=== PATIENT | male | born 1935 | race Hispanic/Latino ===

== ENCOUNTER 2016-11-09 11:21 | Inpatient (IN) | payer MEDICARE, OTHER ==
--- NOTE | 2016-11-09 11:51 | ED PDOC ---
Lower Extremity Pain/Injury Chief Complaint (Provider): right leg open wound History Per: Patient, Family (son ) Additional Complaint(s): 81-year-old male presents to ER for evaluation of open wound to right ankle region. Patient has chronic wound to right ankle region for several years but over the past week he has noticed drainage and erythema to affected area. He denies trauma or injury. He denies any fever or chills. Patient has noted increased pain especially when walking over the past few days. He presents today further evaluation with his son at bedside. PMD: Dr. Dueñas Depalletizer Operator: Dr. Vergara <Angelique Contreras - Last Filed: 11/09/16 19:53> <Angelique Ramey - Last Filed: 11/09/16 23:45> Time Seen by Provider: 11/09/16 11:43 Chief Complaint (Nursing): Lower Extremity Problem/Injury Supervising Attending Note - Supervising Attending Note The Documented history was done by the: Physician Fish Tender The documented physical exam was done by the: Physician Fish Tender, Attending Physician - Attestation: I have personally seen and examined this patient.: Yes I have fully participated in the care of the patient.: Yes I have reviewed all pertinent clinical information, including history, physical exam and plan: Yes <Angelique Ramey - Last Filed: 11/09/16 23:45> Past Medical History Reviewed: Historical Data, Nursing Documentation, Vital Signs Vital Signs: Last Vital Signs Temp 98.2 F 11/09/16 11:27 Pulse 50 L 11/09/16 11:27 Resp 16 11/09/16 11:27 BP 124/68 11/09/16 11:27 Pulse Ox 97 11/09/16 11:27 - Medical History PMH: Atrial Fibrillation, CAD, HTN - Surgical History Surgical History: Pacemaker, Tonsillectomy - Family History Family History: States: No Known Family Hx - Living Arrangements Living Arrangements: Alone - Social History Current smoker - smoking cessation education provided: No Ex-Smoker (has not smoked in the last 12 months): Yes (quit 20 years ago) Alcohol: None Drugs: Denies <Angelique Contreras - Last Filed: 11/09/16 19:53> Vital Signs: Last Vital Signs Temp 98.2 F 11/09/16 11:27 Pulse 35 L 11/09/16 18:50 Resp 19 11/09/16 18:50 BP 159/79 H 11/09/16 18:50 Pulse Ox 97 11/09/16 20:00 <Angelique Ramey - Last Filed: 11/09/16 23:45> - Home Medications Home Medications: Ambulatory Orders Medication Instructions Recorded Calcium Carbonate/Vitamin D3 1 tab DAILY 11/09/16 [Calcium 600-Vit D3 800 Caplet] Cyanocobalamin [Vitamin B12 100 100 mcg PO DAILY 11/09/16 mcg Tab] Digoxin [Lanoxin] 125 mcg PO DAILY 11/09/16 Levothyroxine [Synthroid] 175 mcg PO DAILY 11/09/16 Warfarin Sodium [Jantoven] 2 mg PO QOTHERDAY 11/09/16 Warfarin Sodium [Jantoven] 5 mg PO QOTHERDAY 11/09/16 - Allergies Allergies/Adverse Reactions: Allergies Allergy/AdvReac Type Severity Reaction Status Date / Time No Known Allergies Allergy RASH Verified 11/09/16 11:44 Wells Criteria for PE - Wells Criteria for Pulmonary Embolism Clinical Signs and Symptoms of DVT: No P.E is #1 Diagnosis, or Equally Likely: No Heart Rate >100: No Immobilization at least 3 days;Surgery previous 4 weeks: No Previous, objectively diagnosed PE or DVT: No Hemoptysis: No Malignancy w/treatment within 6 months, or palliative: No Total Score: 0 <Angelique Contreras - Last Filed: 11/09/16 19:53> Review of Systems ROS Statement: Except As Marked, All Systems Reviewed And Found Negative Constitutional: Negative for: Fever, Chills, Weakness Cardiovascular: Negative for: Chest Pain Gastrointestinal: Negative for: Nausea, Vomiting Skin: Positive for: Other (open wound to right leg) Neurological: Negative for: Weakness, Confusion, Headache, Dizziness <Angelique Contreras - Last Filed: 11/09/16 19:53> Physical Exam - Reviewed Nursing Documentation Reviewed: Yes Vital Signs Reviewed: Yes - Physical Exam Appears: Positive for: Well, Non-toxic, No Acute Distress Skin: Negative for: Rash Eye Exam: Positive for: Normal appearance Cardiovascular/Chest: Positive for: Regular Rate, Rhythm Respiratory: Positive for: Normal Breath Sounds Extremity: Positive for: Other (3 cm by 4 cm venous ulcer noted to right lateral ankle, dried purulent discharge noted with no active drainage or bleeding, slight surrounding erythema with no warmth and minimal tenderness to palpation, there is chronic venous stasis dermatitis noted to bilateral lower extremities with no acute cellulitis, no calf tenderness bilaterally, negative Homans sign bilaterally) Neurologic/Psych: Positive for: Alert, Oriented <Angelique Contreras - Last Filed: 11/09/16 19:53> - Laboratory Results Result Diagrams: 11/09/16 13:00 11/09/16 12:20 - ECG Interpretation Of ECG: Junctional bradycardia 36 bpm, reviewed by PA and ED attending. O2 Sat by Pulse Oximetry: 97 Pulse Ox Interpretation: Normal - Other Rad Right ankle and tib/fib x-rays X-Ray: Interpreted by Me, Viewed By Me X-Ray Interpretation: no fx, no dis CXR X-Ray: Read By Radiologist X-Ray Interpretation: see below - Critical Care Total Time (In Min): 30 Comments: Profound bradycardia <Angelique Contreras - Last Filed: 11/09/16 19:53> - Laboratory Results Result Diagrams: 11/09/16 13:00 11/09/16 12:20 <RameyAngelique cárdenas J - Last Filed: 11/09/16 23:45> Medical Decision Making Medical Decision Makin81 year old with open wound to right leg Plan: Blood culture Wound culture CBC CMP X-ray right ankle and tib/fib region Podiatry consult Podiatry resident at bedside applied dressing to open wound. Patient is stable for discharge as per resident with prescription for bactrim DS and follow-up with Dr. Vergara and wound clinic. CXR: LUNGS: Moderate pulmonary vascular congestion. PLEURA: Right pleural effusion. CARDIOVASCULAR: Large cardiac silhouette. Single lead left-sided pacemaker is again seen in place OSSEOUS STRUCTURES: No significant abnormalities. VISUALIZED UPPER ABDOMEN: Normal. OTHER FINDINGS: None. IMPRESSION: Pulmonary vascular congestion pleural effusion and cardiomegaly suggestive of worsening CHF. INR is elevated at 5.1, case was d/w PMD Dr. Dueñas who states to tell patient to hold coumadin for the next 2 days and come to office for repeat INR on Thursday. 4:10 pm: I informed patient and his son at bedside of discharge plan and patient states, "well what about my chest pain and my shortness of breath?" Patient states he has been having intermittent chest pain, shortness of breath and dyspnea on exertion for the past 2 weeks. He neglected to mention this to triage nurse, bedside nurse or feature writer upon arrival to the emergency department. EKG, CXR, Troponin, BNP and d-dimer ordered. Additional call placed to Dr. Dueñas who states to admit patient and order echo for AM. Order placed by feature writer. Patient is aware of and agrees with admission. I discussed case again with podiatry resident who states to start patient on augmentin while admitted and Dr. Vergara will see patient in AM while admitted. As per Dr. Dueñas, Dr. Rob consulted for cardiology. I spoke directly with Dr. Rob who reviewed EKG and states to admit patient to ICU. <Angelique Contreras - Last Filed: 11/09/16 19:53> Disposition - Patient ED Disposition Is Patient to be Admitted: Yes - Disposition Disposition Time: 19:57 - POA Present On Arrival: None <Angelique Contreras - Last Filed: 11/09/16 19:53> <Angelique Ramey J - Last Filed: 11/09/16 23:45> - Clinical Impression Clinical Impression: Ulcer of ankle, Chest pain, Shortness of breath - Disposition Condition: CRITICAL Results - Lab Results Lab Results: 11/09/16 11/09/16 11/09/16 13:40 13:00 12:20 WBC 8.2 RBC 3.71 L Hgb 12.1 Hct 37.9 MCV 102.1 H MCH 32.6 H MCHC 31.9 L RDW 15.9 H Plt Count 149 MPV 8.4 Neut % (Auto) 69.4 Lymph % (Auto) 20.0 [place] % (Auto) 9.6 Eos % (Auto) 0.4 Baso % (Auto) 0.6 Neut # 5.7 Lymph # 1.6 [place] # 0.8 Eos # 0.0 Baso # 0.0 PT 54.3 H* INR 5.1 H APTT 71.9 H Sodium 138 Potassium 4.6 Chloride 105 Carbon Dioxide 22 Anion Gap 16 BUN 27 H Creatinine 1.5 Est GFR ( Amer) 54 Est GFR (Non-Af Amer) 45 Random Glucose 97 Calcium 8.9 Total Bilirubin 0.8 AST 28 ALT 26 Alkaline Phosphatase 82 Total Protein 7.2 Albumin 3.6 Globulin 3.6 Albumin/Globulin Ratio 1.0 <Angelique Contreras - Last Filed: 11/09/16 19:53> - Lab Results Lab Results: 11/09/16 11/09/16 11/09/16 13:40 13:00 12:20 WBC 8.2 RBC 3.71 L Hgb 12.1 Hct 37.9 MCV 102.1 H MCH 32.6 H MCHC 31.9 L RDW 15.9 H Plt Count 149 MPV 8.4 Neut % (Auto) 69.4 Lymph % (Auto) 20.0 [place] % (Auto) 9.6 Eos % (Auto) 0.4 Baso % (Auto) 0.6 Neut # 5.7 Lymph # 1.6 [place] # 0.8 Eos # 0.0 Baso # 0.0 PT 54.3 H* INR 5.1 H APTT 71.9 H Sodium 138 Potassium 4.6 Chloride 105 Carbon Dioxide 22 Anion Gap 16 BUN 27 H Creatinine 1.5 Est GFR ( Amer) 54 Est GFR (Non-Af Amer) 45 Random Glucose 97 Calcium 8.9 Total Bilirubin 0.8 AST 28 ALT 26 Alkaline Phosphatase 82 Total Protein 7.2 Albumin 3.6 Globulin 3.6 Albumin/Globulin Ratio 1.0 <Angelique Ramey J - Last Filed: 11/09/16 23:45>
[2016-11-09 13:52] LABS: BASO % 0.6 % (0.0-2.0); EOS % 0.4 % (0.0-4.0); HEMATOCRIT 37.9 % (35.0-51.0); LYMPH # 1.6 K/uL (1.0-4.3); MEAN CELL VOLUME 102.1 fl (80.0-94.0); MEAN CORPUSCULAR HEMOGLOBIN 32.6 pg (27.0-31.0); MEAN CORPUSCULAR HGB CONC 31.9 g/dL (33.0-37.0); MEAN PLATELET VOLUME 8.4 fl (7.2-11.7); MONO # 0.8 K/uL (0.0-0.8); MONO % 9.6 % (0.0-10.0); NEUT # 5.7 K/uL (1.8-7.0); NEUT % 69.4 % (50.0-75.0); NRBC % 0.1 % (0.0-0.0); RED CELL DISTRIBUTION WIDTH 15.9 % (11.5-14.5); WHITE BLOOD COUNT 8.2 K/uL (4.8-10.8)
[2016-11-09 14:11] LABS: BILIRUBIN,TOTAL 0.8 mg/dl (0.2-1.3); CALCIUM 8.9 mg/dL (8.4-10.2); POTASSIUM 4.6 MMOL/L (3.6-5.0); TOTAL PROTEIN 7.2 G/DL (6.3-8.2)
[2016-11-09 14:19] LABS: PARTIAL THROMBOPLASTIN TIME 71.9 Seconds (25.6-37.1)
[2016-11-09] MEDS ORDERED: Amoxicillin-Clav 875-125 mg Tab PO STA (16:17)
[2016-11-09] MEDS ORDERED: Amoxicillin-Clav 875-125 mg Tab PO ONE (17:13)
[2016-11-09 17:14] LABS: TROPONIN I 0.035 ng/mL (0.00-0.120)
--- NOTE | 2016-11-09 17:48 | RAD ---
PROCEDURE: Radiographs of the right tibia and fibula. HISTORY: wound to lateral ankle COMPARISON: None available. TECHNIQUE: Frontal and lateral views obtained. FINDINGS: BONES: No fracture or destructive lesion. JOINT SPACES: Severe degenerative changes seen at the knee and ankle joints OTHER FINDINGS: Diffuse vascular calcification. IMPRESSION: No radiographic evidence of osteomyelitis or acute pathology.
--- NOTE | 2016-11-09 17:51 | RAD ---
PROCEDURE: Right Ankle Radiographs. HISTORY: wound to lateral ankle COMPARISON: None FINDINGS: BONES: No evidence of acute fracture or dislocation. JOINTS: [id number] osteoarthritis. SOFT TISSUES: Soft tissue defect seen at the distal lateral right leg. OTHER FINDINGS: None. IMPRESSION: No evidence of osteomyelitis. Soft tissue swelling and osteoarthritic changes.
--- NOTE | 2016-11-09 17:56 | RAD ---
HISTORY: SOB COMPARISON: Comparison is made to 12/27/2012 FINDINGS: LUNGS: Moderate pulmonary vascular congestion. PLEURA: Right pleural effusion. CARDIOVASCULAR: Large cardiac silhouette. Single lead left-sided pacemaker is again seen in place OSSEOUS STRUCTURES: No significant abnormalities. VISUALIZED UPPER ABDOMEN: Normal. OTHER FINDINGS: None. IMPRESSION: Pulmonary vascular congestion pleural effusion and cardiomegaly suggestive of worsening CHF.
--- NOTE | 2016-11-09 18:21 | CT ---
PROCEDURE: CT Chest without contrast HISTORY: chest pain, SOB, ? consolidation RML COMPARISON: None. TECHNIQUE: Contiguous axial images were obtained through the chest without intravenous contrast enhancement. Sagittal and coronal reconstructions were performed. Radiation dose (DLP): 718.51 mGy-cm. This CT exam was performed using one or more of the following dose reduction techniques: Automated exposure control, adjustment of the mA and/or kV according to patient size, and/or use of iterative reconstruction technique. FINDINGS: LUNGS: Mild pulmonary vascular congestion there is noted. Bibasilar small atelectasis seen. MEDIASTINUM: Mild aneurysmal changes of the ascending thoracic aorta is noted. The thoracic aorta is otherwise ectatic and tortuous. The heart is moderately enlarged. Single lead is seen extending to the right ventricle. Main pulmonary artery is mildly to moderately enlarged. No lymphadenopathy. PLEURA: There is a small right pleural effusion extending to the right fissure. There is a trace left pleural effusion. BONES: No fracture. No destructive lesion. UPPER ABDOMEN: No evidence of acute pathology in the upper abdomen. OTHER FINDINGS: None. IMPRESSION: Cardiomegaly mild pulmonary vascular congestion and small to moderate size right pleural effusion. The density seen in the chest x-ray at the mid right lung is corresponding to pleural effusion at the right minor fissure. No evidence of pneumonia or suspicious mass in the lungs. Mild bibasilar atelectasis due to pleural effusions. Mild aneurysmal changes of the ascending thoracic aorta.
--- NOTE | 2016-11-09 19:04 | CP.PCM.CON ---
History of Present Illness - History of Present Illness History of Present Illness: 81 year old male with PMH of heart disease and past right lower leg ulceration present to the ED for new right lower leg ulceration. Patient states that he noticed the ulceration for the first time when he was in the shower about 11 days ago. He peeled the skin back and saw the ulceration. He states the ulceration is getting bigger. Reports tenderness to the site. States he had a similar ulceration to the right ankle 3 years ago and was closed by Dr. Davenport through continuos wound care treatments. He reports having compression stockings but do not wear them as much. He denies n/v/sob/cp/chills or f PMH: heard disease, history of ulceration PSH:pacemaker placement 10 years ago MEDS: see meds list ALL: none FH: noncontributory Past Patient History - Past Social History Alcohol: None Drugs: Denies - CARDIAC Hx Atrial Fibrillation: Yes Hx Hypertension: Yes Hx Pacemaker: Yes - ENDOCRINE/METABOLIC Hx Hypothyroidism: Yes - MUSCULOSKELETAL/RHEUMATOLOGICAL Other/Comment: Right leg ulcer - PSYCHIATRIC Hx Substance Use: No - SURGICAL HISTORY Hx Tonsillectomy: Yes - ANESTHESIA Hx Anesthesia: Yes Hx Anesthesia Reactions: No Meds Allergies/Adverse Reactions: Allergies Allergy/AdvReac Type Severity Reaction Status Date / Time No Known Allergies Allergy RASH Verified 11/09/16 11:44 - Medications Medications: Current Medications Amoxicillin/Clavulanate Potassium (Augmentin 875 Mg-125 Mg Tab) 1 tab PO Q12 BRIAN Physical Exam - Constitutional Appears: Well, Toxic, No Acute Distress - Extremities Exam Additional comments: Vasc: DP and PT unpalpable, temperature cool to cool, CFT <4 seconds to the digits, edema noted to the LE bilaterally Ortho: MM is 5/5 in all four compartments, tenderness noted to palpation surrounding ulceration site Neuro: sensation slightly diminished Derm: ulceration on the lateral aspect of lower 1/3 of the right leg measuring approximately 2.5 x 2.5 x .2. Wound base is 70% fibrotic and 30% granular. Mild yellow serous drainage noted, no odor, no purulence noted, erythematous extending to the anterior lateral leg. No probe to bone, no undermining, no tunneling noted. - Neurological Exam Neurological exam: Alert, Oriented x3 - Psychiatric Exam Psychiatric exam: Normal Affect, Normal Mood Results - Vital Signs Recent Vital Signs: Last Vital Signs Temp 98.2 F 11/09/16 11:27 Pulse 35 L 11/09/16 18:50 Resp 19 11/09/16 18:50 BP 159/79 H 11/09/16 18:50 Pulse Ox 99 11/09/16 18:50 - Labs Result Diagrams: 11/09/16 13:00 11/09/16 12:20 Labs: Laboratory Results - last 24 hr 11/09/16 11/09/16 11/09/16 12:20 13:00 13:40 WBC 8.2 RBC 3.71 L Hgb 12.1 Hct 37.9 MCV 102.1 H MCH 32.6 H MCHC 31.9 L RDW 15.9 H Plt Count 149 MPV 8.4 Neut % (Auto) 69.4 Lymph % (Auto) 20.0 [place] % (Auto) 9.6 Eos % (Auto) 0.4 Baso % (Auto) 0.6 Neut # 5.7 Lymph # 1.6 [place] # 0.8 Eos # 0.0 Baso # 0.0 PT 54.3 H* INR 5.1 H APTT 71.9 H D-Dimer, Quantitative Sodium 138 Potassium 4.6 Chloride 105 Carbon Dioxide 22 Anion Gap 16 BUN 27 H Creatinine 1.5 Est GFR ( Amer) 54 Est GFR (Non-Af Amer) 45 Random Glucose 97 Calcium 8.9 Total Bilirubin 0.8 AST 28 ALT 26 Alkaline Phosphatase 82 Troponin I NT-Pro-B Natriuret Pep Total Protein 7.2 Albumin 3.6 Globulin 3.6 Albumin/Globulin Ratio 1.0 TSH 3rd Generation Digoxin 11/09/16 11/09/16 11/09/16 16:46 16:46 17:24 WBC RBC Hgb Hct MCV MCH MCHC RDW Plt Count MPV Neut % (Auto) Lymph % (Auto) [place] % (Auto) Eos % (Auto) Baso % (Auto) Neut # Lymph # [place] # Eos # Baso # PT INR APTT D-Dimer, Quantitative 122 Sodium Potassium Chloride Carbon Dioxide Anion Gap BUN Creatinine Est GFR ( Amer) Est GFR (Non-Af Amer) Random Glucose Calcium Total Bilirubin AST ALT Alkaline Phosphatase Troponin I 0.0350 NT-Pro-B Natriuret Pep 6740 H Total Protein Albumin Globulin Albumin/Globulin Ratio TSH 3rd Generation Digoxin 1.4 11/09/16 17:24 WBC RBC Hgb Hct MCV MCH MCHC RDW Plt Count MPV Neut % (Auto) Lymph % (Auto) [place] % (Auto) Eos % (Auto) Baso % (Auto) Neut # Lymph # [place] # Eos # Baso # PT INR APTT D-Dimer, Quantitative Sodium Potassium Chloride Carbon Dioxide Anion Gap BUN Creatinine Est GFR ( Amer) Est GFR (Non-Af Amer) Random Glucose Calcium Total Bilirubin AST ALT Alkaline Phosphatase Troponin I NT-Pro-B Natriuret Pep Total Protein Albumin Globulin Albumin/Globulin Ratio TSH 3rd Generation 2.94 Digoxin Assessment & Plan - Assessment and Plan (Free Text) Assessment: 81 year old male with PMH of heart disease and history of right lower leg ulceration present to the ED for right lower leg ulceration most likely 2/2 venous stasis Plan: Patient was examined and evaluated in the ED Charts, labs, vitals reviewed (afebrile, WBC=8.2) X-ray reviewed- no fracture or destructive lesion noted; no OM or acute patholog Ulceration cleansed, dressed with betadine W2D, 4x4, kerlix, and light MAHI Wound culture pending results Pt will be started on broad spectrum antibiotics Patient will follow up with Dr. Davenport in wound care upon discharge within a week Per ED pt will be admitted for SOB and chest pain Will follow once on floors Thank you for the consult
--- NOTE | 2016-11-09 20:29 | CP.PCM.CON ---
History of Present Illness - History of Present Illness History of Present Illness: PCP: Nabor Sanchez MD Network Operations Project Manager: Dr Vergara Reason for Consult: Critical care Management Chief Complaint: SOB/ Chest Pain/right leg ulceration The patient was seen and examined in the ED HPI: 81 years old male with hx of Hypothyroidism, has a Pacemaker inserted 10 years ago and is on Coumadin and Digoxin, Presumably for A Fib. He comes with 2 weeks of worsening SOB on minimal exertion, after walking 5-10 feet he has to stop to catch his breath. He refers intermittent chest pains chest pain to the ED staff but told me that he did not suffer chest pains. No palpitation nausea, vomits nor coughing. He has chronic wound to the right ankle region for several years and over the past week has noted drainage and erythema to the affected area. no trauma, fever nor chills. the pain increases with walking and if the area is traumatized. In the ED the patient was noted to have a Heart Rate of 30s with normal blood pressured PMH: A Fib; Hypothyroidism; CAD PSH: Pacemaker insertion; Tonsillectomy SH: Former Smoker; occasional alcohol; Live with Son; No illegal drug use FH: States: No Known Family Hx Allergies: NKDA Review of Systems - Constitutional Constitutional: absent: Anorexia, Chills, Fever, Headache, Weakness - EENT Eyes: Requires Corrective Lenses. absent: Diplopia, Floaters, Sees Flashes Ears: Decreased Hearing. absent: Tinnitus Nose/Mouth/Throat: absent: Epistaxis, Nasal Congestion, Nasal Discharge, Sinus Pain, Sinus Pressure - Cardiovascular Cardiovascular: Chest Pain, Dyspnea, Leg Edema, Leg Ulcers - Respiratory Respiratory: Dyspnea. absent: Cough, Wheezing - Gastrointestinal Gastrointestinal: absent: Constipation, Diarrhea - Genitourinary Genitourinary: absent: Dysuria, Flank Pain, Hematuria - Musculoskeletal Musculoskeletal: Arthralgias Additional comments: Uses cane and walker to ambulate - Integumentary Integumentary: Skin Ulcer, Swelling. absent: Pruritus, Rash Additional comments: Ulceration at distal half of right leg - Neurological Neurological: absent: Confusion, Dizziness, Headaches, Tremor, Weakness - Psychiatric Psychiatric: absent: Anxiety, Confusion, Depression, Panic Attacks - Endocrine Endocrine: absent: Palpitations, Polydipsia, Polyphagia, Polyuria - Hematologic/Lymphatic Hematologic: absent: Easy Bleeding, Easy Bruising Past Patient History - Past Social History Smoking Status: Former Smoker Chewing Tobacco Use: No Cigar Use: No Alcohol: Occasional Drugs: Denies Home Situation {Lives}: With Family - CARDIAC Hx Atrial Fibrillation: Yes Hx Hypertension: Yes Hx Pacemaker: Yes - PULMONARY Hx Respiratory Disorders: No - NEUROLOGICAL Hx Neurological Disorder: No - HEENT Hx HEENT Problems: No - RENAL Hx Chronic Kidney Disease: No - ENDOCRINE/METABOLIC Hx Hypothyroidism: Yes - HEMATOLOGICAL/ONCOLOGICAL Hx Blood Disorders: No - INTEGUMENTARY Hx Dermatological Problems: No - MUSCULOSKELETAL/RHEUMATOLOGICAL Hx Musculoskeletal Disorders: Yes Other/Comment: Right leg ulcer - GASTROINTESTINAL Hx Gastrointestinal Disorders: No - GENITOURINARY/GYNECOLOGICAL Hx Genitourinary Disorders: No - PSYCHIATRIC Hx Psychophysiologic Disorder: No Hx Substance Use: No - SURGICAL HISTORY Hx Tonsillectomy: Yes Other/Comment: Paccemaker insertion - ANESTHESIA Hx Anesthesia: Yes Hx Anesthesia Reactions: No Meds Allergies/Adverse Reactions: Allergies Allergy/AdvReac Type Severity Reaction Status Date / Time No Known Allergies Allergy RASH Verified 11/09/16 11:44 - Medications Medications: Current Medications Amoxicillin/Clavulanate Potassium (Augmentin 875 Mg-125 Mg Tab) 1 tab PO Q12 [facility] Physical Exam - Head Exam Head Exam: ATRAUMATIC, NORMOCEPHALIC - Eye Exam Eye Exam: EOMI, PERRL Pupil Exam: NORMAL ACCOMODATION, PERRL - ENT Exam ENT Exam: Mucous Membranes Moist, Normal Exam, Normal External Ear Exam Additional comments: Poor dentition - Neck Exam Neck exam: Positive for: Full Rom, Normal Inspection. Negative for: Lymphadenopathy, Tenderness - Respiratory Exam Respiratory Exam: Clear to Auscultation Bilateral. absent: Rales, Rhonchi, Wheezes - Cardiovascular Exam Cardiovascular Exam: Bradycardia, RRR, +S1, +S2 - GI/Abdominal Exam GI & Abdominal Exam: Normal Bowel Sounds, Soft Additional comments: Obese, Soft, nontender, +ve bowel sounds. - Rectal Exam Rectal Exam: Deferred - Extremities Exam Extremities exam: Negative for: joint swelling Additional comments: Trace edema at both lower estremity - Back Exam Back exam: NORMAL INSPECTION. absent: CVA tenderness (L), CVA tenderness (R) - Neurological Exam Neurological exam: Alert, CN II-XII Intact, Oriented x3, Reflexes Normal - Psychiatric Exam Psychiatric exam: Normal Affect, Normal Mood - Skin Skin Exam: Dry, Normal Color, Warm Additional comments: Ulceration at the right leg dressed by Podiatry. Bronz coloration at both ankles Results - Vital Signs Recent Vital Signs: Last Vital Signs Temp 98.2 F 11/09/16 11:27 Pulse 35 L 11/09/16 18:50 Resp 19 11/09/16 18:50 BP 159/79 H 11/09/16 18:50 Pulse Ox 97 11/09/16 20:00 - Labs Result Diagrams: 11/09/16 13:00 11/09/16 12:20 Labs: Laboratory Results - last 24 hr 11/09/16 11/09/16 11/09/16 12:20 13:00 13:40 WBC 8.2 RBC 3.71 L Hgb 12.1 Hct 37.9 MCV 102.1 H MCH 32.6 H MCHC 31.9 L RDW 15.9 H Plt Count 149 MPV 8.4 Neut % (Auto) 69.4 Lymph % (Auto) 20.0 Clark % (Auto) 9.6 Eos % (Auto) 0.4 Baso % (Auto) 0.6 Neut # 5.7 Lymph # 1.6 Clark # 0.8 Eos # 0.0 Baso # 0.0 PT 54.3 H* INR 5.1 H APTT 71.9 H D-Dimer, Quantitative Sodium 138 Potassium 4.6 Chloride 105 Carbon Dioxide 22 Anion Gap 16 BUN 27 H Creatinine 1.5 Est GFR ( Amer) 54 Est GFR (Non-Af Amer) 45 Random Glucose 97 Calcium 8.9 Total Bilirubin 0.8 AST 28 ALT 26 Alkaline Phosphatase 82 Troponin I NT-Pro-B Natriuret Pep Total Protein 7.2 Albumin 3.6 Globulin 3.6 Albumin/Globulin Ratio 1.0 TSH 3rd Generation Digoxin 11/09/16 11/09/16 11/09/16 16:46 16:46 17:24 WBC RBC Hgb Hct MCV MCH MCHC RDW Plt Count MPV Neut % (Auto) Lymph % (Auto) Clark % (Auto) Eos % (Auto) Baso % (Auto) Neut # Lymph # Clark # Eos # Baso # PT INR APTT D-Dimer, Quantitative 122 Sodium Potassium Chloride Carbon Dioxide Anion Gap BUN Creatinine Est GFR ( Amer) Est GFR (Non-Af Amer) Random Glucose Calcium Total Bilirubin AST ALT Alkaline Phosphatase Troponin I 0.0350 NT-Pro-B Natriuret Pep 6740 H Total Protein Albumin Globulin Albumin/Globulin Ratio TSH 3rd Generation Digoxin 1.4 11/09/16 17:24 WBC RBC Hgb Hct MCV MCH MCHC RDW Plt Count MPV Neut % (Auto) Lymph % (Auto) Clark % (Auto) Eos % (Auto) Baso % (Auto) Neut # Lymph # Clark # Eos # Baso # PT INR APTT D-Dimer, Quantitative Sodium Potassium Chloride Carbon Dioxide Anion Gap BUN Creatinine Est GFR ( Amer) Est GFR (Non-Af Amer) Random Glucose Calcium Total Bilirubin AST ALT Alkaline Phosphatase Troponin I NT-Pro-B Natriuret Pep Total Protein Albumin Globulin Albumin/Globulin Ratio TSH 3rd Generation 2.94 Digoxin - EKG Data EKG comments: Junctional Bradycardia 32/min - Imaging and Cardiology Chest x-ray Status: Image reviewed by me, Report reviewed by me Additional comment: Pacemaker at left chest wall with lead ending at the right ventricle Left lower lung opacity with atelectasis at the right mif lung CT scan - chest Status: Image reviewed by me, Report reviewed by me Additional comment: Bilateral small Atelectasis Mild Pulmonary vascular congestion Right pleural effusion Cardiomegaly X Ray Right Ankle Status: Image reviewed by me, Report reviewed by me Additional comment: No evidence of Osteomyelitis Soft tissue swelling + osteoarthritic changes Right Tib-Fibula X Ray Status: Image reviewed by me, Report reviewed by me Additional comment: No Osteomyelitis or acute pathology Assessment & Plan - Assessment and Plan (Free Text) Assessment: #. Symptomatic Bradycardia #. Chronic CHF #. AtrialFibrillation #. Coagulopathy #. Macrocytic Anemia #. Dehydration #. Hypothyroidism #. Plan: 81 years old male with hx of Hypothyroidism, has a Pacemaker inserted 10 years ago and is on Coumadin and Digoxin, Presumably for A Fib. He comes with 2 weeks of worsening SOB on minimal exertion, after walking 5-10, intermittent chest pains chest pain. He has chronic wound to the right ankle region for several years and over the past week has noted drainage and erythema to the affected area. In the ED the patient was noted to have a Heart Rate of 30s. #. Symptomatic Bradycardia could be of Sick Sinus Syndrome but being junctional rhythm and with the EKG configuration, Consider Digoxin toxication - Consult Dr Rob Cardiology - Admit to ICU with External Pacemaker attached and Atropin in the Unit - Close observation for sighs of Decompensation - ECHO - Troponin #. Chronic CHF - ECHO - No lasix at present because Patient is Stable in bed and is dehydrated at present - No Beta Alpa; - Francisco Inhibitor could be used for Blood pressure control #. Atrial Fibrillation by hx - Hold Digoxin and Coumadin -Cardiac Monitoring #. Coagulopathy - Small dose of Vitamin K given 5mg - FFP one unit to reduce INR for possible Surgery to replace Pacemaker -follow INR #. Nonfunctioning Pacemaker Probably battery is - Pacemaker interrogation #. Macrocytic Anemia - Continue Vitamin B12 -follow Hb #. Hypothyroidism - TSH 2.94 - Synthroid #. DVT prophylaxis: Patients INR is already elevated from Coumadin #. Code Status: Full - Date & Time Date: 11/09/16 Time: 20:29
[2016-11-10] MEDS ORDERED: Amoxicillin-Clav 875-125 mg Tab PO ONE (04:09)
[2016-11-10] MEDS: Amoxicillin-Clav 875-125 mg Tab PO SCH ×3 (04:09→21:25)
[2016-11-10 05:57] LABS: PARTIAL THROMBOPLASTIN TIME 45.8 Seconds (25.6-37.1)
[2016-11-10 06:02] LABS: CALCIUM 9.2 mg/dL (8.4-10.2); MAGNESIUM 1.7 MG/DL (1.6-2.3); PHOSPHOROUS 2.8 mg/dl (2.5-4.5)
[2016-11-10 07:34] LABS: HEMATOCRIT 36.2 % (35.0-51.0); MEAN CELL VOLUME 101.1 fl (80.0-94.0); MEAN CORPUSCULAR HEMOGLOBIN 32.9 pg (27.0-31.0); MEAN CORPUSCULAR HGB CONC 32.6 g/dL (33.0-37.0); RED CELL DISTRIBUTION WIDTH 15.7 % (11.5-14.5); WHITE BLOOD COUNT 8.1 K/uL (4.8-10.8)
--- NOTE | 2016-11-10 08:01 | CP.PCM.CON ---
History of Present Illness - History of Present Illness History of Present Illness: I was asked to see patient by Dr. Dueñas. Patient is a 81 year old male with PMH HTN, afib, PPM (10 yrs ago) who presents with dyspnea. He states symptoms began about one week ago and now cannot walk more than 10 feet before becoming dyspneic. EKG revealed afib with escape rate of 30. Patient was admitted to ICU for further evaluation. Vit K and FFP were given for elevated INR. Review of Systems - Constitutional Constitutional: Weakness - EENT Eyes: absent: As Per HPI, Blind Spots, Blurred Vision, Change in Vision, Decreased Night Vision, Diplopia, Discharge, Dry Eye, Exophthalmos, Floaters, Irritation, Itchy Eyes, Loss of Peripheral Vision, Pain, Photophobia, Requires Corrective Lenses, Sees Flashes, Spots in Vision, Tunnel Vision, Other Visual Disturbances, Loss of Vision, Other Ears: absent: As Per HPI, Decreased Hearing, Ear Discharge, Ear Pain, Tinnitus, Abnormal Hearing, Disequilibrium, Dizziness, Other Nose/Mouth/Throat: absent: As Per HPI, Epistaxis, Nasal Congestion, Nasal Discharge, Nasal Obstruction, Nasal Trauma, Nose Pain, Post Nasal Drip, Sinus Pain, Sinus Pressure, Bleeding Gums, Change in Voice, Dental Pain, Dry Mouth, Dysphagia, Halitosis, Hoarsness, Lip Swelling, Mouth Lesions, Mouth Pain, Odynophagia, Sore Throat, Throat Swelling, Tongue Swelling, Facial Pain, Neck Pain, Neck Mass, Other - Cardiovascular Cardiovascular: Dyspnea on Exertion, Leg Ulcers, Pedal Edema - Respiratory Respiratory: Dyspnea - Gastrointestinal Gastrointestinal: absent: As Per HPI, Abdominal Pain, Belching, Bloating, Change in Bowel Habits, Change in Stool Character, Coffee Ground Emesis, Constipation, Cramping, Diarrhea, Dyspepsia, Dysphagia, Early Satiety, Excessive Flatus, Fecal Incontinence, Heartburn, Hematemesis, Hematochezia, Loose Stools, Melena, Nausea, Odynophagia, Temesmus, Vomiting, Other - Genitourinary Genitourinary: absent: As Per HPI, Change in Urinary Stream, Difficulty Urinating, Dysuria, Flank Pain, Hematuria, Pyuria, Nocturia, Urinary Incontinence, Urinary Frequency, Urinary Hesitance, Urinary Urgency, Voiding Freq/Small Amts, Freq UTI, Hx Renal/Bladder Calculi, Hx /Renal Surgery, Bladder Distension, Other - Musculoskeletal Musculoskeletal: absent: As Per HPI, Abnormal Gait, Arthralgias, Atrophy, Back Pain, Deformity, Joint Swelling, Limited Range of Motion, Loss of Height, Muscle Cramps, Muscle Weakness, Myalgias, Neck Pain, Numbness, Radiating Pain into Limb, Stiffness, Tingling, Other - Integumentary Integumentary: absent: As Per HPI, Acne, Alopecia, Bleeding Lesions, Change in Hair, Change in Nails, Change in Pigmentation, Changing Lesions, Dry Skin, Erythema, Furuncle, Hirsutism, Lesions, New Lesions, Non-Healing Lesions, Photosensitivity, Pruritus, Rash, Skin Pain, Skin Ulcer, Sores, Striae, Swelling , Unusual Bruising, Wounds, Jaundice, Other - Neurological Neurological: absent: As Per HPI, Abnormal Gait, Abnormal Hearing, Abnormal Movements, Abnormal Speech, Behavioral Changes, Burning Sensations, Confusion, Convulsions, Disequilibrium, Dizziness, Numbness, Focal Weakness, Frequent Falls , Headaches, Lack of Coordination, Loss of Vision, Memory Loss, Paresthesias, Radicular Pain, Restless Legs, Sensory Deficit, Syncope, Tingling, Tremor, Vertigo, Weakness, Other Visual Disturbances, Other - Psychiatric Psychiatric: absent: As Per HPI, Abnormal Sleep Pattern, Anhedonia, Anxiety, Auditory Hallucinations, Behavioral Changes, Change in Appetite, Change in Libido, Confusion, Depression, Difficulty Concentrating, Hallucinations, Homicidal Ideation, Hopelessness, Irritability, Memory Loss, Mood Swings, Panic Attacks, Paranoia, Suicidal Ideation, Visual Hallucinations, Tactile Hallucinations, Other - Endocrine Endocrine: absent: As Per HPI, Change in Body Appearance, Change in Libido, Cold Intolorance, Deepening of Voice, Excessive Sweating, Fatigue, Flushing, Heat Intolorance, Increase in Ring/Shoe/Hat Size, Palpitations, Polydipsia, Polyphagia, Polyuria, Other - Hematologic/Lymphatic Hematologic: absent: As Per HPI, Easy Bleeding, Easy Bruising, Lymphadenopathy, Other Past Patient History - Past Social History Smoking Status: Former Smoker Chewing Tobacco Use: No Cigar Use: No Alcohol: Occasional Drugs: Denies Home Situation {Lives}: With Family - CARDIAC Hx Atrial Fibrillation: Yes Hx Hypertension: Yes Hx Pacemaker: Yes - PULMONARY Hx Respiratory Disorders: No - NEUROLOGICAL Hx Neurological Disorder: No - HEENT Hx HEENT Problems: No - RENAL Hx Chronic Kidney Disease: No - ENDOCRINE/METABOLIC Hx Hypothyroidism: Yes - HEMATOLOGICAL/ONCOLOGICAL Hx Blood Disorders: No - INTEGUMENTARY Hx Dermatological Problems: No - MUSCULOSKELETAL/RHEUMATOLOGICAL Hx Musculoskeletal Disorders: Yes Other/Comment: Right leg ulcer - GASTROINTESTINAL Hx Gastrointestinal Disorders: No - GENITOURINARY/GYNECOLOGICAL Hx Genitourinary Disorders: No - PSYCHIATRIC Hx Psychophysiologic Disorder: No Hx Substance Use: No - SURGICAL HISTORY Hx Tonsillectomy: Yes Other/Comment: Paccemaker insertion - ANESTHESIA Hx Anesthesia: Yes Hx Anesthesia Reactions: No Meds Allergies/Adverse Reactions: Allergies Allergy/AdvReac Type Severity Reaction Status Date / Time No Known Allergies Allergy RASH Verified 11/09/16 11:44 - Medications Medications: Current Medications Amoxicillin/Clavulanate Potassium (Augmentin 875 Mg-125 Mg Tab) 1 tab PO Q12 [facility] Last Admin: 11/10/16 04:09 Dose: 1 tab Cyanocobalamin (Vitamin B12 1000 Mcg Tab) 1,000 mcg PO DAILY [facility] Levothyroxine Sodium (Synthroid) 175 mcg PO DAILY@0630 [facility] Physical Exam - Constitutional Appears: Non-toxic - Head Exam Head Exam: NORMAL INSPECTION - Eye Exam Eye Exam: Normal appearance - ENT Exam ENT Exam: Mucous Membranes Moist - Neck Exam Neck exam: Positive for: Full Rom - Respiratory Exam Respiratory Exam: Decreased Breath Sounds - Cardiovascular Exam Cardiovascular Exam: Bradycardia, Irregular Rhythm, Systolic Murmur - GI/Abdominal Exam GI & Abdominal Exam: Normal Bowel Sounds - Rectal Exam Rectal Exam: Deferred - Extremities Exam Extremities exam: Positive for: pedal edema - Back Exam Back exam: NORMAL INSPECTION - Neurological Exam Neurological exam: Alert, Oriented x3 - Psychiatric Exam Psychiatric exam: Normal Affect - Skin Skin Exam: Normal Color Results - Vital Signs Recent Vital Signs: Last Vital Signs Temp 98 F 11/10/16 06:50 Pulse 35 L 11/10/16 06:50 Resp 15 11/10/16 06:50 BP 144/65 11/10/16 06:50 Pulse Ox 99 11/10/16 06:50 - Labs Result Diagrams: 11/09/16 13:00 11/10/16 04:00 Labs: Laboratory Results - last 24 hr 11/09/16 11/09/16 11/09/16 12:20 13:00 13:40 WBC 8.2 RBC 3.71 L Hgb 12.1 Hct 37.9 MCV 102.1 H MCH 32.6 H MCHC 31.9 L RDW 15.9 H Plt Count 149 MPV 8.4 Neut % (Auto) 69.4 Lymph % (Auto) 20.0 Terry % (Auto) 9.6 Eos % (Auto) 0.4 Baso % (Auto) 0.6 Neut # 5.7 Lymph # 1.6 Terry # 0.8 Eos # 0.0 Baso # 0.0 PT 54.3 H* INR 5.1 H APTT 71.9 H D-Dimer, Quantitative Sodium 138 Potassium 4.6 Chloride 105 Carbon Dioxide 22 Anion Gap 16 BUN 27 H Creatinine 1.5 Est GFR ( Amer) 54 Est GFR (Non-Af Amer) 45 Random Glucose 97 Calcium 8.9 Phosphorus Magnesium Total Bilirubin 0.8 AST 28 ALT 26 Alkaline Phosphatase 82 Troponin I NT-Pro-B Natriuret Pep Total Protein 7.2 Albumin 3.6 Globulin 3.6 Albumin/Globulin Ratio 1.0 Triglycerides Cholesterol LDL Cholesterol Direct HDL Cholesterol TSH 3rd Generation Digoxin Blood Type Antibody Screen BBK History Checked 11/09/16 11/09/16 11/09/16 16:46 16:46 17:24 WBC RBC Hgb Hct MCV MCH MCHC RDW Plt Count MPV Neut % (Auto) Lymph % (Auto) Terry % (Auto) Eos % (Auto) Baso % (Auto) Neut # Lymph # Terry # Eos # Baso # PT INR APTT D-Dimer, Quantitative 122 Sodium Potassium Chloride Carbon Dioxide Anion Gap BUN Creatinine Est GFR ( Amer) Est GFR (Non-Af Amer) Random Glucose Calcium Phosphorus Magnesium Total Bilirubin AST ALT Alkaline Phosphatase Troponin I 0.0350 NT-Pro-B Natriuret Pep 6740 H Total Protein Albumin Globulin Albumin/Globulin Ratio Triglycerides Cholesterol LDL Cholesterol Direct HDL Cholesterol TSH 3rd Generation Digoxin 1.4 Blood Type Antibody Screen BBK History Checked 11/09/16 11/10/16 11/10/16 17:24 00:32 04:00 WBC RBC Hgb Hct MCV MCH MCHC RDW Plt Count MPV Neut % (Auto) Lymph % (Auto) Terry % (Auto) Eos % (Auto) Baso % (Auto) Neut # Lymph # Terry # Eos # Baso # PT 28.5 H D INR 2.7 H D APTT 45.8 H D D-Dimer, Quantitative Sodium Potassium Chloride Carbon Dioxide Anion Gap BUN Creatinine Est GFR ( Amer) Est GFR (Non-Af Amer) Random Glucose Calcium Phosphorus Magnesium Total Bilirubin AST ALT Alkaline Phosphatase Troponin I NT-Pro-B Natriuret Pep Total Protein Albumin Globulin Albumin/Globulin Ratio Triglycerides Cholesterol LDL Cholesterol Direct HDL Cholesterol TSH 3rd Generation 2.94 Digoxin Blood Type B POSITIVE Antibody Screen Negative BBK History Checked Patient has bt 11/10/16 04:00 WBC RBC Hgb Hct MCV MCH MCHC RDW Plt Count MPV Neut % (Auto) Lymph % (Auto) Terry % (Auto) Eos % (Auto) Baso % (Auto) Neut # Lymph # Terry # Eos # Baso # PT INR APTT D-Dimer, Quantitative Sodium 140 Potassium 5.0 Chloride 104 Carbon Dioxide 26 Anion Gap 15 BUN 24 H Creatinine 1.5 Est GFR ( Amer) 54 Est GFR (Non-Af Amer) 45 Random Glucose 86 Calcium 9.2 Phosphorus 2.8 Magnesium 1.7 Total Bilirubin AST ALT Alkaline Phosphatase Troponin I NT-Pro-B Natriuret Pep Total Protein Albumin Globulin Albumin/Globulin Ratio Triglycerides 46 Cholesterol 79 LDL Cholesterol Direct 37 HDL Cholesterol 25 L TSH 3rd Generation Digoxin Blood Type Antibody Screen BBK History Checked - EKG Data EKG Interpreted by: Myself Rate: Bradycardia - EKG Data EKG Specific Queries Rhythm: Atrial Fib Assessment & Plan (1) Chronic a-fib Assessment and Plan: slow ventricular response. recommend holding coumadin Status: Acute (2) Junctional escape rhythm Status: Acute - Assessment and Plan (Free Text) Assessment: likely end of life on PPM. Hemodynamically stable. I recommend EP eval for PPM. I will give Vit K for coagulaopathy.
--- NOTE | 2016-11-10 08:15 | CP.PCM.PN ---
Subjective - Date & Time of Evaluation Date of Evaluation: 11/10/16 Time of Evaluation: 08:13 - Subjective Subjective: 81 y/o male seen at bedside in ICU for right lower leg ulceration. Patient appears in NAD and is AAOx3. Patient states that he stayed in the ED overnight and got transferred to ICU this morning. Patient denies of any overnight events. Patient denies of any pain today. Patient denies of any F/N/V/C/SOB today. Denies of any other pedal complains. Objective - Vital Signs/Intake and Output Vital Signs (last 24 hours): Temp Pulse Resp BP Pulse Ox 98 F 35 L 15 144/65 99 11/10/16 06:50 11/10/16 06:50 11/10/16 06:50 11/10/16 06:50 11/10/16 06:50 Intake and Output: 11/10/16 11/10/16 06:59 18:59 Intake Total 0 Output Total 200 Balance -200 - Medications Medications: Current Medications Amoxicillin/Clavulanate Potassium (Augmentin 875 Mg-125 Mg Tab) 1 tab PO Q12 [facility] Last Admin: 11/10/16 04:09 Dose: 1 tab Cyanocobalamin (Vitamin B12 1000 Mcg Tab) 1,000 mcg PO DAILY [facility] Levothyroxine Sodium (Synthroid) 175 mcg PO DAILY@0630 [facility] Phytonadione (Vitamin K Inj) 10 mg SC ONCE ONE Stop: 11/10/16 08:03 - Labs Labs: 11/10/16 05:30 11/10/16 04:00 PT 28.5 Seconds (9.8-13.1) H D 11/10/16 04:00 INR 2.7 (0.9-1.2) H D 11/10/16 04:00 APTT 45.8 Seconds (25.6-37.1) H D 11/10/16 04:00 - Constitutional Appears: Well, Non-toxic, No Acute Distress - Extremities Exam Additional comments: Vasc: DP and PT non-palpable, CFT <4 seconds to the digits, temperature gradient cool to cool from proximal to distal, edema noted to the LE bilaterally Derm: ulceration on the lateral aspect of lower 1/3 of the right leg measuring 3.0 x 2.5 x .2. Wound base is 70% fibrotic and 30% granular. minimal serous drainage noted, no malodor, no purulence noted, erythema extending to the anterior lateral leg. No probe to bone, no undermining, no tunneling noted, no suspicion of active infection Neuro: protective sensation slightly diminished Ortho: MM is 5/5 in all four compartments, tenderness noted to palpation surrounding ulceration site - Neurological Exam Neurological Exam: Alert, Awake, Oriented x3 - Psychiatric Exam Psychiatric exam: Normal Affect, Normal Mood Assessment and Plan - Assessment and Plan (Free Text) Assessment: 81 year old male with right lower leg ulceration likely due to 2/2 venous stasis Plan: Patient seen and evaluated bedside Patient discussed in details with attending Dr. Davenport Charts, labs, vitals reviewed (afebrile, WBC @ 8.1) X-ray reviewed- no fracture or destructive lesion noted; no OM or acute pathology Ulceration cleansed, dressed with silvasorb, DSD and MAHI Wound culture pending results Patient is currently on PO Augmentin Patient is stable from podiatry standpoint Podiatry to follow patient while in-house Patient will follow up with Dr. Davenport in wound care on weekly basis upon discharge
[2016-11-10] MEDS ORDERED: Phytonadione 10 mg/ml Inj (Adult) SC ONE (08:30)
[2016-11-10] MEDS: Levothyroxine 175 MCG TAB PO SCH (08:52)
[2016-11-10] MEDS ORDERED: Influenza Vaccine 18yr & older 0.5 ML/45 MCG SYR IM ONE (10:14)
--- NOTE | 2016-11-10 10:56 | CP.PCM.HP ---
History of Present Illness - History of Present Illness History of Present Illness: This is an 81 y/o male with hx of atrial fibrillation on pacemaker, hypothyroidism and HTN on maintenance meds was admitted bradycardia and CHF, He has been compliant with meds and claims that for the past 2 weeks he has not been feeling well. He has recurrence of wound on the right leg for which he follows up with Dr [facility]. Past Patient History - Past Medical History & Family History Past Medical History?: Yes - Past Social History Smoking Status: Former Smoker Chewing Tobacco Use: No Cigar Use: No Alcohol: Occasional Drugs: Denies Home Situation {Lives}: With Family - CARDIAC Hx Atrial Fibrillation: Yes Hx Hypertension: Yes Hx Pacemaker: Yes - PULMONARY Hx Respiratory Disorders: No - NEUROLOGICAL Hx Neurological Disorder: No - HEENT Hx HEENT Problems: No - RENAL Hx Chronic Kidney Disease: No - ENDOCRINE/METABOLIC Hx Hypothyroidism: Yes - HEMATOLOGICAL/ONCOLOGICAL Hx Blood Disorders: No - INTEGUMENTARY Hx Dermatological Problems: No - MUSCULOSKELETAL/RHEUMATOLOGICAL Hx Musculoskeletal Disorders: Yes Other/Comment: Right leg ulcer - GASTROINTESTINAL Hx Gastrointestinal Disorders: No - GENITOURINARY/GYNECOLOGICAL Hx Genitourinary Disorders: No - PSYCHIATRIC Hx Psychophysiologic Disorder: No Hx Substance Use: No - SURGICAL HISTORY Hx Tonsillectomy: Yes Other/Comment: Paccemaker insertion - ANESTHESIA Hx Anesthesia: Yes Hx Anesthesia Reactions: No Meds Allergies/Adverse Reactions: Allergies Allergy/AdvReac Type Severity Reaction Status Date / Time No Known Allergies Allergy RASH Verified 11/09/16 11:44 Results - Vital Signs Recent Vital Signs: Last Vital Signs Temp 97.0 F L 11/10/16 08:00 Pulse 31 L 11/10/16 10:00 Resp 18 11/10/16 10:00 BP 138/71 11/10/16 10:00 Pulse Ox 100 11/10/16 10:00 - Labs Result Diagrams: 11/10/16 05:30 11/10/16 04:00 Labs: Laboratory Results - last 24 hr 11/09/16 11/09/16 11/09/16 12:20 13:00 13:40 WBC 8.2 RBC 3.71 L Hgb 12.1 Hct 37.9 MCV 102.1 H MCH 32.6 H MCHC 31.9 L RDW 15.9 H Plt Count 149 MPV 8.4 Neut % (Auto) 69.4 Lymph % (Auto) 20.0 [place] % (Auto) 9.6 Eos % (Auto) 0.4 Baso % (Auto) 0.6 Neut # 5.7 Lymph # 1.6 [place]lette # 0.8 Eos # 0.0 Baso # 0.0 PT 54.3 H* INR 5.1 H APTT 71.9 H D-Dimer, Quantitative Sodium 138 Potassium 4.6 Chloride 105 Carbon Dioxide 22 Anion Gap 16 BUN 27 H Creatinine 1.5 Est GFR ( Amer) 54 Est GFR (Non-Af Amer) 45 Random Glucose 97 Calcium 8.9 Phosphorus Magnesium Total Bilirubin 0.8 AST 28 ALT 26 Alkaline Phosphatase 82 Troponin I NT-Pro-B Natriuret Pep Total Protein 7.2 Albumin 3.6 Globulin 3.6 Albumin/Globulin Ratio 1.0 Triglycerides Cholesterol LDL Cholesterol Direct HDL Cholesterol TSH 3rd Generation Digoxin Blood Type Antibody Screen BBK History Checked 11/09/16 11/09/16 11/09/16 16:46 16:46 17:24 WBC RBC Hgb Hct MCV MCH MCHC RDW Plt Count MPV Neut % (Auto) Lymph % (Auto) [place] % (Auto) Eos % (Auto) Baso % (Auto) Neut # Lymph # [place] # Eos # Baso # PT INR APTT D-Dimer, Quantitative 122 Sodium Potassium Chloride Carbon Dioxide Anion Gap BUN Creatinine Est GFR ( Amer) Est GFR (Non-Af Amer) Random Glucose Calcium Phosphorus Magnesium Total Bilirubin AST ALT Alkaline Phosphatase Troponin I 0.0350 NT-Pro-B Natriuret Pep 6740 H Total Protein Albumin Globulin Albumin/Globulin Ratio Triglycerides Cholesterol LDL Cholesterol Direct HDL Cholesterol TSH 3rd Generation Digoxin 1.4 Blood Type Antibody Screen BBK History Checked 11/09/16 11/10/16 11/10/16 17:24 00:32 04:00 WBC RBC Hgb Hct MCV MCH MCHC RDW Plt Count MPV Neut % (Auto) Lymph % (Auto) [place] % (Auto) Eos % (Auto) Baso % (Auto) Neut # Lymph # [place] # Eos # Baso # PT 28.5 H D INR 2.7 H D APTT 45.8 H D D-Dimer, Quantitative Sodium Potassium Chloride Carbon Dioxide Anion Gap BUN Creatinine Est GFR ( Amer) Est GFR (Non-Af Amer) Random Glucose Calcium Phosphorus Magnesium Total Bilirubin AST ALT Alkaline Phosphatase Troponin I NT-Pro-B Natriuret Pep Total Protein Albumin Globulin Albumin/Globulin Ratio Triglycerides Cholesterol LDL Cholesterol Direct HDL Cholesterol TSH 3rd Generation 2.94 Digoxin Blood Type B POSITIVE Antibody Screen Negative BBK History Checked Patient has bt 11/10/16 11/10/16 04:00 05:30 WBC 8.1 RBC 3.59 L Hgb 11.8 L Hct 36.2 MCV 101.1 H MCH 32.9 H MCHC 32.6 L RDW 15.7 H Plt Count 148 MPV Neut % (Auto) Lymph % (Auto) [place] % (Auto) Eos % (Auto) Baso % (Auto) Neut # Lymph # [place] # Eos # Baso # PT INR APTT D-Dimer, Quantitative Sodium 140 Potassium 5.0 Chloride 104 Carbon Dioxide 26 Anion Gap 15 BUN 24 H Creatinine 1.5 Est GFR ( Amer) 54 Est GFR (Non-Af Amer) 45 Random Glucose 86 Calcium 9.2 Phosphorus 2.8 Magnesium 1.7 Total Bilirubin AST ALT Alkaline Phosphatase Troponin I NT-Pro-B Natriuret Pep Total Protein Albumin Globulin Albumin/Globulin Ratio Triglycerides 46 Cholesterol 79 LDL Cholesterol Direct 37 HDL Cholesterol 25 L TSH 3rd Generation Digoxin Blood Type Antibody Screen BBK History Checked
[2016-11-10] MEDS ORDERED: Lidocaine 1% Inj (20ml) ONE ×2 (16:10→17:27)
[2016-11-10] MEDS ORDERED: Liquid Adhesive TOP ONE (16:10)
[2016-11-10] MEDS ORDERED: Vancomycin 1 g Inj ONE (16:10)
[2016-11-10] MEDS ORDERED: Midazolam 2 MG/2 ML VIAL ONE (16:35)
[2016-11-10] MEDS ORDERED: Sodium Chloride 0.9% 500 ML IV ONE (17:08)
[2016-11-10] MEDS ORDERED: Lidocaine 1% Inj (20ml) IJ ONE ×2 (17:34)
--- NOTE | 2016-11-10 17:37 | CARD ---
APPROVED REPORT EKG Measurement Heart [id number] <Conclusion> Junctional bradycardia Nonspecific ST and T wave abnormality Abnormal ECG
[2016-11-10] MEDS ORDERED: Benzoin Compund Tincture 30 ML TP ONE ×2 (18:02→18:04)
--- NOTE | 2016-11-10 18:47 | CARD ---
APPROVED REPORT EXAM: Two-dimensional and M-mode echocardiogram with Doppler and color Doppler. Other Information Quality : GoodRhythm : NSR INDICATION Dyspnea Chest Pain 2D DIMENSIONS IVSd0.98 (0.7-1.1cm)LVDd5.45 (3.9-5.9cm) LVOT Diameter2.21 (1.8-2.4cm)PWd1.24 (0.7-1.1cm) IVSs1.43 (0.8-1.2cm)LVDs3.88 (2.5-4.0cm) FS (%) 28.8 %PWs1.11 (0.8-1.2cm) M-Mode DIMENSIONS Left Atrium (MM)4.67 (2.5-4.0cm)IVSd1.59 (0.7-1.1cm) Aortic Root3.60 (2.2-3.7cm)LVDd5.46 (4.0-5.6cm) Aortic Cusp Exc.1.56 (1.5-2.0cm)PWd1.03 (0.7-1.1cm) IVSs2.05 cmFS (%) 30 % LVDs3.84 (2.0-3.8cm)PWs1.62 cm Aortic Valve AoV Peak Fnvjcndw893.7cm/sAoV VTI57.2cmAO Peak GR.24mmHg LVOT Peak Mwqluouc565.7cm/sLVOT VTI23.01cmAO Mean GR.12mmHg TAMMY (VMAX)0.19wh5QNZ (VTI)0.75cm2 Mitral Valve E/A ratio0.0 TDI E/Lateral E'0.0E/Medial E'0.0 Pulmonary Valve PV Peak Ijjlpuwi972.9cm/s Tricuspid Valve TR Peak Vievbxpo927as/sRAP YRELISZC40xtKuVU Peak Gr.33mmHg [id number] LEFT VENTRICLE The left ventricle is normal in size. There is normal left ventricular wall thickness. The left ventricular function is normal. The left ventricular ejection fraction is - 55%. There is normal LV segmental wall motion. The patient is in atrial fibrillation. No left ventricle thrombus noted on this study. There is no ventricular septal defect visualized. There is no left ventricular aneurysm. There is no mass noted in the left ventricle. RIGHT VENTRICLE The right ventricle is normal size. There is normal right ventricular wall thickness. The right ventricular systolic function is normal. A pacemaker lead was seen in the RV and RA. ATRIA The left atrium is mildly dilated. There is no thrombus suspected in the left atrium. The right atrium is moderately dilated. The interatrial septum is intact with no evidence for an atrial septal defect. AORTIC VALVE The aortic valve is - moderately calcified. There is trace aortic regurgitation. There is moderate valvular aortic stenosis. Calculated aortic valve area is 1.92 cm2 with maximum pressure gradient of 23 mmHg and mean pressure gradient of 12 mmHg. MITRAL VALVE The mitral valve leaflets are mildly thickened. There is no evidence of mitral valve prolapse. There is no mitral valve stenosis. Mitral regurgitation is mild. TRICUSPID VALVE The tricuspid valve is normal in structure and function. There is moderate to severe tricuspid regurgitation. Right ventricular systolic pressure is estimated at 43 mmHg. There is no tricuspid valve prolapse or vegetation. There is no tricuspid valve stenosis. PULMONIC VALVE The pulmonic valve is not well visualized. There is trace pulmonic valvular regurgitation. GREAT VESSELS The aortic root is normal in size. The IVC was not well visualized. PERICARDIAL EFFUSION The pericardium appears normal. There is no pleural effusion. <Conclusion> The study is only of fair quality. The left ventricle is normal in size and wall thickness. The left ventricular function is normal. The left ventricular ejection fraction is - 55%. The left atrium is mildly dilated and right atrium is moderately dilated. There is moderate aortic stenosis and trace aortic regurgitation.. There is mild mitral regurgitation and moderate to severe tricuspid regurgitation.
[2016-11-10] MEDS: SILVASORB ANTIMICROBIAL WOUND GEL TP SCH (18:58)
[2016-11-10 21:20] VITALS: BMI 33.4
--- NOTE | 2016-11-11 00:27 | PN ---
LOCATION: The patient in ICU, bed #433. TIME SPENT: 35 minutes. SUBJECTIVE: The patient is seen and evaluated at the bedside. Past medical, surgical, and social history are noted. Case discussed with overnight hospitalist and also in ICU rounds. 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 No abdominal pain. The patient was noted to be in junctional escape rhythm, seen by cardiology consult, recommended to replace permanent pacemaker. PHYSICAL EXAMINATION: GENERAL: Currently alert and awake, follows commands appropriate. No discharge noted. VITAL SIGNS: Temperature 97.7, heart rate 31, blood pressure 158/55, mean arterial pressure 87, respiratory rate 18, and saturating 100%, oxygen 2 L nasal cannula. Intake 800 mL and output not documented. Weight 200 pounds. HEAD, EYES, EARS, NOSE, AND THROAT: Pupils are reactive. Conjunctivae are pink. Sclerae white. NECK: Supple. CHEST: Bilateral breath sounds. Clear to auscultation. HEART: Rhythm regular. S1 and S2 normal in intensity. No S3, S4 or gallop. No audible murmur. ABDOMEN: Bowel sounds present, soft. Liver and spleen not palpable. Bladder not distended. EXTREMITIES: Ulceration at the right leg. Dressing intact. Brown coloration at both ankles. LABORATORY DATA: WBC 8.1, hemoglobin 11.8, hematocrit 36.2, platelet count 148. PT 26.1. INR 2.5. SMA-7: Sodium 140, potassium 5, chloride 104, CO2 of 26, blood urea nitrogen 24, creatinine 1.5, random glucose 86, calcium 9.2, phosphorous 2.8, magnesium 1.7. Triglycerides 46, cholesterol 79, LDL 37, HDL 25. TSH 2.94. Digoxin 1.4. CURRENT MEDICATIONS: Augmentin 875 mg one tablet q. 12, B12 of 1000 mcg daily, Synthroid 175 mcg daily. Microbiology: Wound culture report is pending. Blood culture, no growth. Chest CT: Mild pulmonary vascular congestion, bibasilar small atelectasis. Intensity seen in the chest x-ray at the right mid lung corresponding to pleural effusion at the right minor fissure. Echocardiogram report is pending. Chest x-ray: Pulmonary vascular congestion with pleural effusion, cardiomegaly. X-ray of tibia and fibula: No evidence of osteomyelitis. X-ray ankle: No evidence of osteomyelitis. IMPRESSION: Admitted with shortness of breath, bradycardia, status post permanent pacemaker for sick sinus syndrome, malfunctioning pacemaker, seen by cardiology to replace permanent pacemaker. Hold digoxin. Coagulopathy secondary to Coumadin, correct coagulopathy in preparation for permanent pacemaker insertion. Ulceration of the right foot on Augmentin, follow by podiatry consult. Neuro, stable. Pulmonary, mild vascular congestion secondary to chronic heart failure. Congestive heart failure, stable. Continue deep venous thrombosis prophylaxis, anticoagulation on hold secondary to coagulopathy. Henrry Baires MD
[2016-11-11] MEDS: Levothyroxine 175 MCG TAB PO SCH (05:43)
--- NOTE | 2016-11-11 06:43 | CP.PCM.PN ---
Subjective - Date & Time of Evaluation Date of Evaluation: 11/11/16 Time of Evaluation: 06:41 - Subjective Subjective: 81 y/o male seen at bedside in ICU for right lower leg ulceration. Patient appears in NAD and is AAOx3. Patient states that he went for a battery change procedure for his pacemaker yesterday. Patient states that he is feeling a lot better today and is breathing a lot better than yesterday. Patient denies of any acute overnight events. Patient denies of any pain on his right leg today. Patient denies of any F/N/V/C/SOB/CP today. Denies of any other pedal complains. Objective - Vital Signs/Intake and Output Vital Signs (last 24 hours): Temp Pulse Resp BP Pulse Ox 98.7 F 60 21 135/63 100 11/11/16 04:00 11/11/16 06:00 11/11/16 06:00 11/11/16 06:00 11/11/16 06:00 Intake and Output: 11/10/16 11/11/16 18:59 06:59 Intake Total 500 Output Total 1100 Balance -600 - Medications Medications: Current Medications Amoxicillin/Clavulanate Potassium (Augmentin 875 Mg-125 Mg Tab) 1 tab PO Q12 [facility] Last Admin: 11/10/16 21:25 Dose: 1 tab Cyanocobalamin (Vitamin B12 1000 Mcg Tab) 1,000 mcg PO DAILY [facility] Last Admin: 11/10/16 10:15 Dose: Not Given Levothyroxine Sodium (Synthroid) 175 mcg PO DAILY@0630 [facility] Last Admin: 11/11/16 05:43 Dose: 175 mcg - Labs Labs: 11/10/16 05:30 11/10/16 04:00 PT 26.1 Seconds (9.8-13.1) H 11/10/16 12:00 INR 2.5 (0.9-1.2) H 11/10/16 12:00 APTT 45.8 Seconds (25.6-37.1) H D 11/10/16 04:00 - Constitutional Appears: Well, Non-toxic, No Acute Distress - Extremities Exam Additional comments: Vasc: DP and PT non-palpable, CFT <4 seconds to the digits, temperature gradient cool to cool from proximal to distal, edema noted to the LE bilaterally Derm: ulceration on the lateral aspect of lower 1/3 of the right leg measuring 3.0 x 2.5 x .2. Wound base is 70% fibrotic and 30% granular. minimal serous drainage noted, no malodor, no purulence noted, erythema extending to the anterior lateral leg. No probe to bone, no undermining, no tunneling noted, no suspicion of active infection Neuro: protective sensation slightly diminished Ortho: MM is 5/5 in all four compartments, tenderness noted to palpation surrounding ulceration site - Neurological Exam Neurological Exam: Alert, Awake, Oriented x3 - Psychiatric Exam Psychiatric exam: Normal Affect, Normal Mood Assessment and Plan - Assessment and Plan (Free Text) Assessment: 81 year old male with right lower leg ulceration likely due to 2/2 venous stasis Plan: Patient seen and evaluated bedside Patient discussed in details with attending Dr. Davenport Charts, labs, vitals reviewed (afebrile, WBC @ 8.1 (11/10)) X-ray reviewed- no fracture or destructive lesion noted; no OM or acute pathology Ulceration cleansed, dressed with silvasorb, DSD and MAHI Santyl ordered Wound culture pending results Patient is currently on PO Augmentin Patient is stable from podiatry standpoint Podiatry to follow patient while in-house Patient will follow up with Dr. Davenport in wound care on weekly basis upon discharge
--- NOTE | 2016-11-11 08:42 | OP ---
INPATIENT OPERATIVE REPORT PROCEDURE DATE: PROCEDURE: Single-chamber permanent pacemaker generator change. SECONDARY PROCEDURE: Capsulectomy. PRE-PROCEDURE DIAGNOSES: Sick sinus syndrome, atrial fibrillation, and profound bradycardia. BRIEF HISTORY: Mr. Nabeel Moody is an 81-year-old male with past medical history significant for atrial fibrillation status post single lead Medtronic permanent pacemaker in 2006, hypothyroidism, hypertension who was admitted with dizziness, weakness, shortness of breath, intermittent chest pain, found to have severe bradycardia. The patient has not had his device checked in over 10 years. On interrogation of his device here, device could not be interrogated secondary to no battery life. After discussing the case with the patient's grad daughter and the patient's managing top hat body maker Dr. Galdino Rob was felt the patient would benefit from a permanent pacemaker generator change. Of note, the patient's INR had been 5.1 and he received vitamin K as well as FFP. The patient received additional FFP after a reading today of 2.5. It was felt that the patient should undergo permanent pacemaker generator change with a profound low heart rate of 33 beats per minute. Informed consent was received for the procedure from the patient himself. Grand daughter is at the bedside. The patient was also underwent anesthesia by the staff anesthesiologist. The left area was prepped and draped in the sterile fashion. A 2% lidocaine solution was injected on top of the existing device, the entire system was interrogated under fluoroscopy, there was normal positioned right ventricular lead. Using a 12-blade, a 3.5 cm incision was then made without difficulty. The existing device was exteriorized. This is the Medtronic Adapta, serial #[id number]. The lead and device system were then taken out of the pocket, the lead was then removed from the device and was interrogated using the program system analyzer. The right ventricular lead is a serial #[id number] lead had normal function with threshold through the program system analyzer as well as through the device at 1.3 volts per 0.5 milliseconds impedance on this lead was 511, always measured 13.5. The lead was then connected to the new pulse generator, which is a Medtronic Sensia serial #[id number]. The lead system and device were then coiled and placed in the pocket, a retention suture was then applied, additional cauterization needed to be done at the skin and fascia layers, 2 layers of 2-0 Vicryl brought the superficial fashion and skin layers together, Mastisol and Steri-Strips were then applied without difficulty. A pressure dressing was then applied. The patient remained hemodynamically stable throughout the procedure was taken out of the room again in stable condition. PLAN: The patient should be monitored in terms of bleeding, anticoagulation can be formally reinitiated in a period of 24 hours. The patient should follow up with Dr. Galdino Rob for the totality of his cardiac care. Final programming device is set VVIR . Jamie Werner MD
[2016-11-11] MEDS: Santyl Collagenase OINTMENT TOP SCH (08:46)
[2016-11-11] MEDS: Amoxicillin-Clav 875-125 mg Tab PO SCH ×2 (08:46→21:00)
[2016-11-11 10:11] LABS: MEAN CORPUSCULAR HEMOGLOBIN 33.6 pg (27.0-31.0); MEAN CORPUSCULAR HGB CONC 33.6 g/dL (33.0-37.0); RED CELL DISTRIBUTION WIDTH 15.2 % (11.5-14.5); WHITE BLOOD COUNT 8.8 K/uL (4.8-10.8)
[2016-11-11 10:22] LABS: BLOOD UREA NITROGEN 22 mg/dl (9-20); CALCIUM 9.2 mg/dL (8.4-10.2); CARBON DIOXIDE 28 mmol/L (22-30); CHLORIDE 102 mmol/L (98-107); GFR AFRICAN-AMERICAN > 60; GLUCOSE,RANDOM 105 mg/dL (75-110); POTASSIUM 4.8 MMOL/L (3.6-5.0); SODIUM 142 mmol/l (132-148)
--- NOTE | 2016-11-11 10:34 | PQF GENQUE ---
Dr. Dueñas, Please specify the type of heart failure in your progress notes:if in agreement with the diagnosis and if known TYPE: Combined systolic and diastolic Diastolic Systolic Other (please specify) OR: Disagree OR:Clinically unable to determine OR: Unknown H and P: This is an 81 y/o male with hx of atrial fibrillation on pacemaker, hypothyroidism and HTN on maintenance meds was admitted bradycardia and CHF, He has been compliant with meds and claims that for the past 2 weeks he has not been feeling well. 11/09: Face Painter: Chronic CHF - ECHO - No lasix at present because Patient is Stable in bed and is dehydrated at present Pro BNP: 6740 CXR report: : vascular congestion pleural effusion and cardiomegaly suggestive of worsening CHF. -11/10 Echo report; The study is only of fair quality. The left ventricle is normal in size and wall thickness. The left ventricular function is normal. The left ventricular ejection fraction is - 55%. left atrium is mildly dilated and right atrium is moderately dilated. There is moderate aortic stenosis and trace aortic regurgitation.. There is mild mitral regurgitation and moderate to severe tricuspid regurgitation. This form is a permanent part of the medical record Clarification of your documentation is requested to better reflect the severity of illness and intensity of treatment of your patient. Indicators present [] Specify: [] [] Specify: [] [] Specify: [] [] Specify: [] Location in the medical record that reflects the above clinical findings: [] Treatment Provided: [] PHYSICIAN'S RESPONSE Based on your medical judgment of the clinical indicators outlined above please clarify the following: [] Practitioner response [] If unable to determine, please check the box, sign and date. Present On Admission (POA) Indicator: [] Present at the time of admission [] Not present at the time of admission [] Clinically Undetermined In responding to this query, please exercise your independent professional judgment. The fact that a question is asked does not imply that any particular answer is desired or expected. Thank you for your clarification on this documentation. If you have any questions please call. * Thank you, Jolene Mei RN ext.[phone]:Estephanie BARBA
--- NOTE | 2016-11-11 11:37 | RAD ---
PROCEDURE: INTRAOPERATIVE FLUOROSCOPY 11/10/2016 HISTORY: PACEMAKER COMPARISON: CHEST RADIOGRAPH 11/09/2016. TECHNIQUE: Intra under fluoroscopy was provided to the referring physician to assist in cardiac pacemaker placement. FINDINGS: An apparent unipolar permanent cardiac pacemaker is been deployed with the generator the left pectoralis region and solitary lead entering via the left subclavian region terminating in the region of the heart. Please see op report further detail. IMPRESSION: Please see operative report for further detail. 16.0 seconds percent was utilized.
--- NOTE | 2016-11-11 14:07 | CP.PCM.PCO ---
Assessment & Plan - Assessment and Plan (Free Text) Assessment: pt. s/p PPM Generator change by , POD #1 Doing well, denies sob, cp, dizziness, palpitations L PPM site dressing changed Steri strips clean, dry , intact, no evidence of bleeding, redness or swelling noted pt. may resume coumadin Above discussed with
--- NOTE | 2016-11-11 17:03 | PN ---
DATE: 11/11/2016 LOCATION: The patient in ICU bed 433. TIME SPENT: 35 minutes. SUBJECTIVE: The patient is seen and examined at the bedside. Past medical, surgical, and social history noted. Case discussed in a.m. ICU rounds. Overnight, seen by Electrophysiology consult, Dr. Jamie Werner. The patient underwent pacemaker interrogation, noted to have failed pacemaker generator. This was replaced under local anesthesia with a VVIR. The patient's procedure was uneventful. Findings during the procedure are noted, status post pacemaker insertion, heart rate increased, remained in the 69-111, blood pressure 100-135/54-63, respiratory rate 20. Telemetry sinus rhythm. PHYSICAL EXAMINATION HEAD, EYES, EARS, NOSE AND THROAT: Pupils are reactive. Conjunctivae are pink. Sclerae white. NECK: Supple. Trachea is central. Site of permanent pacemaker insertion without soaking. CHEST: Bilateral breath sounds. Clear to auscultation. HEART: Rhythm regular. S1 and S2 normal. ABDOMEN: Bowel sounds present, soft. EXTREMITIES: Unremarkable. NEUROLOGIC EXAMINATION: Nonfocal. CURRENT MEDICATIONS: Levothyroxine 175 mcg daily, vitamin B12 1000 mcg daily, Santyl 1 application topical daily, amoxicillin clavulanate 875 mg q.12 hours. LABORATORY DATA: WBC 8.8, hemoglobin 12.4, hematocrit 37, platelet count of 164. PT 17.7, INR 1.7. SMA 7: Sodium 142, potassium 4.8, chloride 102, CO2 of 28, blood urea nitrogen 22, creatinine 1.3, random glucose 105, calcium 9.2, cholesterol 79, LDL 37, HDL 25, TSH 2.94, digoxin level 1.4. MICROBIOLOGY: Wound culture, no growth. Blood culture, no growth. IMPRESSION: 1. Admitted with shortness of breath, most on exertion, and generalized weakness. Failed pacemaker generator, replaced under local anesthesia, currently on VVIR pacing and capturing well. Remains hemodynamically stable. 2. Hypothyroidism, on levothyroxine supplement. 3. History of sick sinus syndrome. Used to be on Coumadin. Can initiate from a.m. tomorrow. Currently, INR is 1.7. The patient may be transferred to telemetry floor. Start Coumadin in the morning. Monitor for bradycardia and hypertension. Henrry Baires MD [facility] # [id number]
--- NOTE | 2016-11-11 19:56 | CP.PCM.PN ---
Subjective - Date & Time of Evaluation Date of Evaluation: 11/11/16 Time of Evaluation: 19:45 - Subjective Subjective: patient has no current chest pain. s/p PPM Objective - Vital Signs/Intake and Output Vital Signs (last 24 hours): Temp Pulse Resp BP Pulse Ox 97.7 F 60 20 148/78 98 11/11/16 16:36 11/11/16 16:36 11/11/16 16:36 11/11/16 16:36 11/11/16 16:36 - Medications Medications: Current Medications Amoxicillin/Clavulanate Potassium (Augmentin 875 Mg-125 Mg Tab) 1 tab PO Q12 [facility] Last Admin: 11/11/16 08:46 Dose: 1 tab Collagenase (Santyl) 1 applic TOP DAILY [facility] Last Admin: 11/11/16 08:46 Dose: 1 applic Cyanocobalamin (Vitamin B12 1000 Mcg Tab) 1,000 mcg PO DAILY [facility] Last Admin: 11/11/16 08:47 Dose: 1,000 mcg Levothyroxine Sodium (Synthroid) 175 mcg PO DAILY@0630 [facility] Last Admin: 11/11/16 05:43 Dose: 175 mcg Warfarin Sodium (Coumadin) 2 mg PO QOTHERDAY [facility] PRN Reason: Protocol - Labs Labs: 11/11/16 09:45 11/11/16 09:45 PT 17.7 Seconds (9.8-13.1) H D 11/11/16 09:45 INR 1.7 (0.9-1.2) H D 11/11/16 09:45 APTT 45.8 Seconds (25.6-37.1) H D 11/10/16 04:00 - Constitutional Appears: Non-toxic - Head Exam Head Exam: NORMAL INSPECTION - Eye Exam Eye Exam: Normal appearance - ENT Exam ENT Exam: Mucous Membranes Moist - Neck Exam Neck Exam: Full ROM - Respiratory Exam Respiratory Exam: Decreased Breath Sounds, NORMAL BREATHING PATTERN - Cardiovascular Exam Cardiovascular Exam: REGULAR RHYTHM - GI/Abdominal Exam GI & Abdominal Exam: Normal Bowel Sounds - Rectal Exam Rectal Exam: Deferred - Extremities Exam Extremities Exam: absent: Pedal Edema - Back Exam Back Exam: NORMAL INSPECTION - Neurological Exam Neurological Exam: Alert - Psychiatric Exam Psychiatric exam: Normal Affect - Skin Skin Exam: Normal Color Assessment and Plan (1) Chronic a-fib Assessment & Plan: restart counmadin Status: Acute (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
[2016-11-12 00:36] LABS: RBC URINE 402 /hpf (0-3); URINE BACTERIA RARE (<OCC); URINE BILIRUBIN NEGATIVE (NEGATIVE); URINE BLOOD LARGE (NEGATIVE); URINE COLOR YELLOW (YELLOW); URINE GLUCOSE (UA) NEG (Normal); URINE KETONE NEGATIVE (NEGATIVE); URINE LEUKOCYTE ESTERASE TRACE Leu/uL (Negative); URINE PROTEIN NEGATIVE (NEGATIVE); WBC URINE 14 /hpf (0-5)
[2016-11-12] MEDS: Levothyroxine 175 MCG TAB PO SCH (06:37)
--- NOTE | 2016-11-12 08:19 | CP.PCM.PN ---
Subjective - Date & Time of Evaluation Date of Evaluation: 11/12/16 Time of Evaluation: 08:16 - Subjective Subjective: Podiatry progress note for Dr. Davenport 81 y/o male seen at bedside for right lower leg ulceration. Patient appears in NAD and is AAOx3. Patient states that he is feeling a lot better today and is breathing a lot better than when he came in through ED. Patient denies of any acute overnight events. Patient denies of any pain on his right leg today. Patient denies of any F/N/V/C/SOB/CP today. Denies of any other pedal complains. Objective - Vital Signs/Intake and Output Vital Signs (last 24 hours): Temp Pulse Resp BP Pulse Ox 98 F 60 19 152/85 H 96 11/12/16 00:45 11/12/16 00:45 11/12/16 00:45 11/12/16 00:45 11/12/16 00:45 - Medications Medications: Current Medications Amoxicillin/Clavulanate Potassium (Augmentin 875 Mg-125 Mg Tab) 1 tab PO Q12 [facility] Last Admin: 11/11/16 21:00 Dose: 1 tab Collagenase (Santyl) 1 applic TOP DAILY [facility] Last Admin: 11/11/16 08:46 Dose: 1 applic Cyanocobalamin (Vitamin B12 1000 Mcg Tab) 1,000 mcg PO DAILY [facility] Last Admin: 11/11/16 08:47 Dose: 1,000 mcg Levothyroxine Sodium (Synthroid) 175 mcg PO DAILY@0630 [facility] Last Admin: 11/12/16 06:37 Dose: 175 mcg Warfarin Sodium (Coumadin) 2 mg PO QOTHERDAY [facility] PRN Reason: Protocol - Labs Labs: 11/11/16 09:45 11/11/16 09:45 PT 15.8 Seconds (9.8-13.1) H 11/12/16 07:15 INR 1.5 (0.9-1.2) H 11/12/16 07:15 APTT 45.8 Seconds (25.6-37.1) H D 11/10/16 04:00 - Constitutional Appears: Well, Non-toxic, No Acute Distress - Extremities Exam Additional comments: Vasc: DP and PT non-palpable, CFT <4 seconds to the digits, temperature gradient cool to cool from proximal to distal, edema noted to the LE bilaterally Derm: ulceration on the lateral aspect of lower 1/3 of the right leg measuring 3.0 x 2.5 x .2. Wound base is 70% fibrotic and 30% granular. minimal serous drainage noted, no malodor, no purulence noted, erythema extending to the anterior lateral leg. No probe to bone, no undermining, no tunneling noted, no suspicion of active infection Neuro: protective sensation slightly diminished Ortho: MM is 5/5 in all four compartments, tenderness noted to palpation surrounding ulceration site - Neurological Exam Neurological Exam: Alert, Awake, Oriented x3 - Psychiatric Exam Psychiatric exam: Normal Affect, Normal Mood Assessment and Plan - Assessment and Plan (Free Text) Assessment: 81 year old male with right lower leg ulceration likely due to 2/2 venous stasis Plan: Patient seen and evaluated bedside Patient discussed in details with attending Dr. Davenport Charts, labs, vitals reviewed (afebrile, WBC @ 8.8 (11/11)) X-ray reviewed- no fracture or destructive lesion noted; no OM or acute pathology Ulceration cleansed, dressed with Santyl, DSD and MAHI Wound culture (Prelim): Gram negative rods, Gram positive cocci Patient is currently on PO Augmentin Patient is stable from podiatry standpoint Podiatry to follow patient while in-house Patient will follow up with Dr. Davenport in wound care on weekly basis upon discharge
[2016-11-12] MEDS: Amoxicillin-Clav 875-125 mg Tab PO SCH (09:32)
[2016-11-12] MEDS: SILVASORB ANTIMICROBIAL WOUND GEL TP SCH (09:35)
[2016-11-12] MEDS: Santyl Collagenase OINTMENT TOP SCH (09:35)
--- NOTE | 2016-11-12 11:12 | CARD ---
APPROVED REPORT EKG Measurement Heart [id number] <Conclusion> Ventricular-paced rhythm Abnormal ECG
--- NOTE | 2016-11-12 11:33 | CP.PCM.PN ---
Subjective - Date & Time of Evaluation Date of Evaluation: 11/12/16 Time of Evaluation: 11:30 - Subjective Subjective: pt seen and evaluated with attending this morning. No acute events overnight. Afebrile. Stable WBC. Pt reports feeling well overall. No new complaints. Denies CP/SOB/Palpiations, N/V/D/C. Objective - Vital Signs/Intake and Output Vital Signs (last 24 hours): Temp Pulse Resp BP Pulse Ox 97.9 F 65 20 133/85 96 11/12/16 08:40 11/12/16 08:40 11/12/16 08:40 11/12/16 08:40 11/12/16 08:40 - Medications Medications: Current Medications Amoxicillin/Clavulanate Potassium (Augmentin 875 Mg-125 Mg Tab) 1 tab PO Q12 [facility] Last Admin: 11/12/16 09:32 Dose: 1 tab Collagenase (Santyl) 1 applic TOP DAILY [facility] Last Admin: 11/12/16 09:35 Dose: Not Given Cyanocobalamin (Vitamin B12 1000 Mcg Tab) 1,000 mcg PO DAILY [facility] Last Admin: 11/12/16 09:36 Dose: 1,000 mcg Levothyroxine Sodium (Synthroid) 175 mcg PO DAILY@0630 [facility] Last Admin: 11/12/16 06:37 Dose: 175 mcg Warfarin Sodium (Coumadin) 2 mg PO DAILY@1700 [facility] PRN Reason: Protocol Warfarin Sodium (Coumadin) 5 mg PO QOTHERDAY [facility] PRN Reason: Protocol - Labs Labs: 11/11/16 09:45 11/11/16 09:45 PT 15.8 Seconds (9.8-13.1) H 11/12/16 07:15 INR 1.5 (0.9-1.2) H 11/12/16 07:15 APTT 45.8 Seconds (25.6-37.1) H D 11/10/16 04:00 - Constitutional Appears: Non-toxic, No Acute Distress - Head Exam Head Exam: ATRAUMATIC - Eye Exam Eye Exam: EOMI Pupil Exam: PERRL - ENT Exam ENT Exam: Mucous Membranes Moist - Neck Exam Neck Exam: Full ROM - Respiratory Exam Respiratory Exam: Clear to Ausculation Bilateral, NORMAL BREATHING PATTERN. absent: Rales, Rhonchi, Wheezes - Cardiovascular Exam Cardiovascular Exam: REGULAR RHYTHM, RRR, +S1, +S2. absent: Tachycardia, JVD, Rubs - GI/Abdominal Exam GI & Abdominal Exam: Soft, Normal Bowel Sounds. absent: Tenderness - Extremities Exam Extremities Exam: absent: Calf Tenderness - Neurological Exam Neurological Exam: Alert, Awake, CN II-XII Intact, Oriented x3 - Psychiatric Exam Psychiatric exam: Normal Affect, Normal Mood Assessment and Plan (1) Chronic a-fib Assessment & Plan: s/p PPM revision, sinus, as per cardiolgy, safe to resume coumadin will start at 2mg today, INR today 1.5, 5mg tomorrow as per pts usual regime f/u INR tomorrow Status: Acute (2) Shortness of breath Status: Resolved (3) Ulcer of ankle Assessment & Plan: seen by podiatry, wound cleaned wound cx positive for klebsiella and MRSA ID Consult appreciated Status: Acute
[2016-11-12 13:12] LABS: BLOOD UREA NITROGEN 20 mg/dl (9-20); CALCIUM 9.3 mg/dL (8.4-10.2); CARBON DIOXIDE 26 mmol/L (22-30); CHLORIDE 101 mmol/L (98-107); GFR AFRICAN-AMERICAN > 60; GLUCOSE,RANDOM 96 mg/dL (75-110); POTASSIUM 4.7 MMOL/L (3.6-5.0); SODIUM 141 mmol/l (132-148)
[2016-11-12 13:24] LABS: HEMATOCRIT 37.4 % (35.0-51.0); MEAN CORPUSCULAR HEMOGLOBIN 33.6 pg (27.0-31.0); MEAN CORPUSCULAR HGB CONC 33.6 g/dL (33.0-37.0); RED CELL DISTRIBUTION WIDTH 14.9 % (11.5-14.5); WHITE BLOOD COUNT 8.4 K/uL (4.8-10.8)
[2016-11-12] MEDS: Piperacillin/Tazobact 3.375 GM in Sodium Chloride 0.9% 100 ML IVPB SCH ×2 (14:47→17:13)
--- NOTE | 2016-11-12 17:00 | CP.PCM.PN ---
Subjective - Date & Time of Evaluation Date of Evaluation: 11/12/16 Time of Evaluation: 16:57 - Subjective Subjective: I D NOTE Patient examined, chart reviewed. Culture reviewed, have added Maxipeme to treatment. Will likely DC Zosyn tomorrow. Vancomycin trough ordered for tomorrow. BMP also ordered for tomorrow. Formal consult dictated. Objective - Vital Signs/Intake and Output Vital Signs (last 24 hours): Temp Pulse Resp BP Pulse Ox 97.9 F 65 20 133/85 96 11/12/16 08:40 11/12/16 08:40 11/12/16 08:40 11/12/16 08:40 11/12/16 08:40 - Medications Medications: Current Medications Collagenase (Santyl) 1 applic TOP DAILY [facility] Last Admin: 11/12/16 09:35 Dose: Not Given Cyanocobalamin (Vitamin B12 1000 Mcg Tab) 1,000 mcg PO DAILY [facility] Last Admin: 11/12/16 09:36 Dose: 1,000 mcg Vancomycin HCl 1 gm/ Sodium (Chloride) 250 mls @ 166.667 mls/hr IVPB Q12 [facility] Last Admin: 11/12/16 14:48 Dose: 166.667 mls/hr Piperacillin Sod/Tazobactam (Sod 3.375 gm/ Sodium Chloride) 100 mls @ 100 mls/ hr IVPB Q8 [facility] Last Admin: 11/12/16 14:47 Dose: 100 mls/hr Cefepime HCl 1 gm/ Sodium (Chloride) 100 mls @ 100 mls/hr IVPB Q12 [facility] Levothyroxine Sodium (Synthroid) 175 mcg PO DAILY@0630 [facility] Last Admin: 11/12/16 06:37 Dose: 175 mcg Warfarin Sodium (Coumadin) 2 mg PO DAILY@1700 [facility] PRN Reason: Protocol Warfarin Sodium (Coumadin) 5 mg PO QOTHERDAY [facility] PRN Reason: Protocol - Labs Labs: 11/12/16 12:59 11/12/16 12:59 PT 15.8 Seconds (9.8-13.1) H 11/12/16 07:15 INR 1.5 (0.9-1.2) H 11/12/16 07:15 APTT 45.8 Seconds (25.6-37.1) H D 11/10/16 04:00
--- NOTE | 2016-11-12 18:44 | CP.PCM.PN ---
Subjective - Date & Time of Evaluation Date of Evaluation: 11/12/16 Time of Evaluation: 18:35 - Subjective Subjective: patient feels well. He denies dyspnea. Objective - Vital Signs/Intake and Output Vital Signs (last 24 hours): Temp Pulse Resp BP Pulse Ox 98.4 F 58 L 20 145/91 H 96 11/12/16 17:01 11/12/16 17:01 11/12/16 17:01 11/12/16 17:01 11/12/16 17:01 - Medications Medications: Current Medications Collagenase (Santyl) 1 applic TOP DAILY [facility] Last Admin: 11/12/16 09:35 Dose: Not Given Cyanocobalamin (Vitamin B12 1000 Mcg Tab) 1,000 mcg PO DAILY [facility] Last Admin: 11/12/16 09:36 Dose: 1,000 mcg Vancomycin HCl 1 gm/ Sodium (Chloride) 250 mls @ 166.667 mls/hr IVPB Q12 [facility] Last Admin: 11/12/16 14:48 Dose: 166.667 mls/hr Piperacillin Sod/Tazobactam (Sod 3.375 gm/ Sodium Chloride) 100 mls @ 100 mls/ hr IVPB Q8 [facility] Last Admin: 11/12/16 17:13 Dose: Not Given Cefepime HCl 1 gm/ Sodium (Chloride) 100 mls @ 100 mls/hr IVPB Q12 [facility] Levothyroxine Sodium (Synthroid) 175 mcg PO DAILY@0630 [facility] Last Admin: 11/12/16 06:37 Dose: 175 mcg Warfarin Sodium (Coumadin) 2 mg PO DAILY@1700 [facility] PRN Reason: Protocol Last Admin: 11/12/16 17:12 Dose: 2 mg Warfarin Sodium (Coumadin) 5 mg PO QOTHERDAY [facility] PRN Reason: Protocol - Labs Labs: 11/12/16 12:59 11/12/16 12:59 PT 15.8 Seconds (9.8-13.1) H 11/12/16 07:15 INR 1.5 (0.9-1.2) H 11/12/16 07:15 APTT 45.8 Seconds (25.6-37.1) H D 11/10/16 04:00 - Constitutional Appears: Non-toxic - Head Exam Head Exam: NORMAL INSPECTION - Eye Exam Eye Exam: Normal appearance - ENT Exam ENT Exam: Mucous Membranes Moist - Neck Exam Neck Exam: Full ROM - Respiratory Exam Respiratory Exam: NORMAL BREATHING PATTERN - Cardiovascular Exam Cardiovascular Exam: REGULAR RHYTHM - GI/Abdominal Exam GI & Abdominal Exam: Normal Bowel Sounds - Rectal Exam Rectal Exam: Deferred - Extremities Exam Extremities Exam: Pedal Edema - Back Exam Back Exam: NORMAL INSPECTION - Neurological Exam Neurological Exam: Alert - Psychiatric Exam Psychiatric exam: Normal Affect - Skin Skin Exam: Normal Color Assessment and Plan (1) Chronic a-fib Assessment & Plan: maintain current management. goal INR 2 to 3. Status: Acute (2) Junctional escape rhythm Assessment & Plan: s/p PPM. continue current management. Status: Acute
[2016-11-12] MEDS: Cefepime 1 GM in Sodium Chloride 0.9% 100 ML IVPB SCH (20:45)
[2016-11-13] MEDS: Piperacillin/Tazobact 3.375 GM in Sodium Chloride 0.9% 100 ML IVPB SCH ×2 (00:23→08:43)
[2016-11-13] MEDS: Levothyroxine 175 MCG TAB PO SCH (05:54)
[2016-11-13 07:47] LABS: BLOOD UREA NITROGEN 18 mg/dl (9-20); CALCIUM 8.8 mg/dL (8.4-10.2); CARBON DIOXIDE 26 mmol/L (22-30); CHLORIDE 103 mmol/L (98-107); GFR AFRICAN-AMERICAN > 60; GLUCOSE,RANDOM 87 mg/dL (75-110); POTASSIUM 4.2 MMOL/L (3.6-5.0); SODIUM 141 mmol/l (132-148)
--- NOTE | 2016-11-13 07:49 | CP.PCM.PN ---
Subjective - Date & Time of Evaluation Date of Evaluation: 11/13/16 Time of Evaluation: 07:48 - Subjective Subjective: Podiatry progress note for Dr. Davenport 81 y/o male seen at bedside for right lower leg ulceration. Patient appears in NAD and is AAOx3. Patient denies of any acute overnight events. Patient denies of any pain on his right leg today. Patient states that he was seen by ID doctor yesterday. Patient denies of any F/N/V/C/SOB/CP today. Patient states that he has a callus on the bottom of his foot which seems to be hurting him. Patient denies of any other pedal complains at this time. Objective - Vital Signs/Intake and Output Vital Signs (last 24 hours): Temp Pulse Resp BP Pulse Ox 98.6 F 61 19 146/82 95 11/13/16 00:27 11/13/16 00:27 11/13/16 00:27 11/13/16 00:27 11/13/16 00:27 - Medications Medications: Current Medications Collagenase (Santyl) 1 applic TOP DAILY [facility] Last Admin: 11/12/16 09:35 Dose: Not Given Cyanocobalamin (Vitamin B12 1000 Mcg Tab) 1,000 mcg PO DAILY [facility] Last Admin: 11/12/16 09:36 Dose: 1,000 mcg Vancomycin HCl 1 gm/ Sodium (Chloride) 250 mls @ 166.667 mls/hr IVPB Q12 [facility] Last Admin: 11/12/16 21:54 Dose: 166.667 mls/hr Piperacillin Sod/Tazobactam (Sod 3.375 gm/ Sodium Chloride) 100 mls @ 100 mls/ hr IVPB Q8 [facility] Last Admin: 11/13/16 00:23 Dose: 100 mls/hr Cefepime HCl 1 gm/ Sodium (Chloride) 100 mls @ 100 mls/hr IVPB Q12 [facility] Last Admin: 11/12/16 20:45 Dose: 100 mls/hr Levothyroxine Sodium (Synthroid) 175 mcg PO DAILY@0630 [facility] Last Admin: 11/13/16 05:54 Dose: 175 mcg Warfarin Sodium (Coumadin) 2 mg PO DAILY@1700 [facility] PRN Reason: Protocol Last Admin: 11/12/16 17:12 Dose: 2 mg Warfarin Sodium (Coumadin) 5 mg PO QOTHERDAY [facility] PRN Reason: Protocol - Labs Labs: 11/12/16 12:59 11/12/16 12:59 PT 15.8 Seconds (9.8-13.1) H 11/12/16 07:15 INR 1.5 (0.9-1.2) H 11/12/16 07:15 APTT 45.8 Seconds (25.6-37.1) H D 11/10/16 04:00 - Constitutional Appears: Well, Non-toxic, No Acute Distress - Extremities Exam Additional comments: Vasc: DP and PT non-palpable, CFT <4 seconds to the digits, temperature gradient cool to cool from proximal to distal, edema noted to the LE bilaterally Derm: ulceration on the lateral aspect of lower 1/3 of the right leg measuring 3.0 x 2.5 x .2. Wound base is 70% granular and 30% fibrotic. minimal serous drainage noted, no malodor, no purulence noted, erythema extending to the anterior lateral leg. No probe to bone, no undermining, no tunneling noted Neuro: protective sensation slightly diminished Ortho: MM is 5/5 in all four compartments, tenderness noted to palpation surrounding ulceration site - Neurological Exam Neurological Exam: Alert, Awake, Oriented x3 - Psychiatric Exam Psychiatric exam: Normal Affect, Normal Mood Assessment and Plan - Assessment and Plan (Free Text) Assessment: 81 year old male with right lower leg ulceration likely due to 2/2 venous stasis Plan: Patient seen and evaluated bedside Patient discussed in details with attending Dr. Davenport Charts, labs, vitals reviewed (afebrile, WBC @ 8.4 (11/12)) X-ray reviewed- no fracture or destructive lesion noted; no OM or acute pathology Ulceration cleansed, dressed with Santyl, DSD and MAHI Wound culture (Final): Klebsiella oxytoca, Pseudomonas Stutzeri, MRSA Patient to receive IV abx as per ID - Cefepime, zosyn, vancomycin Patient is stable from podiatry standpoint Podiatry to follow patient while in-house Patient will follow up with Dr. Davenport in wound care on weekly basis upon discharge
[2016-11-13] MEDS: Cefepime 1 GM in Sodium Chloride 0.9% 100 ML IVPB SCH ×2 (08:37→20:18)
[2016-11-13] MEDS: Santyl Collagenase OINTMENT TOP SCH (08:38)
[2016-11-13] MEDS: SILVASORB ANTIMICROBIAL WOUND GEL TP SCH (08:38)
[2016-11-13] MEDS: Digoxin 125 mcg (0.125 mg) Tab PO SCH (16:12)
[2016-11-14] MEDS: Levothyroxine 175 MCG TAB PO SCH (05:57)
--- NOTE | 2016-11-14 06:19 | CP.PCM.PN ---
Subjective - Date & Time of Evaluation Date of Evaluation: 11/14/16 Time of Evaluation: 06:20 - Subjective Subjective: Podiatry progress note for Dr. Davenport 81 y/o male seen at bedside for right lower leg ulceration. Patient appears in NAD and is AAOx3. Patient denies of any acute overnight events. Patient denies of any pain on his right leg today. Patient denies of any F/N/V/C/SOB/CP today. Patient denies of any other pedal complains at this time. Objective - Vital Signs/Intake and Output Vital Signs (last 24 hours): Temp Pulse Resp BP Pulse Ox 97.6 F 61 19 146/80 96 11/14/16 00:00 11/14/16 00:00 11/14/16 00:00 11/14/16 00:00 11/14/16 00:00 - Medications Medications: Current Medications Collagenase (Santyl) 1 applic TOP DAILY [facility] Last Admin: 11/13/16 08:38 Dose: Not Given Cyanocobalamin (Vitamin B12 1000 Mcg Tab) 1,000 mcg PO DAILY [facility] Last Admin: 11/13/16 08:39 Dose: 1,000 mcg Digoxin (Lanoxin) 0.125 mg PO DAILY [facility] Last Admin: 11/13/16 16:12 Dose: 0.125 mg Vancomycin HCl 1 gm/ Sodium (Chloride) 250 mls @ 166.667 mls/hr IVPB Q12 [facility] Last Admin: 11/13/16 21:20 Dose: 166.667 mls/hr Cefepime HCl 1 gm/ Sodium (Chloride) 100 mls @ 100 mls/hr IVPB Q12 [facility] Last Admin: 11/13/16 20:18 Dose: 100 mls/hr Levothyroxine Sodium (Synthroid) 175 mcg PO DAILY@0630 [facility] Last Admin: 11/14/16 05:57 Dose: 175 mcg - Labs Labs: 11/12/16 12:59 11/13/16 06:40 PT 14.7 Seconds (9.8-13.1) H 11/13/16 06:40 INR 1.4 (0.9-1.2) H 11/13/16 06:40 APTT 45.8 Seconds (25.6-37.1) H D 11/10/16 04:00 - Constitutional Appears: Well, Non-toxic, No Acute Distress - Extremities Exam Additional comments: Vasc: DP and PT non-palpable, CFT <4 seconds to the digits, temperature gradient cool to cool from proximal to distal, edema noted to the LE bilaterally Derm: ulceration on the lateral aspect of lower 1/3 of the right leg measuring 3.0 x 2.5 x .2. Wound base is 85% granular and 15% fibrotic. minimal serous drainage noted, no malodor, no purulence noted, erythema extending to the anterior lateral leg. No probe to bone, no undermining, no tunneling noted Neuro: protective sensation slightly diminished Ortho: MM is 5/5 in all four compartments, tenderness noted to palpation surrounding ulceration site - Neurological Exam Neurological Exam: Alert, Awake, Oriented x3 - Psychiatric Exam Psychiatric exam: Normal Affect, Normal Mood Assessment and Plan - Assessment and Plan (Free Text) Assessment: 81 year old male with right lower leg ulceration likely due to 2/2 venous stasis Plan: Patient seen and evaluated bedside Patient discussed in details with attending Dr. Davenport Charts, labs, vitals reviewed (afebrile, WBC @ 8.4 (11/12)) X-ray reviewed- no fracture or destructive lesion noted; no OM or acute pathology Ulceration cleansed, dressed with Santyl, DSD and MAHI Wound culture (Final): Klebsiella oxytoca, Pseudomonas Stutzeri, MRSA Patient to receive IV abx as per ID - Cefepime, vancomycin Patient is stable from podiatry standpoint Podiatry to follow patient while in-house Patient will follow up with Dr. Davenport in wound care on weekly basis upon discharge
[2016-11-14 08:20] VITALS: BP 132/81; PULSE 66; RESP 20; TEMP 97.7; O2SAT 95
[2016-11-14] MEDS: Cefepime 1 GM in Sodium Chloride 0.9% 100 ML IVPB SCH (09:08)
[2016-11-14] MEDS: Digoxin 125 mcg (0.125 mg) Tab PO SCH (09:08)
[2016-11-14 09:09] VITALS: PULSE 66
[2016-11-14] MEDS: Santyl Collagenase OINTMENT TOP SCH (09:09)
[2016-11-14] MEDS: SILVASORB ANTIMICROBIAL WOUND GEL TP SCH (09:12)
[2016-11-14 10:40] LABS: HEMATOCRIT 38.5 % (35.0-51.0); MEAN CORPUSCULAR HEMOGLOBIN 32.9 pg (27.0-31.0); MEAN CORPUSCULAR HGB CONC 32.6 g/dL (33.0-37.0); RED CELL DISTRIBUTION WIDTH 15.1 % (11.5-14.5); WHITE BLOOD COUNT 8.5 K/uL (4.8-10.8)
--- NOTE | 2016-11-14 10:43 | PQF GENQUE ---
Dr. Dueñas, Is there an associated diagnosis to go along with the following chart documentation 11/10: RN: Pressure Ulcer Assessment; Posterior Sacrum MASD: Intact skin with non-blanchable redness 11/10 Backend Developer physician order: Wound RN: Reason for exam: sacrum fissula between buttocks 11/10 Wound RN:Skin integrity ofsacrum and heels intact OR: Disagree OR: Unable to determine This form is a permanent part of the medical record Clarification of your documentation is requested to better reflect the severity of illness and intensity of treatment of your patient. Indicators present [] Specify: [] [] Specify: [] [] Specify: [] [] Specify: [] Location in the medical record that reflects the above clinical findings: [] Treatment Provided: [] PHYSICIAN'S RESPONSE Based on your medical judgment of the clinical indicators outlined above please clarify the following: [] Practitioner response [] If unable to determine, please check the box, sign and date. Present On Admission (POA) Indicator: [] Present at the time of admission [] Not present at the time of admission [] Clinically Undetermined In responding to this query, please exercise your independent professional judgment. The fact that a question is asked does not imply that any particular answer is desired or expected. Thank you for your clarification on this documentation. If you have any questions please call. * Thank you, Jolene Mei RN ext. #[phone]: Estephanie BARBA
[2016-11-14 10:51] LABS: ALKALINE PHOSPHATASE 80 U/L (38-126); ALT/SGPT 26 U/L (21-72); AST/SGOT 28 U/L (17-59); BILIRUBIN,TOTAL 1.1 mg/dl (0.2-1.3); BLOOD UREA NITROGEN 20 mg/dl (9-20); CALCIUM 9.4 mg/dL (8.4-10.2); CARBON DIOXIDE 29 mmol/L (22-30); CHLORIDE 100 mmol/L (98-107); GFR AFRICAN-AMERICAN > 60; GLUCOSE,RANDOM 127 mg/dL (75-110); POTASSIUM 4.5 MMOL/L (3.6-5.0); SODIUM 142 mmol/l (132-148); TOTAL PROTEIN 7.6 G/DL (6.3-8.2)
--- NOTE | 2016-11-14 13:08 | CP.PCM.PN ---
Subjective - Date & Time of Evaluation Date of Evaluation: 11/14/16 Time of Evaluation: 13:06 - Subjective Subjective: pt seen and examined at bedside with attending. No acute events overnight. afebrile. Reports feeling better. No new complaints. Denies fever/chills, CP/SOB /palpitations. numbness/weakness. Objective - Vital Signs/Intake and Output Vital Signs (last 24 hours): Temp Pulse Resp BP Pulse Ox 97.7 F 66 20 132/81 95 11/14/16 08:19 11/14/16 08:19 11/14/16 08:19 11/14/16 08:19 11/14/16 08:19 - Medications Medications: Current Medications Collagenase (Santyl) 1 applic TOP DAILY [facility] Last Admin: 11/14/16 09:09 Dose: Not Given Cyanocobalamin (Vitamin B12 1000 Mcg Tab) 1,000 mcg PO DAILY [facility] Last Admin: 11/14/16 09:08 Dose: 1,000 mcg Digoxin (Lanoxin) 0.125 mg PO DAILY [facility] Last Admin: 11/14/16 09:08 Dose: 0.125 mg Vancomycin HCl 1 gm/ Sodium (Chloride) 250 mls @ 166.667 mls/hr IVPB Q12 [facility] Last Admin: 11/14/16 09:09 Dose: 166.667 mls/hr Cefepime HCl 1 gm/ Sodium (Chloride) 100 mls @ 100 mls/hr IVPB Q12 [facility] Last Admin: 11/14/16 09:08 Dose: 100 mls/hr Levothyroxine Sodium (Synthroid) 175 mcg PO DAILY@0630 [facility] Last Admin: 11/14/16 05:57 Dose: 175 mcg Warfarin Sodium (Coumadin) 5 mg PO QD5 [facility] PRN Reason: Protocol Stop: 11/14/16 13:01 - Labs Labs: 11/14/16 10:15 11/14/16 10:15 PT 15.3 Seconds (9.8-13.1) H 11/14/16 10:15 INR 1.5 (0.9-1.2) H 11/14/16 10:15 APTT 45.8 Seconds (25.6-37.1) H D 11/10/16 04:00 - Constitutional Appears: Non-toxic, No Acute Distress - Respiratory Exam Respiratory Exam: Clear to Ausculation Bilateral, NORMAL BREATHING PATTERN. absent: Rales, Rhonchi, Wheezes - Cardiovascular Exam Cardiovascular Exam: RRR, +S1, +S2. absent: Gallop, Murmur - GI/Abdominal Exam GI & Abdominal Exam: Soft, Normal Bowel Sounds. absent: Tenderness - Extremities Exam Extremities Exam: absent: Normal Inspection Additional comments: non healing ulcer, currently covered in dressing. C/D/I. - Neurological Exam Neurological Exam: Alert, Awake, CN II-XII Intact, Oriented x3 Assessment and Plan (1) Chronic a-fib Assessment & Plan: INR subtherapeutic, Coumadin 5mg today, f/u INR tomorrow s/p PPM Status: Acute (2) Shortness of breath Status: Resolved (3) Ulcer of ankle Assessment & Plan: currently being followed by podiatry ID consult IV ABx for coverage of MRSA, Klebsiella, and Pseudomonas Status: Acute
== END 2016-11-14 16:30 | DRG 258 ==
LOC: H.ER 11:21 → H.ERHOLD 16:08 → OBSVTOIN 16:08 → H.ICU/CCU 11-10 06:01 → H.MEDSURG1 11-11 15:14
PROVIDERS: ADMIT Family Medicine; ATTEND Family Medicine
PROC: 0JH604Z Insertion of Pacemaker, Single Chamber into Chest Subcutaneous Tissue and Fascia, Open Approach (ICD-10-PCS; 2016-11-10)
PROC: 0JPT0PZ Removal of Cardiac Rhythm Related Device from Trunk Subcutaneous Tissue and Fascia, Open Approach (ICD-10-PCS; 2016-11-10)
PROC: 30233K1 Transfusion of Nonautologous Frozen Plasma into Peripheral Vein, Percutaneous Approach (ICD-10-PCS; 2016-11-10)
PROC: 3E0234Z Introduction of Serum, Toxoid and Vaccine into Muscle, Percutaneous Approach (ICD-10-PCS; principal; 2016-11-10 16:30)
DX: I49.5 Sick sinus syndrome (principal); I50.23 Acute on chronic systolic (congestive) heart failure; L97.319 Non-pressure chronic ulcer of right ankle with unspecified severity; E86.0 Dehydration; B96.1 Klebsiella pneumoniae [K. pneumoniae] as the cause of diseases classified elsewhere; I48.2 Chronic atrial fibrillation; D53.9 Nutritional anemia, unspecified; R00.1 Bradycardia, unspecified; E03.9 Hypothyroidism, unspecified; I49.2 Junctional premature depolarization; I25.10 Atherosclerotic heart disease of native coronary artery without angina pectoris; I11.0 Hypertensive heart disease with heart failure; I87.8 Other specified disorders of veins; B95.62 Methicillin resistant Staphylococcus aureus infection as the cause of diseases classified elsewhere; Z23 Encounter for immunization; Z79.01 Long term (current) use of anticoagulants; Z95.0 Presence of cardiac pacemaker; Z87.891 Personal history of nicotine dependence; T45.515A Adverse effect of anticoagulants, initial encounter; R79.1 Abnormal coagulation profile; L84 Corns and callosities

== ENCOUNTER 2016-11-13 13:08 | Inpatient (IN) | payer OTHER ==
[2016-11-14 16:55] VITALS: BMI 31.7
[2016-11-14] MEDS ORDERED: Patient's Own Med (Vancomycin 1 Gm [Vancomycin 1gm In Normal Saline Addvantage] 1 GM) IVPB SCH (21:00)
[2016-11-14] MEDS: Cefepime 1 GM in Sodium Chloride 0.9% 100 ML IVPB SCH (21:29)
[2016-11-15] MEDS: Levothyroxine 175 MCG TAB PO SCH (06:15)
[2016-11-15] MEDS: Cefepime 1 GM in Sodium Chloride 0.9% 100 ML IVPB SCH ×2 (08:16→20:22)
[2016-11-15] MEDS: Digoxin 125 mcg (0.125 mg) Tab PO SCH (08:16)
[2016-11-15] MEDS ORDERED: CYANOCOBALAMIN 100 MCG PO SCH (09:00)
[2016-11-15] MEDS: Santyl Collagenase OINTMENT TOP SCH (09:00)
--- NOTE | 2016-11-15 10:35 | CP.PCM.CON ---
History of Present Illness - History of Present Illness History of Present Illness: I was asked to evalaute patient seen on the rehab floor. Patient is a 81 year old male with PMH HTN, hypercholesterolemia, afib who is s/ p PPM. The patient is admitted to rehab for further management. He denies chest pain or dyspnea. Review of Systems - Constitutional Constitutional: absent: As Per HPI, Anorexia, Chills, Daytime Sleepiness, Excessive Sweating, Fatigue, Fever, Frequent Falls, Headache, Increased Appetite , Lethargy, Malaise, Night Sweats, Snoring, Sleep Apnea, Weight Gain, Weight Loss, Weakness, Other - EENT Eyes: absent: As Per HPI, Blind Spots, Blurred Vision, Change in Vision, Decreased Night Vision, Diplopia, Discharge, Dry Eye, Exophthalmos, Floaters, Irritation, Itchy Eyes, Loss of Peripheral Vision, Pain, Photophobia, Requires Corrective Lenses, Sees Flashes, Spots in Vision, Tunnel Vision, Other Visual Disturbances, Loss of Vision, Other Ears: absent: As Per HPI, Decreased Hearing, Ear Discharge, Ear Pain, Tinnitus, Abnormal Hearing, Disequilibrium, Dizziness, Other Nose/Mouth/Throat: absent: As Per HPI, Epistaxis, Nasal Congestion, Nasal Discharge, Nasal Obstruction, Nasal Trauma, Nose Pain, Post Nasal Drip, Sinus Pain, Sinus Pressure, Bleeding Gums, Change in Voice, Dental Pain, Dry Mouth, Dysphagia, Halitosis, Hoarsness, Lip Swelling, Mouth Lesions, Mouth Pain, Odynophagia, Sore Throat, Throat Swelling, Tongue Swelling, Facial Pain, Neck Pain, Neck Mass, Other - Cardiovascular Cardiovascular: absent: As Per HPI, Acrocyanosis, Chest Pain, Chest Pain at Rest , Chest Pain with Activity, Claudication, Diaphoresis, Dyspnea, Dyspnea on Exertion, Edema, Irregular Heart Rhythm, Pain Radiating to Arm/Neck/Jaw, Leg Edema, Leg Ulcers, Lightheadedness, Orthopnea, Palpitations, Paroxysmal Nocturnal Dyspnea, Pedal Edema, Radiating Pain, Rapid Heart Rate, Slow Heart Rate, Syncope, Other - Respiratory Respiratory: absent: As Per HPI, Cough, Dyspnea, Hemoptysis, Dyspnea on Exertion , Wheezing, Snoring, Stridor, Pain on Inspiration, Chest Congestion, Excessive Mucous Production, Change in Mucous Color, Pain with Coughing, Other - Gastrointestinal Gastrointestinal: absent: As Per HPI, Abdominal Pain, Belching, Bloating, Change in Bowel Habits, Change in Stool Character, Coffee Ground Emesis, Constipation, Cramping, Diarrhea, Dyspepsia, Dysphagia, Early Satiety, Excessive Flatus, Fecal Incontinence, Heartburn, Hematemesis, Hematochezia, Loose Stools, Melena, Nausea, Odynophagia, Temesmus, Vomiting, Other - Genitourinary Genitourinary: absent: As Per HPI, Change in Urinary Stream, Difficulty Urinating, Dysuria, Flank Pain, Hematuria, Pyuria, Nocturia, Urinary Incontinence, Urinary Frequency, Urinary Hesitance, Urinary Urgency, Voiding Freq/Small Amts, Freq UTI, Hx Renal/Bladder Calculi, Hx /Renal Surgery, Bladder Distension, Other - Musculoskeletal Musculoskeletal: absent: As Per HPI, Abnormal Gait, Arthralgias, Atrophy, Back Pain, Deformity, Joint Swelling, Limited Range of Motion, Loss of Height, Muscle Cramps, Muscle Weakness, Myalgias, Neck Pain, Numbness, Radiating Pain into Limb, Stiffness, Tingling, Other - Integumentary Integumentary: absent: As Per HPI, Acne, Alopecia, Bleeding Lesions, Change in Hair, Change in Nails, Change in Pigmentation, Changing Lesions, Dry Skin, Erythema, Furuncle, Hirsutism, Lesions, New Lesions, Non-Healing Lesions, Photosensitivity, Pruritus, Rash, Skin Pain, Skin Ulcer, Sores, Striae, Swelling , Unusual Bruising, Wounds, Jaundice, Other - Neurological Neurological: absent: As Per HPI, Abnormal Gait, Abnormal Hearing, Abnormal Movements, Abnormal Speech, Behavioral Changes, Burning Sensations, Confusion, Convulsions, Disequilibrium, Dizziness, Numbness, Focal Weakness, Frequent Falls , Headaches, Lack of Coordination, Loss of Vision, Memory Loss, Paresthesias, Radicular Pain, Restless Legs, Sensory Deficit, Syncope, Tingling, Tremor, Vertigo, Weakness, Other Visual Disturbances, Other - Psychiatric Psychiatric: absent: As Per HPI, Abnormal Sleep Pattern, Anhedonia, Anxiety, Auditory Hallucinations, Behavioral Changes, Change in Appetite, Change in Libido, Confusion, Depression, Difficulty Concentrating, Hallucinations, Homicidal Ideation, Hopelessness, Irritability, Memory Loss, Mood Swings, Panic Attacks, Paranoia, Suicidal Ideation, Visual Hallucinations, Tactile Hallucinations, Other - Endocrine Endocrine: absent: As Per HPI, Change in Body Appearance, Change in Libido, Cold Intolorance, Deepening of Voice, Excessive Sweating, Fatigue, Flushing, Heat Intolorance, Increase in Ring/Shoe/Hat Size, Palpitations, Polydipsia, Polyphagia, Polyuria, Other Past Patient History - Past Medical History & Family History Past Medical History?: Yes - Past Social History Smoking Status: Former Smoker - CARDIAC Hx Cardiac Disorders: Yes Hx Cardia Arrhythmia: Yes (bradycardia) Hx Congestive Heart Failure: Yes Hx Hypertension: Yes - PULMONARY Hx Respiratory Disorders: No - NEUROLOGICAL Hx Neurological Disorder: No - HEENT Hx HEENT Problems: No - RENAL Hx Chronic Kidney Disease: No - ENDOCRINE/METABOLIC Hx Hypothyroidism: Yes - HEMATOLOGICAL/ONCOLOGICAL Hx Blood Disorders: No Hx AIDS: No Hx Human Immunodeficiency Virus (HIV): No - INTEGUMENTARY Hx Dermatological Problems: No - MUSCULOSKELETAL/RHEUMATOLOGICAL Hx Falls: No - GASTROINTESTINAL Hx Gastrointestinal Disorders: No - GENITOURINARY/GYNECOLOGICAL Hx Genitourinary Disorders: No - PSYCHIATRIC Hx Substance Use: No - SURGICAL HISTORY Hx Tonsillectomy: Yes Other/Comment: Paccemaker insertion - ANESTHESIA Hx Anesthesia: Yes Hx Anesthesia Reactions: No Meds Allergies/Adverse Reactions: Allergies Allergy/AdvReac Type Severity Reaction Status Date / Time No Known Allergies Allergy RASH Verified 11/14/16 16:55 - Medications Medications: Current Medications Collagenase (Santyl) 1 applic TOP DAILY [facility] Cyanocobalamin (Vitamin B12 1000 Mcg Tab) 1,000 mcg PO DAILY [facility] Last Admin: 11/15/16 08:16 Dose: 1,000 mcg Digoxin (Lanoxin) 0.125 mg PO DAILY [facility] Last Admin: 11/15/16 08:16 Dose: 0.125 mg Cefepime HCl 1 gm/ Sodium (Chloride) 100 mls @ 100 mls/hr IVPB Q12 [facility] Last Admin: 11/15/16 08:16 Dose: 100 mls/hr Vancomycin HCl 1 gm/ Sodium (Chloride) 250 mls @ 166.667 mls/hr IVPB Q12 [facility] Last Admin: 11/15/16 10:00 Dose: 166.667 mls/hr Levothyroxine Sodium (Synthroid) 175 mcg PO DAILY@0630 [facility] Last Admin: 11/15/16 06:15 Dose: 175 mcg Warfarin Sodium (Coumadin) 5 mg PO QOTHERDAY [facility] PRN Reason: Protocol Physical Exam - Constitutional Appears: Non-toxic - Head Exam Head Exam: NORMAL INSPECTION - Eye Exam Eye Exam: Normal appearance - ENT Exam ENT Exam: Mucous Membranes Moist - Neck Exam Neck exam: Positive for: Full Rom - Respiratory Exam Respiratory Exam: NORMAL BREATHING PATTERN - Cardiovascular Exam Cardiovascular Exam: Irregular Rhythm - GI/Abdominal Exam GI & Abdominal Exam: Normal Bowel Sounds - Rectal Exam Rectal Exam: Deferred - Extremities Exam Extremities exam: Positive for: pedal pulses present - Back Exam Back exam: NORMAL INSPECTION - Neurological Exam Neurological exam: Alert - Psychiatric Exam Psychiatric exam: Normal Affect - Skin Skin Exam: Normal Color Results - Vital Signs Recent Vital Signs: Last Vital Signs Temp 97.3 F L 11/15/16 08:27 Pulse 60 11/15/16 08:27 Resp 20 11/15/16 08:27 BP 140/86 11/15/16 08:27 Pulse Ox 99 11/15/16 08:27 - Labs Labs: Laboratory Results - last 24 hr 11/15/16 07:30 PT 16.0 H INR 1.5 H - EKG Data EKG Interpreted by: Myself Assessment & Plan (1) Atrial fibrillation Assessment and Plan: patient is s/p PPM. recommend continued medical tehrapy. dose coumadin. goal INR 2 to 3. Status: Acute
[2016-11-15] MEDS: SILVASORB ANTIMICROBIAL WOUND GEL TP SCH (16:58)
--- NOTE | 2016-11-15 17:01 | CP.PCM.PN ---
Subjective - Date & Time of Evaluation Date of Evaluation: 11/15/16 Time of Evaluation: 14:00 - Subjective Subjective: Podiatry progress note for Dr. Davenport 81 y/o male seen at bedside for right lower leg ulceration. Patient appears in NAD and is AAOx3. Patient denies any acute overnight events. Patient denies any pain on his right leg today. Patient denies any F/N/V/C/SOB/CP today. Patient denies of any other pedal complains at this time. Objective - Vital Signs/Intake and Output Vital Signs (last 24 hours): Temp Pulse Resp BP Pulse Ox 97 F L 64 20 148/74 98 11/15/16 16:21 11/15/16 16:21 11/15/16 16:21 11/15/16 16:21 11/15/16 16:21 - Medications Medications: Current Medications Collagenase (Santyl) 1 applic TOP DAILY [facility] Last Admin: 11/15/16 09:00 Dose: 1 applic Cyanocobalamin (Vitamin B12 1000 Mcg Tab) 1,000 mcg PO DAILY [facility] Last Admin: 11/15/16 08:16 Dose: 1,000 mcg Digoxin (Lanoxin) 0.125 mg PO DAILY [facility] Last Admin: 11/15/16 08:16 Dose: 0.125 mg Cefepime HCl 1 gm/ Sodium (Chloride) 100 mls @ 100 mls/hr IVPB Q12 [facility] Last Admin: 11/15/16 08:16 Dose: 100 mls/hr Vancomycin HCl 1 gm/ Sodium (Chloride) 250 mls @ 166.667 mls/hr IVPB Q12 [facility] Last Admin: 11/15/16 10:00 Dose: 166.667 mls/hr Levothyroxine Sodium (Synthroid) 175 mcg PO DAILY@0630 [facility] Last Admin: 11/15/16 06:15 Dose: 175 mcg Warfarin Sodium (Coumadin) 5 mg PO QOTHERDAY [facility] PRN Reason: Protocol - Labs Labs: PT 16.0 Seconds (9.8-13.1) H 11/15/16 07:30 INR 1.5 (0.9-1.2) H 11/15/16 07:30 - Constitutional Appears: Well, Non-toxic, No Acute Distress - Extremities Exam Additional comments: Vasc: DP and PT non-palpable, CFT <4 seconds to the digits, temperature gradient cool to cool from proximal to distal, edema noted to the LE bilaterally Derm: ulceration on the lateral aspect of lower 1/3 of the right leg measuring 3.0 x 2.5 x .2. Wound base is 85% granular and 15% fibrotic. minimal serous drainage noted, no malodor, no purulence noted, erythema extending to the anterior lateral leg. No probe to bone, no undermining, no tunneling noted Neuro: protective sensation slightly diminished Ortho: MM is 5/5 in all four compartments, tenderness noted to palpation surrounding ulceration site - Neurological Exam Neurological Exam: Alert, Awake, Oriented x3 - Psychiatric Exam Psychiatric exam: Normal Affect, Normal Mood Assessment and Plan - Assessment and Plan (Free Text) Assessment: 81 year old male with right lower leg ulceration likely due to 2/2 venous stasis Plan: Patient seen and evaluated bedside Patient discussed in details with attending Dr. Davenport Charts, labs, vitals reviewed (afebrile, WBC @ 8.4 (11/12)) X-ray reviewed- no fracture or destructive lesion noted; no OM or acute pathology Ulceration cleansed, dressed with Santyl, DSD and MAHI Wound culture (Final): Klebsiella oxytoca, Pseudomonas Stutzeri, MRSA Patient to receive IV abx as per ID - Cefepime, vancomycin Patient is stable from podiatry standpoint Podiatry to follow patient while in-house Patient will follow up with Dr. Davenport in wound care on weekly basis upon discharge
--- NOTE | 2016-11-15 17:02 | CP.PCM.PN ---
Subjective - Date & Time of Evaluation Date of Evaluation: 11/15/16 Time of Evaluation: 17:00 - Subjective Subjective: ID NOTE PATIENT ON TCU VANCOMYCIN TROUGH FROM 11/13/16 NOTED REPEAT TROUGH FOR TOMORROW Objective - Vital Signs/Intake and Output Vital Signs (last 24 hours): Temp Pulse Resp BP Pulse Ox 97 F L 64 20 148/74 98 11/15/16 16:21 11/15/16 16:21 11/15/16 16:21 11/15/16 16:21 11/15/16 16:21 - Medications Medications: Current Medications Collagenase (Santyl) 1 applic TOP DAILY [facility] Last Admin: 11/15/16 09:00 Dose: 1 applic Cyanocobalamin (Vitamin B12 1000 Mcg Tab) 1,000 mcg PO DAILY [facility] Last Admin: 11/15/16 08:16 Dose: 1,000 mcg Digoxin (Lanoxin) 0.125 mg PO DAILY [facility] Last Admin: 11/15/16 08:16 Dose: 0.125 mg Cefepime HCl 1 gm/ Sodium (Chloride) 100 mls @ 100 mls/hr IVPB Q12 [facility] Last Admin: 11/15/16 08:16 Dose: 100 mls/hr Vancomycin HCl 1 gm/ Sodium (Chloride) 250 mls @ 166.667 mls/hr IVPB Q12 [facility] Last Admin: 11/15/16 10:00 Dose: 166.667 mls/hr Levothyroxine Sodium (Synthroid) 175 mcg PO DAILY@0630 [facility] Last Admin: 11/15/16 06:15 Dose: 175 mcg Warfarin Sodium (Coumadin) 5 mg PO QOTHERDAY [facility] PRN Reason: Protocol - Labs Labs: PT 16.0 Seconds (9.8-13.1) H 11/15/16 07:30 INR 1.5 (0.9-1.2) H 11/15/16 07:30
--- NOTE | 2016-11-15 20:04 | CP.PCM.HP ---
History of Present Illness - History of Present Illness History of Present Illness: This is an 81 y/o male admitted for further Phys therapy and Iv antibiotics. he was discharged form the medical floor for infected ulcer of the leg and mild CHF. he was also noted to have bradycardia and noted non working pacemaker. pacemaker was replaced and was started on Iv antibiotics. He has a positive wound C and S with Klebsiella and MRSA. and Pseudomonas Past Patient History - Past Medical History & Family History Past Medical History?: Yes - Past Social History Smoking Status: Former Smoker - CARDIAC Hx Cardiac Disorders: Yes Hx Congestive Heart Failure: Yes Hx Hypertension: Yes - PULMONARY Hx Respiratory Disorders: No - NEUROLOGICAL Hx Neurological Disorder: No - HEENT Hx HEENT Problems: No - RENAL Hx Chronic Kidney Disease: No - ENDOCRINE/METABOLIC Hx Hypothyroidism: Yes - HEMATOLOGICAL/ONCOLOGICAL Hx Blood Disorders: No Hx AIDS: No Hx Human Immunodeficiency Virus (HIV): No - INTEGUMENTARY Hx Dermatological Problems: No - MUSCULOSKELETAL/RHEUMATOLOGICAL Hx Falls: No - GASTROINTESTINAL Hx Gastrointestinal Disorders: No - GENITOURINARY/GYNECOLOGICAL Hx Genitourinary Disorders: No - PSYCHIATRIC Hx Substance Use: No - SURGICAL HISTORY Hx Tonsillectomy: Yes Other/Comment: Paccemaker insertion - ANESTHESIA Hx Anesthesia: Yes Hx Anesthesia Reactions: No Meds Allergies/Adverse Reactions: Allergies Allergy/AdvReac Type Severity Reaction Status Date / Time No Known Allergies Allergy RASH Verified 11/14/16 16:55 Results - Vital Signs Recent Vital Signs: Last Vital Signs Temp 97 F L 11/15/16 16:21 Pulse 64 11/15/16 16:21 Resp 20 11/15/16 16:21 BP 148/74 11/15/16 16:21 Pulse Ox 98 11/15/16 16:21 - Labs Labs: Laboratory Results - last 24 hr 11/15/16 11/15/16 07:30 19:00 PT 16.0 H INR 1.5 H Vancomycin Trough 19.3 H
[2016-11-16] MEDS: Levothyroxine 175 MCG TAB PO SCH (06:21)
[2016-11-16] MEDS: Digoxin 125 mcg (0.125 mg) Tab PO SCH (09:16)
[2016-11-16] MEDS: Santyl Collagenase OINTMENT TOP SCH (10:17)
[2016-11-16] MEDS: SILVASORB ANTIMICROBIAL WOUND GEL TP SCH (10:17)
[2016-11-16] MEDS: Cefepime 1 GM in Sodium Chloride 0.9% 100 ML IVPB SCH ×2 (10:18→16:28)
--- NOTE | 2016-11-16 15:14 | CP.PCM.PN ---
Subjective - Date & Time of Evaluation Date of Evaluation: 11/16/16 Time of Evaluation: 15:12 - Subjective Subjective: Podiatry progress note for Dr. Davenport 81 y/o male seen at bedside for right lower leg ulceration. Patient appears in NAD and is AAOx3. Patient denies any acute overnight events. Patient denies any pain on his right leg today. States that leg swelling is decreased from yesterday. Patient denies any F/N/V/C/SOB/CP today. Patient denies of any other pedal complains at this time. Objective - Vital Signs/Intake and Output Vital Signs (last 24 hours): Temp Pulse Resp BP Pulse Ox 97.3 F L 62 20 142/79 99 11/16/16 08:14 11/16/16 08:14 11/16/16 08:14 11/16/16 08:14 11/16/16 08:14 - Medications Medications: Current Medications Collagenase (Santyl) 1 applic TOP DAILY [facility] Last Admin: 11/16/16 10:17 Dose: Not Given Cyanocobalamin (Vitamin B12 1000 Mcg Tab) 1,000 mcg PO DAILY [facility] Last Admin: 11/16/16 09:16 Dose: 1,000 mcg Digoxin (Lanoxin) 0.125 mg PO DAILY [facility] Last Admin: 11/16/16 09:16 Dose: 0.125 mg Docusate Sodium (Colace) 100 mg PO BID [facility] Last Admin: 11/16/16 09:16 Dose: 100 mg Cefepime HCl 1 gm/ Sodium (Chloride) 100 mls @ 100 mls/hr IVPB Q12@0500,1700 [facility] Vancomycin HCl 500 mg/ Sodium (Chloride) 100 mls @ 100 mls/hr IVPB Q12@0500, 1700 [facility] Lactulose (Enulose) 20 gm PO ONCE ONE Stop: 11/16/16 17:01 Levothyroxine Sodium (Synthroid) 175 mcg PO DAILY@0630 [facility] Last Admin: 11/16/16 06:21 Dose: 175 mcg Sennosides (Senokot Tab) 17.2 mg PO HS [facility] Last Admin: 11/15/16 21:42 Dose: Not Given Warfarin Sodium (Coumadin) 5 mg PO QOTHERDAY [facility] PRN Reason: Protocol - Labs Labs: PT 17.2 Seconds (9.8-13.1) H 11/16/16 10:30 INR 1.7 (0.9-1.2) H 11/16/16 10:30 - Constitutional Appears: Well, Non-toxic, No Acute Distress - Extremities Exam Additional comments: Vasc: DP and PT non-palpable, CFT <4 seconds to the digits, temperature gradient cool to cool from proximal to distal, edema noted to the LE bilaterally Derm: ulceration on the lateral aspect of lower 1/3 of the right leg measuring 3.0 x 2.5 x .2. Wound base is 85% granular and 15% fibrotic. minimal serous drainage noted, no malodor, no purulence noted, erythema extending to the anterior lateral leg. No probe to bone, no undermining, no tunneling noted Neuro: protective sensation slightly diminished Ortho: MM is 5/5 in all four compartments, tenderness noted to palpation surrounding ulceration site - Neurological Exam Neurological Exam: Alert, Awake, Oriented x3 - Psychiatric Exam Psychiatric exam: Normal Affect, Normal Mood Assessment and Plan - Assessment and Plan (Free Text) Assessment: 81 year old male with right lower leg ulceration likely due to 2/2 venous stasis Plan: Patient seen and evaluated bedside Patient discussed in details with attending Dr. Davenport Charts, labs, vitals reviewed (afebrile, WBC @ 8.4 (11/12)) X-ray reviewed- no fracture or destructive lesion noted; no OM or acute pathology Ulceration cleansed, dressed with Santyl, DSD and MAHI Wound culture (Final): Klebsiella oxytoca, Pseudomonas Stutzeri, MRSA Patient to receive IV abx as per ID - Cefepime, vancomycin Patient is stable from podiatry standpoint Podiatry to follow patient while in-house Patient will follow up with Dr. Davneport in wound care on weekly basis upon discharge
--- NOTE | 2016-11-16 23:32 | CP.PCM.PN ---
Subjective - Date & Time of Evaluation Date of Evaluation: 11/16/16 Time of Evaluation: 10:00 - Subjective Subjective: Patient is doing well Has sosme constipation Has no fever INR elevated. Objective - Vital Signs/Intake and Output Vital Signs (last 24 hours): Temp Pulse Resp BP Pulse Ox 97.3 F L 63 20 104/68 99 11/16/16 20:53 11/16/16 20:53 11/16/16 20:53 11/16/16 20:53 11/16/16 20:53 - Medications Medications: Current Medications Collagenase (Santyl) 1 applic TOP DAILY [facility] Last Admin: 11/16/16 10:17 Dose: Not Given Cyanocobalamin (Vitamin B12 1000 Mcg Tab) 1,000 mcg PO DAILY [facility] Last Admin: 11/16/16 09:16 Dose: 1,000 mcg Digoxin (Lanoxin) 0.125 mg PO DAILY [facility] Last Admin: 11/16/16 09:16 Dose: 0.125 mg Docusate Sodium (Colace) 100 mg PO BID [facility] Last Admin: 11/16/16 16:29 Dose: 100 mg Cefepime HCl 1 gm/ Sodium (Chloride) 100 mls @ 100 mls/hr IVPB Q12@0500,1700 [facility] Last Admin: 11/16/16 16:28 Dose: 100 mls/hr Vancomycin HCl 500 mg/ Sodium (Chloride) 100 mls @ 100 mls/hr IVPB Q12@0500, 1700 [facility] Levothyroxine Sodium (Synthroid) 175 mcg PO DAILY@0630 [facility] Last Admin: 11/16/16 06:21 Dose: 175 mcg Sennosides (Senokot Tab) 17.2 mg PO HS [facility] Last Admin: 11/16/16 21:13 Dose: Not Given Warfarin Sodium (Coumadin) 5 mg PO QOTHERDAY [facility] PRN Reason: Protocol Last Admin: 11/16/16 19:28 Dose: 5 mg - Labs Labs: PT 17.2 Seconds (9.8-13.1) H 11/16/16 10:30 INR 1.7 (0.9-1.2) H 11/16/16 10:30
[2016-11-17] MEDS: Levothyroxine 175 MCG TAB PO SCH (05:29)
[2016-11-17] MEDS: Cefepime 1 GM in Sodium Chloride 0.9% 100 ML IVPB SCH ×2 (05:29→17:05)
--- NOTE | 2016-11-17 05:42 | CP.PCM.PN ---
Subjective - Date & Time of Evaluation Date of Evaluation: 11/17/16 Time of Evaluation: 05:40 - Subjective Subjective: Podiatry Progress Note - Dr. Martinez 81 year old male patient seen at bedside for right lateral leg ulceration. Patient seen resting comfortably, AAOx3 and NAD. Patient denies any acute events overnight. Patient states he no longer has swelling to his legs. Patient denies any pain to his ulceration site. Patient denies N/V/F/D/C/SOB/calf pain. Offers no other pedal complaints at this time. Objective - Vital Signs/Intake and Output Vital Signs (last 24 hours): Temp Pulse Resp BP Pulse Ox 97.3 F L 63 20 104/68 99 11/16/16 20:53 11/16/16 20:53 11/16/16 20:53 11/16/16 20:53 11/16/16 20:53 - Medications Medications: Current Medications Collagenase (Santyl) 1 applic TOP DAILY [facility] Last Admin: 11/16/16 10:17 Dose: Not Given Cyanocobalamin (Vitamin B12 1000 Mcg Tab) 1,000 mcg PO DAILY [facility] Last Admin: 11/16/16 09:16 Dose: 1,000 mcg Digoxin (Lanoxin) 0.125 mg PO DAILY [facility] Last Admin: 11/16/16 09:16 Dose: 0.125 mg Docusate Sodium (Colace) 100 mg PO BID [facility] Last Admin: 11/16/16 16:29 Dose: 100 mg Cefepime HCl 1 gm/ Sodium (Chloride) 100 mls @ 100 mls/hr IVPB Q12@0500,1700 [facility] Last Admin: 11/17/16 05:29 Dose: 100 mls/hr Vancomycin HCl 500 mg/ Sodium (Chloride) 100 mls @ 100 mls/hr IVPB Q12@0500, 1700 [facility] Levothyroxine Sodium (Synthroid) 175 mcg PO DAILY@0630 [facility] Last Admin: 11/17/16 05:29 Dose: 175 mcg Sennosides (Senokot Tab) 17.2 mg PO HS [facility] Last Admin: 11/16/16 21:13 Dose: Not Given Warfarin Sodium (Coumadin) 5 mg PO QOTHERDAY [facility] PRN Reason: Protocol Last Admin: 11/16/16 19:28 Dose: 5 mg - Labs Labs: PT 17.2 Seconds (9.8-13.1) H 11/16/16 10:30 INR 1.7 (0.9-1.2) H 11/16/16 10:30 - Constitutional Appears: Well, Non-toxic, No Acute Distress - Extremities Exam Additional comments: VASC: DP and PT pulses non-palpable b/l. CFT <4 seconds to all digits. TG warm to cool b/l. No edema noted to bilateral LE. NEURO: Gross sensation diminished bilaterally. DERM: Ulceration noted to the lateral aspect of lower 1/3 of the right leg measuring 3.0 x 2.5 x 0.2 cm - ulceration is noted to have 85% granular and 15% fibrotic base. Minimal serosanguinous dranage at this visit; no malodor, no purulence, no probe to bone, no undermining, no tunneling, no ascending cellulitis. Venous stasis dermatitis noted b/l. ORTHO: Mild tenderness to palpation RLE ulceration. Muscle strength 5/5 for all muscle groups b/l. - Neurological Exam Neurological Exam: Alert, Awake, Oriented x3 - Psychiatric Exam Psychiatric exam: Normal Affect, Normal Mood Assessment and Plan - Assessment and Plan (Free Text) Assessment: 81 year old male with right lower leg ulceration likely 2/2 venous stasis Plan: Patient seen and evaluated bedside Patient discussed in details with attending Dr. Vergara Charts, labs, vitals reviewed = afebrile Ulceration cleansed with sterile saline, dressed with Santyl, DSD and MAHI Wound culture (Final): Klebsiella oxytoca, Pseudomonas Stutzeri, MRSA Continue abx per ID - Cefepime, Vancomycin Patient is stable from podiatry standpoint Podiatry will continue to follow patient while in house Patient will follow up with Dr. Vergara in wound care on weekly basis upon discharge
[2016-11-17] MEDS: Santyl Collagenase OINTMENT TOP SCH (09:18)
[2016-11-17] MEDS: SILVASORB ANTIMICROBIAL WOUND GEL TP SCH (09:19)
[2016-11-17] MEDS: Digoxin 125 mcg (0.125 mg) Tab PO SCH (09:23)
[2016-11-18] MEDS: Cefepime 1 GM in Sodium Chloride 0.9% 100 ML IVPB SCH ×2 (04:29→17:05)
--- NOTE | 2016-11-18 06:07 | CP.PCM.PN ---
Subjective - Date & Time of Evaluation Date of Evaluation: 11/18/16 Time of Evaluation: 06:04 - Subjective Subjective: Podiatry Progress Note - Dr. Martinez 81 year old male patient seen at bedside for right lateral leg ulceration. Patient seen resting comfortably, AAOx3 and NAD. Patient denies any acute events overnight. Patient denies any pain to his ulceration site, however experiences slight tenderness when the area around his wound is touched. Patient denies N/V/F/D/C/SOB/calf pain. Offers no other pedal complaints at this time. Objective - Vital Signs/Intake and Output Vital Signs (last 24 hours): Temp Pulse Resp BP Pulse Ox 97.4 F L 60 20 131/79 97 11/17/16 20:51 11/17/16 20:51 11/17/16 20:51 11/17/16 20:51 11/17/16 20:51 - Medications Medications: Current Medications Collagenase (Santyl) 1 applic TOP DAILY [facility] Last Admin: 11/17/16 09:18 Dose: 1 applic Cyanocobalamin (Vitamin B12 1000 Mcg Tab) 1,000 mcg PO DAILY [facility] Last Admin: 11/17/16 09:17 Dose: 1,000 mcg Digoxin (Lanoxin) 0.125 mg PO DAILY [facility] Last Admin: 11/17/16 09:23 Dose: 0.125 mg Docusate Sodium (Colace) 100 mg PO BID [facility] Last Admin: 11/17/16 18:55 Dose: 100 mg Cefepime HCl 1 gm/ Sodium (Chloride) 100 mls @ 100 mls/hr IVPB Q12@0500,1700 [facility] Last Admin: 11/18/16 04:29 Dose: 100 mls/hr Vancomycin HCl 500 mg/ Sodium (Chloride) 100 mls @ 100 mls/hr IVPB Q12@0500, 1700 [facility] Last Admin: 11/18/16 05:28 Dose: 100 mls/hr Levothyroxine Sodium (Synthroid) 175 mcg PO DAILY@0630 [facility] Last Admin: 11/17/16 05:29 Dose: 175 mcg Sennosides (Senokot Tab) 17.2 mg PO HS [facility] Last Admin: 11/17/16 21:11 Dose: 17.2 mg - Labs Labs: PT 17.2 Seconds (9.8-13.1) H 11/16/16 10:30 INR 1.7 (0.9-1.2) H 11/16/16 10:30 - Constitutional Appears: Well, Non-toxic, No Acute Distress - Extremities Exam Additional comments: VASC: DP and PT pulses non-palpable b/l. CFT <4 seconds to all digits. TG warm to cool b/l. No edema noted to bilateral LE. NEURO: Gross sensation diminished bilaterally. DERM: Ulceration noted to the lateral aspect of lower 1/3 of the right leg measuring 3.0 x 2.5 x 0.2 cm - ulceration is noted to have 85% granular and 15% fibrotic base and mildly macerated periwound. Minimal serosanguinous dranage at this visit; no malodor, no purulence, no probe to bone, no undermining, no tunneling, no ascending cellulitis. Venous stasis dermatitis noted b/l. ORTHO: Mild tenderness to palpation RLE ulceration. Muscle strength 5/5 for all muscle groups b/l. - Neurological Exam Neurological Exam: Alert, Awake, Oriented x3 - Psychiatric Exam Psychiatric exam: Normal Affect, Normal Mood Assessment and Plan - Assessment and Plan (Free Text) Assessment: 81 year old male with right lower leg ulceration likely 2/2 venous stasis Plan: Patient seen and evaluated bedside Patient discussed in details with attending Dr. Vergara Charts, labs, vitals reviewed = afebrile Ulceration cleansed with sterile saline, periwound painted with betadine, dressed with Santyl, DSD and MAHI Wound culture (Final): Klebsiella oxytoca, Pseudomonas Stutzeri, MRSA Continue abx - Cefepime, Vancomycin Patient is stable from podiatry standpoint Podiatry will continue to follow patient while in house Patient will follow up with Dr. Vergara in wound care on weekly basis upon discharge
[2016-11-18] MEDS: Levothyroxine 175 MCG TAB PO SCH (06:35)
[2016-11-18] MEDS: Santyl Collagenase OINTMENT TOP SCH (08:35)
[2016-11-18] MEDS: Digoxin 125 mcg (0.125 mg) Tab PO SCH (08:36)
[2016-11-18] MEDS: SILVASORB ANTIMICROBIAL WOUND GEL TP SCH (08:38)
--- NOTE | 2016-11-18 11:02 | CP.PCM.PN ---
Subjective - Date & Time of Evaluation Date of Evaluation: 11/17/16 Time of Evaluation: 10:00 - Subjective Subjective: Patient continues t do well Wound has improved Has no chest pain or SOB Objective - Vital Signs/Intake and Output Vital Signs (last 24 hours): Temp Pulse Resp BP Pulse Ox 97.9 F 64 20 136/78 97 11/18/16 08:41 11/18/16 08:41 11/18/16 08:41 11/18/16 08:41 11/18/16 08:41 - Medications Medications: Current Medications Collagenase (Santyl) 1 applic TOP DAILY [facility] Last Admin: 11/18/16 08:35 Dose: 1 applic Cyanocobalamin (Vitamin B12 1000 Mcg Tab) 1,000 mcg PO DAILY [facility] Last Admin: 11/18/16 08:35 Dose: 1,000 mcg Digoxin (Lanoxin) 0.125 mg PO DAILY [facility] Last Admin: 11/18/16 08:36 Dose: 0.125 mg Docusate Sodium (Colace) 100 mg PO BID [facility] Last Admin: 11/18/16 08:35 Dose: 100 mg Cefepime HCl 1 gm/ Sodium (Chloride) 100 mls @ 100 mls/hr IVPB Q12@0500,1700 [facility] Last Admin: 11/18/16 04:29 Dose: 100 mls/hr Vancomycin HCl 500 mg/ Sodium (Chloride) 100 mls @ 100 mls/hr IVPB Q12@0500, 1700 [facility] Last Admin: 11/18/16 05:28 Dose: 100 mls/hr Levothyroxine Sodium (Synthroid) 175 mcg PO DAILY@0630 [facility] Last Admin: 11/18/16 06:35 Dose: 175 mcg Sennosides (Senokot Tab) 17.2 mg PO HS [facility] Last Admin: 11/17/16 21:11 Dose: 17.2 mg - Labs Labs: PT 18.0 Seconds (9.8-13.1) H 11/18/16 09:27 INR 1.7 (0.9-1.2) H 11/18/16 09:27 - Head Exam Head Exam: NORMAL INSPECTION - Eye Exam Eye Exam: Normal appearance - ENT Exam ENT Exam: Mucous Membranes Moist - Respiratory Exam Respiratory Exam: Clear to Ausculation Bilateral - Cardiovascular Exam Cardiovascular Exam: REGULAR RHYTHM - GI/Abdominal Exam GI & Abdominal Exam: Normal Bowel Sounds Assessment and Plan (1) Infected wound Status: Acute (2) Atrial fibrillation Status: Acute (3) Hypothyroidism Status: Acute (4) Abnormal gait Status: Acute - Assessment and Plan (Free Text) Plan: Ciont meds Cont tx Cont Txpain meds. follow up with ID.
--- NOTE | 2016-11-18 11:04 | CP.PCM.PN ---
Subjective - Date & Time of Evaluation Date of Evaluation: 11/18/16 Time of Evaluation: 11:02 - Subjective Subjective: Patient has no chest pain or SOB Doing well with PT ON IV antibiotics INR 1.7 Has no fever. Objective - Vital Signs/Intake and Output Vital Signs (last 24 hours): Temp Pulse Resp BP Pulse Ox 97.9 F 64 20 136/78 97 11/18/16 08:41 11/18/16 08:41 11/18/16 08:41 11/18/16 08:41 11/18/16 08:41 - Medications Medications: Current Medications Collagenase (Santyl) 1 applic TOP DAILY [facility] Last Admin: 11/18/16 08:35 Dose: 1 applic Cyanocobalamin (Vitamin B12 1000 Mcg Tab) 1,000 mcg PO DAILY [facility] Last Admin: 11/18/16 08:35 Dose: 1,000 mcg Digoxin (Lanoxin) 0.125 mg PO DAILY [facility] Last Admin: 11/18/16 08:36 Dose: 0.125 mg Docusate Sodium (Colace) 100 mg PO BID [facility] Last Admin: 11/18/16 08:35 Dose: 100 mg Cefepime HCl 1 gm/ Sodium (Chloride) 100 mls @ 100 mls/hr IVPB Q12@0500,1700 [facility] Last Admin: 11/18/16 04:29 Dose: 100 mls/hr Vancomycin HCl 500 mg/ Sodium (Chloride) 100 mls @ 100 mls/hr IVPB Q12@0500, 1700 [facility] Last Admin: 11/18/16 05:28 Dose: 100 mls/hr Levothyroxine Sodium (Synthroid) 175 mcg PO DAILY@0630 [facility] Last Admin: 11/18/16 06:35 Dose: 175 mcg Sennosides (Senokot Tab) 17.2 mg PO HS [facility] Last Admin: 11/17/16 21:11 Dose: 17.2 mg - Labs Labs: PT 18.0 Seconds (9.8-13.1) H 11/18/16 09:27 INR 1.7 (0.9-1.2) H 11/18/16 09:27 - Head Exam Head Exam: NORMAL INSPECTION - Eye Exam Eye Exam: Normal appearance - ENT Exam ENT Exam: Mucous Membranes Moist - Cardiovascular Exam Cardiovascular Exam: REGULAR RHYTHM - GI/Abdominal Exam GI & Abdominal Exam: Normal Bowel Sounds - Neurological Exam Neurological Exam: Awake, Oriented x3 - Psychiatric Exam Psychiatric exam: Normal Mood Assessment and Plan (1) Infected wound Status: Acute (2) Atrial fibrillation Status: Acute (3) Hypothyroidism Status: Acute (4) Abnormal gait Status: Acute - Assessment and Plan (Free Text) Plan: Cont meds Cont tx Cont PT Cont PT.
[2016-11-19] MEDS: Cefepime 1 GM in Sodium Chloride 0.9% 100 ML IVPB SCH ×2 (04:33→16:06)
[2016-11-19] MEDS: Levothyroxine 175 MCG TAB PO SCH (06:03)
--- NOTE | 2016-11-19 08:37 | CP.PCM.PN ---
Subjective - Date & Time of Evaluation Date of Evaluation: 11/19/16 Time of Evaluation: 08:35 - Subjective Subjective: Podiatry Progress Note - Dr. Martinez 81 year old male patient seen at bedside for right lateral leg ulceration. Patient seen out of bed and in chair, AAOx3 and NAD. Patient denies any acute events overnight. Patient states he no longer feels tenderness whenever there is pressure on his wound. Patient denies N/V/F/D/C/SOB/calf pain. Offers no other pedal complaints at this time. Objective - Vital Signs/Intake and Output Vital Signs (last 24 hours): Temp Pulse Resp BP Pulse Ox 98.4 F 66 20 151/93 H 96 11/19/16 08:32 11/19/16 08:32 11/19/16 08:32 11/19/16 08:32 11/19/16 08:32 - Medications Medications: Current Medications Collagenase (Santyl) 1 applic TOP DAILY [facility] Last Admin: 11/18/16 08:35 Dose: 1 applic Cyanocobalamin (Vitamin B12 1000 Mcg Tab) 1,000 mcg PO DAILY [facility] Last Admin: 11/18/16 08:35 Dose: 1,000 mcg Digoxin (Lanoxin) 0.125 mg PO DAILY [facility] Last Admin: 11/18/16 08:36 Dose: 0.125 mg Docusate Sodium (Colace) 100 mg PO BID [facility] Last Admin: 11/18/16 17:06 Dose: 100 mg Cefepime HCl 1 gm/ Sodium (Chloride) 100 mls @ 100 mls/hr IVPB Q12@0500,1700 [facility] Last Admin: 11/19/16 04:33 Dose: 100 mls/hr Vancomycin HCl 500 mg/ Sodium (Chloride) 100 mls @ 100 mls/hr IVPB Q12@0500, 1700 [facility] Last Admin: 11/19/16 04:43 Dose: 100 mls/hr Levothyroxine Sodium (Synthroid) 175 mcg PO DAILY@0630 [facility] Last Admin: 11/19/16 06:03 Dose: 175 mcg Sennosides (Senokot Tab) 17.2 mg PO HS [facility] Last Admin: 11/18/16 21:06 Dose: Not Given - Labs Labs: PT 18.8 Seconds (9.8-13.1) H 11/19/16 06:00 INR 1.8 (0.9-1.2) H 11/19/16 06:00 - Constitutional Appears: Well, Non-toxic, No Acute Distress - Extremities Exam Additional comments: VASC: DP and PT pulses non-palpable b/l. CFT <4 seconds to all digits. TG warm to cool b/l. No edema noted to bilateral LE. NEURO: Gross sensation diminished bilaterally. DERM: Ulceration noted to the lateral aspect of lower 1/3 of the right leg measuring 3.0 x 2.5 x 0.2 cm - ulceration is noted to have 85% granular and 15% fibrotic base and mildly macerated periwound. Minimal serosanguinous dranage at this visit; no malodor, no purulence, no probe to bone, no undermining, no tunneling, no ascending cellulitis. Venous stasis dermatitis noted b/l. ORTHO: No tenderness to palpation RLE ulceration. Muscle strength 5/5 for all muscle groups b/l. - Neurological Exam Neurological Exam: Alert, Awake, Oriented x3 - Psychiatric Exam Psychiatric exam: Normal Affect, Normal Mood Assessment and Plan - Assessment and Plan (Free Text) Assessment: 81 year old male with right lower leg ulceration likely 2/2 venous stasis Plan: Patient seen and evaluated bedside Patient discussed in details with attending Dr. Vergara Charts, labs, vitals reviewed = afebrile Ulceration cleansed with sterile saline, Silvasorb applied, R leg dressed with DSD and MAHI D/C Santyl Wound culture (Final): Klebsiella oxytoca, Pseudomonas Stutzeri, MRSA Continue abx - Cefepime, Vancomycin Patient is stable from podiatry standpoint F/U discharge recs Podiatry will continue to follow patient while in house Patient will follow up with Dr. Vergara in wound care 1 week s/p discharge for outpatient care
[2016-11-19] MEDS: Digoxin 125 mcg (0.125 mg) Tab PO SCH (08:52)
[2016-11-19] MEDS: Santyl Collagenase OINTMENT TOP SCH (08:52)
[2016-11-19] MEDS: SILVASORB ANTIMICROBIAL WOUND GEL TP SCH (08:53)
[2016-11-20] MEDS: Cefepime 1 GM in Sodium Chloride 0.9% 100 ML IVPB SCH ×2 (04:11→16:43)
[2016-11-20] MEDS: Levothyroxine 175 MCG TAB PO SCH (05:29)
--- NOTE | 2016-11-20 07:28 | CP.PCM.PN ---
Subjective - Date & Time of Evaluation Date of Evaluation: 11/20/16 Time of Evaluation: 07:27 - Subjective Subjective: Podiatry Progress Note - Dr. Martinez 81 year old male patient seen at bedside for right lateral leg ulceration. Patient seen resting in bed comfortably, AAOx3 and NAD. Patient denies any acute events overnight. Patient denies any pain to his right leg today. Patient aware he is to follow up with Dr. Martinez in wound care clinic in once discharged. Patient denies N/V/F/D/C/SOB/calf pain. Offers no other pedal complaints at this time. Objective - Vital Signs/Intake and Output Vital Signs (last 24 hours): Temp Pulse Resp BP Pulse Ox 97.9 F 62 20 145/80 97 11/19/16 19:41 11/19/16 19:41 11/19/16 19:41 11/19/16 19:41 11/19/16 19:41 - Medications Medications: Current Medications Collagenase (Santyl) 1 applic TOP DAILY [facility] Last Admin: 11/19/16 08:52 Dose: 1 applic Cyanocobalamin (Vitamin B12 1000 Mcg Tab) 1,000 mcg PO DAILY [facility] Last Admin: 11/19/16 08:53 Dose: 1,000 mcg Digoxin (Lanoxin) 0.125 mg PO DAILY [facility] Last Admin: 11/19/16 08:52 Dose: 0.125 mg Docusate Sodium (Colace) 100 mg PO BID [facility] Last Admin: 11/19/16 16:06 Dose: 100 mg Cefepime HCl 1 gm/ Sodium (Chloride) 100 mls @ 100 mls/hr IVPB Q12@0500,1700 [facility] Last Admin: 11/20/16 04:11 Dose: 100 mls/hr Vancomycin HCl 500 mg/ Sodium (Chloride) 100 mls @ 100 mls/hr IVPB Q12@0500, 1700 [facility] Last Admin: 11/20/16 04:11 Dose: 100 mls/hr Levothyroxine Sodium (Synthroid) 175 mcg PO DAILY@0630 [facility] Last Admin: 11/20/16 05:29 Dose: 175 mcg Sennosides (Senokot Tab) 17.2 mg PO HS [facility] Last Admin: 11/19/16 21:13 Dose: Not Given - Labs Labs: PT 17.9 Seconds (9.8-13.1) H 11/20/16 06:40 INR 1.7 (0.9-1.2) H 11/20/16 06:40 - Constitutional Appears: Well, Non-toxic, No Acute Distress - Extremities Exam Additional comments: VASC: DP and PT pulses non-palpable b/l. CFT <4 seconds to all digits. TG warm to cool b/l. No edema noted to bilateral LE. NEURO: Gross sensation diminished bilaterally. DERM: Ulceration noted to the lateral aspect of lower 1/3 of the right leg measuring 3.0 x 2.5 x 0.2 cm - ulceration is noted to have 85% granular and 15% fibrotic base. No maceration noted periwound at this visit. Minimal serosanguinous dranage at this visit; no malodor, no purulence, no probe to bone , no undermining, no tunneling, no ascending cellulitis. Venous stasis dermatitis noted b/l. ORTHO: No tenderness to palpation RLE ulceration. Muscle strength 5/5 for all muscle groups b/l. - Neurological Exam Neurological Exam: Alert, Awake, Oriented x3 - Psychiatric Exam Psychiatric exam: Normal Affect, Normal Mood Assessment and Plan - Assessment and Plan (Free Text) Assessment: 81 year old male with right lower leg ulceration likely 2/2 venous stasis Plan: Patient seen and evaluated bedside Discussed with attending, Dr. Martinez Charts, labs, vitals reviewed = afebrile Ulceration cleansed with sterile saline, Silvasorb applied, R leg dressed with DSD and MAHI Wound culture (Final): Klebsiella oxytoca, Pseudomonas Stutzeri, MRSA Continue abx - Cefepime, Vancomycin Patient is stable from podiatry standpoint F/U discharge recs Podiatry will continue to follow patient while in house Patient will follow up with Dr. Vergara in wound care 1 week s/p discharge for outpatient care
[2016-11-20] MEDS: Digoxin 125 mcg (0.125 mg) Tab PO SCH (08:38)
[2016-11-20 16:03] LABS: RBC URINE 4 /hpf (0-3); URINE BACTERIA RARE (<OCC); URINE BILIRUBIN NEGATIVE (NEGATIVE); URINE BLOOD SMALL (NEGATIVE); URINE COLOR YELLOW (YELLOW); URINE GLUCOSE (UA) NEG (Normal); URINE KETONE NEGATIVE (NEGATIVE); URINE LEUKOCYTE ESTERASE NEG Leu/uL (Negative); URINE PROTEIN NEGATIVE (NEGATIVE); URINE UROBILINOGEN 0.2-1.0 mg/dL (0.2-1.0); WBC URINE 1 /hpf (0-5)
[2016-11-20] MEDS: SILVASORB ANTIMICROBIAL WOUND GEL TP SCH (16:48)
[2016-11-20] MEDS: Santyl Collagenase OINTMENT TOP SCH (18:04)
[2016-11-21] MEDS: Cefepime 1 GM in Sodium Chloride 0.9% 100 ML IVPB SCH ×2 (04:20→16:34)
--- NOTE | 2016-11-21 05:50 | CP.PCM.PN ---
Subjective - Date & Time of Evaluation Date of Evaluation: 11/21/16 Time of Evaluation: 05:49 - Subjective Subjective: Podiatry Progress Note - Dr. Martinez 81 year old male patient seen at bedside for right lateral leg ulceration. Patient seen resting in bed comfortably, AAOx3 and NAD. Patient denies any acute events overnight. Patient denies any pain to his right leg today. Patient states he is working with physical therapy and is ambulating without any issues. Patient denies N/V/F/D/C/SOB/calf pain. Offers no other pedal complaints at this time. Objective - Vital Signs/Intake and Output Vital Signs (last 24 hours): Temp Pulse Resp BP Pulse Ox 97 F L 63 20 139/83 98 11/20/16 22:00 11/20/16 19:42 11/20/16 19:42 11/20/16 19:42 11/20/16 19:42 - Medications Medications: Current Medications Cyanocobalamin (Vitamin B12 1000 Mcg Tab) 1,000 mcg PO DAILY [facility] Last Admin: 11/20/16 08:38 Dose: 1,000 mcg Digoxin (Lanoxin) 0.125 mg PO DAILY [facility] Last Admin: 11/20/16 08:38 Dose: 0.125 mg Docusate Sodium (Colace) 100 mg PO BID [facility] Last Admin: 11/20/16 16:42 Dose: 100 mg Cefepime HCl 1 gm/ Sodium (Chloride) 100 mls @ 100 mls/hr IVPB Q12@0500,1700 [facility] Last Admin: 11/21/16 04:20 Dose: 100 mls/hr Vancomycin HCl 500 mg/ Sodium (Chloride) 100 mls @ 100 mls/hr IVPB Q12@0500, 1700 [facility] Last Admin: 11/21/16 04:23 Dose: 100 mls/hr Levothyroxine Sodium (Synthroid) 175 mcg PO DAILY@0630 [facility] Last Admin: 11/20/16 05:29 Dose: 175 mcg Sennosides (Senokot Tab) 17.2 mg PO HS [facility] Last Admin: 11/20/16 21:02 Dose: Not Given - Labs Labs: PT 17.6 Seconds (9.8-13.1) H 11/21/16 04:50 INR 1.7 (0.9-1.2) H 11/21/16 04:50 - Constitutional Appears: Well, Non-toxic, No Acute Distress - Extremities Exam Additional comments: VASC: DP and PT pulses non-palpable b/l. CFT <4 seconds to all digits. TG warm to cool b/l. No edema noted to bilateral LE. NEURO: Gross sensation diminished bilaterally. DERM: Ulceration noted to the lateral aspect of lower 1/3 of the right leg measuring 3.0 x 2.5 x 0.2 cm - ulceration is noted to have 85% granular and 15% fibrotic base. No maceration noted periwound at this visit. Minimal serosanguinous dranage at this visit; no malodor, no purulence, no probe to bone , no undermining, no tunneling, no ascending cellulitis. Venous stasis dermatitis noted b/l. ORTHO: No tenderness to palpation RLE ulceration. Muscle strength 5/5 for all muscle groups b/l. - Neurological Exam Neurological Exam: Alert, Awake, Oriented x3 - Psychiatric Exam Psychiatric exam: Normal Affect, Normal Mood Assessment and Plan - Assessment and Plan (Free Text) Assessment: 81 year old male with right lower leg ulceration likely 2/2 venous stasis Plan: Patient seen and evaluated bedside Discussed with attending, Dr. Martinez Charts, labs, vitals reviewed = afebrile Ulceration cleansed with sterile saline, Silvasorb applied, R leg dressed with DSD and MAHI Wound culture (Final): Klebsiella oxytoca, Pseudomonas Stutzeri, MRSA Continue abx - Cefepime, Vancomycin Patient is stable from podiatry standpoint Podiatry will continue to follow patient while in house Patient will follow up with Dr. Vergara in wound care 1 week s/p discharge for outpatient care
[2016-11-21] MEDS: Levothyroxine 175 MCG TAB PO SCH (06:17)
[2016-11-21] MEDS: SILVASORB ANTIMICROBIAL WOUND GEL TP SCH (08:56)
[2016-11-21] MEDS: Digoxin 125 mcg (0.125 mg) Tab PO SCH (08:57)
[2016-11-22] MEDS: Cefepime 1 GM in Sodium Chloride 0.9% 100 ML IVPB SCH ×2 (05:32→16:36)
[2016-11-22] MEDS: Levothyroxine 175 MCG TAB PO SCH (06:36)
[2016-11-22] MEDS: Digoxin 125 mcg (0.125 mg) Tab PO SCH (08:32)
--- NOTE | 2016-11-22 15:10 | CP.PCM.PN ---
Subjective - Date & Time of Evaluation Date of Evaluation: 11/22/16 Time of Evaluation: 15:08 - Subjective Subjective: Podiatry Progress Note - Dr. Martinez 81 year old male patient seen at bedside for right lateral leg ulceration. Patient is AAOx3 and in NAD. Patient denies any acute overnight events. Patient denies any pain to his right leg today. Patient states he is working with physical therapy and is ambulating without any issues. Patient denies of any recent F/N/V/C/SOB/CP/calf pain today. Patient denies of any pedal complaints at this time. Objective - Vital Signs/Intake and Output Vital Signs (last 24 hours): Temp Pulse Resp BP Pulse Ox 97 F L 61 20 109/66 96 11/22/16 08:49 11/22/16 08:49 11/22/16 08:49 11/22/16 08:49 11/22/16 08:49 - Medications Medications: Current Medications Cyanocobalamin (Vitamin B12 1000 Mcg Tab) 1,000 mcg PO DAILY [facility] Last Admin: 11/22/16 08:32 Dose: 1,000 mcg Digoxin (Lanoxin) 0.125 mg PO DAILY [facility] Last Admin: 11/22/16 08:32 Dose: 0.125 mg Docusate Sodium (Colace) 100 mg PO BID [facility] Last Admin: 11/22/16 08:32 Dose: Not Given Cefepime HCl 1 gm/ Sodium (Chloride) 100 mls @ 100 mls/hr IVPB Q12@0500,1700 [facility] Last Admin: 11/22/16 05:32 Dose: 100 mls/hr Vancomycin HCl 500 mg/ Sodium (Chloride) 100 mls @ 100 mls/hr IVPB Q12@0500, 1700 [facility] Last Admin: 11/22/16 06:00 Dose: 100 mls/hr Levothyroxine Sodium (Synthroid) 175 mcg PO DAILY@0630 [facility] Last Admin: 11/22/16 06:36 Dose: 175 mcg Sennosides (Senokot Tab) 17.2 mg PO HS [facility] Last Admin: 11/21/16 21:08 Dose: 17.2 mg - Labs Labs: PT 20.3 Seconds (9.8-13.1) H 11/22/16 06:00 INR 1.8 (0.9-1.2) H 11/22/16 06:00 - Constitutional Appears: Well, Non-toxic, No Acute Distress - Extremities Exam Additional comments: VASC: DP and PT pulses non-palpable b/l. CFT <4 seconds to all digits. TG warm to cool from proximal to distal b/l. No edema noted to bilateral LE. DERM: Ulceration noted to the lateral aspect of lower 1/3 of the right leg measuring 3.0 x 2.5 x 0.2 cm - ulceration is noted to have 85% granular and 15% fibrotic base. No maceration noted periwound at this visit. Minimal serosanguinous dranage at this visit; no malodor, no purulence, no probe to bone , no undermining, no tunneling, no ascending cellulitis. Venous stasis dermatitis noted b/l. NEURO: Gross sensation diminished bilaterally. ORTHO: No tenderness to palpation RLE ulceration. Muscle strength 5/5 for all muscle groups b/l. - Neurological Exam Neurological Exam: Alert, Awake, Oriented x3 - Psychiatric Exam Psychiatric exam: Normal Affect, Normal Mood Assessment and Plan - Assessment and Plan (Free Text) Assessment: 81 year old male with right lower leg ulceration likely 2/2 venous stasis Plan: Patient seen and evaluated bedside Discussed with attending, Dr. Martinez Charts, labs, vitals reviewed = afebrile Ulceration cleansed with sterile saline, Silvasorb applied, R leg dressed with DSD and MAHI Wound culture (Final): Klebsiella oxytoca, Pseudomonas Stutzeri, MRSA Continue abx - Cefepime, Vancomycin Patient is stable from podiatry standpoint Podiatry will continue to follow patient while in house Patient will follow up with Dr. Vergara in wound care 1 week s/p discharge for outpatient care
[2016-11-22] MEDS: SILVASORB ANTIMICROBIAL WOUND GEL TP SCH (16:37)
--- NOTE | 2016-11-22 17:14 | PN ---
DATE: 11/22/2016 SUBJECTIVE: The patient is seen and examined. The patient is seen for Dr. Dueñas while he is away. The patient remains in Transitional Care Unit. The patient feels okay. Denies any chest pain or shortness of breath. The patient was able to ambulate a lot yesterday. PHYSICAL EXAMINATION: GENERAL: The patient is in no acute distress. VITAL SIGNS: Stable. HEART: S1 and S2, normal and regular. LUNGS: Good bilateral air exchange. ABDOMEN: Soft, nontender. EXTREMITIES: No edema. No calf swelling. No tenderness. No acute ischemia. CENTRAL NERVOUS SYSTEM: Essentially unchanged. DIAGNOSTIC DATA: Available diagnostic data reviewed. INR is 1.8. IMPRESSION: Overall, the patient's general medical condition is stable. PLAN: As ordered. Joel Redmond MD
[2016-11-23] MEDS: Cefepime 1 GM in Sodium Chloride 0.9% 100 ML IVPB SCH ×2 (04:55→16:26)
[2016-11-23] MEDS: Levothyroxine 175 MCG TAB PO SCH (05:58)
[2016-11-23 08:10] LABS: HEMATOCRIT 36.4 % (35.0-51.0); MEAN CELL VOLUME 99.8 fl (80.0-94.0); MEAN CORPUSCULAR HEMOGLOBIN 33.1 pg (27.0-31.0); MEAN CORPUSCULAR HGB CONC 33.2 g/dL (33.0-37.0); RED CELL DISTRIBUTION WIDTH 14.8 % (11.5-14.5)
[2016-11-23 08:22] LABS: ALB/GLOB RATIO 0.9 (1.0-2.1); ALKALINE PHOSPHATASE 78 U/L (38-126); ALT/SGPT 36 U/L (21-72); AST/SGOT 43 U/L (17-59); BILIRUBIN,TOTAL 0.7 mg/dl (0.2-1.3); BLOOD UREA NITROGEN 22 mg/dl (9-20); CALCIUM 9.3 mg/dL (8.4-10.2); CARBON DIOXIDE 28 mmol/L (22-30); CHLORIDE 103 mmol/L (98-107); GFR AFRICAN-AMERICAN > 60; GLUCOSE,RANDOM 88 mg/dL (75-110); POTASSIUM 4.2 MMOL/L (3.6-5.0); SODIUM 142 mmol/l (132-148)
[2016-11-23] MEDS: Digoxin 125 mcg (0.125 mg) Tab PO SCH (08:55)
[2016-11-23] MEDS: SILVASORB ANTIMICROBIAL WOUND GEL TP SCH (11:56)
--- NOTE | 2016-11-23 12:59 | CP.PCM.PN ---
Subjective - Date & Time of Evaluation Date of Evaluation: 11/23/16 Time of Evaluation: 12:57 - Subjective Subjective: Podiatry Progress Note - Dr. Martinez 81 year old male patient seen at bedside for right lateral leg ulceration. Patient appears to be resting comfortably in his bed. Patient is AAOx3 and in NAD. Patient denies any acute overnight events. Patient denies any pain to his right leg today. Patient states he is working with physical therapy and is ambulating without any issues. Patient denies of any recent F/N/V/C/SOB/CP/calf pain today. Patient denies of any pedal complaints at this time. Objective - Vital Signs/Intake and Output Vital Signs (last 24 hours): Temp Pulse Resp BP Pulse Ox 97.5 F L 72 18 131/74 96 11/23/16 08:00 11/23/16 08:00 11/23/16 08:00 11/23/16 08:00 11/23/16 08:00 - Medications Medications: Current Medications Cyanocobalamin (Vitamin B12 1000 Mcg Tab) 1,000 mcg PO DAILY [facility] Last Admin: 11/23/16 08:53 Dose: 1,000 mcg Digoxin (Lanoxin) 0.125 mg PO DAILY [facility] Last Admin: 11/23/16 08:55 Dose: 0.125 mg Docusate Sodium (Colace) 100 mg PO BID [facility] Last Admin: 11/23/16 08:52 Dose: 100 mg Cefepime HCl 1 gm/ Sodium (Chloride) 100 mls @ 100 mls/hr IVPB Q12@0500,1700 [facility] Last Admin: 11/23/16 04:55 Dose: 100 mls/hr Vancomycin HCl 500 mg/ Sodium (Chloride) 100 mls @ 100 mls/hr IVPB Q12@0500, 1700 [facility] Last Admin: 11/23/16 05:16 Dose: 100 mls/hr Levothyroxine Sodium (Synthroid) 175 mcg PO DAILY@0630 [facility] Last Admin: 11/23/16 05:58 Dose: 175 mcg Sennosides (Senokot Tab) 17.2 mg PO HS [facility] Last Admin: 11/22/16 21:38 Dose: 17.2 mg Warfarin Sodium (Coumadin) 5 mg PO ONCE ONE PRN Reason: Protocol Stop: 11/23/16 17:01 Warfarin Sodium (Coumadin) 2 mg PO 1700 ONE Stop: 11/23/16 17:01 - Labs Labs: 11/23/16 07:15 11/23/16 07:15 PT 15.9 Seconds (9.8-13.1) H 11/23/16 07:15 INR 1.4 (0.9-1.2) H 11/23/16 07:15 - Constitutional Appears: Well, Non-toxic, No Acute Distress - Extremities Exam Additional comments: VASC: DP and PT pulses non-palpable b/l. CFT <4 seconds to all digits. TG warm to cool from proximal to distal b/l. No edema noted to bilateral LE. DERM: Ulceration noted to the lateral aspect of lower 1/3 of the right leg measuring 3.0 x 2.5 x 0.2 cm - ulceration is noted to have 85% granular and 15% fibrotic base. No maceration noted periwound at this visit. Minimal serosanguinous drainage at this visit; no malodor, no purulence, no probe to bone, no undermining, no tunneling, no ascending cellulitis. Venous stasis dermatitis noted b/l. NEURO: Gross sensation diminished bilaterally. ORTHO: No tenderness to palpation RLE ulceration. Muscle strength 5/5 for all muscle groups b/l. - Neurological Exam Neurological Exam: Alert, Awake, Oriented x3 - Psychiatric Exam Psychiatric exam: Normal Affect, Normal Mood Assessment and Plan - Assessment and Plan (Free Text) Assessment: 1 year old male with right lower leg ulceration likely 2/2 venous stasis Plan: Patient seen and evaluated bedside Discussed with attending, Dr. Martinez Charts, labs, vitals reviewed = afebrile, WBC @ 8.0 Ulceration cleansed with sterile saline, Silvasorb applied, R leg dressed with DSD and MAHI Wound culture (Final): Klebsiella oxytoca, Pseudomonas Stutzeri, MRSA Continue abx - Cefepime, Vancomycin Patient is stable from podiatry standpoint Podiatry will continue to follow patient while in house Patient will follow up with Dr. Vergara in wound care 1 week s/p discharge for outpatient care
[2016-11-23 15:59] VITALS: RESP 20
[2016-11-24] MEDS: Cefepime 1 GM in Sodium Chloride 0.9% 100 ML IVPB SCH (04:18)
[2016-11-24] MEDS: Levothyroxine 175 MCG TAB PO SCH (06:06)
[2016-11-24] MEDS: SILVASORB ANTIMICROBIAL WOUND GEL TP SCH (08:25)
--- NOTE | 2016-11-24 08:26 | CP.PCM.PN ---
Subjective - Date & Time of Evaluation Date of Evaluation: 11/24/16 Time of Evaluation: 08:26 - Subjective Subjective: Podiatry Progress Note - Dr. Martinez 81 year old male patient seen at bedside for right lateral leg ulceration. Patient seen out of bed and in chair, AAOx3 and NAD. Patient denies any acute events overnight. Patient denies any pain to his right leg. Patient continues to work with physical therapy without any issues. Patient aware he is to follow up with Dr. Martinez in the wound care clinic next week. Patient denies N/V/F/D /C/SOB/calf pain. Offers no other pedal complaints at this time. Objective - Vital Signs/Intake and Output Vital Signs (last 24 hours): Temp Pulse Resp BP Pulse Ox 97.9 F 61 20 111/65 99 11/23/16 20:26 11/23/16 20:26 11/23/16 20:26 11/23/16 20:26 11/23/16 20:26 - Medications Medications: Current Medications Cyanocobalamin (Vitamin B12 1000 Mcg Tab) 1,000 mcg PO DAILY [facility] Last Admin: 11/23/16 08:53 Dose: 1,000 mcg Digoxin (Lanoxin) 0.125 mg PO DAILY [facility] Last Admin: 11/23/16 08:55 Dose: 0.125 mg Docusate Sodium (Colace) 100 mg PO BID [facility] Last Admin: 11/23/16 16:06 Dose: Not Given Cefepime HCl 1 gm/ Sodium (Chloride) 100 mls @ 100 mls/hr IVPB Q12@0500,1700 [facility] Last Admin: 11/24/16 04:18 Dose: 100 mls/hr Vancomycin HCl 500 mg/ Sodium (Chloride) 100 mls @ 100 mls/hr IVPB Q12@0500, 1700 [facility] Last Admin: 11/24/16 06:07 Dose: 100 mls/hr Levothyroxine Sodium (Synthroid) 175 mcg PO DAILY@0630 [facility] Last Admin: 11/24/16 06:06 Dose: 175 mcg Sennosides (Senokot Tab) 17.2 mg PO HS [facility] Last Admin: 11/23/16 22:56 Dose: 17.2 mg - Labs Labs: 11/23/16 07:15 11/23/16 07:15 PT 17.7 Seconds (9.8-13.1) H 11/24/16 05:47 INR 1.6 (0.9-1.2) H 11/24/16 05:47 - Constitutional Appears: Well, Non-toxic, No Acute Distress - Extremities Exam Additional comments: VASC: DP and PT pulses non-palpable b/l. CFT <3 seconds to all digits. TG wnl b/ l. No edema noted to bilateral LE. DERM: Ulceration noted to the lateral aspect of lower 1/3 of the right leg measuring 3.0 x 2.5 x 0.2 cm - ulceration is noted to have 85% granular and 15% fibrotic base. No maceration noted periwound at this visit. No drainage at this visit; no malodor, no purulence, no probe to bone, no undermining, no tunneling , no ascending cellulitis. Venous stasis dermatitis noted b/l. NEURO: Gross sensation diminished bilaterally. ORTHO: No tenderness to palpation RLE ulceration. Muscle strength 5/5 for all muscle groups b/l. - Neurological Exam Neurological Exam: Alert, Awake, Oriented x3 - Psychiatric Exam Psychiatric exam: Normal Affect, Normal Mood Assessment and Plan - Assessment and Plan (Free Text) Assessment: 81 year old male with right lower leg ulceration likely 2/2 venous stasis Plan: Patient seen and evaluated bedside Discussed with attending, Dr. Martinez Charts, labs, vitals reviewed = afebrile, WBC wnl @ 8.0 on 11/23 Ulceration cleansed with sterile saline, Silvasorb applied, R leg dressed with DSD and MAHI Wound culture (Final): Klebsiella oxytoca, Pseudomonas Stutzeri, MRSA Continue abx per ID - discontinued IV abx Vancomycin & Cefepime, start Bactrim PO BID Patient is stable from podiatry standpoint Podiatry will continue to follow patient while in house Patient to follow up with Dr. Vergara in wound care 1 week s/p discharge for outpatient care
[2016-11-24] MEDS: Digoxin 125 mcg (0.125 mg) Tab PO SCH (08:27)
--- NOTE | 2016-11-24 14:42 | CP.PCM.PN ---
Subjective - Date & Time of Evaluation Date of Evaluation: 11/24/16 Time of Evaluation: 14:40 - Subjective Subjective: I D NOTE HAVE DISCONTINUED IV ANTIBIOTICS(VANCOMYCIN and MAXIPEMNE) REVIEWED CULTURES ONCE AGAIN and HAVE STARTED ORAL BACTRIM DS BID RENAL FUNCTION IS WNL ON 11/23/16 Objective - Vital Signs/Intake and Output Vital Signs (last 24 hours): Temp Pulse Resp BP Pulse Ox 97.9 F 61 20 111/65 99 11/23/16 20:26 11/23/16 20:26 11/23/16 20:26 11/23/16 20:26 11/23/16 20:26 - Medications Medications: Current Medications Cyanocobalamin (Vitamin B12 1000 Mcg Tab) 1,000 mcg PO DAILY [facility] Last Admin: 11/24/16 08:26 Dose: 1,000 mcg Digoxin (Lanoxin) 0.125 mg PO DAILY [facility] Last Admin: 11/24/16 08:27 Dose: 0.125 mg Docusate Sodium (Colace) 100 mg PO BID [facility] Last Admin: 11/24/16 08:26 Dose: 100 mg Levothyroxine Sodium (Synthroid) 175 mcg PO DAILY@0630 [facility] Last Admin: 11/24/16 06:06 Dose: 175 mcg Sennosides (Senokot Tab) 17.2 mg PO HS [facility] Last Admin: 11/23/16 22:56 Dose: 17.2 mg Trimethoprim/Sulfamethoxazole (Bactrim Ds Tab) 1 tab PO Q12 [facility] - Labs Labs: 11/23/16 07:15 11/23/16 07:15 PT 17.7 Seconds (9.8-13.1) H 11/24/16 05:47 INR 1.6 (0.9-1.2) H 11/24/16 05:47
[2016-11-24] MEDS: Tmp-Smz 800 mg-160 mg DS Tab PO SCH (20:08)
[2016-11-25] MEDS: Levothyroxine 175 MCG TAB PO SCH (06:42)
--- NOTE | 2016-11-25 08:05 | CP.PCM.PN ---
Subjective - Date & Time of Evaluation Date of Evaluation: 11/25/16 Time of Evaluation: 08:03 - Subjective Subjective: Podiatry Progress Note - Dr. Martinez 81 year old male patient seen at bedside for right lateral leg ulceration. Patient seen out of bed and in chair, AAOx3 and NAD. Patient denies any acute events overnight. Patient denies any pain or swelling to right leg. Patient plans to follow up with Dr. Martinez in wound care clinic either this Thursday or next week Tuesday 12/05. Patient denies N/V/F/D/C/SOB/calf pain. Offers no other pedal complaints at this time. Objective - Vital Signs/Intake and Output Vital Signs (last 24 hours): Temp Pulse Resp BP Pulse Ox 97.5 F L 64 20 149/80 98 11/24/16 20:03 11/24/16 20:03 11/24/16 20:03 11/24/16 20:03 11/24/16 20:03 - Medications Medications: Current Medications Cyanocobalamin (Vitamin B12 1000 Mcg Tab) 1,000 mcg PO DAILY [facility] Last Admin: 11/24/16 08:26 Dose: 1,000 mcg Digoxin (Lanoxin) 0.125 mg PO DAILY [facility] Last Admin: 11/24/16 08:27 Dose: 0.125 mg Docusate Sodium (Colace) 100 mg PO BID [facility] Last Admin: 11/24/16 16:51 Dose: Not Given Levothyroxine Sodium (Synthroid) 175 mcg PO DAILY@0630 [facility] Last Admin: 11/25/16 06:42 Dose: 175 mcg Sennosides (Senokot Tab) 17.2 mg PO HS [facility] Last Admin: 11/24/16 21:02 Dose: Not Given Trimethoprim/Sulfamethoxazole (Bactrim Ds Tab) 1 tab PO Q12 [facility] Last Admin: 11/24/16 20:08 Dose: 1 tab - Labs Labs: 11/23/16 07:15 11/23/16 07:15 PT 19.5 Seconds (9.8-13.1) H 11/25/16 05:30 INR 1.7 (0.9-1.2) H 11/25/16 05:30 - Constitutional Appears: Well, Non-toxic, No Acute Distress - Extremities Exam Additional comments: VASC: DP and PT pulses non-palpable b/l. CFT <3 seconds to all digits. TG wnl b/ l. No edema noted to bilateral LE. DERM: Ulceration noted to the lateral aspect of lower 1/3 of the right leg measuring 3.0 x 2.5 x 0.2 cm - ulceration is noted to have 85% granular and 15% fibrotic base. No maceration noted periwound at this visit. No drainage at this visit; no malodor, no purulence, no probe to bone, no undermining, no tunneling , no ascending cellulitis. Venous stasis dermatitis noted b/l. NEURO: Gross sensation diminished bilaterally. ORTHO: No tenderness to palpation RLE ulceration. Muscle strength 5/5 for all muscle groups b/l. - Neurological Exam Neurological Exam: Alert, Awake, Oriented x3 - Psychiatric Exam Psychiatric exam: Normal Affect, Normal Mood Assessment and Plan - Assessment and Plan (Free Text) Assessment: 81 year old male with right lower leg ulceration likely 2/2 venous stasis Plan: Patient seen and evaluated bedside Discussed with attending, Dr. Martinez Charts, labs, vitals reviewed = afebrile Ulceration cleansed with sterile saline, Silvasorb applied, R leg dressed with DSD and MAHI Wound culture (Final): Klebsiella oxytoca, Pseudomonas Stutzeri, MRSA Continue abx per ID - discontinued IV abx Vancomycin & Cefepime, start Bactrim PO BID Patient is stable from podiatry standpoint Podiatry will continue to follow patient while in house Patient to follow up with Dr. Vergara in wound care within 1 week s/p discharge for outpatient care
[2016-11-25] MEDS: Tmp-Smz 800 mg-160 mg DS Tab PO SCH ×2 (08:35→20:33)
[2016-11-25] MEDS: Digoxin 125 mcg (0.125 mg) Tab PO SCH (08:36)
[2016-11-25] MEDS: SILVASORB ANTIMICROBIAL WOUND GEL TP SCH (09:03)
[2016-11-26] MEDS: Levothyroxine 175 MCG TAB PO SCH (05:30)
--- NOTE | 2016-11-26 08:13 | CP.PCM.PN ---
Subjective - Date & Time of Evaluation Date of Evaluation: 11/26/16 Time of Evaluation: 08:11 - Subjective Subjective: Podiatry Progress Note - Dr. Martinez 81 year old male patient seen at bedside for right lateral leg ulceration. Patient seen resting comfortably in bed, NAD. Patient denies any acute events overnight. Patient denies any pain or swelling to right leg. Patient states he will be discharged today, and is aware he is to follow up with Dr. Martinez in the wound care clinic on an outpatient basis. Patient denies N/V/F/D/C/SOB/calf pain. Offers no other pedal complaints at this time. Objective - Vital Signs/Intake and Output Vital Signs (last 24 hours): Temp Pulse Resp BP Pulse Ox 97.7 F 60 20 113/58 L 98 11/25/16 20:05 11/25/16 20:05 11/25/16 20:05 11/25/16 20:05 11/25/16 20:05 - Medications Medications: Current Medications Cyanocobalamin (Vitamin B12 1000 Mcg Tab) 1,000 mcg PO DAILY [facility] Last Admin: 11/25/16 08:36 Dose: 1,000 mcg Digoxin (Lanoxin) 0.125 mg PO DAILY [facility] Last Admin: 11/25/16 08:36 Dose: 0.125 mg Docusate Sodium (Colace) 100 mg PO BID [facility] Last Admin: 11/25/16 16:04 Dose: Not Given Levothyroxine Sodium (Synthroid) 175 mcg PO DAILY@0630 [facility] Last Admin: 11/26/16 05:30 Dose: 175 mcg Sennosides (Senokot Tab) 17.2 mg PO HS [facility] Last Admin: 11/25/16 21:18 Dose: Not Given Trimethoprim/Sulfamethoxazole (Bactrim Ds Tab) 1 tab PO Q12 [facility] Last Admin: 11/25/16 20:33 Dose: 1 tab - Labs Labs: 11/23/16 07:15 11/23/16 07:15 PT 19.5 Seconds (9.8-13.1) H 11/26/16 04:00 INR 1.7 (0.9-1.2) H 11/26/16 04:00 - Constitutional Appears: Well, Non-toxic, No Acute Distress - Extremities Exam Additional comments: VASC: DP and PT pulses non-palpable b/l. CFT <3 seconds to all digits. TG wnl b/ l. No edema noted to bilateral LE. DERM: Ulceration noted to the lateral aspect of lower 1/3 of the right leg measuring 3.0 x 2.5 x 0.2 cm - ulceration is noted to have 85% granular and 15% fibrotic base. No maceration noted periwound at this visit. No drainage at this visit; no malodor, no purulence, no probe to bone, no undermining, no tunneling , no ascending cellulitis. Venous stasis dermatitis noted b/l. NEURO: Gross sensation diminished bilaterally. ORTHO: No tenderness to palpation RLE ulceration. Muscle strength 5/5 for all muscle groups b/l. - Neurological Exam Neurological Exam: Alert, Awake, Oriented x3 - Psychiatric Exam Psychiatric exam: Normal Affect, Normal Mood Assessment and Plan - Assessment and Plan (Free Text) Assessment: 81 year old male with right lower leg ulceration likely 2/2 venous stasis Plan: Patient seen and evaluated bedside Discussed with attending, Dr. Martinez Charts, labs, vitals reviewed = afebrile Ulceration cleansed with sterile saline, Silvasorb applied, R leg dressed with DSD Wound culture (Final): Klebsiella oxytoca, Pseudomonas Stutzeri, MRSA Continue abx per ID - Bactrim PO BID Patient is stable from podiatry standpoint Podiatry will continue to follow patient while in house Patient to follow up with Dr. Vergara in wound care within 1 week s/p discharge for outpatient care
[2016-11-26 08:32] VITALS: BP 114/67; PULSE 66; TEMP 98.1; O2SAT 95
[2016-11-26] MEDS: Digoxin 125 mcg (0.125 mg) Tab PO SCH (08:45)
[2016-11-26] MEDS: Tmp-Smz 800 mg-160 mg DS Tab PO SCH (08:45)
[2016-11-26 08:46] VITALS: PULSE 66
[2016-11-26] MEDS: SILVASORB ANTIMICROBIAL WOUND GEL TP SCH (08:46)
== END 2016-11-26 12:45 | disposition home or self-care (01) | DRG 949 ==
LOC: H.TCU 11-14 16:55
PROVIDERS: ADMIT Family Medicine; ATTEND Family Medicine
PROC: F07Z9FZ Gait Training/Functional Ambulation Treatment using Assistive, Adaptive, Supportive or Protective Equipment (ICD-10-PCS; principal; 2016-11-14)
PROC: F07Z8FZ Transfer Training Treatment using Assistive, Adaptive, Supportive or Protective Equipment (ICD-10-PCS; 2016-11-14)
PROC: F07L6FZ Therapeutic Exercise Treatment of Musculoskeletal System - Lower Back / Lower Extremity using Assistive, Adaptive, Supportive or Protective Equipment (ICD-10-PCS; 2016-11-14)
PROC: F08Z1FZ Dressing Techniques Treatment using Assistive, Adaptive, Supportive or Protective Equipment (ICD-10-PCS; 2016-11-14)
PROC: F08Z0FZ Bathing/Showering Techniques Treatment using Assistive, Adaptive, Supportive or Protective Equipment (ICD-10-PCS; 2016-11-14)
PROC: F07K6FZ Therapeutic Exercise Treatment of Musculoskeletal System - Upper Back / Upper Extremity using Assistive, Adaptive, Supportive or Protective Equipment (ICD-10-PCS; 2016-11-14)
DX: Z48.812 Encounter for surgical aftercare following surgery on the circulatory system (principal); L97.919 Non-pressure chronic ulcer of unspecified part of right lower leg with unspecified severity; I11.0 Hypertensive heart disease with heart failure; I50.9 Heart failure, unspecified; Z87.891 Personal history of nicotine dependence; E03.9 Hypothyroidism, unspecified; E78.00 Pure hypercholesterolemia, unspecified; I87.8 Other specified disorders of veins; K59.00 Constipation, unspecified; R26.9 Unspecified abnormalities of gait and mobility; I48.91 Unspecified atrial fibrillation; B96.1 Klebsiella pneumoniae [K. pneumoniae] as the cause of diseases classified elsewhere; B95.62 Methicillin resistant Staphylococcus aureus infection as the cause of diseases classified elsewhere

== ENCOUNTER 2016-11-17 14:56 | Day surgery (SDC) | payer MEDICARE ==
[2016-11-17 09:23] VITALS: PULSE 61
[2016-11-17 15:14] VITALS: BMI 31.3
[2016-11-17] MEDS ORDERED: Lidocaine 1% Inj (20ml) ONE (15:28)
--- NOTE | 2016-11-17 15:42 | CP.SDSHP ---
Same Day Surgery H & P - History Proposed Procedure: PICC Placement Pre-Op Diagnosis: Infection requiring IV abx - Allergies Allergies: Allergies No Known Allergies Allergy (Verified 11/14/16 16:55) RASH - Physical Exam Vital Signs: Vital Signs 11/17/16 15:22 Temperature 97.3 F L Pulse Rate 73 Respiratory 20 Rate Blood Pressure 155/81 H O2 Sat by Pulse 95 Oximetry Mental Status: Alert & Oriented x3 - Impression Impression: Pt requiring terminal clerk IV abx. Plan PICC placement for antibiotics. Pt. Evaluated Today:Candidate for Anesthesia & Procedure: No Short Stay Discharge - Short Stay Discharge Admitting Diagnosis/Reason for Visit: IV ABT Disposition: REHAB FACILITY/REHAB UNIT Referrals: Nabor Dueñas MD [Primary Care Provider] -
--- NOTE | 2016-11-17 15:45 | PCM.SURG1 ---
Surgeon's Initial Post Op Note - Surgeon's Notes Surgeon: Melchor Cruz MD Furnace Installer: NONE Type of Anesthesia: Local Pre-Operative Diagnosis: Infection requiring IV abx Operative Findings: Patent right basilic vein. Post-Operative Diagnosis: Infection requiring IV abx Operation Performed: Single lumen picc placement right basilic vein, 37 cm. Tip is in the SVC. Specimen/Specimens Removed: None Estimated Blood Loss: EBL {In ML}: 2 Blood Products Given: N/A Drains Used: No Drains Post-Op Condition: Fair Date of Surgery/Procedure: 11/17/16 Time of Surgery/Procedure: 15:45
[2016-11-17 16:39] VITALS: BP 166/89; PULSE 61; RESP 20; TEMP 97.5; O2SAT 97
--- NOTE | 2016-11-19 15:21 | VASCULAR ---
PROCEDURE: Date of procedure: 11/17/2016 Procedure: 1. Placement of a right arm PICC with ultrasound and fluoroscopic guidance, CPT 71654 2. PICC tip confirmation with spot radiograph and is in the superior vena cava Medications: 3cc 1 percent lidocaine Total Fluoro time: 3.6 seconds Radiation: 0.52 MGy EBL: 2 cc HISTORY: Infection requiring long-term IV antibiotics TECHNIQUE: Following informed consent and procedure time-out, the patient was placed supine on the interventional table and the right arm prepped and draped in the usual sterile fashion. Ultrasound showed a patent and compressible right basilic vein. After the skin was anesthetized with lidocaine, the basilic vein was accessed with micro micropuncture technique using ultrasound guidance. A guidewire was then advanced under fluoroscopic guidance into the superior vena cava. An image documenting ultrasound guidance for vascular access was permanently saved. The length of the single-lumen 4 Khmer PICC was trimmed to 39 centimeters and advanced through a peel-away sheath. The PICC was position with tip of PICC confirm a spot radiograph the superior vena cava. The PICC was secured to the patient's skin. The PICC was flushed. A biopatch and sterile dressing was applied. IMPRESSION: Placement of a single-lumen 4 Khmer PICC trimmed to 39 centimeters via right basilic vein. The tip of the PICC is confirmed with spot radiograph and is in the superior vena cava.
--- NOTE | 2016-11-26 15:36 | CP.PCM.DIS ---
Provider - Provider Attending physician: Nabor Dueñas MD Primary care physician: Nabor Dueñas MD Time Spent in preparation of Discharge (in minutes): 30 Diagnosis - Discharge Diagnosis (1) Leg ulcer Status: Acute Hospital Course - Hospital Course Hospital Course: 81 YO M w/ multiple medical conditions was most recently in TCU recieving IV antibiotics for a wound on his right lower leg which showed positive cultures for Klebsiella, Psuedomonas, MRSA. ID was consulted patient received Vancomycin and Cefepime. He is being discharged on Bactrim PO BID x 10 days. Follow up with Dr. Davenport at 1 pm and Follow up with Dr. Dueñas on Thursday at 1 pm Discharge Exam - Head Exam Head Exam: NORMAL INSPECTION - Eye Exam Eye Exam: Normal appearance - Respiratory Exam Respiratory Exam: Clear to PA & Lateral, NORMAL BREATHING PATTERN - Cardiovascular Exam Cardiovascular Exam: REGULAR RHYTHM, +S1, +S2 - GI/Abdominal Exam GI & Abdominal Exam: Normal Bowel Sounds, Unremarkable - Neurological Exam Neurological exam: Alert, CN II-XII Intact, Oriented x3 - Skin Skin Exam: Normal Color, Warm Discharge Plan - Follow Up Plan Condition: GOOD Disposition: REHAB FACILITY/REHAB UNIT Referrals: Nabor Dueñas MD [Primary Care Provider] -
== END 2016-11-17 18:00 ==
LOC: H.OPSURG 14:56
PROVIDERS: ATTEND Family Medicine
DX: L97.919 Non-pressure chronic ulcer of unspecified part of right lower leg with unspecified severity (principal); I10 Essential (primary) hypertension; Z88.0 Allergy status to penicillin; Z22.322 Carrier or suspected carrier of Methicillin resistant Staphylococcus aureus; B96.1 Klebsiella pneumoniae [K. pneumoniae] as the cause of diseases classified elsewhere; B96.5 Pseudomonas (aeruginosa) (mallei) (pseudomallei) as the cause of diseases classified elsewhere
CPT/HCPCS: 36569; 76937; 77001; A4310; C1751

== ENCOUNTER 2017-08-03 20:32 | Inpatient (IN) | payer MEDICARE ==
[2017-08-03 20:33] VITALS: BMI 31.3
--- NOTE | 2017-08-03 22:39 | ED PDOC ---
HPI: SOB/CHF/COPD Time Seen by Provider: 08/03/17 21:00 Chief Complaint (Nursing): Shortness Of Breath Chief Complaint (Provider): diarrhea and SOB History Per: Patient, Family (2 granddaughters) History/Exam Limitations: no limitations Onset/Duration Of Symptoms: Days (x1 week) Current Symptoms Are (Timing): Still Present Associated Symptoms: Other (diarrhea) Additional Complaint(s): Nabeel Moody is an 82 year old male, with a past medical history of hypertension, CAD, CHF and A-fib (on coumadin), who presents to the emergency department with her x2 granddaughters complaining of diarrhea and intermittent shortness of breath onset for x1 week. Patient reports perfused diarrhea to the point of just liquid. No recent use of antibiotics. She reports intermittent shortness of breath but denies any abdominal pain or vomiting. 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 Patient has a pacemaker in place. No further medical complaints. PMD: Nabor Dueñas Past Medical History Reviewed: Historical Data, Nursing Documentation, Vital Signs Vital Signs: Last Vital Signs Temp 97.5 F L 08/05/17 08:17 Pulse 60 08/05/17 08:17 Resp 20 08/05/17 08:17 BP 109/75 08/05/17 08:17 Pulse Ox 97 08/05/17 08:17 - Medical History PMH: Atrial Fibrillation, CAD, Cardia Arrhythmia (bradycardia), CHF, HTN, Hypothyroidism Denies: HIV, Chronic Kidney Disease - Surgical History Surgical History: Pacemaker, Tonsillectomy - Family History Family History: States: No Known Family Hx - Social History Ex-Smoker (has not smoked in the last 12 months): Yes Alcohol: None - Home Medications Home Medications: Ambulatory Orders Medication Instructions Recorded Calcium Carbonate/Vitamin D3 1 each PO BID 08/04/17 [Caltrate 600 + D Soft Chew Tab] Cyanocobalamin [Vitamin B12 100 250 mcg PO DAILY 08/04/17 mcg Tab] Digoxin [Digitek] 125 mcg PO DAILY 08/04/17 Digoxin [Digitek] 125 mcg PO DAILY 08/04/17 Levothyroxine [Synthroid] 175 mcg PO DAILY 08/04/17 Warfarin [Coumadin] 2.5 mg PO DAILY 08/04/17 Warfarin [Coumadin] 5 mg PO DAILY 08/04/17 - Allergies Allergies/Adverse Reactions: Allergies Allergy/AdvReac Type Severity Reaction Status Date / Time No Known Allergies Allergy RASH Verified 08/03/17 20:46 Review of Systems ROS Statement: Except As Marked, All Systems Reviewed And Found Negative Respiratory: Positive for: Shortness of Breath (intermittent) Gastrointestinal: Positive for: Diarrhea. Negative for: Vomiting, Abdominal Pain Physical Exam - Reviewed Nursing Documentation Reviewed: Yes - Physical Exam Appears: Positive for: Well, Non-toxic, No Acute Distress Head Exam: Positive for: ATRAUMATIC, NORMAL INSPECTION Skin: Positive for: Normal Color, Warm, Dry Neck: Positive for: Normal Cardiovascular/Chest: Positive for: Regular Rate, Rhythm Respiratory: Positive for: Normal Breath Sounds Gastrointestinal/Abdominal: Positive for: Normal Exam Extremity: Positive for: Normal ROM Neurologic/Psych: Positive for: Alert, Oriented - Laboratory Results Result Diagrams: 08/03/17 22:31 08/03/17 22:31 - ECG Rate: 70 (Paced) O2 Sat by Pulse Oximetry: 95 (RA) Pulse Ox Interpretation: Normal - Radiology X-Ray: Interpreted by Me, Viewed By Me X-Ray Interpretation: Other (Unchanged from previous) Medical Decision Making Medical Decision Making: Time: 21:22 Initial Impression: diarrhea Initial Plan: --CMP --CBC w/ differential --Chest portable [RAD] --Blood culture --Ova and Parasite --Stool culture --Urine culture --C Diff Toxin A B --Urinalysis --Reevaluation 0026 * [facility] stool 0102 Labs reviewed: indicative of worsening renal function in comparison to labs drawn in 2017. * CT A/P 0130 CXR: unchanged from previous 0306 CT A/P FINDINGS: Lung bases: There is bibasilar atelectasis. Heart: Cardiomegaly. Mediastinum: Small hiatal hernia. ABDOMEN: Liver: Unremarkable. Gallbladder and bile ducts: Unremarkable. No ductal dilation. Pancreas: Unremarkable. No ductal dilation. Spleen: Deformed spleen. Correlation with patient's clinical history is recommended. Adrenals: Unremarkable. No mass. Kidneys and ureters: Bilateral extrarenal pelvis with physiologic distention of the ureters or upper left more than right. There is left UVJ bladder stone versus calcified sludge. No hydronephrosis. Stomach and bowel: There is 25 cm gastric distention without duodenal distention likely due to recent ingestion versus delayed emptying. Correlation with clinical data is recommended if gastroparesis versus gastric outlet obstruction is clinically suspected. There are nonspecific fluid filled small bowel loops and right colon. These findings can represent ileus versus enterocolitis versus slow transit versus peristalsis. PELVIS: Appendix: Normal appendix. Bladder: Left bladder stone versus calcified sludge seen on image 128 series 3. Partially distended bladder with bladder wall thickening. Correlation with urinalysis is recommended only if clinical cystitis is suspected. Reproductive: Enlarged prostate gland. ABDOMEN and PELVIS: Intraperitoneal space: Unremarkable. No free air. No significant fluid collection. Bones/joints: No acute fracture. No dislocation. Soft tissues: Bilateral inguinal herniation of fat. Vasculature: Infrarenal IVC filter. The aorta demonstrates calcified plaque and is mildly ectatic but normal in caliber. No abdominal aortic aneurysm. Lymph nodes: Unremarkable. No enlarged lymph nodes. Tubes, lines and devices: There are cardiac leads from a cardiac rhythm maintenance device. IMPRESSION: 1. There is 25 cm gastric distention without duodenal distention likely due to recent ingestion versus delayed emptying. Correlation with clinical data is recommended if gastroparesis versus gastric outlet obstruction is clinically suspected. 2. There are nonspecific fluid filled small bowel loops and right colon. These findings can represent ileus versus enterocolitis versus slow transit versus peristalsis. Correlation with internal medicine evaluation and further workup or followup as recommended by patient's clinical data. * BNP [address] Dueñas in the morning for admission for worsening renal insufficiency r/o C DIFF. Patient is resting comfortably in room. Vitals stable. [address] Dueñas, who accepts patient under his care (INPATIENT MED/SURG) for diarrhea r/o C DIFF and worsening renal insufficiency. Pending Trop and BNP and pt/ptt. * PT/INR 0515 Lab reviewed: BNP is elevated. 0547 INR pending * UA ----- Scribe Attestation: Documented by Jay Warren and Sophie Rodriguez, acting as a scribe for Mi Gomez MD. Provider Scribe Attestation: All medical record entries made by the Scribe were at my direction and personally dictated by me. I have reviewed the chart and agree that the record accurately reflects my personal performance of the history, physical exam, medical decision making, and the department course for this patient. I have also personally directed, reviewed, and agree with the discharge instructions and disposition. Disposition - Clinical Impression Clinical Impression: Coagulopathy, Chronic a-fib, Diarrhea - Patient ED Disposition Is Patient to be Admitted: Yes - Disposition Disposition Time: 05:00 Condition: STABLE - Pt Status Changed To: Hospital Disposition Of: Inpatient (INPATIENT MED/SURG) - Admit Certification Admit to Inpatient:: After my assessment, the patient will require hospitalization for at least two midnights. This is because of the severity of symptoms shown, intensity of services needed, and/or the medical risk in this patient being treated as an outpatient.
[2017-08-03 22:55] LABS: BASO % 0.2 % (0.0-2.0); HEMOGLOBIN 15.7 g/dL (12.0-18.0); LYMPH # 1.2 K/uL (1.0-4.3); LYMPH % 12.6 % (20.0-40.0); MEAN CELL VOLUME 97.4 fl (80.0-94.0); MEAN CORPUSCULAR HEMOGLOBIN 32.1 pg (27.0-31.0); MEAN CORPUSCULAR HGB CONC 32.9 g/dL (33.0-37.0); MEAN PLATELET VOLUME 8.7 fl (7.2-11.7); MONO # 0.8 K/uL (0.0-0.8); MONO % 8.8 % (0.0-10.0); NEUT # 7.2 K/uL (1.8-7.0); NEUT % 78.4 % (50.0-75.0); RBC 4.88 Mil/uL (4.40-5.90); RED CELL DISTRIBUTION WIDTH 15.4 % (11.5-14.5); WHITE BLOOD COUNT 9.2 K/uL (4.8-10.8)
[2017-08-03 23:05] LABS: CALCIUM 8.1 mg/dL (8.4-10.2)
[2017-08-03 23:06] LABS: ALB/GLOB RATIO 0.9 (1.0-2.1); ALBUMIN 3.9 g/dL (3.5-5.0)
[2017-08-04 05:08] LABS: TROPONIN I 0.043 ng/mL (0.00-0.120)
[2017-08-04 06:12] LABS: SQUAMOUS EPITHIAL 4 /hpf (0-5); URINE BACTERIA RARE (<OCC); URINE BILIRUBIN NEGATIVE (NEGATIVE); URINE BLOOD MODERATE (NEGATIVE); URINE CLARITY CLOUDY (Clear); URINE COLOR AMBER (YELLOW); URINE GLUCOSE (UA) NEG (Normal); URINE LEUKOCYTE ESTERASE NEG Leu/uL (Negative); URINE PROTEIN 30 mg/dL (NEGATIVE); URINE UROBILINOGEN 0.2-1.0 mg/dL (0.2-1.0)
[2017-08-04 06:33] LABS: INR 7.5 (0.9-1.2); PROTHROMBIN TIME 86.8 Seconds (9.8-13.1)
--- NOTE | 2017-08-04 09:05 | RAD ---
HISTORY: Shortness of breath COMPARISON: 11/09/2016 FINDINGS: LUNGS: No active pulmonary disease. PLEURA: No significant pleural effusion identified, no pneumothorax apparent. CARDIOVASCULAR: Cardiomegaly. No evidence of acute, significant cardiovascular disease. Position/ configuration of pacemaker Satisfactory. OSSEOUS STRUCTURES: No significant abnormalities. VISUALIZED UPPER ABDOMEN: Normal. OTHER FINDINGS: None. IMPRESSION: No active disease. No significant interval change compared to the prior examination(s).
[2017-08-04] MEDS ORDERED: Phytonadione 10 mg/ml Inj (Adult) IV ONE (10:53)
[2017-08-04] MEDS ORDERED: Phytonadione 10 mg/ml Inj (Adult) ONE (10:59)
[2017-08-04] MEDS ORDERED: Phytonadione 10 MG in Sodium Chloride 0.9% 50 ML IV ONE (11:15)
[2017-08-04] MEDS: Dextrose 5%/0.45% NS 1,000 ML IV SCH (12:09)
--- NOTE | 2017-08-04 13:18 | CT ---
PROCEDURE: CT Abdomen and Pelvis without intravenous contrast HISTORY: abd pain COMPARISON: None. TECHNIQUE: Without contrast.. Contrast dose: 0 Radiation dose: Total exam DLP = 613.73 mGy-cm. This CT exam was performed using one or more of the following dose reduction techniques: Automated exposure control, adjustment of the mA and/or kV according to patient size, and/or use of iterative reconstruction technique. FINDINGS: LOWER THORAX: 12 mm nodular pleural-based thickening at posterior left lung base with adjacent linear scar. Most likely postinflammatory. Nevertheless, follow-up advised with noncontrast chest CT in 3-6 months. Cardiomegaly. Permanent pacemaker. LIVER: Unremarkable. No gross lesion or ductal dilatation. GALLBLADDER AND BILE DUCTS: Gallbladder not visualized. Possible prior cholecystectomy. PANCREAS: Unremarkable. No gross lesion or ductal dilatation. SPLEEN: Normal size. Lobulated contour likely reflects developmental variant. No mass. ADRENALS: Unremarkable. No mass. KIDNEYS AND URETERS: Unremarkable kidneys. Mild left hydroureter. Calculus at left ureterovesical junction, 11 mm in greatest dimension, measured off coronal imaging. VASCULATURE: No evidence of abdominal aortic aneurysm. Inferior vena caval filter noted. BOWEL: Mild gastric distention with food content. Rule out gastroparesis or gastric outlet obstruction. No bowel obstruction elsewhere. No abnormal bowel loops. Fluid content of large portion of the colon incidentally noted. APPENDIX: Unremarkable. Normal appendix. PERITONEUM: Unremarkable. No free fluid. No free air. LYMPH NODES: Unremarkable. No enlarged lymph nodes. BLADDER: Unremarkable. REPRODUCTIVE: Unremarkable prostate BONES: No acute fracture. OTHER FINDINGS: None. IMPRESSION: 11 mm calculus at left ureterovesical junction with mild hydroureter but no hydronephrosis. Incidental 12 mm nodular pleural-based thickening at posterior left lung base for which followup noncontrast chest CT is advised in 3-6 months. Mild gastric distention. Rule out gastroparesis or gastric outlet obstruction. Preliminary interpretation of this examination was reported by [employer] at 3:05 a.m. on 08/04/2017. There is concurrence of this report with the preliminary interpretation.
[2017-08-04] MEDS: Calcium-Vit D 500 mg-200 Units Tab UD PO SCH (16:58)
--- NOTE | 2017-08-04 18:51 | CP.PCM.HP ---
History of Present Illness - History of Present Illness History of Present Illness: 82 yr old M presented to ED with complaint of diarrhea and SOB x 1 week. Denies nausea, vomiting, abdominal pain, weakness or dizziness. PMHx includes Atrial fibrillation, CAD, Bradycardia, CHF, Hypothyroidism. PMD: Dr. Dueñas PMHx: Atrial fibrillation s/p pacemaker, CAD, Bradycardia, CHF with preserved EF , Hypothyroidism SurgHx: pacemaker FMHx: noncontributory SocHx: denies tobacco, Etoh or drugs Medications: Warfarin 5 mg PO every other day, Vit B12, Digoxing 125 mcg PO QD, Levothyroxine 175mcg PO QD, Calcium carbonate/Vit D3, Colace , Sennosides Allergies: NKDA ED course: BP 107/63 mmHg, HR 70, Resp 16, O2 sat 95% on room air, Temp 98.1 F, -EKG: ventricular paced at 70 bpm -CXR: no active disease -CBC: WBC 9.2, H/H 15.7/47.6, plts 184 -CMP: Na 135, K+ 4.2, Cl 105, HCO3 12, Anion gap 22, BUN 54/ Cr 2.8, eGFR 22, AST 51, ALT 27 -PT 86.8, INR 7.5 -Digoxin 0.6 -pro-BNP 3960 -troponin 0.0430 -Urinalysis: moderate blood, hyaline casts 6-10 -Blood culture, urine culture, C. Diff toxin A B, Stool culture, Ova and parasite -Abd/Pelvis CT: mild gastric distention with food content, r/o gastroparesis or gastric outlet obstruction, 11mm calculus at left ureterovesical junction with mild hydroureter but no nephrosis Present on Admission - Present on Admission Any Indicators Present on Admission: No History of DVT/PE: No History of Uncontrolled Diabetes: No Urinary Catheter: No Decubitus Ulcer Present: No History Surgical Site Infection Following: None Review of Systems - Constitutional Constitutional: absent: Chills, Headache - EENT Ears: absent: Ear Discharge, Dizziness Nose/Mouth/Throat: absent: Sore Throat - Cardiovascular Cardiovascular: Dyspnea. absent: Chest Pain - Respiratory Respiratory: Dyspnea. absent: Hemoptysis - Gastrointestinal Gastrointestinal: Diarrhea. absent: Nausea, Vomiting - Genitourinary Genitourinary: absent: Difficulty Urinating, Dysuria - Musculoskeletal Musculoskeletal: absent: Arthralgias - Integumentary Integumentary: absent: Rash, Wounds - Neurological Neurological: absent: Confusion, Dizziness - Psychiatric Psychiatric: absent: Confusion, Suicidal Ideation - Endocrine Endocrine: absent: Polydipsia, Polyphagia, Polyuria - Hematologic/Lymphatic Hematologic: absent: Easy Bleeding, Easy Bruising Past Patient History - Past Medical History & Family History Past Medical History?: Yes - Past Social History Smoking Status: Never Smoked Alcohol: None Drugs: Denies - CARDIAC Hx Cardiac Disorders: Yes Hx Atrial Fibrillation: Yes Hx Cardia Arrhythmia: Yes (bradycardia) Hx Congestive Heart Failure: Yes Hx Hypertension: Yes Hx Pacemaker: Yes - PULMONARY Hx Respiratory Disorders: No - NEUROLOGICAL Hx Neurological Disorder: No - HEENT Hx HEENT Problems: No - RENAL Hx Chronic Kidney Disease: No - ENDOCRINE/METABOLIC Hx Endocrine Disorders: Yes Hx Hypothyroidism: Yes - HEMATOLOGICAL/ONCOLOGICAL Hx Blood Disorders: No Hx AIDS: No Hx Human Immunodeficiency Virus (HIV): No - INTEGUMENTARY Hx Dermatological Problems: No - MUSCULOSKELETAL/RHEUMATOLOGICAL Hx Musculoskeletal Disorders: Yes Hx Falls: Yes - GASTROINTESTINAL Hx Gastrointestinal Disorders: No - GENITOURINARY/GYNECOLOGICAL Hx Genitourinary Disorders: No - PSYCHIATRIC Hx Psychophysiologic Disorder: No Hx Emotional Abuse: No Hx Physical Abuse: No Hx Substance Use: No - SURGICAL HISTORY Hx Surgeries: Yes Hx Tonsillectomy: Yes - ANESTHESIA Hx Anesthesia: Yes Hx Anesthesia Reactions: No Hx Malignant Hyperthermia: No Has any member of the family had a problem w/ anesthesia?: No Meds Allergies/Adverse Reactions: Allergies Allergy/AdvReac Type Severity Reaction Status Date / Time No Known Allergies Allergy RASH Verified 08/03/17 20:46 Physical Exam - Constitutional Appears: Chronically Ill - Head Exam Head Exam: ATRAUMATIC, NORMOCEPHALIC - Eye Exam Eye Exam: EOMI, PERRL - ENT Exam ENT Exam: Mucous Membranes Moist - Neck Exam Neck exam: Positive for: Full Rom. Negative for: Lymphadenopathy - Respiratory Exam Respiratory Exam: Rales, Rhonchi (bilateral lower lobes), NORMAL BREATHING PATTERN - Cardiovascular Exam Cardiovascular Exam: REGULAR RHYTHM, +S1, +S2 - GI/Abdominal Exam GI & Abdominal Exam: Normal Bowel Sounds, Soft (obese). absent: Tenderness - Extremities Exam Extremities exam: Positive for: full ROM, pedal pulses present. Negative for: normal inspection (chronic venous stasis changes) - Back Exam Back exam: absent: CVA tenderness (L), CVA tenderness (R) - Neurological Exam Neurological exam: Alert, Oriented x3 - Psychiatric Exam Psychiatric exam: Normal Affect, Normal Mood - Skin Skin Exam: Dry, Warm Results - Vital Signs Recent Vital Signs: Last Vital Signs Temp 98.1 F 08/04/17 16:15 Pulse 60 08/04/17 17:25 Resp 16 08/04/17 17:25 BP 119/76 08/04/17 16:15 Pulse Ox 98 08/04/17 17:25 - Labs Result Diagrams: 08/03/17 22:31 08/03/17 22:31 Labs: Laboratory Results - last 24 hr 08/03/17 08/03/17 08/04/17 22:31 22:31 05:51 WBC 9.2 RBC 4.88 Hgb 15.7 D Hct 47.6 MCV 97.4 H D MCH 32.1 H MCHC 32.9 L RDW 15.4 H Plt Count 184 MPV 8.7 Neut % (Auto) 78.4 H Lymph % (Auto) 12.6 L Cuming % (Auto) 8.8 Eos % (Auto) 0.0 Baso % (Auto) 0.2 Neut # (Auto) 7.2 H Lymph # (Auto) 1.2 Cuming # (Auto) 0.8 Eos # (Auto) 0.0 Baso # (Auto) 0.0 PT INR Sodium 135 Potassium 4.2 Chloride 105 Carbon Dioxide 12 L Anion Gap 22 H BUN 54 H Creatinine 2.8 H Est GFR ( Amer) 26 Est GFR (Non-Af Amer) 22 Random Glucose 82 Calcium 8.1 L Total Bilirubin 1.0 AST 51 ALT 27 Alkaline Phosphatase 62 Troponin I 0.0430 NT-Pro-B Natriuret Pep 3960 H Total Protein 8.3 H Albumin 3.9 Globulin 4.4 H Albumin/Globulin Ratio 0.9 L Urine Color Kandice Urine Clarity Cloudy Urine pH 5.0 Ur Specific Bono 1.020 Urine Protein 30 Urine Glucose (UA) Neg Urine Ketones Negative Urine Blood Moderate Urine Nitrate Negative Urine Bilirubin Negative Urine Urobilinogen 0.2-1.0 Ur Leukocyte Esterase Neg Urine RBC (Auto) 21 H Urine Microscopic WBC 4 Ur Squamous Epith Cells 4 Urine Bacteria Rare Hyaline Casts 6-10 H 08/04/17 05:57 WBC RBC Hgb Hct MCV MCH MCHC RDW Plt Count MPV Neut % (Auto) Lymph % (Auto) Cuming % (Auto) Eos % (Auto) Baso % (Auto) Neut # (Auto) Lymph # (Auto) Cuming # (Auto) Eos # (Auto) Baso # (Auto) PT 86.8 H* INR 7.5 H Sodium Potassium Chloride Carbon Dioxide Anion Gap BUN Creatinine Est GFR ( Amer) Est GFR (Non-Af Amer) Random Glucose Calcium Total Bilirubin AST ALT Alkaline Phosphatase Troponin I NT-Pro-B Natriuret Pep Total Protein Albumin Globulin Albumin/Globulin Ratio Urine Color Urine Clarity Urine pH Ur Specific Bono Urine Protein Urine Glucose (UA) Urine Ketones Urine Blood Urine Nitrate Urine Bilirubin Urine Urobilinogen Ur Leukocyte Esterase Urine RBC (Auto) Urine Microscopic WBC Ur Squamous Epith Cells Urine Bacteria Hyaline Casts Assessment & Plan - Assessment and Plan (Free Text) Assessment: 82 yr old M admitted for coumadin toxicity, diarrhea and CHF exacerbation with PMHx including Atrial fibrillation s/p pacemaker, CAD, Bradycardia, CHF with preserved EF, Hypothyroidism. 1. Coumadin toxicity -acute, INR 7.5 -hold Coumadin -administered Vitamin K 10mg IVP -Admit to telemetry, cardiac monitoring, fall precautions -f/u repeat INR 2. Diarrhea -acute, persistent -f/u C-diff, sent -contact isolation -afebrile, no leukocytosis -mild gastric distention with food content, r/o gastroparesis or gastric outlet obstruction: seen on Abd/Pelvis CT -monitor I & O -f/u Blood culture, urine culture, C. Diff toxin A B, Stool culture, Ova and parasite 3. Acute Kidney Injury -acute, BUN 54/ Cr 2.8 -Abd/Pelvis CT:11mm calculus at left urterovesical junction with mild hydroureter but no nephrosis -IV fluids at 75mls/hr 4. CHF with preserved EF -acute on chronic -SOB, pro-BNP 3960, rales/crackles on lung exam -echo 11/10/16: Normal LV size and function with EF of 55%, moderate to severe tricuspid regurgitation, bi-atrial enlargement - 5. Left lung nodule -incidental, 12mm -seen on Abd/Pelvis CT -f/u CT Chest recommended in 3-6 months (10/2017-01/2018) 6. Hypothyroidism -chronic, controlled -TSH 2.12 -continue home medication 7. DVT prophylaxis -SCD's for now, patient with supratherapeutic INR - Date & Time Date: 08/04/17 Time: 10:05
[2017-08-05] MEDS: Dextrose 5%/0.45% NS 1,000 ML IV SCH (04:52)
[2017-08-05 05:37] LABS: INR 1.5 (0.9-1.2); PROTHROMBIN TIME 17.1 Seconds (9.8-13.1)
[2017-08-05] MEDS: Levothyroxine 175 MCG TAB PO SCH (05:55)
[2017-08-05] MEDS: Digoxin 125 mcg (0.125 mg) Tab PO SCH (08:33)
[2017-08-05] MEDS: Calcium-Vit D 500 mg-200 Units Tab UD PO SCH ×2 (08:33→16:37)
[2017-08-05] MEDS: CYANOCOBALAMIN (VITAMIN B-12) 250 MCG TABLET PO SCH (08:33)
--- NOTE | 2017-08-05 11:35 | CP.PCM.CON ---
History of Present Illness - History of Present Illness History of Present Illness: This patient however is 82 years of age male I was called to see him for abnormal kidney function. Patient was admitted the that he's been having diarrhea for couple of days before he came however diarrhea appears to be stopped in the last 24 hours or so. No nausea no chest pain no vomiting . PMHx: Atrial fibrillation s/p pacemaker, CAD, Bradycardia, CHF with preserved EF , Hypothyroidism SurgHx: pacemaker FMHx: noncontributory SocHx: denies tobacco, Etoh or drugs Medications: Warfarin 5 mg PO every other day, Vit B12, Digoxing 125 mcg PO QD, Levothyroxine 175mcg PO QD, Calcium carbonate/Vit D3, Colace , Sennosides Review of Systems - Constitutional Constitutional: absent: Anorexia, Chills - Cardiovascular Cardiovascular: absent: Acrocyanosis, Chest Pain, Dyspnea, Leg Edema, Leg Ulcers - Respiratory Respiratory: absent: Cough, Dyspnea, Hemoptysis - Gastrointestinal Gastrointestinal: absent: Nausea - Genitourinary Genitourinary: Nocturia - Reproductive: Male Reproductive:Male: As Per HPI - Musculoskeletal Musculoskeletal: absent: Abnormal Gait, Atrophy, Back Pain, Numbness - Neurological Neurological: absent: Confusion, Numbness, Focal Weakness, Paresthesias - Endocrine Endocrine: As Per HPI - Hematologic/Lymphatic Hematologic: absent: Easy Bleeding Past Patient History - Past Medical History & Family History Past Medical History?: Yes - Past Social History Alcohol: None - CARDIAC Hx Atrial Fibrillation: Yes Hx Cardia Arrhythmia: Yes (bradycardia) Hx Congestive Heart Failure: Yes Hx Hypertension: Yes Hx Pacemaker: Yes - PULMONARY Hx Respiratory Disorders: No - NEUROLOGICAL Hx Neurological Disorder: No - HEENT Hx HEENT Problems: No - RENAL Hx Chronic Kidney Disease: No - ENDOCRINE/METABOLIC Hx Hypothyroidism: Yes - HEMATOLOGICAL/ONCOLOGICAL Hx Human Immunodeficiency Virus (HIV): No - INTEGUMENTARY Hx Dermatological Problems: No - MUSCULOSKELETAL/RHEUMATOLOGICAL Hx Musculoskeletal Disorders: Yes Hx Falls: Yes - GASTROINTESTINAL Hx Gastrointestinal Disorders: No - GENITOURINARY/GYNECOLOGICAL Hx Genitourinary Disorders: No - PSYCHIATRIC Hx Psychophysiologic Disorder: No Hx Emotional Abuse: No Hx Physical Abuse: No Hx Substance Use: No - SURGICAL HISTORY Hx Tonsillectomy: Yes - ANESTHESIA Hx Anesthesia: Yes Hx Anesthesia Reactions: No Hx Malignant Hyperthermia: No Has any member of the family had a problem w/ anesthesia?: No Meds Allergies/Adverse Reactions: Allergies Allergy/AdvReac Type Severity Reaction Status Date / Time No Known Allergies Allergy RASH Verified 08/03/17 20:46 - Medications Medications: Current Medications Calcium/Vitamin D (Oyster Shell Calcium/Vitamin D 500 Mg-200 Iu) 1 tab PO BID [facility] Last Admin: 08/05/17 08:33 Dose: 1 tab Cyanocobalamin (Vitamin B-12) 250 mcg PO DAILY [facility] Last Admin: 08/05/17 08:33 Dose: 250 mcg Digoxin (Digoxin) 0.125 mg PO DAILY [facility] Last Admin: 08/05/17 08:33 Dose: 0.125 mg Dextrose/Sodium Chloride (Dextrose 5%/0.45% Ns 1000 Ml) 1,000 mls @ 70 mls/hr IV .[id number] [facility] Stop: 08/05/17 11:47 Last Admin: 08/05/17 04:52 Dose: 70 mls/hr Levothyroxine Sodium (Synthroid) 175 mcg PO DAILY@0630 [facility] Last Admin: 08/05/17 05:55 Dose: 175 mcg Warfarin Sodium (Coumadin) 2.5 mg PO QD5 [facility] PRN Reason: Protocol Physical Exam - Constitutional Appears: No Acute Distress - ENT Exam ENT Exam: Mucous Membranes Dry - Neck Exam Neck exam: Negative for: Lymphadenopathy - Respiratory Exam Respiratory Exam: NORMAL BREATHING PATTERN. absent: Chest Wall Tenderness, Rhonchi, Wheezes - Cardiovascular Exam Cardiovascular Exam: Irregular Rhythm. absent: Gallop, JVD, Rubs - GI/Abdominal Exam GI & Abdominal Exam: absent: Guarding, Normal Bowel Sounds - Extremities Exam Extremities exam: Negative for: calf tenderness, pedal edema - Back Exam Back exam: absent: CVA tenderness (L), CVA tenderness (R) - Neurological Exam Neurological exam: Alert - Psychiatric Exam Psychiatric exam: Normal Affect Results - Vital Signs Recent Vital Signs: Last Vital Signs Temp 97.5 F L 08/05/17 08:17 Pulse 70 08/05/17 11:21 Resp 20 08/05/17 08:17 BP 109/75 08/05/17 08:17 Pulse Ox 95 08/05/17 11:21 - Labs Result Diagrams: 08/03/17 22:31 08/03/17 22:31 Labs: Laboratory Results - last 24 hr 08/04/17 08/04/1718 19:00 19:00 05:00 PT 17.1 H D INR 1.5 H D TSH 3rd Generation 2.12 Digoxin 0.6 L Assessment & Plan (1) NICOLLE (acute kidney injury) Assessment and Plan: Patient appears to have acute kidney injury. Most likely related to dehydration patient presented with diarrhea and probably volume depletion. Recommendation Intravenous hydration D5 half-normal saline. Spot urine for sodium osmolality and creatinine Follow-up BMP tomorrow Other diagnosis and medical ratio Status post pacemaker with a history of hypertension Status: Acute
[2017-08-05 12:17] LABS: ALB/GLOB RATIO 0.8 (1.0-2.1); ALBUMIN 3.7 g/dL (3.5-5.0); ALT/SGPT 25 U/L (21-72); AST/SGOT 49 U/L (17-59); BLOOD UREA NITROGEN 33 mg/dl (9-20); GFR AFRICAN-AMERICAN > 60; GFR NON-AFRICAN AMERICAN > 60
[2017-08-05 12:24] LABS: HEMOGLOBIN 16.3 g/dL (12.0-18.0); MEAN CORPUSCULAR HEMOGLOBIN 32.3 pg (27.0-31.0); MEAN CORPUSCULAR HGB CONC 33.7 g/dL (33.0-37.0); RBC 5.05 Mil/uL (4.40-5.90); WHITE BLOOD COUNT 10.1 K/uL (4.8-10.8)
--- NOTE | 2017-08-05 13:04 | PQF ---
CDI RESPONSE TEXT: Chronic a fib CDI QUERY TEXT: Atrial Fibrillation Type Query created by: Estephanie Singh on 08/05/2017 7:37 AM Electronically signed by: Nabor Dueñas MD 08/05/2017 1:01 PM
--- NOTE | 2017-08-05 13:04 | PQF ---
CDI RESPONSE TEXT: Coumadin toxicity prob from dehydration Patient was very compliant with meds. CDI QUERY TEXT: Clarification of Clinical Diagnostic Findings Query created by: Estephanie Singh on 08/05/2017 7:42 AM Electronically signed by: Nabor Dueñas MD 08/05/2017 1:01 PM
--- NOTE | 2017-08-05 13:29 | CP.PCM.PN ---
Subjective - Date & Time of Evaluation Date of Evaluation: 08/05/17 Time of Evaluation: 10:30 - Subjective Subjective: Patient seen and examined at bedside with Dr. Dueñas. Patient reports his diarrhea has resolved, he has not had a bowel movement today. Reports normal urine output, is tolerating PO diet. SOB is improving. Objective - Vital Signs/Intake and Output Vital Signs (last 24 hours): Temp Pulse Resp BP Pulse Ox 97.4 F L 60 18 108/70 97 08/05/17 13:04 08/05/17 13:04 08/05/17 13:04 08/05/17 13:04 08/05/17 13:04 Intake and Output: 08/05/17 08/05/17 06:59 18:59 Intake Total 840 Balance 840 - Medications Medications: Current Medications Calcium/Vitamin D (Oyster Shell Calcium/Vitamin D 500 Mg-200 Iu) 1 tab PO BID [facility] Last Admin: 08/05/17 08:33 Dose: 1 tab Cyanocobalamin (Vitamin B-12) 250 mcg PO DAILY [facility] Last Admin: 08/05/17 08:33 Dose: 250 mcg Digoxin (Digoxin) 0.125 mg PO DAILY [facility] Last Admin: 08/05/17 08:33 Dose: 0.125 mg Levothyroxine Sodium (Synthroid) 175 mcg PO DAILY@0630 [facility] Last Admin: 08/05/17 05:55 Dose: 175 mcg Warfarin Sodium (Coumadin) 2.5 mg PO QD5 [facility] PRN Reason: Protocol - Labs Labs: 08/05/17 11:57 08/05/17 11:57 PT 17.1 Seconds (9.8-13.1) H D 08/05/17 05:00 INR 1.5 (0.9-1.2) H D 08/05/17 05:00 - Constitutional Appears: No Acute Distress - ENT Exam ENT Exam: Mucous Membranes Moist - Neck Exam Neck Exam: Full ROM. absent: Lymphadenopathy - Respiratory Exam Respiratory Exam: NORMAL BREATHING PATTERN - Cardiovascular Exam Cardiovascular Exam: REGULAR RHYTHM - GI/Abdominal Exam GI & Abdominal Exam: Normal Bowel Sounds - Extremities Exam Extremities Exam: Full ROM - Neurological Exam Neurological Exam: Alert, Awake, Oriented x3 - Psychiatric Exam Psychiatric exam: Normal Affect, Normal Mood - Skin Skin Exam: Dry, Warm Assessment and Plan - Assessment and Plan (Free Text) Assessment: 82 yr old M admitted for coumadin toxicity, diarrhea and CHF exacerbation with PMHx including Atrial fibrillation s/p pacemaker, CAD, Bradycardia, CHF with preserved EF, Hypothyroidism. Plan: -hold Coumadin -cardiac monitoring, fall precautions -f/u repeat INR -f/u C-diff, sent -contact isolation -afebrile, no leukocytosis -monitor I & O -f/u Blood culture, urine culture, C. Diff toxin A B, Stool culture, Ova and parasite -Nephrology consult appreciated: IV fluids, f/u BMP -continue home medications -SCD's for now, patient with supratherapeutic INR
[2017-08-06] MEDS: Levothyroxine 175 MCG TAB PO SCH (05:40)
[2017-08-06] MEDS: Digoxin 125 mcg (0.125 mg) Tab PO SCH (09:16)
[2017-08-06] MEDS: Calcium-Vit D 500 mg-200 Units Tab UD PO SCH (09:16)
[2017-08-06] MEDS: CYANOCOBALAMIN (VITAMIN B-12) 250 MCG TABLET PO SCH (09:16)
[2017-08-06 09:17] LABS: INR 1.3 (0.9-1.2); PROTHROMBIN TIME 14.5 Seconds (9.8-13.1)
--- NOTE | 2017-08-06 10:52 | CP.PCM.PN ---
Subjective - Date & Time of Evaluation Date of Evaluation: 08/06/17 Time of Evaluation: 10:51 - Subjective Subjective: Patient feeling much better. Diarrhea appears to be resolving. No nausea or vomiting. Objective - Vital Signs/Intake and Output Vital Signs (last 24 hours): Temp Pulse Resp BP Pulse Ox 97.6 F 56 L 18 111/68 97 08/06/17 08:02 08/06/17 08:02 08/06/17 08:02 08/06/17 08:02 08/06/17 08:02 - Medications Medications: Current Medications Calcium/Vitamin D (Oyster Shell Calcium/Vitamin D 500 Mg-200 Iu) 1 tab PO BID [facility] Last Admin: 08/06/17 09:16 Dose: 1 tab Cyanocobalamin (Vitamin B-12) 250 mcg PO DAILY [facility] Last Admin: 08/06/17 09:16 Dose: 250 mcg Digoxin (Digoxin) 0.125 mg PO DAILY [facility] Last Admin: 08/06/17 09:16 Dose: 0.125 mg Levothyroxine Sodium (Synthroid) 175 mcg PO DAILY@0630 [facility] Last Admin: 08/06/17 05:40 Dose: 175 mcg Warfarin Sodium (Coumadin) 2.5 mg PO QD5 [facility] PRN Reason: Protocol Last Admin: 08/05/17 16:38 Dose: 2.5 mg Warfarin Sodium (Coumadin) 2.5 mg PO QD5 [facility] PRN Reason: Protocol Stop: 08/06/17 17:01 - Labs Labs: 08/05/17 11:57 08/05/17 11:57 PT 14.5 Seconds (9.8-13.1) H 08/06/17 08:30 INR 1.3 (0.9-1.2) H 08/06/17 08:30 - ENT Exam ENT Exam: Mucous Membranes Moist - Neck Exam Neck Exam: absent: Lymphadenopathy - Respiratory Exam Respiratory Exam: NORMAL BREATHING PATTERN. absent: Chest Wall Tenderness - Cardiovascular Exam Cardiovascular Exam: absent: Gallop, JVD, Rubs - GI/Abdominal Exam GI & Abdominal Exam: Soft, Normal Bowel Sounds - Extremities Exam Extremities Exam: absent: Calf Tenderness - Back Exam Back Exam: absent: CVA tenderness (L), CVA tenderness (R) - Neurological Exam Neurological Exam: Alert - Psychiatric Exam Psychiatric exam: Normal Affect - Skin Skin Exam: absent: Cyanosis Assessment and Plan (1) NICOLLE (acute kidney injury) Assessment & Plan: Acute kidney injury appeared to be recovering. Diarrhea appeared to be resolving. Follow-up as needed thank you Status: Acute
--- NOTE | 2017-08-06 11:51 | CP.PCM.PN ---
Subjective - Date & Time of Evaluation Date of Evaluation: 08/06/17 Time of Evaluation: 11:49 - Subjective Subjective: patient feels better Noted improvement of creatinine Had another episode of diarrhea last night Has no bm Objective - Vital Signs/Intake and Output Vital Signs (last 24 hours): Temp Pulse Resp BP Pulse Ox 97.6 F 56 L 18 111/68 97 08/06/17 08:02 08/06/17 08:02 08/06/17 08:02 08/06/17 08:02 08/06/17 08:02 - Medications Medications: Current Medications Calcium/Vitamin D (Oyster Shell Calcium/Vitamin D 500 Mg-200 Iu) 1 tab PO BID [facility] Last Admin: 08/06/17 09:16 Dose: 1 tab Cyanocobalamin (Vitamin B-12) 250 mcg PO DAILY [facility] Last Admin: 08/06/17 09:16 Dose: 250 mcg Digoxin (Digoxin) 0.125 mg PO DAILY [facility] Last Admin: 08/06/17 09:16 Dose: 0.125 mg Levothyroxine Sodium (Synthroid) 175 mcg PO DAILY@0630 [facility] Last Admin: 08/06/17 05:40 Dose: 175 mcg Warfarin Sodium (Coumadin) 2.5 mg PO QD5 [facility] PRN Reason: Protocol Last Admin: 08/05/17 16:38 Dose: 2.5 mg Warfarin Sodium (Coumadin) 2.5 mg PO QD5 [facility] PRN Reason: Protocol Stop: 08/06/17 17:01 - Labs Labs: 08/05/17 11:57 08/05/17 11:57 PT 14.5 Seconds (9.8-13.1) H 08/06/17 08:30 INR 1.3 (0.9-1.2) H 08/06/17 08:30 - Head Exam Head Exam: NORMAL INSPECTION - Eye Exam Eye Exam: Normal appearance - ENT Exam ENT Exam: Mucous Membranes Moist - Respiratory Exam Respiratory Exam: Decreased Breath Sounds, Rhonchi - Cardiovascular Exam Cardiovascular Exam: REGULAR RHYTHM - GI/Abdominal Exam GI & Abdominal Exam: Soft, Normal Bowel Sounds - Neurological Exam Neurological Exam: Awake - Psychiatric Exam Psychiatric exam: Normal Mood Assessment and Plan (1) CKD (chronic kidney disease) stage 2, GFR 60-89 ml/min Status: Acute (2) Chronic a-fib Status: Acute (3) Diarrhea Status: Acute (4) Hypothyroidism Status: Acute - Assessment and Plan (Free Text) Plan: Cont meds cont tx folow up stool exam Noted stool negative and negative guiac.
[2017-08-06] MEDS ORDERED: Atropine-Diphenoxylate 0.025-2.5 mg Tab PO ONE (11:58)
--- NOTE | 2017-08-06 12:55 | RAD ---
HISTORY: pulm congestion COMPARISON: Portable chest 08/03/2017. FINDINGS: LUNGS: Permanent pacemaker reiterated. No interval acute infiltrate bilaterally. PLEURA: No significant pleural effusion identified, no pneumothorax apparent. CARDIOVASCULAR: Stable cardiomegaly. No pulmonary vascular congestion. OSSEOUS STRUCTURES: No significant abnormalities. VISUALIZED UPPER ABDOMEN: Normal. OTHER FINDINGS: None. IMPRESSION: Stable cardiomegaly. No interval acute cardiopulmonary disease appreciable.
[2017-08-06 20:03] VITALS: RESP 18
[2017-08-07] MEDS: Levothyroxine 175 MCG TAB PO SCH (06:00)
[2017-08-07 06:35] LABS: INR 1.4 (0.9-1.2); PROTHROMBIN TIME 15.9 Seconds (9.8-13.1)
[2017-08-07] MEDS: CYANOCOBALAMIN (VITAMIN B-12) 250 MCG TABLET PO SCH (08:42)
[2017-08-07] MEDS: Digoxin 125 mcg (0.125 mg) Tab PO SCH (08:43)
[2017-08-07] MEDS: Calcium-Vit D 500 mg-200 Units Tab UD PO SCH (08:43)
[2017-08-07 08:44] VITALS: PULSE 63
[2017-08-07 12:16] VITALS: BP 114/77; PULSE 74; TEMP 97.9; O2SAT 97
[2017-08-08 21:36] LABS: CREATININE, RANDOM URINE 89.7 mg/dL
== END 2017-08-07 13:48 | DRG 682 ==
LOC: H.ER 20:32 → H.ERHOLD 08-04 05:08 → H.TEL 08-04 13:14
PROVIDERS: ADMIT Family Medicine; ATTEND Family Medicine
DX: N17.9 Acute kidney failure, unspecified (principal); I50.33 Acute on chronic diastolic (congestive) heart failure; I13.0 Hypertensive heart and chronic kidney disease with heart failure and stage 1 through stage 4 chronic kidney disease, or unspecified chronic kidney disease; T45.515A Adverse effect of anticoagulants, initial encounter; R19.7 Diarrhea, unspecified; Y92.9 Unspecified place or not applicable; E03.9 Hypothyroidism, unspecified; E86.0 Dehydration; I25.10 Atherosclerotic heart disease of native coronary artery without angina pectoris; I48.2 Chronic atrial fibrillation; I87.8 Other specified disorders of veins; J44.9 Chronic obstructive pulmonary disease, unspecified; N18.2 Chronic kidney disease, stage 2 (mild); Z78.9 Other specified health status; Z79.01 Long term (current) use of anticoagulants; Z87.891 Personal history of nicotine dependence; Z95.0 Presence of cardiac pacemaker; R00.1 Bradycardia, unspecified; R91.1 Solitary pulmonary nodule

== ENCOUNTER 2017-12-29 11:22 | Inpatient (IN) | payer MEDICARE ==
[2017-12-29 11:22] VITALS: PULSE 69; BMI 31.3
[2017-12-29 13:38] LABS: BASO # 0.2 K/uL (0.0-0.2); BASO % 0.8 % (0.0-2.0); HEMOGLOBIN 14.1 g/dL (12.0-18.0); LYMPH # 0.7 K/uL (1.0-4.3); LYMPH % 2.9 % (20.0-40.0); MEAN CELL VOLUME 98.8 fl (80.0-94.0); MEAN CORPUSCULAR HEMOGLOBIN 32.3 pg (27.0-31.0); MEAN CORPUSCULAR HGB CONC 32.7 g/dL (33.0-37.0); MEAN PLATELET VOLUME 8.6 fl (7.2-11.7); MONO # 1.2 K/uL (0.0-0.8); MONO % 5.2 % (0.0-10.0); NEUT # 20.9 K/uL (1.8-7.0); NEUT % 91.1 % (50.0-75.0); NRBC % 0.1 % (0.0-0.0); PLATELET COUNT 190 K/uL (130-400); RBC 4.37 Mil/uL (4.40-5.90); RED CELL DISTRIBUTION WIDTH 14.1 % (11.5-14.5)
--- NOTE | 2017-12-29 13:40 | RAD ---
Date of service: 12/29/2017 PROCEDURE: Radiographs of the Left Shoulder HISTORY: Posttraumatic left shoulder pain. COMPARISON: No prior. FINDINGS: BONES: Normal. No fracture. JOINTS: Normal. Glenohumeral and acromioclavicular joints preserved. No osteoarthritis. SOFT TISSUES: Normal. OTHER FINDINGS: None. IMPRESSION: No acute findings related to/accounting for the clinical presentation.
[2017-12-29 13:45] LABS: WHITE BLOOD COUNT 22.9 K/uL (4.8-10.8)
--- NOTE | 2017-12-29 14:03 | ED PDOC ---
Lower Extremity Pain/Injury Time Seen by Provider: 12/29/17 11:51 Chief Complaint (Nursing): Lower Extremity Problem/Injury Chief Complaint (Provider): Lower Extremity Problem/Injury History Per: Patient History/Exam Limitations: no limitations Onset/Duration Of Symptoms: Other (s/p a mechanical fall) Additional Complaint(s): 82 years old male with history of hypertension, arterial fibrillation and CAD presents to ER status post a mechanical fall causing mild pain to left shoulder. Patient is also requesting workup for a chronic ulcer on right ankle that appears to be worsening. He states he used to come to wound clinic at this hospital but it has been closed and he hasn't had evaluation of ulcer since August. Patient is compliant on medication and lives alone. He denies fever, drainage form leg or other injuries. PMD: Nabor Dueñas Past Medical History Reviewed: Historical Data, Nursing Documentation, Vital Signs Vital Signs: Last Vital Signs Temp 98.3 F 12/29/17 11:26 Pulse 78 12/29/17 11:26 Resp 20 12/29/17 11:26 BP 147/85 12/29/17 11:26 Pulse Ox 98 12/29/17 11:26 - Medical History PMH: Atrial Fibrillation, CAD, Cardia Arrhythmia (bradycardia), CHF, HTN, Hypothyroidism Denies: HIV, Chronic Kidney Disease - Surgical History Surgical History: Pacemaker, Tonsillectomy - Family History Family History: States: Unknown Family Hx - Social History Current smoker - smoking cessation education provided: No Alcohol: None Drugs: Denies - Home Medications Home Medications: Ambulatory Orders Medication Instructions Recorded Ca/D3/Mag#11/Zinc/Arts Education Teacher/Todd/Bor 1 tab PO BID 12/29/17 [Caltrate 600+D Plus Tablet] Ergocalciferol (Vitamin D2) 50,000 unit PO MO 12/29/17 [Vitamin D2] Levothyroxine [Synthroid] 175 mcg PO DAILY 12/29/17 RX: Cyanocobalamin (Vitamin B-12) 250 mcg PO DAILY 12/29/17 [Vitamin B-12] RX: Digoxin [Digitek] 125 mcg PO SUMOTUTHFR 12/29/17 RX: Digoxin [Digitek] 250 mcg PO WESA 12/29/17 RX: Warfarin [Coumadin] 4 mg PO QPM 12/29/17 - Allergies Allergies/Adverse Reactions: Allergies Allergy/AdvReac Type Severity Reaction Status Date / Time No Known Allergies Allergy RASH Verified 08/07/17 13:54 Review of Systems ROS Statement: Except As Marked, All Systems Reviewed And Found Negative Constitutional: Negative for: Fever Musculoskeletal: Positive for: Shoulder Pain (Left), Foot Pain (worsening ulcer to right ankle). Negative for: Other (drainage from leg) Physical Exam - Reviewed Nursing Documentation Reviewed: Yes Vital Signs Reviewed: Yes - Physical Exam Appears: Positive for: Non-toxic (Disheveled and smells of urine), No Acute Distress Head Exam: Positive for: ATRAUMATIC, NORMOCEPHALIC Skin: Positive for: Normal Color, Warm, Dry Eye Exam: Positive for: Normal appearance, EOMI, PERRL Cardiovascular/Chest: Positive for: Regular Rate, Rhythm. Negative for: Murmur Respiratory: Positive for: Normal Breath Sounds. Negative for: Wheezing Pulses-Dorsalis Pedis (L): 2+ Pulses-Dorsalis Pedis (R): 2+ Gastrointestinal/Abdominal: Positive for: Normal Exam, Soft. Negative for: Tenderness Back: Positive for: Normal Inspection. Negative for: L CVA Tenderness, R CVA Tenderness Extremity: Positive for: Normal ROM (of arm), Tenderness (to palpation over the left lateral shoulder), Other (ulcer to right lateral distal lower leg. +Ex udates with granulation tissue in the center. chronic woody edema to both legs.). Negative for: Swelling (visible) Neurologic/Psych: Positive for: Alert, Oriented (x3) - Laboratory Results Result Diagrams: 01/01/18 04:12 01/01/18 04:12 - ECG O2 Sat by Pulse Oximetry: 98 (RA) Pulse Ox Interpretation: Normal Medical Decision Making Medical Decision Making: Time: 1212 Initial plan: --Workup for bony injury of left shoulder following a mechanical fall --No indication of CT scan --Workup for worsening ulcer to right extremity --Ordered podiatry consultation --Labs to rule out inflammation --Reassess patient 1336 Shoulder x-ray FINDINGS: BONES: Normal. No fracture. JOINTS: Normal. Glenohumeral and acromioclavicular joints preserved. No osteoarthritis. SOFT TISSUES: Normal. OTHER FINDINGS: None. IMPRESSION: No acute findings related to/accounting for the clinical presentation. 1557 Tibia/Fibula FINDINGS: BONES: No fracture or destructive lesion. JOINT SPACES: Unremarkable. OTHER FINDINGS: Calf edema is present. IMPRESSION: Soft tissue swelling without acute articular or osseous abnormality. Scribe Attestation: Documented by Nneka Warner, acting as a scribe for Joi Davis MD. Provider Scribe Attestation: All medical record entries made by the Scribe were at my direction and personally dictated by me. I have reviewed the chart and agree that the record accurately reflects my personal performance of the history, physical exam, medical decision making, and the department course for this patient. I have also personally directed, reviewed, and agree with the discharge instructions and disposition. Pt seen and evaluated by podiatry. Pt to be admitted for IV antibiotics and wound care. Disposition - Clinical Impression Clinical Impression: Leg ulcer - Disposition Disposition Time: 15:30 Condition: STABLE
[2017-12-29 14:23] LABS: BLOOD UREA NITROGEN 24 mg/dl (9-20); CALCIUM 9.4 mg/dL (8.4-10.2); GFR NON-AFRICAN AMERICAN 58
[2017-12-29 15:01] LABS: LYMPHOCYTE 3 % (20-50); MONOCYTE 4 % (0-10); NEUTROPHIL 93 % (42-75); TOTAL CELLS COUNTED 100
[2017-12-29 15:02] LABS: PLATELET ESTIMATE NORMAL (NORMAL); TOXIC GRANULATION PRESENT
--- NOTE | 2017-12-29 16:01 | RAD ---
Date of service: 12/29/2017 PROCEDURE: Radiographs of the right tibia and fibula. HISTORY: chronic right ulcer. R/O osteo COMPARISON: None available TECHNIQUE: Frontal and lateral views obtained. FINDINGS: BONES: No fracture or destructive lesion. JOINT SPACES: Unremarkable. OTHER FINDINGS: Calf edema is present. IMPRESSION: Soft tissue swelling without acute articular or osseous abnormality.
[2017-12-29] MEDS ORDERED: ceFAZolin 1 GM in Sodium Chloride 0.9% 100 ML IVPB STA (16:35)
--- NOTE | 2017-12-29 16:55 | RAD ---
Date of service: 12/29/2017 HISTORY: possible admission COMPARISON: 08/06/2017 FINDINGS: LUNGS: No active pulmonary disease. PLEURA: No significant pleural effusion identified, no pneumothorax apparent. CARDIOVASCULAR: No atherosclerotic calcification present Cardiomegaly. No evidence of acute, significant cardiovascular disease. Position/ configuration of pacemaker Satisfactory. OSSEOUS STRUCTURES: No significant abnormalities. VISUALIZED UPPER ABDOMEN: Normal. OTHER FINDINGS: None. IMPRESSION: No active disease. No significant interval change compared to the prior examination(s).
[2017-12-29 16:57] LABS: VENOUS BLOOD GAS BASE EXCESS 3.8 mmol/L (0.0-2.0); VENOUS BLOOD GAS PCO2 58 mmHg (40-60); VENOUS BLOOD GAS PO2 17 mm/Hg (30-55); VENOUS BLOOD PH 7.34 (7.32-7.43)
--- NOTE | 2017-12-29 17:38 | CP.PCM.CON ---
History of Present Illness - History of Present Illness History of Present Illness: Podiatry consult note for Dr. Vergara, 82 year old male with PMH of heart disease and past right lower leg ulceration present to the ED for chronic right lower leg ulceration and s/p fall. States the ulcer has been present for a long time, and used to see Dr. Vergara regularly for treatment. However, since the wound care center has closed he has not been able to see a doctor. Dneies seeing any drainage from it. States he washed it and dressed the ulcer on his own daily. Denies seeing any purulent drainage from the ulcer. Denies any other pedal complains. He denies n/v/sob/cp/chills or f PMH: heard disease, history of ulceration PSH:pacemaker placement 10 years ago MEDS: see meds list ALL: none FH: noncontributory Past Patient History - Past Medical History & Family History Past Medical History?: Yes - Past Social History Alcohol: None Drugs: Denies - CARDIAC Hx Atrial Fibrillation: Yes Hx Cardia Arrhythmia: Yes (bradycardia) Hx Congestive Heart Failure: Yes Hx Hypertension: Yes Hx Pacemaker: Yes - PULMONARY Hx Respiratory Disorders: No - NEUROLOGICAL Hx Neurological Disorder: No - HEENT Hx HEENT Problems: No - RENAL Hx Chronic Kidney Disease: No - ENDOCRINE/METABOLIC Hx Hypothyroidism: Yes - HEMATOLOGICAL/ONCOLOGICAL Hx Human Immunodeficiency Virus (HIV): No - INTEGUMENTARY Hx Dermatological Problems: No - MUSCULOSKELETAL/RHEUMATOLOGICAL Hx Musculoskeletal Disorders: Yes Hx Falls: Yes - GASTROINTESTINAL Hx Gastrointestinal Disorders: No - GENITOURINARY/GYNECOLOGICAL Hx Genitourinary Disorders: No - PSYCHIATRIC Hx Psychophysiologic Disorder: No Hx Emotional Abuse: No Hx Physical Abuse: No Hx Substance Use: No - SURGICAL HISTORY Hx Tonsillectomy: Yes - ANESTHESIA Hx Anesthesia: Yes Hx Anesthesia Reactions: No Hx Malignant Hyperthermia: No Meds Allergies/Adverse Reactions: Allergies Allergy/AdvReac Type Severity Reaction Status Date / Time No Known Allergies Allergy RASH Verified 08/07/17 13:54 Physical Exam - Constitutional Appears: Well, Non-toxic - Head Exam Head Exam: ATRAUMATIC - Extremities Exam Additional comments: Vasc: DP and PT nonpalpable, temperature gradient cool to cool, CFT <4 seconds to the digits, edema noted to the LE bilaterally Ortho: MM is 5/5 in all four compartments, tenderness noted to palpation surrounding ulceration site Neuro: sensation slightly diminished Derm: ulceration on the lateral aspect of lower 1/3 of the right leg measuring approximately 3.5 x 3.0 x .2. Wound base is 100% granular. Mild yellow serous drainage noted, no odor, no purulence noted, erythema extending to the anterior lateral leg. No probe to bone, no undermining, no tunneling noted. - Neurological Exam Neurological exam: Alert, Oriented x3 - Psychiatric Exam Psychiatric exam: Normal Affect Results - Vital Signs Recent Vital Signs: Last Vital Signs Temp 98.3 F 12/29/17 11:26 Pulse 78 12/29/17 11:26 Resp 20 12/29/17 11:26 BP 147/85 12/29/17 11:26 Pulse Ox 98 12/29/17 16:40 - Labs Result Diagrams: 12/30/17 04:25 12/30/17 04:25 Labs: Laboratory Results - last 24 hr 12/29/17 12/29/17 12/29/17 13:14 14:10 16:22 WBC 22.9 H D RBC 4.37 L Hgb 14.1 D Hct 43.1 MCV 98.8 H D MCH 32.3 H MCHC 32.7 L RDW 14.1 Plt Count 190 MPV 8.6 Neut % (Auto) 91.1 H Lymph % (Auto) 2.9 L Rains % (Auto) 5.2 Eos % (Auto) 0.0 Baso % (Auto) 0.8 Neut # (Auto) 20.9 H Lymph # (Auto) 0.7 L Rains # (Auto) 1.2 H Eos # (Auto) 0.0 Baso # (Auto) 0.2 Neutrophils % (Manual) 93 H Lymphocytes % (Manual) 3 L Monocytes % (Manual) 4 Toxic Granulation Present Platelet Estimate Normal RBC Morphology Normal pO2 17 L VBG pH 7.34 VBG pCO2 58 VBG HCO3 25.7 VBG Total CO2 33.1 H VBG O2 Sat (Calc) 23.3 L VBG Base Excess 3.8 H VBG Potassium 4.7 Glucose 133 H Lactate 3.1 H FiO2 21.0 Sodium 137 134.0 Potassium 4.2 Chloride 102 101.0 Carbon Dioxide 29 Anion Gap 10 BUN 24 H Creatinine 1.2 Est GFR ( Amer) > 60 Est GFR (Non-Af Amer) 58 Random Glucose 144 H Calcium 9.4 Venous Blood Potassium 4.7 Assessment & Plan - Assessment and Plan (Free Text) Assessment: 82 year old male with PMH of heart disease and history of right lower leg u lceration present to the ED for right lower leg ulceration and cellulitis Plan: Patient was examined and evaluated in the ED Charts, labs, vitals reviewed (afebrile, WBC=22.9) X-ray reviewed- no fracture or destructive lesion noted; no OM or acute pathology Ulceration cleansed, dressed with betadine, 4x4, kerlix Wound culture pending results start broad spectrum IV antibiotics Patient will be admitted due to high WBC count and cellulitis of the right leg. will continue to follow on the floors. Thank you for the consult
[2017-12-29 19:33] LABS: SQUAMOUS EPITHIAL 4 /hpf (0-5); URINE BACTERIA MANY (<OCC); URINE BILIRUBIN NEGATIVE (NEGATIVE); URINE BLOOD LARGE (NEGATIVE); URINE CLARITY CLOUDY (Clear); URINE COLOR YELLOW (YELLOW); URINE GLUCOSE (UA) NEG (Normal); URINE HYALINE CAST 0-2 /hpf (0-2); URINE LEUKOCYTE ESTERASE MOD Leu/uL (Negative); URINE PROTEIN 30 mg/dL (NEGATIVE); URINE UROBILINOGEN 0.2-1.0 mg/dL (0.2-1.0)
[2017-12-29] MEDS ORDERED: Potassium Chl 20 mEq in D5-NS 1,000 ML IV SCH (22:00)
[2017-12-29] MEDS ORDERED: Sodium Chloride 0.9% 500 ML IV ONE (23:52)
--- NOTE | 2017-12-29 23:54 | PCM.RRT ---
<Charmaine Munguia - Last Filed: 12/30/17 00:46> - Head Head Exam: ATRAUMATIC - Respiratory Exam Respiratory Exam: Clear to Ausculation Bilateral - Cardiovascular Exam Cardiovascular Exam: RRR - GI/Abdominal Exam GI & Abdominal Exam: Soft, Normal Bowel Sounds. absent: Tenderness Additional comments: no bruising of the flanks - Neurological Exam Neurological Exam: Alert, Awake - Extremities Exam Additional comments: right lower leg ulcer with b/l hyperpigmentation of lower legs Plan - Assessment of Findings&Treatment Plan PHOTOGRAPHY MANAGER called by RN PHOTOGRAPHY MANAGER start time: 1150pm Response time: 2 minutes PHOTOGRAPHY MANAGER end time: 12:18am Dr. Ko present PHOTOGRAPHY MANAGER was called on 82 y/o M w/hx of CHF, HTN, CKD, A. fib with pacemaker because of hypotension. Patient was admitted s/p fall & rt lower leg ulcer. Initial vitals: BP: 55/35 Temp: 98.6F RR: 18 spo2-96% Interventions: 500ml NS bolus x 2 EKG: showed pacing 3L of oxygen via NC Post vitals: BP: 87/49, Temp: 98.6F RR:16 spo2-99% A/P: 2 y/o M w/hx of CHF, HTN, CKD, A. fib with pacemaker because of hypotension . -Transfer to ICU for further monitoring. <Ad Ko - Last Filed: 12/30/17 04:30> PHOTOGRAPHY MANAGER Nurse Assessment - Vital Signs Vital Signs: Rapid Response Vital Sign Blood Pressure 71/39 Pulse Rate 63 Respiratory Rate 21 Temperature 98 F Oxygen Saturation 96 - Vital Signs at end of PHOTOGRAPHY MANAGER Vital Signs at end of PHOTOGRAPHY MANAGER: Rapid Response End Vital Sign Blood Pressure 86/42 Pulse Rate 62 Respiratory Rate 19 Temperature 98.6 F Attending/Attestation - Attestation I have personally seen and examined this patient.: Yes I have fully participated in the care of the patient.: Yes I have reviewed all pertinent clinical information, including history, physical exam and plan: Yes Notes (Text): 12/30/17 04:25 I saw and examined this patient with Dr Munguia. The PHOTOGRAPHY MANAGER was called because the patient had a Blood Pressure of 55/49. I&P #. Sepsis with Hypotension - IV Fluids with 1 liter bolus of Normal saline. The SBP increased to the 80s and the patient was transferred to ICU for continuous blood pressure monitoring and resuscitation. Ad Ko MD
[2017-12-30] MEDS ORDERED: Sodium Chloride 0.9% 500 ML IV ONE (00:02)
[2017-12-30] MEDS ORDERED: Sodium Chloride 0.9% 1,000 ML IV SCH ×2 (00:45→06:30)
[2017-12-30] MEDS ORDERED: Ergocalciferol 50,000 Intl Units Cap PO SCH (01:30)
--- NOTE | 2017-12-30 01:39 | CP.PCM.CON ---
History of Present Illness - History of Present Illness History of Present Illness: Attending: Dr Dueñas Reason for Consult: critical care management Chief Complaint: Hypotension The patient was seen and examined in the Medical Surgical Unit. HPI: The hx was obtained from the medical records as the patients speech is somewhat dysarthric. This is an 82 years old male with hx of CHF, Hypothyroidism and Atrial Fibrillation, chronic right leg ulcer which is getting worse. He fell at his home after his legs felt weak, causing trauma and pain to the left shoulder, and the right leg. He stated that he did not hit his head and no LOC. No drainage from the leg ulcer. Temperature was 99.9F in ED and 102.9 on arriving at the Medical floor. The patient was given Tylenol.The patient was found to be hypotensive. Rapid response Team was called because of Blood Pressure of 55/49/mmHg increasing to SBP of 80s after 2 liters of Normal saline. The patient was transferred to the ICU for continuous Blood pressure monitoring and to add Vasopressors if needed. PMH:: Atrial Fibrillation with bradycardia, with PPM, CAD, CHF with preserved EF. Hypothyroidism; Chronic right leg ulcer, HTN PSH: Tonsilectomy; PPM insertion SH: Former Smoker; No illegal drug use; No Alcohol; Live Alone FH: States: NO known family hx Allergies: NKDA Medication: Reviewed Review of Systems - Review of Systems Review of Systems: Review of systems limited because of patient's Dysarthria - Constitutional Constitutional: Fever. absent: Chills, Headache - Cardiovascular Cardiovascular: Leg Ulcers - Respiratory Respiratory: absent: Cough, Wheezing - Gastrointestinal Gastrointestinal: absent: Constipation, Diarrhea, Nausea, Vomiting - Psychiatric Psychiatric: absent: Anxiety, Depression, Panic Attacks - Hematologic/Lymphatic Hematologic: absent: Easy Bleeding, Easy Bruising Past Patient History - Past Medical History & Family History Past Medical History?: Yes - Past Social History Smoking Status: Former Smoker Chewing Tobacco Use: No Cigar Use: No Alcohol: None Drugs: Denies Home Situation {Lives}: Alone - CARDIAC Hx Cardiac Disorders: Yes Hx Atrial Fibrillation: Yes Hx Hypercholesterolemia: Yes Hx Hypertension: Yes Other/Comment: CAD - PULMONARY Hx Respiratory Disorders: No - NEUROLOGICAL Hx Neurological Disorder: No - HEENT Hx HEENT Problems: No - RENAL Hx Chronic Kidney Disease: No - ENDOCRINE/METABOLIC Hx Endocrine Disorders: Yes Hx Hypothyroidism: Yes - HEMATOLOGICAL/ONCOLOGICAL Hx Blood Disorders: No - INTEGUMENTARY Hx Dermatological Problems: No - MUSCULOSKELETAL/RHEUMATOLOGICAL Hx Musculoskeletal Disorders: Yes - GASTROINTESTINAL Hx Gastrointestinal Disorders: No - GENITOURINARY/GYNECOLOGICAL Hx Genitourinary Disorders: No - PSYCHIATRIC Hx Psychophysiologic Disorder: No - SURGICAL HISTORY Hx Cataract Extraction: Yes Hx Tonsillectomy: Yes Other/Comment: Permanent pacemaker - ANESTHESIA Hx Anesthesia: Yes Hx Anesthesia Reactions: No Hx Malignant Hyperthermia: No Meds Allergies/Adverse Reactions: Allergies Allergy/AdvReac Type Severity Reaction Status Date / Time No Known Allergies Allergy RASH Verified 08/07/17 13:54 - Medications Medications: Current Medications Acetaminophen (Tylenol 325mg Tab) 650 mg PO Q4 PRN PRN Reason: Fever >100.4 F Last Admin: 12/29/17 21:07 Dose: 650 mg Cyanocobalamin (Vitamin B-12) 250 mcg PO DAILY [facility] Ergocalciferol (Drisdol 50,000 Intl Units Cap) 1 cap PO Q7D [facility] Sodium Chloride (Sodium Chloride 0.9%) 1,000 mls @ 1,000 mls/hr IV .Q1H [facility] Stop: 12/31/17 00:43 Last Admin: 12/30/17 00:53 Dose: 1,000 mls/hr Ketorolac Tromethamine (Toradol) 10 mg PO Q6 PRN PRN Reason: Pain, moderate (4-7) Levothyroxine Sodium (Synthroid) 175 mcg PO DAILY@0630 [facility] Warfarin Sodium (Coumadin) 4 mg PO QPM [facility]; Protocol Stop: 12/30/17 18:01 Physical Exam - Constitutional Appears: No Acute Distress - Head Exam Head Exam: ATRAUMATIC, NORMAL INSPECTION, NORMOCEPHALIC - Eye Exam Eye Exam: EOMI Pupil Exam: PERRL - ENT Exam ENT Exam: Mucous Membranes Dry, Normal Exam, Normal External Ear Exam - Neck Exam Neck exam: Positive for: Full Rom, Normal Inspection. Negative for: Lymphadenopathy, Tenderness - Respiratory Exam Respiratory Exam: Clear to Auscultation Bilateral. absent: Rales, Rhonchi, Wheezes - Cardiovascular Exam Cardiovascular Exam: REGULAR RHYTHM, RRR, +S1, +S2 - GI/Abdominal Exam Additional comments: Obese,soft, nontender, no guarding, +ve bowel sounds, no viceromegaleas - Rectal Exam Rectal Exam: Deferred - Extremities Exam Additional comments: Ulcer to distal half of right leg. - Back Exam Back exam: NORMAL INSPECTION. absent: CVA tenderness (L), CVA tenderness (R) - Neurological Exam Neurological exam: Alert, CN II-XII Intact, Oriented x3, Reflexes Normal - Psychiatric Exam Psychiatric exam: Normal Affect, Normal Mood - Skin Skin Exam: Dry, Warm Results - Vital Signs Recent Vital Signs: Last Vital Signs Temp 98.6 F 12/29/17 23:58 Pulse 84 12/29/17 23:58 Resp 20 12/29/17 23:58 BP 123/68 12/29/17 20:07 Pulse Ox 96 12/29/17 23:58 - Labs Result Diagrams: 12/29/17 13:14 12/30/17 04:25 Labs: Laboratory Results - last 24 hr 12/29/17 12/29/17 12/29/17 13:14 14:10 16:22 WBC 22.9 H D RBC 4.37 L Hgb 14.1 D Hct 43.1 MCV 98.8 H D MCH 32.3 H MCHC 32.7 L RDW 14.1 Plt Count 190 MPV 8.6 Neut % (Auto) 91.1 H Lymph % (Auto) 2.9 L Macon % (Auto) 5.2 Eos % (Auto) 0.0 Baso % (Auto) 0.8 Neut # (Auto) 20.9 H Lymph # (Auto) 0.7 L [place]on # (Auto) 1.2 H Eos # (Auto) 0.0 Baso # (Auto) 0.2 Neutrophils % (Manual) 93 H Lymphocytes % (Manual) 3 L Monocytes % (Manual) 4 Toxic Granulation Present Platelet Estimate Normal RBC Morphology Normal pO2 17 L VBG pH 7.34 VBG pCO2 58 VBG HCO3 25.7 VBG Total CO2 33.1 H VBG O2 Sat (Calc) 23.3 L VBG Base Excess 3.8 H VBG Potassium 4.7 Glucose 133 H Lactate 3.1 H FiO2 21.0 Sodium 137 134.0 Potassium 4.2 Chloride 102 101.0 Carbon Dioxide 29 Anion Gap 10 BUN 24 H Creatinine 1.2 Est GFR ( Amer) > 60 Est GFR (Non-Af Amer) 58 POC Glucose (mg/dL) Random Glucose 144 H Calcium 9.4 Venous Blood Potassium 4.7 Urine Color Urine Clarity Urine pH Ur Specific Jackson Urine Protein Urine Glucose (UA) Urine Ketones Urine Blood Urine Nitrate Urine Bilirubin Urine Urobilinogen Ur Leukocyte Esterase Urine RBC (Auto) Urine Microscopic WBC Ur Squamous Epith Cells Urine Bacteria Hyaline Casts 12/29/17 12/29/17 18:45 23:48 WBC RBC Hgb Hct MCV MCH MCHC RDW Plt Count MPV Neut % (Auto) Lymph % (Auto) Macon % (Auto) Eos % (Auto) Baso % (Auto) Neut # (Auto) Lymph # (Auto) Macon # (Auto) Eos # (Auto) Baso # (Auto) Neutrophils % (Manual) Lymphocytes % (Manual) Monocytes % (Manual) Toxic Granulation Platelet Estimate RBC Morphology pO2 VBG pH VBG pCO2 VBG HCO3 VBG Total CO2 VBG O2 Sat (Calc) VBG Base Excess VBG Potassium Glucose Lactate FiO2 Sodium Potassium Chloride Carbon Dioxide Anion Gap BUN Creatinine Est GFR ( Amer) Est GFR (Non-Af Amer) POC Glucose (mg/dL) 126 H Random Glucose Calcium Venous Blood Potassium Urine Color Yellow Urine Clarity Cloudy Urine pH 5.0 Ur Specific Jackson 1.019 Urine Protein 30 Urine Glucose (UA) Neg Urine Ketones Negative Urine Blood Large Urine Nitrate Negative Urine Bilirubin Negative Urine Urobilinogen 0.2-1.0 Ur Leukocyte Esterase Mod Urine RBC (Auto) 71 H Urine Microscopic WBC 367 H Ur Squamous Epith Cells 4 Urine Bacteria Many H Hyaline Casts 0-2 - Impressions Impression: Regular Paced and captured beats 60/min - Imaging and Cardiology Chest x-ray Status: Image reviewed by me, Report reviewed by me Additional comment: Left lung base with opacity on AP film. No change in appearance from CXR of 08/03 Right Tib/Fib X Ray Status: Image reviewed by me Additional comment: No fracture soft tissue swelling at the distal half X Ray Shoulder Status: Image reviewed by me Additional comment: No fracture nor acute finding Assessment & Plan - Assessment and Plan (Free Text) Assessment: #. Leg ulcer eith Cellulitis #. Sepsis with Hypotension #. Hypothyroisism #. Dehydration #. A Fib with PPM #. Leukocytosis Plan: 82 years old male with hx of CHF, Hypothyroidism and Atrial Fibrillation, chronic right leg ulcer which is getting worse. He fell at his home after his legs felt weak, causing trauma and pain to the left shoulder, and the right leg. He stated that he did not hit his head and no LOC. No fever nor.drainage from the leg ulcer. #. Leg ulcer with Cellulitis - Consult Podiatry - Vancomycin #. Sepsis with Hypotension. Fever, elevated Lactic Acid, Leukocytosis and Hypotenson. This could be caused by The Cellulitis and a UTI -IV fluids. @ liters given on the floors.continue with 200mls/hr - Consult ID Dr Vazquez - Follow blood and urine cultures - Cefepime and Vancomycin #. Hypothyroidism - Levothyroxin - Follow TSH #. Dehydration - IV Fluids - Follow renal labs #. A Fib with PPM - Continue Digoxin - Coumadin as anticoagulant #. Leukocytosis secondary to sepsis #. DVT Prophylaxis - Continue Coumadin according to INR. Administer Lovenox if INR is subtherapeutis Ad Ko MD - Date & Time Date: 12/30/17 Time: 01:39
[2017-12-30] MEDS: Sodium Chloride 0.9% 1,000 ML IV SCH ×3 (02:00→13:08)
--- NOTE | 2017-12-30 04:21 | CP.PCM.PCO ---
Physician Communication Note - Physician Communication Note Physician Communication Note: Attempt at left Femoral vein TLC unsuccessful
[2017-12-30 05:46] LABS: BASO % 0.2 % (0.0-2.0); HEMOGLOBIN 10.1 g/dL (12.0-18.0); LYMPH # 1.7 K/uL (1.0-4.3); LYMPH % 7.1 % (20.0-40.0); MEAN CELL VOLUME 98.5 fl (80.0-94.0); MEAN CORPUSCULAR HEMOGLOBIN 32.1 pg (27.0-31.0); MEAN CORPUSCULAR HGB CONC 32.6 g/dL (33.0-37.0); MEAN PLATELET VOLUME 8.5 fl (7.2-11.7); MONO # 1.7 K/uL (0.0-0.8); NEUT # 20.5 K/uL (1.8-7.0); NEUT % 85.7 % (50.0-75.0); RBC 3.15 Mil/uL (4.40-5.90); WHITE BLOOD COUNT 23.9 K/uL (4.8-10.8)
[2017-12-30 05:57] LABS: ALB/GLOB RATIO 0.8 (1.0-2.1); ALBUMIN 2.6 g/dL (3.5-5.0); CALCIUM 8.1 mg/dL (8.4-10.2); INR 2.3; PROTHROMBIN TIME 26.7 Seconds (9.8-13.1)
[2017-12-30] MEDS: Cefepime 1 GM in Sodium Chloride 0.9% 100 ML IVPB SCH ×3 (06:11→21:02)
[2017-12-30] MEDS: Levothyroxine 175 MCG TAB PO SCH (06:52)
--- NOTE | 2017-12-30 09:08 | CT ---
Date of service: 12/30/2017 PROCEDURE: CT HEAD WITHOUT CONTRAST. HISTORY: s/p fall COMPARISON: None available. TECHNIQUE: Axial computed tomography images were obtained through the head/brain without intravenous contrast. Radiation dose: Total exam DLP = 1343.25 mGy-cm. This CT exam was performed using one or more of the following dose reduction techniques: Automated exposure control, adjustment of the mA and/or kV according to patient size, and/or use of iterative reconstruction technique. FINDINGS: HEMORRHAGE: No intracranial hemorrhage. BRAIN: No mass effect or edema. There is generalized atrophy or chronic appearing microvascular ischemic changes. Most pronounced in the periventricular locations VENTRICLES: Unremarkable. No hydrocephalus. CALVARIUM: Unremarkable. PARANASAL SINUSES: Unremarkable as visualized. No significant inflammatory changes. MASTOID AIR CELLS: Unremarkable as visualized. No inflammatory changes. OTHER FINDINGS: Extensive atherosclerotic vertebrobasilar and supraclinoid internal carotid artery calcifications are present. 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 Additional lytic lesions of the maxilla from a different concomitant etiology is not excluded. Consultation with a dentist/oral surgeon is advised. IMPRESSION: No intracranial hemorrhage or mass effect. Extensive cerebral atrophy and chronic appearing microvascular ischemic changes. Extensive atherosclerotic vascular disease. 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 Additional lytic lesions of the right maxilla from a different concomitant etiology is not excluded. Consultation with a dentist/oral surgeon is advised. Comments: Study marked for PA review .
[2017-12-30] MEDS: CYANOCOBALAMIN (VITAMIN B-12) 250 MCG TABLET PO SCH (09:17)
--- NOTE | 2017-12-30 11:14 | PCM.PROC ---
<Toni Watson - Last Filed: 12/30/17 11:12> Procedures Attestation:: I certify that I have explained the specified Operation(s) or Procedure(s), risks, benefits and reasonable alternatives to the Patient and/or other person responsible. The opportunity was given to ask questions and all questions answered - Central Line Placement Right Femoral Triple Lumen Catheter Aseptic technique was employed throughout the procedure: Hand Hygiene done prior to procedure, Full sterile barriers (mask, hair cover, sterile gown, sterile gloves), Chloraprep Antiseptic: 2 minute prep for Femoral CVP Time Out Performed: Yes Pt. Placed on Pulse Ox Monitor: Yes (99% on NC) Central Line Prep: Povidone-Iodine 1% Local Anesthesia Used: Lidocaine 1% Amount of Anesthesia Used (mls): 4 Ultrasound Used for Placement: No Central Line Lumen Inserted: triple Central Line Length: 20 cm Post Procedure: Sutured in Place, Good Blood Return, All Ports Aspirated, Flushed, Capped, Sterile Dressing Applied Secured by: Suture Post procedure dressing: Clear vapor permeable, Chlorhexidine disc (Biopatch) Post Procedure X-Ray: No Patient Tolerated Procedure: Well, No Complications Immediate Complications: None Additional Comments: central line inserted for hypotension and pt needing pressor therapy. Pt suleman erated well, denied any pain. No complications. <Philippe Scanlon - Last Filed: 12/30/17 12:01> Procedures Attestation:: I certify that I have explained the specified Operation(s) or Procedure(s), risks, benefits and reasonable alternatives to the Patient and/or other person responsible. The opportunity was given to ask questions and all questions answered - Central Line Placement Right Femoral Triple Lumen Catheter Additional Comments: Procedure supervised at the bedside, no complications, performed under emergent conditions in ICU due to hypotension / shock state, and need for vasopressor support.
--- NOTE | 2017-12-30 12:41 | CARD ---
APPROVED REPORT Date of service: 12/30/2017 EKG Measurement Heart [id number] <Conclusion> Ventricular-paced rhythm Abnormal ECG
[2017-12-30 14:51] LABS: SQUAMOUS EPITHIAL 2 /hpf (0-5); URINE BACTERIA MANY (<OCC); URINE BILIRUBIN NEGATIVE (NEGATIVE); URINE BLOOD LARGE (NEGATIVE); URINE CLARITY TURBID (Clear); URINE COLOR AMBER (YELLOW); URINE GLUCOSE (UA) NEG (Normal); URINE LEUKOCYTE ESTERASE MOD Leu/uL (Negative); URINE PROTEIN 100 mg/dL (NEGATIVE); URINE UROBILINOGEN 0.2-1.0 mg/dL (0.2-1.0)
--- NOTE | 2017-12-30 15:04 | CP.CCUPN ---
CCU Subjective - Physician Review Subjective (Free Text): Addendum to original Critical Care consultation done by Dr. Timothy Ko today: Events since admission reviewed; awake and alert but disoriented to place and time, no obvious distress, repeat serial Lactate has normalized; BP remains low despite 3 liters fluid challenge, TLC placed emergently in ICU for hypotension / shock and vasopressor support. Levophed started. ECHO ordered for LX FX assessment, and IVC compressibility. He denies any SOB at bed rest and oxygen requirements have not increased. Most likely source of fevers may be due more to infected tract than R leg ulcer. Discussed with ID, will preliminarily keep patient on Cefepime / Vanco for now. Will continue Warfarin, and THRT, assess free T4 level. TSH is normal. Will stop IVFs infusing at 200ml / hr and give fluid challenges prn if further fluids are needed. CT Head findings r eviewed. Further w/u can be done as an outpatient. Do not feel jaw lesions are a primary source of patients sepsis / fevers.
--- NOTE | 2017-12-30 16:28 | CP.PCM.PN ---
Subjective - Date & Time of Evaluation Date of Evaluation: 12/30/17 Time of Evaluation: 16:25 - Subjective Subjective: I D NOTE PATIENT EXAMINED ,EMR REVIEWED CONSULT DICTATED FOR PRESENT RX c CLINDAMYCIN/MAXIPEME HOLD VANCOMYCIN Objective - Vital Signs/Intake and Output Vital Signs (last 24 hours): Temp Pulse Resp BP Pulse Ox 98.5 F 60 11 L 103/55 L 100 12/30/17 08:00 12/30/17 11:00 12/30/17 11:00 12/30/17 11:00 12/30/17 11:00 Intake and Output: 12/30/17 12/30/17 06:59 18:59 Intake Total 3210 0 Output Total 800 75 Balance 2410 -75 - Medications Medications: Current Medications Acetaminophen (Tylenol 325mg Tab) 650 mg PO Q4 PRN PRN Reason: Fever >100.4 F Last Admin: 12/29/17 21:07 Dose: 650 mg Cyanocobalamin (Vitamin B-12) 250 mcg PO DAILY [facility] Last Admin: 12/30/17 09:17 Dose: 250 mcg Ergocalciferol (Drisdol 50,000 Intl Units Cap) 1 cap PO Q7D [facility] Last Admin: 12/30/17 01:52 Dose: Not Given Sodium Chloride (Sodium Chloride 0.9%) 1,000 mls @ 1,000 mls/hr IV .Q1H [facility] Stop: 12/31/17 00:43 Last Admin: 12/30/17 00:53 Dose: 1,000 mls/hr Cefepime HCl 1 gm/ Sodium (Chloride) 100 mls @ 100 mls/hr IVPB Q8H [facility]; Protocol Last Admin: 12/30/17 14:42 Dose: 100 mls/hr Sodium Chloride (Sodium Chloride 0.9%) 1,000 mls @ 1,000 mls/hr IV .Q1H [facility] Stop: 12/31/17 06:20 Last Admin: 12/30/17 06:25 Dose: 1,000 mls/hr Norepinephrine Bitartrate 4 mg (/ Dextrose) 254 mls @ 9.53 mls/hr IV .Q24H [facility]; Protocol Last Titration: 12/30/17 14:40 Dose: 2.5 mcg/min, 9.53 mls/hr Clindamycin Phosphate (Cleocin) 600 mg in 50 mls @ 50 mls/hr IVPB Q12 [facility]; Protocol Ketorolac Tromethamine (Toradol) 10 mg PO Q6 PRN PRN Reason: Pain, moderate (4-7) Levothyroxine Sodium (Synthroid) 175 mcg PO DAILY@0630 [facility] Last Admin: 12/30/17 06:52 Dose: 175 mcg Warfarin Sodium (Coumadin) 4 mg PO QPM [facility]; Protocol Stop: 12/30/17 18:01 - Labs Labs: 12/30/17 04:25 12/30/17 04:25 PT 26.7 Seconds (9.8-13.1) H 12/30/17 04:25 INR 2.3 12/30/17 04:25 APTT 40.0 Seconds (25.6-37.1) H 12/30/17 04:25
--- NOTE | 2017-12-30 17:56 | CP.PCM.HP ---
History of Present Illness - History of Present Illness History of Present Illness: 82 y/o M with a extensive PMHx was admitted for evaluation and management of sepsis due to R ankle cellulitis. Pt came to ED after he fell at his home because his legs felt weak. Pt c/o pain to the left shoulder, and the right leg after fall. Also, pt reported having a chronic ulcer on right ankle that is worsening despite several months of visits to wound clinic. Pt denied fever, chills, LOC, chest pain, SOB, nausea, vomiting, drainage form leg or other injuries. At ED, pt had fever, his WBC was elevated, lactate levels were inc reased and became hypotensive. [employer]TER[employer] was called last night due to persistent hypotension. --Today, pt was seen and examined by bedside with Dr Carrillo. Pt reports feeling OK, denied chest pain, SOB, nausea, leg pain or paresthesias. Pt with fever overnight, tolerating PO. PMHx: Atrial fibrillation s/p pacemaker, CAD, Bradycardia, CHF with preserved EF, Hypothyroidism SurgHx: pacemaker FMHx: noncontributory SocHx: denies tobacco, Etoh or drugs Medications: Warfarin 5 mg PO every other day, Vit B12, Digoxing 125 mcg PO QD, Levothyroxine 175mcg PO QD, Calcium carbonate/Vit D3, Colace , Sennosides Allergies: NKDA Present on Admission - Present on Admission Any Indicators Present on Admission: No Review of Systems - Constitutional Constitutional: Fever. absent: Chills - EENT Nose/Mouth/Throat: absent: Sore Throat, Tongue Swelling, Facial Pain, Neck Pain, Neck Mass - Cardiovascular Cardiovascular: absent: Chest Pain, Claudication - Respiratory Respiratory: absent: Cough, Dyspnea, Hemoptysis - Gastrointestinal Gastrointestinal: absent: Abdominal Pain, Bloating, Diarrhea, Nausea, Vomiting - Genitourinary Genitourinary: absent: Dysuria, Hematuria - Integumentary Integumentary: Skin Ulcer (R lower leg) Past Patient History - Past Medical History & Family History Past Medical History?: Yes - Past Social History Alcohol: None Drugs: Denies - CARDIAC Hx Atrial Fibrillation: Yes Hx Cardia Arrhythmia: Yes (bradycardia) Hx Congestive Heart Failure: Yes Hx Hypertension: Yes Hx Pacemaker: Yes - PULMONARY Hx Respiratory Disorders: No - NEUROLOGICAL Hx Neurological Disorder: No - HEENT Hx HEENT Problems: No - RENAL Hx Chronic Kidney Disease: No - ENDOCRINE/METABOLIC Hx Hypothyroidism: Yes - HEMATOLOGICAL/ONCOLOGICAL Hx Human Immunodeficiency Virus (HIV): No - INTEGUMENTARY Hx Dermatological Problems: No - MUSCULOSKELETAL/RHEUMATOLOGICAL Hx Musculoskeletal Disorders: Yes Hx Falls: Yes - GASTROINTESTINAL Hx Gastrointestinal Disorders: No - GENITOURINARY/GYNECOLOGICAL Hx Genitourinary Disorders: No - PSYCHIATRIC Hx Psychophysiologic Disorder: No Hx Emotional Abuse: No Hx Physical Abuse: No Hx Substance Use: No - SURGICAL HISTORY Hx Tonsillectomy: Yes - ANESTHESIA Hx Anesthesia: Yes Hx Anesthesia Reactions: No Hx Malignant Hyperthermia: No Meds Allergies/Adverse Reactions: Allergies Allergy/AdvReac Type Severity Reaction Status Date / Time No Known Allergies Allergy RASH Verified 08/07/17 13:54 Physical Exam - Constitutional Appears: No Acute Distress - Head Exam Head Exam: ATRAUMATIC, NORMAL INSPECTION - Eye Exam Eye Exam: EOMI, Normal appearance - ENT Exam ENT Exam: Mucous Membranes Dry - Neck Exam Neck exam: Positive for: Full Rom. Negative for: Lymphadenopathy, Meningismus - Respiratory Exam Respiratory Exam: NORMAL BREATHING PATTERN. absent: Rhonchi, Wheezes, Respiratory Distress - Cardiovascular Exam Cardiovascular Exam: REGULAR RHYTHM, +S1, +S2 - GI/Abdominal Exam GI & Abdominal Exam: Normal Bowel Sounds, Soft. absent: Distended, Guarding, Hernia, Tenderness - Neurological Exam Neurological exam: Alert - Skin Additional comments: Ulcer covered by clean and intact dressing of R lower leg, non-tender proximally to dressing. Results - Vital Signs Recent Vital Signs: Last Vital Signs Temp 97.6 F 12/30/17 16:00 Pulse 67 12/30/17 16:00 Resp 13 12/30/17 16:00 BP 105/57 L 12/30/17 16:00 Pulse Ox 95 12/30/17 16:00 - Labs Result Diagrams: 12/30/17 04:25 12/30/17 04:25 Labs: Laboratory Results - last 24 hr 12/29/17 12/29/17 12/30/17 18:45 23:48 04:25 WBC 23.9 H RBC 3.15 L Hgb 10.1 L D Hct 31.0 L MCV 98.5 H MCH 32.1 H MCHC 32.6 L RDW 14.0 Plt Count 160 MPV 8.5 Neut % (Auto) 85.7 H Lymph % (Auto) 7.1 L Antelope % (Auto) 7.0 Eos % (Auto) 0.0 Baso % (Auto) 0.2 Neut # (Auto) 20.5 H Lymph # (Auto) 1.7 Antelope # (Auto) 1.7 H Eos # (Auto) 0.0 Baso # (Auto) 0.0 PT INR APTT Sodium Potassium Chloride Carbon Dioxide Anion Gap BUN Creatinine Est GFR ( Amer) Est GFR (Non-Af Amer) POC Glucose (mg/dL) 126 H Random Glucose Lactic Acid Calcium Phosphorus Magnesium Total Bilirubin AST ALT Alkaline Phosphatase Total Creatine Kinase Total Protein Albumin Globulin Albumin/Globulin Ratio TSH 3rd Generation Urine Color Yellow Urine Clarity Cloudy Urine pH 5.0 Ur Specific [place] 1.019 Urine Protein 30 Urine Glucose (UA) Neg Urine Ketones Negative Urine Blood Large Urine Nitrate Negative Urine Bilirubin Negative Urine Urobilinogen 0.2-1.0 Ur Leukocyte Esterase Mod Urine RBC (Auto) 71 H Urine Microscopic WBC 367 H Ur Squamous Epith Cells 4 Urine Bacteria Many H Hyaline Casts 0-2 Digoxin 12/30/17 12/30/17 12/30/17 04:25 04:25 04:25 WBC RBC Hgb Hct MCV MCH MCHC RDW Plt Count MPV Neut % (Auto) Lymph % (Auto) Antelope % (Auto) Eos % (Auto) Baso % (Auto) Neut # (Auto) Lymph # (Auto) Antelope # (Auto) Eos # (Auto) Baso # (Auto) PT 26.7 H INR 2.3 APTT 40.0 H Sodium 136 Potassium 4.3 Chloride 108 H Carbon Dioxide 23 Anion Gap 9 L BUN 31 H Creatinine 2.0 H Est GFR ( Amer) 39 Est GFR (Non-Af Amer) 32 POC Glucose (mg/dL) Random Glucose 107 Lactic Acid 1.4 Calcium 8.1 L Phosphorus 2.8 Magnesium 1.2 L Total Bilirubin 1.4 H AST 67 H D ALT 28 Alkaline Phosphatase 43 Total Creatine Kinase 1401 H Total Protein 5.7 L Albumin 2.6 L D Globulin 3.1 Albumin/Globulin Ratio 0.8 L TSH 3rd Generation 2.77 Urine Color Urine Clarity Urine pH Ur Specific [place] Urine Protein Urine Glucose (UA) Urine Ketones Urine Blood Urine Nitrate Urine Bilirubin Urine Urobilinogen Ur Leukocyte Esterase Urine RBC (Auto) Urine Microscopic WBC Ur Squamous Epith Cells Urine Bacteria Hyaline Casts Digoxin 12/30/17 12/30/17 14:12 14:12 WBC RBC Hgb Hct MCV MCH MCHC RDW Plt Count MPV Neut % (Auto) Lymph % (Auto) Antelope % (Auto) Eos % (Auto) Baso % (Auto) Neut # (Auto) Lymph # (Auto) [place]elope # (Auto) Eos # (Auto) Baso # (Auto) PT INR APTT Sodium Potassium Chloride Carbon Dioxide Anion Gap BUN Creatinine Est GFR ( Amer) Est GFR (Non-Af Amer) POC Glucose (mg/dL) Random Glucose Lactic Acid Calcium Phosphorus Magnesium Total Bilirubin AST ALT Alkaline Phosphatase Total Creatine Kinase Total Protein Albumin Globulin Albumin/Globulin Ratio TSH 3rd Generation Urine Color [place] Urine Clarity Turbid Urine pH 5.0 Ur Specific [place] 1.024 Urine Protein 100 Urine Glucose (UA) Neg Urine Ketones Negative Urine Blood Large Urine Nitrate Negative Urine Bilirubin Negative Urine Urobilinogen 0.2-1.0 Ur Leukocyte Esterase Mod Urine RBC (Auto) 985 H Urine Microscopic WBC 1809 H Ur Squamous Epith Cells 2 Urine Bacteria Many H Hyaline Casts Digoxin < 0.4 L Assessment & Plan - Assessment and Plan (Free Text) Assessment: 82 y/o M with a extensive PMHx was admitted for evaluation and management of sepsis due to R ankle cellulitis. -Fever, his WBC was elevated, lactate levels were increased and became hypotensive. Criteria for sepsis is met PLAN: --Admit to ICU --Levophed initiated. --R femoral tripple lumen catheter placement. --Podiatry consult. --ID consult, Dr Vazquez. --on IV Cefepime and Vancomycin --Home meds resumed --Continue management as ordered. Case discussed with Dr Gerardo Escobar PGY-2 - Date & Time Date: 12/30/17 Time: 10:00
--- NOTE | 2017-12-30 19:10 | CARD ---
APPROVED REPORT Date of service: 12/30/2017 EXAM: Two-dimensional and M-mode echocardiogram with Doppler and color Doppler. Other Information Quality : GoodRhythm : Pacemaker INDICATION LV Function:SystolicDiastolic Surgery/Intervention Pacemaker: 2D DIMENSIONS IVSd1.42 (0.7-1.1cm)LVDd5.06 (3.9-5.9cm) LVOT Diameter2.68 (1.8-2.4cm)PWd1.25 (0.7-1.1cm) IVSs1.72 (0.8-1.2cm)LVDs3.68 (2.5-4.0cm) FS (%) 27.3 %PWs1.64 (0.8-1.2cm) M-Mode DIMENSIONS Left Atrium (MM)5.63 (2.5-4.0cm)IVSd1.13 (0.7-1.1cm) Aortic Root3.18 (2.2-3.7cm)LVDd6.35 (4.0-5.6cm) Aortic Cusp Exc.1.29 (1.5-2.0cm)PWd1.19 (0.7-1.1cm) IVSs1.32 cmFS (%) 41 % LVDs3.74 (2.0-3.8cm)PWs1.69 cm Aortic Valve AoV Peak Nmbypnqw001.3cm/sAoV VTI39.7cmAO Peak GR.24mmHg LVOT Peak Synbbiyt527.9cm/sLVOT VTI17.90cmAO Mean GR.14mmHg TAMMY (VMAX)1.50zk0UCO (VTI)1.21cm2 Mitral Valve E/A ratio0.0 TDI E/Lateral E'0.0E/Medial E'0.0 Tricuspid Valve TR Peak Lokyraav280xm/sRAP [id number] Peak Gr.26mmHg [id number] LEFT VENTRICLE The left ventricle is normal size. There is borderline to mild concentric left ventricular hypertrophy. The left ventricular systolic function is normal. The estimated ejection fraction is 55-60% No regional wall motion abnormalities noted.. The left ventricular diastolic function is inconclusive due to paced rhythm No left ventricle thrombus noted on this study. There is no ventricular septal defect visualized. There is no left ventricular aneurysm. There is no mass noted in the left ventricle. RIGHT VENTRICLE The right ventricle is normal size. There is normal right ventricular wall thickness. The right ventricular systolic function is normal. Pacemaker lead in seen in RV. ATRIA The left atrium is moderately dilated. The right atrium size is normal. The interatrial septum is intact with no evidence for an atrial septal defect. AORTIC VALVE The aortic valve is normal in structure. Mild aortic regurgitation is present. There is aortic valvular sclerosis. There is no aortic valvular vegetation. MITRAL VALVE The mitral valve is normal in structure. There is no evidence of mitral valve prolapse. There is no mitral valve stenosis. There is trace mitral valve regurgitation noted. TRICUSPID VALVE The tricuspid valve is normal in structure. There is mild tricuspid valve regurgitation noted. RVSP is calculated at 36 mm Hg. There is no tricuspid valve prolapse or vegetation. There is no tricuspid valve stenosis. PULMONIC VALVE The pulmonary valve is normal in structure. There is no pulmonic valvular regurgitation. There is no pulmonic valvular stenosis. GREAT VESSELS The aortic root is normal in size. The ascending aorta is normal in size. The pulmonary artery is normal. The IVC is dilated. PERICARDIAL EFFUSION There is no pericardial effusion. There is no pleural effusion. <Conclusion> There is borderline to mild concentric left ventricular hypertrophy. The estimated ejection fraction is 55-60% The left ventricular diastolic function is inconclusive due to paced rhythm Pacemaker lead in seen in RV. The left atrium is moderately dilated. Mild aortic regurgitation is present. There is mild tricuspid valve regurgitation noted. RVSP is calculated at 36 mm Hg. The IVC is dilated.
[2017-12-30] MEDS: Clindamycin 600mg/50ml D5W 600 MG/50 ML VIAL IVPB SCH (21:01)
--- NOTE | 2017-12-31 02:45 | CON ---
DATE: 12/30/2017 HISTORY OF PRESENT ILLNESS: The patient is an 82-year-old man who has had multiple admissions to the hospital and the patient came to the emergency room with past history of chronic leg ulcer which is getting worse. The patient apparently fell at home, causing trauma and pain on the left shoulder and the right leg. He stated he did not hit his head and there was no loss of consciousness. There is no drainage from the leg ulcer for which I think I am being consulted. PAST MEDICAL HISTORY: Includes CHF, hypothyroidism, atrial fibrillation, and chronic leg ulcer. PHYSICAL EXAMINATION: GENERAL: The patient is alert, but mildly confused. VITAL SIGNS: His temperature in the emergency room on admission was 102.9. At present, he is afebrile. HEENT: Within normal limits. NECK: Supple. LUNGS: Have decreased breath sounds bilaterally. HEART: Atrial fibrillation. ABDOMEN: Soft. Positive bowel sounds. EXTREMITIES: Show a nonhealing ulcer with cellulitis. Podiatry is being consulted on this case also. LABORATORY DATA: Creatinine on admission in the emergency room was 1.2, and his GFR is 58. Today, his creatinine is 2 and a GFR is 32. He also has a total creatinine kinase of 1401. AST is 67, and his total bilirubin is 1.4. White count is 23.9 today, which has increased from 22.9 from yesterday. Platelet count is 160,000. He has a left shift. Microbiology: The cultures are presently pending, but he has got past cultures from the leg of Klebsiella oxytoca, Pseudomonas stutzeri, and MRSA. The patient is also being checked for UTI. PLAN: At present time, I discontinued the vancomycin after noting the decrease in renal function in the past 24 hours and put him on clindamycin. We will continue Maxipime. The plan is to review tomorrow and decide whether to continue to hold vancomycin. I have also ordered random vancomycin level. Brandon Vazquez MD
[2017-12-31 06:06] LABS: BASO # 0.1 K/uL (0.0-0.2); BASO % 0.4 % (0.0-2.0); EOS # 0.2 K/uL (0.0-0.7); EOS % 0.9 % (0.0-4.0); LYMPH # 1.2 K/uL (1.0-4.3); LYMPH % 7.1 % (20.0-40.0); MEAN CELL VOLUME 98.3 fl (80.0-94.0); MEAN CORPUSCULAR HEMOGLOBIN 32.5 pg (27.0-31.0); MEAN CORPUSCULAR HGB CONC 33.1 g/dL (33.0-37.0); MEAN PLATELET VOLUME 8.6 fl (7.2-11.7); MONO # 1.2 K/uL (0.0-0.8); MONO % 6.6 % (0.0-10.0); NEUT # 14.8 K/uL (1.8-7.0); RBC 3.08 Mil/uL (4.40-5.90); RED CELL DISTRIBUTION WIDTH 13.9 % (11.5-14.5); WHITE BLOOD COUNT 17.4 K/uL (4.8-10.8)
[2017-12-31] MEDS: Cefepime 1 GM in Sodium Chloride 0.9% 100 ML IVPB SCH ×3 (06:10→21:17)
[2017-12-31 06:38] LABS: ALB/GLOB RATIO 0.8 (1.0-2.1); ALBUMIN 2.7 g/dL (3.5-5.0); CALCIUM 8.1 mg/dL (8.4-10.2)
[2017-12-31] MEDS: Levothyroxine 175 MCG TAB PO SCH (07:11)
[2017-12-31] MEDS: Clindamycin 600mg/50ml D5W 600 MG/50 ML VIAL IVPB SCH ×2 (09:32→20:32)
[2017-12-31] MEDS: CYANOCOBALAMIN (VITAMIN B-12) 250 MCG TABLET PO SCH (09:33)
--- NOTE | 2017-12-31 13:21 | CP.PCM.PN ---
Subjective - Date & Time of Evaluation Date of Evaluation: 12/31/17 Time of Evaluation: 13:19 - Subjective Subjective: Podiatry progress note for Dr. Vergara, 82 year old male with PMH of heart disease and past right lower leg ulceration present to the ED for chronic right lower leg ulceration and s/p fall. States he was trasnferred to the ICU after his blood pressure had dropped. Feels better now. denies f/n/v/sob. AAox3 and in NAD. Objective - Vital Signs/Intake and Output Vital Signs (last 24 hours): Temp Pulse Resp BP Pulse Ox 98.4 F 76 24 114/78 100 12/31/17 12:00 12/31/17 12:00 12/31/17 12:00 12/31/17 12:00 12/31/17 12:00 Intake and Output: 12/31/17 12/31/17 06:59 18:59 Intake Total 320 254 Output Total 1650 Balance -1330 254 - Medications Medications: Current Medications Acetaminophen (Tylenol 325mg Tab) 650 mg PO Q4 PRN PRN Reason: Fever >100.4 F Last Admin: 12/29/17 21:07 Dose: 650 mg Cyanocobalamin (Vitamin B-12) 250 mcg PO DAILY BRIAN Last Admin: 12/31/17 09:33 Dose: 250 mcg Ergocalciferol (Drisdol 50,000 Intl Units Cap) 1 cap PO MON BRIAN Cefepime HCl 1 gm/ Sodium (Chloride) 100 mls @ 100 mls/hr IVPB Q8H BRIAN; Protocol Last Admin: 12/31/17 06:10 Dose: 100 mls/hr Clindamycin Phosphate (Cleocin) 600 mg in 50 mls @ 50 mls/hr IVPB Q12 BRIAN; Protocol Last Admin: 12/31/17 09:32 Dose: 50 mls/hr Ketorolac Tromethamine (Toradol) 10 mg PO Q6 PRN PRN Reason: Pain, moderate (4-7) Levothyroxine Sodium (Synthroid) 175 mcg PO DAILY@0630 BRIAN Last Admin: 12/31/17 07:11 Dose: 175 mcg - Labs Labs: 12/31/17 04:50 12/31/17 04:50 PT 26.7 Seconds (9.8-13.1) H 12/30/17 04:25 INR 2.3 12/30/17 04:25 APTT 40.0 Seconds (25.6-37.1) H 12/30/17 04:25 - Constitutional Appears: Well, Non-toxic - Head Exam Head Exam: ATRAUMATIC - Extremities Exam Additional comments: Vasc: DP and PT 1/4, temperature gradient cool to cool, CFT <4 seconds to the digits, edema noted to the LE bilaterally Ortho: MM is 5/5 in all four compartments, tenderness noted to palpation surrounding ulceration site Neuro: sensation slightly diminished Derm: ulceration on the lateral aspect of lower 1/3 of the right leg measuring approximately 3.5 x 3.0 x .2. Wound base is fibro/granular. Mild yellow serous drainage noted, no odor, no purulence noted, hyperpigmentation of the skin noted extending to the anterior lateral leg. No probe to bone, no undermining, no tunneling noted - Neurological Exam Neurological Exam: Alert, Awake Assessment and Plan - Assessment and Plan (Free Text) Assessment: 82 year old male with PMH of heart disease and history of right lower leg ulceration present to the ED for right lower leg ulceration and cellulitis Plan: Patient was examined and evaluated Charts, labs, vitals reviewed (afebrile, WBC=17.4) X-ray reviewed- no fracture or destructive lesion noted; no OM or acute pathology Ulceration cleansed, dressed with betadine, 4x4, kerlix Wound culture: klebsiella sp start broad spectrum IV antibiotics Leg dressed with xeroform, DSD Podiatry will continue to follow the patient
--- NOTE | 2017-12-31 14:11 | CP.CCUPN ---
CCU Subjective - Physician Review Subjective (Free Text): Awake, alert and pleasant, no distress, finally weaned off Levophed , time spent on vasopressors was less than 24H, denies any dizziness, SOB, chest discomfort, chills, nor any abdominal complaints. Afebrile, no fever spikes last 24H, BP 128/70, HR 66 in A Fib. ROS: All pertinent Nursing notes reviewed, 10system review shows no pertinent negs or positives. PMSFH: All other Nursing and physician documentation reviewed to date; no new pertinent info noted relevant to current medical problems. No other distress noted: EXAM- HEENT: no icterus, pupils equal and reactive NECK: no visible JVD, supple, carotids equal upstroke bilat/no bruits, CHEST: decreased BS bases, no wheezes audible. HEART: irregular, distant, S1S2, no murmur audible, no rubs. ABD: soft, no increased distention, no focal tenderness, no HSM. BS hypoactive EXT: bilat edema, no peripheral/ digital cyanosis, no calf tenderness or palpable cords, distal pulses intact and symmetrical, distal RLE ulcer with persistent serous drainage NEURO: no gross focal motor deficits SKIN: no rashes LABS: WBC= 17.4 HGB= 10.0 PLTs = 164K Na= 139 K= 3.9 CL = 111 HCO3= 24 BUN/Cr= 29/1.4 BS= 91 IMPRESSIONS / MAJOR PROBLEMS NOW: 1. Septic Shock, r/o Bacteremia; etiology tract ( purulent, cloudy urine) 2. Azotemia / Dehydration / possible ATN- resolving 3. Chronic A Fib with controlled VR, on AC 4. Chronic RLE Ulcer PLAN: 1. Empiric Cefepime / Clindamycin. No urine cx results noted. Skin / Wound Cx from RLE ulcer showing Kleb. pneumoniae, sens to current abx coverage. 2. IVF hydration. 3. ECHO shows good LVEF. 4. Could remove Dong. 5. Continue warfarin AC.
--- NOTE | 2017-12-31 16:05 | CP.PCM.PN ---
Subjective - Date & Time of Evaluation Date of Evaluation: 12/31/17 Time of Evaluation: 10:40 - Subjective Subjective: 82 y/o M was rodger and examined by bedside with Dr Carrillo. Pt reports feeling well, awake and alert. Pt complains of R lower leg pain upon palpation. Pt afebrile, tolerating PO qirh No acute events overnight. Objective - Vital Signs/Intake and Output Vital Signs (last 24 hours): Temp Pulse Resp BP Pulse Ox 98.4 F 76 24 114/78 100 12/31/17 12:00 12/31/17 12:00 12/31/17 12:00 12/31/17 12:00 12/31/17 12:00 Intake and Output: 12/31/17 12/31/17 06:59 18:59 Intake Total 320 254 Output Total 1650 Balance -1330 254 - Medications Medications: Current Medications Acetaminophen (Tylenol 325mg Tab) 650 mg PO Q4 PRN PRN Reason: Fever >100.4 F Last Admin: 12/29/17 21:07 Dose: 650 mg Cyanocobalamin (Vitamin B-12) 250 mcg PO DAILY BRIAN Last Admin: 12/31/17 09:33 Dose: 250 mcg Ergocalciferol (Drisdol 50,000 Intl Units Cap) 1 cap PO MON BRIAN Cefepime HCl 1 gm/ Sodium (Chloride) 100 mls @ 100 mls/hr IVPB Q8H BRIAN; Protocol Last Admin: 12/31/17 06:10 Dose: 100 mls/hr Clindamycin Phosphate (Cleocin) 600 mg in 50 mls @ 50 mls/hr IVPB Q12 BRIAN; Protocol Last Admin: 12/31/17 09:32 Dose: 50 mls/hr Ketorolac Tromethamine (Toradol) 10 mg PO Q6 PRN PRN Reason: Pain, moderate (4-7) Levothyroxine Sodium (Synthroid) 175 mcg PO DAILY@0630 BRIAN Last Admin: 12/31/17 07:11 Dose: 175 mcg - Labs Labs: 12/31/17 04:50 12/31/17 04:50 PT 26.7 Seconds (9.8-13.1) H 12/30/17 04:25 INR 2.3 12/30/17 04:25 APTT 40.0 Seconds (25.6-37.1) H 12/30/17 04:25 - Additional Findings Additional findings: - Constitutional Appears: No Acute Distress - Head Exam Head Exam: ATRAUMATIC, NORMAL INSPECTION - Eye Exam Eye Exam: EOMI, Normal appearance - ENT Exam ENT Exam: Mucous Membranes Dry - Neck Exam Neck exam: Positive for: Full Rom. Negative for: Lymphadenopathy, Meningismus - Respiratory Exam Respiratory Exam: NORMAL BREATHING PATTERN. absent: Rhonchi, Wheezes, Respiratory Distress - Cardiovascular Exam Cardiovascular Exam: REGULAR RHYTHM, +S1, +S2 - GI/Abdominal Exam GI & Abdominal Exam: Normal Bowel Sounds, Soft. absent: Distended, Guarding, Hernia, Tenderness - Neurological Exam Neurological exam: Alert - Skin Additional comments: Ulcer covered by clean and intact dressing of R lower leg, mild tenderness proximally to dressing on pre-tibial area and posterior lower leg areas. Sensation is diminished on R foot. SILT on L foot and lower leg. Assessment and Plan - Assessment and Plan (Free Text) Assessment: 82 y/o M with a extensive PMHx was admitted for evaluation and management of sepsis due to R ankle cellulitis. -Fever, his WBC was elevated, lactate levels were increased and became hypotensive. Criteria for sepsis is met PLAN: --Afebrile, tolerating PO --Levophed was discontinued yesterday. --X-ray of LLE: no fracture or destructive lesion, no OM or acute pathology --Podiatry on board: dressing was changed after proper wound care. --Wound Cx growing Klebsiella Pneumo --ID consult, Dr Vazquez. --Echocardiogram: LVEF 55-60% which is normal. No vegetations. --Continue cardiac monitoring. --on IV Cefepime and Clindamycin --Continue management as ordered. Case discussed with Dr Gerardo Escobar PGY-2
[2017-12-31] MEDS ORDERED: Bisacodyl 5mg EC Tab PO PRN (17:12)
[2017-12-31 18:01] LABS: INR 2.2; PROTHROMBIN TIME 25.4 Seconds (9.8-13.1)
[2018-01-01 04:35] LABS: HEMOGLOBIN 9.2 g/dL (12.0-18.0); MEAN CELL VOLUME 98.3 fl (80.0-94.0); MEAN CORPUSCULAR HEMOGLOBIN 32.5 pg (27.0-31.0); MEAN CORPUSCULAR HGB CONC 33.1 g/dL (33.0-37.0); RBC 2.82 Mil/uL (4.40-5.90); RED CELL DISTRIBUTION WIDTH 13.8 % (11.5-14.5); WHITE BLOOD COUNT 11.4 K/uL (4.8-10.8)
[2018-01-01 04:53] LABS: INR 2.5
[2018-01-01 05:09] LABS: ALB/GLOB RATIO 0.8 (1.0-2.1); ALBUMIN 2.5 g/dL (3.5-5.0); ALT/SGPT 31 U/L (21-72); AST/SGOT 39 U/L (17-59); BLOOD UREA NITROGEN 22 mg/dl (9-20); CALCIUM 8.1 mg/dL (8.4-10.2); GFR NON-AFRICAN AMERICAN > 60
[2018-01-01] MEDS: Cefepime 1 GM in Sodium Chloride 0.9% 100 ML IVPB SCH ×3 (05:55→22:23)
[2018-01-01] MEDS: Levothyroxine 175 MCG TAB PO SCH (05:56)
--- NOTE | 2018-01-01 10:09 | PQF ---
PROVIDER RESPONSE TEXT: Jolene, I wrote this in my note as Septic Shock already. REVIEWER QUERY TEXT: Shock Type Shock is documented in the Medical Record. Please specify the type Such as: -- Cardiogenic -- Septic -- Hypovolemic -- Circulatory -- Hemorrhagic -- Traumatic -- Anaphylactic -- Other, please specify 12/30 Critical Care note includes: Events since admission reviewed; awake and alert but disoriented t o place and time, no obvious distress, repeat serial Lactate has normalized; BP remains low despite 3 liters fluid challenge, TLC placed emergently in ICU for hypotension / shock and vasopressor support . --Most likely source of fevers may be due more to infected tract than R leg ulcer;preliminarily ke ep patient on Cefepime / Vanco for now; continue Warfarin, and THRT, assess free T4 level. TSH is nor mal. Will stop IVFs infusing at 200ml / hr and give fluid challenges prn if further fluids are needed . Do not feel jaw lesions are a primary source of patient?s sepsis / fevers. The patient's Clinical Indicators include: - Query created by: Jolene Mei on 12/31/2017 2:10 PM Electronically signed by: Philippe Scanlon DO 01/01/2018 10:06 AM
[2018-01-01] MEDS: Clindamycin 600mg/50ml D5W 600 MG/50 ML VIAL IVPB SCH ×2 (10:10→20:51)
[2018-01-01] MEDS: CYANOCOBALAMIN (VITAMIN B-12) 250 MCG TABLET PO SCH (10:12)
--- NOTE | 2018-01-01 10:32 | CP.CCUPN ---
CCU Subjective - Physician Review Subjective (Free Text): Awake, alert and remains off Levophed this AM, but required resumption of vasopressor support overnight. Afebrile, no fever spikes last 24H, BP 108/70, HR 60 paced ryhtym. Fluid balance neg 2 L over last 24H. ROS: All pertinent Nursing notes reviewed, 10system review shows no pertinent negs or positives. PMSFH: All other Nursing and physician documentation reviewed to date; no new pertinent info noted relevant to current medical problems. No other distress noted: EXAM- HEENT: no icterus, pupils equal and reactive NECK: no visible JVD, supple, carotids equal upstroke bilat/no bruits, CHEST: decreased BS bases, no wheezes audible. HEART: irregular, distant, S1S2, no murmur audible, no rubs. ABD: soft, no increased distention, no focal tenderness, no HSM. BS hypoactive EXT: bilat edema, no peripheral/ digital cyanosis, no calf tenderness or pal pable cords, distal pulses intact and symmetrical, distal RLE ulcer with persistent serous drainage NEURO: no gross focal motor deficits SKIN: no rashes LABS: WBC= 11.4 HGB= 9.2 PLTs = 170K Na= 138 K= 4.0 CL = 110 HCO3= 24 BUN/Cr= 22/1.0 BS= 92 IMPRESSIONS / MAJOR PROBLEMS NOW: 1. Septic Shock, r/o Bacteremia; etiology tract ( purulent, cloudy urine) 2. Azotemia / Dehydration / possible ATN- resolving 3. Chronic A Fib with controlled VR, on AC 4. Chronic RLE Ulcer PLAN: 1. Empiric Cefepime / Clindamycin. Uine cx results noted + GNR, too. Skin / Wound Cx from RLE ulcer showing Kleb. pneumoniae, sens to current abx coverage. 2. IVF hydration. 3. ECHO shows good LVEF. 4. Continue warfarin AC. 5. Stable for transfer to [address] [place] [address].
[2018-01-02] MEDS: Cefepime 1 GM in Sodium Chloride 0.9% 100 ML IVPB SCH ×3 (05:06→21:04)
[2018-01-02] MEDS: Levothyroxine 175 MCG TAB PO SCH (06:08)
[2018-01-02 06:12] LABS: HEMOGLOBIN 9.7 g/dL (12.0-18.0); MEAN CELL VOLUME 97.7 fl (80.0-94.0); MEAN CORPUSCULAR HEMOGLOBIN 32.8 pg (27.0-31.0); MEAN CORPUSCULAR HGB CONC 33.6 g/dL (33.0-37.0); RBC 2.95 Mil/uL (4.40-5.90); RED CELL DISTRIBUTION WIDTH 13.8 % (11.5-14.5); WHITE BLOOD COUNT 10.5 K/uL (4.8-10.8)
[2018-01-02 06:21] LABS: BLOOD UREA NITROGEN 22 mg/dl (9-20); CALCIUM 8.5 mg/dL (8.4-10.2); GFR NON-AFRICAN AMERICAN > 60
[2018-01-02] MEDS: Clindamycin 600mg/50ml D5W 600 MG/50 ML VIAL IVPB SCH ×2 (08:58→21:05)
[2018-01-02] MEDS: CYANOCOBALAMIN (VITAMIN B-12) 250 MCG TABLET PO SCH (08:59)
--- NOTE | 2018-01-02 12:48 | CP.PCM.PN ---
Subjective - Date & Time of Evaluation Date of Evaluation: 01/02/18 Time of Evaluation: 12:46 - Subjective Subjective: Podiatry progress note for Dr. Davenport 82 year old male seen and evaluated at bedside. Seen resting comfortably and notes improved health. States he was trasnferred to the ICU after his blood pressure had dropped. Denies f/n/v/sob. AAox3 and in NAD. Objective - Vital Signs/Intake and Output Vital Signs (last 24 hours): Temp Pulse Resp BP Pulse Ox 97.5 F L 60 15 107/66 100 01/02/18 12:00 01/02/18 12:00 01/02/18 12:00 01/02/18 12:00 01/02/18 12:00 Intake and Output: 01/02/18 01/02/18 06:59 18:59 Intake Total 400 530 Output Total 1200 Balance -800 530 - Medications Medications: Current Medications Acetaminophen (Tylenol 325mg Tab) 650 mg PO Q4 PRN PRN Reason: Fever >100.4 F Last Admin: 12/29/17 21:07 Dose: 650 mg Bisacodyl (Dulcolax) 10 mg PO DAILY PRN PRN Reason: Constipation Last Admin: 01/02/18 09:00 Dose: 10 mg Cyanocobalamin (Vitamin B-12) 250 mcg PO DAILY [facility] Last Admin: 01/02/18 08:59 Dose: 250 mcg Ergocalciferol (Drisdol 50,000 Intl Units Cap) 1 cap PO MON BRIAN Cefepime HCl 1 gm/ Sodium (Chloride) 100 mls @ 100 mls/hr IVPB Q8H [facility]; Protocol Last Admin: 01/02/18 05:06 Dose: 100 mls/hr Clindamycin Phosphate (Cleocin) 600 mg in 50 mls @ 50 mls/hr IVPB Q12 [facility]; Protocol Last Admin: 01/02/18 08:58 Dose: 50 mls/hr Ketorolac Tromethamine (Toradol) 10 mg PO Q6 PRN PRN Reason: Pain, moderate (4-7) Levothyroxine Sodium (Synthroid) 175 mcg PO DAILY@0630 [facility] Last Admin: 01/02/18 06:08 Dose: 175 mcg - Labs Labs: 01/02/18 05:20 01/02/18 05:20 PT 28.0 Seconds (9.8-13.1) H 01/01/18 04:12 INR 2.5 01/01/18 04:12 APTT 40.0 Seconds (25.6-37.1) H 12/30/17 04:25 - Constitutional Appears: Well, Non-toxic, No Acute Distress - Head Exam Head Exam: ATRAUMATIC, NORMOCEPHALIC - Extremities Exam Additional comments: Vasc: DP and PT 1/4, temperature gradient cool to cool, CFT <4 seconds to the digits, edema noted to the LE bilaterally Ortho: MM is 5/5 in all four compartments, tenderness noted to palpation surrounding ulceration site Neuro: sensation slightly diminished Derm: ulceration on the lateral aspect of lower 1/3 of the right leg measuring approximately 3.5 x 3.0 x .2. Wound base is fibro/granular. Mild yellow serous drainage noted, no odor, no purulence noted, hyperpigmentation of the skin noted extending to the anterior lateral leg. No probe to bone, no undermining, no tunneling noted - Neurological Exam Neurological Exam: Alert, Awake, Oriented x3 - Psychiatric Exam Psychiatric exam: Normal Affect, Normal Mood Assessment and Plan - Assessment and Plan (Free Text) Assessment: 82 year old male with right lower leg ulceration and cellulitis Plan: Patient was examined and evaluated Discussed in detail with Dr. Davenport Afebrile, absent leukocytosis X-ray reviewed- no fracture or destructive lesion noted; no OM or acute pathology Ulceration cleansed, dressed with betadine, 4x4, kerlix Wound culture: klebsiella sp ID consult, recs appreciated Continue broad spectrum IV antibiotics Leg dressed with xeroform, DSD Podiatry will continue to follow the patient
--- NOTE | 2018-01-02 15:52 | CP.PCM.PN ---
Subjective - Date & Time of Evaluation Date of Evaluation: 01/02/18 Time of Evaluation: 15:50 - Subjective Subjective: I D NOTE URINE CULTURE SHOWS KLEBSIELLA OXYTOCA SENSITIVE TO MAXIPEME CONTINUE ALONG C CLINDAMYCIN ALERT Objective - Vital Signs/Intake and Output Vital Signs (last 24 hours): Temp Pulse Resp BP Pulse Ox 97.5 F L 60 19 102/63 100 01/02/18 12:00 01/02/18 15:00 01/02/18 15:00 01/02/18 15:00 01/02/18 14:00 Intake and Output: 01/02/18 01/02/18 06:59 18:59 Intake Total 400 770 Output Total 1200 Balance -800 770 - Medications Medications: Current Medications Acetaminophen (Tylenol 325mg Tab) 650 mg PO Q4 PRN PRN Reason: Fever >100.4 F Last Admin: 12/29/17 21:07 Dose: 650 mg Bisacodyl (Dulcolax) 10 mg PO DAILY PRN PRN Reason: Constipation Last Admin: 01/02/18 09:00 Dose: 10 mg Cyanocobalamin (Vitamin B-12) 250 mcg PO DAILY BRIAN Last Admin: 01/02/18 08:59 Dose: 250 mcg Ergocalciferol (Drisdol 50,000 Intl Units Cap) 1 cap PO MON BRIAN Cefepime HCl 1 gm/ Sodium (Chloride) 100 mls @ 100 mls/hr IVPB Q8H [facility] [place]; Protocol Last Admin: 01/02/18 13:40 Dose: 100 mls/hr Clindamycin Phosphate (Cleocin) 600 mg in 50 mls @ 50 mls/hr IVPB Q12 [facility]; Protocol Last Admin: 01/02/18 08:58 Dose: 50 mls/hr Ketorolac Tromethamine (Toradol) 10 mg PO Q6 PRN PRN Reason: Pain, moderate (4-7) Levothyroxine Sodium (Synthroid) 175 mcg PO DAILY@0630 [facility] Last Admin: 01/02/18 06:08 Dose: 175 mcg - Labs Labs: 01/02/18 05:20 01/02/18 05:20 PT 28.0 Seconds (9.8-13.1) H 01/01/18 04:12 INR 2.5 01/01/18 04:12 APTT 40.0 Seconds (25.6-37.1) H 12/30/17 04:25
--- NOTE | 2018-01-02 17:20 | CP.CCUPN ---
CCU Subjective - Physician Review Events Since Last Encounter (Free Text): 01/02/18 17:13 alert and awake, off pressors, CCU Objective - Vital Signs / Intake & Output Vital Signs (Last 4 hours): Vital Signs Temp Pulse Resp BP Pulse Ox 01/02/18 17:00 60 21 109/66 98 01/02/18 16:00 98.2 F 60 22 111/73 98 01/02/18 15:00 60 19 102/63 01/02/18 14:00 60 17 98/64 L 100 Intake and Output (Last 8hrs): Intake & Output 01/02/18 01/02/18 01/02/18 06:59 14:59 22:59 Intake Total 250 770 Output Total 1200 Balance -950 770 Weight 229 lb Intake: Intake, Piggyback 100 50 Oral 100 720 Tube Feeding 50 Output: Urine 1200 Urethral (Dong) 1200 Other: # Bowel Movements 0 - Physical Exam Narrative Physical Exam (Free Text): 01/02/18 17:13 P/E neck: No JVD Lungs: no ronchi crackles Abdomen: soft, no tenderness Ext: No edema Heart: No gallop - Medications Active Medications: Active Medications Generic Name Dose Route Start Last Admin Trade Name Freq PRN Reason Stop Dose Admin Acetaminophen 650 mg 12/29/17 20:57 12/29/17 21:07 Tylenol 325mg Tab PO 650 mg Q4 PRN Administration Fever >100.4 F Bisacodyl 10 mg 12/31/17 17:12 01/02/18 09:00 Dulcolax PO 10 mg DAILY PRN Administration Constipation Cyanocobalamin 250 mcg 12/30/17 09:00 01/02/18 08:59 Vitamin B-12 PO 250 mcg DAILY BRIAN Administration Ergocalciferol 1 cap 01/04/18 09:00 Drisdol 50,000 Intl Units Cap PO MON BRIAN Cefepime HCl 1 gm/ Sodium 100 mls @ 100 mls/hr 12/30/17 06:00 01/02/18 13:40 Chloride IVPB 100 mls/hr Q8H BRIAN Administration Protocol Clindamycin Phosphate 600 mg in 50 mls @ 50 mls/hr 12/30/17 21:00 01/02/18 08:58 Cleocin IVPB 50 mls/hr Q12 BRIAN Administration Protocol Ketorolac Tromethamine 10 mg 12/30/17 01:22 Toradol PO Q6 PRN Pain, moderate (4-7) Levothyroxine Sodium 175 mcg 12/30/17 06:30 01/02/18 06:08 Synthroid PO 175 mcg DAILY@0630 [facility] Administration - Patient Studies Lab Studies: Microbiology Studies 12/29/17 16:40 Blood Culture - Preliminary Blood-Venous NO GROWTH AFTER 4 DAYS 12/31/17 14:14 Blood Culture - Preliminary Blood-Venous NO GROWTH AFTER 48 HOURS 12/29/17 18:45 Urine Culture - Final Urine,Random Klebsiella Oxytoca 12/30/17 14:12 Urine Culture - Final Urine,Dong Klebsiella Oxytoca 12/29/17 18:45 Blood Culture - Preliminary Blood-Venous NO GROWTH AFTER 3 DAYS 12/29/17 17:00 Gram Stain - Final Leg - Right Wound Culture - Final Klebsiella Pneumoniae Ssp Pneu Serratia Marcescens Streptococcus Species Lab Studies 01/02/18 01/02/18 Range/Units 05:20 05:20 WBC 10.5 (4.8-10.8) K/uL RBC 2.95 L (4.40-5.90) Mil/uL Hgb 9.7 L (12.0-18.0) g/dL Hct 28.8 L (35.0-51.0) % MCV 97.7 H (80.0-94.0) fl MCH 32.8 H (27.0-31.0) pg MCHC 33.6 (33.0-37.0) g/dL RDW 13.8 (11.5-14.5) % Plt Count 188 (130-400) K/uL Sodium 138 (132-148) mmol/l Potassium 4.1 (3.6-5.0) MMOL/L Chloride 106 (98-107) mmol/L Carbon Dioxide 26 (22-30) mmol/L Anion Gap 10 (10-20) BUN 22 H (9-20) mg/dl Creatinine 1.0 (0.8-1.5) mg/dl Est GFR ( Amer) > 60 Est GFR (Non-Af Amer) > 60 Random Glucose 89 (75-110) mg/dL Calcium 8.5 (8.4-10.2) mg/dL Laboratory Results - last 24 hr 01/02/18 01/02/18 05:20 05:20 WBC 10.5 RBC 2.95 L Hgb 9.7 L Hct 28.8 L MCV 97.7 H MCH 32.8 H MCHC 33.6 RDW 13.8 Plt Count 188 Sodium 138 Potassium 4.1 Chloride 106 Carbon Dioxide 26 Anion Gap 10 BUN 22 H Creatinine 1.0 Est GFR ( Amer) > 60 Est GFR (Non-Af Amer) > 60 Random Glucose 89 Calcium 8.5 Critical Care Progress Note - Nutrition Nutrition: Nutrition Category Date Time Status Heart Healthy Diet [DIET] Diets 12/30/17 Breakfast Active Assessment/Plan - Assessment and Plan (Free Text) Assessment: IMPRESSIONS / MAJOR PROBLEMS NOW: 1. Septic Shock, r/o Bacteremia; etiology tract ( purulent, cloudy urine), clinically improving , off pressors, renal function improved. 2. NICOLLE: Azotemia / Dehydration / possible ATN- Improving 3. Chronic A Fib with controlled VR, on AC 4. Chronic RLE Ulcer PLAN: 1. Continue Cefepime / Clindamycin. Uine cx results noted + GNR, too. Skin / Wound Cx from RLE ulcer showing Kleb. pneumoniae, sens to current abx coverage. 2. IVF hydration. 3. ECHO shows good LVEF. 4. Continue warfarin AC. 5. Stable for transfer to [address] [place] [address].
[2018-01-02 20:42] LABS: PROTHROMBIN TIME 34.1 Seconds (9.8-13.1)
[2018-01-03 05:28] LABS: INR 2.8; PROTHROMBIN TIME 31.9 Seconds (9.8-13.1)
[2018-01-03 05:30] LABS: HEMOGLOBIN 9.8 g/dL (12.0-18.0); MEAN CELL VOLUME 98.5 fl (80.0-94.0); MEAN CORPUSCULAR HEMOGLOBIN 32.5 pg (27.0-31.0); RED CELL DISTRIBUTION WIDTH 13.8 % (11.5-14.5); WHITE BLOOD COUNT 11.3 K/uL (4.8-10.8)
[2018-01-03 05:38] LABS: ALB/GLOB RATIO 0.8 (1.0-2.1); ALBUMIN 2.7 g/dL (3.5-5.0); ALT/SGPT 22 U/L (21-72); AST/SGOT 30 U/L (17-59); BLOOD UREA NITROGEN 21 mg/dl (9-20); CALCIUM 8.6 mg/dL (8.4-10.2); GFR NON-AFRICAN AMERICAN > 60
[2018-01-03] MEDS: Cefepime 1 GM in Sodium Chloride 0.9% 100 ML IVPB SCH ×3 (05:39→20:58)
[2018-01-03] MEDS: Levothyroxine 175 MCG TAB PO SCH (06:22)
[2018-01-03] MEDS: CYANOCOBALAMIN (VITAMIN B-12) 250 MCG TABLET PO SCH (08:28)
[2018-01-03] MEDS: Clindamycin 600mg/50ml D5W 600 MG/50 ML VIAL IVPB SCH ×2 (08:28→20:58)
[2018-01-04] MEDS ORDERED: Albuterol 0.083% Inhal Sol (2.5 mg/3 mL) UD INH STA (04:55)
[2018-01-04 05:30] LABS: HEMOGLOBIN 9.9 g/dL (12.0-18.0); MEAN CELL VOLUME 98.4 fl (80.0-94.0); MEAN CORPUSCULAR HEMOGLOBIN 32.7 pg (27.0-31.0); MEAN CORPUSCULAR HGB CONC 33.2 g/dL (33.0-37.0); RBC 3.02 Mil/uL (4.40-5.90); RED CELL DISTRIBUTION WIDTH 13.9 % (11.5-14.5); WHITE BLOOD COUNT 11.3 K/uL (4.8-10.8)
[2018-01-04 05:50] LABS: ALB/GLOB RATIO 0.8 (1.0-2.1); ALBUMIN 2.9 g/dL (3.5-5.0); ALT/SGPT 27 U/L (21-72); AST/SGOT 31 U/L (17-59); BLOOD UREA NITROGEN 21 mg/dl (9-20); CALCIUM 8.8 mg/dL (8.4-10.2); GFR NON-AFRICAN AMERICAN > 60
[2018-01-04 05:52] LABS: INR 2.1; PROTHROMBIN TIME 23.7 Seconds (9.8-13.1)
[2018-01-04] MEDS: Cefepime 1 GM in Sodium Chloride 0.9% 100 ML IVPB SCH ×2 (06:05→17:18)
[2018-01-04] MEDS: Levothyroxine 175 MCG TAB PO SCH (06:06)
--- NOTE | 2018-01-04 07:58 | RAD ---
Date of service: 01/04/2018 HISTORY: Wheezing, SOB COMPARISON: Portable chest 12/29/2017. 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 Reiteration is seen the left base. No definitive infiltrate now identified or other airspace disease. PLEURA: No significant pleural effusion identified, no pneumothorax apparent. CARDIOVASCULAR: Calcific atherosclerotic changes are seen related to the thoracic aorta. Stable prominent appearing cardiac silhouette. No pulmonary vascular congestion. OSSEOUS STRUCTURES: No significant abnormalities. VISUALIZED UPPER ABDOMEN: Normal. OTHER FINDINGS: None. IMPRESSION: No definite interval acute cardiopulmonary disease. Pacemaker reiterated.
--- NOTE | 2018-01-04 08:38 | CP.PCM.PN ---
Subjective - Date & Time of Evaluation Date of Evaluation: 01/04/18 Time of Evaluation: 08:38 - Subjective Subjective: Podiatry progress note for Dr. Davenport 82 year old male seen and evaluated at bedside. Seen resting comfortably and notes improved health. States he was trasnferred to the ICU after his blood pressure had dropped. Denies f/n/v/sob. AAox3 and in NAD. Objective - Vital Signs/Intake and Output Vital Signs (last 24 hours): Temp Pulse Resp BP Pulse Ox 98.1 F 60 12 117/72 100 01/04/18 08:00 01/04/18 08:00 01/04/18 08:00 01/04/18 08:00 01/04/18 08:00 Intake and Output: 01/04/18 01/04/18 06:59 18:59 Intake Total 466 Output Total 1600 Balance -1134 - Medications Medications: Current Medications Acetaminophen (Tylenol 325mg Tab) 650 mg PO Q4 PRN PRN Reason: Fever >100.4 F Last Admin: 12/29/17 21:07 Dose: 650 mg Bisacodyl (Dulcolax) 10 mg PO DAILY PRN PRN Reason: Constipation Last Admin: 01/02/18 09:00 Dose: 10 mg Cyanocobalamin (Vitamin B-12) 250 mcg PO DAILY [facility] Last Admin: 01/03/18 08:28 Dose: 250 mcg Ergocalciferol (Drisdol 50,000 Intl Units Cap) 1 cap PO MON BRIAN Clindamycin Phosphate (Cleocin) 600 mg in 50 mls @ 50 mls/hr IVPB Q12 [facility]; Protocol Last Admin: 01/03/18 20:58 Dose: 50 mls/hr Levothyroxine Sodium (Synthroid) 175 mcg PO DAILY@0630 [facility] Last Admin: 01/04/18 06:06 Dose: 175 mcg - Labs Labs: 01/04/18 04:30 01/04/18 04:30 PT 23.7 Seconds (9.8-13.1) H D 01/04/18 04:30 INR 2.1 01/04/18 04:30 APTT 40.0 Seconds (25.6-37.1) H 12/30/17 04:25 - Constitutional Appears: Well, Non-toxic, No Acute Distress - Head Exam Head Exam: ATRAUMATIC, NORMOCEPHALIC - Extremities Exam Additional comments: Vasc: DP and PT 1/4, temperature gradient cool to cool, CFT <4 seconds to the digits, edema noted to the LE bilaterally Ortho: MM is 5/5 in all four compartments, tenderness noted to palpation surrounding ulceration site Neuro: sensation slightly diminished Derm: ulceration on the lateral aspect of lower 1/3 of the right leg measuring approximately 3.5 x 3.0 x .2. Wound base is fibro/granular. Mild yellow serous drainage noted, no odor, no purulence noted, hyperpigmentation of the skin noted extending to the anterior lateral leg. No probe to bone, no undermining, no tunneling noted - Neurological Exam Neurological Exam: Alert, Awake, Oriented x3 - Psychiatric Exam Psychiatric exam: Normal Affect, Normal Mood Assessment and Plan - Assessment and Plan (Free Text) Assessment: 82 year old male with right lower leg ulceration and cellulitis Plan: Patient was examined and evaluated Discussed in detail with Dr. Davenport Afebrile, absent leukocytosis X-ray reviewed- no fracture or destructive lesion noted; no OM or acute pathology Ulceration cleansed, dressed with betadine, 4x4, kerlix Wound culture: klebsiella sp ID consult, recs appreciated, continue meds per ID Podiatry will continue to follow the patient
[2018-01-04] MEDS ORDERED: Ergocalciferol 50,000 Intl Units Cap PO SCH (09:00)
[2018-01-04] MEDS: Clindamycin 600mg/50ml D5W 600 MG/50 ML VIAL IVPB SCH ×2 (10:16→20:30)
[2018-01-04] MEDS: CYANOCOBALAMIN (VITAMIN B-12) 250 MCG TABLET PO SCH (10:17)
--- NOTE | 2018-01-04 13:58 | RAD ---
Date of service: 01/04/2018 HISTORY: PICC line placement COMPARISON: January 04, 2018 05:01. FINDINGS: LUNGS: No active pulmonary disease. PLEURA: No significant pleural effusion identified, no pneumothorax apparent. CARDIOVASCULAR: Cardiomegaly. No evidence of acute, significant cardiovascular disease. Position/ configuration of pacemaker Atherosclerotic calcifications identified primarily aortic arch. OSSEOUS STRUCTURES: No significant abnormalities. VISUALIZED UPPER ABDOMEN: Normal. OTHER FINDINGS: The tip of the PICC line is below the cavoatrial junction. This appears at the level of the diaphragm. The finding is marked on the study for review. IMPRESSION: Status post PICC line insertion via right upper extremity approach. The tip is at the level of the diaphragm. No pneumothorax.
[2018-01-05] MEDS: Cefepime 1 GM in Sodium Chloride 0.9% 100 ML IVPB SCH ×3 (01:52→16:22)
[2018-01-05 06:22] LABS: INR 1.5; PROTHROMBIN TIME 17.6 Seconds (9.8-13.1)
[2018-01-05] MEDS: Levothyroxine 175 MCG TAB PO SCH (06:41)
[2018-01-05 07:53] VITALS: RESP 20
[2018-01-05] MEDS: Clindamycin 600mg/50ml D5W 600 MG/50 ML VIAL IVPB SCH (08:35)
[2018-01-05] MEDS: CYANOCOBALAMIN (VITAMIN B-12) 250 MCG TABLET PO SCH (08:36)
--- NOTE | 2018-01-05 10:04 | RAD ---
Date of service: 01/04/2018 HISTORY: PICC placement COMPARISON: 01/04/2018 at 12:46 p.m. FINDINGS: LUNGS: No active pulmonary disease. PLEURA: No significant pleural effusion identified, no pneumothorax apparent. CARDIOVASCULAR: No aortic atherosclerotic calcification present. Normal cardiac size. No congestive change. Permanent pacemaker noted. Right PICC catheter unchanged. OSSEOUS STRUCTURES: No significant abnormalities. VISUALIZED UPPER ABDOMEN: Normal. OTHER FINDINGS: None. IMPRESSION: No acute infiltrate. No interval change.
--- NOTE | 2018-01-05 13:12 | CP.PCM.DIS ---
<Swapnil Ghotra - Last Filed: 01/05/18 16:10> Provider - Provider Date of Admission: 12/29/17 16:07 Attending physician: Kirill Carrillo MD Time Spent in preparation of Discharge (in minutes): 37 Diagnosis - Discharge Diagnosis (1) Ulcer of ankle Status: Acute (2) Infected wound Status: Acute (3) CKD (chronic kidney disease) stage 2, GFR 60-89 ml/min Status: Acute Hospital Course - Lab Results Lab Results: Micro Results 12/31/17 14:14 Blood-Venous Blood Culture - Preliminary NO GROWTH AFTER 4 DAYS 12/29/17 18:45 Blood-Venous Blood Culture - Final NO GROWTH AFTER 5 DAYS 12/29/17 18:45 Blood-Venous Gram Stain - Final TEST NOT PERFORMED 12/29/17 16:40 Blood-Venous Blood Culture - Final NO GROWTH AFTER 5 DAYS 12/29/17 16:40 Blood-Venous Gram Stain - Final TEST NOT PERFORMED 12/29/17 18:45 Urine,Random Urine Culture - Final Klebsiella Oxytoca 12/30/17 14:12 Urine,Dong Urine Culture - Final Klebsiella Oxytoca 12/29/17 17:00 Leg - Right Gram Stain - Final 12/29/17 17:00 Leg - Right Wound Culture - Final Klebsiella Pneumoniae Ssp Pneu Serratia Marcescens Streptococcus Species 12/30/17 14:12 Nose MRSA Culture (Admit) - Final MRSA NOT DETECTED Most Recent Lab Values WBC 11.3 K/uL (4.8-10.8) H 01/04/18 04:30 RBC 3.02 Mil/uL (4.40-5.90) L 01/04/18 04:30 Hgb 9.9 g/dL (12.0-18.0) L 01/04/18 04:30 Hct 29.7 % (35.0-51.0) L 01/04/18 04:30 MCV 98.4 fl (80.0-94.0) H 01/04/18 04:30 MCH 32.7 pg (27.0-31.0) H 01/04/18 04:30 MCHC 33.2 g/dL (33.0-37.0) 01/04/18 04:30 RDW 13.9 % (11.5-14.5) 01/04/18 04:30 Plt Count 231 K/uL (130-400) 01/04/18 04:30 MPV 8.6 fl (7.2-11.7) 12/31/17 04:50 Neut % (Auto) 85.0 % (50.0-75.0) H 12/31/17 04:50 Lymph % (Auto) 7.1 % (20.0-40.0) L 12/31/17 04:50 [place] % (Auto) 6.6 % (0.0-10.0) 12/31/17 04:50 Eos % (Auto) 0.9 % (0.0-4.0) 12/31/17 04:50 Baso % (Auto) 0.4 % (0.0-2.0) 12/31/17 04:50 Neut # (Auto) 14.8 K/uL (1.8-7.0) H 12/31/17 04:50 Lymph # (Auto) 1.2 K/uL (1.0-4.3) 12/31/17 04:50 [place] # (Auto) 1.2 K/uL (0.0-0.8) H 12/31/17 04:50 Eos # (Auto) 0.2 K/uL (0.0-0.7) 12/31/17 04:50 Baso # (Auto) 0.1 K/uL (0.0-0.2) 12/31/17 04:50 Neutrophils % (Manual) 93 % (42-75) H 12/29/17 13:14 Lymphocytes % (Manual) 3 % (20-50) L 12/29/17 13:14 Monocytes % (Manual) 4 % (0-10) 12/29/17 13:14 Toxic Granulation Present 12/29/17 13:14 Platelet Estimate Normal (NORMAL) 12/29/17 13:14 RBC Morphology Normal (NORMAL) 12/29/17 13:14 PT 17.6 Seconds (9.8-13.1) H D 01/05/18 06:00 INR 1.5 01/05/18 06:00 APTT 40.0 Seconds (25.6-37.1) H 12/30/17 04:25 pO2 17 mm/Hg (30-55) L 12/29/17 16:22 VBG pH 7.34 (7.32-7.43) 12/29/17 16:22 VBG pCO2 58 mmHg (40-60) 12/29/17 16:22 VBG HCO3 25.7 mmol/L 12/29/17 16:22 VBG Total CO2 33.1 mmol/L (22-28) H 12/29/17 16:22 VBG O2 Sat (Calc) 23.3 % (40-65) L 12/29/17 16:22 VBG Base Excess 3.8 mmol/L (0.0-2.0) H 12/29/17 16:22 VBG Potassium 4.7 mmol/L (3.6-5.2) 12/29/17 16:22 Sodium 134.0 mmol/L (132-148) 12/29/17 16:22 Chloride 101.0 mmol/L (98-107) 12/29/17 16:22 Glucose 133 mg/dL (75-110) H 12/29/17 16:22 Lactate 3.1 mmol/L (0.7-2.1) H 12/29/17 16:22 FiO2 21.0 % 12/29/17 16:22 Sodium 137 mmol/l (132-148) 01/04/18 04:30 Potassium 4.7 MMOL/L (3.6-5.0) 01/04/18 04:30 Chloride 102 mmol/L (98-107) 01/04/18 04:30 Carbon Dioxide 27 mmol/L (22-30) 01/04/18 04:30 Anion Gap 13 (10-20) 01/04/18 04:30 BUN 21 mg/dl (9-20) H 01/04/18 04:30 Creatinine 0.9 mg/dl (0.8-1.5) 01/04/18 04:30 Est GFR ( Amer) > 60 01/04/18 04:30 Est GFR (Non-Af Amer) > 60 01/04/18 04:30 POC Glucose (mg/dL) 126 mg/dL (65-110) H 12/29/17 23:48 Random Glucose 82 mg/dL (75-110) 01/04/18 04:30 Lactic Acid 1.0 MMOL/L (0.7-2.1) 01/01/18 04:12 Calcium 8.8 mg/dL (8.4-10.2) 01/04/18 04:30 Phosphorus 2.8 mg/dl (2.5-4.5) 12/30/17 04:25 Magnesium 1.2 MG/DL (1.6-2.3) L 12/30/17 04:25 Total Bilirubin 1.1 mg/dl (0.2-1.3) 01/04/18 04:30 AST 31 U/L (17-59) 01/04/18 04:30 ALT 27 U/L (21-72) 01/04/18 04:30 Alkaline Phosphatase 82 U/L (38-126) 01/04/18 04:30 Total Creatine Kinase 1401 U/L (55-170) H 12/30/17 04:25 Total Protein 6.4 G/DL (6.3-8.2) 01/04/18 04:30 Albumin 2.9 g/dL (3.5-5.0) L 01/04/18 04:30 Globulin 3.4 gm/dL (2.2-3.9) 01/04/18 04:30 Albumin/Globulin Ratio 0.8 (1.0-2.1) L 01/04/18 04:30 TSH 3rd Generation 2.77 mIU/ML (0.46-4.68) 12/30/17 04:25 Venous Blood Potassium 4.7 mmol/L (3.6-5.2) 12/29/17 16:22 Urine Color Ak[place] (YELLOW) 12/30/17 14:12 Urine Clarity Turbid (Clear) 12/30/17 14:12 Urine pH 5.0 (5.0-8.0) 12/30/17 14:12 Ur Specific [place] 1.024 (1.003-1.030) 12/30/17 14:12 Urine Protein 100 mg/dL (NEGATIVE) 12/30/17 14:12 Urine Glucose (UA) Neg mg/dL (Normal) 12/30/17 14:12 Urine Ketones Negative mg/dL (NEGATIVE) 12/30/17 14:12 Urine Blood Large (NEGATIVE) 12/30/17 14:12 Urine Nitrate Negative (NEGATIVE) 12/30/17 14:12 Urine Bilirubin Negative (NEGATIVE) 12/30/17 14:12 Urine Urobilinogen 0.2-1.0 mg/dL (0.2-1.0) 12/30/17 14:12 Ur Leukocyte Esterase Mod Michael/uL (Negative) 12/30/17 14:12 Urine RBC (Auto) 985 /hpf (0-3) H 12/30/17 14:12 Urine Microscopic WBC 1809 /hpf (0-5) H 12/30/17 14:12 Ur Squamous Epith Cells 2 /hpf (0-5) 12/30/17 14:12 Urine Bacteria Many (<OCC) H 12/30/17 14:12 Hyaline Casts 0-2 /hpf (0-2) 12/29/17 18:45 Random Vancomycin 8.5 ug/mL 12/30/17 17:43 Digoxin < 0.4 ng/mL (0.8-2.0) L 12/30/17 14:12 - Hospital Course Hospital Course: 82 y/o M with a extensive PMHx was admitted for evaluation and management of sepsis due to R ankle cellulitis. At ED, pt had fever, his WBC was elevated, lactate levels were increased and became hypotensive. Patient was transferred to ICU for close monitoring. ID and podiatry followed the patient during admission. Patient condition improved and was transferred to med/surg. Urine culture positive for Klebsiella oxytoca. Patient on IV abx to complete 7-10 days. Patient discharged to TCU to complete rehab. Discharge Exam - Head Exam Head Exam: NORMAL INSPECTION - Respiratory Exam Respiratory Exam: Clear to PA & Lateral, NORMAL BREATHING PATTERN - Cardiovascular Exam Cardiovascular Exam: REGULAR RHYTHM, +S1, +S2 - GI/Abdominal Exam GI & Abdominal Exam: Normal Bowel Sounds, Soft. absent: Distended, Tenderness - Extremities Exam Additional comments: L lower leg dressing noted clean and dry. edema improving. - Neurological Exam Neurological exam: Alert, Oriented x3 Discharge Plan - Follow Up Plan Condition: STABLE Disposition: TRANSF TO SNF Instructions: Cellulitis and Erysipelas (Skin Infections), Cellulitis (Skin Infection), Adult (DC) Additional Instructions: Follow up with primary MD within a week I was with Dr Ghotra during evaluation and discussed discharge plans. michael Dueñas M.D. <Michael Dueñas - Last Filed: 01/11/18 01:48> Provider - Provider Date of Admission: 12/29/17 16:07 Attending physician: Kirill Carrillo MD Hospital Course - Lab Results Lab Results: Micro Results 01/05/18 07:00 Naris MRSA Culture (Admit) - Final MRSA NOT DETECTED 12/31/17 14:14 Blood-Venous Blood Culture - Final NO GROWTH AFTER 5 DAYS 12/31/17 14:14 Blood-Venous Gram Stain - Final TEST NOT PERFORMED 12/29/17 18:45 Blood-Venous Blood Culture - Final NO GROWTH AFTER 5 DAYS 12/29/17 18:45 Blood-Venous Gram Stain - Final TEST NOT PERFORMED 12/29/17 16:40 Blood-Venous Blood Culture - Final NO GROWTH AFTER 5 DAYS 12/29/17 16:40 Blood-Venous Gram Stain - Final TEST NOT PERFORMED 12/29/17 18:45 Urine,Random Urine Culture - Final Klebsiella Oxytoca 12/30/17 14:12 Urine,Dong Urine Culture - Final Klebsiella Oxytoca 12/29/17 17:00 Leg - Right Gram Stain - Final 12/29/17 17:00 Leg - Right Wound Culture - Final Klebsiella Pneumoniae Ssp Pneu Serratia Marcescens Streptococcus Species 12/30/17 14:12 Nose MRSA Culture (Admit) - Final MRSA NOT DETECTED Most Recent Lab Values WBC 11.3 K/uL (4.8-10.8) H 01/04/18 04:30 RBC 3.02 Mil/uL (4.40-5.90) L 01/04/18 04:30 Hgb 9.9 g/dL (12.0-18.0) L 01/04/18 04:30 Hct 29.7 % (35.0-51.0) L 01/04/18 04:30 MCV 98.4 fl (80.0-94.0) H 01/04/18 04:30 MCH 32.7 pg (27.0-31.0) H 01/04/18 04:30 MCHC 33.2 g/dL (33.0-37.0) 01/04/18 04:30 RDW 13.9 % (11.5-14.5) 01/04/18 04:30 Plt Count 231 K/uL (130-400) 01/04/18 04:30 MPV 8.6 fl (7.2-11.7) 12/31/17 04:50 Neut % (Auto) 85.0 % (50.0-75.0) H 12/31/17 04:50 Lymph % (Auto) 7.1 % (20.0-40.0) L 12/31/17 04:50 [place] % (Auto) 6.6 % (0.0-10.0) 12/31/17 04:50 Eos % (Auto) 0.9 % (0.0-4.0) 12/31/17 04:50 Baso % (Auto) 0.4 % (0.0-2.0) 12/31/17 04:50 Neut # (Auto) 14.8 K/uL (1.8-7.0) H 12/31/17 04:50 Lymph # (Auto) 1.2 K/uL (1.0-4.3) 12/31/17 04:50 [place] # (Auto) 1.2 K/uL (0.0-0.8) H 12/31/17 04:50 Eos # (Auto) 0.2 K/uL (0.0-0.7) 12/31/17 04:50 Baso # (Auto) 0.1 K/uL (0.0-0.2) 12/31/17 04:50 Neutrophils % (Manual) 93 % (42-75) H 12/29/17 13:14 Lymphocytes % (Manual) 3 % (20-50) L 12/29/17 13:14 Monocytes % (Manual) 4 % (0-10) 12/29/17 13:14 Toxic Granulation Present 12/29/17 13:14 Platelet Estimate Normal (NORMAL) 12/29/17 13:14 RBC Morphology Normal (NORMAL) 12/29/17 13:14 PT 17.6 Seconds (9.8-13.1) H D 01/05/18 06:00 INR 1.5 01/05/18 06:00 APTT 40.0 Seconds (25.6-37.1) H 12/30/17 04:25 pO2 17 mm/Hg (30-55) L 12/29/17 16:22 VBG pH 7.34 (7.32-7.43) 12/29/17 16:22 VBG pCO2 58 mmHg (40-60) 12/29/17 16:22 VBG HCO3 25.7 mmol/L 12/29/17 16:22 VBG Total CO2 33.1 mmol/L (22-28) H 12/29/17 16:22 VBG O2 Sat (Calc) 23.3 % (40-65) L 12/29/17 16:22 VBG Base Excess 3.8 mmol/L (0.0-2.0) H 12/29/17 16:22 VBG Potassium 4.7 mmol/L (3.6-5.2) 12/29/17 16:22 Sodium 134.0 mmol/L (132-148) 12/29/17 16:22 Chloride 101.0 mmol/L (98-107) 12/29/17 16:22 Glucose 133 mg/dL (75-110) H 12/29/17 16:22 Lactate 3.1 mmol/L (0.7-2.1) H 12/29/17 16:22 FiO2 21.0 % 12/29/17 16:22 Sodium 137 mmol/l (132-148) 01/04/18 04:30 Potassium 4.7 MMOL/L (3.6-5.0) 01/04/18 04:30 Chloride 102 mmol/L (98-107) 01/04/18 04:30 Carbon Dioxide 27 mmol/L (22-30) 01/04/18 04:30 Anion Gap 13 (10-20) 01/04/18 04:30 BUN 21 mg/dl (9-20) H 01/04/18 04:30 Creatinine 0.9 mg/dl (0.8-1.5) 01/04/18 04:30 Est GFR ( Amer) > 60 01/04/18 04:30 Est GFR (Non-Af Amer) > 60 01/04/18 04:30 POC Glucose (mg/dL) 126 mg/dL (65-110) H 12/29/17 23:48 Random Glucose 82 mg/dL (75-110) 01/04/18 04:30 Lactic Acid 1.0 MMOL/L (0.7-2.1) 01/01/18 04:12 Calcium 8.8 mg/dL (8.4-10.2) 01/04/18 04:30 Phosphorus 2.8 mg/dl (2.5-4.5) 12/30/17 04:25 Magnesium 1.2 MG/DL (1.6-2.3) L 12/30/17 04:25 Total Bilirubin 1.1 mg/dl (0.2-1.3) 01/04/18 04:30 AST 31 U/L (17-59) 01/04/18 04:30 ALT 27 U/L (21-72) 01/04/18 04:30 Alkaline Phosphatase 82 U/L (38-126) 01/04/18 04:30 Total Creatine Kinase 1401 U/L (55-170) H 12/30/17 04:25 Total Protein 6.4 G/DL (6.3-8.2) 01/04/18 04:30 Albumin 2.9 g/dL (3.5-5.0) L 01/04/18 04:30 Globulin 3.4 gm/dL (2.2-3.9) 01/04/18 04:30 Albumin/Globulin Ratio 0.8 (1.0-2.1) L 01/04/18 04:30 TSH 3rd Generation 2.77 mIU/ML (0.46-4.68) 12/30/17 04:25 Venous Blood Potassium 4.7 mmol/L (3.6-5.2) 12/29/17 16:22 Urine Color [place] (YELLOW) 12/30/17 14:12 Urine Clarity Turbid (Clear) 12/30/17 14:12 Urine pH 5.0 (5.0-8.0) 12/30/17 14:12 Ur Specific [place] 1.024 (1.003-1.030) 12/30/17 14:12 Urine Protein 100 mg/dL (NEGATIVE) 12/30/17 14:12 Urine Glucose (UA) Neg mg/dL (Normal) 12/30/17 14:12 Urine Ketones Negative mg/dL (NEGATIVE) 12/30/17 14:12 Urine Blood Large (NEGATIVE) 12/30/17 14:12 Urine Nitrate Negative (NEGATIVE) 12/30/17 14:12 Urine Bilirubin Negative (NEGATIVE) 12/30/17 14:12 Urine Urobilinogen 0.2-1.0 mg/dL (0.2-1.0) 12/30/17 14:12 Ur Leukocyte Esterase Mod Michael/uL (Negative) 12/30/17 14:12 Urine RBC (Auto) 985 /hpf (0-3) H 12/30/17 14:12 Urine Microscopic WBC 1809 /hpf (0-5) H 12/30/17 14:12 Ur Squamous Epith Cells 2 /hpf (0-5) 12/30/17 14:12 Urine Bacteria Many (<OCC) H 12/30/17 14:12 Hyaline Casts 0-2 /hpf (0-2) 12/29/17 18:45 Random Vancomycin 8.5 ug/mL 12/30/17 17:43 Digoxin < 0.4 ng/mL (0.8-2.0) L 12/30/17 14:12
[2018-01-05 16:23] VITALS: BP 104/63; PULSE 59; TEMP 98.1; O2SAT 94
--- NOTE | 2018-01-11 21:54 | PQF ---
PROVIDER RESPONSE TEXT: Provider was unable to determine a response for this query. REVIEWER QUERY TEXT: Heart Failure Acuity and Type Congestive Heart Failure is documented in the Medical Record. Please document the type and acuity (in cludes probable or suspected) versus no CHF: history only and not a chronic condition Such as: Type: -- Combined systolic and diastolic (heart failure with reduced ejection fraction and diastolic) dysfu nction -- Diastolic (HFpEF) -- Systolic (HFrEF) -- Left heart failure -- Right heart failure -- Right heart failure due to left heart failure -- High output failure -- End stage heart failure -- Other, please specify Acuity: -- Acute -- Chronic -- Acute on chronic -- Other, please specify CXR: Impression : No active disease. No significant interval change compared to the prior examination(s). H and P includes: PMHx: CHF with preserved EF The patient's Clinical Indicators include: - Query created by: Jolene Mei on 12/31/2017 2:27 PM Electronically signed by: Kirill Carrillo 01/11/2018 9:52 PM
== END 2018-01-05 18:30 | DRG 871 ==
LOC: H.ER 11:22 → H.ERHOLD 16:07 → H.MEDSURG1 20:24 → H.ICU/CCU 12-30 00:33 → H.MEDSURG1 01-05 01:02
PROVIDERS: ADMIT Family Medicine; ATTEND Family Medicine
PROC: 06HM33Z Insertion of Infusion Device into Right Femoral Vein, Percutaneous Approach (ICD-10-PCS; principal; 2017-12-30)
PROC: 3E033XZ Introduction of Vasopressor into Peripheral Vein, Percutaneous Approach (ICD-10-PCS; 2018-01-01)
PROC: 02HV33Z Insertion of Infusion Device into Superior Vena Cava, Percutaneous Approach (ICD-10-PCS; 2018-01-04)
DX: A41.9 Sepsis, unspecified organism (principal); R65.21 Severe sepsis with septic shock; L03.115 Cellulitis of right lower limb; L97.319 Non-pressure chronic ulcer of right ankle with unspecified severity; N17.9 Acute kidney failure, unspecified; I13.0 Hypertensive heart and chronic kidney disease with heart failure and stage 1 through stage 4 chronic kidney disease, or unspecified chronic kidney disease; N39.0 Urinary tract infection, site not specified; I50.32 Chronic diastolic (congestive) heart failure; I48.2 Chronic atrial fibrillation; Z95.0 Presence of cardiac pacemaker; Z79.01 Long term (current) use of anticoagulants; E03.9 Hypothyroidism, unspecified; Z87.891 Personal history of nicotine dependence; R47.1 Dysarthria and anarthria; I25.10 Atherosclerotic heart disease of native coronary artery without angina pectoris; E86.0 Dehydration; B96.1 Klebsiella pneumoniae [K. pneumoniae] as the cause of diseases classified elsewhere; N18.2 Chronic kidney disease, stage 2 (mild); B96.89 Other specified bacterial agents as the cause of diseases classified elsewhere; E78.00 Pure hypercholesterolemia, unspecified

== ENCOUNTER 2018-01-05 14:51 | Inpatient (IN) | payer OTHER ==
[2018-01-05 18:47] VITALS: BMI 32.4
[2018-01-05] MEDS ORDERED: Bisacodyl 5mg EC Tab PO PRN (19:10)
[2018-01-05] MEDS ORDERED: NS 600 MG IVPB SCH (21:00)
[2018-01-05] MEDS ORDERED: CLINDAMYCIN 600 MG/50 ML IVPB SCH (21:00)
[2018-01-05] MEDS ORDERED: Clindamycin 600 MG in Sodium Chloride 0.9% 100 ML IVPB SCH (21:00)
[2018-01-05] MEDS: Digoxin 125 mcg (0.125 mg) Tab PO SCH (21:29)
[2018-01-05] MEDS ORDERED: Clindamycin 600mg/50ml D5W 600 MG/50 ML VIAL IVPB SCH (22:00)
[2018-01-05] MEDS ORDERED: methylPREDNISolone 40 MG in Sodium Chloride 0.9% 50 ML IV SCH (22:30)
[2018-01-05] MEDS: Albuterol-Ipratrop 3 mg / 0.5 (3 ml) UD INH PRN (22:41)
[2018-01-06] MEDS: MethylPREDNISolone 40 mg Vial IVP SCH ×3 (00:25→22:00)
[2018-01-06] MEDS ORDERED: Patient's Own Med (Cefepime 1gm In Ns 100ml [Maxipime 1gm] 1 GM) IVPB SCH (01:00)
[2018-01-06] MEDS ORDERED: Cefepime 1 GM in Sodium Chloride 0.9% 100 ML IVPB SCH (01:00)
[2018-01-06] MEDS ORDERED: Clindamycin 600mg/50ml D5W 600 MG/50 ML VIAL IVPB SCH (05:15)
[2018-01-06] MEDS: Clindamycin 600mg/50ml NS 600 MG/50 ML BAG IVPB SCH ×2 (05:37→17:07)
[2018-01-06] MEDS: Levothyroxine 175 MCG TAB PO SCH (05:37)
[2018-01-06] MEDS: Cefepime 1 GM in Sodium Chloride 0.9% 100 ML IVPB SCH ×3 (06:28→21:59)
[2018-01-06 06:39] LABS: INR 1.4; PROTHROMBIN TIME 16.1 Seconds (9.8-13.1)
[2018-01-06] MEDS: CYANOCOBALAMIN (VITAMIN B-12) 250 MCG TABLET PO SCH (08:14)
--- NOTE | 2018-01-06 08:48 | CP.PCM.HP ---
<Swapnil Ghotra - Last Filed: 01/06/18 09:07> History of Present Illness - History of Present Illness History of Present Illness: 82 yr old M with PMHx including Atrial fibrillation s/p pacemaker, CAD, Bradycardia, CHF with preserved EF, Hypothyroidism now with R ankle cellulitis and sepsis is admitted to TCU to complete IV abx for 7-10 days as per ID. Patient was recently discharged from Med/surg. Patient is stable for further treatment in TCU. PMHx: Atrial fibrillation s/p pacemaker, CAD, Bradycardia, CHF with preserved EF, Hypothyroidism SurgHx: pacemaker FMHx: noncontributory SocHx: denies tobacco, Etoh or drugs Medications: Warfarin 5 mg PO every other day, Vit B12, Digoxing 125 mcg PO QD, Levothyroxine 175mcg PO QD, Calcium carbonate/Vit D3, Colace , Sennosides Allergies: NKDA Present on Admission - Present on Admission Any Indicators Present on Admission: No Past Patient History - Past Medical History & Family History Past Medical History?: Yes - Past Social History Smoking Status: Former Smoker - CARDIAC Hx Atrial Fibrillation: Yes Hx Cardia Arrhythmia: Yes (bradycardia) Hx Congestive Heart Failure: Yes Hx Hypertension: Yes Hx Pacemaker: Yes - PULMONARY Hx Respiratory Disorders: No - NEUROLOGICAL Hx Neurological Disorder: No - HEENT Hx HEENT Problems: No - RENAL Hx Chronic Kidney Disease: No - ENDOCRINE/METABOLIC Hx Hypothyroidism: Yes - HEMATOLOGICAL/ONCOLOGICAL Hx Human Immunodeficiency Virus (HIV): No - INTEGUMENTARY Hx Dermatological Problems: No Hx Cellulitis: Yes - MUSCULOSKELETAL/RHEUMATOLOGICAL Hx Musculoskeletal Disorders: Yes Hx Falls: Yes - GASTROINTESTINAL Hx Gastrointestinal Disorders: No - GENITOURINARY/GYNECOLOGICAL Hx Genitourinary Disorders: No - PSYCHIATRIC Hx Psychophysiologic Disorder: No Hx Emotional Abuse: No Hx Physical Abuse: No Hx Substance Use: No - SURGICAL HISTORY Hx Tonsillectomy: Yes - ANESTHESIA Hx Anesthesia: Yes Hx Anesthesia Reactions: No Hx Malignant Hyperthermia: No Meds Allergies/Adverse Reactions: Allergies Allergy/AdvReac Type Severity Reaction Status Date / Time No Known Allergies Allergy Unknown RASH Verified 01/05/18 16:45 Physical Exam - Constitutional Appears: No Acute Distress - Head Exam Head Exam: NORMAL INSPECTION - Respiratory Exam Respiratory Exam: Clear to Auscultation Bilateral, NORMAL BREATHING PATTERN - Cardiovascular Exam Cardiovascular Exam: REGULAR RHYTHM, +S1, +S2 - GI/Abdominal Exam GI & Abdominal Exam: Normal Bowel Sounds, Soft. absent: Distended, Tenderness - Extremities Exam Extremities exam: Negative for: calf tenderness, pedal edema Additional comments: R lower leg dressing clean, dry and in place. - Neurological Exam Neurological exam: Alert, CN II-XII Intact, Oriented x3 Results - Vital Signs Recent Vital Signs: Last Vital Signs Temp 97.0 F L 01/05/18 21:36 Pulse 62 01/05/18 22:41 Resp 20 01/05/18 21:36 BP 126/66 01/05/18 22:31 Pulse Ox 100 01/05/18 21:36 - Labs Labs: Laboratory Results - last 24 hr 01/06/18 06:04 PT 16.1 H INR 1.4 Assessment & Plan - Assessment and Plan (Free Text) Assessment: 82 yr old M with extensive PMHx admitted to TCU with R leg cellulitis to complete IV abx treatment. Plan: - afebrile - resume home medications - PT/OT - continue cefepine and clinda IV q 12 - rest of plan as ordered Case seen and examined with Dr Dueñas <Nabor Dueñas - Last Filed: 01/11/18 01:49> Results - Vital Signs Recent Vital Signs: Last Vital Signs Temp 97.9 F 01/10/18 20:42 Pulse 61 01/10/18 20:42 Resp 20 01/10/18 20:42 BP 115/64 01/10/18 20:42 Pulse Ox 97 01/10/18 20:42 Assessment & Plan - Assessment and Plan (Free Text) Plan: I was present during evaluation and discussed plans of care and mgt. Nabor Dueñas M.D.
--- NOTE | 2018-01-06 13:48 | CP.PCM.PN ---
Subjective - Date & Time of Evaluation Date of Evaluation: 01/06/18 Time of Evaluation: 13:45 - Subjective Subjective: Podiatry progress note for Dr. Davenport 82 year old male seen and evaluated at bedside. Seen resting comfortably. Dressing clean and dry. Denies pain today, denies N/V/F/C/SOB/CP. Has no acute pedal complaints today. Objective - Vital Signs/Intake and Output Vital Signs (last 24 hours): Temp Pulse Resp BP Pulse Ox 97.2 F L 64 20 116/73 95 01/06/18 08:53 01/06/18 11:20 01/06/18 08:53 01/06/18 08:53 01/06/18 11:20 - Medications Medications: Current Medications Acetaminophen (Tylenol 325mg Tab) 325 mg PO Q4 PRN PRN Reason: Fever >100.4 F Albuterol/Ipratropium (Duoneb 3 Mg/0.5 Mg (3 Ml) Ud) 3 ml INH RQ6 PRN PRN Reason: Shortness of Breath Last Admin: 01/05/18 22:41 Dose: 3 ml Bisacodyl (Dulcolax) 10 mg PO DAILY PRN PRN Reason: Constipation Cyanocobalamin (Vitamin B-12) 250 mcg PO DAILY [facility] Last Admin: 01/06/18 08:14 Dose: 250 mcg Digoxin (Digoxin) 0.125 mg PO [facility] Last Admin: 01/05/18 21:29 Dose: 0.125 mg Digoxin (Digoxin) 0.25 mg PO [facility] Ergocalciferol (Drisdol 50,000 Intl Units Cap) 1 cap PO MO [facility] Cefepime HCl 1 gm/ Sodium (Chloride) 100 mls @ 100 mls/hr IVPB Q8@0600,1400,2200 [facility] Last Admin: 01/06/18 06:28 Dose: 100 mls/hr Clindamycin Phosphate (Cleocin 600mg/50ml Ns) 600 mg in 50 mls @ 50 mls/hr IVPB Q12@0500,1700 [facility] Last Admin: 01/06/18 05:37 Dose: 50 mls/hr Levothyroxine Sodium (Synthroid) 175 mcg PO DAILY@0630 [facility] Last Admin: 01/06/18 05:37 Dose: 175 mcg Methylprednisolone (Solu-Medrol) 40 mg IVP Q12 [facility] Last Admin: 01/06/18 08:13 Dose: 40 mg Warfarin Sodium (Coumadin) 4 mg PO ONCE ONE; Protocol Stop: 01/06/18 17:01 - Labs Labs: PT 16.1 Seconds (9.8-13.1) H 01/06/18 06:04 INR 1.4 01/06/18 06:04 - Constitutional Appears: Well, Non-toxic, No Acute Distress - Head Exam Head Exam: ATRAUMATIC, NORMOCEPHALIC - Extremities Exam Additional comments: Vasc: DP and PT 1/4, temperature gradient cool to cool, CFT <4 seconds to the digits, edema noted to the LE bilaterally Ortho: MM is 5/5 in all four compartments, tenderness noted to palpation surrounding ulceration site Neuro: sensation slightly diminished Derm: ulceration on the lateral aspect of lower 1/3 of the right leg measuring approximately 3.0 x 2.7 x 0.1. Wound base is 90% granular, 10% fibrous. Mild sanguinous drainage noted, no odor, no purulence noted, hyperpigmentation of the skin noted extending to the anterior lateral leg. No probe to bone, no undermining, no tunneling noted - Neurological Exam Neurological Exam: Alert, Awake, Oriented x3 - Psychiatric Exam Psychiatric exam: Normal Affect, Normal Mood Assessment and Plan - Assessment and Plan (Free Text) Assessment: 82 year old male with right lower leg ulceration and cellulitis Plan: Patient was examined and evaluated Discussed in detail with Dr. Davenport Afebrile, absent leukocytosis X-ray reviewed- no fracture or destructive lesion noted; no OM or acute pathology Ulceration cleansed, dressed with betadine, 4x4, kerlix Wound culture: klebsiella sp ID consult, recs appreciated, continue meds per ID Podiatry will continue to follow the patient
--- NOTE | 2018-01-06 15:12 | CP.PCM.CON ---
History of Present Illness - History of Present Illness History of Present Illness: I was asked to evaluate patient by Dr Dueñas Patient seen 01/06/18 1400 Patient is a 82 year old male with HTN, afib, PPM who presents for abx management for cellulitis. The patient is maintained on coumadin for afib but it has been difficult monitor. Patient denies chest pain or dyspnea. Review of Systems - Constitutional Constitutional: absent: As Per HPI, Anorexia, Chills, Daytime Sleepiness, Excessive Sweating, Fatigue, Fever, Frequent Falls, Headache, Increased Appetite, Lethargy, Malaise, Night Sweats, Snoring, Sleep Apnea, Weight Gain, Weight Loss, Weakness, Other - EENT Eyes: absent: As Per HPI, Blind Spots, Blurred Vision, Change in Vision, Decreased Night Vision, Diplopia, Discharge, Dry Eye, Exophthalmos, Floaters, Irritation, Itchy Eyes, Loss of Peripheral Vision, Pain, Photophobia, Requires Corrective Lenses, Sees Flashes, Spots in Vision, Tunnel Vision, Other Visual Disturbances, Loss of Vision, Other Ears: absent: As Per HPI, Decreased Hearing, Ear Discharge, Ear Pain, Tinnitus, Abnormal Hearing, Disequilibrium, Dizziness, Other Nose/Mouth/Throat: absent: As Per HPI, Epistaxis, Nasal Congestion, Nasal Discharge, Nasal Obstruction, Nasal Trauma, Nose Pain, Post Nasal Drip, Sinus Pain, Sinus Pressure, Bleeding Gums, Change in Voice, Dental Pain, Dry Mouth, Dysphagia, Halitosis, Hoarsness, Lip Swelling, Mouth Lesions, Mouth Pain, Odynophagia, Sore Throat, Throat Swelling, Tongue Swelling, Facial Pain, Neck Pain, Neck Mass, Other - Cardiovascular Cardiovascular: absent: As Per HPI, Acrocyanosis, Chest Pain, Chest Pain at Rest, Chest Pain with Activity, Claudication, Diaphoresis, Dyspnea, Dyspnea on Exertion, Edema, Irregular Heart Rhythm, Pain Radiating to Arm/Neck/Jaw, Leg Edema, Leg Ulcers, Lightheadedness, Orthopnea, Palpitations, Paroxysmal Nocturnal Dyspnea, Pedal Edema, Radiating Pain, Rapid Heart Rate, Slow Heart Rate, Syncope, Other - Respiratory Respiratory: absent: As Per HPI, Cough, Dyspnea, Hemoptysis, Dyspnea on Exertion, Wheezing, Snoring, Stridor, Pain on Inspiration, Chest Congestion, Excessive Mucous Production, Change in Mucous Color, Pain with Coughing, Other - Gastrointestinal Gastrointestinal: absent: As Per HPI, Abdominal Pain, Belching, Bloating, Change in Bowel Habits, Change in Stool Character, Coffee Ground Emesis, Constipation, Cramping, Diarrhea, Dyspepsia, Dysphagia, Early Satiety, Excessive Flatus, Fecal Incontinence, Heartburn, Hematemesis, Hematochezia, Loose Stools, Melena, Nausea, Odynophagia, Temesmus, Vomiting, Other - Genitourinary Genitourinary: absent: As Per HPI, Change in Urinary Stream, Difficulty Urinating, Dysuria, Flank Pain, Hematuria, Pyuria, Nocturia, Urinary Incontinence, Urinary Frequency, Urinary Hesitance, Urinary Urgency, Voiding Freq/Small Amts, Freq UTI, Hx Renal/Bladder Calculi, Hx /Renal Surgery, Bladder Distension, Other - Musculoskeletal Musculoskeletal: absent: As Per HPI, Abnormal Gait, Arthralgias, Atrophy, Back Pain, Deformity, Joint Swelling, Limited Range of Motion, Loss of Height, Muscle Cramps, Muscle Weakness, Myalgias, Neck Pain, Numbness, Radiating Pain into Limb, Stiffness, Tingling, Other - Integumentary Integumentary: absent: As Per HPI, Acne, Alopecia, Bleeding Lesions, Change in Hair, Change in Nails, Change in Pigmentation, Changing Lesions, Dry Skin, Erythema, Furuncle, Hirsutism, Lesions, New Lesions, Non-Healing Lesions, Photosensitivity, Pruritus, Rash, Skin Pain, Skin Ulcer, Sores, Striae, Swelling, Unusual Bruising, Wounds, Jaundice, Other - Neurological Neurological: absent: As Per HPI, Abnormal Gait, Abnormal Hearing, Abnormal Movements, Abnormal Speech, Behavioral Changes, Burning Sensations, Confusion, Convulsions, Disequilibrium, Dizziness, Numbness, Focal Weakness, Frequent Falls, Headaches, Lack of Coordination, Loss of Vision, Memory Loss, Paresthesias, Radicular Pain, Restless Legs, Sensory Deficit, Syncope, Tingling, Tremor, Vertigo, Weakness, Other Visual Disturbances, Other - Psychiatric Psychiatric: absent: As Per HPI, Abnormal Sleep Pattern, Anhedonia, Anxiety, Auditory Hallucinations, Behavioral Changes, Change in Appetite, Change in Libido, Confusion, Depression, Difficulty Concentrating, Hallucinations, Homicidal Ideation, Hopelessness, Irritability, Memory Loss, Mood Swings, Panic Attacks, Paranoia, Suicidal Ideation, Visual Hallucinations, Tactile Hallucinations, Other - Endocrine Endocrine: absent: As Per HPI, Change in Body Appearance, Change in Libido, Cold Intolorance, Deepening of Voice, Excessive Sweating, Fatigue, Flushing, Heat Intolorance, Increase in Ring/Shoe/Hat Size, Palpitations, Polydipsia, Polyphagia, Polyuria, Other - Hematologic/Lymphatic Hematologic: absent: As Per HPI, Easy Bleeding, Easy Bruising, Lymphadenopathy, Other Past Patient History - Past Medical History & Family History Past Medical History?: Yes - Past Social History Smoking Status: Former Smoker - CARDIAC Hx Atrial Fibrillation: Yes Hx Cardia Arrhythmia: Yes (bradycardia) Hx Congestive Heart Failure: Yes Hx Hypertension: Yes Hx Pacemaker: Yes - PULMONARY Hx Respiratory Disorders: No - NEUROLOGICAL Hx Neurological Disorder: No - HEENT Hx HEENT Problems: No - RENAL Hx Chronic Kidney Disease: No - ENDOCRINE/METABOLIC Hx Hypothyroidism: Yes - HEMATOLOGICAL/ONCOLOGICAL Hx Human Immunodeficiency Virus (HIV): No - INTEGUMENTARY Hx Dermatological Problems: No Hx Cellulitis: Yes - MUSCULOSKELETAL/RHEUMATOLOGICAL Hx Musculoskeletal Disorders: Yes Hx Falls: Yes - GASTROINTESTINAL Hx Gastrointestinal Disorders: No - GENITOURINARY/GYNECOLOGICAL Hx Genitourinary Disorders: No - PSYCHIATRIC Hx Psychophysiologic Disorder: No Hx Emotional Abuse: No Hx Physical Abuse: No Hx Substance Use: No - SURGICAL HISTORY Hx Tonsillectomy: Yes - ANESTHESIA Hx Anesthesia: Yes Hx Anesthesia Reactions: No Hx Malignant Hyperthermia: No Meds Allergies/Adverse Reactions: Allergies Allergy/AdvReac Type Severity Reaction Status Date / Time No Known Allergies Allergy Unknown RASH Verified 01/05/18 16:45 - Medications Medications: Current Medications Acetaminophen (Tylenol 325mg Tab) 325 mg PO Q4 PRN PRN Reason: Fever >100.4 F Albuterol/Ipratropium (Duoneb 3 Mg/0.5 Mg (3 Ml) Ud) 3 ml INH RQ6 PRN PRN Reason: Shortness of Breath Last Admin: 01/05/18 22:41 Dose: 3 ml Bisacodyl (Dulcolax) 10 mg PO DAILY PRN PRN Reason: Constipation Cyanocobalamin (Vitamin B-12) 250 mcg PO DAILY COUNTS [facility]CLUDE 234 BEDS AT THE [facility] Last Admin: 01/06/18 08:14 Dose: 250 mcg Digoxin (Digoxin) 0.125 mg PO SUMOTUTHFR COUNTS INCLUDE 234 BEDS AT THE [facility] Last Admin: 01/05/18 21:29 Dose: 0.125 mg Digoxin (Digoxin) 0.25 mg PO WESA COUNTS INCLUDE 234 BEDS AT THE [facility] Ergocalciferol (Drisdol 50,000 Intl Units Cap) 1 cap PO MO COUNTS INCLUDE 234 BEDS AT THE [facility] Cefepime HCl 1 gm/ Sodium (Chloride) 100 mls @ 100 mls/hr IVPB Q8@060 0,1400,2200 COUNTS INCLUDE 234 BEDS AT THE [facility] Last Admin: 01/06/18 14:24 Dose: 100 mls/hr Clindamycin Phosphate (Cleocin 600mg/50ml Ns) 600 mg in 50 mls @ 50 mls/hr IVPB Q12@0500,1700 COUNTS INCLUDE 234 BEDS AT THE [facility] Last Admin: 01/06/18 05:37 Dose: 50 mls/hr Levothyroxine Sodium (Synthroid) 175 mcg PO DAILY@0630 COUNTS INCLUDE 234 BEDS AT THE [facility] Last Admin: 01/06/18 05:37 Dose: 175 mcg Methylprednisolone (Solu-Medrol) 40 mg IVP Q12 COUNTS INCLUDE 234 BEDS AT THE [facility] Last Admin: 01/06/18 08:13 Dose: 40 mg Rivaroxaban (Xarelto) 15 mg PO QD5 COUNTS INCLUDE 234 BEDS AT THE [facility]; Protocol Warfarin Sodium (Coumadin) 4 mg PO ONCE ONE; Protocol Stop: 01/06/18 17:01 Physical Exam - Constitutional Appears: Non-toxic - Head Exam Head Exam: NORMAL INSPECTION - Eye Exam Eye Exam: Normal appearance - ENT Exam ENT Exam: Mucous Membranes Moist - Neck Exam Neck exam: Positive for: Full Rom - Respiratory Exam Respiratory Exam: NORMAL BREATHING PATTERN - GI/Abdominal Exam GI & Abdominal Exam: Normal Bowel Sounds - Rectal Exam Rectal Exam: Deferred - Extremities Exam Extremities exam: Positive for: pedal edema - Back Exam Back exam: NORMAL INSPECTION - Neurological Exam Neurological exam: Alert, Oriented x3 - Psychiatric Exam Psychiatric exam: Normal Affect - Skin Additional comments: cellulitis Results - Vital Signs Recent Vital Signs: Last Vital Signs Temp 97.2 F L 01/06/18 08:53 Pulse 64 01/06/18 11:20 Resp 20 01/06/18 08:53 BP 116/73 01/06/18 08:53 Pulse Ox 95 01/06/18 11:20 - Labs Labs: Laboratory Results - last 24 hr 01/06/18 06:04 PT 16.1 H INR 1.4 Assessment & Plan (1) Chronic a-fib Assessment and Plan: the importance of anticaougaltion has been discussed. The patient cannot be reliably monitored on coumadin. Recommend change to Xarelto. Status: Acute (2) HTN (hypertension) Assessment and Plan: blood pressure control Status: Acute
[2018-01-06] MEDS ORDERED: Digoxin 125 mcg (0.125 mg) Tab PO SCH (18:57)
[2018-01-07] MEDS: Clindamycin 600mg/50ml D5W 600 MG/50 ML VIAL IVPB SCH ×2 (05:01→16:17)
[2018-01-07] MEDS: Cefepime 1 GM in Sodium Chloride 0.9% 100 ML IVPB SCH ×3 (06:04→21:55)
[2018-01-07] MEDS: Levothyroxine 175 MCG TAB PO SCH (06:04)
[2018-01-07 07:07] LABS: PROTHROMBIN TIME 22.7 Seconds (9.8-13.1)
[2018-01-07] MEDS: CYANOCOBALAMIN (VITAMIN B-12) 250 MCG TABLET PO SCH (08:22)
[2018-01-07] MEDS: MethylPREDNISolone 40 mg Vial IVP SCH ×2 (08:22→20:15)
[2018-01-07] MEDS: Digoxin 125 mcg (0.125 mg) Tab PO SCH (20:15)
[2018-01-08] MEDS: Clindamycin 600mg/50ml D5W 600 MG/50 ML VIAL IVPB SCH ×2 (04:36→16:57)
[2018-01-08] MEDS: Cefepime 1 GM in Sodium Chloride 0.9% 100 ML IVPB SCH ×3 (05:54→22:25)
[2018-01-08] MEDS: Levothyroxine 175 MCG TAB PO SCH (07:43)
[2018-01-08] MEDS: CYANOCOBALAMIN (VITAMIN B-12) 250 MCG TABLET PO SCH (08:10)
[2018-01-08] MEDS: MethylPREDNISolone 40 mg Vial IVP SCH ×2 (08:10→22:25)
[2018-01-08] MEDS: Digoxin 125 mcg (0.125 mg) Tab PO SCH (22:20)
[2018-01-09] MEDS: Levothyroxine 175 MCG TAB PO SCH (05:50)
[2018-01-09] MEDS: Clindamycin 600mg/50ml D5W 600 MG/50 ML VIAL IVPB SCH ×2 (05:50→16:41)
[2018-01-09] MEDS: Cefepime 1 GM in Sodium Chloride 0.9% 100 ML IVPB SCH ×3 (07:06→21:13)
[2018-01-09] MEDS: MethylPREDNISolone 40 mg Vial IVP SCH ×2 (09:49→21:49)
[2018-01-09] MEDS: X PO SCH (09:50)
[2018-01-09] MEDS: CYANOCOBALAMIN (VITAMIN B-12) 250 MCG TABLET PO SCH (09:51)
--- NOTE | 2018-01-09 20:29 | CP.PCM.PN ---
Subjective - Date & Time of Evaluation Date of Evaluation: 01/09/18 Time of Evaluation: 20:26 - Subjective Subjective: Podiatry progress note for Dr. Davenport 82 year old male seen and evaluated at bedside. Seen resting comfortably. Dressing clean and dry. Denies pain today, denies N/V/F/C/SOB/CP. Has no acute pedal complaints today Objective - Vital Signs/Intake and Output Vital Signs (last 24 hours): Temp Pulse Resp BP Pulse Ox 97.5 F L 63 20 124/72 99 01/09/18 16:31 01/09/18 16:31 01/09/18 16:31 01/09/18 16:31 01/09/18 16:31 - Medications Medications: Current Medications Acetaminophen (Tylenol 325mg Tab) 325 mg PO Q4 PRN PRN Reason: Fever >100.4 F Albuterol/Ipratropium (Duoneb 3 Mg/0.5 Mg (3 Ml) Ud) 3 ml INH RQ6 PRN PRN Reason: Shortness of Breath Last Admin: 01/05/18 22:41 Dose: 3 ml Bisacodyl (Dulcolax) 10 mg PO DAILY PRN PRN Reason: Constipation Cyanocobalamin (Vitamin B-12) 250 mcg PO DAILY [facility] Last Admin: 01/09/18 09:51 Dose: 250 mcg Digoxin (Digoxin) 0.125 mg PO SUMOTUTHFR [facility] Last Admin: 01/08/18 22:20 Dose: 0.125 mg Digoxin (Lanoxin) 0.25 mg PO WESA [facility] Last Admin: 01/09/18 09:50 Dose: 0.25 mg Ergocalciferol (Drisdol 50,000 Intl Units Cap) 1 cap PO MO [facility] Cefepime HCl 1 gm/ Sodium (Chloride) 100 mls @ 100 mls/hr IVPB Q8@0600,1400,2200 [facility] Last Admin: 01/09/18 15:43 Dose: 100 mls/hr Clindamycin Phosphate (Cleocin) 600 mg in 50 mls @ 50 mls/hr IVPB Q12@0500,1700 [facility] Last Admin: 01/09/18 16:41 Dose: 50 mls/hr Levothyroxine Sodium (Synthroid) 175 mcg PO DAILY@0630 [facility] Last Admin: 01/09/18 05:50 Dose: 175 mcg Methylprednisolone (Solu-Medrol) 40 mg IVP Q12 [facility] Last Admin: 01/09/18 09:49 Dose: 40 mg Rivaroxaban (Xarelto) 15 mg PO QD5 [facility]; Protocol Last Admin: 01/09/18 16:41 Dose: 15 mg - Labs Labs: PT 22.7 Seconds (9.8-13.1) H D 01/07/18 06:00 INR 2.0 01/07/18 06:00 - Constitutional Appears: Well, Non-toxic - Extremities Exam Additional comments: Vasc: DP and PT 1/4, temperature gradient cool to cool, CFT <4 seconds to the digits, edema noted to the LE bilaterally Ortho: MM is 5/5 in all four compartments, tenderness noted to palpation surrounding ulceration site Neuro: sensation slightly diminished Derm: ulceration on the lateral aspect of lower 1/3 of the right leg measuring approximately 3.0 x 2.7 x 0.1. Wound base is 90% granular, 10% fibrous. Mild sanguinous drainage noted, no odor, no purulence noted, hyperpigmentation of the skin noted extending to the anterior lateral leg. No probe to bone, no undermining, no tunneling noted - Neurological Exam Neurological Exam: Alert, Awake, Oriented x3 - Psychiatric Exam Psychiatric exam: Normal Affect Assessment and Plan - Assessment and Plan (Free Text) Assessment: 82 year old male with right lower leg ulceration Plan: Patient was examined and evaluated Discussed in detail with Dr. Davenport Afebrile, absent leukocytosis X-ray reviewed- no fracture or destructive lesion noted; no OM or acute pathology Ulceration cleansed, dressed with betadine, 4x4, kerlix Wound culture: klebsiella sp ID consult, recs appreciated, continue meds per ID Podiatry will continue to follow the patient
[2018-01-10] MEDS: Levothyroxine 175 MCG TAB PO SCH (06:01)
[2018-01-10] MEDS: Clindamycin 600mg/50ml D5W 600 MG/50 ML VIAL IVPB SCH ×2 (06:04→17:01)
[2018-01-10] MEDS: Cefepime 1 GM in Sodium Chloride 0.9% 100 ML IVPB SCH ×3 (06:05→21:00)
[2018-01-10] MEDS: CYANOCOBALAMIN (VITAMIN B-12) 250 MCG TABLET PO SCH (08:17)
[2018-01-10] MEDS: MethylPREDNISolone 40 mg Vial IVP SCH ×2 (08:17→20:58)
[2018-01-10] MEDS: Digoxin 125 mcg (0.125 mg) Tab PO SCH (19:46)
--- NOTE | 2018-01-11 01:52 | CP.PCM.PN ---
Subjective - Date & Time of Evaluation Date of Evaluation: 01/07/18 Time of Evaluation: 13:00 - Subjective Subjective: Patient is feeling better Has some cough and wheezing and responded well to treatment Has no fever, Noted improvement of leg cellulitis. Objective - Vital Signs/Intake and Output Vital Signs (last 24 hours): Temp Pulse Resp BP Pulse Ox 97.9 F 61 20 115/64 97 01/10/18 20:42 01/10/18 20:42 01/10/18 20:42 01/10/18 20:42 01/10/18 20:42 - Medications Medications: Current Medications Acetaminophen (Tylenol 325mg Tab) 325 mg PO Q4 PRN PRN Reason: Fever >100.4 F Albuterol/Ipratropium (Duoneb 3 Mg/0.5 Mg (3 Ml) Ud) 3 ml INH RQ6 PRN PRN Reason: Shortness of Breath Last Admin: 01/05/18 22:41 Dose: 3 ml Bisacodyl (Dulcolax) 10 mg PO DAILY PRN PRN Reason: Constipation Cyanocobalamin (Vitamin B-12) 250 mcg PO DAILY [facility] Last Admin: 01/10/18 08:17 Dose: 250 mcg Digoxin (Digoxin) 0.125 mg PO SUMOTUTHFR [facility] Last Admin: 01/10/18 19:46 Dose: 0.125 mg Digoxin (Lanoxin) 0.25 mg PO WESA [facility] Last Admin: 01/09/18 09:50 Dose: 0.25 mg Ergocalciferol (Drisdol 50,000 Intl Units Cap) 1 cap PO MO [facility] Cefepime HCl 1 gm/ Sodium (Chloride) 100 mls @ 100 mls/hr IVPB Q8@0600,1400,2200 [facility] Last Admin: 01/10/18 21:00 Dose: 100 mls/hr Clindamycin Phosphate (Cleocin) 600 mg in 50 mls @ 50 mls/hr IVPB Q12@0500,1700 [facility] Last Admin: 01/10/18 17:01 Dose: 50 mls/hr Levothyroxine Sodium (Synthroid) 175 mcg PO DAILY@0630 [facility] Last Admin: 01/10/18 06:01 Dose: 175 mcg Methylprednisolone (Solu-Medrol) 40 mg IVP Q12 [facility] Last Admin: 01/10/18 20:58 Dose: 40 mg Rivaroxaban (Xarelto) 15 mg PO QD5 [facility]; Protocol Last Admin: 01/10/18 17:01 Dose: 15 mg - Labs Labs: PT 22.7 Seconds (9.8-13.1) H D 01/07/18 06:00 INR 2.0 01/07/18 06:00 - Head Exam Head Exam: NORMAL INSPECTION - Eye Exam Eye Exam: Normal appearance - Respiratory Exam Respiratory Exam: NORMAL BREATHING PATTERN - Cardiovascular Exam Cardiovascular Exam: REGULAR RHYTHM - GI/Abdominal Exam GI & Abdominal Exam: Normal Bowel Sounds - Neurological Exam Neurological Exam: Awake - Psychiatric Exam Psychiatric exam: Normal Mood Assessment and Plan (1) HTN (hypertension) Status: Acute (2) NICOLLE (acute kidney injury) Status: Acute (3) CKD (chronic kidney disease) stage 2, GFR 60-89 ml/min Status: Acute (4) Dehydration Status: Acute (5) Hypothyroidism Status: Acute (6) Infected wound Status: Acute (7) Ulcer of ankle Status: Acute - Assessment and Plan (Free Text) Plan: Cont wound care Cont med Cont ambulation Phys therapy
--- NOTE | 2018-01-11 01:54 | CP.PCM.PN ---
Subjective - Date & Time of Evaluation Date of Evaluation: 01/08/18 Time of Evaluation: 15:00 - Subjective Subjective: patient remains stable Has no chest pain or SOB Has fewer cough and SOB Doing well with treatment Objective - Vital Signs/Intake and Output Vital Signs (last 24 hours): Temp Pulse Resp BP Pulse Ox 97.9 F 61 20 115/64 97 01/10/18 20:42 01/10/18 20:42 01/10/18 20:42 01/10/18 20:42 01/10/18 20:42 - Medications Medications: Current Medications Acetaminophen (Tylenol 325mg Tab) 325 mg PO Q4 PRN PRN Reason: Fever >100.4 F Albuterol/Ipratropium (Duoneb 3 Mg/0.5 Mg (3 Ml) Ud) 3 ml INH RQ6 PRN PRN Reason: Shortness of Breath Last Admin: 01/05/18 22:41 Dose: 3 ml Bisacodyl (Dulcolax) 10 mg PO DAILY PRN PRN Reason: Constipation Cyanocobalamin (Vitamin B-12) 250 mcg PO DAILY [facility] Last Admin: 01/10/18 08:17 Dose: 250 mcg Digoxin (Digoxin) 0.125 mg PO SUMOTUTHFR [facility] Last Admin: 01/10/18 19:46 Dose: 0.125 mg Digoxin (Lanoxin) 0.25 mg PO WESA [facility] Last Admin: 01/09/18 09:50 Dose: 0.25 mg Ergocalciferol (Drisdol 50,000 Intl Units Cap) 1 cap PO MO [facility] Cefepime HCl 1 gm/ Sodium (Chloride) 100 mls @ 100 mls/hr IVPB Q8@0600,1400,2200 [facility] Last Admin: 01/10/18 21:00 Dose: 100 mls/hr Clindamycin Phosphate (Cleocin) 600 mg in 50 mls @ 50 mls/hr IVPB Q12@0500,1700 [facility] Last Admin: 01/10/18 17:01 Dose: 50 mls/hr Levothyroxine Sodium (Synthroid) 175 mcg PO DAILY@0630 [facility] Last Admin: 01/10/18 06:01 Dose: 175 mcg Methylprednisolone (Solu-Medrol) 40 mg IVP Q12 [facility] Last Admin: 01/10/18 20:58 Dose: 40 mg Rivaroxaban (Xarelto) 15 mg PO QD5 [facility]; Protocol Last Admin: 01/10/18 17:01 Dose: 15 mg - Labs Labs: PT 22.7 Seconds (9.8-13.1) H D 01/07/18 06:00 INR 2.0 01/07/18 06:00 - Head Exam Head Exam: NORMAL INSPECTION - ENT Exam ENT Exam: Mucous Membranes Moist - Respiratory Exam Respiratory Exam: NORMAL BREATHING PATTERN - GI/Abdominal Exam GI & Abdominal Exam: Hyperactive Bowel Sounds, Normal Bowel Sounds - Neurological Exam Neurological Exam: Awake Assessment and Plan (1) HTN (hypertension) Status: Acute (2) NICOLLE (acute kidney injury) Status: Acute (3) CKD (chronic kidney disease) stage 2, GFR 60-89 ml/min Status: Acute (4) Dehydration Status: Acute (5) Hypothyroidism Status: Acute (6) Infected wound Status: Acute (7) Ulcer of ankle Status: Acute - Assessment and Plan (Free Text) Plan: Cont meds Cont wound care follow up with Rn Float
--- NOTE | 2018-01-11 01:56 | CP.PCM.PN ---
Subjective - Date & Time of Evaluation Date of Evaluation: 01/09/18 Time of Evaluation: 17:00 - Subjective Subjective: patient remains stable Has no SOB Has no chest pain Noted resolution of wheezing and cough. Objective - Vital Signs/Intake and Output Vital Signs (last 24 hours): Temp Pulse Resp BP Pulse Ox 97.9 F 61 20 115/64 97 01/10/18 20:42 01/10/18 20:42 01/10/18 20:42 01/10/18 20:42 01/10/18 20:42 - Medications Medications: Current Medications Acetaminophen (Tylenol 325mg Tab) 325 mg PO Q4 PRN PRN Reason: Fever >100.4 F Albuterol/Ipratropium (Duoneb 3 Mg/0.5 Mg (3 Ml) Ud) 3 ml INH RQ6 PRN PRN Reason: Shortness of Breath Last Admin: 01/05/18 22:41 Dose: 3 ml Bisacodyl (Dulcolax) 10 mg PO DAILY PRN PRN Reason: Constipation Cyanocobalamin (Vitamin B-12) 250 mcg PO DAILY [facility] Last Admin: 01/10/18 08:17 Dose: 250 mcg Digoxin (Digoxin) 0.125 mg PO SUMOTUTHFR [facility] Last Admin: 01/10/18 19:46 Dose: 0.125 mg Digoxin (Lanoxin) 0.25 mg PO WESA [facility] Last Admin: 01/09/18 09:50 Dose: 0.25 mg Ergocalciferol (Drisdol 50,000 Intl Units Cap) 1 cap PO MO [facility] Cefepime HCl 1 gm/ Sodium (Chloride) 100 mls @ 100 mls/hr IVPB Q8@0600,1400,2200 [facility] Last Admin: 01/10/18 21:00 Dose: 100 mls/hr Clindamycin Phosphate (Cleocin) 600 mg in 50 mls @ 50 mls/hr IVPB Q12@0500,1700 [facility] Last Admin: 01/10/18 17:01 Dose: 50 mls/hr Levothyroxine Sodium (Synthroid) 175 mcg PO DAILY@0630 [facility] Last Admin: 01/10/18 06:01 Dose: 175 mcg Methylprednisolone (Solu-Medrol) 40 mg IVP Q12 [facility] Last Admin: 01/10/18 20:58 Dose: 40 mg Rivaroxaban (Xarelto) 15 mg PO QD5 [facility]; Protocol Last Admin: 01/10/18 17:01 Dose: 15 mg - Labs Labs: PT 22.7 Seconds (9.8-13.1) H D 01/07/18 06:00 INR 2.0 01/07/18 06:00 - Head Exam Head Exam: NORMAL INSPECTION - Eye Exam Eye Exam: Normal appearance - Respiratory Exam Respiratory Exam: NORMAL BREATHING PATTERN - Cardiovascular Exam Cardiovascular Exam: REGULAR RHYTHM - GI/Abdominal Exam GI & Abdominal Exam: Normal Bowel Sounds Assessment and Plan (1) HTN (hypertension) Status: Acute (2) NICOLLE (acute kidney injury) Status: Acute (3) CKD (chronic kidney disease) stage 2, GFR 60-89 ml/min Status: Acute (4) Dehydration Status: Acute (5) Hypothyroidism Status: Acute (6) Infected wound Status: Acute (7) Ulcer of ankle Status: Acute - Assessment and Plan (Free Text) Plan: Cont meds Cont txz Cont PT cont meds.
--- NOTE | 2018-01-11 01:59 | CP.PCM.PN ---
Subjective - Date & Time of Evaluation Date of Evaluation: 01/10/18 Time of Evaluation: 15:00 - Subjective Subjective: patient remains stable Has no chest pain or SOB Objective - Vital Signs/Intake and Output Vital Signs (last 24 hours): Temp Pulse Resp BP Pulse Ox 97.9 F 61 20 115/64 97 01/10/18 20:42 01/10/18 20:42 01/10/18 20:42 01/10/18 20:42 01/10/18 20:42 - Medications Medications: Current Medications Acetaminophen (Tylenol 325mg Tab) 325 mg PO Q4 PRN PRN Reason: Fever >100.4 F Albuterol/Ipratropium (Duoneb 3 Mg/0.5 Mg (3 Ml) Ud) 3 ml INH RQ6 PRN PRN Reason: Shortness of Breath Last Admin: 01/05/18 22:41 Dose: 3 ml Bisacodyl (Dulcolax) 10 mg PO DAILY PRN PRN Reason: Constipation Cyanocobalamin (Vitamin B-12) 250 mcg PO DAILY [facility] Last Admin: 01/10/18 08:17 Dose: 250 mcg Digoxin (Digoxin) 0.125 mg PO SUMOTUTHFR [facility] Last Admin: 01/10/18 19:46 Dose: 0.125 mg Digoxin (Lanoxin) 0.25 mg PO WESA [facility] Last Admin: 01/09/18 09:50 Dose: 0.25 mg Ergocalciferol (Drisdol 50,000 Intl Units Cap) 1 cap PO MO [facility] Cefepime HCl 1 gm/ Sodium (Chloride) 100 mls @ 100 mls/hr IVPB Q8@0600,1400,2200 [facility] Last Admin: 01/10/18 21:00 Dose: 100 mls/hr Clindamycin Phosphate (Cleocin) 600 mg in 50 mls @ 50 mls/hr IVPB Q12@0500,1700 [facility] Last Admin: 01/10/18 17:01 Dose: 50 mls/hr Levothyroxine Sodium (Synthroid) 175 mcg PO DAILY@0630 [facility] Last Admin: 01/10/18 06:01 Dose: 175 mcg Methylprednisolone (Solu-Medrol) 40 mg IVP Q12 [facility] Last Admin: 01/10/18 20:58 Dose: 40 mg Rivaroxaban (Xarelto) 15 mg PO QD5 [facility]; Protocol Last Admin: 01/10/18 17:01 Dose: 15 mg - Labs Labs: PT 22.7 Seconds (9.8-13.1) H D 01/07/18 06:00 INR 2.0 01/07/18 06:00 - Constitutional Appears: No Acute Distress, Younger Than Stated Age - Respiratory Exam Respiratory Exam: Clear to Ausculation Bilateral, NORMAL BREATHING PATTERN - Cardiovascular Exam Cardiovascular Exam: REGULAR RHYTHM Assessment and Plan (1) HTN (hypertension) Status: Acute (2) NICOLLE (acute kidney injury) Status: Acute (3) CKD (chronic kidney disease) stage 2, GFR 60-89 ml/min Status: Acute (4) Dehydration Status: Acute (5) Hypothyroidism Status: Acute (6) Infected wound Status: Acute (7) Ulcer of ankle Status: Acute - Assessment and Plan (Free Text) Plan: Cont meds Cont tx Phys therapy
[2018-01-11] MEDS: Cefepime 1 GM in Sodium Chloride 0.9% 100 ML IVPB SCH (05:53)
[2018-01-11] MEDS: Levothyroxine 175 MCG TAB PO SCH (05:53)
[2018-01-11] MEDS: Clindamycin 600mg/50ml D5W 600 MG/50 ML VIAL IVPB SCH ×2 (05:56→16:25)
[2018-01-11] MEDS: MethylPREDNISolone 40 mg Vial IVP SCH ×2 (08:19→21:01)
[2018-01-11] MEDS: CYANOCOBALAMIN (VITAMIN B-12) 250 MCG TABLET PO SCH (08:19)
--- NOTE | 2018-01-11 18:32 | CP.PCM.PN ---
Subjective - Date & Time of Evaluation Date of Evaluation: 01/11/18 Time of Evaluation: 16:00 - Subjective Subjective: patient is doing a lot better Has no chest pain or SOb afebrile Objective - Vital Signs/Intake and Output Vital Signs (last 24 hours): Temp Pulse Resp BP Pulse Ox 97.5 F L 60 20 109/65 100 01/11/18 15:54 01/11/18 15:54 01/11/18 15:54 01/11/18 15:54 01/11/18 15:54 - Medications Medications: Current Medications Acetaminophen (Tylenol 325mg Tab) 325 mg PO Q4 PRN PRN Reason: Fever >100.4 F Albuterol/Ipratropium (Duoneb 3 Mg/0.5 Mg (3 Ml) Ud) 3 ml INH RQ6 PRN PRN Reason: Shortness of Breath Last Admin: 01/05/18 22:41 Dose: 3 ml Bisacodyl (Dulcolax) 10 mg PO DAILY PRN PRN Reason: Constipation Cyanocobalamin (Vitamin B-12) 250 mcg PO DAILY [facility] Last Admin: 01/11/18 08:19 Dose: 250 mcg Digoxin (Digoxin) 0.125 mg PO [facility] Last Admin: 01/10/18 19:46 Dose: 0.125 mg Digoxin (Lanoxin) 0.25 mg PO [facility] Last Admin: 01/09/18 09:50 Dose: 0.25 mg Ergocalciferol (Drisdol 50,000 Intl Units Cap) 1 cap PO MO [facility] Clindamycin Phosphate (Cleocin) 600 mg in 50 mls @ 50 mls/hr IVPB Q12@0500,1700 [facility] Last Admin: 01/11/18 16:25 Dose: 50 mls/hr Levothyroxine Sodium (Synthroid) 175 mcg PO DAILY@0630 [facility] Last Admin: 01/11/18 05:53 Dose: 175 mcg Methylprednisolone (Solu-Medrol) 40 mg IVP Q12 [facility] Last Admin: 01/11/18 08:19 Dose: 40 mg Rivaroxaban (Xarelto) 15 mg PO QD5 [facility]; Protocol Last Admin: 01/11/18 16:24 Dose: 15 mg - Labs Labs: PT 22.7 Seconds (9.8-13.1) H D 01/07/18 06:00 INR 2.0 01/07/18 06:00 - Head Exam Head Exam: NORMAL INSPECTION - Eye Exam Eye Exam: Normal appearance - ENT Exam ENT Exam: Mucous Membranes Moist - Respiratory Exam Respiratory Exam: Clear to Ausculation Bilateral - Cardiovascular Exam Cardiovascular Exam: Irregular Rhythm - GI/Abdominal Exam GI & Abdominal Exam: Soft - Neurological Exam Neurological Exam: Awake, Oriented x3 Assessment and Plan (1) HTN (hypertension) Status: Acute (2) NICOLLE (acute kidney injury) Status: Acute (3) CKD (chronic kidney disease) stage 2, GFR 60-89 ml/min Status: Acute (4) Dehydration Status: Acute (5) Hypothyroidism Status: Acute (6) Infected wound Status: Acute (7) Ulcer of ankle Status: Acute - Assessment and Plan (Free Text) Plan: Con tmeds Con ttx Cont PT discharge plans with Dr Rob.
[2018-01-11] MEDS: Digoxin 125 mcg (0.125 mg) Tab PO SCH (18:39)
[2018-01-11] MEDS: Ergocalciferol 50,000 Intl Units Cap PO SCH (18:40)
[2018-01-12] MEDS: Levothyroxine 175 MCG TAB PO SCH (05:31)
[2018-01-12] MEDS: Clindamycin 600mg/50ml D5W 600 MG/50 ML VIAL IVPB SCH ×2 (05:31→17:05)
[2018-01-12] MEDS: CYANOCOBALAMIN (VITAMIN B-12) 250 MCG TABLET PO SCH (08:24)
[2018-01-12] MEDS: MethylPREDNISolone 40 mg Vial IVP SCH (08:24)
[2018-01-12] MEDS: Cefepime 1 GM in Sodium Chloride 0.9% 100 ML IVPB SCH ×2 (13:10→20:37)
--- NOTE | 2018-01-12 17:09 | CP.PCM.PN ---
Subjective - Date & Time of Evaluation Date of Evaluation: 01/12/18 Time of Evaluation: 17:07 - Subjective Subjective: I D NOTE CONTINUE SAME IV ANTIBIOTICS FOR CHRONIC STASIS ULCERS(CLINAMYCIN/CEFEPIME Objective - Vital Signs/Intake and Output Vital Signs (last 24 hours): Temp Pulse Resp BP Pulse Ox 96.8 F L 79 20 123/80 96 01/12/18 16:22 01/12/18 16:22 01/12/18 16:22 01/12/18 16:22 01/12/18 16:22 - Medications Medications: Current Medications Acetaminophen (Tylenol 325mg Tab) 325 mg PO Q4 PRN PRN Reason: Fever >100.4 F Albuterol/Ipratropium (Duoneb 3 Mg/0.5 Mg (3 Ml) Ud) 3 ml INH RQ6 PRN PRN Reason: Shortness of Breath Last Admin: 01/05/18 22:41 Dose: 3 ml Bisacodyl (Dulcolax) 10 mg PO DAILY PRN PRN Reason: Constipation Cyanocobalamin (Vitamin B-12) 250 mcg PO DAILY [facility] Last Admin: 01/12/18 08:24 Dose: 250 mcg Digoxin (Digoxin) 0.125 mg PO SUMOTUTHFR [facility] Last Admin: 01/11/18 18:39 Dose: 0.125 mg Digoxin (Lanoxin) 0.25 mg PO [facility] Last Admin: 01/09/18 09:50 Dose: 0.25 mg Ergocalciferol (Drisdol 50,000 Intl Units Cap) 1 cap PO MO [facility] Last Admin: 01/11/18 18:40 Dose: 1 cap Clindamycin Phosphate (Cleocin) 600 mg in 50 mls @ 50 mls/hr IVPB Q12@0500,1700 [facility]; Protocol Cefepime HCl 1 gm/ Sodium (Chloride) 100 mls @ 100 mls/hr IVPB Q8@0500,1300,2100 [facility]; Protocol Last Admin: 01/12/18 13:10 Dose: 100 mls/hr Levothyroxine Sodium (Synthroid) 175 mcg PO DAILY@0630 [facility] Last Admin: 01/12/18 05:31 Dose: 175 mcg Prednisone (Prednisone Tab) 40 mg PO Q24H [facility] Stop: 01/13/18 11:31 Last Admin: 01/12/18 13:10 Dose: 40 mg Prednisone (Prednisone Tab) 30 mg PO Q24H [facility] Stop: 01/15/18 11:28 Prednisone (Prednisone Tab) 20 mg PO Q24H [facility] Stop: 01/17/18 11:28 Prednisone (Prednisone Tab) 10 mg PO Q24H [facility] Stop: 01/19/18 11:28 Rivaroxaban (Xarelto) 15 mg PO QD5 [facility]; Protocol Last Admin: 01/11/18 16:24 Dose: 15 mg - Labs Labs: PT 22.7 Seconds (9.8-13.1) H D 01/07/18 06:00 INR 2.0 01/07/18 06:00
[2018-01-12] MEDS: Digoxin 125 mcg (0.125 mg) Tab PO SCH (18:26)
--- NOTE | 2018-01-12 19:08 | CP.PCM.PN ---
Subjective - Date & Time of Evaluation Date of Evaluation: 01/12/18 Time of Evaluation: 11:00 - Subjective Subjective: patient seen and examined at bedside. no acute events overnight. states he feels better. denies cp/sob. Objective - Vital Signs/Intake and Output Vital Signs (last 24 hours): Temp Pulse Resp BP Pulse Ox 96.8 F L 79 20 123/80 96 01/12/18 16:22 01/12/18 16:22 01/12/18 16:22 01/12/18 16:22 01/12/18 16:22 - Medications Medications: Current Medications Acetaminophen (Tylenol 325mg Tab) 325 mg PO Q4 PRN PRN Reason: Fever >100.4 F Albuterol/Ipratropium (Duoneb 3 Mg/0.5 Mg (3 Ml) Ud) 3 ml INH RQ6 PRN PRN Reason: Shortness of Breath Last Admin: 01/05/18 22:41 Dose: 3 ml Bisacodyl (Dulcolax) 10 mg PO DAILY PRN PRN Reason: Constipation Cyanocobalamin (Vitamin B-12) 250 mcg PO DAILY [facility] Last Admin: 01/12/18 08:24 Dose: 250 mcg Digoxin (Digoxin) 0.125 mg PO SUMOTUTHFR [facility] Last Admin: 01/12/18 18:26 Dose: 0.125 mg Digoxin (Lanoxin) 0.25 mg PO [facility] Last Admin: 01/09/18 09:50 Dose: 0.25 mg Ergocalciferol (Drisdol 50,000 Intl Units Cap) 1 cap PO MO [facility] Last Admin: 01/11/18 18:40 Dose: 1 cap Clindamycin Phosphate (Cleocin) 600 mg in 50 mls @ 50 mls/hr IVPB Q12@0500,1700 [facility]; Protocol Last Admin: 01/12/18 17:05 Dose: 50 mls/hr Cefepime HCl 1 gm/ Sodium (Chloride) 100 mls @ 100 mls/hr IVPB Q8@0500,1300,2100 [facility]; Protocol Last Admin: 01/12/18 13:10 Dose: 100 mls/hr Levothyroxine Sodium (Synthroid) 175 mcg PO DAILY@0630 [facility] Last Admin: 01/12/18 05:31 Dose: 175 mcg Prednisone (Prednisone Tab) 40 mg PO Q24H [facility] Stop: 01/13/18 11:31 Last Admin: 01/12/18 13:10 Dose: 40 mg Prednisone (Prednisone Tab) 30 mg PO Q24H [facility] Stop: 01/15/18 11:28 Prednisone (Prednisone Tab) 20 mg PO Q24H [facility] Stop: 01/17/18 11:28 Prednisone (Prednisone Tab) 10 mg PO Q24H [facility] Stop: 01/19/18 11:28 Rivaroxaban (Xarelto) 15 mg PO QD5 [facility]; Protocol Last Admin: 01/12/18 17:05 Dose: 15 mg - Labs Labs: PT 22.7 Seconds (9.8-13.1) H D 01/07/18 06:00 INR 2.0 01/07/18 06:00 - Additional Findings Additional findings: - Head Exam Head Exam: NORMAL INSPECTION - Eye Exam Eye Exam: Normal appearance - Respiratory Exam Respiratory Exam: Clear to Ausculation Bilateral - Cardiovascular Exam Cardiovascular Exam: Irregular Rhythm - GI/Abdominal Exam GI & Abdominal Exam: Soft - Neurological Exam Neurological Exam: Awake, Oriented x3 Assessment and Plan - Assessment and Plan (Free Text) Assessment: Cont meds Cont tx Cont PT appreciate recommendations by cardiology/ID
[2018-01-13] MEDS: Cefepime 1 GM in Sodium Chloride 0.9% 100 ML IVPB SCH ×3 (04:26→21:30)
[2018-01-13] MEDS: Clindamycin 600mg/50ml D5W 600 MG/50 ML VIAL IVPB SCH ×2 (05:41→16:59)
[2018-01-13] MEDS: Levothyroxine 175 MCG TAB PO SCH (05:44)
[2018-01-13] MEDS: X PO SCH (09:11)
[2018-01-13] MEDS: CYANOCOBALAMIN (VITAMIN B-12) 250 MCG TABLET PO SCH (09:11)
--- NOTE | 2018-01-13 09:36 | CP.PCM.PN ---
Subjective - Date & Time of Evaluation Date of Evaluation: 01/13/18 Time of Evaluation: 09:33 - Subjective Subjective: Podiatry progress note for Dr. Davenport 82M seen and evaluated at bedside. Resting comfortably. Denies any acute events overnight. States he is feeling much better since admission. Denies N/V/F/C/SOB/CP and has no other pedal complaints. Objective - Vital Signs/Intake and Output Vital Signs (last 24 hours): Temp Pulse Resp BP Pulse Ox 96.8 F L 60 20 113/73 98 01/13/18 08:37 01/13/18 08:37 01/13/18 08:37 01/13/18 08:37 01/13/18 08:37 - Medications Medications: Current Medications Acetaminophen (Tylenol 325mg Tab) 325 mg PO Q4 PRN PRN Reason: Fever >100.4 F Albuterol/Ipratropium (Duoneb 3 Mg/0.5 Mg (3 Ml) Ud) 3 ml INH RQ6 PRN PRN Reason: Shortness of Breath Last Admin: 01/05/18 22:41 Dose: 3 ml Bisacodyl (Dulcolax) 10 mg PO DAILY PRN PRN Reason: Constipation Cyanocobalamin (Vitamin B-12) 250 mcg PO DAILY [facility] Last Admin: 01/13/18 09:11 Dose: 250 mcg Digoxin (Digoxin) 0.125 mg PO SUMOTUTHFR [facility] Last Admin: 01/12/18 18:26 Dose: 0.125 mg Digoxin (Lanoxin) 0.25 mg PO [facility] Last Admin: 01/13/18 09:11 Dose: 0.25 mg Ergocalciferol (Drisdol 50,000 Intl Units Cap) 1 cap PO MO [facility] Last Admin: 01/11/18 18:40 Dose: 1 cap Clindamycin Phosphate (Cleocin) 600 mg in 50 mls @ 50 mls/hr IVPB Q12@0500,1700 [facility]; Protocol Last Admin: 01/13/18 05:41 Dose: 50 mls/hr Cefepime HCl 1 gm/ Sodium (Chloride) 100 mls @ 100 mls/hr IVPB Q8@0500,1300,2100 [facility]; Protocol Last Admin: 01/13/18 04:26 Dose: 100 mls/hr Levothyroxine Sodium (Synthroid) 175 mcg PO DAILY@0630 [facility] Last Admin: 01/13/18 05:44 Dose: 175 mcg Prednisone (Prednisone Tab) 40 mg PO Q24H [facility] Stop: 01/13/18 11:31 Last Admin: 01/12/18 13:10 Dose: 40 mg Prednisone (Prednisone Tab) 30 mg PO Q24H [facility] Stop: 01/15/18 11:28 Prednisone (Prednisone Tab) 20 mg PO Q24H [facility] Stop: 01/17/18 11:28 Prednisone (Prednisone Tab) 10 mg PO Q24H [facility] Stop: 01/19/18 11:28 Rivaroxaban (Xarelto) 15 mg PO QD5 [facility]; Protocol Last Admin: 01/12/18 17:05 Dose: 15 mg - Labs Labs: PT 22.7 Seconds (9.8-13.1) H D 01/07/18 06:00 INR 2.0 01/07/18 06:00 - Constitutional Appears: Well, Non-toxic, No Acute Distress - Head Exam Head Exam: ATRAUMATIC, NORMOCEPHALIC - Extremities Exam Additional comments: Vasc: DP and PT 1/4, temperature gradient cool to cool, CFT <4 seconds to the digits, edema noted to the LE bilaterally - improved Ortho: MM is 5/5 in all four compartments, tenderness noted to palpation surrounding ulceration site Neuro: sensation slightly diminished Derm: ulceration on the lateral aspect of lower 1/3 of the right leg measuring approximately 2.9 x 2.3. Wound base is 100% granular. No drainage noted, no odor, no purulence noted, hyperpigmentation of the skin noted extending to the anterior lateral leg. No probe to bone, no undermining, no tunneling noted - Neurological Exam Neurological Exam: Alert, Awake, Oriented x3 - Psychiatric Exam Psychiatric exam: Normal Affect, Normal Mood Assessment and Plan - Assessment and Plan (Free Text) Assessment: 82M with right lower leg venous stasis ulceration and cellulitis Plan: Patient was examined and evaluated Discussed in detail with Dr. Davenport Afebrile, absent leukocytosis X-ray reviewed- no fracture or destructive lesion noted; no OM or acute pathology Ulceration cleansed with sterile saline, dressed with xeroform, DSD Wound culture: klebsiella sp ID consult, recs appreciated, continue meds per ID Podiatry will continue to follow the patient
[2018-01-14] MEDS: Cefepime 1 GM in Sodium Chloride 0.9% 100 ML IVPB SCH ×3 (04:13→21:52)
[2018-01-14] MEDS: Clindamycin 600mg/50ml D5W 600 MG/50 ML VIAL IVPB SCH ×2 (04:16→16:26)
[2018-01-14] MEDS: Levothyroxine 175 MCG TAB PO SCH (06:25)
[2018-01-14] MEDS: CYANOCOBALAMIN (VITAMIN B-12) 250 MCG TABLET PO SCH (08:26)
[2018-01-14] MEDS: Digoxin 125 mcg (0.125 mg) Tab PO SCH (18:15)
[2018-01-15] MEDS: Cefepime 1 GM in Sodium Chloride 0.9% 100 ML IVPB SCH ×3 (04:40→21:29)
[2018-01-15] MEDS: Clindamycin 600mg/50ml D5W 600 MG/50 ML VIAL IVPB SCH ×2 (05:50→17:08)
[2018-01-15] MEDS: Levothyroxine 175 MCG TAB PO SCH (05:51)
[2018-01-15] MEDS: CYANOCOBALAMIN (VITAMIN B-12) 250 MCG TABLET PO SCH (08:08)
--- NOTE | 2018-01-15 08:32 | CP.PCM.PN ---
Subjective - Date & Time of Evaluation Date of Evaluation: 01/15/18 Time of Evaluation: 08:30 - Subjective Subjective: Podiatry progress note for Dr. Davenport 82M seen at bedside in TCU. Resting comfortably with no pedal complaints. Denies acute events overnight. Denies N/V/F/C/SOB/CP. Has no other pedal complaints today. Objective - Vital Signs/Intake and Output Vital Signs (last 24 hours): Temp Pulse Resp BP Pulse Ox 98.2 F 60 20 127/76 98 01/14/18 20:29 01/14/18 20:29 01/14/18 20:29 01/14/18 20:29 01/14/18 20:29 - Medications Medications: Current Medications Acetaminophen (Tylenol 325mg Tab) 325 mg PO Q4 PRN PRN Reason: Fever >100.4 F Albuterol/Ipratropium (Duoneb 3 Mg/0.5 Mg (3 Ml) Ud) 3 ml INH RQ6 PRN PRN Reason: Shortness of Breath Last Admin: 01/05/18 22:41 Dose: 3 ml Bisacodyl (Dulcolax) 10 mg PO DAILY PRN PRN Reason: Constipation Cyanocobalamin (Vitamin B-12) 250 mcg PO DAILY [facility] Last Admin: 01/15/18 08:08 Dose: 250 mcg Digoxin (Digoxin) 0.125 mg PO [facility]FR [facility] Last Admin: 01/14/18 18:15 Dose: 0.125 mg Digoxin (Lanoxin) 0.25 mg PO [facility] Last Admin: 01/13/18 09:11 Dose: 0.25 mg Ergocalciferol (Drisdol 50,000 Intl Units Cap) 1 cap PO MO [facility] Last Admin: 01/11/18 18:40 Dose: 1 cap Clindamycin Phosphate (Cleocin) 600 mg in 50 mls @ 50 mls/hr IVPB Q12@0500,1700 [facility]; Protocol Last Admin: 01/15/18 05:50 Dose: 50 mls/hr Cefepime HCl 1 gm/ Sodium (Chloride) 100 mls @ 100 mls/hr IVPB Q8@0500,1300,2100 [facility]; Protocol Last Admin: 01/15/18 04:40 Dose: 100 mls/hr Levothyroxine Sodium (Synthroid) 175 mcg PO DAILY@0630 [facility] Last Admin: 01/15/18 05:51 Dose: 175 mcg Prednisone (Prednisone Tab) 30 mg PO Q24H [facility] Stop: 01/15/18 11:28 Last Admin: 01/14/18 11:56 Dose: 30 mg Prednisone (Prednisone Tab) 20 mg PO Q24H [facility] Stop: 01/17/18 11:28 Prednisone (Prednisone Tab) 10 mg PO Q24H [facility] Stop: 01/19/18 11:28 Rivaroxaban (Xarelto) 15 mg PO QD5 [facility]; Protocol Last Admin: 01/14/18 18:15 Dose: 15 mg - Labs Labs: PT 22.7 Seconds (9.8-13.1) H D 01/07/18 06:00 INR 2.0 01/07/18 06:00 - Constitutional Appears: Well, Non-toxic, No Acute Distress - Head Exam Head Exam: ATRAUMATIC, NORMOCEPHALIC - Extremities Exam Additional comments: Vasc: DP and PT 1/4, temperature gradient cool to cool, CFT <4 seconds to the digits, edema noted to the LE bilaterally - improved Ortho: MM is 5/5 in all four compartments, tenderness noted to palpation surrounding ulceration site Neuro: sensation slightly diminished Derm: ulceration on the lateral aspect of lower 1/3 of the right leg measuring approximately 2.9 x 2.3. Wound base is 100% granular. No drainage noted, no odor, no purulence noted, hyperpigmentation of the skin noted extending to the anterior lateral leg. No probe to bone, no undermining, no tunneling noted - Neurological Exam Neurological Exam: Alert, Awake, Oriented x3 - Psychiatric Exam Psychiatric exam: Normal Affect, Normal Mood Assessment and Plan - Assessment and Plan (Free Text) Assessment: 82M with right lower leg venous stasis ulceration and cellulitis Plan: Patient was examined and evaluated Discussed in detail with Dr. Davenport Afebrile, absent leukocytosis X-ray reviewed- no fracture or destructive lesion noted; no OM or acute pathology Ulceration cleansed with sterile saline, dressed with xeroform, DSD Wound culture: klebsiella sp ID consult, recs appreciated, continue meds per ID Podiatry will continue to follow the patient
[2018-01-15] MEDS: Digoxin 125 mcg (0.125 mg) Tab PO SCH (21:29)
[2018-01-16] MEDS: Clindamycin 600mg/50ml D5W 600 MG/50 ML VIAL IVPB SCH ×2 (04:58→17:02)
[2018-01-16] MEDS: Cefepime 1 GM in Sodium Chloride 0.9% 100 ML IVPB SCH ×3 (04:58→21:07)
[2018-01-16] MEDS: Levothyroxine 175 MCG TAB PO SCH (06:27)
[2018-01-16] MEDS: CYANOCOBALAMIN (VITAMIN B-12) 250 MCG TABLET PO SCH (09:28)
[2018-01-16] MEDS: X PO SCH (09:28)
[2018-01-17] MEDS: Clindamycin 600mg/50ml D5W 600 MG/50 ML VIAL IVPB SCH ×2 (04:59→16:51)
[2018-01-17] MEDS: Cefepime 1 GM in Sodium Chloride 0.9% 100 ML IVPB SCH ×3 (04:59→21:02)
[2018-01-17] MEDS: Levothyroxine 175 MCG TAB PO SCH (05:45)
[2018-01-17] MEDS: CYANOCOBALAMIN (VITAMIN B-12) 250 MCG TABLET PO SCH (08:11)
[2018-01-17] MEDS: Digoxin 125 mcg (0.125 mg) Tab PO SCH (18:05)
[2018-01-17] MEDS: Albuterol-Ipratrop 3 mg / 0.5 (3 ml) UD INH PRN (20:45)
[2018-01-18] MEDS: Cefepime 1 GM in Sodium Chloride 0.9% 100 ML IVPB SCH ×2 (04:54→12:50)
[2018-01-18] MEDS: Clindamycin 600mg/50ml D5W 600 MG/50 ML VIAL IVPB SCH ×2 (04:55→18:17)
[2018-01-18] MEDS: Levothyroxine 175 MCG TAB PO SCH (06:31)
[2018-01-18] MEDS: CYANOCOBALAMIN (VITAMIN B-12) 250 MCG TABLET PO SCH (08:33)
[2018-01-18 13:36] LABS: BASO % 0.1 % (0.0-2.0); EOS # 0.1 K/uL (0.0-0.7); LYMPH % 13.6 % (20.0-40.0); MEAN CELL VOLUME 100.2 fl (80.0-94.0); MEAN PLATELET VOLUME 8.5 fl (7.2-11.7); MONO # 1.2 K/uL (0.0-0.8); MONO % 8.1 % (0.0-10.0); NEUT # 11.1 K/uL (1.8-7.0); NEUT % 77.2 % (50.0-75.0); RBC 3.64 Mil/uL (4.40-5.90); RED CELL DISTRIBUTION WIDTH 15.8 % (11.5-14.5); WHITE BLOOD COUNT 14.4 K/uL (4.8-10.8)
[2018-01-18 13:47] LABS: ALB/GLOB RATIO 0.9 (1.0-2.1); ALT/SGPT 38 U/L (21-72); AST/SGOT 23 U/L (17-59); BLOOD UREA NITROGEN 38 mg/dl (9-20); CALCIUM 9.1 mg/dL (8.4-10.2); GFR NON-AFRICAN AMERICAN > 60
[2018-01-18 14:47] LABS: SQUAMOUS EPITHIAL < 1 /hpf (0-5); URINE BACTERIA RARE (<OCC); URINE BILIRUBIN NEGATIVE (NEGATIVE); URINE BLOOD MODERATE (NEGATIVE); URINE CLARITY CLEAR (Clear); URINE COLOR YELLOW (YELLOW); URINE GLUCOSE (UA) NEG (Normal); URINE LEUKOCYTE ESTERASE NEG Leu/uL (Negative); URINE PROTEIN NEGATIVE (NEGATIVE); URINE UROBILINOGEN 0.2-1.0 mg/dL (0.2-1.0)
[2018-01-18 14:51] LABS: URINE HYALINE CAST 0-1 /hpf (0-2)
--- NOTE | 2018-01-18 15:22 | CP.PCM.PN ---
Subjective - Date & Time of Evaluation Date of Evaluation: 01/18/18 Time of Evaluation: 15:21 - Subjective Subjective: Podiatry progress note for Dr. Davenport 82M seen at bedside in TCU. Resting comfortably with no pedal complaints. Denies acute events overnight. Denies N/V/F/C/SOB/CP. Has no other pedal complaints today. Objective - Vital Signs/Intake and Output Vital Signs (last 24 hours): Temp Pulse Resp BP Pulse Ox 97.4 F L 64 18 123/80 100 01/18/18 10:00 01/18/18 10:00 01/18/18 10:00 01/18/18 10:00 01/18/18 10:00 - Medications Medications: Current Medications Acetaminophen (Tylenol 325mg Tab) 325 mg PO Q4 PRN PRN Reason: Fever >100.4 F Albuterol/Ipratropium (Duoneb 3 Mg/0.5 Mg (3 Ml) Ud) 3 ml INH RQ6 PRN PRN Reason: Shortness of Breath Last Admin: 01/17/18 20:45 Dose: 3 ml Bisacodyl (Dulcolax) 10 mg PO DAILY PRN PRN Reason: Constipation Last Admin: 01/18/18 11:42 Dose: 10 mg Cyanocobalamin (Vitamin B-12) 250 mcg PO DAILY [facility] Last Admin: 01/18/18 08:33 Dose: 250 mcg Digoxin (Digoxin) 0.125 mg PO SUMOTUTHFR [facility] Last Admin: 01/17/18 18:05 Dose: 0.125 mg Digoxin (Lanoxin) 0.25 mg PO WESA [facility] Last Admin: 01/16/18 09:28 Dose: 0.25 mg Ergocalciferol (Drisdol 50,000 Intl Units Cap) 1 cap PO MO [facility] Last Admin: 01/11/18 18:40 Dose: 1 cap Clindamycin Phosphate (Cleocin) 600 mg in 50 mls @ 50 mls/hr IVPB Q12@0500,1700 [facility]; Protocol Last Admin: 01/18/18 04:55 Dose: 50 mls/hr Cefepime HCl 1 gm/ Sodium (Chloride) 100 mls @ 100 mls/hr IVPB Q8@0500,1300,2100 [facility]; Protocol Last Admin: 12/03/18 12:50 Dose: 100 mls/hr Levothyroxine Sodium (Synthroid) 175 mcg PO DAILY@0630 [facility] Last Admin: 01/18/18 06:31 Dose: 175 mcg Prednisone (Prednisone Tab) 10 mg PO Q24H [facility] Stop: 01/19/18 11:28 Last Admin: 01/18/18 11:44 Dose: 10 mg Rivaroxaban (Xarelto) 15 mg PO QD5 [facility]; Protocol Last Admin: 01/17/18 16:52 Dose: 15 mg Zolpidem Tartrate (Ambien) 5 mg PO HS PRN PRN Reason: Insomnia - Labs Labs: 01/18/18 13:02 01/18/18 13:02 PT 22.7 Seconds (9.8-13.1) H D 01/07/18 06:00 INR 2.0 01/07/18 06:00 - Constitutional Appears: Well, Non-toxic, No Acute Distress - Head Exam Head Exam: ATRAUMATIC, NORMOCEPHALIC - Extremities Exam Additional comments: Dressing clean/dry intact - Neurological Exam Neurological Exam: Alert, Awake, Oriented x3 - Psychiatric Exam Psychiatric exam: Normal Affect, Normal Mood Assessment and Plan - Assessment and Plan (Free Text) Assessment: 82M with right lower leg venous stasis ulceration and cellulitis Plan: Patient was examined and evaluated Discussed in detail with Dr. Davenport Afebrile, absent leukocytosis X-ray reviewed- no fracture or destructive lesion noted; no OM or acute pathology Dressing C/D/I Wound culture: klebsiella sp ID consult, recs appreciated, continue meds per ID Podiatry will continue to follow the patient
[2018-01-18] MEDS: Sodium Chloride 0.9% 1,000 ML IV SCH (18:17)
[2018-01-18] MEDS: Ergocalciferol 50,000 Intl Units Cap PO SCH (20:31)
[2018-01-18] MEDS: Meropenem 500 MG in Sodium Chloride 0.9% 100 ML IVPB SCH (20:31)
[2018-01-18] MEDS: Digoxin 125 mcg (0.125 mg) Tab PO SCH (20:32)
[2018-01-19] MEDS: Clindamycin 600mg/50ml D5W 600 MG/50 ML VIAL IVPB SCH ×2 (04:31→16:18)
[2018-01-19] MEDS: Levothyroxine 200 MCG TAB PO SCH (05:46)
[2018-01-19] MEDS: Sodium Chloride 0.9% 1,000 ML IV SCH (05:47)
[2018-01-19] MEDS: Meropenem 500 MG in Sodium Chloride 0.9% 100 ML IVPB SCH ×2 (08:11→20:53)
[2018-01-19] MEDS: CYANOCOBALAMIN (VITAMIN B-12) 250 MCG TABLET PO SCH (08:12)
--- NOTE | 2018-01-19 11:00 | CP.PCM.PN ---
Subjective - Date & Time of Evaluation Date of Evaluation: 01/19/18 Time of Evaluation: 10:58 - Subjective Subjective: Podiatry progress note for Dr. Davenport 82M seen at bedside in TCU. Resting comfortably with no pedal complaints. Denies acute events overnight. Denies N/V/F/C/SOB/CP. Has no other pedal complaints today. Objective - Vital Signs/Intake and Output Vital Signs (last 24 hours): Temp Pulse Resp BP Pulse Ox 98.2 F 63 18 143/87 99 01/19/18 08:17 01/19/18 08:17 01/19/18 08:17 01/19/18 08:17 01/19/18 08:17 - Medications Medications: Current Medications Acetaminophen (Tylenol 325mg Tab) 325 mg PO Q4 PRN PRN Reason: Fever >100.4 F Albuterol/Ipratropium (Duoneb 3 Mg/0.5 Mg (3 Ml) Ud) 3 ml INH RQ6 PRN PRN Reason: Shortness of Breath Last Admin: 01/17/18 20:45 Dose: 3 ml Bisacodyl (Dulcolax) 10 mg PO DAILY PRN PRN Reason: Constipation Last Admin: 01/18/18 11:42 Dose: 10 mg Cyanocobalamin (Vitamin B-12) 250 mcg PO DAILY [facility] Last Admin: 01/19/18 08:12 Dose: 250 mcg Digoxin (Digoxin) 0.125 mg PO SUMOTUTHFR [facility] Last Admin: 01/18/18 20:32 Dose: 0.125 mg Digoxin (Lanoxin) 0.25 mg PO WESA [facility] Last Admin: 01/16/18 09:28 Dose: 0.25 mg Ergocalciferol (Drisdol 50,000 Intl Units Cap) 1 cap PO MO [facility] Last Admin: 01/18/18 20:31 Dose: 1 cap Clindamycin Phosphate (Cleocin) 600 mg in 50 mls @ 50 mls/hr IVPB Q12@0500,1700 [facility]; Protocol Last Admin: 01/19/18 04:31 Dose: 50 mls/hr Sodium Chloride (Sodium Chloride 0.9%) 1,000 mls @ 80 mls/hr IV .[id number] [facility] Stop: 01/19/18 16:13 Last Admin: 01/19/18 05:47 Dose: 80 mls/hr Meropenem 500 mg/ Sodium (Chloride) 100 mls @ 100 mls/hr IVPB Q12 [facility]; Protocol Last Admin: 01/19/18 08:11 Dose: 100 mls/hr Levothyroxine Sodium (Synthroid) 200 mcg PO DAILY@0630 [facility] Last Admin: 01/19/18 05:46 Dose: 200 mcg Prednisone (Prednisone Tab) 10 mg PO Q24H [facility] Stop: 01/19/18 11:28 Last Admin: 01/18/18 11:44 Dose: 10 mg Rivaroxaban (Xarelto) 15 mg PO QD5 [facility]; Protocol Last Admin: 01/18/18 18:18 Dose: 15 mg Zolpidem Tartrate (Ambien) 5 mg PO HS PRN PRN Reason: Insomnia - Labs Labs: 01/18/18 13:02 01/18/18 13:02 PT 22.7 Seconds (9.8-13.1) H D 01/07/18 06:00 INR 2.0 01/07/18 06:00 - Constitutional Appears: Well, Non-toxic, No Acute Distress - Head Exam Head Exam: ATRAUMATIC, NORMOCEPHALIC - Extremities Exam Additional comments: Vasc: DP and PT 1/4, temperature gradient cool to cool, CFT <4 seconds to the digits, edema noted to the LE bilaterally Ortho: MM is 5/5 in all four compartments, tenderness noted to palpation surrounding ulceration site Neuro: sensation slightly diminished Derm: ulceration on the lateral aspect of lower 1/3 of the right leg measuring approximately 3.0 x 2.7 x 0.1. Wound base is 100% granular. no sanguinous drainage noted, no odor, no purulence noted, hyperpigmentation of the skin noted extending to the anterior lateral leg. No probe to bone, no undermining, no tunneling noted - Neurological Exam Neurological Exam: Alert, Awake, Oriented x3 - Psychiatric Exam Psychiatric exam: Normal Affect, Normal Mood Assessment and Plan - Assessment and Plan (Free Text) Assessment: 82 year old male with right lower leg ulceration Plan: Patient was examined and evaluated Discussed in detail with Dr. Davenport Afebrile, absent leukocytosis X-ray reviewed- no fracture or destructive lesion noted; no OM or acute pathology Ulceration cleansed, dressed with betadine, 4x4, kerlix Wound culture: klebsiella sp ID consult, recs appreciated, continue meds per ID Podiatry will continue to follow the patient
[2018-01-19 11:21] LABS: HEMOGLOBIN 12.2 g/dL (12.0-18.0); MEAN CELL VOLUME 102.8 fl (80.0-94.0); MEAN CORPUSCULAR HEMOGLOBIN 33.3 pg (27.0-31.0); MEAN CORPUSCULAR HGB CONC 32.3 g/dL (33.0-37.0); RBC 3.67 Mil/uL (4.40-5.90); WHITE BLOOD COUNT 13.5 K/uL (4.8-10.8)
[2018-01-19] MEDS ORDERED: Influenza Vaccine (5 YR UP)/PF 60 MCG/0.5 ML SYR IM ONE (15:02)
[2018-01-19] MEDS: Digoxin 125 mcg (0.125 mg) Tab PO SCH (18:24)
[2018-01-20] MEDS: Clindamycin 600mg/50ml D5W 600 MG/50 ML VIAL IVPB SCH ×2 (04:33→16:35)
[2018-01-20] MEDS: Levothyroxine 200 MCG TAB PO SCH (05:53)
[2018-01-20 06:17] LABS: HEMOGLOBIN 11.6 g/dL (12.0-18.0); MEAN CELL VOLUME 100.4 fl (80.0-94.0); MEAN CORPUSCULAR HEMOGLOBIN 32.9 pg (27.0-31.0); MEAN CORPUSCULAR HGB CONC 32.8 g/dL (33.0-37.0); RBC 3.53 Mil/uL (4.40-5.90); RED CELL DISTRIBUTION WIDTH 16.1 % (11.5-14.5)
[2018-01-20 06:31] LABS: BLOOD UREA NITROGEN 33 mg/dl (9-20); CALCIUM 8.9 mg/dL (8.4-10.2); GFR NON-AFRICAN AMERICAN > 60
[2018-01-20] MEDS: Meropenem 500 MG in Sodium Chloride 0.9% 100 ML IVPB SCH ×2 (08:04→21:07)
[2018-01-20] MEDS: Albuterol-Ipratrop 3 mg / 0.5 (3 ml) UD INH PRN (08:13)
[2018-01-20] MEDS: X PO SCH (09:32)
[2018-01-20] MEDS: CYANOCOBALAMIN (VITAMIN B-12) 250 MCG TABLET PO SCH (12:27)
[2018-01-21] MEDS: Levothyroxine 125 MCG TAB PO SCH (06:00)
[2018-01-21] MEDS: Clindamycin 600mg/50ml D5W 600 MG/50 ML VIAL IVPB SCH ×2 (06:06→16:53)
[2018-01-21] MEDS: Meropenem 500 MG in Sodium Chloride 0.9% 100 ML IVPB SCH ×2 (10:19→21:23)
[2018-01-21] MEDS: CYANOCOBALAMIN (VITAMIN B-12) 250 MCG TABLET PO SCH (10:19)
--- NOTE | 2018-01-21 11:11 | CP.PCM.PN ---
Subjective - Date & Time of Evaluation Date of Evaluation: 01/13/18 Time of Evaluation: 11:00 - Subjective Subjective: patient seen and examined at bedside. no acute events overnight. states he feels better. denies cp/sob. Objective - Vital Signs/Intake and Output Vital Signs (last 24 hours): Temp Pulse Resp BP Pulse Ox 97.6 F 62 18 119/77 98 01/21/18 08:42 01/21/18 08:42 01/21/18 08:42 01/21/18 08:42 01/21/18 08:42 - Medications Medications: Current Medications Acetaminophen (Tylenol 325mg Tab) 325 mg PO Q4 PRN PRN Reason: Fever >100.4 F Albuterol/Ipratropium (Duoneb 3 Mg/0.5 Mg (3 Ml) Ud) 3 ml INH RQ6 PRN PRN Reason: Shortness of Breath Last Admin: 01/20/18 08:13 Dose: 3 ml Bisacodyl (Dulcolax) 10 mg PO DAILY PRN PRN Reason: Constipation Last Admin: 01/18/18 11:42 Dose: 10 mg Cyanocobalamin (Vitamin B-12) 250 mcg PO DAILY [facility] Last Admin: 01/21/18 10:19 Dose: 250 mcg Digoxin (Digoxin) 0.125 mg PO SUMOTUTHFR [facility] Last Admin: 01/19/18 18:24 Dose: 0.125 mg Digoxin (Lanoxin) 0.25 mg PO WESA [facility] Last Admin: 01/20/18 09:32 Dose: 0.25 mg Ergocalciferol (Drisdol 50,000 Intl Units Cap) 1 cap PO MO [facility] Last Admin: 01/18/18 20:31 Dose: 1 cap Clindamycin Phosphate (Cleocin) 600 mg in 50 mls @ 50 mls/hr IVPB Q12@0500,1700 [facility]; Protocol Last Admin: 01/21/18 06:06 Dose: 50 mls/hr Meropenem 500 mg/ Sodium (Chloride) 100 mls @ 100 mls/hr IVPB Q12 [facility]; Protocol Last Admin: 01/21/18 10:19 Dose: 100 mls/hr Levothyroxine Sodium (Synthroid) 250 mcg PO DAILY@0630 [facility] Last Admin: 01/21/18 06:00 Dose: 250 mcg Rivaroxaban (Xarelto) 15 mg PO QD5 [facility]; Protocol Last Admin: 01/20/18 16:36 Dose: 15 mg Zolpidem Tartrate (Ambien) 5 mg PO HS PRN PRN Reason: Insomnia - Labs Labs: 01/20/18 05:30 01/20/18 05:30 PT 22.7 Seconds (9.8-13.1) H D 01/07/18 06:00 INR 2.0 01/07/18 06:00 - Additional Findings Additional findings: - Head Exam Head Exam: NORMAL INSPECTION - Eye Exam Eye Exam: Normal appearance - Respiratory Exam Respiratory Exam: Clear to Ausculation Bilateral - Cardiovascular Exam Cardiovascular Exam: Irregular Rhythm - GI/Abdominal Exam GI & Abdominal Exam: Soft - Neurological Exam Neurological Exam: Awake, Oriented x3 Assessment and Plan - Assessment and Plan (Free Text) Assessment: Cont meds Cont tx Cont PT appreciate recommendations by cardiology/ID
--- NOTE | 2018-01-21 11:13 | CP.PCM.PN ---
Subjective - Date & Time of Evaluation Date of Evaluation: 01/14/18 Time of Evaluation: 11:00 - Subjective Subjective: patient seen and examined at bedside. no acute events overnight. states he feels better. denies cp/sob. Objective - Vital Signs/Intake and Output Vital Signs (last 24 hours): Temp Pulse Resp BP Pulse Ox 97.6 F 62 18 119/77 98 01/21/18 08:42 01/21/18 08:42 01/21/18 08:42 01/21/18 08:42 01/21/18 08:42 - Medications Medications: Current Medications Acetaminophen (Tylenol 325mg Tab) 325 mg PO Q4 PRN PRN Reason: Fever >100.4 F Albuterol/Ipratropium (Duoneb 3 Mg/0.5 Mg (3 Ml) Ud) 3 ml INH RQ6 PRN PRN Reason: Shortness of Breath Last Admin: 01/20/18 08:13 Dose: 3 ml Bisacodyl (Dulcolax) 10 mg PO DAILY PRN PRN Reason: Constipation Last Admin: 01/18/18 11:42 Dose: 10 mg Cyanocobalamin (Vitamin B-12) 250 mcg PO DAILY [facility] Last Admin: 01/21/18 10:19 Dose: 250 mcg Digoxin (Digoxin) 0.125 mg PO SUMOTUTHFR [facility] Last Admin: 01/19/18 18:24 Dose: 0.125 mg Digoxin (Lanoxin) 0.25 mg PO WESA [facility] Last Admin: 01/20/18 09:32 Dose: 0.25 mg Ergocalciferol (Drisdol 50,000 Intl Units Cap) 1 cap PO MO [facility] Last Admin: 01/18/18 20:31 Dose: 1 cap Clindamycin Phosphate (Cleocin) 600 mg in 50 mls @ 50 mls/hr IVPB Q12@0500,1700 [facility]; Protocol Last Admin: 01/21/18 06:06 Dose: 50 mls/hr Meropenem 500 mg/ Sodium (Chloride) 100 mls @ 100 mls/hr IVPB Q12 [facility]; Protocol Last Admin: 01/21/18 10:19 Dose: 100 mls/hr Levothyroxine Sodium (Synthroid) 250 mcg PO DAILY@0630 [facility] Last Admin: 01/21/18 06:00 Dose: 250 mcg Rivaroxaban (Xarelto) 15 mg PO QD5 [facility]; Protocol Last Admin: 01/20/18 16:36 Dose: 15 mg Zolpidem Tartrate (Ambien) 5 mg PO HS PRN PRN Reason: Insomnia - Labs Labs: 01/20/18 05:30 01/20/18 05:30 PT 22.7 Seconds (9.8-13.1) H D 01/07/18 06:00 INR 2.0 01/07/18 06:00 - Additional Findings Additional findings: - Head Exam Head Exam: NORMAL INSPECTION - Eye Exam Eye Exam: Normal appearance - Respiratory Exam Respiratory Exam: Clear to Ausculation Bilateral - Cardiovascular Exam Cardiovascular Exam: Irregular Rhythm - GI/Abdominal Exam GI & Abdominal Exam: Soft - Neurological Exam Neurological Exam: Awake, Oriented x3 Assessment and Plan - Assessment and Plan (Free Text) Assessment: Cont meds Cont tx Cont PT appreciate recommendations by podiatry/ID
--- NOTE | 2018-01-21 11:14 | CP.PCM.PN ---
Subjective - Date & Time of Evaluation Date of Evaluation: 01/15/18 Time of Evaluation: 11:00 - Subjective Subjective: patient seen and examined at bedside. no acute events overnight. states he feels better. denies cp/sob. Objective - Vital Signs/Intake and Output Vital Signs (last 24 hours): Temp Pulse Resp BP Pulse Ox 97.6 F 62 18 119/77 98 01/21/18 08:42 01/21/18 08:42 01/21/18 08:42 01/21/18 08:42 01/21/18 08:42 - Medications Medications: Current Medications Acetaminophen (Tylenol 325mg Tab) 325 mg PO Q4 PRN PRN Reason: Fever >100.4 F Albuterol/Ipratropium (Duoneb 3 Mg/0.5 Mg (3 Ml) Ud) 3 ml INH RQ6 PRN PRN Reason: Shortness of Breath Last Admin: 01/20/18 08:13 Dose: 3 ml Bisacodyl (Dulcolax) 10 mg PO DAILY PRN PRN Reason: Constipation Last Admin: 01/18/18 11:42 Dose: 10 mg Cyanocobalamin (Vitamin B-12) 250 mcg PO DAILY [facility] Last Admin: 01/21/18 10:19 Dose: 250 mcg Digoxin (Digoxin) 0.125 mg PO SUMOTUTHFR [facility] Last Admin: 01/19/18 18:24 Dose: 0.125 mg Digoxin (Lanoxin) 0.25 mg PO WESA [facility] Last Admin: 01/20/18 09:32 Dose: 0.25 mg Ergocalciferol (Drisdol 50,000 Intl Units Cap) 1 cap PO MO [facility] Last Admin: 01/18/18 20:31 Dose: 1 cap Clindamycin Phosphate (Cleocin) 600 mg in 50 mls @ 50 mls/hr IVPB Q12@0500,1700 [facility]; Protocol Last Admin: 01/21/18 06:06 Dose: 50 mls/hr Meropenem 500 mg/ Sodium (Chloride) 100 mls @ 100 mls/hr IVPB Q12 [facility]; Protocol Last Admin: 01/21/18 10:19 Dose: 100 mls/hr Levothyroxine Sodium (Synthroid) 250 mcg PO DAILY@0630 [facility] Last Admin: 01/21/18 06:00 Dose: 250 mcg Rivaroxaban (Xarelto) 15 mg PO QD5 [facility]; Protocol Last Admin: 01/20/18 16:36 Dose: 15 mg Zolpidem Tartrate (Ambien) 5 mg PO HS PRN PRN Reason: Insomnia - Labs Labs: 01/20/18 05:30 01/20/18 05:30 PT 22.7 Seconds (9.8-13.1) H D 01/07/18 06:00 INR 2.0 01/07/18 06:00 - Additional Findings Additional findings: - Head Exam Head Exam: NORMAL INSPECTION - Eye Exam Eye Exam: Normal appearance - Respiratory Exam Respiratory Exam: Clear to Ausculation Bilateral - Cardiovascular Exam Cardiovascular Exam: Irregular Rhythm - GI/Abdominal Exam GI & Abdominal Exam: Soft - Neurological Exam Neurological Exam: Awake, Oriented x3 Assessment and Plan - Assessment and Plan (Free Text) Assessment: Cont meds Cont tx Cont PT appreciate recommendations by podiatry/ID
--- NOTE | 2018-01-21 11:14 | CP.PCM.PN ---
Subjective - Date & Time of Evaluation Date of Evaluation: 01/16/18 Time of Evaluation: 11:00 - Subjective Subjective: patient seen and examined at bedside. no acute events overnight. states he feels better. denies cp/sob. Objective - Vital Signs/Intake and Output Vital Signs (last 24 hours): Temp Pulse Resp BP Pulse Ox 97.6 F 62 18 119/77 98 01/21/18 08:42 01/21/18 08:42 01/21/18 08:42 01/21/18 08:42 01/21/18 08:42 - Medications Medications: Current Medications Acetaminophen (Tylenol 325mg Tab) 325 mg PO Q4 PRN PRN Reason: Fever >100.4 F Albuterol/Ipratropium (Duoneb 3 Mg/0.5 Mg (3 Ml) Ud) 3 ml INH RQ6 PRN PRN Reason: Shortness of Breath Last Admin: 01/20/18 08:13 Dose: 3 ml Bisacodyl (Dulcolax) 10 mg PO DAILY PRN PRN Reason: Constipation Last Admin: 01/18/18 11:42 Dose: 10 mg Cyanocobalamin (Vitamin B-12) 250 mcg PO DAILY [facility] Last Admin: 01/21/18 10:19 Dose: 250 mcg Digoxin (Digoxin) 0.125 mg PO SUMOTUTHFR [facility] Last Admin: 01/19/18 18:24 Dose: 0.125 mg Digoxin (Lanoxin) 0.25 mg PO WESA [facility] Last Admin: 01/20/18 09:32 Dose: 0.25 mg Ergocalciferol (Drisdol 50,000 Intl Units Cap) 1 cap PO MO [facility] Last Admin: 01/18/18 20:31 Dose: 1 cap Clindamycin Phosphate (Cleocin) 600 mg in 50 mls @ 50 mls/hr IVPB Q12@0500,1700 [facility]; Protocol Last Admin: 01/21/18 06:06 Dose: 50 mls/hr Meropenem 500 mg/ Sodium (Chloride) 100 mls @ 100 mls/hr IVPB Q12 [facility]; Protocol Last Admin: 01/21/18 10:19 Dose: 100 mls/hr Levothyroxine Sodium (Synthroid) 250 mcg PO DAILY@0630 [facility] Last Admin: 01/21/18 06:00 Dose: 250 mcg Rivaroxaban (Xarelto) 15 mg PO QD5 [facility]; Protocol Last Admin: 01/20/18 16:36 Dose: 15 mg Zolpidem Tartrate (Ambien) 5 mg PO HS PRN PRN Reason: Insomnia - Labs Labs: 01/20/18 05:30 01/20/18 05:30 PT 22.7 Seconds (9.8-13.1) H D 01/07/18 06:00 INR 2.0 01/07/18 06:00 - Additional Findings Additional findings: - Head Exam Head Exam: NORMAL INSPECTION - Eye Exam Eye Exam: Normal appearance - Respiratory Exam Respiratory Exam: Clear to Ausculation Bilateral - Cardiovascular Exam Cardiovascular Exam: Irregular Rhythm - GI/Abdominal Exam GI & Abdominal Exam: Soft - Neurological Exam Neurological Exam: Awake, Oriented x3 Assessment and Plan - Assessment and Plan (Free Text) Assessment: Cont meds Cont tx Cont PT appreciate recommendations by podiatry/ID
--- NOTE | 2018-01-21 11:16 | CP.PCM.PN ---
Subjective - Date & Time of Evaluation Date of Evaluation: 01/17/18 Time of Evaluation: 11:00 - Subjective Subjective: patient seen and examined at bedside. no acute events overnight. states he feels generally weak today. denies cp/sob. Objective - Vital Signs/Intake and Output Vital Signs (last 24 hours): Temp Pulse Resp BP Pulse Ox 97.6 F 62 18 119/77 98 01/21/18 08:42 01/21/18 08:42 01/21/18 08:42 01/21/18 08:42 01/21/18 08:42 - Medications Medications: Current Medications Acetaminophen (Tylenol 325mg Tab) 325 mg PO Q4 PRN PRN Reason: Fever >100.4 F Albuterol/Ipratropium (Duoneb 3 Mg/0.5 Mg (3 Ml) Ud) 3 ml INH RQ6 PRN PRN Reason: Shortness of Breath Last Admin: 01/20/18 08:13 Dose: 3 ml Bisacodyl (Dulcolax) 10 mg PO DAILY PRN PRN Reason: Constipation Last Admin: 01/18/18 11:42 Dose: 10 mg Cyanocobalamin (Vitamin B-12) 250 mcg PO DAILY [facility] Last Admin: 01/21/18 10:19 Dose: 250 mcg Digoxin (Digoxin) 0.125 mg PO SUMOTUTHFR [facility] Last Admin: 01/19/18 18:24 Dose: 0.125 mg Digoxin (Lanoxin) 0.25 mg PO WESA [facility] Last Admin: 01/20/18 09:32 Dose: 0.25 mg Ergocalciferol (Drisdol 50,000 Intl Units Cap) 1 cap PO MO [facility] Last Admin: 01/18/18 20:31 Dose: 1 cap Clindamycin Phosphate (Cleocin) 600 mg in 50 mls @ 50 mls/hr IVPB Q12@0500,1700 [facility]; Protocol Last Admin: 01/21/18 06:06 Dose: 50 mls/hr Meropenem 500 mg/ Sodium (Chloride) 100 mls @ 100 mls/hr IVPB Q12 [facility]; Protocol Last Admin: 01/21/18 10:19 Dose: 100 mls/hr Levothyroxine Sodium (Synthroid) 250 mcg PO DAILY@0630 [facility] Last Admin: 01/21/18 06:00 Dose: 250 mcg Rivaroxaban (Xarelto) 15 mg PO QD5 [facility]; Protocol Last Admin: 01/20/18 16:36 Dose: 15 mg Zolpidem Tartrate (Ambien) 5 mg PO HS PRN PRN Reason: Insomnia - Labs Labs: 01/20/18 05:30 01/20/18 05:30 PT 22.7 Seconds (9.8-13.1) H D 01/07/18 06:00 INR 2.0 01/07/18 06:00 - Constitutional Appears: Non-toxic, No Acute Distress - Head Exam Head Exam: NORMAL INSPECTION - Eye Exam Eye Exam: Normal appearance - Respiratory Exam Respiratory Exam: NORMAL BREATHING PATTERN - Cardiovascular Exam Cardiovascular Exam: +S1, +S2 - GI/Abdominal Exam GI & Abdominal Exam: Soft - Neurological Exam Neurological Exam: Alert, Awake, Oriented x3 - Psychiatric Exam Psychiatric exam: Normal Affect, Normal Mood - Skin Skin Exam: Normal Color, Warm Assessment and Plan - Assessment and Plan (Free Text) Assessment: Cont meds Cont tx Cont PT obtain labs monitor vitals appreciate recommendations by podiatry/ID
--- NOTE | 2018-01-21 11:17 | CP.PCM.PN ---
Subjective - Date & Time of Evaluation Date of Evaluation: 01/18/18 Time of Evaluation: 11:00 - Subjective Subjective: patient seen and examined at bedside. no acute events overnight. states he continues to feel generally weak today. denies cp/sob. Objective - Vital Signs/Intake and Output Vital Signs (last 24 hours): Temp Pulse Resp BP Pulse Ox 97.6 F 62 18 119/77 98 01/21/18 08:42 01/21/18 08:42 01/21/18 08:42 01/21/18 08:42 01/21/18 08:42 - Medications Medications: Current Medications Acetaminophen (Tylenol 325mg Tab) 325 mg PO Q4 PRN PRN Reason: Fever >100.4 F Albuterol/Ipratropium (Duoneb 3 Mg/0.5 Mg (3 Ml) Ud) 3 ml INH RQ6 PRN PRN Reason: Shortness of Breath Last Admin: 01/20/18 08:13 Dose: 3 ml Bisacodyl (Dulcolax) 10 mg PO DAILY PRN PRN Reason: Constipation Last Admin: 01/18/18 11:42 Dose: 10 mg Cyanocobalamin (Vitamin B-12) 250 mcg PO DAILY [facility] Last Admin: 01/21/18 10:19 Dose: 250 mcg Digoxin (Digoxin) 0.125 mg PO SUMOTUTHFR [facility] Last Admin: 01/19/18 18:24 Dose: 0.125 mg Digoxin (Lanoxin) 0.25 mg PO WESA [facility] Last Admin: 01/20/18 09:32 Dose: 0.25 mg Ergocalciferol (Drisdol 50,000 Intl Units Cap) 1 cap PO MO [facility] Last Admin: 01/18/18 20:31 Dose: 1 cap Clindamycin Phosphate (Cleocin) 600 mg in 50 mls @ 50 mls/hr IVPB Q12@0500,1700 [facility]; Protocol Last Admin: 01/21/18 06:06 Dose: 50 mls/hr Meropenem 500 mg/ Sodium (Chloride) 100 mls @ 100 mls/hr IVPB Q12 [facility]; Protocol Last Admin: 01/21/18 10:19 Dose: 100 mls/hr Levothyroxine Sodium (Synthroid) 250 mcg PO DAILY@0630 [facility] Last Admin: 01/21/18 06:00 Dose: 250 mcg Rivaroxaban (Xarelto) 15 mg PO QD5 [facility]; Protocol Last Admin: 01/20/18 16:36 Dose: 15 mg Zolpidem Tartrate (Ambien) 5 mg PO HS PRN PRN Reason: Insomnia - Labs Labs: 01/20/18 05:30 01/20/18 05:30 PT 22.7 Seconds (9.8-13.1) H D 01/07/18 06:00 INR 2.0 01/07/18 06:00 - Additional Findings Additional findings: - Constitutional Appears: Non-toxic, No Acute Distress - Head Exam Head Exam: NORMAL INSPECTION - Eye Exam Eye Exam: Normal appearance - Respiratory Exam Respiratory Exam: NORMAL BREATHING PATTERN - Cardiovascular Exam Cardiovascular Exam: +S1, +S2 - GI/Abdominal Exam GI & Abdominal Exam: Soft - Neurological Exam Neurological Exam: Alert, Awake, Oriented x3 - Psychiatric Exam Psychiatric exam: Normal Affect, Normal Mood - Skin Skin Exam: Normal Color, Warm Assessment and Plan - Assessment and Plan (Free Text) Assessment: Cont meds Cont tx Cont PT TSH elevated, increase levothyroxine appreciate recommendations by podiatry/ID
--- NOTE | 2018-01-21 11:19 | CP.PCM.PN ---
Subjective - Date & Time of Evaluation Date of Evaluation: 01/19/18 Time of Evaluation: 11:00 - Subjective Subjective: patient seen and examined at bedside. no acute events overnight. mild improvement in fatigue/weakness. denies cp/sob. Objective - Vital Signs/Intake and Output Vital Signs (last 24 hours): Temp Pulse Resp BP Pulse Ox 97.6 F 62 18 119/77 98 01/21/18 08:42 01/21/18 08:42 01/21/18 08:42 01/21/18 08:42 01/21/18 08:42 - Medications Medications: Current Medications Acetaminophen (Tylenol 325mg Tab) 325 mg PO Q4 PRN PRN Reason: Fever >100.4 F Albuterol/Ipratropium (Duoneb 3 Mg/0.5 Mg (3 Ml) Ud) 3 ml INH RQ6 PRN PRN Reason: Shortness of Breath Last Admin: 01/20/18 08:13 Dose: 3 ml Bisacodyl (Dulcolax) 10 mg PO DAILY PRN PRN Reason: Constipation Last Admin: 01/18/18 11:42 Dose: 10 mg Cyanocobalamin (Vitamin B-12) 250 mcg PO DAILY [facility] Last Admin: 01/21/18 10:19 Dose: 250 mcg Digoxin (Digoxin) 0.125 mg PO SUMOTUTHFR [facility] Last Admin: 01/19/18 18:24 Dose: 0.125 mg Digoxin (Lanoxin) 0.25 mg PO WESA [facility] Last Admin: 01/20/18 09:32 Dose: 0.25 mg Ergocalciferol (Drisdol 50,000 Intl Units Cap) 1 cap PO MO [facility] Last Admin: 01/18/18 20:31 Dose: 1 cap Clindamycin Phosphate (Cleocin) 600 mg in 50 mls @ 50 mls/hr IVPB Q12@0500,1700 [facility]; Protocol Last Admin: 01/21/18 06:06 Dose: 50 mls/hr Meropenem 500 mg/ Sodium (Chloride) 100 mls @ 100 mls/hr IVPB Q12 [facility]; Protocol Last Admin: 01/21/18 10:19 Dose: 100 mls/hr Levothyroxine Sodium (Synthroid) 250 mcg PO DAILY@0630 [facility] Last Admin: 01/21/18 06:00 Dose: 250 mcg Rivaroxaban (Xarelto) 15 mg PO QD5 [facility]; Protocol Last Admin: 01/20/18 16:36 Dose: 15 mg Zolpidem Tartrate (Ambien) 5 mg PO HS PRN PRN Reason: Insomnia - Labs Labs: 01/20/18 05:30 01/20/18 05:30 PT 22.7 Seconds (9.8-13.1) H D 01/07/18 06:00 INR 2.0 01/07/18 06:00 - Additional Findings Additional findings: - Constitutional Appears: Non-toxic, No Acute Distress - Head Exam Head Exam: NORMAL INSPECTION - Eye Exam Eye Exam: Normal appearance - Respiratory Exam Respiratory Exam: NORMAL BREATHING PATTERN - Cardiovascular Exam Cardiovascular Exam: +S1, +S2 - GI/Abdominal Exam GI & Abdominal Exam: Soft - Neurological Exam Neurological Exam: Alert, Awake, Oriented x3 - Psychiatric Exam Psychiatric exam: Normal Affect, Normal Mood - Skin Skin Exam: Normal Color, Warm Assessment and Plan - Assessment and Plan (Free Text) Assessment: Cont meds Cont tx Cont PT TSH elevated, increased levothyroxine, monitor symptoms appreciate recommendations by podiatry/ID
--- NOTE | 2018-01-21 11:20 | CP.PCM.PN ---
Subjective - Date & Time of Evaluation Date of Evaluation: 01/20/18 Time of Evaluation: 11:00 - Subjective Subjective: patient seen and examined at bedside. no acute events overnight. improvement in fatigue/weakness. denies cp/sob. Objective - Vital Signs/Intake and Output Vital Signs (last 24 hours): Temp Pulse Resp BP Pulse Ox 97.6 F 62 18 119/77 98 01/21/18 08:42 01/21/18 08:42 01/21/18 08:42 01/21/18 08:42 01/21/18 08:42 - Medications Medications: Current Medications Acetaminophen (Tylenol 325mg Tab) 325 mg PO Q4 PRN PRN Reason: Fever >100.4 F Albuterol/Ipratropium (Duoneb 3 Mg/0.5 Mg (3 Ml) Ud) 3 ml INH RQ6 PRN PRN Reason: Shortness of Breath Last Admin: 01/20/18 08:13 Dose: 3 ml Bisacodyl (Dulcolax) 10 mg PO DAILY PRN PRN Reason: Constipation Last Admin: 01/18/18 11:42 Dose: 10 mg Cyanocobalamin (Vitamin B-12) 250 mcg PO DAILY [facility] Last Admin: 01/21/18 10:19 Dose: 250 mcg Digoxin (Digoxin) 0.125 mg PO SUMOTUTHFR [facility] Last Admin: 01/19/18 18:24 Dose: 0.125 mg Digoxin (Lanoxin) 0.25 mg PO WESA [facility] Last Admin: 01/20/18 09:32 Dose: 0.25 mg Ergocalciferol (Drisdol 50,000 Intl Units Cap) 1 cap PO MO [facility] Last Admin: 01/18/18 20:31 Dose: 1 cap Clindamycin Phosphate (Cleocin) 600 mg in 50 mls @ 50 mls/hr IVPB Q12@0500,1700 [facility]; Protocol Last Admin: 01/21/18 06:06 Dose: 50 mls/hr Meropenem 500 mg/ Sodium (Chloride) 100 mls @ 100 mls/hr IVPB Q12 [facility]; Protocol Last Admin: 01/21/18 10:19 Dose: 100 mls/hr Levothyroxine Sodium (Synthroid) 250 mcg PO DAILY@0630 [facility] Last Admin: 01/21/18 06:00 Dose: 250 mcg Rivaroxaban (Xarelto) 15 mg PO QD5 [facility]; Protocol Last Admin: 01/20/18 16:36 Dose: 15 mg Zolpidem Tartrate (Ambien) 5 mg PO HS PRN PRN Reason: Insomnia - Labs Labs: 01/20/18 05:30 01/20/18 05:30 PT 22.7 Seconds (9.8-13.1) H D 01/07/18 06:00 INR 2.0 01/07/18 06:00 - Additional Findings Additional findings: - Constitutional Appears: Non-toxic, No Acute Distress - Head Exam Head Exam: NORMAL INSPECTION - Eye Exam Eye Exam: Normal appearance - Respiratory Exam Respiratory Exam: NORMAL BREATHING PATTERN - Cardiovascular Exam Cardiovascular Exam: +S1, +S2 - GI/Abdominal Exam GI & Abdominal Exam: Soft - Neurological Exam Neurological Exam: Alert, Awake, Oriented x3 - Psychiatric Exam Psychiatric exam: Normal Affect, Normal Mood - Skin Skin Exam: Normal Color, Warm Assessment and Plan - Assessment and Plan (Free Text) Assessment: Cont meds Cont tx Cont PT improved with increased levothyroxine appreciate recommendations by podiatry/ID
--- NOTE | 2018-01-21 11:21 | CP.PCM.PN ---
Subjective - Date & Time of Evaluation Date of Evaluation: 01/21/18 Time of Evaluation: 11:00 - Subjective Subjective: patient seen and examined at bedside. no acute events overnight. improvement in fatigue/weakness. Doing well with PT. denies cp/sob. Objective - Vital Signs/Intake and Output Vital Signs (last 24 hours): Temp Pulse Resp BP Pulse Ox 97.6 F 62 18 119/77 98 01/21/18 08:42 01/21/18 08:42 01/21/18 08:42 01/21/18 08:42 01/21/18 08:42 - Medications Medications: Current Medications Acetaminophen (Tylenol 325mg Tab) 325 mg PO Q4 PRN PRN Reason: Fever >100.4 F Albuterol/Ipratropium (Duoneb 3 Mg/0.5 Mg (3 Ml) Ud) 3 ml INH RQ6 PRN PRN Reason: Shortness of Breath Last Admin: 01/20/18 08:13 Dose: 3 ml Bisacodyl (Dulcolax) 10 mg PO DAILY PRN PRN Reason: Constipation Last Admin: 01/18/18 11:42 Dose: 10 mg Cyanocobalamin (Vitamin B-12) 250 mcg PO DAILY [facility] Last Admin: 01/21/18 10:19 Dose: 250 mcg Digoxin (Digoxin) 0.125 mg PO [facility]OTUTHFR [facility] Last Admin: 01/19/18 18:24 Dose: 0.125 mg Digoxin (Lanoxin) 0.25 mg PO WESA [facility] Last Admin: 01/20/18 09:32 Dose: 0.25 mg Ergocalciferol (Drisdol 50,000 Intl Units Cap) 1 cap PO MO [facility] Last Admin: 01/18/18 20:31 Dose: 1 cap Clindamycin Phosphate (Cleocin) 600 mg in 50 mls @ 50 mls/hr IVPB Q12@0500,1700 [facility]; Protocol Last Admin: 01/21/18 06:06 Dose: 50 mls/hr Meropenem 500 mg/ Sodium (Chloride) 100 mls @ 100 mls/hr IVPB Q12 [facility]; Protocol Last Admin: 01/21/18 10:19 Dose: 100 mls/hr Levothyroxine Sodium (Synthroid) 250 mcg PO DAILY@0630 [facility] Last Admin: 01/21/18 06:00 Dose: 250 mcg Rivaroxaban (Xarelto) 15 mg PO QD5 [facility]; Protocol Last Admin: 01/20/18 16:36 Dose: 15 mg Zolpidem Tartrate (Ambien) 5 mg PO HS PRN PRN Reason: Insomnia - Labs Labs: 01/20/18 05:30 01/20/18 05:30 PT 22.7 Seconds (9.8-13.1) H D 01/07/18 06:00 INR 2.0 01/07/18 06:00 - Additional Findings Additional findings: - Constitutional Appears: Non-toxic, No Acute Distress - Head Exam Head Exam: NORMAL INSPECTION - Eye Exam Eye Exam: Normal appearance - Respiratory Exam Respiratory Exam: NORMAL BREATHING PATTERN - Cardiovascular Exam Cardiovascular Exam: +S1, +S2 - GI/Abdominal Exam GI & Abdominal Exam: Soft - Neurological Exam Neurological Exam: Alert, Awake, Oriented x3 - Psychiatric Exam Psychiatric exam: Normal Affect, Normal Mood - Skin Skin Exam: Normal Color, Warm Assessment and Plan - Assessment and Plan (Free Text) Assessment: Cont meds Cont tx Cont PT improved with increased levothyroxine though TSH more elevated, will increase levothyroxine appreciate recommendations by podiatry/ID
[2018-01-21 11:46] LABS: SQUAMOUS EPITHIAL < 1 /hpf (0-5); URINE AMORPHOUS SEDIMENT RARE /ul (<OCC); URINE BILIRUBIN NEGATIVE (NEGATIVE); URINE BLOOD LARGE (NEGATIVE); URINE CLARITY CLEAR (Clear); URINE COLOR YELLOW (YELLOW); URINE GLUCOSE (UA) NEG (NEGATIVE); URINE LEUKOCYTE ESTERASE NEG Leu/uL (Negative); URINE PROTEIN NEGATIVE (NEGATIVE); URINE UROBILINOGEN 0.2-1.0 mg/dL (0.2-1.0)
--- NOTE | 2018-01-21 11:49 | CP.PCM.PN ---
Subjective - Date & Time of Evaluation Date of Evaluation: 01/21/18 Time of Evaluation: 11:47 - Subjective Subjective: Podiatry progress note for Dr. Davenport 82M seen at bedside in TCU. Resting comfortably with no pedal complaints. Denies acute events overnight. Denies N/V/F/C/SOB/CP. Has no other pedal complaints today. Objective - Vital Signs/Intake and Output Vital Signs (last 24 hours): Temp Pulse Resp BP Pulse Ox 97.6 F 62 18 119/77 98 01/21/18 08:42 01/21/18 08:42 01/21/18 08:42 01/21/18 08:42 01/21/18 08:42 - Medications Medications: Current Medications Acetaminophen (Tylenol 325mg Tab) 325 mg PO Q4 PRN PRN Reason: Fever >100.4 F Albuterol/Ipratropium (Duoneb 3 Mg/0.5 Mg (3 Ml) Ud) 3 ml INH RQ6 PRN PRN Reason: Shortness of Breath Last Admin: 01/20/18 08:13 Dose: 3 ml Bisacodyl (Dulcolax) 10 mg PO DAILY PRN PRN Reason: Constipation Last Admin: 01/18/18 11:42 Dose: 10 mg Cyanocobalamin (Vitamin B-12) 250 mcg PO DAILY [facility] Last Admin: 01/21/18 10:19 Dose: 250 mcg Digoxin (Digoxin) 0.125 mg PO SUMOTUTHFR [facility] Last Admin: 01/19/18 18:24 Dose: 0.125 mg Digoxin (Lanoxin) 0.25 mg PO WESA [facility] Last Admin: 01/20/18 09:32 Dose: 0.25 mg Ergocalciferol (Drisdol 50,000 Intl Units Cap) 1 cap PO MO [facility] Last Admin: 01/18/18 20:31 Dose: 1 cap Clindamycin Phosphate (Cleocin) 600 mg in 50 mls @ 50 mls/hr IVPB Q12@0500,1700 [facility]; Protocol Last Admin: 01/21/18 06:06 Dose: 50 mls/hr Meropenem 500 mg/ Sodium (Chloride) 100 mls @ 100 mls/hr IVPB Q12 [facility]; Protocol Last Admin: 01/21/18 10:19 Dose: 100 mls/hr Levothyroxine Sodium (Synthroid) 250 mcg PO DAILY@0630 [facility] Last Admin: 01/21/18 06:00 Dose: 250 mcg Rivaroxaban (Xarelto) 15 mg PO QD5 [facility]; Protocol Last Admin: 01/20/18 16:36 Dose: 15 mg Zolpidem Tartrate (Ambien) 5 mg PO HS PRN PRN Reason: Insomnia - Labs Labs: 01/20/18 05:30 01/20/18 05:30 PT 22.7 Seconds (9.8-13.1) H D 01/07/18 06:00 INR 2.0 01/07/18 06:00 - Constitutional Appears: Well, Non-toxic, No Acute Distress - Head Exam Head Exam: ATRAUMATIC, NORMOCEPHALIC - Extremities Exam Additional comments: Vasc: DP and PT 1/4, temperature gradient cool to cool, CFT <4 seconds to the digits, edema noted to the LE bilaterally Ortho: MM is 5/5 in all four compartments, tenderness noted to palpation surrounding ulceration site Neuro: sensation slightly diminished Derm: ulceration on the lateral aspect of lower 1/3 of the right leg measuring approximately 3.0 x 2.7 x 0.1. Wound base is 100% granular. no sanguinous drainage noted, no odor, no purulence noted, hyperpigmentation of the skin noted extending to the anterior lateral leg. No probe to bone, no undermining, no tunneling noted - Neurological Exam Neurological Exam: Alert, Awake, Oriented x3 - Psychiatric Exam Psychiatric exam: Normal Affect, Normal Mood Assessment and Plan - Assessment and Plan (Free Text) Assessment: 82 year old male with right lower leg ulceration Plan: Patient was examined and evaluated Discussed in detail with Dr. Davenport Afebrile, absent leukocytosis X-ray reviewed- no fracture or destructive lesion noted; no OM or acute pathology Ulceration cleansed, dressed with xeroform kerlix Wound culture: klebsiella sp ID consult, recs appreciated, continue meds per ID Podiatry will continue to follow the patient
[2018-01-21 16:29] VITALS: RESP 20
[2018-01-21] MEDS: Digoxin 125 mcg (0.125 mg) Tab PO SCH (21:21)
[2018-01-21 21:32] VITALS: PULSE 65
[2018-01-22] MEDS: Clindamycin 600mg/50ml D5W 600 MG/50 ML VIAL IVPB SCH (04:56)
[2018-01-22] MEDS: Levothyroxine 125 MCG TAB PO SCH (06:47)
[2018-01-22] MEDS: Meropenem 500 MG in Sodium Chloride 0.9% 100 ML IVPB SCH (08:11)
[2018-01-22] MEDS: CYANOCOBALAMIN (VITAMIN B-12) 250 MCG TABLET PO SCH (08:11)
[2018-01-22 08:59] VITALS: BP 99/69; PULSE 60; TEMP 98.4; O2SAT 97
--- NOTE | 2018-01-22 12:49 | CP.PCM.DIS ---
Provider - Provider Date of Admission: 01/05/18 18:53 Attending physician: Kirill Carrillo MD Consults: 01/05/18 18:53 Case Management Referral Routine Comment: Physician Instructions: Reason For Exam: Reason for Referral: Discharge Planning 01/05/18 19:57 Infectious Disease Consult Routine Comment: Consulting Provider: Brandon Vazquez Consulting Physician: Brandon Vazquez Reason for Consult: follow up 01/05/18 19:58 Podiatry Consult Routine Comment: Consulting Provider: Janki Hameed Consulting Physician: Janki Hameed Reason for Consult: 01/06/18 09:06 Nursing Referral for Wound Care Routine Comment: Physician Instructions: Reason For Exam: eval 01/06/18 10:40 Cardiology Consult Routine Comment: Consulting Provider: Galdino Rob Consulting Physician: Galdino Rob Reason for Consult: change coumandin to something daily Hospital Course - Lab Results Lab Results: Most Recent Lab Values WBC 12.0 K/uL (4.8-10.8) H 01/20/18 05:30 RBC 3.53 Mil/uL (4.40-5.90) L 01/20/18 05:30 Hgb 11.6 g/dL (12.0-18.0) L 01/20/18 05:30 Hct 35.4 % (35.0-51.0) 01/20/18 05:30 MCV 100.4 fl (80.0-94.0) H D 01/20/18 05:30 MCH 32.9 pg (27.0-31.0) H 01/20/18 05:30 MCHC 32.8 g/dL (33.0-37.0) L 01/20/18 05:30 RDW 16.1 % (11.5-14.5) H 01/20/18 05:30 Plt Count 192 K/uL (130-400) 01/20/18 05:30 MPV 8.5 fl (7.2-11.7) 01/18/18 13:02 Neut % (Auto) 77.2 % (50.0-75.0) H 01/18/18 13:02 Lymph % (Auto) 13.6 % (20.0-40.0) L 01/18/18 13:02 Coke % (Auto) 8.1 % (0.0-10.0) 01/18/18 13:02 Eos % (Auto) 1.0 % (0.0-4.0) 01/18/18 13:02 Baso % (Auto) 0.1 % (0.0-2.0) 01/18/18 13:02 Neut # (Auto) 11.1 K/uL (1.8-7.0) H 01/18/18 13:02 Lymph # (Auto) 2.0 K/uL (1.0-4.3) 01/18/18 13:02 Coke # (Auto) 1.2 K/uL (0.0-0.8) H 01/18/18 13:02 Eos # (Auto) 0.1 K/uL (0.0-0.7) 01/18/18 13:02 Baso # (Auto) 0.0 K/uL (0.0-0.2) 01/18/18 13:02 PT 22.7 Seconds (9.8-13.1) H D 01/07/18 06:00 INR 2.0 01/07/18 06:00 Sodium 133 mmol/l (132-148) 01/20/18 05:30 Potassium 4.6 MMOL/L (3.6-5.0) 01/20/18 05:30 Chloride 101 mmol/L (98-107) 01/20/18 05:30 Carbon Dioxide 27 mmol/L (22-30) 01/20/18 05:30 Anion Gap 10 (10-20) 01/20/18 05:30 BUN 33 mg/dl (9-20) H 01/20/18 05:30 Creatinine 0.9 mg/dl (0.8-1.5) 01/20/18 05:30 Est GFR ( Amer) > 60 01/20/18 05:30 Est GFR (Non-Af Amer) > 60 01/20/18 05:30 Random Glucose 81 mg/dL (75-110) 01/20/18 05:30 Calcium 8.9 mg/dL (8.4-10.2) 01/20/18 05:30 Phosphorus 2.8 mg/dl (2.5-4.5) 01/18/18 13:02 Magnesium 1.6 MG/DL (1.6-2.3) 01/18/18 13:02 Ferritin 157.0 ng/Ml (17.9-464) 01/18/18 13:02 Total Bilirubin 1.1 mg/dl (0.2-1.3) 01/18/18 13:02 AST 23 U/L (17-59) 01/18/18 13:02 ALT 38 U/L (21-72) 01/18/18 13:02 Alkaline Phosphatase 76 U/L (38-126) 01/18/18 13:02 Total Protein 6.4 G/DL (6.3-8.2) 01/18/18 13:02 Albumin 3.0 g/dL (3.5-5.0) L 01/18/18 13:02 Globulin 3.4 gm/dL (2.2-3.9) 01/18/18 13:02 Albumin/Globulin Ratio 0.9 (1.0-2.1) L 01/18/18 13:02 TSH 3rd Generation 10.00 mIU/ML (0.46-4.68) H 01/20/18 12:03 Urine Color Yellow (YELLOW) 01/21/18 11:20 Urine Clarity Clear (Clear) 01/21/18 11:20 Urine pH 6.0 (5.0-8.0) 01/21/18 11:20 Ur Specific [place] 1.011 (1.003-1.030) 01/21/18 11:20 Urine Protein Negative mg/dL (NEGATIVE) 01/21/18 11:20 Urine Glucose (UA) Neg mg/dL (NEGATIVE) 01/21/18 11:20 Urine Ketones Negative mg/dL (NEGATIVE) 01/21/18 11:20 Urine Blood Large (NEGATIVE) 01/21/18 11:20 Urine Nitrate Negative (NEGATIVE) 01/21/18 11:20 Urine Bilirubin Negative (NEGATIVE) 01/21/18 11:20 Urine Urobilinogen 0.2-1.0 mg/dL (0.2-1.0) 01/21/18 11:20 Ur Leukocyte Esterase Neg Michael/uL (Negative) 01/21/18 11:20 Urine RBC (Auto) 78 /hpf (0-3) H 01/21/18 11:20 Urine Microscopic WBC 2 /hpf (0-5) 01/18/18 14:00 Ur Squamous Epith Cells < 1 /hpf (0-5) 01/21/18 11:20 Amorphous Sediment Rare /ul (<OCC) H 01/21/18 11:20 Urine Bacteria Rare (<OCC) 01/18/18 14:00 Hyaline Casts 0-1 /hpf (0-2) 01/18/18 14:00 Influenza Typ A,B (EIA) Negative for flu a/b (NEGATIVE) 01/06/18 20:19 Discharge Exam - Head Exam Head Exam: ATRAUMATIC, NORMOCEPHALIC Discharge Plan - Discharge Medications Prescriptions: Amoxicillin/Clavulanate [Augmentin 500 MG-125 MG Tab] 1 tab PO Q12 7 Days #14 tab Levothyroxine [Synthroid] 250 mcg PO DAILY@0630 60 Days #60 tab Rivaroxaban [Xarelto] 15 mg PO QD5 30 Days #6 tab - Follow Up Plan Condition: GOOD Disposition: HOME/ ROUTINE
[2018-01-22] MEDS ORDERED: Amoxicillin-Clav 500-125 mg Tab PO SCH (21:00)
== END 2018-01-22 15:21 | DRG 603 ==
LOC: H.TCU 18:53
PROVIDERS: ADMIT Family Medicine; ATTEND Family Medicine
PROC: F07Z9FZ Gait Training/Functional Ambulation Treatment using Assistive, Adaptive, Supportive or Protective Equipment (ICD-10-PCS; principal; 2018-01-05)
PROC: 3E03329 Introduction of Other Anti-infective into Peripheral Vein, Percutaneous Approach (ICD-10-PCS; 2018-01-05)
PROC: F08Z4FZ Home Management Treatment using Assistive, Adaptive, Supportive or Protective Equipment (ICD-10-PCS; 2018-01-05)
PROC: F07L6FZ Therapeutic Exercise Treatment of Musculoskeletal System - Lower Back / Lower Extremity using Assistive, Adaptive, Supportive or Protective Equipment (ICD-10-PCS; 2018-01-06)
PROC: 3E02340 Introduction of Influenza Vaccine into Muscle, Percutaneous Approach (ICD-10-PCS; 2018-01-19)
DX: L03.115 Cellulitis of right lower limb (principal); L97.319 Non-pressure chronic ulcer of right ankle with unspecified severity; N17.9 Acute kidney failure, unspecified; I13.0 Hypertensive heart and chronic kidney disease with heart failure and stage 1 through stage 4 chronic kidney disease, or unspecified chronic kidney disease; I87.2 Venous insufficiency (chronic) (peripheral); B96.1 Klebsiella pneumoniae [K. pneumoniae] as the cause of diseases classified elsewhere; I48.2 Chronic atrial fibrillation; E03.9 Hypothyroidism, unspecified; E86.0 Dehydration; I25.10 Atherosclerotic heart disease of native coronary artery without angina pectoris; N18.2 Chronic kidney disease, stage 2 (mild); I50.9 Heart failure, unspecified; Z23 Encounter for immunization; Z95.0 Presence of cardiac pacemaker; Z79.01 Long term (current) use of anticoagulants; Z87.891 Personal history of nicotine dependence

== ENCOUNTER 2018-03-06 13:40 | Emergency (ER) | payer MEDICARE ==
[2018-03-06 13:40] VITALS: PULSE 65; BMI 31.3
[2018-03-06 13:48] VITALS: TEMP 97.6
--- NOTE | 2018-03-06 14:19 | ED PDOC ---
Lower Extremity Pain/Injury Time Seen by Provider: 03/06/18 13:58 Chief Complaint (Nursing): Lower Extremity Problem/Injury Chief Complaint (Provider): Leg pain s/p fall History Per: Patient Additional Complaint(s): 82 yr old M with PMHx including Atrial fibrillation s/p pacemaker, CAD, Bradycardia, CHF with preserved EF, Hypothyroidism presents s/p fall down stairs. Pt reports that he uses a walker; however, when using the stairs he relies on the rail. pt notes falling down 2 steps and hurting his right leg. pt notes not being able to walk after. Pt offers no other complaints. PMHx: Atrial fibrillation s/p pacemaker, CAD, Bradycardia, CHF with preserved EF, Hypothyroidism SurgHx: pacemaker FMHx: noncontributory SocHx: denies tobacco, Etoh or drugs Medications: Warfarin 5 mg PO every other day, Vit B12, Digoxing 125 mcg PO QD, Levothyroxine 175mcg PO QD, Calcium carbonate/Vit D3, Colace , Sennosides Allergies: NKDA Past Medical History Vital Signs: Last Vital Signs Temp 97.6 F 03/06/18 13:45 Pulse 74 03/06/18 13:45 Resp 20 03/06/18 13:45 BP 126/70 03/06/18 13:45 Pulse Ox 98 03/06/18 13:45 - Medical History PMH: Atrial Fibrillation, CAD, Cardia Arrhythmia (bradycardia), CHF, HTN, Hypercholesterolemia, Hypothyroidism Denies: HIV, Chronic Kidney Disease - Surgical History Surgical History: Pacemaker, Tonsillectomy - Family History Family History: States: Unknown Family Hx - Immunization History Hx Tetanus Toxoid Vaccination: No Hx Influenza Vaccination: Yes Hx Pneumococcal Vaccination: Yes - Home Medications Home Medications: Ambulatory Orders Medication Instructions Recorded Ca/D3/Mag#11/Zinc/Stock Turner/Todd/Bor 1 tab PO BID 12/29/17 [Caltrate 600+D Plus Tablet] Cyanocobalamin (Vitamin B-12) 250 mcg PO DAILY 12/29/17 [Vitamin B-12] Digoxin [Digitek] 250 mcg PO WESA 12/29/17 Ergocalciferol (Vitamin D2) 50,000 unit PO [place] 12/29/17 [Vitamin D2] Amoxicillin/Clavulanate [Augmentin 1 tab PO Q12 7 Days #14 tab 01/22/18 500 MG-125 MG Tab] Levothyroxine [Synthroid] 250 mcg PO DAILY@0630 60 Days #60 01/22/18 tab Rivaroxaban [Xarelto] 15 mg PO DAILY 30 Days #30 tab 01/22/18 - Allergies Allergies/Adverse Reactions: Allergies Allergy/AdvReac Type Severity Reaction Status Date / Time No Known Allergies Allergy Unknown RASH Verified 01/05/18 16:45 Review of Systems ROS Statement: Except As Marked, All Systems Reviewed And Found Negative Musculoskeletal: Positive for: Leg Pain Physical Exam - Reviewed Nursing Documentation Reviewed: Yes Vital Signs Reviewed: Yes - Physical Exam Appears: Positive for: Well, Non-toxic, No Acute Distress Head Exam: Positive for: ATRAUMATIC, NORMAL INSPECTION, NORMOCEPHALIC Skin: Positive for: Normal Color, Warm, DRY Eye Exam: Positive for: EOMI, Normal appearance, PERRL ENT: Positive for: Normal ENT Inspection Neck: Positive for: Normal, Painless ROM Cardiovascular/Chest: Positive for: Regular Rate, Rhythm Respiratory: Positive for: CNT, Normal Breath Sounds Gastrointestinal/Abdominal: Positive for: Normal Exam, Soft Back: Positive for: Normal Inspection Extremity: Positive for: Normal ROM, Other (LE stasis ulceration noted to R). Negative for: Tenderness, Calf Tenderness, Deformity Neurologic/Psych: Positive for: Alert, Oriented - Laboratory Results Result Diagrams: 03/06/18 15:05 03/06/18 15:05 - ECG O2 Sat by Pulse Oximetry: 98 Medical Decision Making Medical Decision Making: Diagnostics ordered and results discussed with Pt who was seemingly upset with idea of being cleared. Pt has been calm and comfortable in bed throughout ED stay thus far, offered no complaints. Pt on re-eval reports that he now "blacked out' prior to falling. head CT ordered and case endorsed to DANI [place]. Disposition - Clinical Impression Clinical Impression: Leg pain - Patient ED Disposition Is Patient to be Admitted: Transfer of Care - Disposition Disposition: Transfer of Care Disposition Time: 20:15 Condition: STABLE Instructions: Muscle and Bone Pain (DC), Hip Pain Forms: [employer] (Slovak)
--- NOTE | 2018-03-06 15:00 | RAD ---
Date of service: 03/06/2018 PROCEDURE: CHEST RADIOGRAPH, 1 VIEW HISTORY: fall COMPARISON: Chest radiograph dated 01/04/2018. FINDINGS: LUNGS: Stable chronic prominence of the bilateral interstitial markings. No focal consolidation. PLEURA: No pneumothorax or pleural fluid seen. CARDIOVASCULAR: Left subclavian access pacemaker redemonstrated. Aortic atherosclerotic calcifications. Cardiomediastinal silhouette stably enlarged. OSSEOUS STRUCTURES: Unchanged. VISUALIZED UPPER ABDOMEN: Normal. OTHER FINDINGS: None. IMPRESSION: No active disease.
[2018-03-06 15:17] LABS: BASO # 0.1 K/uL (0.0-0.2); BASO % 1.3 % (0.0-2.0); EOS # 0.1 K/uL (0.0-0.7); EOS % 0.7 % (0.0-4.0); HEMOGLOBIN 11.9 g/dL (12.0-18.0); LYMPH # 1.4 K/uL (1.0-4.3); LYMPH % 14.8 % (20.0-40.0); MEAN CORPUSCULAR HEMOGLOBIN 32.9 pg (27.0-31.0); MEAN CORPUSCULAR HGB CONC 33.2 g/dL (33.0-37.0); MEAN PLATELET VOLUME 7.7 fl (7.2-11.7); MONO # 0.8 K/uL (0.0-0.8); MONO % 8.6 % (0.0-10.0); NEUT # 7.3 K/uL (1.8-7.0); NEUT % 74.6 % (50.0-75.0); RBC 3.63 Mil/uL (4.40-5.90); RED CELL DISTRIBUTION WIDTH 16.1 % (11.5-14.5); WHITE BLOOD COUNT 9.7 K/uL (4.8-10.8)
[2018-03-06 15:24] LABS: INR 1.8; PROTHROMBIN TIME 20.4 Seconds (9.8-13.1)
[2018-03-06 15:26] LABS: PARTIAL THROMBOPLASTIN TIME 36.7 Seconds (25.6-37.1)
[2018-03-06 15:30] LABS: ALBUMIN 3.5 g/dL (3.5-5.0); ALT/SGPT 34 U/L (21-72); AST/SGOT 35 U/L (17-59); BLOOD UREA NITROGEN 23 mg/dl (9-20); CALCIUM 9.3 mg/dL (8.4-10.2); GFR NON-AFRICAN AMERICAN 53
--- NOTE | 2018-03-06 16:43 | CT ---
Date of service: 03/06/2018 PROCEDURE: CT scan of the right lower extremity HISTORY: pain s/p fall COMPARISON: None available. TECHNIQUE: Contiguous axial images of the right lower extremity were obtained. Coronal and sagittal reformats were generated. Radiation dose: Total exam DLP = 953.99 mGy-cm. This CT exam was performed using one or more of the following dose reduction techniques: Automated exposure control, adjustment of the mA and/or kV according to patient size, and/or use of iterative reconstruction technique. FINDINGS: BONES: No fracture or focal lesion. Femoral head maintains normal contour. Right hip degenerative changes. Tricompartmental knee degenerative changes. SOFT TISSUES: Very small suprapatellar joint effusion. Distal lower extremity foot subcutaneous edema. IMPRESSION: No acute fracture. Degenerative changes.
--- NOTE | 2018-03-06 21:56 | ED PDOC ---
- Laboratory Results Result Diagrams: 03/06/18 15:05 03/06/18 15:05 Lab Results: PT 20.4 Seconds (9.8-13.1) H 03/06/18 15:05 INR 1.8 03/06/18 15:05 APTT 36.7 Seconds (25.6-37.1) 03/06/18 15:05 Total Bilirubin 1.2 mg/dl (0.2-1.3) 03/06/18 15:05 AST 35 U/L (17-59) 03/06/18 15:05 ALT 34 U/L (21-72) 03/06/18 15:05 Alkaline Phosphatase 125 U/L (38-126) 03/06/18 15:05 Total Protein 7.1 G/DL (6.3-8.2) 03/06/18 15:05 Albumin 3.5 g/dL (3.5-5.0) 03/06/18 15:05 Globulin 3.6 gm/dL (2.2-3.9) 03/06/18 15:05 Albumin/Globulin Ratio 1.0 (1.0-2.1) 03/06/18 15:05 - ECG O2 Sat by Pulse Oximetry: 98 - Progress ED Course And Treament: Case endorsed to investigative writer from Michael LOU[facility] pending CT Patient states he was walking down a flight of stairs with assistance by two family members and fell on the last step; patient thinks he may have blacked out "for half a second" after falling but states it all happened so fast. P'ing CT head EXAM: CT Head without Intravenous Contrast. CLINICAL HISTORY: Trauma with black out TECHNIQUE: Axial computed tomography images of the head/brain without intravenous contrast. 906.51 mGy-cm COMPARISON: None provided. FINDINGS: BRAIN Chronic periventricular and subcortical microvascular disease is seen. VENTRICLES: There is generalized parenchymal atrophy noted as demonstrated by symmetrical dilatation of ventricles and sulci. ORBITS: The orbits are unremarkable. SINUSES AND MASTOIDS: The paranasal sinuses and mastoid air cells are clear. BONES: No fracture. SOFT TISSUES: Unremarkable. MISCELLANEOUS: No acute intracranial pathology. IMPRESSION: 1. There is generalized parenchymal atrophy noted as demonstrated by symmetrical dilatation of ventricles and sulci. 2. Chronic periventricular and subcortical microvascular disease is seen. 3. No acute intracranial pathology Patient resting comfortably on re-eval, asking for food. Patient states he can't go home because he doesn't know how he'll get there and he doesn't have his keys Granddaughter Laura notified by Lisa Hartmann RN; will come pick patient up Advised follow up with PMD within 2-3 days Return precautions given Disposition - Clinical Impression Clinical Impression: Leg pain, Fall in elderly patient - POA Present On Arrival: None - Disposition Disposition: Routine/Home Disposition Time: 22:15 Condition: IMPROVED Instructions: Muscle and Bone Pain (DC), Hip Pain, Preventing Falls in the Older Adult Forms: [facility] (Frisian)
[2018-03-06 23:05] VITALS: BP 118/66; PULSE 70; RESP 18; O2SAT 99
--- NOTE | 2018-03-07 10:13 | CT ---
Date of service: 03/06/2018 PROCEDURE: CT HEAD WITHOUT CONTRAST. HISTORY: reports blacking out prior to fall COMPARISON: CT head dated 12/30/2017. TECHNIQUE: Axial computed tomography images were obtained through the head/brain without intravenous contrast. Radiation dose: Total exam DLP = 906.51 mGy-cm. This CT exam was performed using one or more of the following dose reduction techniques: Automated exposure control, adjustment of the mA and/or kV according to patient size, and/or use of iterative reconstruction technique. FINDINGS: HEMORRHAGE: No intracranial hemorrhage. BRAIN: No mass effect or edema. Atrophy. Chronic microvascular ischemic changes. Bilateral basal ganglia lacunar infarctions. VENTRICLES: Unremarkable. No hydrocephalus. CALVARIUM: Unremarkable. PARANASAL SINUSES: Unremarkable as visualized. No significant inflammatory changes. MASTOID AIR CELLS: Unremarkable as visualized. No inflammatory changes. OTHER FINDINGS: None. IMPRESSION: No acute intracranial pathology. Age-related changes. No significant interval change.
--- NOTE | 2018-03-08 | CARD ---
APPROVED REPORT Date of service: 03/06/2018 EKG Measurement Heart [id number] <Conclusion> Ventricular-paced rhythm Abnormal ECG
== END 2018-03-06 22:55 | disposition home or self-care (01) ==
LOC: H.ER 13:40
DX: M79.604 Pain in right leg (principal); W10.9XXA Fall (on) (from) unspecified stairs and steps, initial encounter; Y92.89 Other specified places as the place of occurrence of the external cause; E03.9 Hypothyroidism, unspecified; E78.00 Pure hypercholesterolemia, unspecified; I11.0 Hypertensive heart disease with heart failure; I25.10 Atherosclerotic heart disease of native coronary artery without angina pectoris; I48.91 Unspecified atrial fibrillation; I50.9 Heart failure, unspecified; Z95.0 Presence of cardiac pacemaker

== ENCOUNTER 2018-05-05 21:50 | Inpatient (IN) | payer MEDICARE ==
[2018-05-05 21:50] VITALS: BMI 31.3
[2018-05-06 00:10] LABS: BASO # 0.1 K/uL (0.0-0.2); BASO % 0.4 % (0.0-2.0); HEMOGLOBIN 12.8 g/dL (12.0-18.0); LYMPH # 1.3 K/uL (1.0-4.3); LYMPH % 6.3 % (20.0-40.0); MEAN CELL VOLUME 95.7 fl (80.0-94.0); MEAN CORPUSCULAR HEMOGLOBIN 31.1 pg (27.0-31.0); MEAN CORPUSCULAR HGB CONC 32.5 g/dL (33.0-37.0); MEAN PLATELET VOLUME 8.9 fl (7.2-11.7); MONO # 1.4 K/uL (0.0-0.8); MONO % 6.8 % (0.0-10.0); NEUT % 86.5 % (50.0-75.0); PLATELET COUNT 272 K/uL (130-400); RBC 4.12 Mil/uL (4.40-5.90); RED CELL DISTRIBUTION WIDTH 14.3 % (11.5-14.5); WHITE BLOOD COUNT 20.9 K/uL (4.8-10.8)
--- NOTE | 2018-05-06 00:11 | ED PDOC ---
Syncope/Near Syncope/Dizziness Time Seen by Provider: 05/05/18 22:01 Chief Complaint (Nursing): Syncope Chief Complaint (Provider): Syncope History Per: Patient History/Exam Limitations: no limitations Number Of Syncopal Episodes: 1 Additional Complaint(s): 82 y/o male with history of AFib with pacemaker, CAD, CHF, hypothyroidism who presents to the ED with syncopal episode today. Patient states he doesn't remember what happened but thinks that he passed out. The only thing he remembers is waking up on the floor and is complaining of bilateral elbow pain and headache. Patient's granddaughter states that patient is falling with increased frequency recently and that he lives alone and is a danger by himself. Devendra chest pain or shortness of breath. Past Medical History Reviewed: Historical Data, Nursing Documentation, Vital Signs Vital Signs: Last Vital Signs Temp 97.8 F 05/05/18 21:51 Pulse 63 05/06/18 00:06 Resp 17 05/06/18 00:06 BP 130/77 05/06/18 00:06 Pulse Ox 96 05/06/18 00:06 - Medical History PMH: Atrial Fibrillation, CAD, Cardia Arrhythmia (bradycardia), CHF, HTN, Hypercholesterolemia, Hypothyroidism Denies: HIV, Chronic Kidney Disease - Surgical History Surgical History: Pacemaker, Tonsillectomy - Family History Family History: States: Unknown Family Hx - Immunization History Hx Tetanus Toxoid Vaccination: No Hx Influenza Vaccination: Yes Hx Pneumococcal Vaccination: Yes - Home Medications Home Medications: Ambulatory Orders Medication Instructions Recorded Ca/D3/Mag#11/Zinc/Software Consultant/Todd/Bor 1 tab PO BID 12/29/17 [Caltrate 600+D Plus Tablet] Cyanocobalamin (Vitamin B-12) 250 mcg PO DAILY 12/29/17 [Vitamin B-12] Digoxin [Digitek] 250 mcg PO WESA 12/29/17 Ergocalciferol (Vitamin D2) 50,000 unit PO MO 12/29/17 [Vitamin D2] Levothyroxine [Synthroid] 250 mcg PO DAILY@0630 60 Days #60 01/22/18 tab Rivaroxaban [Xarelto] 15 mg PO DAILY 30 Days #30 tab 01/22/18 - Allergies Allergies/Adverse Reactions: Allergies Allergy/AdvReac Type Severity Reaction Status Date / Time No Known Allergies Allergy Unknown RASH Verified 01/05/18 16:45 Review of Systems ROS Statement: Except As Marked, All Systems Reviewed And Found Negative Cardiovascular: Negative for: Chest Pain Respiratory: Negative for: Shortness of Breath Musculoskeletal: Positive for: Arm Pain (bilateral elbow) Neurological: Positive for: Headache Physical Exam - Reviewed Nursing Documentation Reviewed: Yes Vital Signs Reviewed: Yes - Physical Exam Appears: Positive for: Well, Non-toxic, No Acute Distress Head Exam: Positive for: ATRAUMATIC, NORMAL INSPECTION, NORMOCEPHALIC Skin: Positive for: Normal Color, Warm, DRY Eye Exam: Positive for: EOMI, Normal appearance, PERRL ENT: Positive for: Normal ENT Inspection Neck: Positive for: Normal, Painless ROM Cardiovascular/Chest: Positive for: Regular Rate, Rhythm. Negative for: Murmur Respiratory: Positive for: Normal Breath Sounds. Negative for: Respiratory Distress Gastrointestinal/Abdominal: Positive for: Normal Exam, Soft. Negative for: Tenderness Extremity: Positive for: Normal ROM, Tenderness (right femur ), Other (abrasions to elbows bilaterally with various healing stage; no hip laxity). 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 Negative for: Motor/Sensory Deficits, Facial Droop, Other (focal weakness) - Laboratory Results Result Diagrams: 05/06/18 00:05 05/06/18 00:05 - ECG O2 Sat by Pulse Oximetry: 96 (RA) Pulse Ox Interpretation: Normal Medical Decision Making Medical Decision Making: Time: 22:16 A/P: 82 y/o with extensive medical history with syncopal episode. Will investigate for cardiac cause. Patient is a danger to himself and home. Given increasing frequency of falls will obtain and will also require continuous cardiac monitoring in telemetry unit. * CT C Spine * CT Head * CT Pelvis * RAD - right femur * RAD right hip 00:07 Patient admitted to telemetry unit under Dr. Dueñas for further monitoring. 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 No evidence for acute intracranial hemorrhage. No midline shift or mass effect identified. VENTRICLES: There is moderate prominence of ventricles and sulci compatible with moderate atrophy. ORBITS: The orbits are unremarkable. SINUSES AND MASTOIDS: The paranasal sinuses and mastoid air cells are clear. BONES: No evidence for displaced calvarial fracture. SOFT TISSUES: Unremarkable. MISCELLANEOUS: No evidence for acute territorial infarction. There is little interval change overall in comparison with March 06, 2018 study. IMPRESSION: 1. There is moderate prominence of ventricles and sulci compatible with moderate atrophy. 2. 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 3. No CT evidence for acute intracranial abnormality. 4. There is little interval change overall in comparison with March 06, 2018 study. 00:24 CT CSpine FINDINGS: ALIGNMENT: There is reversal of the normal cervical lordosis. No evidence for acute fracture or subluxation is identified. DEGENERATIVE CHANGES: There are moderately severe multilevel degenerative spine changes in the cervical spine. SOFT TISSUES: No focal prevertebral soft tissue swelling. BONES: No acute fracture or aggressive appearing osseous lesion. IMPRESSION: 1. There is reversal of the normal cervical lordosis. 2. There are moderately severe multilevel degenerative spine changes in the cervical spine. 3. No evidence for acute fracture or subluxation is identified. 00:25 CT Hip FINDINGS: HIP JOINTS: Focused images acquired of the left hip. No dislocation. The joint spaces are normal. BONES: No evidence for acute fracture or subluxation in the pelvis. Moderately severe atherosclerotic calcification is present in the visualized distal abdominal aorta and branches. Mild ectasia of the distal aorta without scooby aneurysm. 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 The left measures 1.9 cm in diameter and the right measures 2.0 cm in diameter. There also aneurysmal dilatation of both internal iliac arteries. SOFT TISSUES: The pelvic viscera are unremarkable. No fluid collection, hematoma or mass. No radiopaque foreign body or soft tissue gas. MISCELLANEOUS: There is fecal impaction at the rectum measuring 7.7 x 7.6 cm on series 3, image 72. There is trabeculation and thickening of the bladder wall. The most likely etiology is chronic outflow obstruction although infectious, inflammatory neoplastic conditions can also have this appearance. Please correlate clinically and if indicated this could be further evaluated with cystoscopy. The prostate is enlarged measuring 4.8 cm transverse. There is a partially visualized inferior vena cava filter. Overall, there is no acute change in comparison with August 04, 2017 IMPRESSION: 1. There is fecal impaction at the rectum measuring 7.7 x 7.6 cm on series 3, image 72. 2. No evidence for acute fracture or subluxation in the pelvis. 3. There is trabeculation and thickening of the bladder wall. The most likely etiology is chronic outflow obstruction although infectious, inflammatory neoplastic conditions can also have this appearance. Please correlate clinically and if indicated this could be further evaluated with cystoscopy. 4. The prostate is enlarged measuring 4.8 cm transverse. 5. Moderately severe atherosclerotic calcification is present in the visualized distal abdominal aorta and branches. Mild ectasia of the distal aorta without scooby aneurysm. 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 The left measures 1.9 cm in diameter and the right measures 2.0 cm in diameter. There also aneurysmal dilatation of both internal iliac arteries. 6. There is a partially visualized inferior vena cava filter. 7. Overall, there is no acute change in comparison with August 04, 2017 [address] Case discussed with Dr. Carrillo who agrees to OBS tele for syncope 0200 Patient has elevated WBC count and UTI Blood and urine cultures collected Patient remains afebrile with normal vitals Will treat with ceftriaxone Will give 250cc's/hr NS and watch for fluid overload given CHF -- Scribe Attestation: Documented by Joe Rubi, acting as a scribe for Kali Crespo MD Provider Scribe Attestation: All medical record entries made by the Scribe were at my direction and personally dictated by me. I have reviewed the chart and agree that the record accurately reflects my personal performance of the history, physical exam, medical decision making, and the department course for this patient. I have also personally directed, reviewed, and agree with the discharge instructions and d isposition. Disposition - Clinical Impression Clinical Impression: Syncope, UTI (urinary tract infection) - Patient ED Disposition Is Patient to be Admitted: Yes Counseled Patient/Family Regarding: Studies Performed, Diagnosis - Disposition Disposition Time: 00:07 Condition: FAIR
[2018-05-06 00:13] LABS: INR 2.1; PROTHROMBIN TIME 23.5 Seconds (9.8-13.1)
[2018-05-06 00:15] LABS: PARTIAL THROMBOPLASTIN TIME 35.4 Seconds (25.6-37.1)
[2018-05-06 00:17] LABS: ALBUMIN 3.6 g/dL (3.5-5.0); ALT/SGPT 32 U/L (21-72); AST/SGOT 43 U/L (17-59); BLOOD UREA NITROGEN 32 mg/dl (9-20); CALCIUM 10.5 mg/dL (8.4-10.2); GFR NON-AFRICAN AMERICAN 58
[2018-05-06 00:41] LABS: SQUAMOUS EPITHIAL 1 /hpf (0-5); URINE BACTERIA MOD (<OCC); URINE BILIRUBIN NEGATIVE (NEGATIVE); URINE BLOOD MODERATE (NEGATIVE); URINE CLARITY CLOUDY (Clear); URINE COLOR YELLOW (YELLOW); URINE GLUCOSE (UA) NEG (NEGATIVE); URINE LEUKOCYTE ESTERASE LARGE Leu/uL (Negative); URINE PROTEIN 30 mg/dL (NEGATIVE); URINE UROBILINOGEN 0.2-1.0 mg/dL (0.2-1.0)
[2018-05-06 00:51] LABS: BARBITURATES, UR NEGATIVE (NEGATIVE); BENZODIAZEPINES, UR NEGATIVE (NEGATIVE); OPIATES, UR NEGATIVE (NEGATIVE); PHENCYCLIDINE, UR NEGATIVE (NEGATIVE)
[2018-05-06 01:18] LABS: BANDS 3 % (0-2); LYMPHOCYTE 7 % (20-50); NEUTROPHIL 82 % (42-75); PLATELET ESTIMATE NORMAL (NORMAL); TOTAL CELLS COUNTED 100
[2018-05-06 01:19] LABS: MONOCYTE 8 % (0-10)
[2018-05-06] MEDS ORDERED: cefTRIAXone 2 GM in Sodium Chloride 0.9% 100 ML IVPB STA (02:57)
[2018-05-06] MEDS ORDERED: Sodium Chloride 0.9% 1,000 ML IV STA (03:02)
[2018-05-06 05:39] LABS: VENOUS BLOOD GAS BASE EXCESS 6.8 mmol/L (0.0-2.0); VENOUS BLOOD GAS PCO2 57 mmHg (40-60); VENOUS BLOOD GAS PO2 17 mm/Hg (30-55); VENOUS BLOOD PH 7.38 (7.32-7.43)
[2018-05-06 06:52] LABS: BASO # 0.1 K/uL (0.0-0.2); BASO % 0.4 % (0.0-2.0); EOS % 0.3 % (0.0-4.0); HEMOGLOBIN 12.9 g/dL (12.0-18.0); MEAN CELL VOLUME 95.5 fl (80.0-94.0); MEAN CORPUSCULAR HEMOGLOBIN 31.3 pg (27.0-31.0); MEAN CORPUSCULAR HGB CONC 32.8 g/dL (33.0-37.0); MEAN PLATELET VOLUME 8.3 fl (7.2-11.7); MONO # 1.1 K/uL (0.0-0.8); MONO % 7.2 % (0.0-10.0); NEUT # 13.8 K/uL (1.8-7.0); NEUT % 86.1 % (50.0-75.0); RBC 4.12 Mil/uL (4.40-5.90); RED CELL DISTRIBUTION WIDTH 14.2 % (11.5-14.5); WHITE BLOOD COUNT 16.1 K/uL (4.8-10.8)
--- NOTE | 2018-05-06 07:58 | RAD ---
Date of service: 05/05/2018 PROCEDURE: HISTORY: fall COMPARISON: None TECHNIQUE: Four views FINDINGS: Bone mineralization within normal limits. Superolateral and inferomedial right hip joint space narrowing mild acetabular spurring suggested. Cortical osseous hypertrophy superior femoral neck-a femoral acetabular impingement morphology is 1 consideration-a chronic condition. Tricompartmental advanced osteoarthrosis-knee level with loose bodies likely. Extensive Atherosclerotic vascular calcifications present. IMPRESSION: No fracture or lytic lesion is seen. Advanced osteoarthrosis--as detailed above. Other findings as above.
--- NOTE | 2018-05-06 08:06 | RAD ---
Date of service: 05/05/2018 PROCEDURE: HISTORY: fall COMPARISON: None TECHNIQUE: Three views FINDINGS: Diffuse spurring present particularly prominent are posterior olecranon spurring-triceps enthesophyte formation and a medial and lateral humeral epicondylar exostosis/tug spur suggested No fractures appreciated. The lateral view is not a true lateral view is oblique--this limits optimal evaluation for any elbow joint effusion. No large effusion can be appreciated given the images. Extensive Atherosclerotic vascular calcifications present. No fracture or dislocation appreciated. IMPRESSION: No gross fracture or dislocation seen. Limited lateral view-impeding optimal assessment for any small effusions. Osteoarthritic diffuse spurring-as referenced above. Prominent triceps insertional enthesophyte-olecranon spur. Other findings as above.
--- NOTE | 2018-05-06 09:07 | RAD ---
Date of service: 05/05/2018 PROCEDURE: CHEST RADIOGRAPH, 1 VIEW HISTORY: fall COMPARISON: 03/06/2018 FINDINGS: LUNGS: No consolidation. Trace coalescent discoid atelectatic changes left lung base suggested-an interval change. Pulmonary venous congestion increased since prior exam. PLEURA: No pneumothorax. Minimal left pleural effusion probable. CARDIOVASCULAR: There is presence of aortic atherosclerotic calcification on x-ray. Cardiomegaly-similar Pulmonary venous congestion suggested-increased since prior exam. Single lead pacemaker in place-position appears satisfactory.-as before OSSEOUS STRUCTURES: Bilateral shoulder arthrosis. Trace asymmetrical sclerosis right scapula inferior to coracoid-similar with a 01/04/2018 chest x-ray as well. No suspect fractures or lytic lesions noted. Thoracic spondylosis. VISUALIZED UPPER ABDOMEN: Normal. OTHER FINDINGS: None. IMPRESSION: Interval increased pulmonary venous congestion. Interval increase conspicuity and/or interval increased size of a currently still small left pleural effusion. Regional subsegmental coalescent atelectatic changes here inferred. Cardiomegaly-as before. Other findings as above.
--- NOTE | 2018-05-06 10:35 | CARD ---
APPROVED REPORT Date of service: 05/05/2018 EKG Measurement Heart [id number] <Conclusion> Ventricular-paced rhythm Abnormal ECG
--- NOTE | 2018-05-06 12:02 | CT ---
Date of service: 05/05/2018 PROCEDURE: CT HEAD WITHOUT CONTRAST. HISTORY: fall COMPARISON: 03/06/2018. CT head TECHNIQUE: Axial computed tomography images were obtained through the head/brain without intravenous contrast. Supplemental Coronal and Sagittal projections created and reviewed. Radiation dose: Total exam DLP = 899.05 mGy-cm. This CT exam was performed using one or more of the following dose reduction techniques: Automated exposure control, adjustment of the mA and/or kV according to patient size, and/or use of iterative reconstruction technique. FINDINGS: HEMORRHAGE: No intracranial hemorrhage. BRAIN: No mass effect or edema. Cortical and cerebellar atrophy, periventricular small vessel disease. VENTRICLES: Unremarkable. No hydrocephalus. CALVARIUM: Unremarkable. PARANASAL SINUSES: Unremarkable as visualized. No significant inflammatory changes. MASTOID AIR CELLS: Unremarkable as visualized. No inflammatory changes. OTHER FINDINGS: None. IMPRESSION: No acute or significant findings related to/ accounting for the clinical presentation. Additional benign and/or incidental findings described above. No significant interval change compared to the prior examination(s). Concordant results (preliminary interpretation) provided by Keelr. Procedure Completed: 22:56. Preliminary Report: Interpreted and electronically signed: 00:24. Final Interpretation: 11:58.
--- NOTE | 2018-05-06 13:02 | CT ---
Date of service: 05/05/2018 PROCEDURE: CT Cervical Spine without contrast HISTORY: fall COMPARISON: None available. TECHNIQUE: Axial computed tomography images were obtained of the cervical spine without the use of intravenous contrast. Coronal and sagittal reformatted images were created and reviewed. Radiation dose: Total exam DLP = 345.67 mGy-cm. This CT exam was performed using one or more of the following dose reduction techniques: Automated exposure control, adjustment of the mA and/or kV according to patient size, and/or use of iterative reconstruction technique. FINDINGS: VERTEBRAE: No fracture. Normal alignment. No destructive bony lesion. DISCS/SPINAL CANAL/NEURAL FORAMINA: Multilevel severe degenerative disc disease and spondylosis. PARASPINAL SOFT TISSUES: Unremarkable. OTHER FINDINGS: None. IMPRESSION: No acute fracture.
--- NOTE | 2018-05-06 13:11 | CT ---
Date of service: 05/05/2018 PROCEDURE: HISTORY: fall COMPARISON: TECHNIQUE: FINDINGS: Diffuse bladder wall thickening; correlate clinically for outlet structures. Prostate enlargement. No pelvic lymphadenopathy, mass or ascites. Extensive vascular calcifications. No acute fracture or dislocation. Fecal impaction with abundant stool in the rectum. IMPRESSION: No fracture.
--- NOTE | 2018-05-06 17:12 | CP.PCM.HP ---
History of Present Illness - History of Present Illness History of Present Illness: 82 year old male with history of AFib with pacemaker, CAD, CHF, hypothyroidism who presented to the ED with syncopal episode. Patient does not recall episode. Patient's granddaughter stated in ED that patient has been falling with incr eased frequency recently. Patient was seen and evaluated in ED, multiple imaging studies and labs were completed. Of note patient had WBC elevated though normal vitals. Patient was seen and examined at bedside today. Does complain of dysuria though denies chest pain, dizziness, headaches. PMHx: Atrial fibrillation s/p pacemaker, CAD, Bradycardia, CHF with preserved EF, Hypothyroidism SurgHx: pacemaker FMHx: noncontributory Medications: as per chart Allergies: NKDA Present on Admission - Present on Admission Any Indicators Present on Admission: No Review of Systems - Review of Systems All systems: reviewed and no additional remarkable complaints except (mentioned above) Past Patient History - Past Medical History & Family History Past Medical History?: Yes - Past Social History Smoking Status: Former Smoker - CARDIAC Hx Atrial Fibrillation: Yes Hx Cardia Arrhythmia: Yes (bradycardia) Hx Congestive Heart Failure: Yes Hx Hypercholesterolemia: Yes Hx Hypertension: Yes Hx Pacemaker: Yes - PULMONARY Hx Respiratory Disorders: No - NEUROLOGICAL Hx Neurological Disorder: No - HEENT Hx HEENT Problems: No - RENAL Hx Chronic Kidney Disease: No - ENDOCRINE/METABOLIC Hx Endocrine Disorders: Yes Hx Hypothyroidism: Yes - HEMATOLOGICAL/ONCOLOGICAL Hx Blood Disorders: No Hx AIDS: No Hx Human Immunodeficiency Virus (HIV): No - INTEGUMENTARY Hx Dermatological Problems: No Hx Cellulitis: Yes - MUSCULOSKELETAL/RHEUMATOLOGICAL Hx Musculoskeletal Disorders: Yes Hx Falls: Yes - GASTROINTESTINAL Hx Gastrointestinal Disorders: No - GENITOURINARY/GYNECOLOGICAL Hx Genitourinary Disorders: No - PSYCHIATRIC Hx Psychophysiologic Disorder: No Hx Emotional Abuse: No Hx Physical Abuse: No Hx Substance Use: No - SURGICAL HISTORY Hx Tonsillectomy: Yes - ANESTHESIA Hx Anesthesia: Yes Hx Anesthesia Reactions: No Hx Malignant Hyperthermia: No Meds Allergies/Adverse Reactions: Allergies Allergy/AdvReac Type Severity Reaction Status Date / Time No Known Allergies Allergy Unknown RASH Verified 01/05/18 16:45 Physical Exam - Constitutional Appears: Non-toxic, No Acute Distress - Head Exam Head Exam: NORMAL INSPECTION - Eye Exam Eye Exam: Normal appearance - Respiratory Exam Respiratory Exam: NORMAL BREATHING PATTERN - Cardiovascular Exam Cardiovascular Exam: +S1, +S2 - GI/Abdominal Exam GI & Abdominal Exam: Soft - Neurological Exam Neurological exam: Alert, Oriented x3 - Psychiatric Exam Psychiatric exam: Normal Affect, Normal Mood - Skin Skin Exam: Normal Color, Warm Results - Vital Signs Recent Vital Signs: Last Vital Signs Temp 98.4 F 05/06/18 16:17 Pulse 62 05/06/18 16:17 Resp 18 05/06/18 16:17 BP 125/80 05/06/18 16:17 Pulse Ox 98 05/06/18 16:17 - Labs Result Diagrams: 05/06/18 06:30 05/06/18 00:05 Labs: Laboratory Results - last 24 hr 05/06/18 05/06/18 05/06/18 00:05 00:05 00:05 WBC 20.9 H D RBC 4.12 L Hgb 12.8 Hct 39.5 MCV 95.7 H D MCH 31.1 H MCHC 32.5 L RDW 14.3 Plt Count 272 MPV 8.9 Neut % (Auto) 86.5 H Lymph % (Auto) 6.[address] [place] % (Auto) 6.8 Eos % (Auto) 0.0 Baso % (Auto) 0.4 Neut # (Auto) 18.0 H Lymph # (Auto) 1.3 [place] # (Auto) 1.4 H Eos # (Auto) 0.0 Baso # (Auto) 0.1 Neutrophils % (Manual) 82 H Band Neutrophils % 3 H Lymphocytes % (Manual) 7 L Monocytes % (Manual) 8 Platelet Estimate Normal RBC Morphology Normal PT 23.5 H INR 2.1 APTT 35.4 pO2 VBG pH VBG pCO2 VBG HCO3 VBG Total CO2 VBG O2 Sat (Calc) VBG Base Excess VBG Potassium Glucose Lactate FiO2 Sodium 137 Potassium 4.7 Chloride 100 Carbon Dioxide 28 Anion Gap 14 BUN 32 H Creatinine 1.2 Est GFR ( Amer) > 60 Est GFR (Non-Af Amer) 58 Random Glucose 107 Calcium 10.5 H Total Bilirubin 0.9 AST 43 ALT 32 Alkaline Phosphatase 100 Troponin I 0.0630 Total Protein 7.3 Albumin 3.6 Globulin 3.7 Albumin/Globulin Ratio 1.0 Venous Blood Potassium Urine Color Urine Clarity Urine pH Ur Specific [place] Urine Protein Urine Glucose (UA) Urine Ketones Urine Blood Urine Nitrate Urine Bilirubin Urine Urobilinogen Ur Leukocyte Esterase Urine RBC (Auto) Urine Microscopic WBC Ur Squamous Epith Cells Urine Bacteria Urine Opiates Screen Urine Methadone Screen Ur Barbiturates Screen Ur Phencyclidine Scrn Ur Amphetamines Screen U Benzodiazepines Scrn U Oth Cocaine Metabols U Cannabinoids Screen Alcohol, Quantitative < 10 05/06/18 05/06/18 05/06/18 00:30 00:30 05:26 WBC RBC Hgb Hct MCV MCH MCHC RDW Plt Count MPV Neut % (Auto) Lymph % (Auto) [place] % (Auto) Eos % (Auto) Baso % (Auto) Neut # (Auto) Lymph # (Auto) [place] # (Auto) Eos # (Auto) Baso # (Auto) Neutrophils % (Manual) Band Neutrophils % Lymphocytes % (Manual) Monocytes % (Manual) Platelet Estimate RBC Morphology PT INR APTT pO2 17 L VBG pH 7.38 VBG pCO2 57 VBG HCO3 28.2 VBG Total CO2 35.4 H VBG O2 Sat (Calc) 25.3 L VBG Base Excess 6.8 H VBG Potassium 5.0 Glucose 96 Lactate 1.8 FiO2 21.0 Sodium 136.0 Potassium Chloride 103.0 Carbon Dioxide Anion Gap BUN Creatinine Est GFR ( Amer) Est GFR (Non-Af Amer) Random Glucose Calcium Total Bilirubin AST ALT Alkaline Phosphatase Troponin I Total Protein Albumin Globulin Albumin/Globulin Ratio Venous Blood Potassium 5.0 Urine Color Yellow Urine Clarity Cloudy Urine pH 6.0 Ur Specific [place] 1.014 Urine Protein 30 Urine Glucose (UA) Neg Urine Ketones Negative Urine Blood Moderate Urine Nitrate Positive H Urine Bilirubin Negative Urine Urobilinogen 0.2-1.0 Ur Leukocyte Esterase Large Urine RBC (Auto) 8 H Urine Microscopic WBC 279 H Ur Squamous Epith Cells 1 Urine Bacteria Mod H Urine Opiates Screen Negative Urine Methadone Screen Negative Ur Barbiturates Screen Negative Ur Phencyclidine Scrn Negative Ur Amphetamines Screen Negative U Benzodiazepines Scrn Negative U Oth Cocaine Metabols Negative U Cannabinoids Screen Negative Alcohol, Quantitative 05/06/18 06:30 WBC 16.1 H RBC 4.12 L Hgb 12.9 Hct 39.3 MCV 95.5 H MCH 31.3 H MCHC 32.8 L RDW 14.2 Plt Count 229 MPV 8.3 Neut % (Auto) 86.1 H Lymph % (Auto) 6.[address] [place] % (Auto) 7.2 Eos % (Auto) 0.3 Baso % (Auto) 0.4 Neut # (Auto) 13.8 H Lymph # (Auto) 1.0 [place] # (Auto) 1.1 H Eos # (Auto) 0.0 Baso # (Auto) 0.1 Neutrophils % (Manual) Band Neutrophils % Lymphocytes % (Manual) Monocytes % (Manual) Platelet Estimate RBC Morphology PT INR APTT pO2 VBG pH VBG pCO2 VBG HCO3 VBG Total CO2 VBG O2 Sat (Calc) VBG Base Excess VBG Potassium Glucose Lactate FiO2 Sodium Potassium Chloride Carbon Dioxide Anion Gap BUN Creatinine Est GFR ( Amer) Est GFR (Non-Af Amer) Random Glucose Calcium Total Bilirubin AST ALT Alkaline Phosphatase Troponin I Total Protein Albumin Globulin Albumin/Globulin Ratio Venous Blood Potassium Urine Color Urine Clarity Urine pH Ur Specific [place] Urine Protein Urine Glucose (UA) Urine Ketones Urine Blood Urine Nitrate Urine Bilirubin Urine Urobilinogen Ur Leukocyte Esterase Urine RBC (Auto) Urine Microscopic WBC Ur Squamous Epith Cells Urine Bacteria Urine Opiates Screen Urine Methadone Screen Ur Barbiturates Screen Ur Phencyclidine Scrn Ur Amphetamines Screen U Benzodiazepines Scrn U Oth Cocaine Metabols U Cannabinoids Screen Alcohol, Quantitative Assessment & Plan (1) Syncope Status: Acute (2) UTI (urinary tract infection) Status: Acute - Assessment and Plan (Free Text) Plan: available diagnostic data reviewed monitor vitals monitor labs c/w meds as prescribed IV abx consult neurology consult cardiology obtain echo obtain renal u/s rest of plan as ordered
[2018-05-06] MEDS: Multivitamin With Minerals Tab PO SCH (17:17)
--- NOTE | 2018-05-06 18:53 | US ---
Date of service: 05/06/2018 PROCEDURE: Ultrasound of the Kidneys HISTORY: r/o pyelo COMPARISON: None available. TECHNIQUE: Sonogram of the kidneys. FINDINGS: RIGHT KIDNEY: Measures: 5.1 x 11.1 cm. Normal in size, contour and echogenicity. Mild fullness of the collecting system identified. No stone, solid mass lesion visualized. LEFT KIDNEY: Measures: 4.7 x 10.5 cm. Normal in size, contour and echogenicity. Moderate fullness of the left collecting system and moderate ureteropelvic dilatation. No stone, solid mass lesion visualized. OTHER FINDINGS: Urinary bladder assessment: Prevoid volume: 956.5 ml Postvoid residual: 638.1 ml Intrinsic, mural, perivesical abnormalities: Layering of debris in the bladder noted. Ureteral jets: Not visible bilaterally IMPRESSION: Hydronephrosis bilaterally left greater than right. Large capacitance urinary bladder. Large postvoid residual. Debris in the bladder noted without focal abnormality.
--- NOTE | 2018-05-06 19:10 | CP.PCM.CON ---
History of Present Illness - History of Present Illness History of Present Illness: Neurology consult dictated. Patient with cardiogenic syncope. PLan; 1. Carotid dopplers our team will follow dr. slaughter Neurology Past Patient History - Past Medical History & Family History Past Medical History?: Yes - Past Social History Smoking Status: Former Smoker - CARDIAC Hx Atrial Fibrillation: Yes Hx Cardia Arrhythmia: Yes (bradycardia) Hx Congestive Heart Failure: Yes Hx Hypercholesterolemia: Yes Hx Hypertension: Yes Hx Pacemaker: Yes - PULMONARY Hx Respiratory Disorders: No - NEUROLOGICAL Hx Neurological Disorder: No - HEENT Hx HEENT Problems: No - RENAL Hx Chronic Kidney Disease: No - ENDOCRINE/METABOLIC Hx Endocrine Disorders: Yes Hx Hypothyroidism: Yes - HEMATOLOGICAL/ONCOLOGICAL Hx Blood Disorders: No Hx AIDS: No Hx Human Immunodeficiency Virus (HIV): No - INTEGUMENTARY Hx Dermatological Problems: No Hx Cellulitis: Yes - MUSCULOSKELETAL/RHEUMATOLOGICAL Hx Musculoskeletal Disorders: Yes Hx Falls: Yes - GASTROINTESTINAL Hx Gastrointestinal Disorders: No - GENITOURINARY/GYNECOLOGICAL Hx Genitourinary Disorders: No - PSYCHIATRIC Hx Psychophysiologic Disorder: No Hx Emotional Abuse: No Hx Physical Abuse: No Hx Substance Use: No - SURGICAL HISTORY Hx Tonsillectomy: Yes - ANESTHESIA Hx Anesthesia: Yes Hx Anesthesia Reactions: No Hx Malignant Hyperthermia: No Meds Allergies/Adverse Reactions: Allergies Allergy/AdvReac Type Severity Reaction Status Date / Time No Known Allergies Allergy Unknown RASH Verified 01/05/18 16:45 - Medications Medications: Current Medications Cyanocobalamin (Vitamin B-12) 250 mcg PO DAILY [facility] Digoxin (Digoxin) 0.125 mg PO TUTH [facility] Digoxin (Digoxin) 0.125 mg PO FRI [facility] Digoxin (Digoxin) 0.125 mg PO SUN [facility] Digoxin (Lanoxin) 0.25 mg PO WED [facility] Digoxin (Lanoxin) 0.25 mg PO SAT [facility] Digoxin (Digoxin) 0.125 mg PO MON [facility] Ergocalciferol (Drisdol 50,000 Intl Units Cap) 1 cap PO MO [facility] Ceftriaxone Sodium 1 gm/ (Sodium Chloride) 100 mls @ 100 mls/hr IVPB DAILY [facility]; Protocol Levothyroxine Sodium (Synthroid) 250 mcg PO DAILY@0630 [facility] Multivitamins/Minerals (Therapeutic-M Tab) 1 tab PO DAILY [facility] Last Admin: 05/06/18 17:17 Dose: 1 tab Rivaroxaban (Xarelto) 15 mg PO DAILY [facility]; Protocol Results - Vital Signs Recent Vital Signs: Last Vital Signs Temp 98.4 F 05/06/18 16:17 Pulse 62 05/06/18 16:17 Resp 18 05/06/18 16:17 BP 125/80 05/06/18 16:17 Pulse Ox 98 05/06/18 16:17 - Labs Result Diagrams: 05/06/18 06:30 05/06/18 00:05 Labs: Laboratory Results - last 24 hr 05/06/18 05/06/18 05/06/18 00:05 00:05 00:05 WBC 20.9 H D RBC 4.12 L Hgb 12.8 Hct 39.5 MCV 95.7 H D MCH 31.1 H MCHC 32.5 L RDW 14.3 Plt Count 272 MPV 8.9 Neut % (Auto) 86.5 H Lymph % (Auto) 6.3 L Hart % (Auto) 6.8 Eos % (Auto) 0.0 Baso % (Auto) 0.4 Neut # (Auto) 18.0 H Lymph # (Auto) 1.3 Hart # (Auto) 1.4 H Eos # (Auto) 0.0 Baso # (Auto) 0.1 Neutrophils % (Manual) 82 H Band Neutrophils % 3 H Lymphocytes % (Manual) 7 L Monocytes % (Manual) 8 Platelet Estimate Normal RBC Morphology Normal PT 23.5 H INR 2.1 APTT 35.4 pO2 VBG pH VBG pCO2 VBG HCO3 VBG Total CO2 VBG O2 Sat (Calc) VBG Base Excess VBG Potassium Glucose Lactate FiO2 Sodium 137 Potassium 4.7 Chloride 100 Carbon Dioxide 28 Anion Gap 14 BUN 32 H Creatinine 1.2 Est GFR ( Amer) > 60 Est GFR (Non-Af Amer) 58 Random Glucose 107 Calcium 10.5 H Total Bilirubin 0.9 AST 43 ALT 32 Alkaline Phosphatase 100 Troponin I 0.0630 Total Protein 7.3 Albumin 3.6 Globulin 3.7 Albumin/Globulin Ratio 1.0 Venous Blood Potassium Urine Color Urine Clarity Urine pH Ur Specific [place] Urine Protein Urine Glucose (UA) Urine Ketones Urine Blood Urine Nitrate Urine Bilirubin Urine Urobilinogen Ur Leukocyte Esterase Urine RBC (Auto) Urine Microscopic WBC Ur Squamous Epith Cells Urine Bacteria Urine Opiates Screen Urine Methadone Screen Ur Barbiturates Screen Ur Phencyclidine Scrn Ur Amphetamines Screen U Benzodiazepines Scrn U Oth Cocaine Metabols U Cannabinoids Screen Alcohol, Quantitative < 10 05/06/18 05/06/18 05/06/18 00:30 00:30 05:26 WBC RBC Hgb Hct MCV MCH MCHC RDW Plt Count MPV Neut % (Auto) Lymph % (Auto) Hart % (Auto) Eos % (Auto) Baso % (Auto) Neut # (Auto) Lymph # (Auto) Hart # (Auto) Eos # (Auto) Baso # (Auto) Neutrophils % (Manual) Band Neutrophils % Lymphocytes % (Manual) Monocytes % (Manual) Platelet Estimate RBC Morphology PT INR APTT pO2 17 L VBG pH 7.38 VBG pCO2 57 VBG HCO3 28.2 VBG Total CO2 35.4 H VBG O2 Sat (Calc) 25.3 L VBG Base Excess 6.8 H VBG Potassium 5.0 Glucose 96 Lactate 1.8 FiO2 21.0 Sodium 136.0 Potassium Chloride 103.0 Carbon Dioxide Anion Gap BUN Creatinine Est GFR ( Amer) Est GFR (Non-Af Amer) Random Glucose Calcium Total Bilirubin AST ALT Alkaline Phosphatase Troponin I Total Protein Albumin Globulin Albumin/Globulin Ratio Venous Blood Potassium 5.0 Urine Color Yellow Urine Clarity Cloudy Urine pH 6.0 Ur Specific [place] 1.014 Urine Protein 30 Urine Glucose (UA) Neg Urine Ketones Negative Urine Blood Moderate Urine Nitrate Positive H Urine Bilirubin Negative Urine Urobilinogen 0.2-1.0 Ur Leukocyte Esterase Large Urine RBC (Auto) 8 H Urine Microscopic WBC 279 H Ur Squamous Epith Cells 1 Urine Bacteria Mod H Urine Opiates Screen Negative Urine Methadone Screen Negative Ur Barbiturates Screen Negative Ur Phencyclidine Scrn Negative Ur Amphetamines Screen Negative U Benzodiazepines Scrn Negative U Oth Cocaine Metabols Negative U Cannabinoids Screen Negative Alcohol, Quantitative 05/06/18 06:30 WBC 16.1 H RBC 4.12 L Hgb 12.9 Hct 39.3 MCV 95.5 H MCH 31.3 H MCHC 32.8 L RDW 14.2 Plt Count 229 MPV 8.3 Neut % (Auto) 86.1 H Lymph % (Auto) 6.0 L Hart % (Auto) 7.2 Eos % (Auto) 0.3 Baso % (Auto) 0.4 Neut # (Auto) 13.8 H Lymph # (Auto) 1.0 Hart # (Auto) 1.1 H Eos # (Auto) 0.0 Baso # (Auto) 0.1 Neutrophils % (Manual) Band Neutrophils % Lymphocytes % (Manual) Monocytes % (Manual) Platelet Estimate RBC Morphology PT INR APTT pO2 VBG pH VBG pCO2 VBG HCO3 VBG Total CO2 VBG O2 Sat (Calc) VBG Base Excess VBG Potassium Glucose Lactate FiO2 Sodium Potassium Chloride Carbon Dioxide Anion Gap BUN Creatinine Est GFR ( Amer) Est GFR (Non-Af Amer) Random Glucose Calcium Total Bilirubin AST ALT Alkaline Phosphatase Troponin I Total Protein Albumin Globulin Albumin/Globulin Ratio Venous Blood Potassium Urine Color Urine Clarity Urine pH Ur Specific [place] Urine Protein Urine Glucose (UA) Urine Ketones Urine Blood Urine Nitrate Urine Bilirubin Urine Urobilinogen Ur Leukocyte Esterase Urine RBC (Auto) Urine Microscopic WBC Ur Squamous Epith Cells Urine Bacteria Urine Opiates Screen Urine Methadone Screen Ur Barbiturates Screen Ur Phencyclidine Scrn Ur Amphetamines Screen U Benzodiazepines Scrn U Oth Cocaine Metabols U Cannabinoids Screen Alcohol, Quantitative
--- NOTE | 2018-05-07 04:39 | CON ---
DATE: 05/06/2018 Neurology consult called by Dr. Kali Crespo for Mr. Nabeel Moody. HISTORY OF PRESENT ILLNESS: Mr. Moody is an 82-year-old male with past medical history of CAD, CHF, hypothyroidism, AFib with pacemaker who lives alone, presented to the emergency room with syncopal episode yesterday. The patient cannot recollect what happened but thinks he passed out. There is no tongue bite. There is no urinary incontinence. There is no tonic-clonic seizure. He woke up on the floor and had bilateral elbow pain. The patient was also not drinking alcohol during this time. He lives alone. REVIEW OF SYSTEMS: Today is negative for headache, nausea, vomiting, diarrhea, malaise. The patient returned from carotid Doppler and was examined at that time. PAST MEDICAL HISTORY: AFib, CAD, bradycardia, CHF, hypertension, hypercholesteremia, hypothyroidism. PAST SURGICAL HISTORY: Pacemaker, tonsillectomy. SOCIAL HISTORY: No tobacco, no alcohol. Lives alone. He does not drive. MEDICATIONS AT HOME: As follows: B12, digoxin, D2, Synthroid, Xarelto. ALLERGIES: NO KNOWN DRUG ALLERGIES. PHYSICAL EXAMINATION: GENERAL: The patient is alert, awake, oriented x1. He does not know the date. HEENT: Pupils are equal, round, and reactive to light. The patient is edentulous. EOMI. VFF. NEUROLOGIC: Motor tone strength normal. Moving all extremities. Sensory is intact to fine touch and pin. Gait was not tested, the patient refused. Reflexes are +2 upper and lower limb bilaterally. The patient was noted to be coughing profusely while eating and dysphasia is the concern. LABORATORY DATA: Labs are as follows: Hemoglobin 12.8, hematocrit 38.5, white count 20.9, platelets 210, glucose 272, sodium 137, potassium 4.7, BUN 32, creatinine 1.2. CAT scan of the head was done and shows the following. There is no fracture, hemorrhage, or stroke noted as was the full trauma survey. IMPRESSION: This is an 82-year-old male with cardiogenic syncope. His neurological exam is normal at that time. Our concern is his dysphagia which should be evaluated further but it is not neurologically based. PLAN: 1. Carotid Doppler. 2. Medical management. Thank you for this interesting consult. Please re-consult Neurology p.r.n. Barb Bernardo MD [facility] # [id number] JAMESON
[2018-05-07] MEDS: Levothyroxine 125 MCG TAB PO SCH (06:17)
[2018-05-07 06:19] LABS: ALB/GLOB RATIO 0.9 (1.0-2.1); ALBUMIN 2.9 g/dL (3.5-5.0); ALT/SGPT 34 U/L (21-72); AST/SGOT 45 U/L (17-59); BLOOD UREA NITROGEN 24 mg/dl (9-20); CALCIUM 9.4 mg/dL (8.4-10.2); GFR NON-AFRICAN AMERICAN > 60
[2018-05-07 06:26] LABS: HEMOGLOBIN 12.3 g/dL (12.0-18.0); MEAN CELL VOLUME 95.9 fl (80.0-94.0); MEAN CORPUSCULAR HEMOGLOBIN 31.7 pg (27.0-31.0); RBC 3.9 Mil/uL (4.40-5.90); RED CELL DISTRIBUTION WIDTH 14.3 % (11.5-14.5); WHITE BLOOD COUNT 8.1 K/uL (4.8-10.8)
[2018-05-07] MEDS: CYANOCOBALAMIN (VITAMIN B-12) 250 MCG TABLET PO SCH (09:19)
[2018-05-07] MEDS: Digoxin 125 mcg (0.125 mg) Tab PO SCH (09:20)
[2018-05-07] MEDS: Multivitamin With Minerals Tab PO SCH (09:20)
--- NOTE | 2018-05-07 10:50 | CP.PCM.PN ---
Subjective - Date & Time of Evaluation Date of Evaluation: 05/07/18 Time of Evaluation: 10:47 - Subjective Subjective: Neuro Follow-Up Note: Mr. Moody was evaluated this morning. Pt states that he feels well today and offers no complaints. Eager to be d/c. Has not had any recurrent syncopal episodes since admission. Denies h/a, dizziness, visual changes, chest pain, palpitations, sob, cough, abd pain, paresthesias, fever/chills. Objective - Vital Signs/Intake and Output Vital Signs (last 24 hours): Temp Pulse Resp BP Pulse Ox 98.4 F 61 18 147/91 H 97 05/07/18 08:00 05/07/18 08:00 05/07/18 08:00 05/07/18 08:00 05/07/18 08:00 - Medications Medications: Current Medications Cyanocobalamin (Vitamin B-12) 250 mcg PO DAILY [facility] Last Admin: 05/07/18 09:19 Dose: 250 mcg Digoxin (Digoxin) 0.125 mg PO TUTH [facility] Digoxin (Digoxin) 0.125 mg PO FRI [facility] Last Admin: 05/07/18 09:20 Dose: 0.125 mg Digoxin (Digoxin) 0.125 mg PO SUN [facility] Digoxin (Lanoxin) 0.25 mg PO WED [facility] Digoxin (Lanoxin) 0.25 mg PO SAT [facility] Digoxin (Digoxin) 0.125 mg PO MON [facility] Ergocalciferol (Drisdol 50,000 Intl Units Cap) 1 cap PO MO [facility] Ceftriaxone Sodium 1 gm/ (Sodium Chloride) 100 mls @ 100 mls/hr IVPB DAILY [facility]; Protocol Last Admin: 05/07/18 09:21 Dose: 100 mls/hr Levothyroxine Sodium (Synthroid) 250 mcg PO DAILY@0630 [facility] Last Admin: 05/07/18 06:17 Dose: 250 mcg Multivitamins/Minerals (Therapeutic-M Tab) 1 tab PO DAILY [facility] Last Admin: 05/07/18 09:20 Dose: 1 tab Rivaroxaban (Xarelto) 15 mg PO DAILY [facility]; Protocol Last Admin: 05/07/18 09:19 Dose: 15 mg Tamsulosin HCl (Flomax) 0.4 mg PO DAILY [facility] Last Admin: 05/07/18 09:20 Dose: 0.4 mg - Labs Labs: 05/07/18 04:35 05/07/18 04:35 PT 23.5 Seconds (9.8-13.1) H 05/06/18 00:05 INR 2.1 05/06/18 00:05 APTT 35.4 Seconds (25.6-37.1) 05/06/18 00:05 - Constitutional Appears: Well, Non-toxic, No Acute Distress - Head Exam Head Exam: ATRAUMATIC, NORMAL INSPECTION, NORMOCEPHALIC - Eye Exam Eye Exam: EOMI, Normal appearance, PERRL Pupil Exam: NORMAL ACCOMODATION, PERRL - ENT Exam ENT Exam: Mucous Membranes Moist - Neck Exam Neck Exam: Full ROM, Normal Inspection - Respiratory Exam Respiratory Exam: NORMAL BREATHING PATTERN - Extremities Exam Extremities Exam: absent: Calf Tenderness, Pedal Edema Additional comments: from noted to extremities; some weakness to BLE 2/2 deconditioning - Neurological Exam Neurological Exam: Alert, Awake, CN II-XII Intact, Oriented x3, Reflexes Normal Neuro motor strength exam: Left Upper Extremity: 5, Right Upper Extremity: 5, Left Lower Extremity: 4, Right Lower Extremity: 4 Additional comments: Speech clear, fluid Some weakness noted to BLE 2/2 deconditioning No tremors or abnormal movements No sensory deficits. - Psychiatric Exam Psychiatric exam: Normal Affect, Normal Mood - Skin Skin Exam: Dry, Intact Additional comments: discoloration ble Assessment and Plan (1) Syncope Assessment & Plan: Imaging reviewed: -CT Head (05/05/18): No acute or significant findings related to/ accounting for the clinical presentation. Additional benign and/or incidental findings described above. No significant interval change compared to the prior examination(s). -Carotid and Vertebral Artery U/S ordered--f/u with results. If no occlusion or significant stenosis, pt can be cleared from neuro standpoint and we can be reconsulted prn. -Continue treatment of infectious process per ID and primary. -Continue PT. Thank you. Michelle Leigh, DNP, NUCLEAR PROCESS ENGINEER Discussed with Dr. Bernardo Status: Acute
--- NOTE | 2018-05-07 13:23 | CP.PCM.CON ---
History of Present Illness - History of Present Illness History of Present Illness: Consultation for evaluation of syncope HPI: Mr. Dawson is a 82-year-old male with past medical history significant for atrial fibrillation status post pacemaker placement hypothyroidism CHF with preserved ejection fraction who presented to the emergency room with a syncopal episode patient was unable to provide any meaningful history my student was able to talk to her granddaughter who said over the past few months patient had r ecurrent multiple falls etiology of which remain unclear. Patient was admitted was noted to have underlying A. fib with ventricular paced rhythm at the time of initial presentation we did not have much information and all of the efforts were done to obtain records via review of the [employer] system. Past medical history as stated above significant for hypothyroid Review of Systems - Review of Systems Systems not reviewed;Unavailable: Acuity of Condition - Constitutional Constitutional: As Per HPI - EENT Eyes: As Per HPI Ears: As Per HPI Nose/Mouth/Throat: As Per HPI - Cardiovascular Cardiovascular: As Per HPI - Respiratory Respiratory: As Per HPI - Gastrointestinal Gastrointestinal: As Per HPI - Genitourinary Genitourinary: As Per HPI - Reproductive: Male Reproductive:Male: As Per HPI - Musculoskeletal Musculoskeletal: As Per HPI - Integumentary Integumentary: As Per HPI - Neurological Neurological: As Per HPI - Psychiatric Psychiatric: As Per HPI - Endocrine Endocrine: As Per HPI - Hematologic/Lymphatic Hematologic: As Per HPI Past Patient History - Past Medical History & Family History Past Medical History?: Yes - Past Social History Smoking Status: Former Smoker - CARDIAC Hx Atrial Fibrillation: Yes Hx Cardia Arrhythmia: Yes (bradycardia) Hx Congestive Heart Failure: Yes Hx Hypercholesterolemia: Yes Hx Hypertension: Yes Hx Pacemaker: Yes - PULMONARY Hx Respiratory Disorders: No - NEUROLOGICAL Hx Neurological Disorder: No - HEENT Hx HEENT Problems: No - RENAL Hx Chronic Kidney Disease: No - ENDOCRINE/METABOLIC Hx Endocrine Disorders: Yes Hx Hypothyroidism: Yes - HEMATOLOGICAL/ONCOLOGICAL Hx Blood Disorders: No Hx AIDS: No Hx Human Immunodeficiency Virus (HIV): No - INTEGUMENTARY Hx Dermatological Problems: No Hx Cellulitis: Yes - MUSCULOSKELETAL/RHEUMATOLOGICAL Hx Musculoskeletal Disorders: Yes Hx Falls: Yes - GASTROINTESTINAL Hx Gastrointestinal Disorders: No - GENITOURINARY/GYNECOLOGICAL Hx Genitourinary Disorders: No - PSYCHIATRIC Hx Psychophysiologic Disorder: No Hx Emotional Abuse: No Hx Physical Abuse: No Hx Substance Use: No - SURGICAL HISTORY Hx Tonsillectomy: Yes - ANESTHESIA Hx Anesthesia: Yes Hx Anesthesia Reactions: No Hx Malignant Hyperthermia: No Meds Allergies/Adverse Reactions: Allergies Allergy/AdvReac Type Severity Reaction Status Date / Time No Known Allergies Allergy Unknown RASH Verified 01/05/18 16:45 - Medications Medications: Current Medications Cyanocobalamin (Vitamin B-12) 250 mcg PO DAILY [facility] Last Admin: 05/07/18 09:19 Dose: 250 mcg Digoxin (Digoxin) 0.125 mg PO TUTH [facility] Digoxin (Digoxin) 0.125 mg PO FRI [facility] Last Admin: 05/07/18 09:20 Dose: 0.125 mg Digoxin (Digoxin) 0.125 mg PO SUN [facility] Digoxin (Lanoxin) 0.25 mg PO WED [facility] Digoxin (Lanoxin) 0.25 mg PO SAT [facility] Digoxin (Digoxin) 0.125 mg PO MON [facility] Ergocalciferol (Drisdol 50,000 Intl Units Cap) 1 cap PO MO [facility] Ceftriaxone Sodium 1 gm/ (Sodium Chloride) 100 mls @ 100 mls/hr IVPB DAILY [facility]; Protocol Last Admin: 05/07/18 09:21 Dose: 100 mls/hr Levothyroxine Sodium (Synthroid) 250 mcg PO DAILY@0630 [facility] Last Admin: 05/07/18 06:17 Dose: 250 mcg Multivitamins/Minerals (Therapeutic-M Tab) 1 tab PO DAILY [facility] Last Admin: 05/07/18 09:20 Dose: 1 tab Rivaroxaban (Xarelto) 15 mg PO DAILY [facility]; Protocol Last Admin: 05/07/18 09:19 Dose: 15 mg Tamsulosin HCl (Flomax) 0.4 mg PO DAILY [facility] Last Admin: 05/07/18 09:20 Dose: 0.4 mg Physical Exam - Constitutional Appears: Well - Head Exam Head Exam: ATRAUMATIC, NORMAL INSPECTION, NORMOCEPHALIC - Eye Exam Eye Exam: EOMI, Normal appearance, PERRL Pupil Exam: NORMAL ACCOMODATION, PERRL - ENT Exam ENT Exam: Mucous Membranes Moist, Normal Exam - Neck Exam Neck exam: Positive for: Normal Inspection - Respiratory Exam Respiratory Exam: Clear to Auscultation Bilateral, NORMAL BREATHING PATTERN - Cardiovascular Exam Cardiovascular Exam: REGULAR RHYTHM - GI/Abdominal Exam GI & Abdominal Exam: Normal Bowel Sounds, Soft. absent: Tenderness - Rectal Exam Rectal Exam: NORMAL INSPECTION - Exam Exam: Circumcision, NORMAL INSPECTION External exam: NORMAL EXTERNAL EXAM Speculum exam: NORMAL SPECULUM EXAM Bimanual exam: NORMAL BIMANUAL EXAM - Extremities Exam Extremities exam: Positive for: normal inspection - Back Exam Back exam: NORMAL INSPECTION - Neurological Exam Neurological exam: Alert, CN II-XII Intact, Normal Gait, Oriented x3, Reflexes Normal - Psychiatric Exam Psychiatric exam: Normal Affect, Normal Mood - Skin Skin Exam: Dry, Intact, Normal Color, Warm Results - Vital Signs Recent Vital Signs: Last Vital Signs Temp 98.3 F 05/07/18 11:52 Pulse 60 05/07/18 11:52 Resp 18 05/07/18 11:52 BP 109/68 05/07/18 11:52 Pulse Ox 96 05/07/18 11:52 - Labs Result Diagrams: 05/10/18 04:20 05/10/18 04:20 Labs: Laboratory Results - last 24 hr 05/07/18 05/07/18 04:35 04:35 WBC 8.1 RBC 3.90 L Hgb 12.3 Hct 37.4 MCV 95.9 H MCH 31.7 H MCHC 33.0 RDW 14.3 Plt Count 213 Sodium 138 Potassium 3.8 Chloride 106 Carbon Dioxide 25 Anion Gap 11 BUN 24 H Creatinine 1.0 Est GFR ( Amer) > 60 Est GFR (Non-Af Amer) > 60 Random Glucose 82 Calcium 9.4 Phosphorus 2.9 Magnesium 1.4 L Total Bilirubin 0.4 AST 45 ALT 34 Alkaline Phosphatase 82 Total Protein 6.3 Albumin 2.9 L Globulin 3.4 Albumin/Globulin Ratio 0.9 L TSH 3rd Generation 0.05 L Assessment & Plan (1) Syncope Assessment and Plan: etiology unclear ? vasovagal vs/preload dependency orthostatics echo ischemic evaluation Status: Acute (2) UTI (urinary tract infection) Assessment and Plan: abx per ID Status: Acute (3) Abnormal gait Status: Acute (4) Chronic a-fib Assessment and Plan: xarelto rate control with digoxin check digoxin levels bb Status: Acute
--- NOTE | 2018-05-07 14:35 | CP.PCM.CON ---
History of Present Illness - History of Present Illness History of Present Illness: 82 year old male with history of AFib with pacemaker, CAD, CHF, hypothyroidism who presented to the ED with syncopal episode. patient has been falling with increased frequency recently. Septic work up + for cocci in blood and gram neg in urine ICV rx in progress Dr Welch on board PMHx: Atrial fibrillation s/p pacemaker, CAD, Bradycardia, CHF with preserved EF, Hypothyroidism SurgHx: pacemaker FMHx: noncontributory Medications: as per chart Allergies: NKDA Review of Systems - Review of Systems All systems: reviewed and no additional remarkable complaints except - Constitutional Constitutional: As Per HPI - EENT Eyes: absent: As Per HPI, Blind Spots, Blurred Vision, Change in Vision, Decreased Night Vision, Diplopia, Discharge, Dry Eye, Exophthalmos, Floaters, Irritation, Itchy Eyes, Loss of Peripheral Vision, Pain, Photophobia, Requires Corrective Lenses, Sees Flashes, Spots in Vision, Tunnel Vision, Other Visual Disturbances, Loss of Vision, Other Ears: absent: As Per HPI, Decreased Hearing, Ear Discharge, Ear Pain, Tinnitus, Abnormal Hearing, Disequilibrium, Dizziness, Other Nose/Mouth/Throat: absent: As Per HPI, Epistaxis, Nasal Congestion, Nasal Discharge, Nasal Obstruction, Nasal Trauma, Nose Pain, Post Nasal Drip, Sinus Pain, Sinus Pressure, Bleeding Gums, Change in Voice, Dental Pain, Dry Mouth, Dysphagia, Halitosis, Hoarsness, Lip Swelling, Mouth Lesions, Mouth Pain, Odynophagia, Sore Throat, Throat Swelling, Tongue Swelling, Facial Pain, Neck Pain, Neck Mass, Other - Cardiovascular Cardiovascular: As Per HPI - Respiratory Respiratory: absent: As Per HPI, Cough, Dyspnea, Hemoptysis, Dyspnea on Exertion, Wheezing, Snoring, Stridor, Pain on Inspiration, Chest Congestion, Excessive Mucous Production, Change in Mucous Color, Pain with Coughing, Other - Gastrointestinal Gastrointestinal: absent: As Per HPI, Abdominal Pain, Belching, Bloating, Change in Bowel Habits, Change in Stool Character, Coffee Ground Emesis, Constipation, Cramping, Diarrhea, Dyspepsia, Dysphagia, Early Satiety, Excessive Flatus, Fecal Incontinence, Heartburn, Hematemesis, Hematochezia, Loose Stools, Melena, Nausea, Odynophagia, Temesmus, Vomiting, Other - Genitourinary Genitourinary: absent: As Per HPI, Change in Urinary Stream, Difficulty Urinating, Dysuria, Flank Pain, Hematuria, Pyuria, Nocturia, Urinary Incontinence, Urinary Frequency, Urinary Hesitance, Urinary Urgency, Voiding Freq/Small Amts, Freq UTI, Hx Renal/Bladder Calculi, Hx /Renal Surgery, Bl adder Distension, Other - Musculoskeletal Musculoskeletal: As Per HPI - Integumentary Integumentary: absent: As Per HPI, Acne, Alopecia, Bleeding Lesions, Change in Hair, Change in Nails, Change in Pigmentation, Changing Lesions, Dry Skin, Erythema, Furuncle, Hirsutism, Lesions, New Lesions, Non-Healing Lesions, Photosensitivity, Pruritus, Rash, Skin Pain, Skin Ulcer, Sores, Striae, Swelling, Unusual Bruising, Wounds, Jaundice, Other - Neurological Neurological: As Per HPI - Psychiatric Psychiatric: absent: As Per HPI, Abnormal Sleep Pattern, Anhedonia, Anxiety, Auditory Hallucinations, Behavioral Changes, Change in Appetite, Change in Libido, Confusion, Depression, Difficulty Concentrating, Hallucinations, Homicidal Ideation, Hopelessness, Irritability, Memory Loss, Mood Swings, Panic Attacks, Paranoia, Suicidal Ideation, Visual Hallucinations, Tactile Hallucinations, Other - Endocrine Endocrine: absent: As Per HPI, Change in Body Appearance, Change in Libido, Cold Intolorance, Deepening of Voice, Excessive Sweating, Fatigue, Flushing, Heat Intolorance, Increase in Ring/Shoe/Hat Size, Palpitations, Polydipsia, Polyphagia, Polyuria, Other - Hematologic/Lymphatic Hematologic: absent: As Per HPI, Easy Bleeding, Easy Bruising, Lymphadenopathy, Other Past Patient History - Past Medical History & Family History Past Medical History?: Yes - Past Social History Smoking Status: Former Smoker - CARDIAC Hx Atrial Fibrillation: Yes Hx Cardia Arrhythmia: Yes (bradycardia) Hx Congestive Heart Failure: Yes Hx Hypercholesterolemia: Yes Hx Hypertension: Yes Hx Pacemaker: Yes - PULMONARY Hx Respiratory Disorders: No - NEUROLOGICAL Hx Neurological Disorder: No - HEENT Hx HEENT Problems: No - RENAL Hx Chronic Kidney Disease: No - ENDOCRINE/METABOLIC Hx Endocrine Disorders: Yes Hx Hypothyroidism: Yes - HEMATOLOGICAL/ONCOLOGICAL Hx Blood Disorders: No Hx AIDS: No Hx Human Immunodeficiency Virus (HIV): No - INTEGUMENTARY Hx Dermatological Problems: No Hx Cellulitis: Yes - MUSCULOSKELETAL/RHEUMATOLOGICAL Hx Musculoskeletal Disorders: Yes Hx Falls: Yes - GASTROINTESTINAL Hx Gastrointestinal Disorders: No - GENITOURINARY/GYNECOLOGICAL Hx Genitourinary Disorders: No - PSYCHIATRIC Hx Psychophysiologic Disorder: No Hx Emotional Abuse: No Hx Physical Abuse: No Hx Substance Use: No - SURGICAL HISTORY Hx Tonsillectomy: Yes - ANESTHESIA Hx Anesthesia: Yes Hx Anesthesia Reactions: No Hx Malignant Hyperthermia: No Meds Allergies/Adverse Reactions: Allergies Allergy/AdvReac Type Severity Reaction Status Date / Time No Known Allergies Allergy Unknown RASH Verified 01/05/18 16:45 - Medications Medications: Current Medications Cyanocobalamin (Vitamin B-12) 250 mcg PO DAILY [facility] Last Admin: 05/07/18 09:19 Dose: 250 mcg Digoxin (Digoxin) 0.125 mg PO TUTH [facility] Digoxin (Digoxin) 0.125 mg PO FRI [facility] Last Admin: 05/07/18 09:20 Dose: 0.125 mg Digoxin (Digoxin) 0.125 mg PO SUN [facility] Digoxin (Lanoxin) 0.25 mg PO WED [facility] Digoxin (Lanoxin) 0.25 mg PO SAT [facility] Digoxin (Digoxin) 0.125 mg PO MON [facility] Ergocalciferol (Drisdol 50,000 Intl Units Cap) 1 cap PO MO [facility] Ceftriaxone Sodium 1 gm/ (Sodium Chloride) 100 mls @ 100 mls/hr IVPB DAILY [facility]; Protocol Last Admin: 05/07/18 09:21 Dose: 100 mls/hr Levothyroxine Sodium (Synthroid) 250 mcg PO DAILY@0630 [facility] Last Admin: 05/07/18 06:17 Dose: 250 mcg Multivitamins/Minerals (Therapeutic-M Tab) 1 tab PO DAILY [facility] Last Admin: 05/07/18 09:20 Dose: 1 tab Rivaroxaban (Xarelto) 15 mg PO DAILY [facility]; Protocol Last Admin: 05/07/18 09:19 Dose: 15 mg Tamsulosin HCl (Flomax) 0.4 mg PO DAILY [facility] Last Admin: 05/07/18 09:20 Dose: 0.4 mg Physical Exam - Constitutional Appears: Non-toxic, No Acute Distress, Chronically Ill - Head Exam Head Exam: ATRAUMATIC, NORMAL INSPECTION, NORMOCEPHALIC - Eye Exam Eye Exam: EOMI, PERRL. absent: Scleral icterus Pupil Exam: NORMAL ACCOMODATION - ENT Exam ENT Exam: Mucous Membranes Dry - Neck Exam Neck exam: Negative for: Lymphadenopathy - Respiratory Exam Respiratory Exam: Decreased Breath Sounds, Prolonged Expiratory Phase, Rhonchi - Cardiovascular Exam Cardiovascular Exam: Irregular Rhythm, +S1, +S2. absent: Gallop - GI/Abdominal Exam GI & Abdominal Exam: Diminished Bowel Sounds, Distended, Soft. absent: Tenderness - Rectal Exam Rectal Exam: Deferred - Exam Exam: NORMAL INSPECTION - Extremities Exam Extremities exam: Positive for: pedal edema, pedal pulses present. Negative for: calf tenderness, tenderness - Back Exam Back exam: absent: CVA tenderness (L), CVA tenderness (R) - Neurological Exam Neurological exam: Alert, CN II-XII Intact, Motor Sensory Deficit, Oriented x3, Reflexes Normal - Psychiatric Exam Psychiatric exam: Depressed - Skin Skin Exam: Dry Results - Vital Signs Recent Vital Signs: Last Vital Signs Temp 98.3 F 05/07/18 11:52 Pulse 60 05/07/18 11:52 Resp 18 05/07/18 11:52 BP 109/68 05/07/18 11:52 Pulse Ox 96 05/07/18 11:52 - Labs Result Diagrams: 05/07/18 04:35 05/07/18 04:35 Labs: Laboratory Results - last 24 hr 05/07/18 05/07/18 05/07/18 04:35 04:35 04:35 WBC 8.1 RBC 3.90 L Hgb 12.3 Hct 37.4 MCV 95.9 H MCH 31.7 H MCHC 33.0 RDW 14.3 Plt Count 213 Sodium 138 Potassium 3.8 Chloride 106 Carbon Dioxide 25 Anion Gap 11 BUN 24 H Creatinine 1.0 Est GFR ( Amer) > 60 Est GFR (Non-Af Amer) > 60 Random Glucose 82 Calcium 9.4 Phosphorus 2.9 Magnesium 1.4 L Total Bilirubin 0.4 AST 45 ALT 34 Alkaline Phosphatase 82 Total Protein 6.3 Albumin 2.9 L Globulin 3.4 Albumin/Globulin Ratio 0.9 L Procalcitonin 0.31 TSH 3rd Generation 0.05 L Assessment & Plan (1) Syncope Status: Acute (2) UTI (urinary tract infection) Status: Acute (3) NICOLLE (acute kidney injury) Status: Acute (4) Abnormal gait Status: Acute (5) CKD (chronic kidney disease) stage 2, GFR 60-89 ml/min Status: Acute (6) Chest pain Status: Acute (7) Chronic a-fib Status: Acute (8) Debility Status: Acute (9) Dehydration Status: Acute - Assessment and Plan (Free Text) Assessment: 82 year old male with history of AFib with pacemaker, CAD, CHF, hypothyroidism who presented to the ED with syncopal episode. patient has been falling with increased frequency recently. Septic work up + for cocci in blood and gram neg in urine ICV rx in progress Dr Welch on board Plan: empiric IV rx in progress await final cultures
--- NOTE | 2018-05-07 15:36 | US ---
Date of service: 05/07/2018 PROCEDURE: Duplex ultrasound of the carotid and vertebral arteries. HISTORY: syncopal episode, r/o lv occlusion/stenosis COMPARISON: None available. TECHNIQUE: Grayscale and duplex Doppler evaluation of the cervical carotid and vertebral arteries were performed. The common carotid, carotid bifurcations and cervical ICA and proximal ECA were evaluated. The vertebral arteries were evaluated for gross patency and direction. FINDINGS: RIGHT CAROTID ARTERIES: Common Carotid Artery: Maximal flow velocity of 43.5 cm/s. Carotid Bifurcation: Intimal thickening is present Internal Carotid Artery:Heterogeneous plaque formation. Maximal flow velocity of 50.9 cm/s. External Carotid Artery (proximal branches): Maximal flow velocity of 84.6 cm/s. ICA/CCA Ratio: 1.2 LEFT CAROTID ARTERIES: Common Carotid Artery: Maximal flow velocity of 53.7 cm/s. Carotid Bifurcation: Intimal thickening is present Internal Carotid Artery:Heterogeneous plaque formation. Maximal flow velocity of 78.0 cm/s. External Carotid Artery (proximal branches): Maximal flow velocity of 56.6 cm/s. ICA/CCA Ratio: 1.5 VERTEBRAL ARTERIES: Right Vertebral Artery: Patent. Antegrade flow. Left Vertebral Artery: Patent. Antegrade flow. OTHER FINDINGS: Atherosclerotic calcification present. IMPRESSION: Right ICA degree of stenosis: Less than 50% Left ICA degree of stenosis: Less than 50% Reference Internal Carotid Artery (ICA) Peak Systolic Velocity (PSV) for above: 1. Less than 50% stenosis less than 125 cm/s peak systolic velocity 2. 50-69% stenosis 125-230cm/s peak systolic velocity 3. Greater than 70% but less than near occlusion greater than 230 cm/s peak systolic velocity
--- NOTE | 2018-05-07 17:37 | CP.PCM.CON ---
History of Present Illness - History of Present Illness History of Present Illness: Podiatry Consult Note: Dr. Davenport 82 year old male patient with PMHx of Afib, CAD, CHF, Hypothyroidism, seen and evaluated for R submetatarsal 5 ulceration and L preulcerative submetatarsal 5 lesion. Patient states that he is well known to Dr. Davenport and in the past followed in the wound care center. He notes that his foot hurts to bear weight on the the area of the ulcerative lesion. He denies any nausea/vomiting/fever/shortness of breath/chest pain. PMHx: Atrial fibrillation s/p pacemaker, CAD, CHF, Hypothyroidism SHx: Pacemaker ALL: NKDA Past Patient History - Past Medical History & Family History Past Medical History?: Yes - Past Social History Smoking Status: Former Smoker - CARDIAC Hx Atrial Fibrillation: Yes Hx Cardia Arrhythmia: Yes (bradycardia) Hx Congestive Heart Failure: Yes Hx Hypercholesterolemia: Yes Hx Hypertension: Yes Hx Pacemaker: Yes - PULMONARY Hx Respiratory Disorders: No - NEUROLOGICAL Hx Neurological Disorder: No - HEENT Hx HEENT Problems: No - RENAL Hx Chronic Kidney Disease: No - ENDOCRINE/METABOLIC Hx Endocrine Disorders: Yes Hx Hypothyroidism: Yes - HEMATOLOGICAL/ONCOLOGICAL Hx Blood Disorders: No Hx AIDS: No Hx Human Immunodeficiency Virus (HIV): No - INTEGUMENTARY Hx Dermatological Problems: No Hx Cellulitis: Yes - MUSCULOSKELETAL/RHEUMATOLOGICAL Hx Musculoskeletal Disorders: Yes Hx Falls: Yes - GASTROINTESTINAL Hx Gastrointestinal Disorders: No - GENITOURINARY/GYNECOLOGICAL Hx Genitourinary Disorders: No - PSYCHIATRIC Hx Psychophysiologic Disorder: No Hx Emotional Abuse: No Hx Physical Abuse: No Hx Substance Use: No - SURGICAL HISTORY Hx Tonsillectomy: Yes - ANESTHESIA Hx Anesthesia: Yes Hx Anesthesia Reactions: No Hx Malignant Hyperthermia: No Meds Allergies/Adverse Reactions: Allergies Allergy/AdvReac Type Severity Reaction Status Date / Time No Known Allergies Allergy Unknown RASH Verified 01/05/18 16:45 - Medications Medications: Current Medications Cyanocobalamin (Vitamin B-12) 250 mcg PO DAILY [facility] Last Admin: 05/07/18 09:19 Dose: 250 mcg Digoxin (Digoxin) 0.125 mg PO [facility] Digoxin (Digoxin) 0.125 mg PO THU [facility] Last Admin: 05/07/18 09:20 Dose: 0.125 mg Digoxin (Digoxin) 0.125 mg PO [facility] Digoxin (Lanoxin) 0.25 mg PO WED [facility] Digoxin (Lanoxin) 0.25 mg PO SAT [facility] Digoxin (Digoxin) 0.125 mg PO MON [facility] Ergocalciferol (Drisdol 50,000 Intl Units Cap) 1 cap PO MO [facility] Ceftriaxone Sodium 1 gm/ (Sodium Chloride) 100 mls @ 100 mls/hr IVPB DAILY [facility]; Protocol Last Admin: 05/07/18 09:21 Dose: 100 mls/hr Levothyroxine Sodium (Synthroid) 250 mcg PO DAILY@0630 [facility] Last Admin: 05/07/18 06:17 Dose: 250 mcg Multivitamins/Minerals (Therapeutic-M Tab) 1 tab PO DAILY [facility] Last Admin: 05/07/18 09:20 Dose: 1 tab Rivaroxaban (Xarelto) 15 mg PO DAILY [facility]; Protocol Last Admin: 05/07/18 09:19 Dose: 15 mg Tamsulosin HCl (Flomax) 0.4 mg PO DAILY [facility] Last Admin: 05/07/18 09:20 Dose: 0.4 mg Physical Exam - Constitutional Appears: Non-toxic, No Acute Distress - Head Exam Head Exam: ATRAUMATIC, NORMOCEPHALIC - Extremities Exam Additional comments: Vasc: DP and PT nonpalpable, temperature gradient cool to cool, CFT <4 seconds to the digits, edema noted to the LE bilaterally Ortho: MMT is 5/5 in all four compartments, tenderness noted to palpation surrounding ulceration site Neuro: Gross sensation intact, protective sensation diminished Derm: Ulceration secondary to pressure appreciated to the R submetatarsal 5 with no exposed bone. No drainage appreciated with hyperkeratotic rim. No purulence, no erythema, no cellulitis, no clinical signs of infection. L submetatarsal 5 pre-ulcerative lesion appreciated. Elongated, dystrophic nails x10 appreciated - Neurological Exam Neurological exam: Alert - Psychiatric Exam Psychiatric exam: Normal Affect, Normal Mood Results - Vital Signs Recent Vital Signs: Last Vital Signs Temp 98.1 F 05/07/18 15:31 Pulse 85 05/07/18 15:31 Resp 20 05/07/18 15:31 BP 144/76 05/07/18 15:31 Pulse Ox 95 05/07/18 15:31 - Labs Result Diagrams: 05/07/18 04:35 05/07/18 04:35 Labs: Laboratory Results - last 24 hr 05/07/18 05/07/18 05/07/18 04:35 04:35 04:35 WBC 8.1 RBC 3.90 L Hgb 12.3 Hct 37.4 MCV 95.9 H MCH 31.7 H MCHC 33.0 RDW 14.3 Plt Count 213 Sodium 138 Potassium 3.8 Chloride 106 Carbon Dioxide 25 Anion Gap 11 BUN 24 H Creatinine 1.0 Est GFR ( Amer) > 60 Est GFR (Non-Af Amer) > 60 Random Glucose 82 Calcium 9.4 Phosphorus 2.9 Magnesium 1.4 L Total Bilirubin 0.4 AST 45 ALT 34 Alkaline Phosphatase 82 Total Protein 6.3 Albumin 2.9 L Globulin 3.4 Albumin/Globulin Ratio 0.9 L Procalcitonin 0.31 TSH 3rd Generation 0.05 L Assessment & Plan - Assessment and Plan (Free Text) Assessment: 82 year old male patient with PMHx of Afib, CAD, CHF, Hypothyroidism, seen and evaluated for R submetatarsal 5 ulceration and L preulcerative submetatarsal 5 lesion secondary to pressure Plan: Patient was examined and evaluated at bedside Charts, labs, vitals reviewed: WBC 8.1, afebrile R foot x-ray ordered; pending R foot wound culture taken Nails debrided with a large nail nipper without incident F/u Vasc reccs F/u ID reccs Ulceration cleansed, dressed with optifoam Will continue to follow - Date & Time Date: 05/07/18 Time: 17:47
[2018-05-08] MEDS: Levothyroxine 125 MCG TAB PO SCH (06:11)
[2018-05-08] MEDS: Digoxin 250 mcg (0.25 mg) Tab PO SCH (08:08)
[2018-05-08] MEDS: Multivitamin With Minerals Tab PO SCH (08:09)
[2018-05-08] MEDS: CYANOCOBALAMIN (VITAMIN B-12) 250 MCG TABLET PO SCH (08:09)
[2018-05-08] MEDS ORDERED: Digoxin 125 mcg (0.125 mg) Tab PO SCH (10:19)
--- NOTE | 2018-05-08 15:56 | RAD ---
Date of service: 05/08/2018 PROCEDURE: Right Foot Radiographs. HISTORY: r/o OM submetatarsal 5 COMPARISON: None. TECHNIQUE: 3 views obtained. FINDINGS: Significant hallux valgus deformity with DJD 1st MTP joint. Multiple hammertoe deformities with extension deformities at the MTP joints. Multi articular degenerative osteoarthritis. Slight cortical irregularity of the lateral aspect base 5th metatarsal. Possibility of underlying osteomyelitis cannot be excluded and therefore follow-up MRI could be performed if indicated. No definitive evidence of subcutaneous emphysema Plantar and posterior surface calcaneal enthesophyte formation JOINTS: Normal. SOFT TISSUES: Normal. OTHER FINDINGS: None. IMPRESSION: Slight cortical irregularity of the lateral aspect base 5th metatarsal. Possibility of underlying osteomyelitis cannot be excluded and therefore follow-up MRI could be performed if indicated.
--- NOTE | 2018-05-08 15:58 | CP.PCM.PCO ---
Physician Communication Note - Physician Communication Note Physician Communication Note: staph aureus in blood- consider JANEE
[2018-05-09 06:14] LABS: BASO # 0.1 K/uL (0.0-0.2); BASO % 0.8 % (0.0-2.0); EOS # 0.3 K/uL (0.0-0.7); EOS % 3.3 % (0.0-4.0); HEMOGLOBIN 11.8 g/dL (12.0-18.0); LYMPH # 2.3 K/uL (1.0-4.3); LYMPH % 23.5 % (20.0-40.0); MEAN CELL VOLUME 94.3 fl (80.0-94.0); MEAN CORPUSCULAR HEMOGLOBIN 31.7 pg (27.0-31.0); MEAN CORPUSCULAR HGB CONC 33.6 g/dL (33.0-37.0); MEAN PLATELET VOLUME 8.7 fl (7.2-11.7); MONO # 1.1 K/uL (0.0-0.8); MONO % 11.1 % (0.0-10.0); NEUT % 61.3 % (50.0-75.0); RBC 3.72 Mil/uL (4.40-5.90); RED CELL DISTRIBUTION WIDTH 13.9 % (11.5-14.5); WHITE BLOOD COUNT 9.8 K/uL (4.8-10.8)
[2018-05-09] MEDS: Levothyroxine 125 MCG TAB PO SCH (06:18)
[2018-05-09 06:32] LABS: ALB/GLOB RATIO 0.8 (1.0-2.1); ALBUMIN 2.8 g/dL (3.5-5.0); ALT/SGPT 29 U/L (21-72); AST/SGOT 34 U/L (17-59); BLOOD UREA NITROGEN 19 mg/dl (9-20); CALCIUM 9.1 mg/dL (8.4-10.2); GFR NON-AFRICAN AMERICAN > 60
[2018-05-09] MEDS: Digoxin 125 mcg (0.125 mg) Tab PO SCH (08:35)
[2018-05-09] MEDS: Multivitamin With Minerals Tab PO SCH (08:36)
[2018-05-09] MEDS: CYANOCOBALAMIN (VITAMIN B-12) 250 MCG TABLET PO SCH (08:36)
--- NOTE | 2018-05-09 14:15 | CP.PCM.PN ---
Subjective - Date & Time of Evaluation Date of Evaluation: 05/09/18 Time of Evaluation: 09:00 - Subjective Subjective: seen on rounds growing MSSA in blood and Morganella in urine IV antibiiotics in progress consider echo/JANEE Objective - Vital Signs/Intake and Output Vital Signs (last 24 hours): Temp Pulse Resp BP Pulse Ox 98 F 60 18 124/82 96 05/09/18 12:18 05/09/18 12:18 05/09/18 12:18 05/09/18 12:18 05/09/18 12:18 - Medications Medications: Current Medications Cyanocobalamin (Vitamin B-12) 250 mcg PO DAILY [facility] Last Admin: 05/09/18 08:36 Dose: 250 mcg Digoxin (Digoxin) 0.125 mg PO TUTH [facility] Digoxin (Digoxin) 0.125 mg PO FRI [facility] Last Admin: 05/07/18 09:20 Dose: 0.125 mg Digoxin (Digoxin) 0.125 mg PO SUN [facility] Last Admin: 05/09/18 08:35 Dose: 0.125 mg Digoxin (Lanoxin) 0.25 mg PO WED [facility] Digoxin (Lanoxin) 0.25 mg PO SAT [facility] Last Admin: 05/08/18 08:08 Dose: 0.25 mg Digoxin (Digoxin) 0.125 mg PO MON [facility] Ergocalciferol (Drisdol 50,000 Intl Units Cap) 1 cap PO MO [facility] Ceftriaxone Sodium 1 gm/ (Sodium Chloride) 100 mls @ 100 mls/hr IVPB DAILY [facility]; Protocol Last Admin: 05/09/18 08:45 Dose: 100 mls/hr Vancomycin HCl 1 gm/ Sodium (Chloride) 250 mls @ 166.667 mls/hr IVPB Q12H [facility]; Protocol Last Admin: 05/09/18 09:24 Dose: 166.667 mls/hr Levothyroxine Sodium (Synthroid) 250 mcg PO DAILY@0630 [facility] Last Admin: 05/09/18 06:18 Dose: 250 mcg Multivitamins/Minerals (Therapeutic-M Tab) 1 tab PO DAILY [facility] Last Admin: 05/09/18 08:36 Dose: 1 tab Rivaroxaban (Xarelto) 15 mg PO DAILY [facility]; Protocol Last Admin: 05/09/18 08:36 Dose: 15 mg Tamsulosin HCl (Flomax) 0.4 mg PO DAILY [facility] Last Admin: 05/09/18 08:36 Dose: 0.4 mg - Labs Labs: 05/09/18 04:25 05/09/18 04:25 PT 23.5 Seconds (9.8-13.1) H 05/06/18 00:05 INR 2.1 05/06/18 00:05 APTT 35.4 Seconds (25.6-37.1) 05/06/18 00:05 - Constitutional Appears: Non-toxic, No Acute Distress, Chronically Ill - Head Exam Head Exam: ATRAUMATIC, NORMAL INSPECTION, NORMOCEPHALIC - Eye Exam Eye Exam: EOMI, Normal appearance, PERRL Pupil Exam: NORMAL ACCOMODATION, PERRL - ENT Exam ENT Exam: Mucous Membranes Moist, Normal Exam - Neck Exam Neck Exam: Full ROM, Normal Inspection. absent: Lymphadenopathy - Respiratory Exam Respiratory Exam: Clear to Ausculation Bilateral, NORMAL BREATHING PATTERN - Cardiovascular Exam Cardiovascular Exam: REGULAR RHYTHM, +S1, +S2. absent: Murmur - GI/Abdominal Exam GI & Abdominal Exam: Distended, Soft, Normal Bowel Sounds. absent: Tenderness - Rectal Exam Rectal Exam: Deferred - Extremities Exam Extremities Exam: Full ROM, Normal Capillary Refill, Normal Inspection. absent: Joint Swelling, Pedal Edema - Back Exam Back Exam: NORMAL INSPECTION - Neurological Exam Neurological Exam: Alert, Awake, CN II-XII Intact, Motor Sensory Deficit, Oriented x3. absent: Normal Gait Neuro motor strength exam: Left Upper Extremity: 3, Right Upper Extremity: 3, Left Lower Extremity: 3, Right Lower Extremity: 3 - Psychiatric Exam Psychiatric exam: Depressed - Skin Skin Exam: Dry, Intact, Normal Color Additional comments: left foot wound is dry Assessment and Plan (1) Syncope Status: Acute (2) UTI (urinary tract infection) Status: Acute (3) NICOLLE (acute kidney injury) Status: Acute (4) Abnormal gait Status: Acute (5) CKD (chronic kidney disease) stage 2, GFR 60-89 ml/min Status: Acute (6) Chest pain Status: Acute (7) Chronic a-fib Status: Acute (8) Debility Status: Acute (9) Dehydration Status: Acute - Assessment and Plan (Free Text) Assessment: cont iv antibiotics consider JANEE IV antibiotic renewed
[2018-05-09] MEDS: Piperacillin/Tazobact 3.375 GM in Sodium Chloride 0.9% 100 ML IVPB SCH (17:00)
--- NOTE | 2018-05-09 18:29 | CP.PCM.PN ---
Subjective - Date & Time of Evaluation Date of Evaluation: 05/07/18 Time of Evaluation: 11:00 - Subjective Subjective: patient feels better Noted normal WBC. Noted low BP. Objective - Vital Signs/Intake and Output Vital Signs (last 24 hours): Temp Pulse Resp BP Pulse Ox 97.5 F L 61 20 107/70 97 05/09/18 15:47 05/09/18 15:47 05/09/18 15:47 05/09/18 15:47 05/09/18 15:47 Intake and Output: 05/09/18 05/09/18 06:59 18:59 Intake Total 1650 Balance 1650 - Medications Medications: Current Medications Cyanocobalamin (Vitamin B-12) 250 mcg PO DAILY [facility] Last Admin: 05/09/18 08:36 Dose: 250 mcg Digoxin (Digoxin) 0.125 mg PO TUTH BRIAN Digoxin (Digoxin) 0.125 mg PO FRI [facility] Last Admin: 05/07/18 09:20 Dose: 0.125 mg Digoxin (Digoxin) 0.125 mg PO SUN [facility] Last Admin: 05/09/18 08:35 Dose: 0.125 mg Digoxin (Lanoxin) 0.25 mg PO WED [facility] Digoxin (Lanoxin) 0.25 mg PO SAT [facility] Last Admin: 05/08/18 08:08 Dose: 0.25 mg Digoxin (Digoxin) 0.125 mg PO MON BRIAN Ergocalciferol (Drisdol 50,000 Intl Units Cap) 1 cap PO MO BRIAN Piperacillin Sod/Tazobactam (Sod 3.375 gm/ Sodium Chloride) 100 mls @ 100 mls/hr IVPB Q8 [facility]; Protocol Last Admin: 05/09/18 17:00 Dose: 100 mls/hr Levothyroxine Sodium (Synthroid) 250 mcg PO DAILY@0630 [facility] Last Admin: 05/09/18 06:18 Dose: 250 mcg Multivitamins/Minerals (Therapeutic-M Tab) 1 tab PO DAILY [facility] Last Admin: 05/09/18 08:36 Dose: 1 tab Rivaroxaban (Xarelto) 15 mg PO DAILY [facility]; Protocol Last Admin: 05/09/18 08:36 Dose: 15 mg Tamsulosin HCl (Flomax) 0.4 mg PO DAILY [facility] Last Admin: 05/09/18 08:36 Dose: 0.4 mg - Labs Labs: 05/09/18 04:25 05/09/18 04:25 PT 23.5 Seconds (9.8-13.1) H 05/06/18 00:05 INR 2.1 05/06/18 00:05 APTT 35.4 Seconds (25.6-37.1) 05/06/18 00:05 - Head Exam Head Exam: NORMAL INSPECTION - Eye Exam Eye Exam: Normal appearance - ENT Exam ENT Exam: Mucous Membranes Moist - Respiratory Exam Respiratory Exam: Decreased Breath Sounds - Cardiovascular Exam Cardiovascular Exam: REGULAR RHYTHM - GI/Abdominal Exam GI & Abdominal Exam: Soft Assessment and Plan (1) Bacteremia Status: Acute (2) Orthostatic hypotension Status: Acute (3) Syncope Status: Acute - Assessment and Plan (Free Text) Plan: Cont meds Cont iv antibiotics check BP iv fluids
[2018-05-10] MEDS: Piperacillin/Tazobact 3.375 GM in Sodium Chloride 0.9% 100 ML IVPB SCH ×3 (00:50→16:38)
[2018-05-10 05:50] LABS: BASO # 0.1 K/uL (0.0-0.2); BASO % 0.9 % (0.0-2.0); EOS # 0.3 K/uL (0.0-0.7); EOS % 2.9 % (0.0-4.0); HEMOGLOBIN 12.2 g/dL (12.0-18.0); LYMPH # 2.5 K/uL (1.0-4.3); LYMPH % 25.6 % (20.0-40.0); MEAN CELL VOLUME 93.7 fl (80.0-94.0); MEAN CORPUSCULAR HEMOGLOBIN 31.6 pg (27.0-31.0); MEAN CORPUSCULAR HGB CONC 33.8 g/dL (33.0-37.0); MEAN PLATELET VOLUME 8.6 fl (7.2-11.7); MONO # 0.9 K/uL (0.0-0.8); MONO % 8.8 % (0.0-10.0); NEUT # 6.1 K/uL (1.8-7.0); NEUT % 61.8 % (50.0-75.0); NRBC % 0.1 % (0.0-0.0); RBC 3.85 Mil/uL (4.40-5.90); RED CELL DISTRIBUTION WIDTH 14.1 % (11.5-14.5); WHITE BLOOD COUNT 9.8 K/uL (4.8-10.8)
[2018-05-10] MEDS: Levothyroxine 75 MCG TAB PO SCH (06:06)
[2018-05-10 06:07] LABS: BLOOD UREA NITROGEN 21 mg/dl (9-20); GFR NON-AFRICAN AMERICAN > 60
[2018-05-10 06:08] LABS: ALB/GLOB RATIO 0.8 (1.0-2.1); ALBUMIN 2.8 g/dL (3.5-5.0); ALT/SGPT 26 U/L (21-72); AST/SGOT 28 U/L (17-59); CALCIUM 9.2 mg/dL (8.4-10.2)
[2018-05-10] MEDS: Digoxin 125 mcg (0.125 mg) Tab PO SCH (08:53)
[2018-05-10] MEDS: Multivitamin With Minerals Tab PO SCH (08:55)
[2018-05-10] MEDS: CYANOCOBALAMIN (VITAMIN B-12) 250 MCG TABLET PO SCH (08:55)
--- NOTE | 2018-05-10 11:07 | CP.PCM.PN ---
Subjective - Date & Time of Evaluation Date of Evaluation: 05/10/18 Time of Evaluation: 08:00 - Subjective Subjective: alert awake no CP or SOB blood cultures positive cultures from foot also + for JANEE in am Objective - Vital Signs/Intake and Output Vital Signs (last 24 hours): Temp Pulse Resp BP Pulse Ox 97.7 F 62 18 125/80 93 L 05/10/18 07:58 05/10/18 09:00 05/10/18 07:58 05/10/18 07:58 05/10/18 07:58 - Medications Medications: Current Medications Cyanocobalamin (Vitamin B-12) 250 mcg PO DAILY [facility] Last Admin: 05/10/18 08:55 Dose: 250 mcg Digoxin (Digoxin) 0.125 mg PO TUTH BRIAN Digoxin (Digoxin) 0.125 mg PO FRI [facility] Last Admin: 05/07/18 09:20 Dose: 0.125 mg Digoxin (Digoxin) 0.125 mg PO SUN [facility] Last Admin: 05/09/18 08:35 Dose: 0.125 mg Digoxin (Lanoxin) 0.25 mg PO WED BRIAN Digoxin (Lanoxin) 0.25 mg PO SAT [facility] Last Admin: 05/08/18 08:08 Dose: 0.25 mg Digoxin (Digoxin) 0.125 mg PO MON [facility] Last Admin: 05/10/18 08:53 Dose: 0.125 mg Ergocalciferol (Drisdol 50,000 Intl Units Cap) 1 cap PO MO BRIAN Piperacillin Sod/Tazobactam (Sod 3.375 gm/ Sodium Chloride) 100 mls @ 100 mls/hr IVPB Q8 [facility]; Protocol Last Admin: 05/10/18 08:58 Dose: 100 mls/hr Levothyroxine Sodium (Synthroid) 225 mcg PO DAILY@0630 [facility] Last Admin: 05/10/18 06:06 Dose: 225 mcg Multivitamins/Minerals (Therapeutic-M Tab) 1 tab PO DAILY [facility] Last Admin: 05/10/18 08:55 Dose: 1 tab Rivaroxaban (Xarelto) 15 mg PO DAILY [facility]; Protocol Last Admin: 05/10/18 08:55 Dose: 15 mg Tamsulosin HCl (Flomax) 0.4 mg PO DAILY [facility] Last Admin: 05/10/18 08:55 Dose: 0.4 mg - Labs Labs: 05/10/18 04:20 05/10/18 04:20 PT 23.5 Seconds (9.8-13.1) H 05/06/18 00:05 INR 2.1 05/06/18 00:05 APTT 35.4 Seconds (25.6-37.1) 05/06/18 00:05 - Constitutional Appears: Non-toxic, Chronically Ill - Head Exam Head Exam: NORMOCEPHALIC - Eye Exam Eye Exam: absent: Scleral icterus - ENT Exam ENT Exam: Mucous Membranes Dry - Neck Exam Neck Exam: absent: Lymphadenopathy - Respiratory Exam Respiratory Exam: Decreased Breath Sounds - Cardiovascular Exam Cardiovascular Exam: REGULAR RHYTHM - GI/Abdominal Exam GI & Abdominal Exam: Distended, Soft - Rectal Exam Rectal Exam: Deferred - Exam Exam: NORMAL INSPECTION - Extremities Exam Extremities Exam: Pedal Edema Additional comments: left foot ulcer + - Back Exam Back Exam: absent: CVA tenderness (L), CVA tenderness (R) - Neurological Exam Neurological Exam: Alert, Awake, Oriented x3 - Psychiatric Exam Psychiatric exam: Depressed - Skin Skin Exam: Dry Assessment and Plan (1) Syncope Status: Acute (2) UTI (urinary tract infection) Status: Acute (3) NICOLLE (acute kidney injury) Status: Acute (4) Abnormal gait Status: Acute (5) CKD (chronic kidney disease) stage 2, GFR 60-89 ml/min Status: Acute (6) Chest pain Status: Acute (7) Chronic a-fib Status: Acute (8) Debility Status: Acute (9) Dehydration Status: Acute - Assessment and Plan (Free Text) Assessment: bacteremia Osteomyelitis sepsis syncope recurrent falls cont IV rx JANEE to r/o endocarditis
--- NOTE | 2018-05-10 11:08 | CP.PCM.PCO ---
Physician Communication Note - Physician Communication Note Physician Communication Note: plan for JANEE in am w/ ; keep npo pastmn
[2018-05-10] MEDS: Ergocalciferol 50,000 Intl Units Cap PO SCH (11:55)
[2018-05-10] MEDS ORDERED: Povidone Iodine Topical 10% Sol ONE (14:03)
--- NOTE | 2018-05-10 14:03 | CP.PCM.PN ---
Subjective - Date & Time of Evaluation Date of Evaluation: 05/10/18 Time of Evaluation: 14:02 - Subjective Subjective: +ve MSSA bacteremia hx obtained from grand-daughter V-paced echo pending Objective - Vital Signs/Intake and Output Vital Signs (last 24 hours): Temp Pulse Resp BP Pulse Ox 97.5 F L 60 18 106/69 95 05/10/18 12:00 05/10/18 12:00 05/10/18 12:00 05/10/18 12:00 05/10/18 12:00 - Medications Medications: Current Medications Cyanocobalamin (Vitamin B-12) 250 mcg PO DAILY [facility] Last Admin: 05/10/18 08:55 Dose: 250 mcg Digoxin (Digoxin) 0.125 mg PO TUTH [facility] Digoxin (Digoxin) 0.125 mg PO FRI [facility] Last Admin: 05/07/18 09:20 Dose: 0.125 mg Digoxin (Digoxin) 0.125 mg PO SUN [facility] Last Admin: 05/09/18 08:35 Dose: 0.125 mg Digoxin (Lanoxin) 0.25 mg PO WED [facility] Digoxin (Lanoxin) 0.25 mg PO SAT [facility] Last Admin: 05/08/18 08:08 Dose: 0.25 mg Digoxin (Digoxin) 0.125 mg PO MON [facility] Last Admin: 05/10/18 08:53 Dose: 0.125 mg Ergocalciferol (Drisdol 50,000 Intl Units Cap) 1 cap PO MO [facility] Last Admin: 05/10/18 11:55 Dose: 1 cap Piperacillin Sod/Tazobactam (Sod 3.375 gm/ Sodium Chloride) 100 mls @ 100 mls/hr IVPB Q8 [facility]; Protocol Last Admin: 05/10/18 08:58 Dose: 100 mls/hr Levothyroxine Sodium (Synthroid) 225 mcg PO DAILY@0630 [facility] Last Admin: 05/10/18 06:06 Dose: 225 mcg Multivitamins/Minerals (Therapeutic-M Tab) 1 tab PO DAILY [facility] Last Admin: 05/10/18 08:55 Dose: 1 tab Rivaroxaban (Xarelto) 15 mg PO DAILY [facility]; Protocol Last Admin: 05/10/18 08:55 Dose: 15 mg Tamsulosin HCl (Flomax) 0.4 mg PO DAILY [facility] Last Admin: 05/10/18 08:55 Dose: 0.4 mg - Labs Labs: 03/25/19 04:20 05/10/18 04:20 PT 23.5 Seconds (9.8-13.1) H 05/06/18 00:05 INR 2.1 05/06/18 00:05 APTT 35.4 Seconds (25.6-37.1) 05/06/18 00:05 - Constitutional Appears: Well - Head Exam Head Exam: ATRAUMATIC, NORMAL INSPECTION, NORMOCEPHALIC - Eye Exam Eye Exam: EOMI, Normal appearance, PERRL Pupil Exam: NORMAL ACCOMODATION, PERRL - ENT Exam ENT Exam: Mucous Membranes Moist, Normal Exam - Neck Exam Neck Exam: Full ROM, Normal Inspection. absent: Lymphadenopathy - Respiratory Exam Respiratory Exam: Clear to Ausculation Bilateral, NORMAL BREATHING PATTERN - Cardiovascular Exam Cardiovascular Exam: REGULAR RHYTHM, +S1, +S2. absent: Murmur - GI/Abdominal Exam GI & Abdominal Exam: Soft, Normal Bowel Sounds. absent: Tenderness - Extremities Exam Extremities Exam: Full ROM, Normal Capillary Refill, Normal Inspection. absent: Joint Swelling, Pedal Edema - Back Exam Back Exam: NORMAL INSPECTION - Neurological Exam Neurological Exam: Alert, Awake, CN II-XII Intact, Normal Gait, Oriented x3 - Psychiatric Exam Psychiatric exam: Normal Affect, Normal Mood - Skin Skin Exam: Dry, Intact, Normal Color, Warm Assessment and Plan (1) Bacteremia Assessment & Plan: plan for JANEE if recurrent blood cx +ve Status: Acute (2) Syncope Assessment & Plan: Echo pending ischemic evaluation Status: Acute (3) UTI (urinary tract infection) Status: Acute (4) Abnormal gait Status: Acute (5) Chronic a-fib Status: Acute
--- NOTE | 2018-05-10 16:40 | CP.PCM.PN ---
Subjective - Date & Time of Evaluation Date of Evaluation: 05/10/18 Time of Evaluation: 16:40 - Subjective Subjective: Podiatry Consult Note: Dr. Davenport Patient seen and evaluated for R submetatarsal 5 ulceration and L preulcerative submetatarsal 5 lesion. Patient states that his R foot hurts more than L. He denies any additional pedal complaints at this time. Denies nausea/vomiting/fever. Objective - Vital Signs/Intake and Output Vital Signs (last 24 hours): Temp Pulse Resp BP Pulse Ox 97.8 F 60 20 106/69 95 05/10/18 16:02 05/10/18 16:02 05/10/18 16:02 05/10/18 16:02 05/10/18 16:02 - Medications Medications: Current Medications Cyanocobalamin (Vitamin B-12) 250 mcg PO DAILY [facility] Last Admin: 05/10/18 08:55 Dose: 250 mcg Digoxin (Digoxin) 0.125 mg PO TUTH [facility] Digoxin (Digoxin) 0.125 mg PO FRI [facility] Last Admin: 05/07/18 09:20 Dose: 0.125 mg Digoxin (Digoxin) 0.125 mg PO SUN [facility] Last Admin: 05/09/18 08:35 Dose: 0.125 mg Digoxin (Lanoxin) 0.25 mg PO WED BRIAN Digoxin (Lanoxin) 0.25 mg PO SAT [facility] Last Admin: 05/08/18 08:08 Dose: 0.25 mg Digoxin (Digoxin) 0.125 mg PO MON [facility] Last Admin: 05/10/18 08:53 Dose: 0.125 mg Ergocalciferol (Drisdol 50,000 Intl Units Cap) 1 cap PO MO [facility] Last Admin: 05/10/18 11:55 Dose: 1 cap Piperacillin Sod/Tazobactam (Sod 3.375 gm/ Sodium Chloride) 100 mls @ 100 mls/hr IVPB Q8 [facility]; Protocol Last Admin: 05/10/18 16:38 Dose: 100 mls/hr Levothyroxine Sodium (Synthroid) 225 mcg PO DAILY@0630 [facility] Last Admin: 05/10/18 06:06 Dose: 225 mcg Multivitamins/Minerals (Therapeutic-M Tab) 1 tab PO DAILY [facility] Last Admin: 05/10/18 08:55 Dose: 1 tab Rivaroxaban (Xarelto) 15 mg PO DAILY [facility]; Protocol Last Admin: 05/10/18 08:55 Dose: 15 mg Tamsulosin HCl (Flomax) 0.4 mg PO DAILY [facility] Last Admin: 05/10/18 08:55 Dose: 0.4 mg - Labs Labs: 05/10/18 04:20 05/10/18 04:20 PT 23.5 Seconds (9.8-13.1) H 05/06/18 00:05 INR 2.1 05/06/18 00:05 APTT 35.4 Seconds (25.6-37.1) 05/06/18 00:05 - Constitutional Appears: Non-toxic, No Acute Distress - Head Exam Head Exam: ATRAUMATIC, NORMOCEPHALIC - Extremities Exam Additional comments: Vasc: DP and PT nonpalpable, temperature gradient cool to cool, CFT <4 seconds to the digits, edema noted to the LE bilaterally Ortho: MMT is 5/5 in all four compartments, tenderness noted to palpation surrounding ulceration site Neuro: Gross sensation intact, protective sensation diminished Derm: Ulceration secondary to pressure appreciated to the R submetatarsal 5 with no exposed bone. No drainage appreciated with hyperkeratotic rim. No purulence, no erythema, no cellulitis, no clinical signs of infection. L submetatarsal 5 pre-ulcerative lesion appreciated. - Neurological Exam Neurological Exam: Alert, Awake, Oriented x3 - Psychiatric Exam Psychiatric exam: Normal Affect, Normal Mood Assessment and Plan - Assessment and Plan (Free Text) Assessment: 82 year old male patient with PMHx of Afib, CAD, CHF, Hypothyroidism, seen and evaluated for R submetatarsal 5 ulceration and L preulcerative submetatarsal 5 lesion secondary to pressure Plan: Patient was examined and evaluated at bedside Charts, labs, vitals reviewed: WBC 8.1, afebrile R foot x-ray ordered; Slight cortical irregularity of the lateral aspect of the 5th metatarsal. Possibility of underlying OM cannot be excluded R foot wound culture taken; ecoli, staph aureus F/u Vasc reccs F/u ID reccs Bactroban ordered Bone scan ordered to r/o OM 5th met R Ulceration cleansed, dressed with optifoam Will continue to follow
--- NOTE | 2018-05-10 16:43 | PQF ---
PROVIDER RESPONSE TEXT: Provider was unable to determine a response for this query. REVIEWER QUERY TEXT: CHF Acuity and Type Admitted for Syncope . Preserved EF Congestive Heart Failure is documented in the Medical Record. Please document the acuity (includes probable or suspected) Such as: Acuity: -- Acute -- Chronic -- Acute on chronic -- Other, please specify Also please document the underlying cause of the CHF (includes probable or suspected) The patient's Clinical Indicators include: PMH: Preserved EF CHF. CXR: Interval increased pulmonary venous congestion. Interval increase conspicuity and/or interval i ncreased size of a currently still small left pleural effusion. Regional subsegmental coalescent ate lectatic changes here inferred. Cardiomegaly-as before. Query created by: Estephanie Singh on 05/07/2018 9:19 AM Electronically signed by: Sandra Howard 05/10/2018 4:40 PM
[2018-05-10] MEDS: Mupirocin 2% Oint 1GM UD TOP SCH (17:25)
--- NOTE | 2018-05-10 19:40 | CP.PCM.PN ---
Subjective - Date & Time of Evaluation Date of Evaluation: 05/10/18 Time of Evaluation: 10:00 - Subjective Subjective: patient seen and examined at bedside. Interim events noted No complaints offered at this time denies cp/sob/fever/chills. available diagnostic data reviewed Review of Systems All systems: reviewed and no additional remarkable complaints except mentioned above Objective Vital Signs Stable - Constitutional Appears: Non-toxic, No Acute Distress Head Exam: NORMAL INSPECTION Eye Exam: Normal appearance Respiratory Exam: NORMAL BREATHING PATTERN Cardiovascular Exam: +S1, +S2 GI & Abdominal Exam: Soft Neurological Exam: Alert, Awake Psychiatric exam: Normal Affect, Normal Mood Skin Exam: Normal Color, Warm Assessment and Plan monitor vitals monitor labs Cont meds Cont tx consultants appreciated input pending ECHO/JANEE rest of plan as ordered Objective - Vital Signs/Intake and Output Vital Signs (last 24 hours): Temp Pulse Resp BP Pulse Ox 97.8 F 60 20 106/69 95 05/10/18 16:02 05/10/18 16:02 05/10/18 16:02 05/10/18 16:02 05/10/18 16:02 Intake and Output: 05/10/18 05/11/18 18:59 06:59 Intake Total 1400 Balance 1400 - Medications Medications: Current Medications Cyanocobalamin (Vitamin B-12) 250 mcg PO DAILY [facility] Last Admin: 05/10/18 08:55 Dose: 250 mcg Digoxin (Digoxin) 0.125 mg PO TUTH [facility] Digoxin (Digoxin) 0.125 mg PO FRI [facility] Last Admin: 05/07/18 09:20 Dose: 0.125 mg Digoxin (Digoxin) 0.125 mg PO SUN [facility] Last Admin: 05/09/18 08:35 Dose: 0.125 mg Digoxin (Lanoxin) 0.25 mg PO WED [facility] Digoxin (Lanoxin) 0.25 mg PO SAT [facility] Last Admin: 05/08/18 08:08 Dose: 0.25 mg Digoxin (Digoxin) 0.125 mg PO MON [facility] Last Admin: 05/10/18 08:53 Dose: 0.125 mg Ergocalciferol (Drisdol 50,000 Intl Units Cap) 1 cap PO MO [facility] Last Admin: 05/10/18 11:55 Dose: 1 cap Piperacillin Sod/Tazobactam (Sod 3.375 gm/ Sodium Chloride) 100 mls @ 100 mls/hr IVPB Q8 [facility]; Protocol Last Admin: 05/10/18 16:38 Dose: 100 mls/hr Levothyroxine Sodium (Synthroid) 225 mcg PO DAILY@0630 [facility] Last Admin: 05/10/18 06:06 Dose: 225 mcg Multivitamins/Minerals (Therapeutic-M Tab) 1 tab PO DAILY [facility] Last Admin: 05/10/18 08:55 Dose: 1 tab Mupirocin (Bactroban Ointment) 1 applic TOP BID [facility] Last Admin: 05/10/18 17:25 Dose: 1 applic Rivaroxaban (Xarelto) 15 mg PO DAILY [facility]; Protocol Last Admin: 05/10/18 08:55 Dose: 15 mg Tamsulosin HCl (Flomax) 0.4 mg PO DAILY [facility] Last Admin: 05/10/18 08:55 Dose: 0.4 mg - Labs Labs: 05/10/18 04:20 05/10/18 04:20 PT 23.5 Seconds (9.8-13.1) H 05/06/18 00:05 INR 2.1 05/06/18 00:05 APTT 35.4 Seconds (25.6-37.1) 05/06/18 00:05 Assessment and Plan (1) Bacteremia Status: Acute
--- NOTE | 2018-05-10 21:14 | CARD ---
APPROVED REPORT Date of service: 05/10/2018 EXAM: Two-dimensional and M-mode echocardiogram with Doppler and color Doppler. Other Information Quality : GoodRhythm : Pacemaker INDICATION Infection:Subacute bacterial endocarditis Surgery/Intervention Pacemaker: 2D DIMENSIONS IVSd1.25 (0.7-1.1cm)LVDd5.37 (3.9-5.9cm) LVOT Diameter2.11 (1.8-2.4cm)PWd1.28 (0.7-1.1cm) IVSs1.40 (0.8-1.2cm)LVDs3.08 (2.5-4.0cm) FS (%) 42.6 %PWs1.60 (0.8-1.2cm) M-Mode DIMENSIONS Left Atrium (MM)5.63 (2.5-4.0cm)IVSd1.03 (0.7-1.1cm) Aortic Root3.78 (2.2-3.7cm)LVDd5.69 (4.0-5.6cm) Aortic Cusp Exc.1.41 (1.5-2.0cm)PWd1.28 (0.7-1.1cm) IVSs1.78 cmFS (%) 48 % LVDs2.97 (2.0-3.8cm)PWs1.84 cm Aortic Valve AoV Peak Wzaywoey601.1cm/sAoV VTI41.8cmAO Peak GR.22mmHg LVOT Peak Sibchrrx38.3cm/sLVOT VTI15.35cmAO Mean GR.13mmHg TAMMY (VMAX)0.35zj0AVF (VTI)0.67cm2 Mitral Valve E/A ratio0.0 TDI E/Lateral E'0.0E/Medial E'0.0 Tricuspid Valve TR Peak [id number]/sRAP [id number] Peak Gr.23mmHg [id number] LEFT VENTRICLE The left ventricle is normal size. There is mild concentric left ventricular hypertrophy. The left ventricular systolic function is normal. The estimated ejection fraction is 55-60% No regional wall motion abnormalities noted.. The left ventricular diastolic function cannot be assessed due to underlying atrial fibrillation. No left ventricle thrombus noted on this study. There is no ventricular septal defect visualized. There is no left ventricular aneurysm. There is no mass noted in the left ventricle. RIGHT VENTRICLE The right ventricle is normal size. There is normal right ventricular wall thickness. The right ventricular systolic function is normal. There is pacing wire noted in right ventricle. ATRIA The left atrium is severely dilated. The right atrium size is dilated. The interatrial septum is intact with no evidence for an atrial septal defect. AORTIC VALVE The aortic valve is calcified. Mild aortic regurgitation is present. There is moderate aortic valvular stenosis. Peak aortic velocity is < 3 m/sec and calculated AV area is 1.25 cm2. There is no aortic valvular vegetation. MITRAL VALVE The mitral valve is normal in structure. There is no evidence of mitral valve prolapse. There is no mitral valve stenosis. There is mild mitral valve regurgitation noted. TRICUSPID VALVE The tricuspid valve is normal in structure. There is moderate tricuspid valve regurgitation noted. RVSP is calculated at 30 mm Hg. There is no tricuspid valve prolapse or vegetation. There is no tricuspid valve stenosis. PULMONIC VALVE The pulmonary valve is normal in structure. There is no pulmonic valvular regurgitation. There is no pulmonic valvular stenosis. GREAT VESSELS The aortic root is normal in size. The ascending aorta is normal in size. The pulmonary artery is normal. The IVC is normal in size and collapses >50% with inspiration. PERICARDIAL EFFUSION There is no pericardial effusion. There is no pleural effusion. <Conclusion> There is mild concentric left ventricular hypertrophy. The estimated ejection fraction is 55-60% The left ventricular diastolic function cannot be assessed due to underlying atrial fibrillation. There is pacing wire noted in right ventricle. The left atrium is severely dilated. The right atrium size is dilated. Mild aortic regurgitation is present. There is moderate aortic valvular stenosis. Peak aortic velocity is < 3 m/sec and calculated AV area is 1.25 cm2. There is mild mitral valve regurgitation noted. There is moderate tricuspid valve regurgitation noted. RVSP is calculated at 30 mm Hg. There is no obvious vegetation on this technically difficult study. Correlate clinically.
[2018-05-11] MEDS: Piperacillin/Tazobact 3.375 GM in Sodium Chloride 0.9% 100 ML IVPB SCH ×3 (00:21→17:23)
--- NOTE | 2018-05-11 02:08 | CP.PCM.PN ---
Subjective - Date & Time of Evaluation Date of Evaluation: 05/08/18 Time of Evaluation: 11:00 - Subjective Subjective: Pt seen and assessed at bedside. Eager to go home. No new complaints other than generalized weakness. Subjective Review of Systems: reviewed and no additional remarkable complaints except weakness. Objective Vital Signs Stable Appears: Non-toxic, No Acute Distress. Head Exam: NORMAL INSPECTION, normocephalic. Eye Exam: Normal appearance, PERRLA, EOMI. Respiratory Exam: NORMAL BREATHING PATTERN, breath sounds midlly diminished at bases. Cardiovascular Exam: +S1, +S2. GI & Abdominal Exam: Soft, non-tender, non-distended. Neurological Exam: Alert, Awake, Oriented with periods of forgetfulness. Psychiatric exam: Normal Affect, Normal Mood. Skin Exam: Normal Color, Warm, Dry. Assessment/Impression/Plan: 1.) UTI/Syncope -Consults appreciated input -monitor urine and blood cultures -continue IV antibiotics -PT/OT. -continue current tx. Objective - Vital Signs/Intake and Output Vital Signs (last 24 hours): Temp Pulse Resp BP Pulse Ox 98.1 F 60 18 124/78 97 05/11/18 00:34 05/11/18 00:34 05/11/18 00:34 05/11/18 00:34 05/11/18 00:34 Intake and Output: 05/10/18 05/11/18 18:59 06:59 Intake Total 1400 Balance 1400 - Medications Medications: Current Medications Cyanocobalamin (Vitamin B-12) 250 mcg PO DAILY [facility] Last Admin: 05/10/18 08:55 Dose: 250 mcg Digoxin (Digoxin) 0.125 mg PO TUTH [facility] Digoxin (Digoxin) 0.125 mg PO FRI [facility] Last Admin: 05/07/18 09:20 Dose: 0.125 mg Digoxin (Digoxin) 0.125 mg PO SUN [facility] Last Admin: 05/09/18 08:35 Dose: 0.125 mg Digoxin (Lanoxin) 0.25 mg PO WED [facility] Digoxin (Lanoxin) 0.25 mg PO SAT [facility] Last Admin: 05/08/18 08:08 Dose: 0.25 mg Digoxin (Digoxin) 0.125 mg PO MON [facility] Last Admin: 05/10/18 08:53 Dose: 0.125 mg Ergocalciferol (Drisdol 50,000 Intl Units Cap) 1 cap PO MO [facility] Last Admin: 05/10/18 11:55 Dose: 1 cap Piperacillin Sod/Tazobactam (Sod 3.375 gm/ Sodium Chloride) 100 mls @ 100 mls/hr IVPB Q8 [facility]; Protocol Last Admin: 05/11/18 00:21 Dose: 100 mls/hr Levothyroxine Sodium (Synthroid) 225 mcg PO DAILY@0630 [facility] Last Admin: 05/10/18 06:06 Dose: 225 mcg Multivitamins/Minerals (Therapeutic-M Tab) 1 tab PO DAILY [facility] Last Admin: 05/10/18 08:55 Dose: 1 tab Mupirocin (Bactroban Ointment) 1 applic TOP BID [facility] Last Admin: 05/10/18 17:25 Dose: 1 applic Rivaroxaban (Xarelto) 15 mg PO DAILY [facility]; Protocol Last Admin: 05/10/18 08:55 Dose: 15 mg Tamsulosin HCl (Flomax) 0.4 mg PO DAILY [facility] Last Admin: 05/10/18 08:55 Dose: 0.4 mg - Labs Labs: 05/10/18 04:20 05/10/18 04:20 PT 23.5 Seconds (9.8-13.1) H 05/06/18 00:05 INR 2.1 05/06/18 00:05 APTT 35.4 Seconds (25.6-37.1) 05/06/18 00:05 Assessment and Plan (1) UTI (urinary tract infection) Status: Acute (2) Syncope Status: Acute
--- NOTE | 2018-05-11 02:13 | CP.PCM.PN ---
Subjective - Date & Time of Evaluation Date of Evaluation: 05/09/18 Time of Evaluation: 11:00 - Subjective Subjective: Pt seen and assessed at bedside. No new complaints other than generalized weakness. Recent blood culture revealed MSSA, while the urine culture revealed Morganella Morganii. ID consult on board. Subjective Review of Systems: reviewed and no additional remarkable complaints except weakness. Objective Vital Signs Stable Appears: Non-toxic, No Acute Distress. Head Exam: NORMAL INSPECTION, normocephalic. Eye Exam: Normal appearance, PERRLA, EOMI. Respiratory Exam: NORMAL BREATHING PATTERN, breath sounds midlly diminished at bases. Cardiovascular Exam: +S1, +S2. GI & Abdominal Exam: Soft, non-tender, non-distended. Neurological Exam: Alert, Awake, Oriented with periods of forgetfulness. Psychiatric exam: Normal Affect, Normal Mood. Skin Exam: Normal Color, Warm, Dry. Assessment/Impression/Plan: 1.) UTI/Syncope -Consults appreciated input. -Blood cultures revealed growing MSSA, urine culture revealed Morganella Morganii. -For possible JANEE with cardiology. -continue IV antibiotics; monitor for leukocytosis. -PT/OT to improve strength. -continue current tx. Objective - Vital Signs/Intake and Output Vital Signs (last 24 hours): Temp Pulse Resp BP Pulse Ox 98.1 F 60 18 124/78 97 05/11/18 00:34 05/11/18 00:34 05/11/18 00:34 05/11/18 00:34 05/11/18 00:34 Intake and Output: 05/10/18 05/11/18 18:59 06:59 Intake Total 1400 Balance 1400 - Medications Medications: Current Medications Cyanocobalamin (Vitamin B-12) 250 mcg PO DAILY [facility] Last Admin: 05/10/18 08:55 Dose: 250 mcg Digoxin (Digoxin) 0.125 mg PO TUTH [facility] Digoxin (Digoxin) 0.125 mg PO FRI [facility] Last Admin: 05/07/18 09:20 Dose: 0.125 mg Digoxin (Digoxin) 0.125 mg PO SUN [facility] Last Admin: 05/09/18 08:35 Dose: 0.125 mg Digoxin (Lanoxin) 0.25 mg PO WED [facility] Digoxin (Lanoxin) 0.25 mg PO SAT [facility] Last Admin: 05/08/18 08:08 Dose: 0.25 mg Digoxin (Digoxin) 0.125 mg PO MON [facility] Last Admin: 05/10/18 08:53 Dose: 0.125 mg Ergocalciferol (Drisdol 50,000 Intl Units Cap) 1 cap PO MO [facility] Last Admin: 05/10/18 11:55 Dose: 1 cap Piperacillin Sod/Tazobactam (Sod 3.375 gm/ Sodium Chloride) 100 mls @ 100 mls/hr IVPB Q8 [facility]; Protocol Last Admin: 05/11/18 00:21 Dose: 100 mls/hr Levothyroxine Sodium (Synthroid) 225 mcg PO DAILY@0630 [facility] Last Admin: 05/10/18 06:06 Dose: 225 mcg Multivitamins/Minerals (Therapeutic-M Tab) 1 tab PO DAILY [facility] Last Admin: 05/10/18 08:55 Dose: 1 tab Mupirocin (Bactroban Ointment) 1 applic TOP BID [facility] Last Admin: 05/10/18 17:25 Dose: 1 applic Rivaroxaban (Xarelto) 15 mg PO DAILY [facility]; Protocol Last Admin: 05/10/18 08:55 Dose: 15 mg Tamsulosin HCl (Flomax) 0.4 mg PO DAILY [facility] Last Admin: 05/10/18 08:55 Dose: 0.4 mg - Labs Labs: 05/10/18 04:20 05/10/18 04:20 PT 23.5 Seconds (9.8-13.1) H 05/06/18 00:05 INR 2.1 05/06/18 00:05 APTT 35.4 Seconds (25.6-37.1) 05/06/18 00:05 Assessment and Plan (1) UTI (urinary tract infection) Status: Acute (2) Syncope Status: Acute
[2018-05-11] MEDS: Levothyroxine 75 MCG TAB PO SCH (06:49)
[2018-05-11] MEDS: Multivitamin With Minerals Tab PO SCH (09:02)
[2018-05-11] MEDS: CYANOCOBALAMIN (VITAMIN B-12) 250 MCG TABLET PO SCH (09:02)
[2018-05-11] MEDS: Mupirocin 2% Oint 1GM UD TOP SCH ×2 (09:02→17:23)
[2018-05-11] MEDS: Digoxin 125 mcg (0.125 mg) Tab PO SCH (09:24)
--- NOTE | 2018-05-11 12:49 | CP.PCM.PN ---
<Colleen Jama - Last Filed: 05/11/18 19:06> Subjective - Date & Time of Evaluation Date of Evaluation: 05/11/18 Time of Evaluation: 12:45 - Subjective Subjective: Colleen Jama, PGY-1, Cardiology Progress Note for Dr. Welch Patient was seen and examined at bedside. Patient had no acute overnight events. Patient denies any symptoms at this time. Objective - Vital Signs/Intake and Output Vital Signs (last 24 hours): Temp Pulse Resp BP Pulse Ox 97.4 F L 60 18 105/68 95 05/11/18 11:52 05/11/18 11:52 05/11/18 11:52 05/11/18 11:52 05/11/18 11:52 - Medications Medications: Current Medications Cyanocobalamin (Vitamin B-12) 250 mcg PO DAILY [facility] Last Admin: 05/11/18 09:02 Dose: 250 mcg Digoxin (Digoxin) 0.125 mg PO TUTH [facility] Last Admin: 05/11/18 09:24 Dose: Not Given Digoxin (Digoxin) 0.125 mg PO FRI [facility] Last Admin: 05/07/18 09:20 Dose: 0.125 mg Digoxin (Digoxin) 0.125 mg PO SUN [facility] Last Admin: 05/09/18 08:35 Dose: 0.125 mg Digoxin (Lanoxin) 0.25 mg PO WED [facility] Digoxin (Lanoxin) 0.25 mg PO SAT [facility] Last Admin: 05/08/18 08:08 Dose: 0.25 mg Digoxin (Digoxin) 0.125 mg PO MON [facility] Last Admin: 05/10/18 08:53 Dose: 0.125 mg Ergocalciferol (Drisdol 50,000 Intl Units Cap) 1 cap PO MO [facility] Last Admin: 05/10/18 11:55 Dose: 1 cap Piperacillin Sod/Tazobactam (Sod 3.375 gm/ Sodium Chloride) 100 mls @ 100 mls/hr IVPB Q8 [facility]; Protocol Last Admin: 05/11/18 09:03 Dose: 100 mls/hr Levothyroxine Sodium (Synthroid) 225 mcg PO DAILY@0630 [facility] Last Admin: 05/11/18 06:49 Dose: Not Given Multivitamins/Minerals (Therapeutic-M Tab) 1 tab PO DAILY [facility] Last Admin: 05/11/18 09:02 Dose: 1 tab Mupirocin (Bactroban Ointment) 1 applic TOP BID [facility] Last Admin: 05/11/18 09:02 Dose: 1 applic Rivaroxaban (Xarelto) 15 mg PO DAILY [facility]; Protocol Last Admin: 05/11/18 09:02 Dose: 15 mg Tamsulosin HCl (Flomax) 0.4 mg PO DAILY [facility] Last Admin: 05/11/18 09:02 Dose: 0.4 mg - Labs Labs: 05/10/18 04:20 05/10/18 04:20 PT 23.5 Seconds (9.8-13.1) H 05/06/18 00:05 INR 2.1 05/06/18 00:05 APTT 35.4 Seconds (25.6-37.1) 05/06/18 00:05 - Constitutional Appears: Well, Non-toxic, No Acute Distress - Head Exam Head Exam: ATRAUMATIC, NORMAL INSPECTION, NORMOCEPHALIC - Eye Exam Eye Exam: EOMI, PERRL - ENT Exam ENT Exam: Mucous Membranes Moist - Respiratory Exam Respiratory Exam: Clear to Ausculation Bilateral, NORMAL BREATHING PATTERN. absent: Rales, Rhonchi, Wheezes - Cardiovascular Exam Cardiovascular Exam: REGULAR RHYTHM, RRR, +S1, +S2, Murmur (LLSB holosystolic blowing murmur) - GI/Abdominal Exam GI & Abdominal Exam: Soft, Normal Bowel Sounds. absent: Tenderness - Extremities Exam Extremities Exam: Full ROM, Normal Capillary Refill, Normal Inspection - Neurological Exam Neurological Exam: Alert, Awake, CN II-XII Intact, Oriented x3 - Skin Additional comments: bilateral lower extremities warm and darkened Assessment and Plan - Assessment and Plan (Free Text) Assessment: Syncope HTN Paroxysmal Atrial fibrillation Status post pacemaker hypercholesterolemia hypothyroidism Plan: Syncope S. Aureus bacteremia 2/2 to UTI HTN Paroxysmal Atrial fibrillation Status post pacemaker Hypothyroidism EKG: ventricular paced rhythm Echocardiogram: LVEF of 55-60%, left ventricular diastolic fynction cannot be assessed due to underlying atrial fibrilation, pacing wire is in right ventricle, left atrium is severely dilated, right atrium is ilated, mild AR, moderate , mild MR, moderate TR with RVSP of 30, no obvious vegetation Carotid ultrasound: unremarkable Trop: 0.0630 TSH: 0.05 JANEE tomorrow to rule out vegetation as patient was positive for S. Aureus in blood cultures. Patient is now negative for blood culture for 3 days. Medications: Digoxin 0.125 mg daily Levothyroxine 225 mcg daily Xarelto 15 mg daily Flomax 0.4 mg daily Zosyn Q8 <Jeferson Welch - Last Filed: 05/12/18 15:24> Objective - Vital Signs/Intake and Output Vital Signs (last 24 hours): Temp Pulse Resp BP Pulse Ox 97.6 F 62 18 128/82 96 05/12/18 11:38 05/12/18 11:38 05/12/18 11:38 05/12/18 11:38 05/12/18 11:38 - Medications Medications: Current Medications Cyanocobalamin (Vitamin B-12) 250 mcg PO DAILY [facility] Last Admin: 05/12/18 10:45 Dose: 250 mcg Digoxin (Digoxin) 0.125 mg PO TUTH [facility] Last Admin: 05/11/18 09:24 Dose: Not Given Digoxin (Digoxin) 0.125 mg PO FRI [facility] Last Admin: 05/07/18 09:20 Dose: 0.125 mg Digoxin (Digoxin) 0.125 mg PO SUN [facility] Last Admin: 05/09/18 08:35 Dose: 0.125 mg Digoxin (Lanoxin) 0.25 mg PO WED [facility] Last Admin: 05/12/18 10:46 Dose: 0.25 mg Digoxin (Lanoxin) 0.25 mg PO SAT [facility] Last Admin: 05/08/18 08:08 Dose: 0.25 mg Digoxin (Digoxin) 0.125 mg PO MON [facility] Last Admin: 05/10/18 08:53 Dose: 0.125 mg Ergocalciferol (Drisdol 50,000 Intl Units Cap) 1 cap PO MO [facility] Last Admin: 05/10/18 11:55 Dose: 1 cap Piperacillin Sod/Tazobactam (Sod 3.375 gm/ Sodium Chloride) 100 mls @ 100 mls/hr IVPB Q8 [facility]; Protocol Last Admin: 05/12/18 08:22 Dose: 100 mls/hr Levothyroxine Sodium (Synthroid) 225 mcg PO DAILY@0630 [facility] Last Admin: 05/12/18 06:38 Dose: Not Given Multivitamins/Minerals (Therapeutic-M Tab) 1 tab PO DAILY [facility] Last Admin: 05/12/18 10:45 Dose: 1 tab Mupirocin (Bactroban Ointment) 1 applic TOP BID [facility] Last Admin: 05/12/18 08:23 Dose: 1 applic Rivaroxaban (Xarelto) 15 mg PO DAILY [facility]; Protocol Last Admin: 05/12/18 10:45 Dose: 15 mg Tamsulosin HCl (Flomax) 0.4 mg PO DAILY [facility] Last Admin: 05/12/18 10:46 Dose: 0.4 mg - Labs Labs: 05/10/18 04:20 05/10/18 04:20 PT 23.5 Seconds (9.8-13.1) H 05/06/18 00:05 INR 2.1 05/06/18 00:05 APTT 35.4 Seconds (25.6-37.1) 05/06/18 00:05 Assessment and Plan (1) Bacteremia Status: Acute (2) Syncope Status: Acute (3) UTI (urinary tract infection) Status: Acute (4) Abnormal gait Status: Acute (5) Chronic a-fib Status: Acute Attending/Attestation - Attestation I have personally seen and examined this patient.: Yes I have fully participated in the care of the patient.: Yes I have reviewed all pertinent clinical information, including history, physical exam and plan: Yes Notes (Text): 05/12/18 15:23 JANEE if blood cx +ve etiology of syncope unclear EKG - V-paced
--- NOTE | 2018-05-11 17:11 | NM ---
Date of service: 05/10/2018 PROCEDURE: Three-phase bone Scan HISTORY: r/o 5th met base OM COMPARISON: 05/08/2018. Right foot radiographs TECHNIQUE: Following administration of 24.6 miCu of Tc MDP three-phase bone scan performed attention right foot FINDINGS: Flow component: Symmetrical flow to the feet Blood pool component: No focal accumulation of radionuclide. Delayed images at 3:00: Degenerative changes left ankle. Other findings: None. IMPRESSION: No acute osseous findings. Specifically no evidence of acute osteomyelitis.
--- NOTE | 2018-05-11 21:09 | PQF ---
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 Preserved EF Congestive Heart Failure is documented in the Medical Record. Please document the acuity (includes probable or suspected) Such as: Acuity: -- Acute -- Chronic -- Acute on chronic -- Other, please specify The patient's Clinical Indicators include: PMH: Preserved EF CHF. CXR: Interval increased pulmonary venous congestion. Interval increase conspicuity and/or interval i ncreased size of a currently still small left pleural effusion. Regional subsegmental coalescent ate lectatic changes here inferred. Cardiomegaly-as before. Query created by: Estephanie Singh on 05/11/2018 6:39 AM Electronically signed by: Kirill Carrillo 05/11/2018 9:06 PM
[2018-05-12] MEDS: Piperacillin/Tazobact 3.375 GM in Sodium Chloride 0.9% 100 ML IVPB SCH ×3 (00:32→16:59)
[2018-05-12] MEDS: Levothyroxine 75 MCG TAB PO SCH (06:38)
[2018-05-12] MEDS: CYANOCOBALAMIN (VITAMIN B-12) 250 MCG TABLET PO SCH ×2 (08:22→10:45)
[2018-05-12] MEDS: Multivitamin With Minerals Tab PO SCH ×2 (08:22→10:45)
[2018-05-12] MEDS: Mupirocin 2% Oint 1GM UD TOP SCH ×2 (08:23→16:59)
[2018-05-12] MEDS: Digoxin 250 mcg (0.25 mg) Tab PO SCH ×2 (08:23→10:46)
--- NOTE | 2018-05-12 08:55 | CP.PCM.PN ---
Subjective - Date & Time of Evaluation Date of Evaluation: 05/12/18 Time of Evaluation: 08:54 - Subjective Subjective: Podiatry Consult Note: Dr. Davenport Patient seen and evaluated for R submetatarsal 5 ulceration and L preulcerative submetatarsal 5 lesion; stable. Patient states that his foot only causes pain when he ambulated. He denies any additional pedal complaints at this time. Denies nausea/vomiting/fever. Objective - Vital Signs/Intake and Output Vital Signs (last 24 hours): Temp Pulse Resp BP Pulse Ox 97.7 F 58 L 18 120/80 96 05/12/18 07:55 05/12/18 07:55 05/12/18 07:55 05/12/18 07:55 05/12/18 07:55 - Medications Medications: Current Medications Cyanocobalamin (Vitamin B-12) 250 mcg PO DAILY [facility] Last Admin: 05/12/18 08:22 Dose: Not Given Digoxin (Digoxin) 0.125 mg PO TUTH [facility] Last Admin: 05/11/18 09:24 Dose: Not Given Digoxin (Digoxin) 0.125 mg PO FRI [facility] Last Admin: 05/07/18 09:20 Dose: 0.125 mg Digoxin (Digoxin) 0.125 mg PO SUN [facility] Last Admin: 05/09/18 08:35 Dose: 0.125 mg Digoxin (Lanoxin) 0.25 mg PO WED [facility] Last Admin: 05/12/18 08:23 Dose: Not Given Digoxin (Lanoxin) 0.25 mg PO SAT [facility] Last Admin: 05/08/18 08:08 Dose: 0.25 mg Digoxin (Digoxin) 0.125 mg PO MON [facility] Last Admin: 05/10/18 08:53 Dose: 0.125 mg Ergocalciferol (Drisdol 50,000 Intl Units Cap) 1 cap PO MO [facility] Last Admin: 05/10/18 11:55 Dose: 1 cap Piperacillin Sod/Tazobactam (Sod 3.375 gm/ Sodium Chloride) 100 mls @ 100 mls/hr IVPB Q8 [facility]; Protocol Last Admin: 05/12/18 08:22 Dose: 100 mls/hr Levothyroxine Sodium (Synthroid) 225 mcg PO DAILY@0630 [facility] Last Admin: 05/12/18 06:38 Dose: Not Given Multivitamins/Minerals (Therapeutic-M Tab) 1 tab PO DAILY [facility] Last Admin: 05/12/18 08:22 Dose: Not Given Mupirocin (Bactroban Ointment) 1 applic TOP BID [facility] Last Admin: 05/12/18 08:23 Dose: 1 applic Rivaroxaban (Xarelto) 15 mg PO DAILY [facility]; Protocol Last Admin: 05/12/18 08:22 Dose: Not Given Tamsulosin HCl (Flomax) 0.4 mg PO DAILY [facility] Last Admin: 05/12/18 08:23 Dose: Not Given - Labs Labs: 05/10/18 04:20 05/10/18 04:20 PT 23.5 Seconds (9.8-13.1) H 05/06/18 00:05 INR 2.1 05/06/18 00:05 APTT 35.4 Seconds (25.6-37.1) 05/06/18 00:05 - Constitutional Appears: Non-toxic, No Acute Distress - Head Exam Head Exam: ATRAUMATIC, NORMOCEPHALIC - Extremities Exam Additional comments: Vasc: DP and PT nonpalpable, temperature gradient cool to cool, CFT <4 seconds to the digits, edema noted to the LE bilaterally Ortho: MMT is 5/5 in all four compartments, tenderness noted to palpation surrounding ulceration site Neuro: Gross sensation intact, protective sensation diminished Derm: Ulceration secondary to pressure appreciated to the R submetatarsal 5 with no exposed bone, stage II. No drainage appreciated with hyperkeratotic rim. No purulence, no erythema, no cellulitis, no clinical signs of infection. L submetatarsal 5 pre-ulcerative lesion appreciated, stage I . - Neurological Exam Neurological Exam: Alert, Awake, Oriented x3 - Psychiatric Exam Psychiatric exam: Normal Affect, Normal Mood - Skin Skin Exam: Warm Assessment and Plan - Assessment and Plan (Free Text) Assessment: 82 year old male patient with PMHx of Afib, CAD, CHF, Hypothyroidism, seen and evaluated for R submetatarsal 5 ulceration and L preulcerative submetatarsal 5 lesion secondary to pressure Plan: Patient was examined and evaluated at bedside Charts, labs, vitals reviewed: WBC 9.8, afebrile R foot x-ray ordered; Slight cortical irregularity of the lateral aspect of the 5th metatarsal. Possibility of underlying OM cannot be excluded R foot wound culture taken; ecoli, staph aureus F/u Vasc reccs F/u ID reccs Hyperkeratotic ulceration border debrided with a #15 blade without incident Bactroban ordered Bone scan ordered to r/o OM 5th met R; no evidence of OM Ulceration cleansed, dressed with optifoam Will continue to follow
--- NOTE | 2018-05-12 10:37 | CP.PCM.PN ---
<Collene Jama - Last Filed: 05/12/18 14:27> Subjective - Date & Time of Evaluation Date of Evaluation: 05/12/18 Time of Evaluation: 10:36 - Subjective Subjective: Colleen Jama, PGY-1, Cardiology Progress Note for Dr. Welch Patient was seen and examined at bedside. Patient had no acute overnight events. Patient denies any symptoms at this time. Patient's last syncopal episode was one week ago. Objective - Vital Signs/Intake and Output Vital Signs (last 24 hours): Temp Pulse Resp BP Pulse Ox 97.7 F 58 L 18 120/80 96 05/12/18 07:55 05/12/18 09:00 05/12/18 07:55 05/12/18 07:55 05/12/18 07:55 - Medications Medications: Current Medications Cyanocobalamin (Vitamin B-12) 250 mcg PO DAILY [facility] Last Admin: 05/12/18 08:22 Dose: Not Given Digoxin (Digoxin) 0.125 mg PO TUTH [facility] Last Admin: 05/11/18 09:24 Dose: Not Given Digoxin (Digoxin) 0.125 mg PO FRI [facility] Last Admin: 05/07/18 09:20 Dose: 0.125 mg Digoxin (Digoxin) 0.125 mg PO SUN [facility] Last Admin: 05/09/18 08:35 Dose: 0.125 mg Digoxin (Lanoxin) 0.25 mg PO WED [facility] Last Admin: 05/12/18 08:23 Dose: Not Given Digoxin (Lanoxin) 0.25 mg PO SAT [facility] Last Admin: 05/08/18 08:08 Dose: 0.25 mg Digoxin (Digoxin) 0.125 mg PO MON [facility] Last Admin: 05/10/18 08:53 Dose: 0.125 mg Ergocalciferol (Drisdol 50,000 Intl Units Cap) 1 cap PO MO [facility] Last Admin: 05/10/18 11:55 Dose: 1 cap Piperacillin Sod/Tazobactam (Sod 3.375 gm/ Sodium Chloride) 100 mls @ 100 mls/hr IVPB Q8 [facility]; Protocol Last Admin: 05/12/18 08:22 Dose: 100 mls/hr Levothyroxine Sodium (Synthroid) 225 mcg PO DAILY@0630 [facility] Last Admin: 05/12/18 06:38 Dose: Not Given Multivitamins/Minerals (Therapeutic-M Tab) 1 tab PO DAILY [facility] Last Admin: 05/12/18 08:22 Dose: Not Given Mupirocin (Bactroban Ointment) 1 applic TOP BID [facility] Last Admin: 05/12/18 08:23 Dose: 1 applic Rivaroxaban (Xarelto) 15 mg PO DAILY [facility]; Protocol Last Admin: 05/12/18 08:22 Dose: Not Given Tamsulosin HCl (Flomax) 0.4 mg PO DAILY [facility] Last Admin: 05/12/18 08:23 Dose: Not Given - Labs Labs: 05/10/18 04:20 05/10/18 04:20 PT 23.5 Seconds (9.8-13.1) H 05/06/18 00:05 INR 2.1 05/06/18 00:05 APTT 35.4 Seconds (25.6-37.1) 05/06/18 00:05 - Constitutional Appears: Well, Non-toxic, No Acute Distress - Head Exam Head Exam: ATRAUMATIC, NORMAL INSPECTION, NORMOCEPHALIC - Eye Exam Eye Exam: EOMI, PERRL - ENT Exam ENT Exam: Mucous Membranes Moist - Respiratory Exam Respiratory Exam: Clear to Ausculation Bilateral, NORMAL BREATHING PATTERN. absent: Rales, Rhonchi, Wheezes - Cardiovascular Exam Cardiovascular Exam: REGULAR RHYTHM, RRR, +S1, +S2, Murmur (LLSB holosystolic blowing murmur) - GI/Abdominal Exam GI & Abdominal Exam: Soft, Normal Bowel Sounds. absent: Tenderness - Extremities Exam Extremities Exam: Full ROM, Normal Capillary Refill, Normal Inspection - Neurological Exam Neurological Exam: Alert, Awake, CN II-XII Intact, Oriented x3 - Skin Additional comments: bilateral lower extremities warm and darkened Assessment and Plan - Assessment and Plan (Free Text) Assessment: Syncope HTN Paroxysmal Atrial fibrillation Status post pacemaker hypercholesterolemia hypothyroidism Plan: Syncope S. Aureus bacteremia 2/2 to UTI HTN Paroxysmal Atrial fibrillation Status post pacemaker Hypothyroidism EKG: ventricular paced rhythm Echocardiogram: LVEF of 55-60%, left ventricular diastolic fynction cannot be assessed due to underlying atrial fibrilation, pacing wire is in right ventricle, left atrium is severely dilated, right atrium is ilated, mild AR, moderate , mild MR, moderate TR with RVSP of 30, no obvious vegetation Carotid ultrasound: unremarkable Trop: 0.0630 TSH: 0.05 JANEE will not be done as patient is now negative for blood culture for 4 days. Will follow up orthostatic vitals, urine and serum osmolarity for further eval uation. Nuclear stress test to be done likely tomorrow Medications: Digoxin 0.125 mg daily Levothyroxine 225 mcg daily Xarelto 15 mg daily Flomax 0.4 mg daily Zosyn Q8 <Jeferson Welch - Last Filed: 05/12/18 15:23> Objective - Vital Signs/Intake and Output Vital Signs (last 24 hours): Temp Pulse Resp BP Pulse Ox 97.6 F 62 18 128/82 96 05/12/18 11:38 05/12/18 11:38 05/12/18 11:38 05/12/18 11:38 05/12/18 11:38 - Medications Medications: Current Medications Cyanocobalamin (Vitamin B-12) 250 mcg PO DAILY [facility] Last Admin: 05/12/18 10:45 Dose: 250 mcg Digoxin (Digoxin) 0.125 mg PO TUTH [facility] Last Admin: 05/11/18 09:24 Dose: Not Given Digoxin (Digoxin) 0.125 mg PO FRI [facility] Last Admin: 05/07/18 09:20 Dose: 0.125 mg Digoxin (Digoxin) 0.125 mg PO SUN [facility] Last Admin: 05/09/18 08:35 Dose: 0.125 mg Digoxin (Lanoxin) 0.25 mg PO WED [facility] Last Admin: 05/12/18 10:46 Dose: 0.25 mg Digoxin (Lanoxin) 0.25 mg PO SAT [facility] Last Admin: 05/08/18 08:08 Dose: 0.25 mg Digoxin (Digoxin) 0.125 mg PO MON [facility] Last Admin: 05/10/18 08:53 Dose: 0.125 mg Ergocalciferol (Drisdol 50,000 Intl Units Cap) 1 cap PO MO [facility] Last Admin: 05/10/18 11:55 Dose: 1 cap Piperacillin Sod/Tazobactam (Sod 3.375 gm/ Sodium Chloride) 100 mls @ 100 mls/hr IVPB Q8 [facility]; Protocol Last Admin: 05/12/18 08:22 Dose: 100 mls/hr Levothyroxine Sodium (Synthroid) 225 mcg PO DAILY@0630 [facility] Last Admin: 05/12/18 06:38 Dose: Not Given Multivitamins/Minerals (Therapeutic-M Tab) 1 tab PO DAILY [facility] Last Admin: 05/12/18 10:45 Dose: 1 tab Mupirocin (Bactroban Ointment) 1 applic TOP BID [facility] Last Admin: 05/12/18 08:23 Dose: 1 applic Rivaroxaban (Xarelto) 15 mg PO DAILY [facility]; Protocol Last Admin: 05/12/18 10:45 Dose: 15 mg Tamsulosin HCl (Flomax) 0.4 mg PO DAILY [facility] Last Admin: 05/12/18 10:46 Dose: 0.4 mg - Labs Labs: 05/10/18 04:20 05/10/18 04:20 PT 23.5 Seconds (9.8-13.1) H 05/06/18 00:05 INR 2.1 05/06/18 00:05 APTT 35.4 Seconds (25.6-37.1) 05/06/18 00:05 Assessment and Plan (1) Bacteremia Status: Acute (2) Syncope Status: Acute (3) UTI (urinary tract infection) Status: Acute (4) Abnormal gait Status: Acute (5) Chronic a-fib Status: Acute Attending/Attestation - Attestation I have personally seen and examined this patient.: Yes I have fully participated in the care of the patient.: Yes I have reviewed all pertinent clinical information, including history, physical exam and plan: Yes Notes (Text): 05/12/18 15:22 check digoxin levels stress test in am npo p mn Echo shows moderate ? severity
--- NOTE | 2018-05-12 11:27 | CP.PCM.PN ---
Subjective - Date & Time of Evaluation Date of Evaluation: 05/12/18 Time of Evaluation: 09:00 - Subjective Subjective: awake alert afebrile OOB to chair in NAD Objective - Vital Signs/Intake and Output Vital Signs (last 24 hours): Temp Pulse Resp BP Pulse Ox 97.7 F 58 L 18 120/80 96 05/12/18 07:55 05/12/18 09:00 05/12/18 07:55 05/12/18 07:55 05/12/18 07:55 - Medications Medications: Current Medications Cyanocobalamin (Vitamin B-12) 250 mcg PO DAILY [facility] Last Admin: 05/12/18 10:45 Dose: 250 mcg Digoxin (Digoxin) 0.125 mg PO TUTH [facility] Last Admin: 05/11/18 09:24 Dose: Not Given Digoxin (Digoxin) 0.125 mg PO FRI [facility] Last Admin: 05/07/18 09:20 Dose: 0.125 mg Digoxin (Digoxin) 0.125 mg PO SUN [facility] Last Admin: 05/09/18 08:35 Dose: 0.125 mg Digoxin (Lanoxin) 0.25 mg PO WED [facility] Last Admin: 05/12/18 10:46 Dose: 0.25 mg Digoxin (Lanoxin) 0.25 mg PO SAT [facility] Last Admin: 05/08/18 08:08 Dose: 0.25 mg Digoxin (Digoxin) 0.125 mg PO MON [facility] Last Admin: 05/10/18 08:53 Dose: 0.125 mg Ergocalciferol (Drisdol 50,000 Intl Units Cap) 1 cap PO MO [facility] Last Admin: 05/10/18 11:55 Dose: 1 cap Piperacillin Sod/Tazobactam (Sod 3.375 gm/ Sodium Chloride) 100 mls @ 100 mls/hr IVPB Q8 [facility]; Protocol Last Admin: 05/12/18 08:22 Dose: 100 mls/hr Levothyroxine Sodium (Synthroid) 225 mcg PO DAILY@0630 [facility] Last Admin: 05/12/18 06:38 Dose: Not Given Multivitamins/Minerals (Therapeutic-M Tab) 1 tab PO DAILY [facility] Last Admin: 05/12/18 10:45 Dose: 1 tab Mupirocin (Bactroban Ointment) 1 applic TOP BID [facility] Last Admin: 05/12/18 08:23 Dose: 1 applic Rivaroxaban (Xarelto) 15 mg PO DAILY [facility]; Protocol Last Admin: 05/12/18 10:45 Dose: 15 mg Tamsulosin HCl (Flomax) 0.4 mg PO DAILY [facility] Last Admin: 05/12/18 10:46 Dose: 0.4 mg - Labs Labs: 05/10/18 04:20 05/10/18 04:20 PT 23.5 Seconds (9.8-13.1) H 05/06/18 00:05 INR 2.1 05/06/18 00:05 APTT 35.4 Seconds (25.6-37.1) 05/06/18 00:05 - Constitutional Appears: No Acute Distress, Chronically Ill - Head Exam Head Exam: ATRAUMATIC, NORMAL INSPECTION, NORMOCEPHALIC - Eye Exam Eye Exam: EOMI, Normal appearance, PERRL Pupil Exam: NORMAL ACCOMODATION, PERRL - ENT Exam ENT Exam: Mucous Membranes Moist, Normal Exam - Neck Exam Neck Exam: Full ROM, Normal Inspection. absent: Lymphadenopathy - Respiratory Exam Respiratory Exam: Clear to Ausculation Bilateral, NORMAL BREATHING PATTERN - Cardiovascular Exam Cardiovascular Exam: REGULAR RHYTHM, +S1, +S2. absent: Murmur - GI/Abdominal Exam GI & Abdominal Exam: Soft, Normal Bowel Sounds. absent: Tenderness - Rectal Exam Rectal Exam: Deferred - Exam Exam: NORMAL INSPECTION - Extremities Exam Extremities Exam: Full ROM, Normal Capillary Refill, Normal Inspection. absent: Joint Swelling, Pedal Edema - Back Exam Back Exam: NORMAL INSPECTION - Neurological Exam Neurological Exam: Alert, Awake, CN II-XII Intact, Normal Gait, Oriented x3 - Psychiatric Exam Psychiatric exam: Normal Affect, Normal Mood - Skin Skin Exam: Dry, Intact, Normal Color Additional comments: + foot ulcer dry Assessment and Plan (1) Syncope Status: Acute (2) UTI (urinary tract infection) Status: Acute (3) NICOLLE (acute kidney injury) Status: Acute (4) Abnormal gait Status: Acute (5) CKD (chronic kidney disease) stage 2, GFR 60-89 ml/min Status: Acute (6) Chest pain Status: Acute (7) Chronic a-fib Status: Acute (8) Debility Status: Acute (9) Dehydration Status: Acute - Assessment and Plan (Free Text) Assessment: bone scan neg for OM IV antibiotic in progress cultures noted await JANEE cont rx
[2018-05-13] MEDS: Piperacillin/Tazobact 3.375 GM in Sodium Chloride 0.9% 100 ML IVPB SCH ×3 (01:18→17:18)
[2018-05-13] MEDS: Levothyroxine 75 MCG TAB PO SCH (06:11)
[2018-05-13] MEDS: Mupirocin 2% Oint 1GM UD TOP SCH ×2 (08:42→17:17)
[2018-05-13] MEDS: CYANOCOBALAMIN (VITAMIN B-12) 250 MCG TABLET PO SCH (08:43)
[2018-05-13] MEDS: Multivitamin With Minerals Tab PO SCH (08:43)
[2018-05-13] MEDS: Digoxin 125 mcg (0.125 mg) Tab PO SCH (08:59)
--- NOTE | 2018-05-13 09:27 | CP.PCM.PN ---
Subjective - Date & Time of Evaluation Date of Evaluation: 05/13/18 Time of Evaluation: 09:23 - Subjective Subjective: Colleen Jama, PGY-1, Cardiology Progress Note for Dr. Welch Patient was seen and examined at bedside. Patient had no acute overnight events. Patient denies any symptoms at this time. Patient's last syncopal episode was one week ago. Objective - Vital Signs/Intake and Output Vital Signs (last 24 hours): Temp Pulse Resp BP Pulse Ox 98.0 F 60 18 102/65 96 05/13/18 07:41 05/13/18 09:00 05/13/18 07:41 05/13/18 07:41 05/13/18 07:41 - Medications Medications: Current Medications Cyanocobalamin (Vitamin B-12) 250 mcg PO DAILY [facility] Last Admin: 05/13/18 08:43 Dose: 250 mcg Digoxin (Digoxin) 0.125 mg PO TUTH [facility] Last Admin: 05/13/18 08:59 Dose: 0.125 mg Digoxin (Digoxin) 0.125 mg PO FRI [facility] Last Admin: 05/07/18 09:20 Dose: 0.125 mg Digoxin (Digoxin) 0.125 mg PO SUN [facility] Last Admin: 05/09/18 08:35 Dose: 0.125 mg Digoxin (Lanoxin) 0.25 mg PO WED [facility] Last Admin: 05/12/18 10:46 Dose: 0.25 mg Digoxin (Lanoxin) 0.25 mg PO SAT [facility] Last Admin: 05/08/18 08:08 Dose: 0.25 mg Digoxin (Digoxin) 0.125 mg PO MON [facility] Last Admin: 05/10/18 08:53 Dose: 0.125 mg Ergocalciferol (Drisdol 50,000 Intl Units Cap) 1 cap PO MO [facility] Last Admin: 05/10/18 11:55 Dose: 1 cap Piperacillin Sod/Tazobactam (Sod 3.375 gm/ Sodium Chloride) 100 mls @ 100 mls/hr IVPB Q8 [facility]; Protocol Last Admin: 05/13/18 08:43 Dose: 100 mls/hr Levothyroxine Sodium (Synthroid) 225 mcg PO DAILY@0630 [facility] Last Admin: 05/13/18 06:11 Dose: 225 mcg Multivitamins/Minerals (Therapeutic-M Tab) 1 tab PO DAILY [facility] Last Admin: 05/13/18 08:43 Dose: 1 tab Mupirocin (Bactroban Ointment) 1 applic TOP BID [facility] Last Admin: 05/13/18 08:42 Dose: 1 applic Rivaroxaban (Xarelto) 15 mg PO DAILY [facility]; Protocol Last Admin: 05/13/18 08:43 Dose: 15 mg Tamsulosin HCl (Flomax) 0.4 mg PO DAILY [facility] Last Admin: 05/13/18 08:42 Dose: 0.4 mg - Labs Labs: 05/10/18 04:20 05/10/18 04:20 PT 23.5 Seconds (9.8-13.1) H 05/06/18 00:05 INR 2.1 05/06/18 00:05 APTT 35.4 Seconds (25.6-37.1) 05/06/18 00:05 - Constitutional Appears: Well, Non-toxic, No Acute Distress - Head Exam Head Exam: ATRAUMATIC, NORMAL INSPECTION, NORMOCEPHALIC - Eye Exam Eye Exam: EOMI, PERRL - ENT Exam ENT Exam: Mucous Membranes Moist - Respiratory Exam Respiratory Exam: Clear to Ausculation Bilateral, NORMAL BREATHING PATTERN. absent: Rales, Rhonchi, Wheezes - Cardiovascular Exam Cardiovascular Exam: REGULAR RHYTHM, RRR, +S1, +S2, Murmur (LLSB holosystolic blowing murmur) - GI/Abdominal Exam GI & Abdominal Exam: Soft, Normal Bowel Sounds. absent: Tenderness - Extremities Exam Extremities Exam: Full ROM, Normal Capillary Refill, Normal Inspection - Neurological Exam Neurological Exam: Alert, Awake, CN II-XII Intact, Oriented x3 - Skin Additional comments: bilateral lower extremities warm and darkened Assessment and Plan (1) Bacteremia Assessment & Plan: Likely 2/2 to UTI vs. cellulitis Patient was positive for S. Aureus on blood culture on 05/05/18 Patient has been negative for blood culture for 5 days since 05/07/18 Continue with zosyn Status: Acute (2) Syncope Assessment & Plan: Echocardiogram from 05/10: LVEF of 55-60%, severely dilated LA, dilated RA, mild AR, moderate aortic stenosis with AV are of 1.25 cm2, mild MR, moderate TR, RVSP of 30 Carotid ultrasound: no significant stenosis noted EKG on admission: ventricular paced rhythm with HR of 69 Significant orthostatic vital signs with drop of systolic blood pressure of more than 20 from lying to standing. Echocardiogram shows significant finding of moderate aortic stenosis which could cause the syncopal episodes. Urine osmolarity was high, likely signifying patient is dehydrated As severe could be contributing to patient's episodes of syncope, will plan for cardiac catheterization on Thursday Status: Acute (3) UTI (urinary tract infection) Assessment & Plan: UCx positive for Morg Morganii. Continue with antibiotics Status: Acute
[2018-05-13 11:02] LABS: HEMOGLOBIN 11.8 g/dL (12.0-18.0); MEAN CELL VOLUME 94.1 fl (80.0-94.0); MEAN CORPUSCULAR HEMOGLOBIN 30.8 pg (27.0-31.0); MEAN CORPUSCULAR HGB CONC 32.7 g/dL (33.0-37.0); RBC 3.83 Mil/uL (4.40-5.90); RED CELL DISTRIBUTION WIDTH 14.3 % (11.5-14.5); WHITE BLOOD COUNT 12.2 K/uL (4.8-10.8)
[2018-05-13 11:06] LABS: BLOOD UREA NITROGEN 22 mg/dl (9-20); CALCIUM 9.4 mg/dL (8.4-10.2); GFR NON-AFRICAN AMERICAN > 60
[2018-05-13] MEDS ORDERED: Lidocaine Hydrochloride 1% 10 ML ONE (13:34)
--- NOTE | 2018-05-13 13:45 | PCM.SURG1 ---
Surgeon's Initial Post Op Note - Surgeon's Notes Surgeon: Melchor Cruz MD Supervisor [employer] Department: NONE Type of Anesthesia: Local Pre-Operative Diagnosis: Infection Operative Findings: Patent right basilic vein Post-Operative Diagnosis: iNFECTION Operation Performed: Single lumen picc right arm, 37 cm. Specimen/Specimens Removed: None Estimated Blood Loss: EBL {In ML}: 2 Blood Products Given: N/A Drains Used: No Drains Post-Op Condition: Fair Date of Surgery/Procedure: 05/13/18 Time of Surgery/Procedure: 13:45
--- NOTE | 2018-05-13 14:07 | VASCULAR ---
PROCEDURE: Date of procedure: 05/13/2018 Procedure: 1. Placement of a right arm PICC with ultrasound and fluoroscopic guidance, CPT 59764 2. PICC tip confirmation with spot radiograph and is in the superior vena cava Medications: 3cc 1 percent lidocaine Total Fluoro time: 12.2 Seconds Radiation: 1.27 MGy EBL: 2 cc HISTORY: Infection requiring long-term IV antibiotics TECHNIQUE: Following informed consent and procedure time-out, the patient was placed supine on the interventional table and the right arm prepped and draped in the usual sterile fashion. Ultrasound showed a patent and compressible right basilic vein. After the skin was anesthetized with lidocaine, the basilic vein was accessed with micro micropuncture technique using ultrasound guidance. A guidewire was then advanced under fluoroscopic guidance into the superior vena cava. An image documenting ultrasound guidance for vascular access was permanently saved. The length of the single-lumen 4 Belgian PICC was trimmed to 37 centimeters and advanced through a peel-away sheath. The PICC was position with tip of PICC confirm a spot radiograph the superior vena cava. The PICC was secured to the patient's skin. The PICC was flushed. A biopatch and sterile dressing was applied. IMPRESSION: Placement of a single-lumen 4 Belgian PICC trimmed to 37 centimeters via right basilic vein. The tip of the PICC is confirmed with spot radiograph and is in the superior vena cava.
--- NOTE | 2018-05-13 17:18 | CP.PCM.PN ---
Subjective - Date & Time of Evaluation Date of Evaluation: 05/13/18 Time of Evaluation: 08:00 - Subjective Subjective: 82 yo male admitted after fall found to have MSSA bacteremia/ sepsis also treated for UTI and foot ulcers with negative ceretec scan for OM Endocarditis could not be ruled out so would recc cont of IV antibiotics for 6 weeks as out pt Objective - Vital Signs/Intake and Output Vital Signs (last 24 hours): Temp Pulse Resp BP Pulse Ox 97.7 F 61 17 93/58 L 97 05/13/18 15:44 05/13/18 15:44 05/13/18 15:44 05/13/18 15:44 05/13/18 15:44 - Medications Medications: Current Medications Cyanocobalamin (Vitamin B-12) 250 mcg PO DAILY [facility] Last Admin: 05/13/18 08:43 Dose: 250 mcg Digoxin (Digoxin) 0.125 mg PO TUTH [facility] Last Admin: 05/13/18 08:59 Dose: 0.125 mg Digoxin (Digoxin) 0.125 mg PO FRI [facility] Last Admin: 05/07/18 09:20 Dose: 0.125 mg Digoxin (Digoxin) 0.125 mg PO SUN [facility] Last Admin: 05/09/18 08:35 Dose: 0.125 mg Digoxin (Lanoxin) 0.25 mg PO WED [facility] Last Admin: 05/12/18 10:46 Dose: 0.25 mg Digoxin (Lanoxin) 0.25 mg PO SAT [facility] Last Admin: 05/08/18 08:08 Dose: 0.25 mg Digoxin (Digoxin) 0.125 mg PO MON [facility] Last Admin: 05/10/18 08:53 Dose: 0.125 mg Ergocalciferol (Drisdol 50,000 Intl Units Cap) 1 cap PO MO [facility] Last Admin: 05/10/18 11:55 Dose: 1 cap Piperacillin Sod/Tazobactam (Sod 3.375 gm/ Sodium Chloride) 100 mls @ 100 mls/hr IVPB Q8 [facility]; Protocol Last Admin: 05/13/18 08:43 Dose: 100 mls/hr Levothyroxine Sodium (Synthroid) 225 mcg PO DAILY@0630 [facility] Last Admin: 05/13/18 06:11 Dose: 225 mcg Multivitamins/Minerals (Therapeutic-M Tab) 1 tab PO DAILY [facility] Last Admin: 05/13/18 08:43 Dose: 1 tab Mupirocin (Bactroban Ointment) 1 applic TOP BID [facility] Last Admin: 05/13/18 08:42 Dose: 1 applic Rivaroxaban (Xarelto) 15 mg PO DAILY [facility]; Protocol Last Admin: 05/13/18 08:43 Dose: 15 mg Tamsulosin HCl (Flomax) 0.4 mg PO DAILY [facility] Last Admin: 05/13/18 08:42 Dose: 0.4 mg - Labs Labs: 05/13/18 10:30 05/13/18 10:30 PT 23.5 Seconds (9.8-13.1) H 05/06/18 00:05 INR 2.1 05/06/18 00:05 APTT 35.4 Seconds (25.6-37.1) 05/06/18 00:05 Assessment and Plan (1) Syncope Status: Acute (2) UTI (urinary tract infection) Status: Acute (3) NICOLLE (acute kidney injury) Status: Acute (4) Abnormal gait Status: Acute (5) CKD (chronic kidney disease) stage 2, GFR 60-89 ml/min Status: Acute (6) Chest pain Status: Acute (7) Chronic a-fib Status: Acute (8) Debility Status: Acute (9) Dehydration Status: Acute
--- NOTE | 2018-05-13 17:51 | CP.PCM.PN ---
Subjective - Date & Time of Evaluation Date of Evaluation: 05/13/18 Time of Evaluation: 10:00 - Subjective Subjective: patient seen and examined at bedside. Interim events noted No complaints offered at this time denies cp/sob/fever/chills. available diagnostic data reviewed Review of Systems All systems: reviewed and no additional remarkable complaints except mentioned above Objective Vital Signs Stable - Constitutional Appears: Non-toxic, No Acute Distress Head Exam: NORMAL INSPECTION Eye Exam: Normal appearance Respiratory Exam: NORMAL BREATHING PATTERN Cardiovascular Exam: +S1, +S2 GI & Abdominal Exam: Soft Neurological Exam: Alert, Awake Psychiatric exam: Normal Affect, Normal Mood Skin Exam: Normal Color, Warm Assessment and Plan monitor vitals monitor labs Cont meds Cont tx consultants appreciated input for PICC today, elongated IV abx course needed rest of plan as ordered Objective - Vital Signs/Intake and Output Vital Signs (last 24 hours): Temp Pulse Resp BP Pulse Ox 97.7 F 61 17 93/58 L 97 05/13/18 15:44 05/13/18 15:44 05/13/18 15:44 05/13/18 15:44 05/13/18 15:44 - Medications Medications: Current Medications Cyanocobalamin (Vitamin B-12) 250 mcg PO DAILY [facility] Last Admin: 05/13/18 08:43 Dose: 250 mcg Digoxin (Digoxin) 0.125 mg PO TUTH [facility] Last Admin: 05/13/18 08:59 Dose: 0.125 mg Digoxin (Digoxin) 0.125 mg PO FRI [facility] Last Admin: 05/07/18 09:20 Dose: 0.125 mg Digoxin (Digoxin) 0.125 mg PO SUN [facility] Last Admin: 05/09/18 08:35 Dose: 0.125 mg Digoxin (Lanoxin) 0.25 mg PO WED [facility] Last Admin: 05/12/18 10:46 Dose: 0.25 mg Digoxin (Lanoxin) 0.25 mg PO SAT [facility] Last Admin: 05/08/18 08:08 Dose: 0.25 mg Digoxin (Digoxin) 0.125 mg PO MON [facility] Last Admin: 05/10/18 08:53 Dose: 0.125 mg Ergocalciferol (Drisdol 50,000 Intl Units Cap) 1 cap PO MO [facility] Last Admin: 05/10/18 11:55 Dose: 1 cap Piperacillin Sod/Tazobactam (Sod 3.375 gm/ Sodium Chloride) 100 mls @ 100 mls/hr IVPB Q8 [facility]; Protocol Last Admin: 05/13/18 17:18 Dose: 100 mls/hr Levothyroxine Sodium (Synthroid) 225 mcg PO DAILY@0630 [facility] Last Admin: 05/13/18 06:11 Dose: 225 mcg Multivitamins/Minerals (Therapeutic-M Tab) 1 tab PO DAILY [facility] Last Admin: 05/13/18 08:43 Dose: 1 tab Mupirocin (Bactroban Ointment) 1 applic TOP BID [facility] Last Admin: 05/13/18 17:17 Dose: 1 applic Rivaroxaban (Xarelto) 15 mg PO DAILY [facility]; Protocol Last Admin: 05/13/18 08:43 Dose: 15 mg Tamsulosin HCl (Flomax) 0.4 mg PO DAILY [facility] Last Admin: 05/13/18 08:42 Dose: 0.4 mg - Labs Labs: 05/13/18 10:30 05/13/18 10:30 PT 23.5 Seconds (9.8-13.1) H 05/06/18 00:05 INR 2.1 05/06/18 00:05 APTT 35.4 Seconds (25.6-37.1) 05/06/18 00:05 Assessment and Plan (1) Bacteremia Status: Acute
[2018-05-14] MEDS: Piperacillin/Tazobact 3.375 GM in Sodium Chloride 0.9% 100 ML IVPB SCH ×3 (00:03→16:51)
--- NOTE | 2018-05-14 00:50 | CP.PCM.PN ---
Subjective - Date & Time of Evaluation Date of Evaluation: 05/12/18 Time of Evaluation: 09:00 - Subjective Subjective: Subjective: Pt seen and assessed at bedside. No new complaints other than generalized weakness. Pt for possible JANEE procedure. Subjective Review of Systems: reviewed and no additional remarkable complaints except weakness. Objective Vital Signs Stable Appears: Non-toxic, No Acute Distress. Head Exam: NORMAL INSPECTION, normocephalic. Eye Exam: Normal appearance, PERRLA, EOMI. Respiratory Exam: NORMAL BREATHING PATTERN, breath sounds clear to auscultation. Cardiovascular Exam: +S1, +S2. RRR. GI & Abdominal Exam: Soft, non-tender, non-distended. Neurological Exam: Alert, Awake, Oriented with periods of forgetfulness. Psychiatric exam: Normal Affect, Normal Mood. Skin Exam: Normal Color, Warm, Dry. Ulcer to left foot noted with dressing. Assessment/Impression/Plan: 1.) UTI/Syncope -No new syncopal episodes since admission. -Consults appreciated input. -For possible JANEE with cardiology. -Continue Zosyn; monitor WBC. Afebrile at present. -Recent Bone scan was negative for osteomyelitis. -PT/OT. -continue current tx. Objective - Vital Signs/Intake and Output Vital Signs (last 24 hours): Temp Pulse Resp BP Pulse Ox 98.5 F 60 17 104/66 97 05/13/18 21:00 05/13/18 21:00 05/13/18 21:00 05/13/18 21:00 05/13/18 19:27 - Medications Medications: Current Medications Cyanocobalamin (Vitamin B-12) 250 mcg PO DAILY [facility] Last Admin: 05/13/18 08:43 Dose: 250 mcg Digoxin (Digoxin) 0.125 mg PO TUTH [facility] Last Admin: 05/13/18 08:59 Dose: 0.125 mg Digoxin (Digoxin) 0.125 mg PO FRI [facility] Last Admin: 05/07/18 09:20 Dose: 0.125 mg Digoxin (Digoxin) 0.125 mg PO SUN [facility] Last Admin: 05/09/18 08:35 Dose: 0.125 mg Digoxin (Lanoxin) 0.25 mg PO WED [facility] Last Admin: 05/12/18 10:46 Dose: 0.25 mg Digoxin (Lanoxin) 0.25 mg PO SAT [facility] Last Admin: 05/08/18 08:08 Dose: 0.25 mg Digoxin (Digoxin) 0.125 mg PO MON [facility] Last Admin: 05/10/18 08:53 Dose: 0.125 mg Ergocalciferol (Drisdol 50,000 Intl Units Cap) 1 cap PO MO [facility] Last Admin: 05/10/18 11:55 Dose: 1 cap Piperacillin Sod/Tazobactam (Sod 3.375 gm/ Sodium Chloride) 100 mls @ 100 mls/hr IVPB Q8 [facility]; Protocol Last Admin: 05/14/18 00:03 Dose: 100 mls/hr Levothyroxine Sodium (Synthroid) 225 mcg PO DAILY@0630 [facility] Last Admin: 05/13/18 06:11 Dose: 225 mcg Multivitamins/Minerals (Therapeutic-M Tab) 1 tab PO DAILY [facility] Last Admin: 05/13/18 08:43 Dose: 1 tab Mupirocin (Bactroban Ointment) 1 applic TOP BID [facility] Last Admin: 05/13/18 17:17 Dose: 1 applic Rivaroxaban (Xarelto) 15 mg PO DAILY [facility]; Protocol Last Admin: 05/13/18 08:43 Dose: 15 mg Tamsulosin HCl (Flomax) 0.4 mg PO DAILY [facility] Last Admin: 05/13/18 08:42 Dose: 0.4 mg - Labs Labs: 05/13/18 10:30 05/13/18 10:30 PT 23.5 Seconds (9.8-13.1) H 05/06/18 00:05 INR 2.1 05/06/18 00:05 APTT 35.4 Seconds (25.6-37.1) 05/06/18 00:05 Assessment and Plan (1) UTI (urinary tract infection) Status: Acute (2) Syncope Status: Acute
[2018-05-14] MEDS: Levothyroxine 75 MCG TAB PO SCH (06:09)
[2018-05-14] MEDS: Digoxin 125 mcg (0.125 mg) Tab PO SCH (08:33)
[2018-05-14] MEDS: Mupirocin 2% Oint 1GM UD TOP SCH ×2 (08:33→16:50)
[2018-05-14] MEDS: Multivitamin With Minerals Tab PO SCH (08:34)
[2018-05-14] MEDS: CYANOCOBALAMIN (VITAMIN B-12) 250 MCG TABLET PO SCH (08:34)
--- NOTE | 2018-05-14 11:33 | CP.PCM.PN ---
Subjective - Date & Time of Evaluation Date of Evaluation: 05/14/18 Time of Evaluation: 11:31 - Subjective Subjective: Colleen Jama, PGY-1, Cardiology Progress Note for Dr. Welch Patient was seen and examined at bedside. Patient had no acute overnight events. Patient denies any symptoms at this time. Patient's last syncopal episode was over one week ago. Objective - Vital Signs/Intake and Output Vital Signs (last 24 hours): Temp Pulse Resp BP Pulse Ox 97.9 F 60 20 100/65 95 05/14/18 08:24 05/14/18 08:27 05/14/18 08:24 05/14/18 08:24 05/14/18 08:24 Intake and Output: 05/14/18 05/14/18 06:59 18:59 Intake Total 100 Balance 100 - Medications Medications: Current Medications Cyanocobalamin (Vitamin B-12) 250 mcg PO DAILY [facility] Last Admin: 05/14/18 08:34 Dose: 250 mcg Digoxin (Digoxin) 0.125 mg PO TUTH [facility] Last Admin: 05/13/18 08:59 Dose: 0.125 mg Digoxin (Digoxin) 0.125 mg PO FRI [facility] Last Admin: 05/14/18 08:33 Dose: 0.125 mg Digoxin (Digoxin) 0.125 mg PO SUN [facility] Last Admin: 05/09/18 08:35 Dose: 0.125 mg Digoxin (Lanoxin) 0.25 mg PO WED [facility] Last Admin: 05/12/18 10:46 Dose: 0.25 mg Digoxin (Lanoxin) 0.25 mg PO SAT [facility] Last Admin: 05/08/18 08:08 Dose: 0.25 mg Digoxin (Digoxin) 0.125 mg PO MON [facility] Last Admin: 05/10/18 08:53 Dose: 0.125 mg Ergocalciferol (Drisdol 50,000 Intl Units Cap) 1 cap PO MO [facility] Last Admin: 05/10/18 11:55 Dose: 1 cap Piperacillin Sod/Tazobactam (Sod 3.375 gm/ Sodium Chloride) 100 mls @ 100 mls/hr IVPB Q8 [facility]; Protocol Last Admin: 05/14/18 08:35 Dose: 100 mls/hr Levothyroxine Sodium (Synthroid) 225 mcg PO DAILY@0630 [facility] Last Admin: 05/14/18 06:09 Dose: 225 mcg Multivitamins/Minerals (Therapeutic-M Tab) 1 tab PO DAILY [facility] Last Admin: 05/14/18 08:34 Dose: 1 tab Mupirocin (Bactroban Ointment) 1 applic TOP BID [facility] Last Admin: 05/14/18 08:33 Dose: 1 applic Rivaroxaban (Xarelto) 15 mg PO DAILY [facility]; Protocol Last Admin: 05/14/18 08:35 Dose: 15 mg Tamsulosin HCl (Flomax) 0.4 mg PO DAILY [facility] Last Admin: 05/14/18 08:34 Dose: 0.4 mg - Labs Labs: 05/13/18 10:30 05/13/18 10:30 PT 23.5 Seconds (9.8-13.1) H 05/06/18 00:05 INR 2.1 05/06/18 00:05 APTT 35.4 Seconds (25.6-37.1) 05/06/18 00:05 - Constitutional Appears: Well, Non-toxic, No Acute Distress - Head Exam Head Exam: ATRAUMATIC, NORMAL INSPECTION, NORMOCEPHALIC - Eye Exam Eye Exam: EOMI, PERRL - ENT Exam ENT Exam: Mucous Membranes Moist - Respiratory Exam Respiratory Exam: Clear to Ausculation Bilateral, NORMAL BREATHING PATTERN. absent: Rales, Rhonchi, Wheezes - Cardiovascular Exam Cardiovascular Exam: REGULAR RHYTHM, RRR, +S1, +S2, Murmur (LLSB holosystolic b lowing murmur) - GI/Abdominal Exam GI & Abdominal Exam: Soft, Normal Bowel Sounds. absent: Tenderness - Extremities Exam Extremities Exam: Full ROM, Normal Capillary Refill, Normal Inspection - Neurological Exam Neurological Exam: Alert, Awake, CN II-XII Intact, Oriented x3 - Skin Additional comments: bilateral lower extremities warm and darkened Assessment and Plan (1) Bacteremia Assessment & Plan: Likely 2/2 to UTI vs. cellulitis Patient was positive for S. Aureus on blood culture on 05/05/18 Patient has been negative for blood culture for 5 days since 05/07/18 Status: Acute (2) Syncope Assessment & Plan: Echocardiogram from 05/10: LVEF of 55-60%, severely dilated LA, dilated RA, mild AR, moderate aortic stenosis with AV are of 1.25 cm2, mild MR, moderate TR, RVSP of 30 Carotid ultrasound: no significant stenosis noted EKG on admission: ventricular paced rhythm with HR of 69 Significant orthostatic vital signs with drop of systolic blood pressure of more than 20 from lying to standing. Echocardiogram shows significant finding of moderate aortic stenosis which could cause the syncopal episodes. Urine osmolarity was high, likely signifying patient is dehydrated As severe could be contributing to patient's episodes of syncope, will plan for cardiac catheterization on Thursday Status: Acute (3) UTI (urinary tract infection) Assessment & Plan: UCx positive for Morg Morganii. Continue with antibiotics Status: Acute
--- NOTE | 2018-05-14 13:04 | CP.PCM.PN ---
Subjective - Date & Time of Evaluation Date of Evaluation: 05/14/18 Time of Evaluation: 09:00 - Subjective Subjective: awake alert nad denies fever Objective - Vital Signs/Intake and Output Vital Signs (last 24 hours): Temp Pulse Resp BP Pulse Ox 97.6 F 59 L 20 111/71 93 L 05/14/18 12:25 05/14/18 12:25 05/14/18 12:25 05/14/18 12:25 05/14/18 12:25 Intake and Output: 05/14/18 05/14/18 06:59 18:59 Intake Total 100 Balance 100 - Medications Medications: Current Medications Cyanocobalamin (Vitamin B-12) 250 mcg PO DAILY [facility] Last Admin: 05/14/18 08:34 Dose: 250 mcg Digoxin (Digoxin) 0.125 mg PO TUTH [facility] Last Admin: 05/13/18 08:59 Dose: 0.125 mg Digoxin (Digoxin) 0.125 mg PO FRI [facility] Last Admin: 05/14/18 08:33 Dose: 0.125 mg Digoxin (Digoxin) 0.125 mg PO SUN [facility] Last Admin: 05/09/18 08:35 Dose: 0.125 mg Digoxin (Lanoxin) 0.25 mg PO WED [facility] Last Admin: 05/12/18 10:46 Dose: 0.25 mg Digoxin (Lanoxin) 0.25 mg PO SAT [facility] Last Admin: 05/08/18 08:08 Dose: 0.25 mg Digoxin (Digoxin) 0.125 mg PO MON [facility] Last Admin: 05/10/18 08:53 Dose: 0.125 mg Ergocalciferol (Drisdol 50,000 Intl Units Cap) 1 cap PO MO [facility] Last Admin: 05/10/18 11:55 Dose: 1 cap Piperacillin Sod/Tazobactam (Sod 3.375 gm/ Sodium Chloride) 100 mls @ 100 mls/hr IVPB Q8 [facility]; Protocol Last Admin: 05/14/18 08:35 Dose: 100 mls/hr Levothyroxine Sodium (Synthroid) 225 mcg PO DAILY@0630 [facility] Last Admin: 05/14/18 06:09 Dose: 225 mcg Multivitamins/Minerals (Therapeutic-M Tab) 1 tab PO DAILY [facility] Last Admin: 05/14/18 08:34 Dose: 1 tab Mupirocin (Bactroban Ointment) 1 applic TOP BID [facility] Last Admin: 05/14/18 08:33 Dose: 1 applic Rivaroxaban (Xarelto) 15 mg PO DAILY [facility]; Protocol Last Admin: 05/14/18 08:35 Dose: 15 mg Tamsulosin HCl (Flomax) 0.4 mg PO DAILY [facility] Last Admin: 05/14/18 08:34 Dose: 0.4 mg - Labs Labs: 05/13/18 10:30 05/13/18 10:30 PT 23.5 Seconds (9.8-13.1) H 05/06/18 00:05 INR 2.1 05/06/18 00:05 APTT 35.4 Seconds (25.6-37.1) 05/06/18 00:05 - Constitutional Appears: Non-toxic, Chronically Ill - Head Exam Head Exam: ATRAUMATIC, NORMAL INSPECTION, NORMOCEPHALIC - Eye Exam Eye Exam: EOMI, Normal appearance, PERRL Pupil Exam: NORMAL ACCOMODATION, PERRL - ENT Exam ENT Exam: Mucous Membranes Moist, Normal Exam - Neck Exam Neck Exam: Full ROM, Normal Inspection. absent: Lymphadenopathy - Respiratory Exam Respiratory Exam: Clear to Ausculation Bilateral, NORMAL BREATHING PATTERN - Cardiovascular Exam Cardiovascular Exam: REGULAR RHYTHM, +S1, +S2. absent: Murmur - GI/Abdominal Exam GI & Abdominal Exam: Soft, Normal Bowel Sounds. absent: Tenderness - Rectal Exam Rectal Exam: Deferred - Extremities Exam Extremities Exam: Full ROM, Normal Capillary Refill, Normal Inspection. absent: Joint Swelling, Pedal Edema - Back Exam Back Exam: NORMAL INSPECTION - Neurological Exam Neurological Exam: Alert, Awake, CN II-XII Intact, Normal Gait, Oriented x3 - Psychiatric Exam Psychiatric exam: Normal Affect, Normal Mood - Skin Skin Exam: Dry, Intact, Normal Color Additional comments: wounds stable Assessment and Plan (1) Syncope Status: Acute (2) UTI (urinary tract infection) Status: Acute (3) NICOLLE (acute kidney injury) Status: Acute (4) Abnormal gait Status: Acute (5) CKD (chronic kidney disease) stage 2, GFR 60-89 ml/min Status: Acute (6) Chest pain Status: Acute (7) Chronic a-fib Status: Acute (8) Debility Status: Acute (9) Dehydration Status: Acute - Assessment and Plan (Free Text) Assessment: IV rx renewed
--- NOTE | 2018-05-14 15:18 | CP.PCM.PN ---
Subjective - Date & Time of Evaluation Date of Evaluation: 05/14/18 Time of Evaluation: 15:15 - Subjective Subjective: Podiatry Consult Note: Dr. Davenport Patient seen and evaluated for R submetatarsal 5 ulceration and L preulcerative submetatarsal 5 lesion; stable and improving. Patient resting comfortably and in NAD. Patient states that his foot only causes pain when he ambulates.Denies nausea/vomiting/fever. Objective - Vital Signs/Intake and Output Vital Signs (last 24 hours): Temp Pulse Resp BP Pulse Ox 97.6 F 59 L 20 111/71 93 L 05/14/18 12:25 05/14/18 12:25 05/14/18 12:25 05/14/18 12:25 05/14/18 12:25 Intake and Output: 05/14/18 05/14/18 06:59 18:59 Intake Total 100 Balance 100 - Medications Medications: Current Medications Cyanocobalamin (Vitamin B-12) 250 mcg PO DAILY [facility] Last Admin: 05/14/18 08:34 Dose: 250 mcg Digoxin (Digoxin) 0.125 mg PO TUTH [facility] Last Admin: 05/13/18 08:59 Dose: 0.125 mg Digoxin (Digoxin) 0.125 mg PO FRI [facility] Last Admin: 05/14/18 08:33 Dose: 0.125 mg Digoxin (Digoxin) 0.125 mg PO SUN [facility] Last Admin: 05/09/18 08:35 Dose: 0.125 mg Digoxin (Lanoxin) 0.25 mg PO WED [facility] Last Admin: 05/12/18 10:46 Dose: 0.25 mg Digoxin (Lanoxin) 0.25 mg PO SAT [facility] Last Admin: 05/08/18 08:08 Dose: 0.25 mg Digoxin (Digoxin) 0.125 mg PO MON [facility] Last Admin: 05/10/18 08:53 Dose: 0.125 mg Ergocalciferol (Drisdol 50,000 Intl Units Cap) 1 cap PO MO [facility] Last Admin: 05/10/18 11:55 Dose: 1 cap Piperacillin Sod/Tazobactam (Sod 3.375 gm/ Sodium Chloride) 100 mls @ 100 mls/hr IVPB Q8 [facility]; Protocol Last Admin: 05/14/18 08:35 Dose: 100 mls/hr Levothyroxine Sodium (Synthroid) 225 mcg PO DAILY@0630 [facility] Last Admin: 05/14/18 06:09 Dose: 225 mcg Multivitamins/Minerals (Therapeutic-M Tab) 1 tab PO DAILY [facility] Last Admin: 05/14/18 08:34 Dose: 1 tab Mupirocin (Bactroban Ointment) 1 applic TOP BID [facility] Last Admin: 05/14/18 08:33 Dose: 1 applic Rivaroxaban (Xarelto) 15 mg PO DAILY [facility]; Protocol Last Admin: 05/14/18 08:35 Dose: 15 mg Tamsulosin HCl (Flomax) 0.4 mg PO DAILY [facility] Last Admin: 05/14/18 08:34 Dose: 0.4 mg - Labs Labs: 05/13/18 10:30 05/13/18 10:30 PT 23.5 Seconds (9.8-13.1) H 05/06/18 00:05 INR 2.1 05/06/18 00:05 APTT 35.4 Seconds (25.6-37.1) 05/06/18 00:05 - Constitutional Appears: Non-toxic, No Acute Distress - Head Exam Head Exam: ATRAUMATIC, NORMOCEPHALIC - Extremities Exam Additional comments: Vasc: DP and PT nonpalpable, temperature gradient cool to cool, CFT <4 seconds to the digits, edema noted to the LE bilaterally Ortho: MMT is 5/5 in all four compartments, tenderness noted to palpation surrounding ulceration site Neuro: Gross sensation intact, protective sensation diminished Derm: Ulceration secondary to pressure appreciated to the R submetatarsal 5 with no exposed bone, stage II. No drainage appreciated with hyperkeratotic rim. No purulence, no erythema, no cellulitis, no clinical signs of infection. L submetatarsal 5 pre-ulcerative lesion appreciated, stage I . - Neurological Exam Neurological Exam: Alert, Awake, Oriented x3 - Psychiatric Exam Psychiatric exam: Normal Affect, Normal Mood Assessment and Plan - Assessment and Plan (Free Text) Assessment: 82 year old male patient with PMHx of Afib, CAD, CHF, Hypothyroidism, with R submetatarsal 5 ulceration, stage II, and L preulcerative submetatarsal 5 lesion, stage I, secondary to pressure; stable and improving Plan: Patient was examined and evaluated at bedside Charts, labs, vitals reviewed: WBC 12.2, afebrile R foot x-ray ordered; Slight cortical irregularity of the lateral aspect of the 5th metatarsal. Possibility of underlying OM cannot be excluded R foot wound culture taken; ecoli, staph aureus Abx per ID reccs Bactroban ordered Bone scan ordered to r/o OM 5th met R; no evidence of OM Ulceration cleansed, dressed with optifoam Will continue to follow
[2018-05-15] MEDS: Piperacillin/Tazobact 3.375 GM in Sodium Chloride 0.9% 100 ML IVPB SCH ×3 (00:35→17:11)
[2018-05-15] MEDS: Levothyroxine 75 MCG TAB PO SCH (06:14)
[2018-05-15] MEDS: Digoxin 250 mcg (0.25 mg) Tab PO SCH (09:51)
[2018-05-15] MEDS: Mupirocin 2% Oint 1GM UD TOP SCH ×2 (09:51→17:04)
[2018-05-15] MEDS: Multivitamin With Minerals Tab PO SCH (09:53)
[2018-05-15] MEDS: CYANOCOBALAMIN (VITAMIN B-12) 250 MCG TABLET PO SCH (09:53)
--- NOTE | 2018-05-15 18:34 | CP.PCM.CON ---
History of Present Illness - History of Present Illness History of Present Illness: renal note reason for consult hypotension 82 year old male with history of AFib with pacemaker, CAD, CHF, hypothyroidism who presented to the ED with syncopal episode. Patient does not recall episode. no hx of ckd no urinary complaints Does complain of dysuria though denies chest pain, dizziness, headaches. PMHx: Atrial fibrillation s/p pacemaker, CAD, Bradycardia, CHF with preserved EF, Hypothyroidism SurgHx: pacemaker FMHx: noncontributory Medications: reviewed Allergies: NKDA vitals reviewed bp soft heent normal eating breakfast, gurgling op moist no jvd [id number] present no resp distress abd soft nt nd awake no fnd cooperative hypotension/a fib/chf unclear cause of hypotension, check orthostats check cortisol and tsh levels, i ordered it rest of work up per primary team Past Patient History - Past Medical History & Family History Past Medical History?: Yes - Past Social History Smoking Status: Former Smoker - CARDIAC Hx Atrial Fibrillation: Yes Hx Cardia Arrhythmia: Yes (bradycardia) Hx Congestive Heart Failure: Yes Hx Hypercholesterolemia: Yes Hx Hypertension: Yes Hx Pacemaker: Yes - PULMONARY Hx Respiratory Disorders: No - NEUROLOGICAL Hx Neurological Disorder: No - HEENT Hx HEENT Problems: No - RENAL Hx Chronic Kidney Disease: No - ENDOCRINE/METABOLIC Hx Endocrine Disorders: Yes Hx Hypothyroidism: Yes - HEMATOLOGICAL/ONCOLOGICAL Hx Blood Disorders: No Hx AIDS: No Hx Human Immunodeficiency Virus (HIV): No - INTEGUMENTARY Hx Dermatological Problems: No Hx Cellulitis: Yes - MUSCULOSKELETAL/RHEUMATOLOGICAL Hx Musculoskeletal Disorders: Yes Hx Falls: Yes - GASTROINTESTINAL Hx Gastrointestinal Disorders: No - GENITOURINARY/GYNECOLOGICAL Hx Genitourinary Disorders: No - PSYCHIATRIC Hx Psychophysiologic Disorder: No Hx Emotional Abuse: No Hx Physical Abuse: No Hx Substance Use: No - SURGICAL HISTORY Hx Tonsillectomy: Yes - ANESTHESIA Hx Anesthesia: Yes Hx Anesthesia Reactions: No Hx Malignant Hyperthermia: No Meds Allergies/Adverse Reactions: Allergies Allergy/AdvReac Type Severity Reaction Status Date / Time No Known Allergies Allergy Unknown RASH Verified 01/05/18 16:45 - Medications Medications: Current Medications Albuterol/Ipratropium (Duoneb 3 Mg/0.5 Mg (3 Ml) Ud) 3 ml INH RTID [facility] Cyanocobalamin (Vitamin B-12) 250 mcg PO DAILY [facility] Last Admin: 05/15/18 09:53 Dose: 250 mcg Digoxin (Digoxin) 0.125 mg PO TUTH [facility] Last Admin: 05/13/18 08:59 Dose: 0.125 mg Digoxin (Digoxin) 0.125 mg PO FRI [facility] Last Admin: 05/14/18 08:33 Dose: 0.125 mg Digoxin (Digoxin) 0.125 mg PO SUN [facility] Last Admin: 05/09/18 08:35 Dose: 0.125 mg Digoxin (Lanoxin) 0.25 mg PO WED [facility] Last Admin: 05/12/18 10:46 Dose: 0.25 mg Digoxin (Lanoxin) 0.25 mg PO SAT [facility] Last Admin: 05/15/18 09:51 Dose: 0.25 mg Digoxin (Digoxin) 0.125 mg PO MON [facility] Last Admin: 05/10/18 08:53 Dose: 0.125 mg Ergocalciferol (Drisdol 50,000 Intl Units Cap) 1 cap PO MO [facility] Last Admin: 05/10/18 11:55 Dose: 1 cap Furosemide (Lasix) 20 mg PO DAILY [facility] Last Admin: 05/15/18 17:04 Dose: 20 mg Piperacillin Sod/Tazobactam (Sod 3.375 gm/ Sodium Chloride) 100 mls @ 100 mls/hr IVPB Q8 [facility]; Protocol Last Admin: 05/15/18 17:11 Dose: 100 mls/hr Levothyroxine Sodium (Synthroid) 225 mcg PO DAILY@0630 [facility] Last Admin: 05/15/18 06:14 Dose: 225 mcg Midodrine (Proamatine) 2.5 mg PO BID [facility] Last Admin: 05/15/18 17:05 Dose: 2.5 mg Multivitamins/Minerals (Therapeutic-M Tab) 1 tab PO DAILY [facility] Last Admin: 05/15/18 09:53 Dose: 1 tab Mupirocin (Bactroban Ointment) 1 applic TOP BID [facility] Last Admin: 05/15/18 17:04 Dose: 1 applic Rivaroxaban (Xarelto) 15 mg PO DAILY [facility]; Protocol Last Admin: 05/14/18 08:35 Dose: 15 mg Tamsulosin HCl (Flomax) 0.4 mg PO DAILY [facility] Last Admin: 05/15/18 09:51 Dose: 0.4 mg Results - Vital Signs Recent Vital Signs: Last Vital Signs Temp 98.0 F 05/15/18 16:03 Pulse 60 05/15/18 16:03 Resp 18 05/15/18 16:03 BP 109/71 05/15/18 17:04 Pulse Ox 94 L 05/15/18 16:03 - Labs Result Diagrams: 05/13/18 10:30 05/13/18 10:30
[2018-05-15] MEDS: Albuterol-Ipratrop 3 mg / 0.5 (3 ml) UD INH SCH (20:26)
[2018-05-16] MEDS: Piperacillin/Tazobact 3.375 GM in Sodium Chloride 0.9% 100 ML IVPB SCH ×3 (00:15→17:49)
[2018-05-16] MEDS: Levothyroxine 75 MCG TAB PO SCH (05:49)
[2018-05-16] MEDS: Albuterol-Ipratrop 3 mg / 0.5 (3 ml) UD INH SCH ×3 (07:50→19:38)
[2018-05-16] MEDS: CYANOCOBALAMIN (VITAMIN B-12) 250 MCG TABLET PO SCH (09:20)
[2018-05-16] MEDS: Multivitamin With Minerals Tab PO SCH (09:20)
[2018-05-16] MEDS: Digoxin 125 mcg (0.125 mg) Tab PO SCH (09:21)
[2018-05-16] MEDS: Mupirocin 2% Oint 1GM UD TOP SCH ×2 (09:21→17:47)
--- NOTE | 2018-05-16 13:46 | CP.PCM.PN ---
Subjective - Date & Time of Evaluation Date of Evaluation: 05/16/18 Time of Evaluation: 08:00 - Subjective Subjective: afebrile on IV antibiotics awake and alert In NAD Objective - Vital Signs/Intake and Output Vital Signs (last 24 hours): Temp Pulse Resp BP Pulse Ox 97.7 F 60 18 100/60 93 L 05/16/18 11:51 05/16/18 11:51 05/16/18 11:51 05/16/18 11:51 05/16/18 11:51 - Medications Medications: Current Medications Albuterol/Ipratropium (Duoneb 3 Mg/0.5 Mg (3 Ml) Ud) 3 ml INH RTID [facility] Last Admin: 05/16/18 13:32 Dose: 3 ml Cyanocobalamin (Vitamin B-12) 250 mcg PO DAILY [facility] Last Admin: 05/16/18 09:20 Dose: 250 mcg Digoxin (Digoxin) 0.125 mg PO TUTH [facility] Last Admin: 05/13/18 08:59 Dose: 0.125 mg Digoxin (Digoxin) 0.125 mg PO FRI [facility] Last Admin: 05/14/18 08:33 Dose: 0.125 mg Digoxin (Digoxin) 0.125 mg PO SUN [facility] Last Admin: 05/16/18 09:21 Dose: 0.125 mg Digoxin (Lanoxin) 0.25 mg PO WED [facility] Last Admin: 05/12/18 10:46 Dose: 0.25 mg Digoxin (Lanoxin) 0.25 mg PO SAT [facility] Last Admin: 05/15/18 09:51 Dose: 0.25 mg Digoxin (Digoxin) 0.125 mg PO MON [facility] Last Admin: 05/10/18 08:53 Dose: 0.125 mg Ergocalciferol (Drisdol 50,000 Intl Units Cap) 1 cap PO MO [facility] Last Admin: 05/10/18 11:55 Dose: 1 cap Furosemide (Lasix) 20 mg PO DAILY [facility] Last Admin: 05/16/18 09:26 Dose: Not Given Piperacillin Sod/Tazobactam (Sod 3.375 gm/ Sodium Chloride) 100 mls @ 100 mls/hr IVPB Q8 [facility]; Protocol Last Admin: 05/16/18 09:18 Dose: 100 mls/hr Levothyroxine Sodium (Synthroid) 225 mcg PO DAILY@0630 [facility] Last Admin: 05/16/18 05:49 Dose: 225 mcg Midodrine (Proamatine) 2.5 mg PO BID [facility] Last Admin: 05/16/18 09:20 Dose: 2.5 mg Multivitamins/Minerals (Therapeutic-M Tab) 1 tab PO DAILY [facility] Last Admin: 05/16/18 09:20 Dose: 1 tab Mupirocin (Bactroban Ointment) 1 applic TOP BID [facility] Last Admin: 05/16/18 09:21 Dose: 1 applic Rivaroxaban (Xarelto) 15 mg PO DAILY [facility]; Protocol Last Admin: 05/14/18 08:35 Dose: 15 mg Tamsulosin HCl (Flomax) 0.4 mg PO DAILY [facility] Last Admin: 05/16/18 09:20 Dose: 0.4 mg - Labs Labs: 05/13/18 10:30 05/13/18 10:30 PT 23.5 Seconds (9.8-13.1) H 05/06/18 00:05 INR 2.1 05/06/18 00:05 APTT 35.4 Seconds (25.6-37.1) 05/06/18 00:05 - Constitutional Appears: Non-toxic, No Acute Distress, Chronically Ill - Head Exam Head Exam: ATRAUMATIC, NORMAL INSPECTION, NORMOCEPHALIC - Eye Exam Eye Exam: EOMI, Normal appearance, PERRL Pupil Exam: NORMAL ACCOMODATION, PERRL - ENT Exam ENT Exam: Mucous Membranes Moist, Normal Exam - Neck Exam Neck Exam: Full ROM, Normal Inspection. absent: Lymphadenopathy - Respiratory Exam Respiratory Exam: Clear to Ausculation Bilateral, NORMAL BREATHING PATTERN - Cardiovascular Exam Cardiovascular Exam: REGULAR RHYTHM, +S1, +S2. absent: Murmur - GI/Abdominal Exam GI & Abdominal Exam: Soft, Normal Bowel Sounds. absent: Tenderness - Rectal Exam Rectal Exam: Deferred - Exam Exam: NORMAL INSPECTION - Extremities Exam Extremities Exam: Full ROM, Normal Capillary Refill, Normal Inspection. 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
--- NOTE | 2018-05-16 21:33 | CP.PCM.PN ---
Subjective - Date & Time of Evaluation Date of Evaluation: 05/11/18 Time of Evaluation: 10:30 - Subjective Subjective: Patient feels very weak Noted some orthostatic hypotension Has no dizziness Has no chets pain. Objective - Vital Signs/Intake and Output Vital Signs (last 24 hours): Temp Pulse Resp BP Pulse Ox 98.2 F 60 18 95/59 L 94 L 05/16/18 20:21 05/16/18 20:27 05/16/18 20:21 05/16/18 20:21 05/16/18 20:21 - Medications Medications: Current Medications Albuterol/Ipratropium (Duoneb 3 Mg/0.5 Mg (3 Ml) Ud) 3 ml INH RTID [facility] Last Admin: 05/16/18 19:38 Dose: 3 ml Cyanocobalamin (Vitamin B-12) 250 mcg PO DAILY [facility] Last Admin: 05/16/18 09:20 Dose: 250 mcg Digoxin (Digoxin) 0.125 mg PO TUTH [facility] Last Admin: 05/13/18 08:59 Dose: 0.125 mg Digoxin (Digoxin) 0.125 mg PO FRI [facility] Last Admin: 05/14/18 08:33 Dose: 0.125 mg Digoxin (Digoxin) 0.125 mg PO SUN [facility] Last Admin: 05/16/18 09:21 Dose: 0.125 mg Digoxin (Lanoxin) 0.25 mg PO WED [facility] Last Admin: 05/12/18 10:46 Dose: 0.25 mg Digoxin (Lanoxin) 0.25 mg PO SAT [facility] Last Admin: 05/15/18 09:51 Dose: 0.25 mg Digoxin (Digoxin) 0.125 mg PO MON [facility] Last Admin: 05/10/18 08:53 Dose: 0.125 mg Ergocalciferol (Drisdol 50,000 Intl Units Cap) 1 cap PO MO [facility] Last Admin: 05/10/18 11:55 Dose: 1 cap Piperacillin Sod/Tazobactam (Sod 3.375 gm/ Sodium Chloride) 100 mls @ 100 mls/hr IVPB Q8 [facility]; Protocol Last Admin: 05/16/18 17:49 Dose: 100 mls/hr Levothyroxine Sodium (Synthroid) 225 mcg PO DAILY@0630 [facility] Last Admin: 05/16/18 05:49 Dose: 225 mcg Midodrine (Proamatine) 5 mg PO TID [facility] Last Admin: 05/16/18 17:48 Dose: 5 mg Multivitamins/Minerals (Therapeutic-M Tab) 1 tab PO DAILY [facility] Last Admin: 05/16/18 09:20 Dose: 1 tab Mupirocin (Bactroban Ointment) 1 applic TOP BID [facility] Last Admin: 05/16/18 17:47 Dose: 1 applic Rivaroxaban (Xarelto) 15 mg PO DAILY [facility]; Protocol Last Admin: 05/14/18 08:35 Dose: 15 mg - Labs Labs: 05/13/18 10:30 05/13/18 10:30 PT 23.5 Seconds (9.8-13.1) H 05/06/18 00:05 INR 2.1 05/06/18 00:05 APTT 35.4 Seconds (25.6-37.1) 05/06/18 00:05 - Head Exam Head Exam: NORMAL INSPECTION - Eye Exam Eye Exam: Normal appearance - ENT Exam ENT Exam: Mucous Membranes Moist - Respiratory Exam Respiratory Exam: Clear to Ausculation Bilateral - Cardiovascular Exam Cardiovascular Exam: REGULAR RHYTHM - GI/Abdominal Exam GI & Abdominal Exam: Soft Assessment and Plan (1) Syncope Status: Acute (2) Orthostatic hypotension Status: Acute (3) Chronic a-fib Status: Acute (4) Bacteremia Status: Acute (5) UTI (urinary tract infection) Status: Acute - Assessment and Plan (Free Text) Plan: Conr t meds monitor orthostasis Dc Bp meds compression stockings Cont telemetry IV antibiotics
--- NOTE | 2018-05-16 21:39 | CP.PCM.PN ---
Subjective - Date & Time of Evaluation Date of Evaluation: 05/14/18 Time of Evaluation: 11:00 - Subjective Subjective: Noted significnat orthostasis . BP meds dc'd Still on flomax Slightly congested and coughing. Has no fever. Objective - Vital Signs/Intake and Output Vital Signs (last 24 hours): Temp Pulse Resp BP Pulse Ox 98.2 F 60 18 95/59 L 94 L 05/16/18 20:21 05/16/18 20:27 05/16/18 20:21 05/16/18 20:21 05/16/18 20:21 - Medications Medications: Current Medications Albuterol/Ipratropium (Duoneb 3 Mg/0.5 Mg (3 Ml) Ud) 3 ml INH RTID [facility] Last Admin: 05/16/18 19:38 Dose: 3 ml Cyanocobalamin (Vitamin B-12) 250 mcg PO DAILY [facility] Last Admin: 05/16/18 09:20 Dose: 250 mcg Digoxin (Digoxin) 0.125 mg PO TUTH [facility] Last Admin: 05/13/18 08:59 Dose: 0.125 mg Digoxin (Digoxin) 0.125 mg PO FRI [facility] Last Admin: 05/14/18 08:33 Dose: 0.125 mg Digoxin (Digoxin) 0.125 mg PO SUN [facility] Last Admin: 05/16/18 09:21 Dose: 0.125 mg Digoxin (Lanoxin) 0.25 mg PO WED [facility] Last Admin: 05/12/18 10:46 Dose: 0.25 mg Digoxin (Lanoxin) 0.25 mg PO SAT [facility] Last Admin: 05/15/18 09:51 Dose: 0.25 mg Digoxin (Digoxin) 0.125 mg PO MON [facility] Last Admin: 05/10/18 08:53 Dose: 0.125 mg Ergocalciferol (Drisdol 50,000 Intl Units Cap) 1 cap PO MO [facility] Last Admin: 05/10/18 11:55 Dose: 1 cap Piperacillin Sod/Tazobactam (Sod 3.375 gm/ Sodium Chloride) 100 mls @ 100 mls/hr IVPB Q8 [facility]; Protocol Last Admin: 05/16/18 17:49 Dose: 100 mls/hr Levothyroxine Sodium (Synthroid) 225 mcg PO DAILY@0630 [facility] Last Admin: 05/16/18 05:49 Dose: 225 mcg Midodrine (Proamatine) 5 mg PO TID [facility] Last Admin: 05/16/18 17:48 Dose: 5 mg Multivitamins/Minerals (Therapeutic-M Tab) 1 tab PO DAILY [facility] Last Admin: 05/16/18 09:20 Dose: 1 tab Mupirocin (Bactroban Ointment) 1 applic TOP BID [facility] Last Admin: 05/16/18 17:47 Dose: 1 applic Rivaroxaban (Xarelto) 15 mg PO DAILY [facility]; Protocol Last Admin: 05/14/18 08:35 Dose: 15 mg - Labs Labs: 05/13/18 10:30 05/13/18 10:30 PT 23.5 Seconds (9.8-13.1) H 05/06/18 00:05 INR 2.1 05/06/18 00:05 APTT 35.4 Seconds (25.6-37.1) 05/06/18 00:05 - Head Exam Head Exam: NORMAL INSPECTION - Eye Exam Eye Exam: Normal appearance - ENT Exam ENT Exam: Mucous Membranes Moist - Respiratory Exam Respiratory Exam: NORMAL BREATHING PATTERN - Cardiovascular Exam Cardiovascular Exam: Irregular Rhythm - GI/Abdominal Exam GI & Abdominal Exam: Soft Assessment and Plan (1) Bacteremia Status: Acute (2) Orthostatic hypotension Status: Acute (3) Syncope Status: Acute - Assessment and Plan (Free Text) Plan: Cont meds start Midodrine cont monitor orthostasis
--- NOTE | 2018-05-16 21:41 | CP.PCM.PN ---
Subjective - Date & Time of Evaluation Date of Evaluation: 05/15/18 Time of Evaluation: 15:40 - Subjective Subjective: Patient is much more stable Has lsight cough Still with osthostatic BP Has no chest pain or SOB Objective - Vital Signs/Intake and Output Vital Signs (last 24 hours): Temp Pulse Resp BP Pulse Ox 98.2 F 60 18 95/59 L 94 L 05/16/18 20:21 05/16/18 20:27 05/16/18 20:21 05/16/18 20:21 05/16/18 20:21 - Medications Medications: Current Medications Albuterol/Ipratropium (Duoneb 3 Mg/0.5 Mg (3 Ml) Ud) 3 ml INH RTID [facility] Last Admin: 05/16/18 19:38 Dose: 3 ml Cyanocobalamin (Vitamin B-12) 250 mcg PO DAILY [facility] Last Admin: 05/16/18 09:20 Dose: 250 mcg Digoxin (Digoxin) 0.125 mg PO TUTH [facility] Last Admin: 05/13/18 08:59 Dose: 0.125 mg Digoxin (Digoxin) 0.125 mg PO FRI [facility] Last Admin: 05/14/18 08:33 Dose: 0.125 mg Digoxin (Digoxin) 0.125 mg PO SUN [facility] Last Admin: 05/16/18 09:21 Dose: 0.125 mg Digoxin (Lanoxin) 0.25 mg PO WED [facility] Last Admin: 05/12/18 10:46 Dose: 0.25 mg Digoxin (Lanoxin) 0.25 mg PO SAT [facility] Last Admin: 05/15/18 09:51 Dose: 0.25 mg Digoxin (Digoxin) 0.125 mg PO MON [facility] Last Admin: 05/10/18 08:53 Dose: 0.125 mg Ergocalciferol (Drisdol 50,000 Intl Units Cap) 1 cap PO MO [facility] Last Admin: 05/10/18 11:55 Dose: 1 cap Piperacillin Sod/Tazobactam (Sod 3.375 gm/ Sodium Chloride) 100 mls @ 100 mls/hr IVPB Q8 [facility]; Protocol Last Admin: 05/16/18 17:49 Dose: 100 mls/hr Levothyroxine Sodium (Synthroid) 225 mcg PO DAILY@0630 [facility] Last Admin: 05/16/18 05:49 Dose: 225 mcg Midodrine (Proamatine) 5 mg PO TID [facility] Last Admin: 05/16/18 17:48 Dose: 5 mg Multivitamins/Minerals (Therapeutic-M Tab) 1 tab PO DAILY [facility] Last Admin: 05/16/18 09:20 Dose: 1 tab Mupirocin (Bactroban Ointment) 1 applic TOP BID [facility] Last Admin: 05/16/18 17:47 Dose: 1 applic Rivaroxaban (Xarelto) 15 mg PO DAILY [facility]; Protocol Last Admin: 05/14/18 08:35 Dose: 15 mg - Labs Labs: 05/13/18 10:30 05/13/18 10:30 PT 23.5 Seconds (9.8-13.1) H 05/06/18 00:05 INR 2.1 05/06/18 00:05 APTT 35.4 Seconds (25.6-37.1) 05/06/18 00:05 - Head Exam Head Exam: NORMAL INSPECTION - Eye Exam Eye Exam: Normal appearance - ENT Exam ENT Exam: Mucous Membranes Moist - Respiratory Exam Respiratory Exam: Decreased Breath Sounds - Cardiovascular Exam Cardiovascular Exam: Irregular Rhythm - GI/Abdominal Exam GI & Abdominal Exam: Soft Assessment and Plan (1) Bacteremia Status: Acute (2) Orthostatic hypotension Status: Acute (3) Syncope Status: Acute - Assessment and Plan (Free Text) Plan: Cont meds Cont tx Cont Lasix If continues to have low BP will dc flomax and lasix in am
--- NOTE | 2018-05-16 21:43 | CP.PCM.PN ---
Subjective - Date & Time of Evaluation Date of Evaluation: 05/16/18 Time of Evaluation: 16:00 - Subjective Subjective: Patient still has orthos BP Has no chest pain or SOB Has no fever. Objective - Vital Signs/Intake and Output Vital Signs (last 24 hours): Temp Pulse Resp BP Pulse Ox 98.2 F 60 18 95/59 L 94 L 05/16/18 20:21 05/16/18 20:27 05/16/18 20:21 05/16/18 20:21 05/16/18 20:21 - Medications Medications: Current Medications Albuterol/Ipratropium (Duoneb 3 Mg/0.5 Mg (3 Ml) Ud) 3 ml INH RTID [facility] Last Admin: 05/16/18 19:38 Dose: 3 ml Cyanocobalamin (Vitamin B-12) 250 mcg PO DAILY [facility] Last Admin: 05/16/18 09:20 Dose: 250 mcg Digoxin (Digoxin) 0.125 mg PO TUTH [facility] Last Admin: 05/13/18 08:59 Dose: 0.125 mg Digoxin (Digoxin) 0.125 mg PO FRI [facility] Last Admin: 05/14/18 08:33 Dose: 0.125 mg Digoxin (Digoxin) 0.125 mg PO SUN [facility] Last Admin: 05/16/18 09:21 Dose: 0.125 mg Digoxin (Lanoxin) 0.25 mg PO WED [facility] Last Admin: 05/12/18 10:46 Dose: 0.25 mg Digoxin (Lanoxin) 0.25 mg PO SAT [facility] Last Admin: 05/15/18 09:51 Dose: 0.25 mg Digoxin (Digoxin) 0.125 mg PO MON [facility] Last Admin: 05/10/18 08:53 Dose: 0.125 mg Ergocalciferol (Drisdol 50,000 Intl Units Cap) 1 cap PO MO [facility] Last Admin: 05/10/18 11:55 Dose: 1 cap Piperacillin Sod/Tazobactam (Sod 3.375 gm/ Sodium Chloride) 100 mls @ 100 mls/ hr IVPB Q8 [facility]; Protocol Last Admin: 05/16/18 17:49 Dose: 100 mls/hr Levothyroxine Sodium (Synthroid) 225 mcg PO DAILY@0630 [facility] Last Admin: 05/16/18 05:49 Dose: 225 mcg Midodrine (Proamatine) 5 mg PO TID [facility] Last Admin: 05/16/18 17:48 Dose: 5 mg Multivitamins/Minerals (Therapeutic-M Tab) 1 tab PO DAILY [facility] Last Admin: 05/16/18 09:20 Dose: 1 tab Mupirocin (Bactroban Ointment) 1 applic TOP BID [facility] Last Admin: 05/16/18 17:47 Dose: 1 applic Rivaroxaban (Xarelto) 15 mg PO DAILY [facility]; Protocol Last Admin: 05/14/18 08:35 Dose: 15 mg - Labs Labs: 05/13/18 10:30 05/13/18 10:30 PT 23.5 Seconds (9.8-13.1) H 05/06/18 00:05 INR 2.1 05/06/18 00:05 APTT 35.4 Seconds (25.6-37.1) 05/06/18 00:05 - Head Exam Head Exam: NORMAL INSPECTION - Eye Exam Eye Exam: Normal appearance - ENT Exam ENT Exam: Mucous Membranes Moist - Respiratory Exam Respiratory Exam: Clear to Ausculation Bilateral - Cardiovascular Exam Cardiovascular Exam: Irregular Rhythm - GI/Abdominal Exam GI & Abdominal Exam: Soft Assessment and Plan (1) Bacteremia Status: Acute (2) Orthostatic hypotension Status: Acute (3) Syncope Status: Acute - Assessment and Plan (Free Text) Plan: Cont meds Cont tx Cont PT DC Flomax and lasix compression stockings/ brian bandage on both lower ext
[2018-05-17] MEDS: Piperacillin/Tazobact 3.375 GM in Sodium Chloride 0.9% 100 ML IVPB SCH ×3 (00:09→16:40)
[2018-05-17] MEDS: Levothyroxine 75 MCG TAB PO SCH (06:38)
[2018-05-17] MEDS: Albuterol-Ipratrop 3 mg / 0.5 (3 ml) UD INH SCH ×3 (07:31→19:20)
--- NOTE | 2018-05-17 08:15 | RAD ---
Date of service: 05/16/2018 HISTORY: sob COMPARISON: Frontal chest radiograph 05/05/2018. TECHNIQUE: 1 view obtained. FINDINGS: LUNGS: No active pulmonary disease. PLEURA: No significant pleural effusion identified, no pneumothorax apparent. CARDIOVASCULAR: Calcific atherosclerotic changes are seen related to the thoracic aorta. Limited cardiomegaly evident. No pulmonary vascular congestion. Permanent pacemaker again evident. OSSEOUS STRUCTURES: No significant abnormalities. VISUALIZED UPPER ABDOMEN: Normal. OTHER FINDINGS: None. IMPRESSION: Resolution of prior pulmonary vascular congestion. Limited cardiomegaly unchanged. No acute infiltrates bilaterally.
[2018-05-17] MEDS: Mupirocin 2% Oint 1GM UD TOP SCH ×2 (08:41→16:39)
[2018-05-17] MEDS: Digoxin 125 mcg (0.125 mg) Tab PO SCH (08:46)
[2018-05-17] MEDS: Multivitamin With Minerals Tab PO SCH (08:47)
[2018-05-17] MEDS: CYANOCOBALAMIN (VITAMIN B-12) 250 MCG TABLET PO SCH (08:50)
[2018-05-17 09:10] LABS: HEMOGLOBIN 12.7 g/dL (12.0-18.0); MEAN CELL VOLUME 95.6 fl (80.0-94.0); MEAN CORPUSCULAR HEMOGLOBIN 30.8 pg (27.0-31.0); MEAN CORPUSCULAR HGB CONC 32.3 g/dL (33.0-37.0); RBC 4.11 Mil/uL (4.40-5.90); RED CELL DISTRIBUTION WIDTH 14.8 % (11.5-14.5)
--- NOTE | 2018-05-17 09:16 | CP.PCM.PN ---
Subjective - Date & Time of Evaluation Date of Evaluation: 05/17/18 Time of Evaluation: 09:13 - Subjective Subjective: Podiatry progress note - Dr. Davenport 82M seen and evaluated this AM for R submetatarsal 5 ulceration and L preulcerative submetatarsal 5 lesion. Resting comfortably. Patient states that his foot only causes pain when he ambulates. Denies n/v/f/c/sob and has no other acute complaints. Objective - Vital Signs/Intake and Output Vital Signs (last 24 hours): Temp Pulse Resp BP Pulse Ox 98.5 F 58 L 18 111/74 95 05/17/18 07:53 05/17/18 07:53 05/17/18 07:53 05/17/18 07:53 05/17/18 07:53 - Medications Medications: Current Medications Albuterol/Ipratropium (Duoneb 3 Mg/0.5 Mg (3 Ml) Ud) 3 ml INH RTID [facility] Last Admin: 05/17/18 07:31 Dose: 3 ml Cyanocobalamin (Vitamin B-12) 250 mcg PO DAILY [facility] Last Admin: 05/17/18 08:50 Dose: 250 mcg Digoxin (Digoxin) 0.125 mg PO TUTH [facility] Last Admin: 05/13/18 08:59 Dose: 0.125 mg Digoxin (Digoxin) 0.125 mg PO FRI [facility] Last Admin: 05/14/18 08:33 Dose: 0.125 mg Digoxin (Digoxin) 0.125 mg PO SUN [facility] Last Admin: 05/16/18 09:21 Dose: 0.125 mg Digoxin (Lanoxin) 0.25 mg PO WED [facility] Last Admin: 05/12/18 10:46 Dose: 0.25 mg Digoxin (Lanoxin) 0.25 mg PO SAT [facility] Last Admin: 05/15/18 09:51 Dose: 0.25 mg Digoxin (Digoxin) 0.125 mg PO MON [facility] Last Admin: 05/17/18 08:46 Dose: 0.125 mg Ergocalciferol (Drisdol 50,000 Intl Units Cap) 1 cap PO MO [facility] Last Admin: 05/10/18 11:55 Dose: 1 cap Piperacillin Sod/Tazobactam (Sod 3.375 gm/ Sodium Chloride) 100 mls @ 100 mls/hr IVPB Q8 [facility]; Protocol Last Admin: 05/17/18 08:52 Dose: 100 mls/hr Levothyroxine Sodium (Synthroid) 225 mcg PO DAILY@0630 [facility] Last Admin: 05/17/18 06:38 Dose: 225 mcg Midodrine (Proamatine) 5 mg PO TID [facility] Last Admin: 05/17/18 08:47 Dose: 5 mg Multivitamins/Minerals (Therapeutic-M Tab) 1 tab PO DAILY [facility] Last Admin: 05/17/18 08:47 Dose: 1 tab Mupirocin (Bactroban Ointment) 1 applic TOP BID [facility] Last Admin: 05/17/18 08:41 Dose: 1 applic Rivaroxaban (Xarelto) 15 mg PO DAILY [facility]; Protocol Last Admin: 05/14/18 08:35 Dose: 15 mg - Labs Labs: 05/13/18 10:30 05/13/18 10:30 PT 23.5 Seconds (9.8-13.1) H 05/06/18 00:05 INR 2.1 05/06/18 00:05 APTT 35.4 Seconds (25.6-37.1) 05/06/18 00:05 - Constitutional Appears: Non-toxic - Head Exam Head Exam: ATRAUMATIC - Extremities Exam Additional comments: B/l extremity exam Vasc: DP and PT nonpalpable, temperature gradient cool to cool, CFT <4 seconds to the digits, edema noted to the LE bilaterally Ortho: MMT is 5/5 in all four compartments, tenderness noted to palpation surrounding ulceration site Neuro: Gross sensation intact, protective sensation diminished Derm: Ulceration secondary to pressure appreciated to the R submetatarsal 5 with no exposed bone, stage II. No drainage appreciated with hyperkeratotic rim. No purulence, no erythema, no cellulitis, no clinical signs of infection. L submetatarsal 5 pre-ulcerative lesion appreciated, stage I . - Neurological Exam Neurological Exam: Alert, Awake, Oriented x3 - Psychiatric Exam Psychiatric exam: Normal Affect Assessment and Plan - Assessment and Plan (Free Text) Assessment: 82M with R submetatarsal 5 ulceration, stage II, and L preulcerative s ubmetatarsal 5 lesion, stage I, secondary to pressure; stable and improving Plan: Patient was examined and evaluated at bedside Discussed with Dr. Davenport Charts, labs, vitals reviewed: WBC 14.0, afebrile R foot x-ray ordered; Slight cortical irregularity of the lateral aspect of the 5th metatarsal. Possibility of underlying OM cannot be excluded R foot wound culture taken; ecoli, staph aureus Abx per ID reccs Bactroban ordered Bone scan ordered to r/o OM 5th met R; no evidence of OM Ulceration cleansed, dressed with bactroban, optifoam F/u with Dr. Davenport upon d/c Will continue to follow
[2018-05-17 09:23] LABS: BLOOD UREA NITROGEN 24 mg/dl (9-20); GFR NON-AFRICAN AMERICAN > 60
--- NOTE | 2018-05-17 11:41 | CP.PCM.PN ---
Subjective - Date & Time of Evaluation Date of Evaluation: 05/17/18 Time of Evaluation: 09:00 - Subjective Subjective: no new complaints denies fever Objective - Vital Signs/Intake and Output Vital Signs (last 24 hours): Temp Pulse Resp BP Pulse Ox 98.5 F 60 18 111/78 95 05/17/18 08:55 05/17/18 08:55 05/17/18 08:55 05/17/18 08:55 05/17/18 08:55 - Medications Medications: Current Medications Albuterol/Ipratropium (Duoneb 3 Mg/0.5 Mg (3 Ml) Ud) 3 ml INH RTID [facility] Last Admin: 05/17/18 07:31 Dose: 3 ml Cyanocobalamin (Vitamin B-12) 250 mcg PO DAILY [facility] Last Admin: 05/17/18 08:50 Dose: 250 mcg Digoxin (Digoxin) 0.125 mg PO TUTH [facility] Last Admin: 05/13/18 08:59 Dose: 0.125 mg Digoxin (Digoxin) 0.125 mg PO FRI [facility] Last Admin: 05/14/18 08:33 Dose: 0.125 mg Digoxin (Digoxin) 0.125 mg PO SUN [facility] Last Admin: 05/16/18 09:21 Dose: 0.125 mg Digoxin (Lanoxin) 0.25 mg PO WED [facility] Last Admin: 05/12/18 10:46 Dose: 0.25 mg Digoxin (Lanoxin) 0.25 mg PO SAT [facility] Last Admin: 05/15/18 09:51 Dose: 0.25 mg Digoxin (Digoxin) 0.125 mg PO MON [facility] Last Admin: 05/17/18 08:46 Dose: 0.125 mg Ergocalciferol (Drisdol 50,000 Intl Units Cap) 1 cap PO MO [facility] Last Admin: 05/10/18 11:55 Dose: 1 cap Piperacillin Sod/Tazobactam (Sod 3.375 gm/ Sodium Chloride) 100 mls @ 100 mls/hr IVPB Q8 [facility]; Protocol Last Admin: 05/17/18 08:52 Dose: 100 mls/hr Levothyroxine Sodium (Synthroid) 225 mcg PO DAILY@0630 [facility] Last Admin: 05/17/18 06:38 Dose: 225 mcg Midodrine (Proamatine) 5 mg PO TID [facility] Last Admin: 05/17/18 08:47 Dose: 5 mg Multivitamins/Minerals (Therapeutic-M Tab) 1 tab PO DAILY [facility] Last Admin: 05/17/18 08:47 Dose: 1 tab Mupirocin (Bactroban Ointment) 1 applic TOP BID [facility] Last Admin: 05/17/18 08:41 Dose: 1 applic Rivaroxaban (Xarelto) 15 mg PO DAILY [facility]; Protocol Last Admin: 05/14/18 08:35 Dose: 15 mg - Labs Labs: 05/17/18 08:55 05/17/18 08:55 PT 23.5 Seconds (9.8-13.1) H 05/06/18 00:05 INR 2.1 05/06/18 00:05 APTT 35.4 Seconds (25.6-37.1) 05/06/18 00:05 - Constitutional Appears: Non-toxic, Chronically Ill - Head Exam Head Exam: ATRAUMATIC, NORMAL INSPECTION, NORMOCEPHALIC - Eye Exam Eye Exam: EOMI, Normal appearance, PERRL Pupil Exam: NORMAL ACCOMODATION, PERRL - ENT Exam ENT Exam: Mucous Membranes Moist, Normal Exam - Neck Exam Neck Exam: Full ROM, Normal Inspection. absent: Lymphadenopathy - Respiratory Exam Respiratory Exam: Clear to Ausculation Bilateral, NORMAL BREATHING PATTERN - Cardiovascular Exam Cardiovascular Exam: REGULAR RHYTHM, +S1, +S2. absent: Murmur - GI/Abdominal Exam GI & Abdominal Exam: Soft, Normal Bowel Sounds. absent: Tenderness - Rectal Exam Rectal Exam: Deferred - Exam Speculum exam: NORMAL SPECULUM EXAM Bimanual exam: NORMAL BIMANUAL EXAM - Extremities Exam Extremities Exam: Full ROM, Pedal Edema. absent: Joint Swelling, Normal Capillary Refill, Normal Inspection Additional comments: ulcers both feet stable - Psychiatric Exam Psychiatric exam: Normal Affect, Normal Mood - Skin Skin Exam: Dry, Intact, Normal Color, Warm Assessment and Plan (1) Syncope Status: Acute (2) UTI (urinary tract infection) Status: Acute (3) NICOLLE (acute kidney injury) Status: Acute (4) Abnormal gait Status: Acute (5) CKD (chronic kidney disease) stage 2, GFR 60-89 ml/min Status: Acute (6) Chest pain Status: Acute (7) Chronic a-fib Status: Acute (8) Debility Status: Acute (9) Dehydration Status: Acute - Assessment and Plan (Free Text) Assessment: staph sepsis r/o endocarditis bilat foot wounds cont rx as planned for [facility]
--- NOTE | 2018-05-17 11:46 | CP.PCM.PN ---
Subjective - Date & Time of Evaluation Date of Evaluation: 05/17/18 Time of Evaluation: 11:44 - Subjective Subjective: Colleen Jama, PGY-1, Cardiology Progress Note for Dr. Welch Patient was seen and examined at bedside. Patient had no acute overnight events. Patient denies any symptoms at this time. Patient's last syncopal episode was over one week ago. Objective - Vital Signs/Intake and Output Vital Signs (last 24 hours): Temp Pulse Resp BP Pulse Ox 98.5 F 60 18 111/78 95 05/17/18 08:55 05/17/18 08:55 05/17/18 08:55 05/17/18 08:55 05/17/18 08:55 - Medications Medications: Current Medications Albuterol/Ipratropium (Duoneb 3 Mg/0.5 Mg (3 Ml) Ud) 3 ml INH RTID [facility] Last Admin: 05/17/18 07:31 Dose: 3 ml Cyanocobalamin (Vitamin B-12) 250 mcg PO DAILY [facility] Last Admin: 05/17/18 08:50 Dose: 250 mcg Digoxin (Digoxin) 0.125 mg PO TUTH [facility] Last Admin: 05/13/18 08:59 Dose: 0.125 mg Digoxin (Digoxin) 0.125 mg PO FRI [facility] Last Admin: 05/14/18 08:33 Dose: 0.125 mg Digoxin (Digoxin) 0.125 mg PO SUN [facility] Last Admin: 05/16/18 09:21 Dose: 0.125 mg Digoxin (Lanoxin) 0.25 mg PO WED [facility] Last Admin: 05/12/18 10:46 Dose: 0.25 mg Digoxin (Lanoxin) 0.25 mg PO SAT [facility] Last Admin: 05/15/18 09:51 Dose: 0.25 mg Digoxin (Digoxin) 0.125 mg PO MON [facility] Last Admin: 05/17/18 08:46 Dose: 0.125 mg Ergocalciferol (Drisdol 50,000 Intl Units Cap) 1 cap PO MO [facility] Last Admin: 05/10/18 11:55 Dose: 1 cap Piperacillin Sod/Tazobactam (Sod 3.375 gm/ Sodium Chloride) 100 mls @ 100 mls/hr IVPB Q8 [facility]; Protocol Last Admin: 05/17/18 08:52 Dose: 100 mls/hr Levothyroxine Sodium (Synthroid) 225 mcg PO DAILY@0630 [facility] Last Admin: 05/17/18 06:38 Dose: 225 mcg Midodrine (Proamatine) 5 mg PO TID [facility] Last Admin: 05/17/18 08:47 Dose: 5 mg Multivitamins/Minerals (Therapeutic-M Tab) 1 tab PO DAILY [facility] Last Admin: 05/17/18 08:47 Dose: 1 tab Mupirocin (Bactroban Ointment) 1 applic TOP BID [facility] Last Admin: 05/17/18 08:41 Dose: 1 applic Rivaroxaban (Xarelto) 15 mg PO DAILY [facility]; Protocol Last Admin: 05/14/18 08:35 Dose: 15 mg - Labs Labs: 05/17/18 08:55 05/17/18 08:55 PT 23.5 Seconds (9.8-13.1) H 05/06/18 00:05 INR 2.1 05/06/18 00:05 APTT 35.4 Seconds (25.6-37.1) 05/06/18 00:05 - Constitutional Appears: Well, Non-toxic, No Acute Distress - Head Exam Head Exam: ATRAUMATIC, NORMAL INSPECTION, NORMOCEPHALIC - Eye Exam Eye Exam: EOMI, PERRL - ENT Exam ENT Exam: Mucous Membranes Moist - Respiratory Exam Respiratory Exam: Clear to Ausculation Bilateral, NORMAL BREATHING PATTERN. absent: Rales, Rhonchi, Wheezes - Cardiovascular Exam Cardiovascular Exam: REGULAR RHYTHM, RRR, +S1, +S2, Murmur (LLSB holosystolic blowing murmur) - GI/Abdominal Exam GI & Abdominal Exam: Soft, Normal Bowel Sounds. absent: Tenderness - Extremities Exam Extremities Exam: Full ROM, Normal Capillary Refill, Normal Inspection - Neurological Exam Neurological Exam: Alert, Awake, CN II-XII Intact, Oriented x3 - Skin Additional comments: bilateral lower extremities warm and darkened Assessment and Plan (1) Bacteremia Assessment & Plan: Likely 2/2 to UTI vs. cellulitis Patient was positive for S. Aureus on blood culture on 05/05/18 Patient has been negative for blood culture for 5 days since 05/07/18 Status: Acute (2) Syncope Assessment & Plan: Echocardiogram from 05/10: LVEF of 55-60%, severely dilated LA, dilated RA, mild AR, moderate aortic stenosis with AV are of 1.25 cm2, mild MR, moderate TR, RVSP of 30 Carotid ultrasound: no significant stenosis noted EKG on admission: ventricular paced rhythm with HR of 69 Significant orthostatic vital signs with drop of systolic blood pressure of more than 20 from lying to standing. Echocardiogram shows significant finding of moderate aortic stenosis which could cause the syncopal episodes. Urine osmolarity was high, likely signifying patient is dehydrated As severe could be contributing to patient's episodes of syncope, will plan for cardiac catheterization for tomorrow Status: Acute (3) UTI (urinary tract infection) Assessment & Plan: UCx positive for Morg Morganii. Continue with antibiotics Status: Acute (4) Hypothyroidism Assessment & Plan: Continue with synthroid Status: Acute
[2018-05-17] MEDS: Ergocalciferol 50,000 Intl Units Cap PO SCH (16:39)
--- NOTE | 2018-05-17 23:07 | CP.PCM.PN ---
Subjective - Date & Time of Evaluation Date of Evaluation: 05/17/18 Time of Evaluation: 10:30 - Subjective Subjective: patient seen and examined at bedside. Interim events noted No complaints offered at this time denies cp/sob/fever/chills. available diagnostic data reviewed Review of Systems All systems: reviewed and no additional remarkable complaints except mentioned above Objective Vital Signs Stable - Constitutional Appears: Non-toxic, No Acute Distress Head Exam: NORMAL INSPECTION Eye Exam: Normal appearance Respiratory Exam: NORMAL BREATHING PATTERN Cardiovascular Exam: +S1, +S2 GI & Abdominal Exam: Soft Neurological Exam: Alert, Awake Psychiatric exam: Normal Affect, Normal Mood Skin Exam: Normal Color, Warm Assessment and Plan monitor vitals monitor labs Cont meds Cont tx consultants appreciated input for cardiac cath tomorrow rest of plan as ordered Objective - Vital Signs/Intake and Output Vital Signs (last 24 hours): Temp Pulse Resp BP Pulse Ox 98.4 F 60 18 101/62 97 05/17/18 19:52 05/17/18 21:00 05/17/18 19:52 05/17/18 19:52 05/17/18 19:52 Intake and Output: 05/17/18 05/18/18 18:59 06:59 Intake Total 240 Balance 240 - Medications Medications: Current Medications Albuterol/Ipratropium (Duoneb 3 Mg/0.5 Mg (3 Ml) Ud) 3 ml INH RTID [facility] Last Admin: 05/17/18 19:20 Dose: 3 ml Cyanocobalamin (Vitamin B-12) 250 mcg PO DAILY [facility] Last Admin: 05/17/18 08:50 Dose: 250 mcg Digoxin (Digoxin) 0.125 mg PO TUTH [facility] Last Admin: 05/13/18 08:59 Dose: 0.125 mg Digoxin (Digoxin) 0.125 mg PO FRI [facility] Last Admin: 05/14/18 08:33 Dose: 0.125 mg Digoxin (Digoxin) 0.125 mg PO SUN [facility] Last Admin: 05/16/18 09:21 Dose: 0.125 mg Digoxin (Lanoxin) 0.25 mg PO WED [facility] Last Admin: 05/12/18 10:46 Dose: 0.25 mg Digoxin (Lanoxin) 0.25 mg PO SAT [facility] Last Admin: 05/15/18 09:51 Dose: 0.25 mg Digoxin (Digoxin) 0.125 mg PO MON [facility] Last Admin: 05/17/18 08:46 Dose: 0.125 mg Ergocalciferol (Drisdol 50,000 Intl Units Cap) 1 cap PO MO [facility] Last Admin: 05/17/18 16:39 Dose: 1 cap Piperacillin Sod/Tazobactam (Sod 3.375 gm/ Sodium Chloride) 100 mls @ 100 mls/hr IVPB Q8 [facility]; Protocol Last Admin: 05/17/18 16:40 Dose: 100 mls/hr Levothyroxine Sodium (Synthroid) 225 mcg PO DAILY@0630 [facility] Last Admin: 05/17/18 06:38 Dose: 225 mcg Midodrine (Proamatine) 5 mg PO TID [facility] Last Admin: 05/17/18 16:40 Dose: 5 mg Multivitamins/Minerals (Therapeutic-M Tab) 1 tab PO DAILY [facility] Last Admin: 05/17/18 08:47 Dose: 1 tab Mupirocin (Bactroban Ointment) 1 applic TOP BID [facility] Last Admin: 05/17/18 16:39 Dose: 1 applic Rivaroxaban (Xarelto) 15 mg PO DAILY [facility]; Protocol Last Admin: 05/14/18 08:35 Dose: 15 mg - Labs Labs: 05/17/18 08:55 05/17/18 08:55 PT 23.5 Seconds (9.8-13.1) H 05/06/18 00:05 INR 2.1 05/06/18 00:05 APTT 35.4 Seconds (25.6-37.1) 05/06/18 00:05 Assessment and Plan (1) Bacteremia Status: Acute (2) Orthostatic hypotension Status: Acute (3) Aortic stenosis Status: Acute
[2018-05-18] MEDS: Levothyroxine 75 MCG TAB PO SCH (05:33)
[2018-05-18 05:49] LABS: INR 1.2; PROTHROMBIN TIME 13.3 Seconds (9.8-13.1)
[2018-05-18 05:52] LABS: PARTIAL THROMBOPLASTIN TIME 34.2 Seconds (25.6-37.1)
[2018-05-18] MEDS: Albuterol-Ipratrop 3 mg / 0.5 (3 ml) UD INH SCH ×2 (07:44→13:07)
[2018-05-18] MEDS: Piperacillin/Tazobact 3.375 GM in Sodium Chloride 0.9% 100 ML IVPB SCH ×3 (08:21→16:21)
[2018-05-18] MEDS: Digoxin 125 mcg (0.125 mg) Tab PO SCH ×2 (08:24→15:29)
--- NOTE | 2018-05-18 08:44 | CP.PCM.PN ---
Subjective - Date & Time of Evaluation Date of Evaluation: 05/18/18 Time of Evaluation: 08:42 - Subjective Subjective: Colleen Jama, PGY-1, Cardiology Progress Note for Dr. Welch Patient was seen and examined at bedside. Patient had no acute overnight events. Patient denies any symptoms at this time. Patient's last syncopal episode was over one week ago. Objective - Vital Signs/Intake and Output Vital Signs (last 24 hours): Temp Pulse Resp BP Pulse Ox 98.4 F 60 18 111/72 96 05/18/18 08:00 05/18/18 08:00 05/18/18 08:00 05/18/18 08:00 05/18/18 08:00 - Medications Medications: Current Medications Albuterol/Ipratropium (Duoneb 3 Mg/0.5 Mg (3 Ml) Ud) 3 ml INH RTID [facility] Last Admin: 05/18/18 07:44 Dose: 3 ml Cyanocobalamin (Vitamin B-12) 250 mcg PO DAILY [facility] Last Admin: 05/17/18 08:50 Dose: 250 mcg Digoxin (Digoxin) 0.125 mg PO TUTH [facility] Last Admin: 05/18/18 08:24 Dose: 0.125 mg Digoxin (Digoxin) 0.125 mg PO FRI [facility] Last Admin: 05/14/18 08:33 Dose: 0.125 mg Digoxin (Digoxin) 0.125 mg PO SUN [facility] Last Admin: 05/16/18 09:21 Dose: 0.125 mg Digoxin (Lanoxin) 0.25 mg PO WED [facility] Last Admin: 05/12/18 10:46 Dose: 0.25 mg Digoxin (Lanoxin) 0.25 mg PO SAT [facility] Last Admin: 05/15/18 09:51 Dose: 0.25 mg Digoxin (Digoxin) 0.125 mg PO MON [facility] Last Admin: 05/17/18 08:46 Dose: 0.125 mg Ergocalciferol (Drisdol 50,000 Intl Units Cap) 1 cap PO MO [facility] Last Admin: 05/17/18 16:39 Dose: 1 cap Piperacillin Sod/Tazobactam (Sod 3.375 gm/ Sodium Chloride) 100 mls @ 100 mls/hr IVPB Q8 [facility]; Protocol Last Admin: 05/18/18 08:21 Dose: 100 mls/hr Levothyroxine Sodium (Synthroid) 225 mcg PO DAILY@0630 [facility] Last Admin: 05/18/18 05:33 Dose: 225 mcg Midodrine (Proamatine) 5 mg PO TID [facility] Last Admin: 05/18/18 08:27 Dose: 5 mg Multivitamins/Minerals (Therapeutic-M Tab) 1 tab PO DAILY [facility] Last Admin: 05/17/18 08:47 Dose: 1 tab Mupirocin (Bactroban Ointment) 1 applic TOP BID [facility] Last Admin: 05/17/18 16:39 Dose: 1 applic Rivaroxaban (Xarelto) 15 mg PO DAILY [facility]; Protocol Last Admin: 05/14/18 08:35 Dose: 15 mg - Labs Labs: 05/17/18 08:55 05/17/18 08:55 PT 13.3 Seconds (9.8-13.1) H 05/18/18 05:21 INR 1.2 05/18/18 05:21 APTT 34.2 Seconds (25.6-37.1) 05/18/18 05:21 - Constitutional Appears: Well, Non-toxic, No Acute Distress - Head Exam Head Exam: ATRAUMATIC, NORMAL INSPECTION, NORMOCEPHALIC - Eye Exam Eye Exam: EOMI, PERRL - ENT Exam ENT Exam: Mucous Membranes Moist - Respiratory Exam Respiratory Exam: Clear to Ausculation Bilateral, NORMAL BREATHING PATTERN. absent: Rales, Rhonchi, Wheezes - Cardiovascular Exam Cardiovascular Exam: REGULAR RHYTHM, RRR, +S1, +S2, Murmur (LLSB holosystolic blowing murmur) - GI/Abdominal Exam GI & Abdominal Exam: Soft, Normal Bowel Sounds. absent: Tenderness - Extremities Exam Extremities Exam: Full ROM, Normal Capillary Refill, Normal Inspection - Neurological Exam Neurological Exam: Alert, Awake, CN II-XII Intact, Oriented x3 - Skin Additional comments: bilateral lower extremities warm and darkened Assessment and Plan (1) Bacteremia Assessment & Plan: Likely 2/2 to UTI vs. cellulitis Patient was positive for S. Aureus on blood culture on 05/05/18 Patient has been negative for blood culture for 5 days since 05/07/18 Status: Acute (2) Syncope Assessment & Plan: Echocardiogram from 05/10: LVEF of 55-60%, severely dilated LA, dilated RA, mild AR, moderate aortic stenosis with AV are of 1.25 cm2, mild MR, moderate TR, RVSP of 30 Carotid ultrasound: no significant stenosis noted EKG on admission: ventricular paced rhythm with HR of 69 Significant orthostatic vital signs with drop of systolic blood pressure of more than 20 from lying to standing. Echocardiogram shows significant finding of moderate aortic stenosis which could cause the syncopal episodes. Urine osmolarity was high, likely signifying patient is dehydrated As severe could be contributing to patient's episodes of syncope, cardiac catheterization done today. Patient's catheterization showed significant LAD stenosis and possible IVC stenosis. LAD was stented. Status: Acute (3) UTI (urinary tract infection) Assessment & Plan: UCx positive for Morg Morganii. Continue with antibiotics Status: Acute (4) Hypothyroidism Assessment & Plan: Continue with synthroid Status: Acute
[2018-05-18] MEDS: CYANOCOBALAMIN (VITAMIN B-12) 250 MCG TABLET PO SCH (15:29)
[2018-05-18] MEDS: Mupirocin 2% Oint 1GM UD TOP SCH ×2 (15:29→16:20)
[2018-05-18] MEDS: Multivitamin With Minerals Tab PO SCH (15:29)
--- NOTE | 2018-05-19 00:45 | CP.PCM.PN ---
Subjective - Date & Time of Evaluation Date of Evaluation: 05/18/18 Time of Evaluation: 10:30 - Subjective Subjective: Patient feels better Still with orthostasis but less Flomax and lasix were dc'd yesterday. For cardiac cath today Objective - Vital Signs/Intake and Output Vital Signs (last 24 hours): Temp Pulse Resp BP Pulse Ox 97.2 F L 61 18 111/73 94 L 05/19/18 00:39 05/19/18 00:39 05/19/18 00:39 05/19/18 00:39 05/19/18 00:39 - Medications Medications: Current Medications Albuterol/Ipratropium (Duoneb 3 Mg/0.5 Mg (3 Ml) Ud) 3 ml INH RTID [facility] Last Admin: 05/18/18 13:07 Dose: Not Given Cyanocobalamin (Vitamin B-12) 250 mcg PO DAILY [facility] Last Admin: 05/18/18 15:29 Dose: Not Given Digoxin (Digoxin) 0.125 mg PO TUTH [facility] Last Admin: 05/18/18 15:29 Dose: Not Given Digoxin (Digoxin) 0.125 mg PO FRI [facility] Last Admin: 05/14/18 08:33 Dose: 0.125 mg Digoxin (Digoxin) 0.125 mg PO SUN [facility] Last Admin: 05/16/18 09:21 Dose: 0.125 mg Digoxin (Lanoxin) 0.25 mg PO WED [facility] Last Admin: 05/12/18 10:46 Dose: 0.25 mg Digoxin (Lanoxin) 0.25 mg PO SAT [facility] Last Admin: 05/15/18 09:51 Dose: 0.25 mg Digoxin (Digoxin) 0.125 mg PO MON [facility] Last Admin: 05/17/18 08:46 Dose: 0.125 mg Ergocalciferol (Drisdol 50,000 Intl Units Cap) 1 cap PO MO [facility] Last Admin: 05/17/18 16:39 Dose: 1 cap Piperacillin Sod/Tazobactam (Sod 3.375 gm/ Sodium Chloride) 100 mls @ 100 mls/hr IVPB Q8 [facility]; Protocol Last Admin: 05/18/18 16:21 Dose: Not Given Levothyroxine Sodium (Synthroid) 225 mcg PO DAILY@0630 [facility] Last Admin: 05/18/18 05:33 Dose: 225 mcg Midodrine (Proamatine) 5 mg PO TID [facility] Last Admin: 05/18/18 16:20 Dose: Not Given Multivitamins/Minerals (Therapeutic-M Tab) 1 tab PO DAILY [facility] Last Admin: 05/18/18 15:29 Dose: Not Given Mupirocin (Bactroban Ointment) 1 applic TOP BID [facility] Last Admin: 05/18/18 16:20 Dose: Not Given Rivaroxaban (Xarelto) 15 mg PO DAILY [facility]; Protocol Last Admin: 05/14/18 08:35 Dose: 15 mg - Labs Labs: 05/17/18 08:55 05/17/18 08:55 PT 13.3 Seconds (9.8-13.1) H 05/18/18 05:21 INR 1.2 05/18/18 05:21 APTT 34.2 Seconds (25.6-37.1) 05/18/18 05:21 - Head Exam Head Exam: NORMAL INSPECTION - Eye Exam Eye Exam: Normal appearance - ENT Exam ENT Exam: Mucous Membranes Moist - Respiratory Exam Respiratory Exam: Clear to Ausculation Bilateral - Cardiovascular Exam Cardiovascular Exam: Irregular Rhythm - GI/Abdominal Exam GI & Abdominal Exam: Normal Bowel Sounds - Neurological Exam Neurological Exam: CN II-XII Intact Assessment and Plan (1) Bacteremia Status: Acute (2) Orthostatic hypotension Status: Acute (3) Syncope Status: Acute - Assessment and Plan (Free Text) Plan: Cont meds for cardiac cath cont all meds phys therapy
[2018-05-19] MEDS: Piperacillin/Tazobact 3.375 GM in Sodium Chloride 0.9% 100 ML IVPB SCH ×2 (00:57→08:18)
[2018-05-19] MEDS: Levothyroxine 75 MCG TAB PO SCH (06:39)
[2018-05-19] MEDS: Albuterol-Ipratrop 3 mg / 0.5 (3 ml) UD INH SCH ×3 (07:57→19:18)
[2018-05-19] MEDS: CYANOCOBALAMIN (VITAMIN B-12) 250 MCG TABLET PO SCH (08:11)
[2018-05-19] MEDS: Multivitamin With Minerals Tab PO SCH (08:11)
[2018-05-19] MEDS: Digoxin 250 mcg (0.25 mg) Tab PO SCH (08:11)
[2018-05-19] MEDS: Mupirocin 2% Oint 1GM UD TOP SCH ×2 (08:12→16:55)
[2018-05-19] MEDS: ceFAZolin 1 GM in Sodium Chloride 0.9% 100 ML IVPB SCH ×3 (13:49→22:21)
--- NOTE | 2018-05-19 14:35 | CP.PCM.PN ---
Subjective - Date & Time of Evaluation Date of Evaluation: 05/19/18 Time of Evaluation: 14:32 - Subjective Subjective: Colleen Jama, PGY-1, Cardiology Progress Note for Dr. Welch Patient was seen and examined at bedside. Patient had no acute overnight events. Patient denies any symptoms at this time. Patient's last syncopal episode was over one week ago. Objective - Vital Signs/Intake and Output Vital Signs (last 24 hours): Temp Pulse Resp BP Pulse Ox 98.4 F 60 18 111/71 95 05/19/18 12:02 05/19/18 12:02 05/19/18 12:02 05/19/18 12:02 05/19/18 12:02 - Medications Medications: Current Medications Albuterol/Ipratropium (Duoneb 3 Mg/0.5 Mg (3 Ml) Ud) 3 ml INH RTID [facility] Last Admin: 05/19/18 13:25 Dose: 3 ml Cyanocobalamin (Vitamin B-12) 250 mcg PO DAILY [facility] Last Admin: 05/19/18 08:11 Dose: 250 mcg Digoxin (Digoxin) 0.125 mg PO TUTH [facility] Last Admin: 05/18/18 15:29 Dose: Not Given Digoxin (Digoxin) 0.125 mg PO FRI [facility] Last Admin: 05/14/18 08:33 Dose: 0.125 mg Digoxin (Digoxin) 0.125 mg PO SUN [facility] Last Admin: 05/16/18 09:21 Dose: 0.125 mg Digoxin (Lanoxin) 0.25 mg PO WED [facility] Last Admin: 05/19/18 08:11 Dose: 0.25 mg Digoxin (Lanoxin) 0.25 mg PO SAT [facility] Last Admin: 05/15/18 09:51 Dose: 0.25 mg Digoxin (Digoxin) 0.125 mg PO MON [facility] Last Admin: 05/17/18 08:46 Dose: 0.125 mg Ergocalciferol (Drisdol 50,000 Intl Units Cap) 1 cap PO MO [facility] Last Admin: 05/17/18 16:39 Dose: 1 cap Cefazolin Sodium 1 gm/ Sodium (Chloride) 100 mls @ 100 mls/hr IVPB Q8 [facility]; Protocol Last Admin: 05/19/18 13:49 Dose: 100 mls/hr Levothyroxine Sodium (Synthroid) 225 mcg PO DAILY@0630 [facility] Last Admin: 05/19/18 06:39 Dose: 225 mcg Midodrine (Proamatine) 5 mg PO TID [facility] Last Admin: 05/19/18 12:00 Dose: 5 mg Multivitamins/Minerals (Therapeutic-M Tab) 1 tab PO DAILY [facility] Last Admin: 05/19/18 08:11 Dose: 1 tab Mupirocin (Bactroban Ointment) 1 applic TOP BID [facility] Last Admin: 05/19/18 08:12 Dose: 1 applic Rivaroxaban (Xarelto) 15 mg PO DAILY [facility]; Protocol Last Admin: 05/14/18 08:35 Dose: 15 mg - Labs Labs: 05/17/18 08:55 05/17/18 08:55 PT 13.3 Seconds (9.8-13.1) H 05/18/18 05:21 INR 1.2 05/18/18 05:21 APTT 34.2 Seconds (25.6-37.1) 05/18/18 05:21 - Constitutional Appears: Well, Non-toxic, No Acute Distress - Head Exam Head Exam: ATRAUMATIC, NORMAL INSPECTION, NORMOCEPHALIC - Eye Exam Eye Exam: EOMI, PERRL - ENT Exam ENT Exam: Mucous Membranes Moist - Respiratory Exam Respiratory Exam: Clear to Ausculation Bilateral, NORMAL BREATHING PATTERN. absent: Rales, Rhonchi, Wheezes - Cardiovascular Exam Cardiovascular Exam: REGULAR RHYTHM, RRR, +S1, +S2, Murmur (LLSB holosystolic blowing murmur) - GI/Abdominal Exam GI & Abdominal Exam: Soft, Normal Bowel Sounds. absent: Tenderness - Extremities Exam Extremities Exam: Full ROM, Normal Capillary Refill, Normal Inspection - Neurological Exam Neurological Exam: Alert, Awake, CN II-XII Intact, Oriented x3 - Skin Additional comments: bilateral lower extremities warm and darkened Assessment and Plan (1) Bacteremia Assessment & Plan: Likely 2/2 to UTI vs. cellulitis Patient was positive for S. Aureus on blood culture on 05/05/18 Patient has been negative for blood culture for 5 days since 05/07/18 Status: Acute (2) Syncope Assessment & Plan: Echocardiogram from 05/10: LVEF of 55-60%, severely dilated LA, dilated RA, mild AR, moderate aortic stenosis with AV are of 1.25 cm2, mild MR, moderate TR, RVSP of 30 Carotid ultrasound: no significant stenosis noted EKG on admission: ventricular paced rhythm with HR of 69 Significant orthostatic vital signs with drop of systolic blood pressure of more than 20 from lying to standing. Echocardiogram shows significant finding of moderate aortic stenosis which could cause the syncopal episodes. Urine osmolarity was high, likely signifying patient is dehydrated Cardiac catheterization: mild aortic stenosis, low cardiac output, revascul arization of high grade proximal left anterior descending lesion. Status: Acute (3) UTI (urinary tract infection) Assessment & Plan: UCx positive for Morg Morganii. Continue with antibiotics Status: Acute (4) Hypothyroidism Assessment & Plan: Continue with synthroid Status: Acute (5) CAD (coronary artery disease) Assessment & Plan: Started aspirin, plavix, atorvastatin, lisinopril, and coreg Status: Acute
--- NOTE | 2018-05-19 14:56 | CP.PCM.PN ---
Subjective - Date & Time of Evaluation Date of Evaluation: 05/19/18 Time of Evaluation: 09:00 - Subjective Subjective: events noted IV antibiotics in progress Objective - Vital Signs/Intake and Output Vital Signs (last 24 hours): Temp Pulse Resp BP Pulse Ox 98.4 F 60 18 111/71 95 05/19/18 12:02 05/19/18 12:02 05/19/18 12:02 05/19/18 12:02 05/19/18 12:02 - Medications Medications: Current Medications Albuterol/Ipratropium (Duoneb 3 Mg/0.5 Mg (3 Ml) Ud) 3 ml INH RTID [facility] Last Admin: 05/19/18 13:25 Dose: 3 ml Aspirin (Aspirin Chewable) 81 mg PO DAILY [facility] 234 [facility]S [facility] Atorvastatin Calcium (Lipitor) 20 mg PO DAILY [facility] 234 BEDS [facility] Carvedilol (Coreg) 3.125 mg PO Q12 [facility] 234 B[facility]S [facility] Clopidogrel Bisulfate (Plavix) 75 mg PO DAILY [facility] 234 B[facility]S [facility] Cyanocobalamin (Vitamin B-12) 250 mcg PO DAILY [facility] Last Admin: 05/19/18 08:11 Dose: 250 mcg Digoxin (Digoxin) 0.125 mg PO TUTH [facility]S [facility] Last Admin: 05/18/18 15:29 Dose: Not Given Digoxin (Digoxin) 0.125 mg PO FRI [facility]S [facility] Last Admin: 05/14/18 08:33 Dose: 0.125 mg Digoxin (Digoxin) 0.125 mg PO SUN [facility] 234 [facility]S [facility] Last Admin: 05/16/18 09:21 Dose: 0.125 mg Digoxin (Lanoxin) 0.25 mg PO WED [facility]S [facility] Last Admin: 05/19/18 08:11 Dose: 0.25 mg Digoxin (Lanoxin) 0.25 mg PO SAT [facility] 234 [facility]S [facility] Last Admin: 05/15/18 09:51 Dose: 0.25 mg Digoxin (Digoxin) 0.125 mg PO MON [facility] Last Admin: 05/17/18 08:46 Dose: 0.125 mg Ergocalciferol (Drisdol 50,000 Intl Units Cap) 1 cap PO MO [facility] Last Admin: 05/17/18 16:39 Dose: 1 cap Cefazolin Sodium 1 gm/ Sodium (Chloride) 100 mls @ 100 mls/hr IVPB Q8 [facility]; Protocol Last Admin: 05/19/18 13:49 Dose: 100 mls/hr Levothyroxine Sodium (Synthroid) 225 mcg PO DAILY@0630 [facility] Last Admin: 05/19/18 06:39 Dose: 225 mcg Lisinopril (Zestril) 2.5 mg PO DAILY [facility] Midodrine (Proamatine) 5 mg PO TID [facility] Last Admin: 05/19/18 12:00 Dose: 5 mg Multivitamins/Minerals (Therapeutic-M Tab) 1 tab PO DAILY [facility]S [facility] Last Admin: 05/19/18 08:11 Dose: 1 tab Mupirocin (Bactroban Ointment) 1 applic TOP BID [facility] Last Admin: 05/19/18 08:12 Dose: 1 applic Rivaroxaban (Xarelto) 15 mg PO DAILY [facility]S [facility]; Protocol Last Admin: 05/14/18 08:35 Dose: 15 mg - Labs Labs: 05/17/18 08:55 05/17/18 08:55 PT 13.3 Seconds (9.8-13.1) H 05/18/18 05:21 INR 1.2 05/18/18 05:21 APTT 34.2 Seconds (25.6-37.1) 05/18/18 05:21 - Constitutional Appears: Non-toxic, No Acute Distress, Chronically Ill - Head Exam Head Exam: ATRAUMATIC, NORMAL INSPECTION, NORMOCEPHALIC - Eye Exam Eye Exam: EOMI, Normal appearance, PERRL Pupil Exam: NORMAL ACCOMODATION, PERRL - ENT Exam ENT Exam: Mucous Membranes Moist, Normal Exam - Neck Exam Neck Exam: Full ROM, Normal Inspection. absent: Lymphadenopathy - Respiratory Exam Respiratory Exam: Clear to Ausculation Bilateral, NORMAL BREATHING PATTERN - Cardiovascular Exam Cardiovascular Exam: REGULAR RHYTHM, +S1, +S2. absent: Murmur - GI/Abdominal Exam GI & Abdominal Exam: Soft, Normal Bowel Sounds. absent: Tenderness - Rectal Exam Rectal Exam: Deferred - Extremities Exam Extremities Exam: Full ROM, Normal Capillary Refill, Normal Inspection. absent: Joint Swelling, Pedal Edema - Back Exam Back Exam: NORMAL INSPECTION - Neurological Exam Neurological Exam: Alert, Awake, CN II-XII Intact, Normal Gait, Oriented x3 - Psychiatric Exam Psychiatric exam: Normal Affect, Normal Mood - Skin Skin Exam: Dry, Intact, Normal Color, Warm Assessment and Plan (1) Syncope Status: Acute (2) UTI (urinary tract infection) Status: Acute (3) NICOLLE (acute kidney injury) Status: Acute (4) Abnormal gait Status: Acute (5) CKD (chronic kidney disease) stage 2, GFR 60-89 ml/min Status: Acute (6) Chest pain Status: Acute (7) Chronic a-fib Status: Acute (8) Debility Status: Acute (9) Dehydration Status: Acute - Assessment and Plan (Free Text) Assessment: cont iv antibiotics, wound care switch to ancef cont rx
--- NOTE | 2018-05-19 16:04 | RAD ---
Date of service: 05/19/2018 HISTORY: cough, leukocytosis COMPARISON: 05/16/2018 TECHNIQUE: Chest PA and lateral views FINDINGS: LUNGS: No active pulmonary disease. PLEURA: No significant pleural effusion identified. No pneumothorax apparent. CARDIOVASCULAR: No aortic atherosclerotic calcification present. Cardiomegaly. No evidence of acute, significant cardiovascular disease. Position/ configuration of pacemaker Satisfactory. OSSEOUS STRUCTURES: No significant abnormalities. VISUALIZED UPPER ABDOMEN: Normal. OTHER FINDINGS: None. IMPRESSION: No active disease. No significant interval change compared to the prior examination(s).
--- NOTE | 2018-05-19 20:46 | CP.PCM.PN ---
Subjective - Date & Time of Evaluation Date of Evaluation: 05/19/18 Time of Evaluation: 08:00 - Subjective Subjective: Pt seen and assessed at bedside. No new complaints reported. Pt had cardiac cath done yesterday, which revealed severely dilated LA, dilated RA, mild AR, moderate aortic stenosis; findings possibly the cause of syncopal episodes. Subjective Review of Systems: reviewed and no additional remarkable complaints except weakness. Objective Vital Signs Stable Appears: Non-toxic, No Acute Distress. Head Exam: NORMAL INSPECTION, normocephalic. Eye Exam: Normal appearance, PERRLA, EOMI. Respiratory Exam: NORMAL BREATHING PATTERN, breath sounds clear to auscultation. Cardiovascular Exam: +S1, +S2. RRR. GI & Abdominal Exam: Soft, non-tender, non-distended. Neurological Exam: Alert, Awake, Oriented with periods of forgetfulness. Psychiatric exam: Normal Affect, Normal Mood. Skin Exam: Normal Color, Warm, Dry. Assessment/Impression/Plan: 1.) Syncope/CAD/Bacteremia -Cardiac cath revealed severely dilated LA, dilated RA, mild AR, moderate aortic stenosis. -evaluate for syncope and orthostasis. -All consults appreciated input. -Bacteremia secondary to UTI; pt currently on Zosyn. Repeat blood cultures to be done. -Avoid Lasix. -Continue current tx. Objective - Vital Signs/Intake and Output Vital Signs (last 24 hours): Temp Pulse Resp BP Pulse Ox 98.1 F 60 20 103/63 95 05/19/18 20:12 05/19/18 20:12 05/19/18 20:12 05/19/18 20:12 05/19/18 20:12 Intake and Output: 05/19/18 05/20/18 18:59 06:59 Intake Total 920 Output Total 300 Balance 620 - Medications Medications: Current Medications Albuterol/Ipratropium (Duoneb 3 Mg/0.5 Mg (3 Ml) Ud) 3 ml INH RTID [facility] Last Admin: 05/19/18 19:18 Dose: 3 ml Aspirin (Aspirin Chewable) 81 mg PO DAILY [facility] Atorvastatin Calcium (Lipitor) 20 mg PO DAILY [facility] Carvedilol (Coreg) 3.125 mg PO Q12 [facility] Clopidogrel Bisulfate (Plavix) 75 mg PO DAILY [facility] Cyanocobalamin (Vitamin B-12) 250 mcg PO DAILY [facility] Last Admin: 05/19/18 08:11 Dose: 250 mcg Digoxin (Digoxin) 0.125 mg PO TUTH [facility] Last Admin: 05/18/18 15:29 Dose: Not Given Digoxin (Digoxin) 0.125 mg PO FRI [facility] Last Admin: 05/14/18 08:33 Dose: 0.125 mg Digoxin (Digoxin) 0.125 mg PO SUN [facility] Last Admin: 05/16/18 09:21 Dose: 0.125 mg Digoxin (Lanoxin) 0.25 mg PO WED [facility] Last Admin: 05/19/18 08:11 Dose: 0.25 mg Digoxin (Lanoxin) 0.25 mg PO SAT [facility] Last Admin: 05/15/18 09:51 Dose: 0.25 mg Digoxin (Digoxin) 0.125 mg PO MON [facility] Last Admin: 05/17/18 08:46 Dose: 0.125 mg Ergocalciferol (Drisdol 50,000 Intl Units Cap) 1 cap PO MO [facility] Last Admin: 05/17/18 16:39 Dose: 1 cap Cefazolin Sodium 1 gm/ Sodium (Chloride) 100 mls @ 100 mls/hr IVPB Q8@0600,1400,2200 [facility]; Protocol Levothyroxine Sodium (Synthroid) 225 mcg PO DAILY@0630 [facility] Last Admin: 05/19/18 06:39 Dose: 225 mcg Lisinopril (Zestril) 2.5 mg PO DAILY [facility] Midodrine (Proamatine) 5 mg PO TID [facility] Last Admin: 05/19/18 16:55 Dose: 5 mg Multivitamins/Minerals (Therapeutic-M Tab) 1 tab PO DAILY [facility] Last Admin: 05/19/18 08:11 Dose: 1 tab Mupirocin (Bactroban Ointment) 1 applic TOP BID [facility] Last Admin: 05/19/18 16:55 Dose: 1 applic Rivaroxaban (Xarelto) 15 mg PO DAILY [facility]; Protocol Last Admin: 05/14/18 08:35 Dose: 15 mg - Labs Labs: 05/17/18 08:55 05/17/18 08:55 PT 13.3 Seconds (9.8-13.1) H 05/18/18 05:21 INR 1.2 05/18/18 05:21 APTT 34.2 Seconds (25.6-37.1) 05/18/18 05:21 Assessment and Plan (1) UTI (urinary tract infection) Status: Acute (2) Syncope Status: Acute
[2018-05-20 00:20] VITALS: RESP 18
[2018-05-20] MEDS: ceFAZolin 1 GM in Sodium Chloride 0.9% 100 ML IVPB SCH ×2 (06:04→13:00)
[2018-05-20] MEDS: Levothyroxine 75 MCG TAB PO SCH (06:07)
[2018-05-20 06:55] LABS: BLOOD UREA NITROGEN 26 mg/dl (9-20); CALCIUM 9.6 mg/dL (8.4-10.2); GFR NON-AFRICAN AMERICAN > 60
[2018-05-20 07:20] LABS: BASO # 0.1 K/uL (0.0-0.2); BASO % 0.6 % (0.0-2.0); EOS # 0.2 K/uL (0.0-0.7); EOS % 2.1 % (0.0-4.0); HEMOGLOBIN 12.2 g/dL (12.0-18.0); LYMPH % 19.5 % (20.0-40.0); MEAN CORPUSCULAR HEMOGLOBIN 31.5 pg (27.0-31.0); MEAN CORPUSCULAR HGB CONC 33.5 g/dL (33.0-37.0); MEAN PLATELET VOLUME 8.4 fl (7.2-11.7); MONO # 0.9 K/uL (0.0-0.8); MONO % 8.7 % (0.0-10.0); NEUT # 7.1 K/uL (1.8-7.0); NEUT % 69.1 % (50.0-75.0); NRBC % 0.1 % (0.0-0.0); RBC 3.89 Mil/uL (4.40-5.90); RED CELL DISTRIBUTION WIDTH 14.6 % (11.5-14.5); WHITE BLOOD COUNT 10.3 K/uL (4.8-10.8)
[2018-05-20] MEDS: Albuterol-Ipratrop 3 mg / 0.5 (3 ml) UD INH SCH ×2 (07:52→13:27)
[2018-05-20] MEDS: Mupirocin 2% Oint 1GM UD TOP SCH (08:40)
[2018-05-20] MEDS: CYANOCOBALAMIN (VITAMIN B-12) 250 MCG TABLET PO SCH (08:40)
[2018-05-20] MEDS: Multivitamin With Minerals Tab PO SCH (08:42)
[2018-05-20 08:59] VITALS: PULSE 62
[2018-05-20] MEDS: Digoxin 125 mcg (0.125 mg) Tab PO SCH (08:59)
[2018-05-20 11:48] VITALS: BP 107/68; PULSE 86; TEMP 98.3; O2SAT 90
--- NOTE | 2018-05-20 14:18 | CP.PCM.PN ---
Subjective - Date & Time of Evaluation Date of Evaluation: 05/20/18 Time of Evaluation: 14:16 - Subjective Subjective: Colleen Jama, PGY-1, Cardiology Progress Note for Dr. Welch Patient was seen and examined at bedside. Patient had no acute overnight events. Patient denies any symptoms at this time. Patient's last syncopal episode was over one week ago. Objective - Vital Signs/Intake and Output Vital Signs (last 24 hours): Temp Pulse Resp BP Pulse Ox 98.3 F 86 18 107/68 90 L 05/20/18 11:48 05/20/18 11:48 05/20/18 11:48 05/20/18 11:48 05/20/18 11:48 - Medications Medications: Current Medications Albuterol/Ipratropium (Duoneb 3 Mg/0.5 Mg (3 Ml) Ud) 3 ml INH RTID [facility] Last Admin: 05/20/18 13:27 Dose: Not Given Aspirin (Aspirin Chewable) 81 mg PO DAILY [facility] Last Admin: 05/20/18 08:46 Dose: 81 mg Atorvastatin Calcium (Lipitor) 20 mg PO DAILY [facility] Last Admin: 05/20/18 08:43 Dose: 20 mg Carvedilol (Coreg) 3.125 mg PO Q12 [facility] Last Admin: 05/20/18 08:43 Dose: 3.125 mg Clopidogrel Bisulfate (Plavix) 75 mg PO DAILY [facility] Last Admin: 05/20/18 08:43 Dose: 75 mg Cyanocobalamin (Vitamin B-12) 250 mcg PO DAILY [facility] Last Admin: 05/20/18 08:40 Dose: 250 mcg Digoxin (Digoxin) 0.125 mg PO TUTH [facility] Last Admin: 05/20/18 08:59 Dose: 0.125 mg Digoxin (Digoxin) 0.125 mg PO FRI [facility] Last Admin: 05/14/18 08:33 Dose: 0.125 mg Digoxin (Digoxin) 0.125 mg PO SUN [facility] Last Admin: 05/16/18 09:21 Dose: 0.125 mg Digoxin (Lanoxin) 0.25 mg PO WED [facility] Last Admin: 05/19/18 08:11 Dose: 0.25 mg Digoxin (Lanoxin) 0.25 mg PO SAT [facility] Last Admin: 05/15/18 09:51 Dose: 0.25 mg Digoxin (Digoxin) 0.125 mg PO MON [facility] Last Admin: 05/17/18 08:46 Dose: 0.125 mg Ergocalciferol (Drisdol 50,000 Intl Units Cap) 1 cap PO MO [facility] Last Admin: 05/17/18 16:39 Dose: 1 cap Cefazolin Sodium 1 gm/ Sodium (Chloride) 100 mls @ 100 mls/hr IVPB Q8@0600,1400,2200 [facility]; Protocol Last Admin: 05/20/18 06:04 Dose: 100 mls/hr Levothyroxine Sodium (Synthroid) 225 mcg PO DAILY@0630 [facility] Last Admin: 05/20/18 06:07 Dose: 225 mcg Lisinopril (Zestril) 2.5 mg PO DAILY [facility] Last Admin: 05/20/18 08:40 Dose: 2.5 mg Midodrine (Proamatine) 5 mg PO TID [facility] Last Admin: 05/20/18 08:42 Dose: 5 mg Multivitamins/Minerals (Therapeutic-M Tab) 1 tab PO DAILY [facility] Last Admin: 05/20/18 08:42 Dose: 1 tab Mupirocin (Bactroban Ointment) 1 applic TOP BID [facility] Last Admin: 05/20/18 08:40 Dose: 1 applic Rivaroxaban (Xarelto) 15 mg PO DAILY [facility]; Protocol Last Admin: 05/20/18 08:44 Dose: 15 mg - Labs Labs: 05/20/18 05:25 05/20/18 05:25 PT 13.3 Seconds (9.8-13.1) H 05/18/18 05:21 INR 1.2 05/18/18 05:21 APTT 34.2 Seconds (25.6-37.1) 05/18/18 05:21 - Constitutional Appears: Well, Non-toxic, No Acute Distress - Head Exam Head Exam: ATRAUMATIC, NORMAL INSPECTION, NORMOCEPHALIC - Eye Exam Eye Exam: EOMI, PERRL - ENT Exam ENT Exam: Mucous Membranes Moist - Respiratory Exam Respiratory Exam: Clear to Ausculation Bilateral, NORMAL BREATHING PATTERN. absent: Rales, Rhonchi, Wheezes - Cardiovascular Exam Cardiovascular Exam: REGULAR RHYTHM, RRR, +S1, +S2, Murmur (LLSB holosystolic blowing murmur) - GI/Abdominal Exam GI & Abdominal Exam: Soft, Normal Bowel Sounds. absent: Tenderness - Extremities Exam Extremities Exam: Full ROM, Normal Capillary Refill, Normal Inspection - Neurological Exam Neurological Exam: Alert, Awake, CN II-XII Intact, Oriented x3 - Skin Additional comments: bilateral lower extremities warm and darkened Assessment and Plan (1) Bacteremia Assessment & Plan: Likely 2/2 to UTI vs. cellulitis Patient was positive for S. Aureus on blood culture on 05/05/18 Patient has been negative for blood culture for 5 days since 05/07/18 Status: Acute (2) Syncope Assessment & Plan: Echocardiogram from 05/10: LVEF of 55-60%, severely dilated LA, dilated RA, mild AR, moderate aortic stenosis with AV are of 1.25 cm2, mild MR, moderate TR, RVSP of 30 Carotid ultrasound: no significant stenosis noted EKG on admission: ventricular paced rhythm with HR of 69 Significant orthostatic vital signs with drop of systolic blood pressure of more than 20 from lying to standing. Echocardiogram shows significant finding of moderate aortic stenosis which could cause the syncopal episodes. Urine osmolarity was high, likely signifying patient is dehydrated Cardiac catheterization: mild aortic stenosis, low cardiac output, revascularization of high grade proximal left anterior descending lesion. Patient can be discharged from cardiac standpoint. Patient should follow up with Dr. Welch outpatient within 2 weeks. Status: Acute (3) UTI (urinary tract infection) Assessment & Plan: UCx positive for Morg Morganii. Continue with antibiotics Status: Acute (4) Hypothyroidism Assessment & Plan: Continue with synthroid Status: Acute (5) CAD (coronary artery disease) Assessment & Plan: Cardiac catheterization: mild aortic stenosis, low cardiac output, revascularization of high grade proximal left anterior descending lesion. Continue aspirin, plavix, atorvastatin, lisinopril, and coreg Status: Acute
--- NOTE | 2018-05-21 14:59 | CP.PCM.DIS ---
Provider - Provider Date of Admission: 05/06/18 00:02 Attending physician: Nabor Dueñas MD Primary care physician: Nabor Dueñas MD Consults: 05/06/18 10:22 Neurology Consult Routine Comment: Consulting Provider: Barb Bernardo Consulting Physician: Barb Bernardo Reason for Consult: SYNCOPE 05/06/18 17:50 Wound Care [Nursing Referral for Wound Care] Routine Comment: Physician Instructions: Reason For Exam: callus/bhupinder lower ext discoloration 05/07/18 10:41 Infectious Disease Consult Routine Comment: Consulting Provider: Justin Mckeon Consulting Physician: Justin Mckeon Reason for Consult: uti, +blood cultures 05/07/18 10:50 Cardiology Consult Routine Comment: Consulting Provider: Jeferson Welch Consulting Physician: Jeferson Welch Reason for Consult: afib, falls on xarelto 05/07/18 18:48 Podiatry Consult Routine Comment: Consulting Provider: Jason Vergara Consulting Physician: Jason Vergara Reason for Consult: elongated nails 05/14/18 18:12 Nephrology Consult Routine Comment: Consulting Provider: Immanuel Dejesus Consulting Physician: Immanuel Dejesus Reason for Consult: orthostatic hypotension 05/17/18 09:34 Pastoral Care Referral Routine Comment: Physician Instructions: Reason For Exam: Advance Directives Time Spent in preparation of Discharge (in minutes): 30 Diagnosis - Discharge Diagnosis (1) Bacteremia Status: Acute (2) Orthostatic hypotension Status: Acute (3) Aortic stenosis Status: Acute (4) CAD (coronary artery disease) Status: Acute Hospital Course - Lab Results Lab Results: Micro Results 05/19/18 09:30 Blood Blood Culture - Preliminary NO GROWTH AFTER 48 HOURS 05/19/18 09:20 Blood-Thru Central Line Blood Culture - Preliminary NO GROWTH AFTER 48 HOURS 05/19/18 09:30 Urine,Clean Catch Urine Culture - Final No Growth (<1,000 CFU/ML) 05/11/18 08:40 Blood Blood Culture - Final NO GROWTH AFTER 5 DAYS 05/11/18 08:40 Blood Gram Stain - Final TEST NOT PERFORMED 05/07/18 20:15 Blood-Venous Blood Culture - Final NO GROWTH AFTER 5 DAYS 05/07/18 20:15 Blood-Venous Gram Stain - Final TEST NOT PERFORMED 03/22/19 20:05 Blood-Venous Blood Culture - Final NO GROWTH AFTER 5 DAYS 05/07/18 20:05 Blood-Venous Gram Stain - Final TEST NOT PERFORMED 05/07/18 18:00 Foot - Right Gram Stain - Final 05/07/18 18:00 Foot - Right Wound Culture - Final Escherichia Coli Staphylococcus Aureus 05/05/18 23:58 Blood S.aureus & Coag-Neg Staph PNA FISH - Final 05/05/18 23:58 Blood Blood Culture - Final Staphylococcus Aureus 05/05/18 23:58 Blood Gram Stain - Final 05/06/18 00:25 Urine,Clean Catch Urine Culture - Final Morg Morganii Ss Morganii Most Recent Lab Values WBC 10.3 K/uL (4.8-10.8) 05/20/18 05:25 RBC 3.89 Mil/uL (4.40-5.90) L 05/20/18 05:25 Hgb 12.2 g/dL (12.0-18.0) 05/20/18 05:25 Hct 36.5 % (35.0-51.0) 05/20/18 05:25 MCV 94.0 fl (80.0-94.0) 05/20/18 05:25 MCH 31.5 pg (27.0-31.0) H 05/20/18 05:25 MCHC 33.5 g/dL (33.0-37.0) 05/20/18 05:25 RDW 14.6 % (11.5-14.5) H 05/20/18 05:25 Plt Count 284 K/uL (130-400) 05/20/18 05:25 MPV 8.4 fl (7.2-11.7) 05/20/18 05:25 Neut % (Auto) 69.1 % (50.0-75.0) 05/20/18 05:25 Lymph % (Auto) 19.5 % (20.0-40.0) L 05/20/18 05:25 Garrett % (Auto) 8.7 % (0.0-10.0) 05/20/18 05:25 Eos % (Auto) 2.1 % (0.0-4.0) 05/20/18 05:25 Baso % (Auto) 0.6 % (0.0-2.0) 05/20/18 05:25 Neut # (Auto) 7.1 K/uL (1.8-7.0) H 05/20/18 05:25 Lymph # (Auto) 2.0 K/uL (1.0-4.3) 05/20/18 05:25 Garrett # (Auto) 0.9 K/uL (0.0-0.8) H 05/20/18 05:25 Eos # (Auto) 0.2 K/uL (0.0-0.7) 05/20/18 05:25 Baso # (Auto) 0.1 K/uL (0.0-0.2) 05/20/18 05:25 Neutrophils % (Manual) 82 % (42-75) H 05/06/18 00:05 Band Neutrophils % 3 % (0-2) H 05/06/18 00:05 Lymphocytes % (Manual) 7 % (20-50) L 05/06/18 00:05 Monocytes % (Manual) 8 % (0-10) 05/06/18 00:05 Platelet Estimate Normal (NORMAL) 05/06/18 00:05 RBC Morphology Normal (NORMAL) 05/06/18 00:05 PT 13.3 Seconds (9.8-13.1) H 05/18/18 05:21 INR 1.2 05/18/18 05:21 APTT 34.2 Seconds (25.6-37.1) 05/18/18 05:21 pO2 17 mm/Hg (30-55) L 05/06/18 05:26 VBG pH 7.38 (7.32-7.43) 05/06/18 05:26 VBG pCO2 57 mmHg (40-60) 05/06/18 05:26 VBG HCO3 28.2 mmol/L 05/06/18 05:26 VBG Total CO2 35.4 mmol/L (22-28) H 05/06/18 05:26 VBG O2 Sat (Calc) 25.3 % (40-65) L 05/06/18 05:26 VBG Base Excess 6.8 mmol/L (0.0-2.0) H 05/06/18 05:26 VBG Potassium 5.0 mmol/L (3.6-5.2) 05/06/18 05:26 Sodium 136.0 mmol/L (132-148) 05/06/18 05:26 Chloride 103.0 mmol/L (98-107) 05/06/18 05:26 Glucose 96 mg/dL (75-110) 05/06/18 05:26 Lactate 1.8 mmol/L (0.7-2.1) 05/06/18 05:26 FiO2 21.0 % 05/06/18 05:26 Sodium 136 mmol/l (132-148) 05/20/18 05:25 Potassium 4.1 MMOL/L (3.6-5.0) 05/20/18 05:25 Chloride 102 mmol/L (98-107) 05/20/18 05:25 Carbon Dioxide 23 mmol/L (22-30) 05/20/18 05:25 Anion Gap 15 (10-20) 05/20/18 05:25 BUN 26 mg/dl (9-20) H 05/20/18 05:25 Creatinine 1.0 mg/dl (0.8-1.5) 05/20/18 05:25 Est GFR ( Amer) > 60 05/20/18 05:25 Est GFR (Non-Af Amer) > 60 05/20/18 05:25 POC Glucose (mg/dL) 110 mg/dL (65-110) 05/14/18 10:54 Random Glucose 77 mg/dL (75-110) 05/20/18 05:25 Serum Osmolality 297 mosm/kg (272-300) 05/12/18 12:45 Calcium 9.6 mg/dL (8.4-10.2) 05/20/18 05:25 Phosphorus 2.9 mg/dl (2.5-4.5) 05/07/18 04:35 Magnesium 1.4 MG/DL (1.6-2.3) L 05/07/18 04:35 Total Bilirubin 0.3 mg/dl (0.2-1.3) 05/10/18 04:20 AST 28 U/L (17-59) 05/10/18 04:20 ALT 26 U/L (21-72) 05/10/18 04:20 Alkaline Phosphatase 85 U/L (38-126) 05/10/18 04:20 Troponin I 0.0630 ng/mL (0.00-0.120) 05/06/18 00:05 Total Protein 6.3 G/DL (6.3-8.2) 05/10/18 04:20 Albumin 2.8 g/dL (3.5-5.0) L 05/10/18 04:20 Globulin 3.5 gm/dL (2.2-3.9) 05/10/18 04:20 Albumin/Globulin Ratio 0.8 (1.0-2.1) L 05/10/18 04:20 Procalcitonin 0.31 NG/ML (0.19-0.49) 05/07/18 04:35 TSH 3rd Generation 0.85 mIU/ML (0.46-4.68) 05/17/18 08:55 Cortisol AM Sample 10.6 ug/dL (4.46-22.7) 05/15/18 10:21 Venous Blood Potassium 5.0 mmol/L (3.6-5.2) 05/06/18 05:26 Urine Color Yellow (YELLOW) 05/06/18 00:30 Urine Clarity Cloudy (Clear) 05/06/18 00:30 Urine pH 6.0 (5.0-8.0) 05/06/18 00:30 Ur Specific [place] 1.014 (1.003-1.030) 05/06/18 00:30 Urine Protein 30 mg/dL (NEGATIVE) 05/06/18 00:30 Urine Glucose (UA) Neg mg/dL (NEGATIVE) 05/06/18 00:30 Urine Ketones Negative mg/dL (NEGATIVE) 05/06/18 00:30 Urine Blood Moderate (NEGATIVE) 05/06/18 00:30 Urine Nitrate Positive (NEGATIVE) H 05/06/18 00:30 Urine Bilirubin Negative (NEGATIVE) 05/06/18 00:30 Urine Urobilinogen 0.2-1.0 mg/dL (0.2-1.0) 05/06/18 00:30 Ur Leukocyte Esterase Large Michael/uL (Negative) 05/06/18 00:30 Urine RBC (Auto) 8 /hpf (0-3) H 05/06/18 00:30 Urine Microscopic WBC 279 /hpf (0-5) H 05/06/18 00:30 Ur Squamous Epith Cells 1 /hpf (0-5) 05/06/18 00:30 Urine Bacteria Mod (<OCC) H 05/06/18 00:30 Urine Osmolality 470 mosm/kg (300-1000) 05/12/18 14:00 Digoxin 0.9 ng/mL (0.8-2.0) 05/11/18 10:30 Urine Opiates Screen Negative (NEGATIVE) 05/06/18 00:30 Urine Methadone Screen Negative (NEGATIVE) 05/06/18 00:30 Ur Barbiturates Screen Negative (NEGATIVE) 05/06/18 00:30 Ur Phencyclidine Scrn Negative (NEGATIVE) 05/06/18 00:30 Ur Amphetamines Screen Negative (NEGATIVE) 05/06/18 00:30 U Benzodiazepines Scrn Negative (NEGATIVE) 05/06/18 00:30 U Oth Cocaine Metabols Negative (NEGATIVE) 05/06/18 00:30 U Cannabinoids Screen Negative (NEGATIVE) 05/06/18 00:30 Alcohol, Quantitative < 10 mg/dl (0-10) 05/06/18 00:05 - Hospital Course Hospital Course: 82 year old male with history of AFib with pacemaker, CAD, CHF, hypothyroidism who presented to the ED with syncopal episode. Patient did not recall episode. Patient's granddaughter stated in ED that patient has been falling with increased frequency recently. Cardiology and neurology was consulted. Patient was evaluated and treated. Patient was noted to have UTI and bacteremia. ID consulted, treated. Patient was then noted to have orthostatic hypotension. Cardiac cath was completed, mild aortic stenosis, low cardiac output, revascularization of high grade proximal left anterior descending lesion. Patient was discharged to [facility] for further IV abx. Patient discharged in stable condition. Discharge Exam - Head Exam Head Exam: ATRAUMATIC, NORMAL INSPECTION, NORMOCEPHALIC - Eye Exam Eye Exam: Normal appearance - Respiratory Exam Respiratory Exam: NORMAL BREATHING PATTERN - Cardiovascular Exam Cardiovascular Exam: +S1, +S2 - Neurological Exam Neurological exam: Alert, Oriented x3 - Psychiatric Exam Psychiatric exam: Normal Affect, Normal Mood - Skin Skin Exam: Normal Color, Warm Discharge Plan - Discharge Medications Prescriptions: ceFAZolin IV 1 gm in Dextrose [Ancef IV 1 gm Duplex] 1 gm IV Q8 #90 bag - Follow Up Plan Condition: STABLE Disposition: TRANSF TO [facility] Instructions: Urinary Tract Infection, Adult (DC), Syncope (Fainting) (DC), Minor Head Injury (DC) Referrals: Jeferson Welch MD [Staff Provider] - Nabor Dueñas MD [Primary Care Provider] -
--- NOTE | 2018-05-21 15:03 | PQF ---
PROVIDER RESPONSE TEXT: Confirmed and being treated REVIEWER QUERY TEXT: Conflicting Documentation Clarification A single mention or documentation of multiple diagnoses for the same clinical presentation appears in the record. Please clarify if after study pt has a diagnosis of sepsis or bacteremia Please also document if the condition is: -- Confirmed and current -- Confirmed, treated and resolved -- Ruled out -- Other, please specify The patient's Clinical Indicators include: Sepsis/Bacteremia Query created by: Erma Yates on 05/21/2018 2:44 PM Electronically signed by: Kirill Carrillo 05/21/2018 3:00 PM
--- NOTE | 2018-05-21 15:03 | PQF ---
PROVIDER RESPONSE TEXT: Provider was unable to determine a response for this query. REVIEWER QUERY TEXT: Rule Out Condition Clarification 05/[address] Mckeon documented" endocarditis cannot be ruled out." Please clarify stat us of this condition: -Patient has condition -Condition was ruled out Please provide corresponding diagnosis for patient's clinical picture and associated treatment -Patient had condition which is now resolved -Other (please specify) -Clinically unable to determine -Unknown The patient's Clinical Indicators include: xx Query created by: Erma Ytaes on 05/21/2018 2:49 PM Electronically signed by: Kirill Carrillo 05/21/2018 3:00 PM
--- NOTE | 2018-05-24 11:18 | PQF ---
Jason Davenport DPM PROVIDER RESPONSE TEXT: Excisional debridement of skin and subcutaneous tissue. REVIEWER QUERY TEXT: Debridement is documented in the Medical Record. Please specify the type and extent of debridement to include the method and instruments used. Type: Excisional Nonexcisional Depth of tissue removed: Such as: -- Skin -- Subcutaneous tissue -- Fascia -- Muscle -- Bone -- Other, please specify Query created by: Fern Yates 05/21/2018 02:42pm [facility]
== END 2018-05-20 15:50 | DRG 247 ==
LOC: H.ER 21:50 → H.ERHOLD 05-06 00:02 → H.TEL 05-06 10:09
PROVIDERS: ADMIT Family Medicine; ATTEND Family Medicine
PROC: 0JBQ0ZZ Excision of Right Foot Subcutaneous Tissue and Fascia, Open Approach (ICD-10-PCS; 2018-05-12)
PROC: 02HV33Z Insertion of Infusion Device into Superior Vena Cava, Percutaneous Approach (ICD-10-PCS; 2018-05-13)
PROC: 4A023N8 Measurement of Cardiac Sampling and Pressure, Bilateral, Percutaneous Approach (ICD-10-PCS; principal; 2018-05-18)
PROC: 027034Z Dilation of Coronary Artery, One Artery with Drug-eluting Intraluminal Device, Percutaneous Approach (ICD-10-PCS; 2018-05-18)
PROC: B211YZZ Fluoroscopy of Multiple Coronary Arteries using Other Contrast (ICD-10-PCS; 2018-05-18)
DX: I25.10 Atherosclerotic heart disease of native coronary artery without angina pectoris (principal); N39.0 Urinary tract infection, site not specified; R78.81 Bacteremia; I50.32 Chronic diastolic (congestive) heart failure; N17.9 Acute kidney failure, unspecified; I13.0 Hypertensive heart and chronic kidney disease with heart failure and stage 1 through stage 4 chronic kidney disease, or unspecified chronic kidney disease; I08.3 Combined rheumatic disorders of mitral, aortic and tricuspid valves; R13.10 Dysphagia, unspecified; E03.9 Hypothyroidism, unspecified; I48.2 Chronic atrial fibrillation; L89.892 Pressure ulcer of other site, stage 2; L89.891 Pressure ulcer of other site, stage 1; I95.1 Orthostatic hypotension; L60.3 Nail dystrophy; N18.2 Chronic kidney disease, stage 2 (mild); E86.0 Dehydration; R26.9 Unspecified abnormalities of gait and mobility; R53.81 Other malaise; Z87.891 Personal history of nicotine dependence; Z95.0 Presence of cardiac pacemaker; B96.89 Other specified bacterial agents as the cause of diseases classified elsewhere; R29.6 Repeated falls; I48.0 Paroxysmal atrial fibrillation; E78.00 Pure hypercholesterolemia, unspecified; Z79.01 Long term (current) use of anticoagulants; B95.61 Methicillin susceptible Staphylococcus aureus infection as the cause of diseases classified elsewhere

== ENCOUNTER 2018-06-09 23:05 | Inpatient (IN) | payer MEDICARE ==
[2018-06-09 23:05] VITALS: PULSE 60; BMI 30.8
--- NOTE | 2018-06-10 01:09 | ED PDOC ---
HPI: Male Pain Time Seen by Provider: 06/09/18 23:13 Chief Complaint (Nursing): Male Genitourinary Chief Complaint (Provider): Male Genitourinary History Per: Patient History/Exam Limitations: no limitations Onset/Duration Of Symptoms: Days (x 1) Current Symptoms Are (Timing): Still Present Quality Of Discomfort: "Pain" Associated Symptoms: Urinary Symptoms (hematuria) Additional Complaint(s): 82 year old male with a history of atrial fibrillation, pacemaker, CAD, CHF, and hyperthyroidism with recent admission for UTI and bacteremia presents to the ED via EMS for evaluation of hematuria and suprapubic pain for one day. Patient is a resident from [facility]. Denies fever and back pain. PMD: Dr. Zaid Gallo Past Medical History Reviewed: Historical Data, Nursing Documentation, Vital Signs Vital Signs: Last Vital Signs Temp 97.8 F 06/09/18 23:08 Pulse 88 06/09/18 23:08 Resp 18 06/09/18 23:08 BP Pulse Ox 97 06/09/18 23:08 - Medical History PMH: Atrial Fibrillation, CAD, Cardia Arrhythmia (bradycardia), CHF, HTN, Hypercholesterolemia, Hypothyroidism Denies: HIV, Chronic Kidney Disease - Surgical History Surgical History: Pacemaker, Tonsillectomy - Family History Family History: States: Unknown Family Hx - Immunization History Hx Tetanus Toxoid Vaccination: No Hx Influenza Vaccination: Yes Hx Pneumococcal Vaccination: Yes - Home Medications Home Medications: Ambulatory Orders Medication Instructions Recorded Ca/D3/Mag#11/Zinc/Community Resource Consultant/Todd/Bor 1 tab PO BID 12/29/17 [Caltrate 600+D Plus Tablet] Cyanocobalamin (Vitamin B-12) 250 mcg PO DAILY 12/29/17 [Vitamin B-12] Ergocalciferol (Vitamin D2) 50,000 unit PO MO 12/29/17 [Vitamin D2] Rivaroxaban [Xarelto] 15 mg PO DAILY 30 Days #30 tab 01/22/18 Albuterol/Ipratropium [Duoneb 3 3 ml INH RTID neb 05/20/18 mg/0.5 mg (3 ml) UD] Aspirin [Aspirin Chewable] 81 mg PO DAILY chew 05/20/18 Atorvastatin [Lipitor] 20 mg PO DAILY tab 05/20/18 Carvedilol [Coreg] 3.125 mg PO Q12 tab 05/20/18 Clopidogrel [Plavix] 75 mg PO DAILY tab 05/20/18 Digoxin 0.125 mg PO FRI tab 05/20/18 Digoxin 0.125 mg PO MON tab 05/20/18 Digoxin 0.125 mg PO SUN tab 05/20/18 Digoxin 0.125 mg PO TUTH tab 05/20/18 Digoxin [Lanoxin] 0.25 mg PO SAT tab 05/20/18 Levothyroxine [Synthroid] 225 mcg PO DAILY@0630 tab 05/20/18 Lisinopril [Zestril] 2.5 mg PO DAILY tab 05/20/18 Midodrine [Proamatine] 5 mg PO TID tab 05/20/18 ceFAZolin IV 1 gm in Dextrose 1 gm IV Q8 #90 bag 05/20/18 [Ancef IV 1 gm Duplex] - Allergies Allergies/Adverse Reactions: Allergies Allergy/AdvReac Type Severity Reaction Status Date / Time No Known Allergies Allergy Unknown RASH Verified 06/09/18 23:08 Review of Systems ROS Statement: Except As Marked, All Systems Reviewed And Found Negative Constitutional: Negative for: Fever Gastrointestinal: Positive for: Abdominal Pain Genitourinary Male: Positive for: Hematuria Musculoskeletal: Negative for: Back Pain Physical Exam - Reviewed Nursing Documentation Reviewed: Yes Vital Signs Reviewed: Yes - Physical Exam Appears: Positive for: No Acute Distress Head Exam: Positive for: ATRAUMATIC, NORMAL INSPECTION, NORMOCEPHALIC Skin: Positive for: Normal Color, Warm, Dry Eye Exam: Positive for: EOMI, Normal appearance, PERRL Neck: Positive for: Normal, Painless ROM, Supple Cardiovascular/Chest: Positive for: Regular Rate, Rhythm. Negative for: Murmur Respiratory: Positive for: Normal Breath Sounds. Negative for: Respiratory Distress Gastrointestinal/Abdominal: Positive for: Tenderness (suprapubic tenderness to palpation). Negative for: Mass, Guarding, Rebound Back: Positive for: Normal Inspection. Negative for: L CVA Tenderness, R CVA Tenderness Extremity: Positive for: Normal ROM (x 4). Negative for: Deformity Neurological/Psych: Positive for: Awake, Alert, Normal Tone, Oriented (x 3). Negative for: Motor/Sensory Deficits - Laboratory Results Result Diagrams: 06/10/18 01:00 06/10/18 05:00 - ECG O2 Sat by Pulse Oximetry: 97 (RA) Pulse Ox Interpretation: Normal Medical Decision Making Medical Decision Makin:08 A&P: possible UTI given history --VBG --BMP --CBC --Urine cx --Blood cx --UA 2:00 --Acute renal failure, possibly related to obstructive pathology, will insert sibley, repeat BMP after hydration 3:00 --Sibley placed without any difficulty (nurse reports no enlarged prostate), reddened cloudy urinary output the color and consistency of red wine put up, 600CC's --Likely acute renal failure was secondary to post-renal causes 6:00 --Renal failure is worse, however K is improved after medications --Dr. Dueñas aware of patient, will assume care --Page placed to Dr. Phoenix Dejesus to discuss case Scribe Attestation: Documented by Jennifer Johnson, acting as a scribe Su Crespo MD Provider Scribe Attestation: All medical record entries made by the Scribe were at my direction and person ally dictated by me. I have reviewed the chart and agree that the record accurately reflects my personal performance of the history, physical exam, medical decision making, and the department course for this patient. I have also personally directed, reviewed, and agree with the discharge instructions and disposition. Disposition - Clinical Impression Clinical Impression: Acute renal failure, UTI (urinary tract infection), Hyperkalemia - Patient ED Disposition Is Patient to be Admitted: No Counseled Patient/Family Regarding: Studies Performed, Diagnosis, Need For Followup - Disposition Disposition Time: 04:00 Condition: FAIR
[2018-06-10 01:16] LABS: VENOUS BLOOD GAS BASE EXCESS -1.3 mmol/L (0.0-2.0); VENOUS BLOOD GAS PCO2 40 mmHg (40-60); VENOUS BLOOD GAS PO2 22 mm/Hg (30-55); VENOUS BLOOD PH 7.38 (7.32-7.43)
[2018-06-10 01:26] LABS: BASO % 0.2 % (0.0-2.0); HEMOGLOBIN 11.9 g/dL (12.0-18.0); LYMPH # 0.4 K/uL (1.0-4.3); MEAN CELL VOLUME 93.4 fl (80.0-94.0); MEAN CORPUSCULAR HEMOGLOBIN 30.5 pg (27.0-31.0); MEAN CORPUSCULAR HGB CONC 32.6 g/dL (33.0-37.0); MEAN PLATELET VOLUME 9.2 fl (7.2-11.7); MONO # 0.6 K/uL (0.0-0.8); MONO % 3.6 % (0.0-10.0); NEUT % 94.2 % (50.0-75.0); NRBC % 0.1 % (0.0-0.0); PLATELET COUNT 261 K/uL (130-400); RBC 3.92 Mil/uL (4.40-5.90); RED CELL DISTRIBUTION WIDTH 14.8 % (11.5-14.5)
[2018-06-10 02:16] LABS: PLATELET ESTIMATE NORMAL (NORMAL)
[2018-06-10 02:17] LABS: BANDS 2 % (0-2); BASOPHIL 1 % (0-2); EOSINOPHIL 1 % (0-7); LYMPHOCYTE 3 % (20-50); MONOCYTE 1 % (0-10); NEUTROPHIL 92 % (42-75); TOTAL CELLS COUNTED 100
[2018-06-10] MEDS ORDERED: Dextrose 50% SYRINGE Inj (50 ml) IVP ONE (02:22)
[2018-06-10] MEDS ORDERED: Insulin Regular 100 units/ml IV STA (02:22)
[2018-06-10] MEDS ORDERED: Dextrose 50% SYRINGE Inj (50 ml) ONE (02:54)
[2018-06-10] MEDS ORDERED: Insulin Regular 100 units/ml ONE (02:54)
[2018-06-10] MEDS ORDERED: Sodium Chloride 0.9% 1,000 ML IV STA (03:00)
[2018-06-10 03:09] LABS: URINE BILIRUBIN NEGATIVE (NEGATIVE); URINE BLOOD LARGE (NEGATIVE); URINE CLARITY CLOUDY (Clear); URINE COLOR YELLOW (YELLOW); URINE GLUCOSE (UA) NEG (NEGATIVE); URINE LEUKOCYTE ESTERASE LARGE Leu/uL (Negative); URINE PROTEIN 30 mg/dL (NEGATIVE); URINE UROBILINOGEN 0.2-1.0 mg/dL (0.2-1.0)
[2018-06-10] MEDS ORDERED: levoFLOXacin 750 mg in D5W 750 MG/150 ML BAG IVPB STA (03:22)
[2018-06-10] MEDS ORDERED: levoFLOXacin 750 mg in D5W 750 MG/150 ML BAG IVPB ONE (03:44)
[2018-06-10 05:45] LABS: ALB/GLOB RATIO 0.9 (1.0-2.1); ALBUMIN 2.9 g/dL (3.5-5.0); CALCIUM 9.8 mg/dL (8.4-10.2)
--- NOTE | 2018-06-10 08:16 | CARD ---
APPROVED REPORT Date of service: 06/10/2018 EKG Measurement Heart [id number] <Conclusion> Ventricular-paced rhythm Abnormal ECG
--- NOTE | 2018-06-10 09:25 | CP.PCM.CON ---
History of Present Illness - History of Present Illness History of Present Illness: This patient is 82 years of age male presented to the emergency room from nursing go home with lower abdominal pain and hematuria in the put Dong catheter and the patient drain approximately over 1800 cc of urine so far which has been bloody urine. Patient also found to have high BUN creatinine with hyperkalemia he was treated in the emergency room apparently with Kayexalate and. Patient was here in first week of May and serum creatinine was near normal at that time and the patient has history of recurrent urine infection and his medication at home noted including antibiotics I believe ceftriaxone? The rest of medication were noted as well And has poor appetite he has not been eating His past medical history Significant for recurrent urine tract infection history of hematuria Diabetes mellitus hypertension I believe pacemaker and history of coronary artery disease Social history not contributory as noted in the medical record Review of Systems - Constitutional Constitutional: Anorexia. absent: Chills, Night Sweats - EENT Eyes: absent: Exophthalmos - Cardiovascular Cardiovascular: Dyspnea. absent: Chest Pain, Edema, Leg Edema - Respiratory Respiratory: absent: Cough, Dyspnea - Gastrointestinal Gastrointestinal: Abdominal Pain, Nausea. absent: Coffee Ground Emesis, Melena - Genitourinary Genitourinary: Change in Urinary Stream, Dysuria, Nocturia, Freq UTI - Musculoskeletal Musculoskeletal: Muscle Weakness. absent: Arthralgias, Numbness - Neurological Neurological: Weakness. absent: Confusion, Disequilibrium - Psychiatric Psychiatric: Change in Appetite - Endocrine Endocrine: Fatigue - Hematologic/Lymphatic Hematologic: absent: Easy Bleeding Past Patient History - Past Medical History & Family History Past Medical History?: Yes - Past Social History Smoking Status: Never Smoked - CARDIAC Hx Atrial Fibrillation: Yes Hx Cardia Arrhythmia: Yes (bradycardia) Hx Congestive Heart Failure: Yes Hx Hypercholesterolemia: Yes Hx Hypertension: Yes Hx Pacemaker: Yes - PULMONARY Hx Respiratory Disorders: No - NEUROLOGICAL Hx Neurological Disorder: No - HEENT Hx HEENT Problems: No - RENAL Hx Chronic Kidney Disease: No - ENDOCRINE/METABOLIC Hx Hypothyroidism: Yes - HEMATOLOGICAL/ONCOLOGICAL Hx AIDS: No Hx Human Immunodeficiency Virus (HIV): No - INTEGUMENTARY Hx Dermatological Problems: No Hx Cellulitis: Yes - MUSCULOSKELETAL/RHEUMATOLOGICAL Hx Musculoskeletal Disorders: Yes Hx Falls: Yes - GASTROINTESTINAL Hx Gastrointestinal Disorders: No - GENITOURINARY/GYNECOLOGICAL Hx Hematuria: Yes Hx Urinary Tract Infection: Yes - PSYCHIATRIC Hx Psychophysiologic Disorder: No Hx Emotional Abuse: No Hx Physical Abuse: No Hx Substance Use: No - SURGICAL HISTORY Hx Tonsillectomy: Yes - ANESTHESIA Hx Anesthesia: Yes Hx Anesthesia Reactions: No Hx Malignant Hyperthermia: No Meds Allergies/Adverse Reactions: Allergies Allergy/AdvReac Type Severity Reaction Status Date / Time No Known Allergies Allergy Unknown RASH Verified 06/09/18 23:08 - Medications Medications: Current Medications Sodium Chloride (Sodium Chloride 0.9%) 1,000 mls @ 150 mls/hr IV .[id number] STA Stop: 06/10/18 09:39 Last Admin: 06/10/18 03:35 Dose: 150 mls/hr Physical Exam - Constitutional Appears: No Acute Distress - Eye Exam Eye Exam: absent: Conjunctival injection - ENT Exam ENT Exam: Mucous Membranes Dry - Neck Exam Neck exam: Negative for: Lymphadenopathy - Respiratory Exam Respiratory Exam: NORMAL BREATHING PATTERN. absent: Chest Wall Tenderness - Cardiovascular Exam Cardiovascular Exam: absent: Gallop, JVD, Rubs - GI/Abdominal Exam GI & Abdominal Exam: absent: Guarding - Extremities Exam Extremities exam: Negative for: calf tenderness, pedal edema - Back Exam Back exam: absent: CVA tenderness (L), CVA tenderness (R) - Neurological Exam Neurological exam: Alert - Psychiatric Exam Psychiatric exam: Normal Affect Results - Vital Signs Recent Vital Signs: Last Vital Signs Temp 98.9 F 06/10/18 06:45 Pulse 66 06/10/18 06:45 Resp 15 06/10/18 06:56 BP 130/90 06/10/18 06:45 Pulse Ox 100 06/10/18 06:56 - Labs Result Diagrams: 06/10/18 01:00 06/10/18 05:00 Labs: Laboratory Results - last 24 hr 06/10/18 06/10/18 06/10/18 01:00 01:00 01:12 WBC 18.0 H D RBC 3.92 L Hgb 11.9 L Hct 36.6 MCV 93.4 MCH 30.5 MCHC 32.6 L RDW 14.8 H Plt Count 261 MPV 9.2 Neut % (Auto) 94.2 H Lymph % (Auto) 2.0 L [place] % (Auto) 3.6 Eos % (Auto) 0.0 Baso % (Auto) 0.2 Neut # (Auto) 17.0 H Lymph # (Auto) 0.4 L [place] # (Auto) 0.6 Eos # (Auto) 0.0 Baso # (Auto) 0.0 Neutrophils % (Manual) 92 H Band Neutrophils % 2 Lymphocytes % (Manual) 3 L Monocytes % (Manual) 1 Eosinophils % (Manual) 1 Basophils % (Manual) 1 Platelet Estimate Normal RBC Morphology Normal pO2 22 L VBG pH 7.38 VBG pCO2 40 VBG HCO3 22.2 VBG Total CO2 24.9 VBG O2 Sat (Calc) 31.1 L VBG Base Excess -1.3 L Glucose 88 Lactate 2.4 H FiO2 21.0 Crit Value Called To Zak syed md Crit Value Called By 333 Crit Value Read Back Y Blood Gas Notified Time 115 Sodium 132 169.0 H* Potassium 5.8 H Chloride 97 L 114.0 H Carbon Dioxide 20 L Anion Gap 21 H BUN 119 H* D Creatinine 7.9 H* D Est GFR ( Amer) 8 Est GFR (Non-Af Amer) 7 POC Glucose (mg/dL) Random Glucose 94 Calcium 10.0 Total Bilirubin AST ALT Alkaline Phosphatase Total Protein Albumin Globulin Albumin/Globulin Ratio Urine Color Urine Clarity Urine pH Ur Specific [place] Urine Protein Urine Glucose (UA) Urine Ketones Urine Blood Urine Nitrate Urine Bilirubin Urine Urobilinogen Ur Leukocyte Esterase Urine RBC (Auto) Urine Microscopic WBC 06/10/18 06/10/18 06/10/18 02:54 05:00 05:01 WBC RBC Hgb Hct MCV MCH MCHC RDW Plt Count MPV Neut % (Auto) Lymph % (Auto) [place] % (Auto) Eos % (Auto) Baso % (Auto) Neut # (Auto) Lymph # (Auto) [place] # (Auto) Eos # (Auto) Baso # (Auto) Neutrophils % (Manual) Band Neutrophils % Lymphocytes % (Manual) Monocytes % (Manual) Eosinophils % (Manual) Basophils % (Manual) Platelet Estimate RBC Morphology pO2 VBG pH VBG pCO2 VBG HCO3 VBG Total CO2 VBG O2 Sat (Calc) VBG Base Excess Glucose Lactate FiO2 Crit Value Called To Crit Value Called By Crit Value Read Back Blood Gas Notified Time Sodium 133 Potassium 5.1 H Chloride 98 Carbon Dioxide 21 L Anion Gap 19 BUN 115 H* Creatinine 8.4 H* Est GFR ( Amer) 7 Est GFR (Non-Af Amer) 6 POC Glucose (mg/dL) 92 Random Glucose 91 Calcium 9.8 Total Bilirubin 0.5 AST 21 ALT 14 L D Alkaline Phosphatase 69 Total Protein 6.0 L Albumin 2.9 L Globulin 3.2 Albumin/Globulin Ratio 0.9 L Urine Color Yellow Urine Clarity Cloudy Urine pH 6.0 Ur Specific [place] 1.005 Urine Protein 30 Urine Glucose (UA) Neg Urine Ketones Negative Urine Blood Large Urine Nitrate Negative Urine Bilirubin Negative Urine Urobilinogen 0.2-1.0 Ur Leukocyte Esterase Large Urine RBC (Auto) 7496 H Urine Microscopic WBC 930 H Assessment & Plan (1) Hyperkalemia Status: Acute (2) UTI (urinary tract infection) Status: Acute (3) NICOLLE (acute kidney injury) Assessment and Plan: The fact that the patient made over 1800 cc of urine after putting Dong catheter suggestive of obstructive uropathy causing acute kidney injury/acute renal failure.. Although I cannot rule out other element is causing acute kidney injury. Hyperkalemia Urinary tract infection Gross hematuria Recommendation Since the patient making good urine output 1800 cc after inserting Dong catheter an additional 300 cc plus this morning we will hold the dialysis and monitor output and we will do stat ultrasound of the kidney Urine culture/empiric antibiotics after doing blood and urine cultures such as Zosyn with adjusted GFR IV fluid Serum phosphorus and PTH Status: Acute (4) CAD (coronary artery disease) Status: Acute
--- NOTE | 2018-06-10 09:44 | RAD ---
Date of service: 06/10/2018 HISTORY: elevated wbc count COMPARISON: 05/19/2018 TECHNIQUE: 1 view obtained. FINDINGS: LUNGS: No active pulmonary disease. PLEURA: No significant pleural effusion identified, no pneumothorax apparent. CARDIOVASCULAR: There is atherosclerotic calcification of the thoracic aorta. Mild cardiomegaly. Permanent pacemaker. No congestive change. OSSEOUS STRUCTURES: No significant abnormalities. VISUALIZED UPPER ABDOMEN: Normal. OTHER FINDINGS: None. IMPRESSION: Mild cardiomegaly. Permanent pacemaker. No infiltrate.
[2018-06-10 11:42] LABS: BASO % 0.1 % (0.0-2.0); EOS % 0.1 % (0.0-4.0); HEMOGLOBIN 9.4 g/dL (12.0-18.0); LYMPH # 0.7 K/uL (1.0-4.3); MEAN CELL VOLUME 93.5 fl (80.0-94.0); MEAN CORPUSCULAR HEMOGLOBIN 30.9 pg (27.0-31.0); MEAN PLATELET VOLUME 8.8 fl (7.2-11.7); MONO # 1.2 K/uL (0.0-0.8); MONO % 4.9 % (0.0-10.0); NEUT # 22.2 K/uL (1.8-7.0); NEUT % 91.9 % (50.0-75.0); PLATELET COUNT 213 K/uL (130-400); RBC 3.06 Mil/uL (4.40-5.90); RED CELL DISTRIBUTION WIDTH 14.9 % (11.5-14.5); WHITE BLOOD COUNT 24.1 K/uL (4.8-10.8)
--- NOTE | 2018-06-10 11:44 | CP.CCUPN ---
<Nikole Washington - Last Filed: 06/10/18 13:21> CCU Subjective - Physician Review Subjective (Free Text): 82 YO Male with PMHx of AFib (w/ pacemaker, CAD, CHF, hypothyroidism) is admitted for acute renal failure and hematuria Patient seen and examined by beside this AM. Hypotensive on monitor, saturating 97-100% with 2L NC HR stable. Dong noted, draining dark blood. Patient denies dyspnea, chest pain, abdominal pain, dysuria previously. Awake and alert. Answering questions, seems confused at times Initially a tele patient but transferred this AM to ICU for closer monitoring 1. Acute renal failure -sig elevated BUN/Cr from previously -dehydration vs obstruction (prerenal vs postrenal) unknown about any renal disease) -urine electrolytes ordered -Nephrology on board -Renal u/s -IV fluids and keep urine output -infection less likely, no leukocytosis, UA, BCx pending, afebrile. follow up procalcitonin 2. Lactic acidosis -likely 2/2 to dehydration -c/w IV fluids -follow up procalcitonin to r/o infection source 3. Gross hematuria -likely 2.2 to acute renal injury -Nephrology on consult -consider urology -renal scan pending -IV fluids -hold anticoagulation for now given acute bleeding -follow up coagulation and cbc -replace as needed 4. HTN -currently hypotensive likely 22/ yo dehydration -will replace fluid as tolerated -hold all anti HTN meds for now 5. A fib -chronic, controlled -Pacemaker noted on monitor -Cardiology consulted -will restarted meds after swallow eval -hold anticoagulation for now given acute bleeding 6. CHF -chronic, controlled -echo 04/2018 EF 55-60%, moderate TR and aortic stenosis -cardiac cath 05/18/18 with revascularization of LAD -follow up cardiac enzymes -Cardiology consulted -restart home meds 7. Hypothyroidism -chronic -will restart home meds 8. Diet -will follow up swallow eval 9. DVT prolx -acute bleeding, will hold for now CCU Objective - Vital Signs / Intake & Output Vital Signs (Last 4 hours): Vital Signs Temp Pulse Resp BP Pulse Ox 06/10/18 09:00 97.9 F 65 15 79/41 L 100 Intake and Output (Last 8hrs): Intake & Output 04/24/19 04/25/19 04/25/19 22:59 06:59 14:59 Intake Total 960 Output Total 1700 Balance -740 Weight 81.647 kg Intake: IV 960 Oral 0 Tube Feeding 0 Blood Product 0 Albumin 0 Other 0 Output: Urine 1700 Stool 0 Emesis 0 Other 0 - Physical Exam Head: Positive for: Other (on NC, 2L ) Extroacular Muscles: Positive for: EOMI Mouth: Positive for: Dry Respiratory/Chest: Positive for: Good Air Exchange. Negative for: Respiratory Distress, Wheezes, Rales Cardiovascular: Positive for: Normal S1, S2, Irregular Rhythm. Negative for: Murmurs Abdomen: Positive for: Normal Bowel Sounds. Negative for: Tenderness, Distention Genitourinary Male: Positive for: Other (Dong noted, no lesions on the surface, bag draining dark urine ) Upper Extremity: Positive for: Normal Inspection. Negative for: Edema Lower Extremity: Positive for: Normal Inspection. Negative for: Edema Skin: Positive for: Warm, Dry, Normal Color Psychiatric: Positive for: Alert - Medications Active Medications: Active Medications Generic Name Dose Route Start Last Admin Trade Name Freq PRN Reason Stop Dose Admin Albuterol/Ipratropium 3 ml 06/10/18 14:00 Duoneb 3 Mg/0.5 Mg (3 Ml) Ud INH RTID [facility] Sodium Chloride 1,000 mls @ 999 mls/hr 06/10/18 11:30 Sodium Chloride 0.9% IV 06/10/18 13:30 .Q1H1M [facility] - Patient Studies Lab Studies: Lab Studies 06/10/18 06/10/18 06/10/18 Range/Units 05:01 05:00 02:54 WBC (4.8-10.8) K/uL RBC (4.40-5.90) Mil/uL Hgb (12.0-18.0) g/dL Hct (35.0-51.0) % MCV (80.0-94.0) fl MCH (27.0-31.0) pg MCHC (33.0-37.0) g/dL RDW (11.5-14.5) % Plt Count (130-400) K/uL MPV (7.2-11.7) fl Neut % (Auto) (50.0-75.0) % Lymph % (Auto) (20.0-40.0) % [place] % (Auto) (0.0-10.0) % Eos % (Auto) (0.0-4.0) % Baso % (Auto) (0.0-2.0) % Neut # (Auto) (1.8-7.0) K/uL Lymph # (Auto) (1.0-4.3) K/uL [place] # (Auto) (0.0-0.8) K/uL Eos # (Auto) (0.0-0.7) K/uL Baso # (Auto) (0.0-0.2) K/uL Neutrophils % (Manual) (42-75) % Band Neutrophils % (0-2) % Lymphocytes % (Manual) (20-50) % Monocytes % (Manual) (0-10) % Eosinophils % (Manual) (0-7) % Basophils % (Manual) (0-2) % Platelet Estimate (NORMAL) RBC Morphology (NORMAL) pO2 (30-55) mm/Hg VBG pH (7.32-7.43) VBG pCO2 (40-60) mmHg VBG HCO3 mmol/L VBG Total CO2 (22-28) mmol/L VBG O2 Sat (Calc) (40-65) % VBG Base Excess (0.0-2.0) mmol/L Glucose (75-110) mg/dL Lactate (0.7-2.1) mmol/L FiO2 % Crit Value Called To Crit Value Called By Crit Value Read Back Blood Gas Notified Time Sodium 133 (132-148) mmol/l Potassium 5.1 H (3.6-5.0) MMOL/L Chloride 98 (98-107) mmol/L Carbon Dioxide 21 L (22-30) mmol/L Anion Gap 19 (10-20) BUN 115 H* (9-20) mg/dl Creatinine 8.4 H* (0.8-1.5) mg/dl Est GFR ( Amer) 7 Est GFR (Non-Af Amer) 6 POC Glucose (mg/dL) 92 (65-110) mg/dL Random Glucose 91 (75-110) mg/dL Calcium 9.8 (8.4-10.2) mg/dL Total Bilirubin 0.5 (0.2-1.3) mg/dl AST 21 (17-59) U/L ALT 14 L D (21-72) U/L Alkaline Phosphatase 69 (38-126) U/L Total Protein 6.0 L (6.3-8.2) G/DL Albumin 2.9 L (3.5-5.0) g/dL Globulin 3.2 (2.2-3.9) gm/dL Albumin/Globulin Ratio 0.9 L (1.0-2.1) Urine Color Yellow (YELLOW) Urine Clarity Cloudy (Clear) Urine pH 6.0 (5.0-8.0) Ur Specific [place] 1.005 (1.003-1.030) Urine Protein 30 (NEGATIVE) mg/dL Urine Glucose (UA) Neg (NEGATIVE) mg/dL Urine Ketones Negative (NEGATIVE) mg/dL Urine Blood Large (NEGATIVE) Urine Nitrate Negative (NEGATIVE) Urine Bilirubin Negative (NEGATIVE) Urine Urobilinogen 0.2-1.0 (0.2-1.0) mg/dL Ur Leukocyte Esterase Large (Negative) Michael/uL Urine RBC (Auto) 7496 H (0-3) /hpf Urine Microscopic WBC 930 H (0-5) /hpf 06/10/18 06/10/18 06/10/18 Range/Units 01:12 01:00 01:00 WBC 18.0 H D (4.8-10.8) K/uL RBC 3.92 L (4.40-5.90) Mil/uL Hgb 11.9 L (12.0-18.0) g/dL Hct 36.6 (35.0-51.0) % MCV 93.4 (80.0-94.0) fl MCH 30.5 (27.0-31.0) pg MCHC 32.6 L (33.0-37.0) g/dL RDW 14.8 H (11.5-14.5) % Plt Count 261 (130-400) K/uL MPV 9.2 (7.2-11.7) fl Neut % (Auto) 94.2 H (50.0-75.0) % Lymph % (Auto) 2.0 L (20.0-40.0) % [place] % (Auto) 3.6 (0.0-10.0) % Eos % (Auto) 0.0 (0.0-4.0) % Baso % (Auto) 0.2 (0.0-2.0) % Neut # (Auto) 17.0 H (1.8-7.0) K/uL Lymph # (Auto) 0.4 L (1.0-4.3) K/uL [place] # (Auto) 0.6 (0.0-0.8) K/uL Eos # (Auto) 0.0 (0.0-0.7) K/uL Baso # (Auto) 0.0 (0.0-0.2) K/uL Neutrophils % (Manual) 92 H (42-75) % Band Neutrophils % 2 (0-2) % Lymphocytes % (Manual) 3 L (20-50) % Monocytes % (Manual) 1 (0-10) % Eosinophils % (Manual) 1 (0-7) % Basophils % (Manual) 1 (0-2) % Platelet Estimate Normal (NORMAL) RBC Morphology Normal (NORMAL) pO2 22 L (30-55) mm/Hg VBG pH 7.38 (7.32-7.43) VBG pCO2 40 (40-60) mmHg VBG HCO3 22.2 mmol/L VBG Total CO2 24.9 (22-28) mmol/L VBG O2 Sat (Calc) 31.1 L (40-65) % VBG Base Excess -1.3 L (0.0-2.0) mmol/L Glucose 88 (75-110) mg/dL Lactate 2.4 H (0.7-2.1) mmol/L FiO2 21.0 % Crit Value Called To Zak syed md Crit Value Called By 333 Crit Value Read Back Y Blood Gas Notified Time 115 Sodium 169.0 H* 132 (132-148) mmol/l Potassium 5.8 H (3.6-5.0) MMOL/L Chloride 114.0 H 97 L (98-107) mmol/L Carbon Dioxide 20 L (22-30) mmol/L Anion Gap 21 H (10-20) BUN 119 H* D (9-20) mg/dl Creatinine 7.9 H* D (0.8-1.5) mg/dl Est GFR ( Amer) 8 Est GFR (Non-Af Amer) 7 POC Glucose (mg/dL) (65-110) mg/dL Random Glucose 94 (75-110) mg/dL Calcium 10.0 (8.4-10.2) mg/dL Total Bilirubin (0.2-1.3) mg/dl AST (17-59) U/L ALT (21-72) U/L Alkaline Phosphatase (38-126) U/L Total Protein (6.3-8.2) G/DL Albumin (3.5-5.0) g/dL Globulin (2.2-3.9) gm/dL Albumin/Globulin Ratio (1.0-2.1) Urine Color (YELLOW) Urine Clarity (Clear) Urine pH (5.0-8.0) Ur Specific [place] (1.003-1.030) Urine Protein (NEGATIVE) mg/dL Urine Glucose (UA) (NEGATIVE) mg/dL Urine Ketones (NEGATIVE) mg/dL Urine Blood (NEGATIVE) Urine Nitrate (NEGATIVE) Urine Bilirubin (NEGATIVE) Urine Urobilinogen (0.2-1.0) mg/dL Ur Leukocyte Esterase (Negative) Michael/uL Urine RBC (Auto) (0-3) /hpf Urine Microscopic WBC (0-5) /hpf Laboratory Results - last 24 hr 06/10/18 06/10/18 06/10/18 01:00 01:00 01:12 WBC 18.0 H D RBC 3.92 L Hgb 11.9 L Hct 36.6 MCV 93.4 MCH 30.5 MCHC 32.6 L RDW 14.8 H Plt Count 261 MPV 9.2 Neut % (Auto) 94.2 H Lymph % (Auto) 2.0 L [place] % (Auto) 3.6 Eos % (Auto) 0.0 Baso % (Auto) 0.2 Neut # (Auto) 17.0 H Lymph # (Auto) 0.4 L [place] # (Auto) 0.6 Eos # (Auto) 0.0 Baso # (Auto) 0.0 Neutrophils % (Manual) 92 H Band Neutrophils % 2 Lymphocytes % (Manual) 3 L Monocytes % (Manual) 1 Eosinophils % (Manual) 1 Basophils % (Manual) 1 Platelet Estimate Normal RBC Morphology Normal pO2 22 L VBG pH 7.38 VBG pCO2 40 VBG HCO3 22.2 VBG Total CO2 24.9 VBG O2 Sat (Calc) 31.1 L VBG Base Excess -1.3 L Glucose 88 Lactate 2.4 H FiO2 21.0 Crit Value Called To Zak syed md Crit Value Called By 333 Crit Value Read Back Y Blood Gas Notified Time 115 Sodium 132 169.0 H* Potassium 5.8 H Chloride 97 L 114.0 H Carbon Dioxide 20 L Anion Gap 21 H BUN 119 H* D Creatinine 7.9 H* D Est GFR ( Amer) 8 Est GFR (Non-Af Amer) 7 POC Glucose (mg/dL) Random Glucose 94 Calcium 10.0 Total Bilirubin AST ALT Alkaline Phosphatase Total Protein Albumin Globulin Albumin/Globulin Ratio Urine Color Urine Clarity Urine pH Ur Specific [place] Urine Protein Urine Glucose (UA) Urine Ketones Urine Blood Urine Nitrate Urine Bilirubin Urine Urobilinogen Ur Leukocyte Esterase Urine RBC (Auto) Urine Microscopic WBC 06/10/18 06/10/18 06/10/18 02:54 05:00 05:01 WBC RBC Hgb Hct MCV MCH MCHC RDW Plt Count MPV Neut % (Auto) Lymph % (Auto) [place] % (Auto) Eos % (Auto) Baso % (Auto) Neut # (Auto) Lymph # (Auto) [place] # (Auto) Eos # (Auto) Baso # (Auto) Neutrophils % (Manual) Band Neutrophils % Lymphocytes % (Manual) Monocytes % (Manual) Eosinophils % (Manual) Basophils % (Manual) Platelet Estimate RBC Morphology pO2 VBG pH VBG pCO2 VBG HCO3 VBG Total CO2 VBG O2 Sat (Calc) VBG Base Excess Glucose Lactate FiO2 Crit Value Called To Crit Value Called By Crit Value Read Back Blood Gas Notified Time Sodium 133 Potassium 5.1 H Chloride 98 Carbon Dioxide 21 L Anion Gap 19 BUN 115 H* Creatinine 8.4 H* Est GFR ( Amer) 7 Est GFR (Non-Af Amer) 6 POC Glucose (mg/dL) 92 Random Glucose 91 Calcium 9.8 Total Bilirubin 0.5 AST 21 ALT 14 L D Alkaline Phosphatase 69 Total Protein 6.0 L Albumin 2.9 L Globulin 3.2 Albumin/Globulin Ratio 0.9 L Urine Color Yellow Urine Clarity Cloudy Urine pH 6.0 Ur Specific [place] 1.005 Urine Protein 30 Urine Glucose (UA) Neg Urine Ketones Negative Urine Blood Large Urine Nitrate Negative Urine Bilirubin Negative Urine Urobilinogen 0.2-1.0 Ur Leukocyte Esterase Large Urine RBC (Auto) 7496 H Urine Microscopic WBC 930 H Radiology Impressions: Radiology Impressions Chest X-Ray 06/10/18 05:42 IMPRESSION: Mild cardiomegaly. Permanent pacemaker. No infiltrate. EKG/Cardiology Studies: Cardiology / EKG Studies 06/10/18 EKG [ELECTROCARDIOGRAM] Stat Comment: Mode Of Transportation: Reason For Exam: hyperkalemia Review of Systems - Cardiovascular Cardiovascular: absent: Chest Pain, Dyspnea - Respiratory Respiratory: absent: Cough, Dyspnea <Philippe Scanlon - Last Filed: 06/10/18 19:08> Assessment/Plan - Assessment and Plan (Free Text) Plan: Time spent with this patient did not overlap with any other provider's medical or critical care time. Additionally the code selected for the services rendered in this note includes the time spent: talking to the patients family, associated physicians and reviewing hospital data/results not listed here which extended to a total of 40 minutes of critical care. Attestation: Patient seen and examined at the bedside with Resident Dr. Althea Washington; and I agree with her outline of plans and management documented above as discussed on AM rounds; reflecting my review of all applicable clinical data, and participation in the care of the patient throughout the day in ICU; today, June 10, 2018.
[2018-06-10 12:42] LABS: INR 2.3; PROTHROMBIN TIME 26.1 Seconds (9.8-13.1)
[2018-06-10 12:45] LABS: PARTIAL THROMBOPLASTIN TIME 39.5 Seconds (25.6-37.1)
[2018-06-10] MEDS ORDERED: Sodium Chloride 0.9% 1,000 ML IV SCH ×3 (13:00→21:00)
[2018-06-10] MEDS: Albuterol-Ipratrop 3 mg / 0.5 (3 ml) UD INH SCH ×2 (13:15→19:14)
[2018-06-10 13:20] LABS: ANISOCYTOSIS SLIGHT; BANDS 8 % (0-2); HYPOCHROMIC SLIGHT; LYMPHOCYTE 3 % (20-50); MONOCYTE 7 % (0-10); NEUTROPHIL 82 % (42-75); OVALOCYTES SLIGHT; PLATELET ESTIMATE NORMAL (NORMAL); SCHISTOCYTES SLIGHT; TOTAL CELLS COUNTED 100; TOXIC GRANULATION PRESENT
[2018-06-10 13:21] LABS: PLATELET CLUMPS PRESENT
--- NOTE | 2018-06-10 17:35 | PCM.PROC ---
<Nikole Washington - Last Filed: 06/10/18 17:35> Procedures Attestation:: I certify that I have explained the specified Operation(s) or Procedure(s), risks, benefits and reasonable alternatives to the Patient and/or other person responsible. The opportunity was given to ask questions and all questions answered - Arterial Line Right Femoral Aseptic technique was employed throughout the procedure: Hand Hygiene done prior to procedure, Full sterile barriers (mask, hair cover, sterile gown, sterile gloves), Full body sterile drape, Chloraprep Antiseptic: 2 minute prep for Femoral Time Out Performed: Yes Pt. placed on Pulse Ox Monitor: Yes Central Line Prep: Chlorhexidine-Alcohol Combination Local Anesthesia Used: Lidocaine 1% Amount of Anesthesia Used (mls): 6 Ultrasound Used for Placement: No Gauge (Size): 20 gauge Technique Used: Guide Wire Technique Secured by: Suture Post procedure dressing: Clear vapor permeable, Chlorhexidine disc (Biopatch) Patient Tolerated Procedure: well Immediate Complications: none - Central Line Placement Right Femoral Triple Lumen Catheter Aseptic technique was employed throughout the procedure: Hand Hygiene done prior to procedure, Full sterile barriers (mask, hair cover, sterile gown, sterile gloves), Full body sterile drape, Chloraprep Antiseptic: 2 minute prep for Femoral CVP Time Out Performed: Yes Pt. Placed on Pulse Ox Monitor: Yes Central Line Prep: Chlorhexidine-Alcohol Combination Local Anesthesia Used: Lidocaine 1% Amount of Anesthesia Used (mls): 6 Ultrasound Used for Placement: No Central Line Lumen Inserted: triple Central Line Length: 20 cm Post Procedure: Sutured in Place, Good Blood Return, All Ports Aspirated, Flushed, Capped, Sterile Dressing Applied Secured by: Suture Post procedure dressing: Clear vapor permeable, Chlorhexidine disc (Biopatch) Post Procedure X-Ray: No Patient Tolerated Procedure: Well Immediate Complications: None <CapoPhilippe Talita - Last Filed: 06/10/18 19:10> Procedures Attestation:: I certify that I have explained the specified Operation(s) or Procedure(s), risks, benefits and reasonable alternatives to the Patient and/or other person responsible. The opportunity was given to ask questions and all questions answered - Arterial Line Right Femoral Additional Comments: Procedure performed in ICU under emergent conditions, indications include need for [id number] measurements during vasopressor titration and frequent ABGs. Procedure performed by Resident physician Dr. Althea Washington under my supervision at the bedside in its entirety. Patient tolerated procedure well and no immediate complications noted. Femoral site chosen due to existing coagulopathy. - Central Line Placement Right Femoral Triple Lumen Catheter Additional Comments: Procedure performed in ICU under emergent conditions, indications include need for vasopressor infusion and rapid IVF infusion, given poor peripheral IV access. Procedure performed by Resident physician Dr. Althea Washington under my supervision at the bedside in its entirety. Patient tolerated procedure well and no immediate complications noted. Femoral site chosen due to existing coagulopathy.
[2018-06-10 18:17] LABS: HEMOGLOBIN 9.3 g/dL (12.0-18.0); LYMPH # 0.6 K/uL (1.0-4.3); LYMPH % 2.8 % (20.0-40.0); MEAN CELL VOLUME 93.7 fl (80.0-94.0); MEAN CORPUSCULAR HEMOGLOBIN 30.7 pg (27.0-31.0); MEAN CORPUSCULAR HGB CONC 32.8 g/dL (33.0-37.0); MEAN PLATELET VOLUME 8.9 fl (7.2-11.7); MONO # 1.1 K/uL (0.0-0.8); MONO % 4.8 % (0.0-10.0); NEUT # 20.8 K/uL (1.8-7.0); NEUT % 92.4 % (50.0-75.0); PLATELET COUNT 211 K/uL (130-400); RBC 3.04 Mil/uL (4.40-5.90); RED CELL DISTRIBUTION WIDTH 14.8 % (11.5-14.5); WHITE BLOOD COUNT 22.6 K/uL (4.8-10.8)
[2018-06-10 18:31] LABS: CALCIUM 8.6 mg/dL (8.4-10.2)
[2018-06-10] MEDS ORDERED: Aztreonam 2 GM in Sodium Chloride 0.9% 100 ML IVPB ONE (18:33)
[2018-06-10] MEDS: Sodium Chloride 0.9% 1,000 ML IV SCH ×3 (18:49→18:51)
--- NOTE | 2018-06-10 18:54 | CP.PCM.CON ---
History of Present Illness - History of Present Illness History of Present Illness: I was asked to see patient by Dr Dueñas patient seen 06/10/18 [id number] Patient is a 82 year old male with HTN, afib CAD/ s/p stent LAD, PPM who presents with acture renal failure. He is a residential resident, and was ntoed to have signficant hematuria. He was admitted to the ICU due to hypotension. he is on levophed. Review of Systems - Review of Systems Systems not reviewed;Unavailable: Altered Mental Status Past Patient History - Past Medical History & Family History Past Medical History?: Yes - Past Social History Smoking Status: Never Smoked - CARDIAC Hx Atrial Fibrillation: Yes Hx Cardia Arrhythmia: Yes (bradycardia) Hx Congestive Heart Failure: Yes Hx Hypercholesterolemia: Yes Hx Hypertension: Yes Hx Pacemaker: Yes - PULMONARY Hx Respiratory Disorders: No - NEUROLOGICAL Hx Neurological Disorder: No - HEENT Hx HEENT Problems: No - RENAL Hx Chronic Kidney Disease: No - ENDOCRINE/METABOLIC Hx Hypothyroidism: Yes - HEMATOLOGICAL/ONCOLOGICAL Hx AIDS: No Hx Human Immunodeficiency Virus (HIV): No - INTEGUMENTARY Hx Dermatological Problems: No Hx Cellulitis: Yes - MUSCULOSKELETAL/RHEUMATOLOGICAL Hx Musculoskeletal Disorders: Yes Hx Falls: Yes - GASTROINTESTINAL Hx Gastrointestinal Disorders: No - GENITOURINARY/GYNECOLOGICAL Hx Hematuria: Yes Hx Urinary Tract Infection: Yes - PSYCHIATRIC Hx Psychophysiologic Disorder: No Hx Emotional Abuse: No Hx Physical Abuse: No Hx Substance Use: No - SURGICAL HISTORY Hx Tonsillectomy: Yes - ANESTHESIA Hx Anesthesia: Yes Hx Anesthesia Reactions: No Hx Malignant Hyperthermia: No Meds Allergies/Adverse Reactions: Allergies Allergy/AdvReac Type Severity Reaction Status Date / Time No Known Allergies Allergy Unknown RASH Verified 06/09/18 23:08 - Medications Medications: Current Medications Albuterol/Ipratropium (Duoneb 3 Mg/0.5 Mg (3 Ml) Ud) 3 ml INH RTID [facility] Last Admin: 06/10/18 13:15 Dose: 3 ml Clopidogrel Bisulfate (Plavix) 75 mg PO DAILY [facility] Sodium Chloride (Sodium Chloride 0.9%) 1,000 mls @ 150 mls/hr IV .Q6H40M [facility] Stop: 06/11/18 12:26 Last Admin: 06/10/18 18:50 Dose: 150 mls/hr Norepinephrine Bitartrate 4 mg (/ Dextrose) 254 mls @ 9.53 mls/hr IV .Q24H BRIAN; Protocol Last Admin: 06/10/18 18:47 Dose: 2.5 mcg/min, 9.53 mls/hr Sodium Chloride (Sodium Chloride 0.9%) 1,000 mls @ 1,000 mls/hr IV .Q1H [facility]RIAN Stop: 06/11/18 15:03 Last Admin: 06/10/18 18:50 Dose: 1,000 mls/hr Aztreonam 2 gm/ Sodium (Chloride) 100 mls @ 100 mls/hr IVPB ONCE ONE; Protocol Stop: 06/10/18 19:32 Aztreonam 500 mg/ Sodium (Chloride) 50 mls @ 50 mls/hr IVPB Q8 BRIAN; Protocol Vancomycin HCl 1 gm/ Sodium (Chloride) 250 mls @ 166.667 mls/hr IVPB ONCE ONE; Protocol Stop: 06/11/18 20:05 Physical Exam - Constitutional Appears: Chronically Ill - Head Exam Head Exam: NORMAL INSPECTION - Eye Exam Eye Exam: Normal appearance - ENT Exam ENT Exam: Mucous Membranes Dry - Neck Exam Neck exam: Positive for: Full Rom - Respiratory Exam Respiratory Exam: Decreased Breath Sounds - Cardiovascular Exam Cardiovascular Exam: Irregular Rhythm - GI/Abdominal Exam GI & Abdominal Exam: Normal Bowel Sounds - Rectal Exam Rectal Exam: Deferred - Extremities Exam Extremities exam: Positive for: pedal edema - Back Exam Back exam: NORMAL INSPECTION - Skin Skin Exam: Normal Color Results - Vital Signs Recent Vital Signs: Last Vital Signs Temp 97.6 F 06/10/18 16:00 Pulse 62 06/10/18 18:00 Resp 21 06/10/18 18:00 BP 111/51 L 06/10/18 18:00 Pulse Ox 99 06/10/18 18:00 - Labs Result Diagrams: 06/11/18 18:20 06/11/18 05:55 Labs: Laboratory Results - last 24 hr 06/10/18 06/10/18 06/10/18 01:00 01:00 01:12 WBC 18.0 H D RBC 3.92 L Hgb 11.9 L Hct 36.6 MCV 93.4 MCH 30.5 MCHC 32.6 L RDW 14.8 H Plt Count 261 MPV 9.2 Neut % (Auto) 94.2 H Lymph % (Auto) 2.0 L [place] % (Auto) 3.6 Eos % (Auto) 0.0 Baso % (Auto) 0.2 Neut # (Auto) 17.0 H Lymph # (Auto) 0.4 L [place] # (Auto) 0.6 Eos # (Auto) 0.0 Baso # (Auto) 0.0 Neutrophils % (Manual) 92 H Band Neutrophils % 2 Lymphocytes % (Manual) 3 L Monocytes % (Manual) 1 Eosinophils % (Manual) 1 Basophils % (Manual) 1 Toxic Granulation Platelet Estimate Normal Plt Clumps, EDTA RBC Morphology Normal Hypochromasia (manual) Anisocytosis (manual) Ovalocytes Schistocytes PT INR APTT pO2 22 L VBG pH 7.38 VBG pCO2 40 VBG HCO3 22.2 VBG Total CO2 24.9 VBG O2 Sat (Calc) 31.1 L VBG Base Excess -1.3 L Glucose 88 Lactate 2.4 H FiO2 21.0 Crit Value Called To Zak syed md Crit Value Called By 333 Crit Value Read Back Y Blood Gas Notified Time 115 Sodium 132 169.0 H* Potassium 5.8 H Chloride 97 L 114.0 H Carbon Dioxide 20 L Anion Gap 21 H BUN 119 H* D Creatinine 7.9 H* D Est GFR ( Amer) 8 Est GFR (Non-Af Amer) 7 POC Glucose (mg/dL) Random Glucose 94 Lactic Acid Calcium 10.0 Total Bilirubin AST ALT Alkaline Phosphatase Troponin I Total Protein Albumin Globulin Albumin/Globulin Ratio Thyroxine (T4) Urine Color Urine Clarity Urine pH Ur Specific [place] Urine Protein Urine Glucose (UA) Urine Ketones Urine Blood Urine Nitrate Urine Bilirubin Urine Urobilinogen Ur Leukocyte Esterase Urine RBC (Auto) Urine Microscopic WBC Ur Random Sodium Ur Random Potassium Digoxin BBK History Checked 06/10/18 06/10/18 06/10/18 02:54 05:00 05:01 WBC RBC Hgb Hct MCV MCH MCHC RDW Plt Count MPV Neut % (Auto) Lymph % (Auto) [place] % (Auto) Eos % (Auto) Baso % (Auto) Neut # (Auto) Lymph # (Auto) [place] # (Auto) Eos # (Auto) Baso # (Auto) Neutrophils % (Manual) Band Neutrophils % Lymphocytes % (Manual) Monocytes % (Manual) Eosinophils % (Manual) Basophils % (Manual) Toxic Granulation Platelet Estimate Plt Clumps, EDTA RBC Morphology Hypochromasia (manual) Anisocytosis (manual) Ovalocytes Schistocytes PT INR APTT pO2 VBG pH VBG pCO2 VBG HCO3 VBG Total CO2 VBG O2 Sat (Calc) VBG Base Excess Glucose Lactate FiO2 Crit Value Called To Crit Value Called By Crit Value Read Back Blood Gas Notified Time Sodium 133 Potassium 5.1 H Chloride 98 Carbon Dioxide 21 L Anion Gap 19 BUN 115 H* Creatinine 8.4 H* Est GFR ( Amer) 7 Est GFR (Non-Af Amer) 6 POC Glucose (mg/dL) 92 Random Glucose 91 Lactic Acid Calcium 9.8 Total Bilirubin 0.5 AST 21 ALT 14 L D Alkaline Phosphatase 69 Troponin I Total Protein 6.0 L Albumin 2.9 L Globulin 3.2 Albumin/Globulin Ratio 0.9 L Thyroxine (T4) Urine Color Yellow Urine Clarity Cloudy Urine pH 6.0 Ur Specific [place] 1.005 Urine Protein 30 Urine Glucose (UA) Neg Urine Ketones Negative Urine Blood Large Urine Nitrate Negative Urine Bilirubin Negative Urine Urobilinogen 0.2-1.0 Ur Leukocyte Esterase Large Urine RBC (Auto) 7496 H Urine Microscopic WBC 930 H Ur Random Sodium Ur Random Potassium Digoxin BBK History Checked 06/10/18 06/10/18 06/10/18 10:38 12:08 12:50 WBC 24.1 H RBC 3.06 L Hgb 9.4 L D Hct 28.6 L MCV 93.5 MCH 30.9 MCHC 33.0 RDW 14.9 H Plt Count 213 MPV 8.8 Neut % (Auto) 91.9 H Lymph % (Auto) 3.0 L [place] % (Auto) 4.9 Eos % (Auto) 0.1 Baso % (Auto) 0.1 Neut # (Auto) 22.2 H Lymph # (Auto) 0.7 L [place] # (Auto) 1.2 H Eos # (Auto) 0.0 Baso # (Auto) 0.0 Neutrophils % (Manual) 82 H Band Neutrophils % 8 H Lymphocytes % (Manual) 3 L Monocytes % (Manual) 7 Eosinophils % (Manual) Basophils % (Manual) Toxic Granulation Present Platelet Estimate Normal Plt Clumps, EDTA Present RBC Morphology Hypochromasia (manual) Slight Anisocytosis (manual) Slight Ovalocytes Slight Schistocytes Slight PT 26.1 H INR 2.3 APTT 39.5 H pO2 VBG pH VBG pCO2 VBG HCO3 VBG Total CO2 VBG O2 Sat (Calc) VBG Base Excess Glucose Lactate FiO2 Crit Value Called To Crit Value Called By Crit Value Read Back Blood Gas Notified Time Sodium Potassium Chloride Carbon Dioxide Anion Gap BUN Creatinine Est GFR ( Amer) Est GFR (Non-Af Amer) POC Glucose (mg/dL) Random Glucose Lactic Acid Calcium Total Bilirubin AST ALT Alkaline Phosphatase Troponin I 0.0350 Total Protein Albumin Globulin Albumin/Globulin Ratio Thyroxine (T4) Urine Color Urine Clarity Urine pH Ur Specific [place] Urine Protein Urine Glucose (UA) Urine Ketones Urine Blood Urine Nitrate Urine Bilirubin Urine Urobilinogen Ur Leukocyte Esterase Urine RBC (Auto) Urine Microscopic WBC Ur Random Sodium Ur Random Potassium Digoxin BBK History Checked 06/10/18 06/10/18 06/10/18 17:00 17:45 17:45 WBC 22.6 H RBC 3.04 L Hgb 9.3 L Hct 28.5 L MCV 93.7 MCH 30.7 MCHC 32.8 L RDW 14.8 H Plt Count 211 MPV 8.9 Neut % (Auto) 92.4 H Lymph % (Auto) 2.8 L [place] % (Auto) 4.8 Eos % (Auto) 0.0 Baso % (Auto) 0.0 Neut # (Auto) 20.8 H Lymph # (Auto) 0.6 L [place] # (Auto) 1.1 H Eos # (Auto) 0.0 Baso # (Auto) 0.0 Neutrophils % (Manual) Band Neutrophils % Lymphocytes % (Manual) Monocytes % (Manual) Eosinophils % (Manual) Basophils % (Manual) Toxic Granulation Platelet Estimate Plt Clumps, EDTA RBC Morphology Hypochromasia (manual) Anisocytosis (manual) Ovalocytes Schistocytes PT INR APTT pO2 VBG pH VBG pCO2 VBG HCO3 VBG Total CO2 VBG O2 Sat (Calc) VBG Base Excess Glucose Lactate FiO2 Crit Value Called To Crit Value Called By Crit Value Read Back Blood Gas Notified Time Sodium 134 Potassium 4.7 Chloride 106 Carbon Dioxide 17 L Anion Gap 16 BUN 107 H* Creatinine 6.2 H Est GFR ( Amer) 11 Est GFR (Non-Af Amer) 9 POC Glucose (mg/dL) Random Glucose 93 Lactic Acid Calcium 8.6 Total Bilirubin AST ALT Alkaline Phosphatase Troponin I Total Protein Albumin Globulin Albumin/Globulin Ratio Thyroxine (T4) 2.81 L Urine Color Urine Clarity Urine pH Ur Specific [place] Urine Protein Urine Glucose (UA) Urine Ketones Urine Blood Urine Nitrate Urine Bilirubin Urine Urobilinogen Ur Leukocyte Esterase Urine RBC (Auto) Urine Microscopic WBC Ur Random Sodium 90 Ur Random Potassium 28.2 Digoxin BBK History Checked 06/10/18 06/10/18 06/10/18 17:45 17:45 17:45 WBC RBC Hgb Hct MCV MCH MCHC RDW Plt Count MPV Neut % (Auto) Lymph % (Auto) [place] % (Auto) Eos % (Auto) Baso % (Auto) Neut # (Auto) Lymph # (Auto) [place] # (Auto) Eos # (Auto) Baso # (Auto) Neutrophils % (Manual) Band Neutrophils % Lymphocytes % (Manual) Monocytes % (Manual) Eosinophils % (Manual) Basophils % (Manual) Toxic Granulation Platelet Estimate Plt Clumps, EDTA RBC Morphology Hypochromasia (manual) Anisocytosis (manual) Ovalocytes Schistocytes PT INR APTT pO2 VBG pH VBG pCO2 VBG HCO3 VBG Total CO2 VBG O2 Sat (Calc) VBG Base Excess Glucose Lactate FiO2 Crit Value Called To Crit Value Called By Crit Value Read Back Blood Gas Notified Time Sodium Potassium Chloride Carbon Dioxide Anion Gap BUN Creatinine Est GFR ( Amer) Est GFR (Non-Af Amer) POC Glucose (mg/dL) Random Glucose Lactic Acid 1.4 Calcium Total Bilirubin AST ALT Alkaline Phosphatase Troponin I 0.0300 Total Protein Albumin Globulin Albumin/Globulin Ratio Thyroxine (T4) Urine Color Urine Clarity Urine pH Ur Specific [place] Urine Protein Urine Glucose (UA) Urine Ketones Urine Blood Urine Nitrate Urine Bilirubin Urine Urobilinogen Ur Leukocyte Esterase Urine RBC (Auto) Urine Microscopic WBC Ur Random Sodium Ur Random Potassium Digoxin BBK History Checked Patient has bt 06/10/18 18:00 WBC RBC Hgb Hct MCV MCH MCHC RDW Plt Count MPV Neut % (Auto) Lymph % (Auto) [place] % (Auto) Eos % (Auto) Baso % (Auto) Neut # (Auto) Lymph # (Auto) [place] # (Auto) Eos # (Auto) Baso # (Auto) Neutrophils % (Manual) Band Neutrophils % Lymphocytes % (Manual) Monocytes % (Manual) Eosinophils % (Manual) Basophils % (Manual) Toxic Granulation Platelet Estimate Plt Clumps, EDTA RBC Morphology Hypochromasia (manual) Anisocytosis (manual) Ovalocytes Schistocytes PT INR APTT pO2 VBG pH VBG pCO2 VBG HCO3 VBG Total CO2 VBG O2 Sat (Calc) VBG Base Excess Glucose Lactate FiO2 Crit Value Called To Crit Value Called By Crit Value Read Back Blood Gas Notified Time Sodium Potassium Chloride Carbon Dioxide Anion Gap BUN Creatinine Est GFR ( Amer) Est GFR (Non-Af Amer) POC Glucose (mg/dL) Random Glucose Lactic Acid Calcium Total Bilirubin AST ALT Alkaline Phosphatase Troponin I Total Protein Albumin Globulin Albumin/Globulin Ratio Thyroxine (T4) Urine Color Urine Clarity Urine pH Ur Specific [place] Urine Protein Urine Glucose (UA) Urine Ketones Urine Blood Urine Nitrate Urine Bilirubin Urine Urobilinogen Ur Leukocyte Esterase Urine RBC (Auto) Urine Microscopic WBC Ur Random Sodium Ur Random Potassium Digoxin 2.1 H BBK History Checked - EKG Data EKG Interpreted by: Myself Assessment & Plan (1) Atrial fibrillation Assessment and Plan: given hematuria will hold anticoagulation. paced ventriuclar rhythm Status: Chronic (2) Aortic stenosis Assessment and Plan: mild by previous cath Status: Acute (3) CAD (coronary artery disease) Assessment and Plan: stent thismonth. recommend antiplatelet therapy to reduce risk of stent thrombosis. add Plavix Status: Acute
--- NOTE | 2018-06-10 18:54 | CP.PCM.CON ---
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 currently in ICU will add Plavix given WILVER. no anticaogulation for afib low dose Levophed. Past Patient History - Past Medical History & Family History Past Medical History?: Yes - Past Social History Smoking Status: Never Smoked - CARDIAC Hx Atrial Fibrillation: Yes Hx Cardia Arrhythmia: Yes (bradycardia) Hx Congestive Heart Failure: Yes Hx Hypercholesterolemia: Yes Hx Hypertension: Yes Hx Pacemaker: Yes - PULMONARY Hx Respiratory Disorders: No - NEUROLOGICAL Hx Neurological Disorder: No - HEENT Hx HEENT Problems: No - RENAL Hx Chronic Kidney Disease: No - ENDOCRINE/METABOLIC Hx Hypothyroidism: Yes - HEMATOLOGICAL/ONCOLOGICAL Hx AIDS: No Hx Human Immunodeficiency Virus (HIV): No - INTEGUMENTARY Hx Dermatological Problems: No Hx Cellulitis: Yes - MUSCULOSKELETAL/RHEUMATOLOGICAL Hx Musculoskeletal Disorders: Yes Hx Falls: Yes - GASTROINTESTINAL Hx Gastrointestinal Disorders: No - GENITOURINARY/GYNECOLOGICAL Hx Hematuria: Yes Hx Urinary Tract Infection: Yes - PSYCHIATRIC Hx Psychophysiologic Disorder: No Hx Emotional Abuse: No Hx Physical Abuse: No Hx Substance Use: No - SURGICAL HISTORY Hx Tonsillectomy: Yes - ANESTHESIA Hx Anesthesia: Yes Hx Anesthesia Reactions: No Hx Malignant Hyperthermia: No Meds Allergies/Adverse Reactions: Allergies Allergy/AdvReac Type Severity Reaction Status Date / Time No Known Allergies Allergy Unknown RASH Verified 06/09/18 23:08 - Medications Medications: Current Medications Albuterol/Ipratropium (Duoneb 3 Mg/0.5 Mg (3 Ml) Ud) 3 ml INH RTID [facility] Last Admin: 06/10/18 13:15 Dose: 3 ml Clopidogrel Bisulfate (Plavix) 75 mg PO DAILY [facility] Sodium Chloride (Sodium Chloride 0.9%) 1,000 mls @ 150 mls/hr IV .Q6H40M [facility] Stop: 06/11/18 12:26 Last Admin: 06/10/18 18:50 Dose: 150 mls/hr Norepinephrine Bitartrate 4 mg (/ Dextrose) 254 mls @ 9.53 mls/hr IV .Q24H [facility]; Protocol Last Admin: 06/10/18 18:47 Dose: 2.5 mcg/min, 9.53 mls/hr Sodium Chloride (Sodium Chloride 0.9%) 1,000 mls @ 1,000 mls/hr IV .Q1H [facility] Stop: 06/11/18 15:03 Last Admin: 06/10/18 18:50 Dose: 1,000 mls/hr Aztreonam 2 gm/ Sodium (Chloride) 100 mls @ 100 mls/hr IVPB ONCE ONE; Protocol Stop: 06/10/18 19:32 Aztreonam 500 mg/ Sodium (Chloride) 50 mls @ 50 mls/hr IVPB Q8 [facility]; Protocol Vancomycin HCl 1 gm/ Sodium (Chloride) 250 mls @ 166.667 mls/hr IVPB ONCE ONE; Protocol Stop: 06/11/18 20:05 Results - Vital Signs Recent Vital Signs: Last Vital Signs Temp 97.6 F 06/10/18 16:00 Pulse 62 06/10/18 18:00 Resp 21 06/10/18 18:00 BP 111/51 L 06/10/18 18:00 Pulse Ox 99 06/10/18 18:00 - Labs Result Diagrams: 06/10/18 17:45 06/10/18 17:45 Labs: Laboratory Results - last 24 hr 06/10/18 06/10/18 06/10/18 01:00 01:00 01:12 WBC 18.0 H D RBC 3.92 L Hgb 11.9 L Hct 36.6 MCV 93.4 MCH 30.5 MCHC 32.6 L RDW 14.8 H Plt Count 261 MPV 9.2 Neut % (Auto) 94.2 H Lymph % (Auto) 2.0 L [place] % (Auto) 3.6 Eos % (Auto) 0.0 Baso % (Auto) 0.2 Neut # (Auto) 17.0 H Lymph # (Auto) 0.4 L [place] # (Auto) 0.6 Eos # (Auto) 0.0 Baso # (Auto) 0.0 Neutrophils % (Manual) 92 H Band Neutrophils % 2 Lymphocytes % (Manual) 3 L Monocytes % (Manual) 1 Eosinophils % (Manual) 1 Basophils % (Manual) 1 Toxic Granulation Platelet Estimate Normal Plt Clumps, EDTA RBC Morphology Normal Hypochromasia (manual) Anisocytosis (manual) Ovalocytes Schistocytes PT INR APTT pO2 22 L VBG pH 7.38 VBG pCO2 40 VBG HCO3 22.2 VBG Total CO2 24.9 VBG O2 Sat (Calc) 31.1 L VBG Base Excess -1.3 L Glucose 88 Lactate 2.4 H FiO2 21.0 Crit Value Called To Zka syed md Crit Value Called By 333 Crit Value Read Back Y Blood Gas Notified Time 115 Sodium 132 169.0 H* Potassium 5.8 H Chloride 97 L 114.0 H Carbon Dioxide 20 L Anion Gap 21 H BUN 119 H* D Creatinine 7.9 H* D Est GFR ( Amer) 8 Est GFR (Non-Af Amer) 7 POC Glucose (mg/dL) Random Glucose 94 Lactic Acid Calcium 10.0 Total Bilirubin AST ALT Alkaline Phosphatase Troponin I Total Protein Albumin Globulin Albumin/Globulin Ratio Thyroxine (T4) Urine Color Urine Clarity Urine pH Ur Specific [place] Urine Protein Urine Glucose (UA) Urine Ketones Urine Blood Urine Nitrate Urine Bilirubin Urine Urobilinogen Ur Leukocyte Esterase Urine RBC (Auto) Urine Microscopic WBC Ur Random Sodium Ur Random Potassium Digoxin BBK History Checked 06/10/18 06/10/18 06/10/18 02:54 05:00 05:01 WBC RBC Hgb Hct MCV MCH MCHC RDW Plt Count MPV Neut % (Auto) Lymph % (Auto) [place] % (Auto) Eos % (Auto) Baso % (Auto) Neut # (Auto) Lymph # (Auto) [place] # (Auto) Eos # (Auto) Baso # (Auto) Neutrophils % (Manual) Band Neutrophils % Lymphocytes % (Manual) Monocytes % (Manual) Eosinophils % (Manual) Basophils % (Manual) Toxic Granulation Platelet Estimate Plt Clumps, EDTA RBC Morphology Hypochromasia (manual) Anisocytosis (manual) Ovalocytes Schistocytes PT INR APTT pO2 VBG pH VBG pCO2 VBG HCO3 VBG Total CO2 VBG O2 Sat (Calc) VBG Base Excess Glucose Lactate FiO2 Crit Value Called To Crit Value Called By Crit Value Read Back Blood Gas Notified Time Sodium 133 Potassium 5.1 H Chloride 98 Carbon Dioxide 21 L Anion Gap 19 BUN 115 H* Creatinine 8.4 H* Est GFR ( Amer) 7 Est GFR (Non-Af Amer) 6 POC Glucose (mg/dL) 92 Random Glucose 91 Lactic Acid Calcium 9.8 Total Bilirubin 0.5 AST 21 ALT 14 L D Alkaline Phosphatase 69 Troponin I Total Protein 6.0 L Albumin 2.9 L Globulin 3.2 Albumin/Globulin Ratio 0.9 L Thyroxine (T4) Urine Color Yellow Urine Clarity Cloudy Urine pH 6.0 Ur Specific [place] 1.005 Urine Protein 30 Urine Glucose (UA) Neg Urine Ketones Negative Urine Blood Large Urine Nitrate Negative Urine Bilirubin Negative Urine Urobilinogen 0.2-1.0 Ur Leukocyte Esterase Large Urine RBC (Auto) 7496 H Urine Microscopic WBC 930 H Ur Random Sodium Ur Random Potassium Digoxin BBK History Checked 06/10/18 06/10/18 06/10/18 10:38 12:08 12:50 WBC 24.1 H RBC 3.06 L Hgb 9.4 L D Hct 28.6 L MCV 93.5 MCH 30.9 MCHC 33.0 RDW 14.9 H Plt Count 213 MPV 8.8 Neut % (Auto) 91.9 H Lymph % (Auto) 3.0 L [place] % (Auto) 4.9 Eos % (Auto) 0.1 Baso % (Auto) 0.1 Neut # (Auto) 22.2 H Lymph # (Auto) 0.7 L [place] # (Auto) 1.2 H Eos # (Auto) 0.0 Baso # (Auto) 0.0 Neutrophils % (Manual) 82 H Band Neutrophils % 8 H Lymphocytes % (Manual) 3 L Monocytes % (Manual) 7 Eosinophils % (Manual) Basophils % (Manual) Toxic Granulation Present Platelet Estimate Normal Plt Clumps, EDTA Present RBC Morphology Hypochromasia (manual) Slight Anisocytosis (manual) Slight Ovalocytes Slight Schistocytes Slight PT 26.1 H INR 2.3 APTT 39.5 H pO2 VBG pH VBG pCO2 VBG HCO3 VBG Total CO2 VBG O2 Sat (Calc) VBG Base Excess Glucose Lactate FiO2 Crit Value Called To Crit Value Called By Crit Value Read Back Blood Gas Notified Time Sodium Potassium Chloride Carbon Dioxide Anion Gap BUN Creatinine Est GFR ( Amer) Est GFR (Non-Af Amer) POC Glucose (mg/dL) Random Glucose Lactic Acid Calcium Total Bilirubin AST ALT Alkaline Phosphatase Troponin I 0.0350 Total Protein Albumin Globulin Albumin/Globulin Ratio Thyroxine (T4) Urine Color Urine Clarity Urine pH Ur Specific [place] Urine Protein Urine Glucose (UA) Urine Ketones Urine Blood Urine Nitrate Urine Bilirubin Urine Urobilinogen Ur Leukocyte Esterase Urine RBC (Auto) Urine Microscopic WBC Ur Random Sodium Ur Random Potassium Digoxin BBK History Checked 06/10/18 06/10/18 06/10/18 17:00 17:45 17:45 WBC 22.6 H RBC 3.04 L Hgb 9.3 L Hct 28.5 L MCV 93.7 MCH 30.7 MCHC 32.8 L RDW 14.8 H Plt Count 211 MPV 8.9 Neut % (Auto) 92.4 H Lymph % (Auto) 2.8 L [place] % (Auto) 4.8 Eos % (Auto) 0.0 Baso % (Auto) 0.0 Neut # (Auto) 20.8 H Lymph # (Auto) 0.6 L [place] # (Auto) 1.1 H Eos # (Auto) 0.0 Baso # (Auto) 0.0 Neutrophils % (Manual) Band Neutrophils % Lymphocytes % (Manual) Monocytes % (Manual) Eosinophils % (Manual) Basophils % (Manual) Toxic Granulation Platelet Estimate Plt Clumps, EDTA RBC Morphology Hypochromasia (manual) Anisocytosis (manual) Ovalocytes Schistocytes PT INR APTT pO2 VBG pH VBG pCO2 VBG HCO3 VBG Total CO2 VBG O2 Sat (Calc) VBG Base Excess Glucose Lactate FiO2 Crit Value Called To Crit Value Called By Crit Value Read Back Blood Gas Notified Time Sodium 134 Potassium 4.7 Chloride 106 Carbon Dioxide 17 L Anion Gap 16 BUN 107 H* Creatinine 6.2 H Est GFR ( Amer) 11 Est GFR (Non-Af Amer) 9 POC Glucose (mg/dL) Random Glucose 93 Lactic Acid Calcium 8.6 Total Bilirubin AST ALT Alkaline Phosphatase Troponin I Total Protein Albumin Globulin Albumin/Globulin Ratio Thyroxine (T4) 2.81 L Urine Color Urine Clarity Urine pH Ur Specific [place] Urine Protein Urine Glucose (UA) Urine Ketones Urine Blood Urine Nitrate Urine Bilirubin Urine Urobilinogen Ur Leukocyte Esterase Urine RBC (Auto) Urine Microscopic WBC Ur Random Sodium 90 Ur Random Potassium 28.2 Digoxin BBK History Checked 06/10/18 06/10/18 06/10/18 17:45 17:45 17:45 WBC RBC Hgb Hct MCV MCH MCHC RDW Plt Count MPV Neut % (Auto) Lymph % (Auto) [place] % (Auto) Eos % (Auto) Baso % (Auto) Neut # (Auto) Lymph # (Auto) [place] # (Auto) Eos # (Auto) Baso # (Auto) Neutrophils % (Manual) Band Neutrophils % Lymphocytes % (Manual) Monocytes % (Manual) Eosinophils % (Manual) Basophils % (Manual) Toxic Granulation Platelet Estimate Plt Clumps, EDTA RBC Morphology Hypochromasia (manual) Anisocytosis (manual) Ovalocytes Schistocytes PT INR APTT pO2 VBG pH VBG pCO2 VBG HCO3 VBG Total CO2 VBG O2 Sat (Calc) VBG Base Excess Glucose Lactate FiO2 Crit Value Called To Crit Value Called By Crit Value Read Back Blood Gas Notified Time Sodium Potassium Chloride Carbon Dioxide Anion Gap BUN Creatinine Est GFR ( Amer) Est GFR (Non-Af Amer) POC Glucose (mg/dL) Random Glucose Lactic Acid 1.4 Calcium Total Bilirubin AST ALT Alkaline Phosphatase Troponin I 0.0300 Total Protein Albumin Globulin Albumin/Globulin Ratio Thyroxine (T4) Urine Color Urine Clarity Urine pH Ur Specific [place] Urine Protein Urine Glucose (UA) Urine Ketones Urine Blood Urine Nitrate Urine Bilirubin Urine Urobilinogen Ur Leukocyte Esterase Urine RBC (Auto) Urine Microscopic WBC Ur Random Sodium Ur Random Potassium Digoxin BBK History Checked Patient has bt 06/10/18 18:00 WBC RBC Hgb Hct MCV MCH MCHC RDW Plt Count MPV Neut % (Auto) Lymph % (Auto) [place] % (Auto) Eos % (Auto) Baso % (Auto) Neut # (Auto) Lymph # (Auto) [place] # (Auto) Eos # (Auto) Baso # (Auto) Neutrophils % (Manual) Band Neutrophils % Lymphocytes % (Manual) Monocytes % (Manual) Eosinophils % (Manual) Basophils % (Manual) Toxic Granulation Platelet Estimate Plt Clumps, EDTA RBC Morphology Hypochromasia (manual) Anisocytosis (manual) Ovalocytes Schistocytes PT INR APTT pO2 VBG pH VBG pCO2 VBG HCO3 VBG Total CO2 VBG O2 Sat (Calc) VBG Base Excess Glucose Lactate FiO2 Crit Value Called To Crit Value Called By Crit Value Read Back Blood Gas Notified Time Sodium Potassium Chloride Carbon Dioxide Anion Gap BUN Creatinine Est GFR ( Amer) Est GFR (Non-Af Amer) POC Glucose (mg/dL) Random Glucose Lactic Acid Calcium Total Bilirubin AST ALT Alkaline Phosphatase Troponin I Total Protein Albumin Globulin Albumin/Globulin Ratio Thyroxine (T4) Urine Color Urine Clarity Urine pH Ur Specific [place] Urine Protein Urine Glucose (UA) Urine Ketones Urine Blood Urine Nitrate Urine Bilirubin Urine Urobilinogen Ur Leukocyte Esterase Urine RBC (Auto) Urine Microscopic WBC Ur Random Sodium Ur Random Potassium Digoxin 2.1 H BBK History Checked
[2018-06-10 20:59] LABS: BANDS 8 % (0-2); LYMPHOCYTE 5 % (20-50); MONOCYTE 4 % (0-10); NEUTROPHIL 83 % (42-75); PLATELET ESTIMATE NORMAL (NORMAL); TOTAL CELLS COUNTED 100
[2018-06-10 21:00] LABS: ANISOCYTOSIS MODERATE; POIKILOCYTOSIS SLIGHT; POLYCHROMIC SLIGHT
[2018-06-10 21:01] LABS: BURR CELLS SLIGHT; OVALOCYTES SLIGHT; SCHISTOCYTES SLIGHT
[2018-06-11 06:08] LABS: BASO % 0.1 % (0.0-2.0); HEMOGLOBIN 9.5 g/dL (12.0-18.0); LYMPH # 0.8 K/uL (1.0-4.3); LYMPH % 3.5 % (20.0-40.0); MEAN CELL VOLUME 93.4 fl (80.0-94.0); MEAN CORPUSCULAR HEMOGLOBIN 30.9 pg (27.0-31.0); MEAN CORPUSCULAR HGB CONC 33.1 g/dL (33.0-37.0); MEAN PLATELET VOLUME 8.7 fl (7.2-11.7); MONO # 1.2 K/uL (0.0-0.8); MONO % 5.6 % (0.0-10.0); NEUT % 90.8 % (50.0-75.0); RBC 3.08 Mil/uL (4.40-5.90); RED CELL DISTRIBUTION WIDTH 14.8 % (11.5-14.5); WHITE BLOOD COUNT 22.1 K/uL (4.8-10.8)
[2018-06-11 06:34] LABS: ALB/GLOB RATIO 0.8 (1.0-2.1); ALBUMIN 2.4 g/dL (3.5-5.0); CALCIUM 8.9 mg/dL (8.4-10.2)
[2018-06-11] MEDS: Albuterol-Ipratrop 3 mg / 0.5 (3 ml) UD INH SCH ×3 (07:15→19:11)
--- NOTE | 2018-06-11 07:55 | RAD ---
Date of service: 06/11/2018 HISTORY: dyspnea COMPARISON: Portable chest 06/10/2018. TECHNIQUE: 1 view obtained. FINDINGS: LUNGS: No active pulmonary disease. PLEURA: No significant pleural effusion identified, no pneumothorax apparent. CARDIOVASCULAR: Calcific atherosclerotic changes are seen related to the thoracic aorta. Mild cardiomegaly. No pulmonary vascular congestion. Unipolar permanent cardiac pacemaker reiterated. OSSEOUS STRUCTURES: No significant abnormalities. VISUALIZED UPPER ABDOMEN: Normal. OTHER FINDINGS: None. IMPRESSION: Stable mild cardiomegaly. No interval active pulmonary disease. Pacemaker reiterated.
--- NOTE | 2018-06-11 08:24 | CP.CCUPN ---
<Nikole Washington - Last Filed: 06/11/18 14:35> CCU Subjective - Physician Review Subjective (Free Text): 82 YO Male with PMHx of AFib (w/ pacemaker, CAD, CHF, hypothyroidism) is admitted for acute renal failure and hematuria Patient seen and examined by beside this AM. Hypotensive improved on monitor, saturating 98-100% with 2L NC Currently on Levofed and IVFS, well tolerated. Dong continues to drain dark fluid, less viscus then yesterday Patient is awake and more alert then previously Answering all questions, states that he feels better then yesterday Labs, imaging reviewed. 1. Acute renal failure -improving -dehydration and obstruction (likely both prerenal and postrenal) unknown about any renal disease) -Nephrology on board, Urology consulted by primary team -Renal u/s and duplex pending -IV fluids and keep urine output -on Azactam and vanc (every 2-4 days 1st dose 06/11), both renal dosage given low creatinine clearance 2. Bacteremia -Bcx sig for gram neg rods -follow up cx sensitivities -elevated procalcitonin noted -started on abx coverage for gram neg -bcx pos for gram neg rods, likely from bladder/UTI -consider ID consult 3. Gross hematuria -likely 2.2 to acute renal injury -Nephrology and urology on consult -renal scans pending -IV fluids -hold anticoagulation for now given acute bleeding -stable h/h at this time, consider replacement if hb <7 4. Lactic acidosis -resolved -likely 2/2 to dehydration and infection -c/w IV fluids 5. HTN -currently hypotensive likely 2/2 to dehydration and infection -will replace fluid as tolerated -Levofed ordered for low BPs with moderate response to IVFs -hold all anti HTN meds for now 6. A fib -chronic, controlled -Pacemaker noted on monitor -Cardiology consulted; started on plavix 7. CHF -chronic, controlled -echo 04/2018 EF 55-60%, moderate TR and aortic stenosis -cardiac cath 05/18/18 with revascularization of LAD -Cardiology consulted -hold dig now given elevated dig levels, trops neg x 3 8. Hypothyroidism -chronic -follow up swallow eval 9. Diet -will follow up swallow eval -diet as tolerated 10. DVT prolx -acute bleeding, will hold for now CCU Objective - Vital Signs / Intake & Output Vital Signs (Last 4 hours): Vital Signs Temp Pulse Resp BP Pulse Ox 06/11/18 08:00 98.1 F 63 23 119/53 L 97 06/11/18 07:00 60 21 110/52 L 97 06/11/18 06:00 62 19 105/91 H 97 06/11/18 05:00 98 F 62 19 115/69 100 Intake and Output (Last 8hrs): Intake & Output 06/10/18 06/11/18 06/11/18 22:59 06:59 14:59 Intake Total 4420 1181 245 Output Total 1000 1800 Balance 3420 -619 245 Weight 90.265 kg 90.265 kg Intake: IV 4300 861 225 Intake, Piggyback 20 200 20 Oral 100 120 Output: Urine 1000 1800 Urethral (Dong) 1000 1800 Other: # Bowel Movements 0 - Physical Exam Head: Positive for: Other (on NC, 2L ) Extroacular Muscles: Positive for: EOMI Mouth: Positive for: Dry Respiratory/Chest: Positive for: Good Air Exchange. Negative for: Respiratory Distress, Wheezes, Rales Cardiovascular: Positive for: Normal S1, S2, Irregular Rhythm. Negative for: Murmurs Abdomen: Positive for: Normal Bowel Sounds. Negative for: Tenderness, Distention Genitourinary Male: Positive for: Other (Dong noted, no lesions on the surface, bag draining dark urine ) Upper Extremity: Positive for: Normal Inspection. Negative for: Edema Lower Extremity: Positive for: Normal Inspection, Other (Central and arterial line noted, R femoral and R arterial intact. ). Negative for: Edema Skin: Positive for: Warm, Dry, Normal Color Psychiatric: Positive for: Alert - Medications Active Medications: Active Medications Generic Name Dose Route Start Last Admin Trade Name Freq PRN Reason Stop Dose Admin Albuterol/Ipratropium 3 ml 06/10/18 14:00 06/11/18 07:15 Duoneb 3 Mg/0.5 Mg (3 Ml) Ud INH 3 ml RTID BRIAN Administration Clopidogrel Bisulfate 75 mg 06/10/18 19:00 06/10/18 20:11 Plavix PO 75 mg DAILY BRIAN Administration Sodium Chloride 1,000 mls @ 150 mls/hr 06/10/18 13:00 06/10/18 18:50 Sodium Chloride 0.9% IV 06/11/18 12:26 150 mls/hr .[id number] BRIAN Administration Norepinephrine Bitartrate 4 mg 254 mls @ 9.53 mls/hr 06/10/18 15:15 06/10/18 18:47 / Dextrose IV 2.5 mcg/min .Q24H BRIAN 9.53 mls/hr Administration Protocol 2.5 MCG/MIN Sodium Chloride 1,000 mls @ 1,000 mls/hr 06/10/18 15:15 06/10/18 18:50 Sodium Chloride 0.9% IV 06/11/18 15:03 1,000 mls/hr .Q1H BRIAN Administration Aztreonam 500 mg/ Sodium 50 mls @ 50 mls/hr 06/11/18 03:00 06/11/18 02:41 Chloride IVPB 50 mls/hr Q8H BRIAN Administration Protocol Vancomycin HCl 1 gm/ Sodium 250 mls @ 166.667 mls/hr 06/11/18 18:36 Chloride IVPB 06/11/18 20:05 ONCE ONE Protocol Sodium Chloride 1,000 mls @ 75 mls/hr 06/10/18 21:00 06/10/18 21:22 Sodium Chloride 0.9% IV 06/11/18 20:59 75 mls/hr .[id number] BRIAN Administration - Patient Studies Lab Studies: Microbiology Studies 06/10/18 01:15 Blood Culture - Preliminary Blood-Venous Gram Negative [place] Gram Stain - Final 06/10/18 01:00 Blood Culture - Preliminary Blood-Venous Gram Negative [place] Gram Stain - Final Lab Studies 06/11/18 06/11/18 06/11/18 Range/Units 05:55 05:55 05:45 WBC 22.1 H (4.8-10.8) K/uL RBC 3.08 L (4.40-5.90) Mil/uL Hgb 9.5 L (12.0-18.0) g/dL Hct 28.8 L (35.0-51.0) % MCV 93.4 (80.0-94.0) fl MCH 30.9 (27.0-31.0) pg MCHC 33.1 (33.0-37.0) g/dL RDW 14.8 H (11.5-14.5) % Plt Count 215 (130-400) K/uL MPV 8.7 (7.2-11.7) fl Neut % (Auto) 90.8 H (50.0-75.0) % Lymph % (Auto) 3.5 L (20.0-40.0) % [place] % (Auto) 5.6 (0.0-10.0) % Eos % (Auto) 0.0 (0.0-4.0) % Baso % (Auto) 0.1 (0.0-2.0) % Neut # (Auto) 20.0 H (1.8-7.0) K/uL Lymph # (Auto) 0.8 L (1.0-4.3) K/uL [place] # (Auto) 1.2 H (0.0-0.8) K/uL Eos # (Auto) 0.0 (0.0-0.7) K/uL Baso # (Auto) 0.0 (0.0-0.2) K/uL Total Counted Cancelled Neutrophils % (Manual) Cancelled (42-75) % Band Neutrophils % Cancelled (0-2) % Lymphocytes % (Manual) Cancelled (20-50) % Reactive Lymphs % Cancelled Monocytes % (Manual) Cancelled (0-10) % Eosinophils % (Manual) Cancelled Basophils % (Manual) Cancelled Metamyelocytes % Cancelled Myelocytes % Cancelled Promyelocytes % Cancelled Blast Cells % Cancelled Plasma Cell % (Manual) Cancelled Nucleated RBC % Cancelled Hypersegmented Polys Cancelled Smudge Cells Cancelled Toxic Granulation Cancelled Dohle Bodies Cancelled John Rods Cancelled Platelet Estimate Cancelled (NORMAL) Plt Clumps, EDTA Cancelled Large Platelets Cancelled Giant Platelets Cancelled RBC Morphology Cancelled Polychromasia Cancelled Hypochromasia (manual) Cancelled Poikilocytosis (manual Cancelled Basophilic Stippling Cancelled Anisocytosis (manual) Cancelled Microcytosis (manual) Cancelled Macrocytosis (manual) Cancelled Spherocytes Cancelled Sickle Cells Cancelled Target Cells Cancelled Tear Drop Cells Cancelled Ovalocytes Cancelled Stomatocytes Cancelled Helmet Cells Cancelled Lindquist-Flanagan Bodies Cancelled Bety Cells Cancelled Acanthocytes (Spur) Cancelled Rouleaux Cancelled Schistocytes Cancelled PT (9.8-13.1) Seconds INR APTT (25.6-37.1) Seconds Sodium 139 (132-148) mmol/l Potassium 3.9 (3.6-5.0) MMOL/L Chloride 110 H (98-107) mmol/L Carbon Dioxide 18 L (22-30) mmol/L Anion Gap 15 (10-20) BUN 98 H (9-20) mg/dl Creatinine 4.5 H (0.8-1.5) mg/dl Est GFR ( Amer) 15 Est GFR (Non-Af Amer) 13 Random Glucose 93 (75-110) mg/dL Lactic Acid (0.7-2.1) mmol/L Calcium 8.9 (8.4-10.2) mg/dL Total Bilirubin 0.3 (0.2-1.3) mg/dl AST 22 (17-59) U/L ALT 21 D (21-72) U/L Alkaline Phosphatase 66 (38-126) U/L Troponin I (0.00-0.120) ng/mL Total Protein 5.4 L (6.3-8.2) G/DL Albumin 2.4 L (3.5-5.0) g/dL Globulin 3.0 (2.2-3.9) gm/dL Albumin/Globulin Ratio 0.8 L (1.0-2.1) Procalcitonin (0.19-0.49) NG/ML Thyroxine (T4) (5.5-11.0) ug/dl TSH 3rd Generation (0.46-4.68) mIU/ML Ur Random Creatinine 75.7 mg/dL Ur Random Sodium meq/L Ur Random Potassium mmol/L Digoxin (0.8-2.0) ng/mL Blood Type Antibody Screen BBK History Checked 06/11/18 06/10/18 06/10/18 Range/Units 00:20 18:00 17:45 WBC (4.8-10.8) K/uL RBC (4.40-5.90) Mil/uL Hgb (12.0-18.0) g/dL Hct (35.0-51.0) % MCV (80.0-94.0) fl MCH (27.0-31.0) pg MCHC (33.0-37.0) g/dL RDW (11.5-14.5) % Plt Count (130-400) K/uL MPV (7.2-11.7) fl Neut % (Auto) (50.0-75.0) % Lymph % (Auto) (20.0-40.0) % [place] % (Auto) (0.0-10.0) % Eos % (Auto) (0.0-4.0) % Baso % (Auto) (0.0-2.0) % Neut # (Auto) (1.8-7.0) K/uL Lymph # (Auto) (1.0-4.3) K/uL [place] # (Auto) (0.0-0.8) K/uL Eos # (Auto) (0.0-0.7) K/uL Baso # (Auto) (0.0-0.2) K/uL Total Counted Neutrophils % (Manual) (42-75) % Band Neutrophils % (0-2) % Lymphocytes % (Manual) (20-50) % Reactive Lymphs % Monocytes % (Manual) (0-10) % Eosinophils % (Manual) Basophils % (Manual) Metamyelocytes % Myelocytes % Promyelocytes % Blast Cells % Plasma Cell % (Manual) Nucleated RBC % Hypersegmented Polys Smudge Cells Toxic Granulation Dohle Bodies John Rods Platelet Estimate (NORMAL) Plt Clumps, EDTA Large Platelets Giant Platelets RBC Morphology Polychromasia Hypochromasia (manual) Poikilocytosis (manual Basophilic Stippling Anisocytosis (manual) Microcytosis (manual) Macrocytosis (manual) Spherocytes Sickle Cells Target Cells Tear Drop Cells Ovalocytes Stomatocytes Helmet Cells Lindquist-Flanagan Bodies Bety Cells Acanthocytes (Spur) Rouleaux Schistocytes PT (9.8-13.1) Seconds INR APTT (25.6-37.1) Seconds Sodium (132-148) mmol/l Potassium (3.6-5.0) MMOL/L Chloride (98-107) mmol/L Carbon Dioxide (22-30) mmol/L Anion Gap (10-20) BUN (9-20) mg/dl Creatinine (0.8-1.5) mg/dl Est GFR ( Amer) Est GFR (Non-Af Amer) Random Glucose (75-110) mg/dL Lactic Acid (0.7-2.1) mmol/L Calcium (8.4-10.2) mg/dL Total Bilirubin (0.2-1.3) mg/dl AST (17-59) U/L ALT (21-72) U/L Alkaline Phosphatase (38-126) U/L Troponin I 0.0240 0.0300 (0.00-0.120) ng/mL Total Protein (6.3-8.2) G/DL Albumin (3.5-5.0) g/dL Globulin (2.2-3.9) gm/dL Albumin/Globulin Ratio (1.0-2.1) Procalcitonin (0.19-0.49) NG/ML Thyroxine (T4) (5.5-11.0) ug/dl TSH 3rd Generation (0.46-4.68) mIU/ML Ur Random Creatinine mg/dL Ur Random Sodium meq/L Ur Random Potassium mmol/L Digoxin 2.1 H (0.8-2.0) ng/mL Blood Type Antibody Screen BBK History Checked 06/10/18 06/10/18 06/10/18 Range/Units 17:45 17:45 17:45 WBC (4.8-10.8) K/uL RBC (4.40-5.90) Mil/uL Hgb (12.0-18.0) g/dL Hct (35.0-51.0) % MCV (80.0-94.0) fl MCH (27.0-31.0) pg MCHC (33.0-37.0) g/dL RDW (11.5-14.5) % Plt Count (130-400) K/uL MPV (7.2-11.7) fl Neut % (Auto) (50.0-75.0) % Lymph % (Auto) (20.0-40.0) % [place] % (Auto) (0.0-10.0) % Eos % (Auto) (0.0-4.0) % Baso % (Auto) (0.0-2.0) % Neut # (Auto) (1.8-7.0) K/uL Lymph # (Auto) (1.0-4.3) K/uL [place] # (Auto) (0.0-0.8) K/uL Eos # (Auto) (0.0-0.7) K/uL Baso # (Auto) (0.0-0.2) K/uL Total Counted Neutrophils % (Manual) (42-75) % Band Neutrophils % (0-2) % Lymphocytes % (Manual) (20-50) % Reactive Lymphs % Monocytes % (Manual) (0-10) % Eosinophils % (Manual) Basophils % (Manual) Metamyelocytes % Myelocytes % Promyelocytes % Blast Cells % Plasma Cell % (Manual) Nucleated RBC % Hypersegmented Polys Smudge Cells Toxic Granulation Dohle Bodies John Rods Platelet Estimate (NORMAL) Plt Clumps, EDTA Large Platelets Giant Platelets RBC Morphology Polychromasia Hypochromasia (manual) Poikilocytosis (manual Basophilic Stippling Anisocytosis (manual) Microcytosis (manual) Macrocytosis (manual) Spherocytes Sickle Cells Target Cells Tear Drop Cells Ovalocytes Stomatocytes Helmet Cells Lindquist-Flanagan Bodies Bety Cells Acanthocytes (Spur) Rouleaux Schistocytes PT (9.8-13.1) Seconds INR APTT (25.6-37.1) Seconds Sodium 134 (132-148) mmol/l Potassium 4.7 (3.6-5.0) MMOL/L Chloride 106 (98-107) mmol/L Carbon Dioxide 17 L (22-30) mmol/L Anion Gap 16 (10-20) BUN 107 H* (9-20) mg/dl Creatinine 6.2 H (0.8-1.5) mg/dl Est GFR ( Amer) 11 Est GFR (Non-Af Amer) 9 Random Glucose 93 (75-110) mg/dL Lactic Acid 1.4 (0.7-2.1) mmol/L Calcium 8.6 (8.4-10.2) mg/dL Total Bilirubin (0.2-1.3) mg/dl AST (17-59) U/L ALT (21-72) U/L Alkaline Phosphatase (38-126) U/L Troponin I (0.00-0.120) ng/mL Total Protein (6.3-8.2) G/DL Albumin (3.5-5.0) g/dL Globulin (2.2-3.9) gm/dL Albumin/Globulin Ratio (1.0-2.1) Procalcitonin (0.19-0.49) NG/ML Thyroxine (T4) 2.81 L (5.5-11.0) ug/dl TSH 3rd Generation 1.26 (0.46-4.68) mIU/ML Ur Random Creatinine mg/dL Ur Random Sodium meq/L Ur Random Potassium mmol/L Digoxin (0.8-2.0) ng/mL Blood Type B POSITIVE Antibody Screen Negative BBK History Checked Patient has bt 06/10/18 06/10/18 06/10/18 Range/Units 17:45 17:00 12:50 WBC 22.6 H (4.8-10.8) K/uL RBC 3.04 L (4.40-5.90) Mil/uL Hgb 9.3 L (12.0-18.0) g/dL Hct 28.5 L (35.0-51.0) % MCV 93.7 (80.0-94.0) fl MCH 30.7 (27.0-31.0) pg MCHC 32.8 L (33.0-37.0) g/dL RDW 14.8 H (11.5-14.5) % Plt Count 211 (130-400) K/uL MPV 8.9 (7.2-11.7) fl Neut % (Auto) 92.4 H (50.0-75.0) % Lymph % (Auto) 2.8 L (20.0-40.0) % [place] % (Auto) 4.8 (0.0-10.0) % Eos % (Auto) 0.0 (0.0-4.0) % Baso % (Auto) 0.0 (0.0-2.0) % Neut # (Auto) 20.8 H (1.8-7.0) K/uL Lymph # (Auto) 0.6 L (1.0-4.3) K/uL [place] # (Auto) 1.1 H (0.0-0.8) K/uL Eos # (Auto) 0.0 (0.0-0.7) K/uL Baso # (Auto) 0.0 (0.0-0.2) K/uL Total Counted Neutrophils % (Manual) 83 H (42-75) % Band Neutrophils % 8 H (0-2) % Lymphocytes % (Manual) 5 L (20-50) % Reactive Lymphs % Monocytes % (Manual) 4 (0-10) % Eosinophils % (Manual) Basophils % (Manual) Metamyelocytes % Myelocytes % Promyelocytes % Blast Cells % Plasma Cell % (Manual) Nucleated RBC % Hypersegmented Polys Smudge Cells Toxic Granulation Dohle Bodies John Rods Platelet Estimate Normal (NORMAL) Plt Clumps, EDTA Large Platelets Giant Platelets RBC Morphology Polychromasia Slight Hypochromasia (manual) Poikilocytosis (manual Slight Basophilic Stippling Anisocytosis (manual) Moderate Microcytosis (manual) Macrocytosis (manual) Spherocytes Sickle Cells Target Cells Tear Drop Cells Ovalocytes Slight Stomatocytes Helmet Cells Lindquist-Flanagan Bodies Bety Cells Slight Acanthocytes (Spur) Rouleaux Schistocytes Slight PT (9.8-13.1) Seconds INR APTT (25.6-37.1) Seconds Sodium (132-148) mmol/l Potassium (3.6-5.0) MMOL/L Chloride (98-107) mmol/L Carbon Dioxide (22-30) mmol/L Anion Gap (10-20) BUN (9-20) mg/dl Creatinine (0.8-1.5) mg/dl Est GFR ( Amer) Est GFR (Non-Af Amer) Random Glucose (75-110) mg/dL Lactic Acid (0.7-2.1) mmol/L Calcium (8.4-10.2) mg/dL Total Bilirubin (0.2-1.3) mg/dl AST (17-59) U/L ALT (21-72) U/L Alkaline Phosphatase (38-126) U/L Troponin I 0.0350 (0.00-0.120) ng/mL Total Protein (6.3-8.2) G/DL Albumin (3.5-5.0) g/dL Globulin (2.2-3.9) gm/dL Albumin/Globulin Ratio (1.0-2.1) Procalcitonin (0.19-0.49) NG/ML Thyroxine (T4) (5.5-11.0) ug/dl TSH 3rd Generation (0.46-4.68) mIU/ML Ur Random Creatinine mg/dL Ur Random Sodium 90 meq/L Ur Random Potassium 28.2 mmol/L Digoxin (0.8-2.0) ng/mL Blood Type Antibody Screen BBK History Checked 06/10/18 06/10/18 06/10/18 Range/Units 12:08 10:38 08:45 WBC 24.1 H (4.8-10.8) K/uL RBC 3.06 L (4.40-5.90) Mil/uL Hgb 9.4 L D (12.0-18.0) g/dL Hct 28.6 L (35.0-51.0) % MCV 93.5 (80.0-94.0) fl MCH 30.9 (27.0-31.0) pg MCHC 33.0 (33.0-37.0) g/dL RDW 14.9 H (11.5-14.5) % Plt Count 213 (130-400) K/uL MPV 8.8 (7.2-11.7) fl Neut % (Auto) 91.9 H (50.0-75.0) % Lymph % (Auto) 3.0 L (20.0-40.0) % [place] % (Auto) 4.9 (0.0-10.0) % Eos % (Auto) 0.1 (0.0-4.0) % Baso % (Auto) 0.1 (0.0-2.0) % Neut # (Auto) 22.2 H (1.8-7.0) K/uL Lymph # (Auto) 0.7 L (1.0-4.3) K/uL [place] # (Auto) 1.2 H (0.0-0.8) K/uL Eos # (Auto) 0.0 (0.0-0.7) K/uL Baso # (Auto) 0.0 (0.0-0.2) K/uL Total Counted Neutrophils % (Manual) 82 H (42-75) % Band Neutrophils % 8 H (0-2) % Lymphocytes % (Manual) 3 L (20-50) % Reactive Lymphs % Monocytes % (Manual) 7 (0-10) % Eosinophils % (Manual) Basophils % (Manual) Metamyelocytes % Myelocytes % Promyelocytes % Blast Cells % Plasma Cell % (Manual) Nucleated RBC % Hypersegmented Polys Smudge Cells Toxic Granulation Present Dohle Bodies John Rods Platelet Estimate Normal (NORMAL) Plt Clumps, EDTA Present Large Platelets Giant Platelets RBC Morphology Polychromasia Hypochromasia (manual) Slight Poikilocytosis (manual Basophilic Stippling Anisocytosis (manual) Slight Microcytosis (manual) Macrocytosis (manual) Spherocytes Sickle Cells Target Cells Tear Drop Cells Ovalocytes Slight Stomatocytes Helmet Cells Lindquist-Flanagan Bodies Bety Cells Acanthocytes (Spur) Rouleaux Schistocytes Slight PT 26.1 H (9.8-13.1) Seconds INR 2.3 APTT 39.5 H (25.6-37.1) Seconds Sodium (132-148) mmol/l Potassium (3.6-5.0) MMOL/L Chloride (98-107) mmol/L Carbon Dioxide (22-30) mmol/L Anion Gap (10-20) BUN (9-20) mg/dl Creatinine (0.8-1.5) mg/dl Est GFR ( Amer) Est GFR (Non-Af Amer) Random Glucose (75-110) mg/dL Lactic Acid (0.7-2.1) mmol/L Calcium (8.4-10.2) mg/dL Total Bilirubin (0.2-1.3) mg/dl AST (17-59) U/L ALT (21-72) U/L Alkaline Phosphatase (38-126) U/L Troponin I (0.00-0.120) ng/mL Total Protein (6.3-8.2) G/DL Albumin (3.5-5.0) g/dL Globulin (2.2-3.9) gm/dL Albumin/Globulin Ratio (1.0-2.1) Procalcitonin 4.92 H (0.19-0.49) NG/ML Thyroxine (T4) (5.5-11.0) ug/dl TSH 3rd Generation (0.46-4.68) mIU/ML Ur Random Creatinine mg/dL Ur Random Sodium meq/L Ur Random Potassium mmol/L Digoxin (0.8-2.0) ng/mL Blood Type Antibody Screen BBK History Checked Laboratory Results - last 24 hr 06/10/18 06/10/18 06/10/18 08:45 10:38 12:08 WBC 24.1 H RBC 3.06 L Hgb 9.4 L D Hct 28.6 L MCV 93.5 MCH 30.9 MCHC 33.0 RDW 14.9 H Plt Count 213 MPV 8.8 Neut % (Auto) 91.9 H Lymph % (Auto) 3.0 L [place] % (Auto) 4.9 Eos % (Auto) 0.1 Baso % (Auto) 0.1 Neut # (Auto) 22.2 H Lymph # (Auto) 0.7 L [place] # (Auto) 1.2 H Eos # (Auto) 0.0 Baso # (Auto) 0.0 Total Counted Neutrophils % (Manual) 82 H Band Neutrophils % 8 H Lymphocytes % (Manual) 3 L Reactive Lymphs % Monocytes % (Manual) 7 Eosinophils % (Manual) Basophils % (Manual) Metamyelocytes % Myelocytes % Promyelocytes % Blast Cells % Plasma Cell % (Manual) Nucleated RBC % Hypersegmented Polys Smudge Cells Toxic Granulation Present Dohle Bodies John Rods Platelet Estimate Normal Plt Clumps, EDTA Present Large Platelets Giant Platelets RBC Morphology Polychromasia Hypochromasia (manual) Slight Poikilocytosis (manual Basophilic Stippling Anisocytosis (manual) Slight Microcytosis (manual) Macrocytosis (manual) Spherocytes Sickle Cells Target Cells Tear Drop Cells Ovalocytes Slight Stomatocytes Helmet Cells Lindquist-Flanagan Bodies [place] Cells Acanthocytes (Spur) Rouleaux Schistocytes Slight PT 26.1 H INR 2.3 APTT 39.5 H Sodium Potassium Chloride Carbon Dioxide Anion Gap BUN Creatinine Est GFR ( Amer) Est GFR (Non-Af Amer) Random Glucose Lactic Acid Calcium Total Bilirubin AST ALT Alkaline Phosphatase Troponin I Total Protein Albumin Globulin Albumin/Globulin Ratio Procalcitonin 4.92 H Thyroxine (T4) TSH 3rd Generation Ur Random Creatinine Ur Random Sodium Ur Random Potassium Digoxin Blood Type Antibody Screen BBK History Checked 06/10/18 06/10/18 06/10/18 12:50 17:00 17:45 WBC 22.6 H RBC 3.04 L Hgb 9.3 L Hct 28.5 L MCV 93.7 MCH 30.7 MCHC 32.8 L RDW 14.8 H Plt Count 211 MPV 8.9 Neut % (Auto) 92.4 H Lymph % (Auto) 2.8 L [place] % (Auto) 4.8 Eos % (Auto) 0.0 Baso % (Auto) 0.0 Neut # (Auto) 20.8 H Lymph # (Auto) 0.6 L [place] # (Auto) 1.1 H Eos # (Auto) 0.0 Baso # (Auto) 0.0 Total Counted Neutrophils % (Manual) 83 H Band Neutrophils % 8 H Lymphocytes % (Manual) 5 L Reactive Lymphs % Monocytes % (Manual) 4 Eosinophils % (Manual) Basophils % (Manual) Metamyelocytes % Myelocytes % Promyelocytes % Blast Cells % Plasma Cell % (Manual) Nucleated RBC % Hypersegmented Polys Smudge Cells Toxic Granulation Dohle Bodies John Rods Platelet Estimate Normal Plt Clumps, EDTA Large Platelets Giant Platelets RBC Morphology Polychromasia Slight Hypochromasia (manual) Poikilocytosis (manual Slight Basophilic Stippling Anisocytosis (manual) Moderate Microcytosis (manual) Macrocytosis (manual) Spherocytes Sickle Cells Target Cells Tear Drop Cells Ovalocytes Slight Stomatocytes Helmet Cells Lindquist-Flanagan Bodies Bety Cells Slight Acanthocytes (Spur) Rouleaux Schistocytes Slight PT INR APTT Sodium Potassium Chloride Carbon Dioxide Anion Gap BUN Creatinine Est GFR ( Amer) Est GFR (Non-Af Amer) Random Glucose Lactic Acid Calcium Total Bilirubin AST ALT Alkaline Phosphatase Troponin I 0.0350 Total Protein Albumin Globulin Albumin/Globulin Ratio Procalcitonin Thyroxine (T4) TSH 3rd Generation Ur Random Creatinine Ur Random Sodium 90 Ur Random Potassium 28.2 Digoxin Blood Type Antibody Screen BBK History Checked 06/10/18 06/10/18 06/10/18 17:45 17:45 17:45 WBC RBC Hgb Hct MCV MCH MCHC RDW Plt Count MPV Neut % (Auto) Lymph % (Auto) [place] % (Auto) Eos % (Auto) Baso % (Auto) Neut # (Auto) Lymph # (Auto) [place] # (Auto) Eos # (Auto) Baso # (Auto) Total Counted Neutrophils % (Manual) Band Neutrophils % Lymphocytes % (Manual) Reactive Lymphs % Monocytes % (Manual) Eosinophils % (Manual) Basophils % (Manual) Metamyelocytes % Myelocytes % Promyelocytes % Blast Cells % Plasma Cell % (Manual) Nucleated RBC % Hypersegmented Polys Smudge Cells Toxic Granulation Dohle Bodies John Rods Platelet Estimate Plt Clumps, EDTA Large Platelets Giant Platelets RBC Morphology Polychromasia Hypochromasia (manual) Poikilocytosis (manual Basophilic Stippling Anisocytosis (manual) Microcytosis (manual) Macrocytosis (manual) Spherocytes Sickle Cells Target Cells Tear Drop Cells Ovalocytes Stomatocytes Helmet Cells Lindquist-Flanagan Bodies Bety Cells Acanthocytes (Spur) Rouleaux Schistocytes PT INR APTT Sodium 134 Potassium 4.7 Chloride 106 Carbon Dioxide 17 L Anion Gap 16 BUN 107 H* Creatinine 6.2 H Est GFR ( Amer) 11 Est GFR (Non-Af Amer) 9 Random Glucose 93 Lactic Acid 1.4 Calcium 8.6 Total Bilirubin AST ALT Alkaline Phosphatase Troponin I Total Protein Albumin Globulin Albumin/Globulin Ratio Procalcitonin Thyroxine (T4) 2.81 L TSH 3rd Generation 1.26 Ur Random Creatinine Ur Random Sodium Ur Random Potassium Digoxin Blood Type B POSITIVE Antibody Screen Negative BBK History Checked Patient has bt 06/10/18 06/10/18 06/11/18 17:45 18:00 00:20 WBC RBC Hgb Hct MCV MCH MCHC RDW Plt Count MPV Neut % (Auto) Lymph % (Auto) [place] % (Auto) Eos % (Auto) Baso % (Auto) Neut # (Auto) Lymph # (Auto) [place] # (Auto) Eos # (Auto) Baso # (Auto) Total Counted Neutrophils % (Manual) Band Neutrophils % Lymphocytes % (Manual) Reactive Lymphs % Monocytes % (Manual) Eosinophils % (Manual) Basophils % (Manual) Metamyelocytes % Myelocytes % Promyelocytes % Blast Cells % Plasma Cell % (Manual) Nucleated RBC % Hypersegmented Polys Smudge Cells Toxic Granulation Dohle Bodies John Rods Platelet Estimate Plt Clumps, EDTA Large Platelets Giant Platelets RBC Morphology Polychromasia Hypochromasia (manual) Poikilocytosis (manual Basophilic Stippling Anisocytosis (manual) Microcytosis (manual) Macrocytosis (manual) Spherocytes Sickle Cells Target Cells Tear Drop Cells Ovalocytes Stomatocytes Helmet Cells Lindquist-Flanagan Bodies Bety Cells Acanthocytes (Spur) Rouleaux Schistocytes PT INR APTT Sodium Potassium Chloride Carbon Dioxide Anion Gap BUN Creatinine Est GFR ( Amer) Est GFR (Non-Af Amer) Random Glucose Lactic Acid Calcium Total Bilirubin AST ALT Alkaline Phosphatase Troponin I 0.0300 0.0240 Total Protein Albumin Globulin Albumin/Globulin Ratio Procalcitonin Thyroxine (T4) TSH 3rd Generation Ur Random Creatinine Ur Random Sodium Ur Random Potassium Digoxin 2.1 H Blood Type Antibody Screen BBK History Checked 06/11/18 06/11/18 06/11/18 05:45 05:55 05:55 WBC 22.1 H RBC 3.08 L Hgb 9.5 L Hct 28.8 L MCV 93.4 MCH 30.9 MCHC 33.1 RDW 14.8 H Plt Count 215 MPV 8.7 Neut % (Auto) 90.8 H Lymph % (Auto) 3.5 L [place] % (Auto) 5.6 Eos % (Auto) 0.0 Baso % (Auto) 0.1 Neut # (Auto) 20.0 H Lymph # (Auto) 0.8 L [place] # (Auto) 1.2 H Eos # (Auto) 0.0 Baso # (Auto) 0.0 Total Counted Cancelled Neutrophils % (Manual) Cancelled Band Neutrophils % Cancelled Lymphocytes % (Manual) Cancelled Reactive Lymphs % Cancelled Monocytes % (Manual) Cancelled Eosinophils % (Manual) Cancelled Basophils % (Manual) Cancelled Metamyelocytes % Cancelled Myelocytes % Cancelled Promyelocytes % Cancelled Blast Cells % Cancelled Plasma Cell % (Manual) Cancelled Nucleated RBC % Cancelled Hypersegmented Polys Cancelled Smudge Cells Cancelled Toxic Granulation Cancelled Dohle Bodies Cancelled John Rods Cancelled Platelet Estimate Cancelled Plt Clumps, EDTA Cancelled Large Platelets Cancelled Giant Platelets Cancelled RBC Morphology Cancelled Polychromasia Cancelled Hypochromasia (manual) Cancelled Poikilocytosis (manual Cancelled Basophilic Stippling Cancelled Anisocytosis (manual) Cancelled Microcytosis (manual) Cancelled Macrocytosis (manual) Cancelled Spherocytes Cancelled Sickle Cells Cancelled Target Cells Cancelled Tear Drop Cells Cancelled Ovalocytes Cancelled Stomatocytes Cancelled Helmet Cells Cancelled Lindquist-Flanagan Bodies Cancelled [place] Cells Cancelled Acanthocytes (Spur) Cancelled Rouleaux Cancelled Schistocytes Cancelled PT INR APTT Sodium 139 Potassium 3.9 Chloride 110 H Carbon Dioxide 18 L Anion Gap 15 BUN 98 H Creatinine 4.5 H Est GFR ( Amer) 15 Est GFR (Non-Af Amer) 13 Random Glucose 93 Lactic Acid Calcium 8.9 Total Bilirubin 0.3 AST 22 ALT 21 D Alkaline Phosphatase 66 Troponin I Total Protein 5.4 L Albumin 2.4 L Globulin 3.0 Albumin/Globulin Ratio 0.8 L Procalcitonin Thyroxine (T4) TSH 3rd Generation Ur Random Creatinine 75.7 Ur Random Sodium Ur Random Potassium Digoxin Blood Type Antibody Screen BBK History Checked Radiology Impressions: Radiology Impressions Chest X-Ray 06/10/18 05:42 IMPRESSION: Mild cardiomegaly. Permanent pacemaker. No infiltrate. Chest X-Ray 06/11/18 06:00 IMPRESSION: Stable mild cardiomegaly. No interval active pulmonary disease. Pacemaker reiterated. Critical Care Progress Note - Nutrition Nutrition: Nutrition Category Date Time Status Dysphagia/Modified Consistency Diet [DIET] Diets 06/10/18 Dinner Active <Philippe Scanlon - Last Filed: 06/11/18 15:58> Assessment/Plan - Assessment and Plan (Free Text) Plan: Attestation: Patient seen and examined at the bedside with Resident Dr. Althea Washington; and I agree with her outline of plans and management documented above as discussed on AM rounds; reflecting my review of all applicable clinical data, and participation in the care of the patient throughout the day in ICU; today, June 11, 2018.
--- NOTE | 2018-06-11 09:40 | CP.PCM.CON ---
History of Present Illness - History of Present Illness History of Present Illness: urology consult dictated. Imp gross hematuria renal failure, will order renal ultrasound to eval for hydronephrosis Past Patient History - Past Medical History & Family History Past Medical History?: Yes - Past Social History Smoking Status: Never Smoked - CARDIAC Hx Atrial Fibrillation: Yes Hx Cardia Arrhythmia: Yes (bradycardia) Hx Congestive Heart Failure: Yes Hx Hypercholesterolemia: Yes Hx Hypertension: Yes Hx Pacemaker: Yes - PULMONARY Hx Respiratory Disorders: No - NEUROLOGICAL Hx Neurological Disorder: No - HEENT Hx HEENT Problems: No - RENAL Hx Chronic Kidney Disease: No - ENDOCRINE/METABOLIC Hx Hypothyroidism: Yes - HEMATOLOGICAL/ONCOLOGICAL Hx AIDS: No Hx Human Immunodeficiency Virus (HIV): No - INTEGUMENTARY Hx Dermatological Problems: No Hx Cellulitis: Yes - MUSCULOSKELETAL/RHEUMATOLOGICAL Hx Musculoskeletal Disorders: Yes Hx Falls: Yes - GASTROINTESTINAL Hx Gastrointestinal Disorders: No - GENITOURINARY/GYNECOLOGICAL Hx Hematuria: Yes Hx Urinary Tract Infection: Yes - PSYCHIATRIC Hx Psychophysiologic Disorder: No Hx Emotional Abuse: No Hx Physical Abuse: No Hx Substance Use: No - SURGICAL HISTORY Hx Tonsillectomy: Yes - ANESTHESIA Hx Anesthesia: Yes Hx Anesthesia Reactions: No Hx Malignant Hyperthermia: No Meds Allergies/Adverse Reactions: Allergies Allergy/AdvReac Type Severity Reaction Status Date / Time No Known Allergies Allergy Unknown RASH Verified 06/09/18 23:08 - Medications Medications: Current Medications Albuterol/Ipratropium (Duoneb 3 Mg/0.5 Mg (3 Ml) Ud) 3 ml INH RTID [facility] Last Admin: 06/11/18 07:15 Dose: 3 ml Clopidogrel Bisulfate (Plavix) 75 mg PO DAILY [facility] Last Admin: 06/11/18 08:26 Dose: 75 mg Sodium Chloride (Sodium Chloride 0.9%) 1,000 mls @ 150 mls/hr IV .[id number] [facility] Stop: 06/11/18 12:26 Last Admin: 06/10/18 18:50 Dose: 150 mls/hr Norepinephrine Bitartrate 4 mg (/ Dextrose) 254 mls @ 9.53 mls/hr IV .Q24H [facility]; Protocol Last Admin: 06/10/18 18:47 Dose: 2.5 mcg/min, 9.53 mls/hr Sodium Chloride (Sodium Chloride 0.9%) 1,000 mls @ 1,000 mls/hr IV .Q1H [facility] Stop: 06/11/18 15:03 Last Admin: 06/10/18 18:50 Dose: 1,000 mls/hr Aztreonam 500 mg/ Sodium (Chloride) 50 mls @ 50 mls/hr IVPB Q8H [facility]; Protocol Last Admin: 06/11/18 02:41 Dose: 50 mls/hr Sodium Chloride (Sodium Chloride 0.9%) 1,000 mls @ 75 mls/hr IV .[id number] [facility] Stop: 06/11/18 20:59 Last Admin: 06/10/18 21:22 Dose: 75 mls/hr Vancomycin HCl 1 gm/ Sodium (Chloride) 250 mls @ 166.667 mls/hr IVPB ONCE ONE; Protocol Stop: 06/11/18 10:29 Results - Vital Signs Recent Vital Signs: Last Vital Signs Temp 98.1 F 06/11/18 08:00 Pulse 63 06/11/18 08:00 Resp 23 06/11/18 08:00 BP 119/53 L 06/11/18 08:00 Pulse Ox 97 06/11/18 08:00 - Labs Result Diagrams: 06/11/18 05:55 06/11/18 05:55 Labs: Laboratory Results - last 24 hr 06/10/18 06/10/18 06/10/18 08:45 10:38 12:08 WBC 24.1 H RBC 3.06 L Hgb 9.4 L D Hct 28.6 L MCV 93.5 MCH 30.9 MCHC 33.0 RDW 14.9 H Plt Count 213 MPV 8.8 Neut % (Auto) 91.9 H Lymph % (Auto) 3.0 L [place] % (Auto) 4.9 Eos % (Auto) 0.1 Baso % (Auto) 0.1 Neut # (Auto) 22.2 H Lymph # (Auto) 0.7 L [place] # (Auto) 1.2 H Eos # (Auto) 0.0 Baso # (Auto) 0.0 Total Counted Neutrophils % (Manual) 82 H Band Neutrophils % 8 H Lymphocytes % (Manual) 3 L Reactive Lymphs % Monocytes % (Manual) 7 Eosinophils % (Manual) Basophils % (Manual) Metamyelocytes % Myelocytes % Promyelocytes % Blast Cells % Plasma Cell % (Manual) Nucleated RBC % Hypersegmented Polys Smudge Cells Toxic Granulation Present Dohle Bodies John Rods Platelet Estimate Normal Plt Clumps, EDTA Present Large Platelets Giant Platelets RBC Morphology Polychromasia Hypochromasia (manual) Slight Poikilocytosis (manual Basophilic Stippling Anisocytosis (manual) Slight Microcytosis (manual) Macrocytosis (manual) Spherocytes Sickle Cells Target Cells Tear Drop Cells Ovalocytes Slight Stomatocytes Helmet Cells [place] Bodies Bety Cells Acanthocytes (Spur) Rouleaux Schistocytes Slight PT 26.1 H INR 2.3 APTT 39.5 H Sodium Potassium Chloride Carbon Dioxide Anion Gap BUN Creatinine Est GFR ( Amer) Est GFR (Non-Af Amer) Random Glucose Lactic Acid Calcium Total Bilirubin AST ALT Alkaline Phosphatase Troponin I Total Protein Albumin Globulin Albumin/Globulin Ratio Procalcitonin 4.92 H Thyroxine (T4) TSH 3rd Generation Ur Random Creatinine Ur Random Sodium Ur Random Potassium Digoxin Blood Type Antibody Screen BBK History Checked 06/10/18 06/10/18 06/10/18 12:50 17:00 17:45 WBC 22.6 H RBC 3.04 L Hgb 9.3 L Hct 28.5 L MCV 93.7 MCH 30.7 MCHC 32.8 L RDW 14.8 H Plt Count 211 MPV 8.9 Neut % (Auto) 92.4 H Lymph % (Auto) 2.8 L [place] % (Auto) 4.8 Eos % (Auto) 0.0 Baso % (Auto) 0.0 Neut # (Auto) 20.8 H Lymph # (Auto) 0.6 L [place] # (Auto) 1.1 H Eos # (Auto) 0.0 Baso # (Auto) 0.0 Total Counted Neutrophils % (Manual) 83 H Band Neutrophils % 8 H Lymphocytes % (Manual) 5 L Reactive Lymphs % Monocytes % (Manual) 4 Eosinophils % (Manual) Basophils % (Manual) Metamyelocytes % Myelocytes % Promyelocytes % Blast Cells % Plasma Cell % (Manual) Nucleated RBC % Hypersegmented Polys Smudge Cells Toxic Granulation Dohle Bodies John Rods Platelet Estimate Normal Plt Clumps, EDTA Large Platelets Giant Platelets RBC Morphology Polychromasia Slight Hypochromasia (manual) Poikilocytosis (manual Slight Basophilic Stippling Anisocytosis (manual) Moderate Microcytosis (manual) Macrocytosis (manual) Spherocytes Sickle Cells Target Cells Tear Drop Cells Ovalocytes Slight Stomatocytes Helmet Cells [place] Bodies Bety Cells Slight Acanthocytes (Spur) Rouleaux Schistocytes Slight PT INR APTT Sodium Potassium Chloride Carbon Dioxide Anion Gap BUN Creatinine Est GFR ( Amer) Est GFR (Non-Af Amer) Random Glucose Lactic Acid Calcium Total Bilirubin AST ALT Alkaline Phosphatase Troponin I 0.0350 Total Protein Albumin Globulin Albumin/Globulin Ratio Procalcitonin Thyroxine (T4) TSH 3rd Generation Ur Random Creatinine Ur Random Sodium 90 Ur Random Potassium 28.2 Digoxin Blood Type Antibody Screen BBK History Checked 06/10/18 06/10/18 06/10/18 17:45 17:45 17:45 WBC RBC Hgb Hct MCV MCH MCHC RDW Plt Count MPV Neut % (Auto) Lymph % (Auto) [place] % (Auto) Eos % (Auto) Baso % (Auto) Neut # (Auto) Lymph # (Auto) [place] # (Auto) Eos # (Auto) Baso # (Auto) Total Counted Neutrophils % (Manual) Band Neutrophils % Lymphocytes % (Manual) Reactive Lymphs % Monocytes % (Manual) Eosinophils % (Manual) Basophils % (Manual) Metamyelocytes % Myelocytes % Promyelocytes % Blast Cells % Plasma Cell % (Manual) Nucleated RBC % Hypersegmented Polys Smudge Cells Toxic Granulation Dohle Bodies John Rods Platelet Estimate Plt Clumps, EDTA Large Platelets Giant Platelets RBC Morphology Polychromasia Hypochromasia (manual) Poikilocytosis (manual Basophilic Stippling Anisocytosis (manual) Microcytosis (manual) Macrocytosis (manual) Spherocytes Sickle Cells Target Cells Tear Drop Cells Ovalocytes Stomatocytes Helmet Cells [place] Bodies [place] Cells Acanthocytes (Spur) Rouleaux Schistocytes PT INR APTT Sodium 134 Potassium 4.7 Chloride 106 Carbon Dioxide 17 L Anion Gap 16 BUN 107 H* Creatinine 6.2 H Est GFR ( Amer) 11 Est GFR (Non-Af Amer) 9 Random Glucose 93 Lactic Acid 1.4 Calcium 8.6 Total Bilirubin AST ALT Alkaline Phosphatase Troponin I Total Protein Albumin Globulin Albumin/Globulin Ratio Procalcitonin Thyroxine (T4) 2.81 L TSH 3rd Generation 1.26 Ur Random Creatinine Ur Random Sodium Ur Random Potassium Digoxin Blood Type B POSITIVE Antibody Screen Negative BBK History Checked Patient has bt 06/10/18 06/10/18 06/11/18 17:45 18:00 00:20 WBC RBC Hgb Hct MCV MCH MCHC RDW Plt Count MPV Neut % (Auto) Lymph % (Auto) [place] % (Auto) Eos % (Auto) Baso % (Auto) Neut # (Auto) Lymph # (Auto) [place] # (Auto) Eos # (Auto) Baso # (Auto) Total Counted Neutrophils % (Manual) Band Neutrophils % Lymphocytes % (Manual) Reactive Lymphs % Monocytes % (Manual) Eosinophils % (Manual) Basophils % (Manual) Metamyelocytes % Myelocytes % Promyelocytes % Blast Cells % Plasma Cell % (Manual) Nucleated RBC % Hypersegmented Polys Smudge Cells Toxic Granulation Dohle Bodies John Rods Platelet Estimate Plt Clumps, EDTA Large Platelets Giant Platelets RBC Morphology Polychromasia Hypochromasia (manual) Poikilocytosis (manual Basophilic Stippling Anisocytosis (manual) Microcytosis (manual) Macrocytosis (manual) Spherocytes Sickle Cells Target Cells Tear Drop Cells Ovalocytes Stomatocytes Helmet Cells [place] Bodies Bety Cells Acanthocytes (Spur) Rouleaux Schistocytes PT INR APTT Sodium Potassium Chloride Carbon Dioxide Anion Gap BUN Creatinine Est GFR ( Amer) Est GFR (Non-Af Amer) Random Glucose Lactic Acid Calcium Total Bilirubin AST ALT Alkaline Phosphatase Troponin I 0.0300 0.0240 Total Protein Albumin Globulin Albumin/Globulin Ratio Procalcitonin Thyroxine (T4) TSH 3rd Generation Ur Random Creatinine Ur Random Sodium Ur Random Potassium Digoxin 2.1 H Blood Type Antibody Screen BBK History Checked 06/11/18 06/11/18 06/11/18 05:45 05:55 05:55 WBC 22.1 H RBC 3.08 L Hgb 9.5 L Hct 28.8 L MCV 93.4 MCH 30.9 MCHC 33.1 RDW 14.8 H Plt Count 215 MPV 8.7 Neut % (Auto) 90.8 H Lymph % (Auto) 3.5 L [place] % (Auto) 5.6 Eos % (Auto) 0.0 Baso % (Auto) 0.1 Neut # (Auto) 20.0 H Lymph # (Auto) 0.8 L [place] # (Auto) 1.2 H Eos # (Auto) 0.0 Baso # (Auto) 0.0 Total Counted Cancelled Neutrophils % (Manual) Cancelled Band Neutrophils % Cancelled Lymphocytes % (Manual) Cancelled Reactive Lymphs % Cancelled Monocytes % (Manual) Cancelled Eosinophils % (Manual) Cancelled Basophils % (Manual) Cancelled Metamyelocytes % Cancelled Myelocytes % Cancelled Promyelocytes % Cancelled Blast Cells % Cancelled Plasma Cell % (Manual) Cancelled Nucleated RBC % Cancelled Hypersegmented Polys Cancelled Smudge Cells Cancelled Toxic Granulation Cancelled Dohle Bodies Cancelled John Rods Cancelled Platelet Estimate Cancelled Plt Clumps, EDTA Cancelled Large Platelets Cancelled Giant Platelets Cancelled RBC Morphology Cancelled Polychromasia Cancelled Hypochromasia (manual) Cancelled Poikilocytosis (manual Cancelled Basophilic Stippling Cancelled Anisocytosis (manual) Cancelled Microcytosis (manual) Cancelled Macrocytosis (manual) Cancelled Spherocytes Cancelled Sickle Cells Cancelled Target Cells Cancelled Tear Drop Cells Cancelled Ovalocytes Cancelled Stomatocytes Cancelled Helmet Cells Cancelled [place] Bodies Cancelled [place] Cells Cancelled Acanthocytes (Spur) Cancelled Rouleaux Cancelled Schistocytes Cancelled PT INR APTT Sodium 139 Potassium 3.9 Chloride 110 H Carbon Dioxide 18 L Anion Gap 15 BUN 98 H Creatinine 4.5 H Est GFR ( Amer) 15 Est GFR (Non-Af Amer) 13 Random Glucose 93 Lactic Acid Calcium 8.9 Total Bilirubin 0.3 AST 22 ALT 21 D Alkaline Phosphatase 66 Troponin I Total Protein 5.4 L Albumin 2.4 L Globulin 3.0 Albumin/Globulin Ratio 0.8 L Procalcitonin Thyroxine (T4) TSH 3rd Generation Ur Random Creatinine 75.7 Ur Random Sodium Ur Random Potassium Digoxin Blood Type Antibody Screen BBK History Checked
[2018-06-11] MEDS: Lactated Ringer's 1,000 ML IV SCH ×2 (10:59→19:30)
--- NOTE | 2018-06-11 11:12 | US ---
Date of service: 06/11/2018 PROCEDURE: Ultrasound of the Kidneys HISTORY: renal failure, hematuria COMPARISON: None available. TECHNIQUE: Sonogram of the kidneys. FINDINGS: RIGHT KIDNEY: Measures: 11.4 x 6.2 x 5.8 cm. Normal in size and contour. Overall echogenicity is limited evaluation due to body habitus. Prior hydronephrosis has resolved. No definite stone, solid mass lesion or hydronephrosis visualized. LEFT KIDNEY: Measures: 10.1 x 6.2 x 6.2 cm. Normal in size and contour. Parenchymal echogenicity is limited evaluation due to body habitus. Limited residual left hydronephrosis is questioned though pelvocaliceal system is clearly improved in the interval from prior hydronephrotic pattern.. No definite stone, solid mass lesion or hydronephrosis visualized. OTHER FINDINGS: Urinary bladder appears collapsed by Dong catheter and is limited in evaluation. IMPRESSION: 1. Limited residual left hydronephrosis question. 2. Prior right hydronephrosis appears to have resolved. 3. Bilateral renal parenchymal evaluation somewhat limited by body habitus but appears grossly stable.
--- NOTE | 2018-06-11 14:38 | CP.PCM.PN ---
Subjective - Date & Time of Evaluation Date of Evaluation: 06/11/18 Time of Evaluation: 14:39 - Subjective Subjective: Patient awake and conscious Not in acute distress sitting up in bed. Vital signs noted to be stable. Patient does not appear to be in pain. Objective - Vital Signs/Intake and Output Vital Signs (last 24 hours): Temp Pulse Resp BP Pulse Ox 98 F 60 24 124/58 L 97 06/11/18 12:00 06/11/18 14:00 06/11/18 12:00 06/11/18 14:00 06/11/18 12:00 Intake and Output: 06/11/18 06/11/18 06:59 18:59 Intake Total 1481 245 Output Total 1800 Balance -319 245 - Medications Medications: Current Medications Albuterol/Ipratropium (Duoneb 3 Mg/0.5 Mg (3 Ml) Ud) 3 ml INH RTID [facility] Last Admin: 06/11/18 14:04 Dose: 3 ml Clopidogrel Bisulfate (Plavix) 75 mg PO DAILY [facility] Last Admin: 06/11/18 08:26 Dose: 75 mg Norepinephrine Bitartrate 4 mg (/ Dextrose) 254 mls @ 9.53 mls/hr IV .Q24H [facility]; Protocol Last Admin: 06/10/18 18:47 Dose: 2.5 mcg/min, 9.53 mls/hr Sodium Chloride (Sodium Chloride 0.9%) 1,000 mls @ 1,000 mls/hr IV .Q1H [facility] Stop: 06/11/18 15:03 Last Admin: 06/10/18 18:50 Dose: 1,000 mls/hr Aztreonam 500 mg/ Sodium (Chloride) 50 mls @ 50 mls/hr IVPB Q8H [facility]; Protocol Last Admin: 06/11/18 10:53 Dose: 50 mls/hr Lactated Ringer's (Lactated Ringer's) 1,000 mls @ 75 mls/hr IV .[id number] [facility] Last Admin: 06/11/18 10:59 Dose: 75 mls/hr Levothyroxine Sodium (Synthroid) 225 mcg PO DAILY@0630 [facility] - Labs Labs: 06/11/18 05:55 06/11/18 05:55 PT 26.1 Seconds (9.8-13.1) H 06/10/18 12:08 INR 2.3 06/10/18 12:08 APTT 39.5 Seconds (25.6-37.1) H 06/10/18 12:08 - Constitutional Appears: No Acute Distress - Eye Exam Eye Exam: Conjunctival injection - ENT Exam ENT Exam: Mucous Membranes Moist - Neck Exam Neck Exam: absent: Lymphadenopathy - Respiratory Exam Respiratory Exam: Rhonchi, NORMAL BREATHING PATTERN. absent: Chest Wall Tenderness - Cardiovascular Exam Cardiovascular Exam: absent: Gallop, JVD, Rubs - GI/Abdominal Exam GI & Abdominal Exam: Soft - Extremities Exam Extremities Exam: absent: Calf Tenderness - Back Exam Back Exam: absent: CVA tenderness (L), CVA tenderness (R) - Neurological Exam Neurological Exam: Alert - Psychiatric Exam Psychiatric exam: Normal Affect - Skin Skin Exam: absent: Cyanosis Assessment and Plan (1) Hyperkalemia Status: Acute (2) UTI (urinary tract infection) Status: Acute (3) NICOLLE (acute kidney injury) Assessment & Plan: Acute kidney injury superimposed on chronic kidney disease and Obstructive uropathy causing acute kidney injury and worsening kidney function on admission Serum creatinine and BUN improving in the last 24hours Gross hematuria persisted Leukocytosis Urine tract infection History of coronary artery disease with previous stenting h/o chronic AF Recommendation Patient responded to hydration putting Dong catheter and is making good urine and kidney function improving. Antibiotics as per primary team considering GFR Serum phosphorus and PTH pending Continue monitoring Status: Acute (4) CAD (coronary artery disease) Status: Acute
[2018-06-11 18:33] LABS: HEMOGLOBIN 9.8 g/dL (12.0-18.0); LYMPH # 0.8 K/uL (1.0-4.3); MEAN CORPUSCULAR HEMOGLOBIN 30.8 pg (27.0-31.0); MEAN CORPUSCULAR HGB CONC 33.1 g/dL (33.0-37.0); MEAN PLATELET VOLUME 8.6 fl (7.2-11.7); MONO % 4.7 % (0.0-10.0); NEUT # 18.9 K/uL (1.8-7.0); NEUT % 91.3 % (50.0-75.0); PLATELET COUNT 224 K/uL (130-400); RBC 3.17 Mil/uL (4.40-5.90); RED CELL DISTRIBUTION WIDTH 14.8 % (11.5-14.5); WHITE BLOOD COUNT 20.7 K/uL (4.8-10.8)
--- NOTE | 2018-06-11 19:21 | CP.PCM.PN ---
Subjective - Date & Time of Evaluation Date of Evaluation: 06/11/18 Time of Evaluation: 19:00 - Subjective Subjective: more awake today. no chest pain or dyspnea Objective - Vital Signs/Intake and Output Vital Signs (last 24 hours): Temp Pulse Resp BP Pulse Ox 98.4 F 60 15 125/59 L 98 06/11/18 16:00 06/11/18 18:00 06/11/18 16:24 06/11/18 18:00 06/11/18 16:24 Intake and Output: 06/11/18 06/12/18 18:59 06:59 Intake Total 1995 Output Total 1400 Balance 595 - Medications Medications: Current Medications Albuterol/Ipratropium (Duoneb 3 Mg/0.5 Mg (3 Ml) Ud) 3 ml INH RTID [facility] Last Admin: 06/11/18 19:11 Dose: 3 ml Clopidogrel Bisulfate (Plavix) 75 mg PO DAILY [facility] Last Admin: 06/11/18 08:26 Dose: 75 mg Aztreonam 500 mg/ Sodium (Chloride) 50 mls @ 50 mls/hr IVPB Q8H [facility]; Protocol Last Admin: 06/11/18 18:08 Dose: 50 mls/hr Lactated Ringer's (Lactated Ringer's) 1,000 mls @ 75 mls/hr IV .[id number] [facility] Last Admin: 06/11/18 10:59 Dose: 75 mls/hr Norepinephrine Bitartrate 4 mg (/ Dextrose) 254 mls @ 9.53 mls/hr IV .Q24H [facility]; Protocol Last Admin: 06/11/18 17:33 Dose: 2.5 mcg/min, 9.53 mls/hr Levothyroxine Sodium (Synthroid) 225 mcg PO DAILY@0630 [facility] - Labs Labs: 06/11/18 18:20 06/11/18 05:55 PT 26.1 Seconds (9.8-13.1) H 06/10/18 12:08 INR 2.3 06/10/18 12:08 APTT 39.5 Seconds (25.6-37.1) H 06/10/18 12:08 - Constitutional Appears: Chronically Ill - Head Exam Head Exam: NORMAL INSPECTION - Eye Exam Eye Exam: Normal appearance - ENT Exam ENT Exam: Mucous Membranes Moist - Neck Exam Neck Exam: Full ROM - Respiratory Exam Respiratory Exam: Decreased Breath Sounds - Cardiovascular Exam Cardiovascular Exam: REGULAR RHYTHM - GI/Abdominal Exam GI & Abdominal Exam: Normal Bowel Sounds - Rectal Exam Rectal Exam: Deferred - Extremities Exam Extremities Exam: Pedal Edema - Back Exam Back Exam: NORMAL INSPECTION - Neurological Exam Neurological Exam: Alert - Psychiatric Exam Psychiatric exam: Normal Affect - Skin Skin Exam: Normal Color Assessment and Plan (1) Atrial fibrillation Assessment & Plan: paced rhytm Status: Chronic (2) Aortic stenosis Assessment & Plan: mild. no surgical intervention is necessary Status: Acute (3) CAD (coronary artery disease) Assessment & Plan: on Plavix Status: Acute
[2018-06-11 19:26] LABS: BANDS 8 % (0-2); LYMPHOCYTE 6 % (20-50); MONOCYTE 5 % (0-10); NEUTROPHIL 81 % (42-75); PLATELET ESTIMATE NORMAL (NORMAL); TOTAL CELLS COUNTED 100
[2018-06-11 19:28] LABS: ANISOCYTOSIS SLIGHT; HYPOCHROMIC SLIGHT; POIKILOCYTOSIS SLIGHT; SMUDGE CELLS PRESENT
--- NOTE | 2018-06-11 19:45 | CON ---
DATE: 06/10/2018 HISTORY OF PRESENT ILLNESS: This is an 82-year-old gentleman who I was called to see in the intensive care unit. The patient urologically has significant gross hematuria and the consult is for this evaluation. He has a Dong catheter in place. He does have history of AFib and he was on some anticoagulant therapy prior to his admission. The patient is in no acute distress from the catheter. Laboratory evaluation suggest white blood cell count of 18,000, hemoglobin and hematocrit of 11.9 and 36.6. The chemistry evaluation is impressive in that he has a BUN of 107 and a creatinine of 6.2 on admission. The patient has no renal workup at this time. He does have blood cultures drawn that shows there to be gram-negative rods in two sets of blood cultures. There was no urine culture performed prior to the initiation of antibiotics and at this time he is on vancomycin already so I am not sure that a culture at this time would be indicative on the urine side. PHYSICAL EXAMINATION: GENERAL: Again the urine is completely bloody in the catheter. ABDOMEN: Soft. I did tell the patient that we will be monitoring this with IV hydration and antibiotics and accordingly when he is stable, if the gross hematuria still persist, we will probably do a cystoscopic evaluation of the bladder. At this time I would also probably recommend to do a renal ultrasound to see if there is any obstructive uropathy occurring that might be the cause of renal failure. Елена Marquez MD
[2018-06-12 05:21] LABS: BASO % 0.1 % (0.0-2.0); EOS % 0.1 % (0.0-4.0); HEMOGLOBIN 9.3 g/dL (12.0-18.0); LYMPH # 0.9 K/uL (1.0-4.3); LYMPH % 4.8 % (20.0-40.0); MEAN CELL VOLUME 92.8 fl (80.0-94.0); MEAN CORPUSCULAR HEMOGLOBIN 30.9 pg (27.0-31.0); MEAN CORPUSCULAR HGB CONC 33.3 g/dL (33.0-37.0); MEAN PLATELET VOLUME 8.6 fl (7.2-11.7); MONO # 1.1 K/uL (0.0-0.8); MONO % 5.6 % (0.0-10.0); NEUT # 16.8 K/uL (1.8-7.0); NEUT % 89.4 % (50.0-75.0); RED CELL DISTRIBUTION WIDTH 14.5 % (11.5-14.5); WHITE BLOOD COUNT 18.8 K/uL (4.8-10.8)
[2018-06-12] MEDS: Levothyroxine 75 MCG TAB PO SCH (05:33)
[2018-06-12 05:44] LABS: ALB/GLOB RATIO 0.8 (1.0-2.1); ALBUMIN 2.3 g/dL (3.5-5.0); CALCIUM 8.6 mg/dL (8.4-10.2)
[2018-06-12] MEDS ORDERED: Potassium Chloride 20 mEq/15 ml LIQ UD PO ONE ×2 (06:05)
[2018-06-12] MEDS: Albuterol-Ipratrop 3 mg / 0.5 (3 ml) UD INH SCH ×3 (07:58→20:04)
--- NOTE | 2018-06-12 17:35 | CP.PCM.PN ---
Subjective - Date & Time of Evaluation Date of Evaluation: 06/12/18 Time of Evaluation: 17:30 - Subjective Subjective: i d consult note hpatient well known to me have reviewed EMR urine culture positive for e,coli c excellent MICs for meropenem which has been started in adjusted renal dose cntinue aztreonam(have adjusted dose)for combined gram negative coverage considering clinical signs and leukocytosis Objective - Vital Signs/Intake and Output Vital Signs (last 24 hours): Temp Pulse Resp BP Pulse Ox 98.2 F 60 21 128/58 L 98 06/12/18 08:00 06/12/18 16:41 06/12/18 16:41 06/12/18 16:41 06/12/18 16:41 Intake and Output: 06/12/18 06/12/18 06:59 18:59 Intake Total 1050 1150 Output Total 1100 Balance -50 1150 - Medications Medications: Current Medications Albuterol/Ipratropium (Duoneb 3 Mg/0.5 Mg (3 Ml) Ud) 3 ml INH RTID [facility] Last Admin: 06/12/18 14:08 Dose: 3 ml Clopidogrel Bisulfate (Plavix) 75 mg PO DAILY [facility] Last Admin: 06/12/18 08:16 Dose: 75 mg Aztreonam 500 mg/ Sodium (Chloride) 50 mls @ 50 mls/hr IVPB Q8H [facility]; Protocol Last Admin: 06/12/18 11:50 Dose: 50 mls/hr Lactated Ringer's (Lactated Ringer's) 1,000 mls @ 75 mls/hr IV .[id number] [facility] Last Admin: 06/11/18 19:30 Dose: 75 mls/hr Meropenem 500 mg/ Sodium (Chloride) 100 mls @ 100 mls/hr IVPB Q12H [facility]; Protocol Levothyroxine Sodium (Synthroid) 225 mcg PO DAILY@0630 [facility] Last Admin: 06/12/18 05:33 Dose: 225 mcg - Labs Labs: 06/12/18 04:48 06/12/18 04:48 PT 26.1 Seconds (9.8-13.1) H 06/10/18 12:08 INR 2.3 06/10/18 12:08 APTT 39.5 Seconds (25.6-37.1) H 06/10/18 12:08
[2018-06-12] MEDS: Meropenem 500 MG in Sodium Chloride 0.9% 100 ML IVPB SCH (19:55)
--- NOTE | 2018-06-12 21:18 | PN ---
DATE: 06/12/2018 LOCATION: The patient in ICU, bed 421. TIME SPENT: 35 minutes. SUBJECTIVE: The patient is seen and evaluated at the bedside. Past medical, surgical, family and social history reviewed. An 82-year-old male assisted resident with history significant for chronic atrial fibrillation, status post permanent pacemaker insertion, mild aortic valve stenosis, coronary artery disease, on Plavix, admitted with suprapubic pain and hematuria. Noted to have gram-negative bacteremia, on broad-spectrum antibiotics. Overnight, improved urine output, still with hematuria, afebrile. Telemetry, atrial fibrillation, rate controlled, less dyspneic, saturating 97%. PHYSICAL EXAMINATION: GENERAL: This morning, alert, awake, follows commands. VITAL SIGNS: Temperature 98.2, heart rate of 60, blood pressure 119/57, respiratory rate 15, saturation 98%. Oxygen supplement 2 liters nasal cannula. Intake 3045, output 2500, positive balance 545. Urine output 2500 mL. Weight 196 pounds. HEAD, EYES, EARS, NOSE AND THROAT: Pupils are reactive. Conjunctivae pink. Sclerae anicteric. NECK: Supple. Trachea central. CHEST: Bilateral breath sounds. HEART: Rhythm irregular. No audible murmur. ABDOMEN: Bowel sounds present. Soft. GENITOURINARY: Dong in place. No lesions on the surface. Bag draining dark urine. EXTREMITIES: Upper extremity, no edema. Lower extremity, trace edema. SKIN: Without rash. Warm to touch. CURRENT MEDICATIONS: Include albuterol, Atrovent inhalation 3 mL via nebulizer three times daily, aztreonam 500 mg IV every 8 hours, Plavix 75 mg daily, Ringer's lactate 75 mL/hour, Synthroid 225 mcg daily, Levophed at 2.5 mcg/minute. LABORATORY DATA: WBC 18.8, hemoglobin 9.3, hematocrit 27.9, platelet count 194, neutrophils 89.4, lymphocytes 4.8, PT 26.1, INR 2.3, PTT 29.5, lactic 2.4. SMA-7: Sodium 145, potassium 3.2, chloride 112, CO2 of 23, blood urea nitrogen 77, creatinine 2.2. Lactic acid 1.4, calcium 8.6, AST 39, ALT 22, alkaline phosphatase 88, total protein 5.2, albumin 2.3. PT3 of 1.1. TSH 1.26. Urinalysis: Rbc 7496, microscopic wbc 930. Digoxin level 2.1. Microbiology: Urine culture, positive for E. coli. Blood culture, positive for E. coli. Chest x-ray on 06/11/2018, mild cardiomegaly. No pulmonary vascular congestion. Permanent pacemaker in place. Ultrasound of the abdomen: Mild hydronephrosis, left kidney. Electrocardiogram on 06/10/2018, ventricular paced rhythm. IMPRESSION AND PLAN: 1. Neurology: Septic metabolic encephalopathy, resolving. 2. Pulmonary: No acute issues noted. 3. Cardiac: History of chronic atrial fibrillation. Rate controlled. Mild aortic stenosis. Hemodynamically not compromised. Chronic atrial fibrillation. Rate controlled. Low normal systolic blood pressure, on Levophed, improved from before. IV hydration at 75 mL/hour. 4. Infectious Disease: Gram-negative bacteremia, source urine, Escherichia coli positive, sensitive to aztreonam and vancomycin. Vancomycin on hold, secondary to high trough level. 5. Hematology: Leukocytosis secondary to gram-negative bacteremia urinary tract infection. Hemoglobin and hematocrit are stable. Normal platelets count. Mild coagulopathy secondary to sepsis. 6. Renal: Hypokalemia. Improving renal function. Current BUN at 77, improved from 107. Creatinine 2.2, reduced from 6.2. Closely monitor further improving renal function. 7. Gastrointestinal: No acute issues. Continue feeding as tolerated. Keep head of bed 30 degrees up. Dong in place. Right femoral catheter line in place. We will change to peripherally inserted central catheter line. Henrry Baires MD
--- NOTE | 2018-06-12 22:52 | CP.PCM.PN ---
Subjective - Date & Time of Evaluation Date of Evaluation: 06/12/18 Time of Evaluation: 22:49 - Subjective Subjective: no events overnight labs and vitals reviewed heent normal op moist no jvd s1s2 present no resp dstress abd soft nt skin normal cooeprative ao times 3 NICOLLE/CKD/obstructive uropathy/hematuria /uti/hypotension /hx of a fib cr improving monitor UOP lytes reviewed On board abx per primary team, dose for reduced but rapidly changing gfr bp stable Objective - Vital Signs/Intake and Output Vital Signs (last 24 hours): Temp Pulse Resp BP Pulse Ox 98.1 F 62 19 123/60 96 06/12/18 20:00 06/12/18 22:00 06/12/18 22:00 06/12/18 22:00 06/12/18 22:00 Intake and Output: 06/12/18 06/13/18 18:59 06:59 Intake Total 1400 675 Output Total 1000 Balance 400 675 - Medications Medications: Current Medications Albuterol/Ipratropium (Duoneb 3 Mg/0.5 Mg (3 Ml) Ud) 3 ml INH RTID [facility] Last Admin: 06/12/18 20:04 Dose: 3 ml Clopidogrel Bisulfate (Plavix) 75 mg PO DAILY [facility] Last Admin: 06/12/18 08:16 Dose: 75 mg Lactated Ringer's (Lactated Ringer's) 1,000 mls @ 75 mls/hr IV .[id number] [facility] Last Admin: 06/11/18 19:30 Dose: 75 mls/hr Meropenem 500 mg/ Sodium (Chloride) 100 mls @ 100 mls/hr IVPB Q12H [facility]; Protocol Last Admin: 06/12/18 19:55 Dose: 100 mls/hr Aztreonam 500 mg/ Sodium (Chloride) 50 mls @ 50 mls/hr IVPB Q12 [facility]; Protocol Last Admin: 06/12/18 20:06 Dose: 50 mls/hr Levothyroxine Sodium (Synthroid) 225 mcg PO DAILY@0630 [facility] Last Admin: 06/12/18 05:33 Dose: 225 mcg - Labs Labs: 06/12/18 04:48 06/12/18 04:48 PT 26.1 Seconds (9.8-13.1) H 06/10/18 12:08 INR 2.3 04/25/19 12:08 APTT 39.5 Seconds (25.6-37.1) H 06/10/18 12:08
[2018-06-13] MEDS: Lactated Ringer's 1,000 ML IV SCH ×2 (03:25→20:28)
[2018-06-13 05:14] LABS: BASO % 0.1 % (0.0-2.0); EOS % 0.2 % (0.0-4.0); LYMPH # 1.1 K/uL (1.0-4.3); LYMPH % 7.9 % (20.0-40.0); MEAN CELL VOLUME 92.5 fl (80.0-94.0); MEAN CORPUSCULAR HEMOGLOBIN 30.7 pg (27.0-31.0); MEAN CORPUSCULAR HGB CONC 33.1 g/dL (33.0-37.0); MEAN PLATELET VOLUME 8.4 fl (7.2-11.7); MONO % 7.3 % (0.0-10.0); NEUT # 12.1 K/uL (1.8-7.0); NEUT % 84.5 % (50.0-75.0); NRBC % 0.1 % (0.0-0.0); RBC 2.94 Mil/uL (4.40-5.90); RED CELL DISTRIBUTION WIDTH 14.5 % (11.5-14.5); WHITE BLOOD COUNT 14.3 K/uL (4.8-10.8)
[2018-06-13 05:32] LABS: ALB/GLOB RATIO 0.7 (1.0-2.1); ALBUMIN 2.2 g/dL (3.5-5.0); ALT/SGPT 26 U/L (21-72); AST/SGOT 34 U/L (17-59); BLOOD UREA NITROGEN 54 mg/dl (9-20); CALCIUM 8.3 mg/dL (8.4-10.2); GFR NON-AFRICAN AMERICAN > 60
[2018-06-13] MEDS: Potassium Chloride 20 mEq ER Tab PO STA ×2 (07:12→07:45)
[2018-06-13] MEDS: Levothyroxine 75 MCG TAB PO SCH (07:13)
[2018-06-13] MEDS: Albuterol-Ipratrop 3 mg / 0.5 (3 ml) UD INH SCH ×3 (07:49→19:11)
[2018-06-13] MEDS ORDERED: Potassium Chloride 20 mEq ER Tab PO ONE (08:30)
[2018-06-13] MEDS: Potassium Chloride 20 mEq ER Tab PO SCH (09:08)
--- NOTE | 2018-06-13 12:12 | CP.PCM.PN ---
Subjective - Date & Time of Evaluation Date of Evaluation: 06/13/18 Time of Evaluation: 12:10 - Subjective Subjective: patient denies chest pain or dyspnea. remains in ICU, bu off pressors Objective - Vital Signs/Intake and Output Vital Signs (last 24 hours): Temp Pulse Resp BP Pulse Ox 97.0 F L 60 20 125/74 100 06/13/18 11:58 06/13/18 11:58 06/13/18 11:58 06/13/18 11:58 06/13/18 11:58 Intake and Output: 06/13/18 06/13/18 06:59 18:59 Intake Total 1275 150 Output Total 1200 120 Balance 75 30 - Medications Medications: Current Medications Albuterol/Ipratropium (Duoneb 3 Mg/0.5 Mg (3 Ml) Ud) 3 ml INH RTID [facility] Last Admin: 06/13/18 07:49 Dose: 3 ml Clopidogrel Bisulfate (Plavix) 75 mg PO DAILY [facility] Last Admin: 06/13/18 08:45 Dose: 75 mg Lactated Ringer's (Lactated Ringer's) 1,000 mls @ 75 mls/hr IV .[id number] [facility] Last Admin: 06/13/18 03:25 Dose: 75 mls/hr Meropenem 500 mg/ Sodium (Chloride) 100 mls @ 100 mls/hr IVPB Q12H [facility]; Protocol Last Admin: 06/12/18 19:55 Dose: 100 mls/hr Aztreonam 500 mg/ Sodium (Chloride) 50 mls @ 50 mls/hr IVPB Q12 [facility]; Protocol Last Admin: 06/13/18 08:48 Dose: 50 mls/hr Levothyroxine Sodium (Synthroid) 225 mcg PO DAILY@0630 [facility] Last Admin: 06/13/18 07:13 Dose: 225 mcg Potassium Chloride (K-Dur 20 Meq Er Tab) 20 meq PO DAILY [facility] Last Admin: 06/13/18 09:08 Dose: 20 meq - Labs Labs: 06/13/18 04:08 06/13/18 04:08 PT 26.1 Seconds (9.8-13.1) H 06/10/18 12:08 INR 2.3 06/10/18 12:08 APTT 39.5 Seconds (25.6-37.1) H 06/10/18 12:08 - Constitutional Appears: Chronically Ill - Head Exam Head Exam: NORMAL INSPECTION - Eye Exam Eye Exam: Normal appearance - ENT Exam ENT Exam: Mucous Membranes Moist - Neck Exam Neck Exam: Full ROM, Normal Inspection - Respiratory Exam Respiratory Exam: NORMAL BREATHING PATTERN - Cardiovascular Exam Cardiovascular Exam: REGULAR RHYTHM - GI/Abdominal Exam GI & Abdominal Exam: Normal Bowel Sounds - Rectal Exam Rectal Exam: Deferred - Extremities Exam Extremities Exam: absent: Pedal Edema - Back Exam Back Exam: NORMAL INSPECTION - Neurological Exam Neurological Exam: Alert - Psychiatric Exam Psychiatric exam: Normal Affect - Skin Skin Exam: Normal Color Assessment and Plan (1) Atrial fibrillation Assessment & Plan: paced ventricular rhythm. not on anticoagulation due to hematuria. unlikely to be an ideal candidate for oral anticaogulation. Status: Chronic (2) Aortic stenosis Assessment & Plan: mild Status: Acute (3) CAD (coronary artery disease) Assessment & Plan: Plavix given LAD stent Status: Acute
[2018-06-13] MEDS: Meropenem 500 MG in Sodium Chloride 0.9% 100 ML IVPB SCH (16:58)
--- NOTE | 2018-06-13 20:43 | PN ---
DATE: 06/13/2018 CRITICAL CARE PROGRESS NOTE LOCATION: The patient in ICU, bed 421. TIME SPENT: 35 minutes. The patient is seen and evaluated at the bedside. Past medical, surgical, family, and social history reviewed. SUBJECTIVE: An 82-year-old male, a [facility] resident, with a history significant for chronic atrial fibrillation, status post permanent pacemaker insertion, mild aortic valve stenosis, and coronary artery disease, on Plavix, admitted with suprapubic pain and hematuria, noted to have gram-negative bacteremia, on broad-spectrum antibiotics. Overnight improved urine output, still with hematuria, remains afebrile. Telemetry, atrial fibrillation, rate controlled, less short of breath, on oxygen supplement, saturation over 98%. PHYSICAL EXAMINATION: GENERAL: This morning, alert and awake, follows commands appropriately. VITAL SIGNS: Temperature 97, heart rate 60 and irregular, blood pressure 125/74, mean arterial pressure 91, respiratory rate 20, and saturation at 100%. Intake 2675, output 2200, positive balance 475. HEAD, EYES, EARS, NOSE, AND THROAT: Pupils are reactive. Conjunctivae pink, sclerae white. NECK: Supple, trachea is central. CHEST: Bilateral breath sounds. HEART: Rhythm irregular, no audible murmur. ABDOMEN: Bowel sounds are present, soft. Dong in place. No lesions on the surface. Bag draining dark urine. EXTREMITIES: Upper extremity, no edema. Lower extremity, no edema. SKIN: Without rash, warm to touch. CURRENT MEDICATIONS: Albuterol/Atrovent inhalation 3 mL via nebulizer every 8 hours, aztreonam 500 mg IV every 8 hours, Plavix 75 mg daily, Ringer's lactate 75 mL per hour, Synthroid 225 mcg daily. Levophed being weaned off. LABORATORY DATA: WBC 14.3, hemoglobin 9, hematocrit 27.2, platelet count 171, neutrophils 84.5, lymphocytes 7.9, and monocytes 7.3. SMA-7: Sodium 144, potassium 3.2, chloride 114, CO2 of 25, blood, urea nitrogen 54, creatinine 1.1, calcium 8.3, phosphorus 2.3, magnesium 1.2, total bilirubin 0.3, AST 34, ALT 26, albumin 2.2. Urinalysis; rbc 7496, wbc 930, and digoxin level 2.1. Microbiology: Urine and blood culture positive for E. coli. IMPRESSION: 1. Neurologic: Resolving septic metabolic encephalopathy. 2. Pulmonary: No acute issues noted. 3. Cardiac: History of chronic atrial fibrillation, rate uncontrolled. Blood pressure low normal systolic, off Levophed. 4. Infectious Disease: Gram-negative bacteremia, source urine, Escherichia coli positive, sensitive to aztreonam, vancomycin on hold secondary to high trough level. 5. Hematology: Leukocytosis improved secondary to sepsis, resolving. Hemoglobin and hematocrit stable, normal platelet count, mild coagulopathy secondary to sepsis. 6. Renal: Hypokalemia, being supplemented. Blood urea nitrogen and creatinine are trending down. 7. Gastrointestinal: No acute issues. PLAN: Continue feeding as tolerated. Keep head of bed at 30 degrees up, Dong in place. Right femoral catheter being discontinued. We will change to peripherally inserted central catheter. Henrry Baires MD
[2018-06-14 05:39] LABS: HEMOGLOBIN 9.6 g/dL (12.0-18.0); MEAN CELL VOLUME 93.6 fl (80.0-94.0); MEAN CORPUSCULAR HEMOGLOBIN 30.3 pg (27.0-31.0); MEAN CORPUSCULAR HGB CONC 32.4 g/dL (33.0-37.0); RBC 3.18 Mil/uL (4.40-5.90); RED CELL DISTRIBUTION WIDTH 14.8 % (11.5-14.5); WHITE BLOOD COUNT 12.2 K/uL (4.8-10.8)
[2018-06-14 05:46] LABS: BLOOD UREA NITROGEN 35 mg/dl (9-20); CALCIUM 8.1 mg/dL (8.4-10.2); GFR NON-AFRICAN AMERICAN > 60
[2018-06-14] MEDS: Levothyroxine 75 MCG TAB PO SCH (05:58)
[2018-06-14] MEDS: Meropenem 500 MG in Sodium Chloride 0.9% 100 ML IVPB SCH ×2 (06:02→17:02)
--- NOTE | 2018-06-14 06:11 | CP.PCM.HP ---
History of Present Illness - History of Present Illness History of Present Illness: This is an 82 y/o male with chronic atrial fibrillation,on vent pacemaker , CAD , hypothyroidism , HTN,and OA, recurrent falls and syncope from orthostatic hypotension who had a recent stent ( LAD) and was sent to subacute rehab for P hys therapy . Few weeks later he developed gross hematuria and was sent to the ER last night where he was noted to be in acute renal failure with creatinine of more than 7. He was discharged few weeks ago from the hospital with creatinine of 1.2. He was very SOB on initial eval at the ER. Almost 2 liters of bloody urine was collected upon insertion of sibley cath. Initial Hgb was 9.3. BUN was 98 and cratinine was 4.5. He was on Plavix for stent and Xarelto for anticoagulation. Other workup showed mild cardiomegaly on CXR, paced rhythm on EKG and negative troponin. He had normal BP at the ER. Present on Admission - Present on Admission Any Indicators Present on Admission: No History of DVT/PE: No History of Uncontrolled Diabetes: No Urinary Catheter: No Decubitus Ulcer Present: No Review of Systems - Musculoskeletal Musculoskeletal: Arthralgias Past Patient History - Past Medical History & Family History Past Medical History?: Yes - Past Social History Smoking Status: Never Smoked - CARDIAC Hx Atrial Fibrillation: Yes Hx Cardia Arrhythmia: Yes (bradycardia) Hx Congestive Heart Failure: Yes Hx Hypercholesterolemia: Yes Hx Hypertension: Yes Hx Pacemaker: Yes - PULMONARY Hx Respiratory Disorders: No - NEUROLOGICAL Hx Neurological Disorder: No - HEENT Hx HEENT Problems: No - RENAL Hx Chronic Kidney Disease: No - ENDOCRINE/METABOLIC Hx Hypothyroidism: Yes - HEMATOLOGICAL/ONCOLOGICAL Hx AIDS: No Hx Human Immunodeficiency Virus (HIV): No - INTEGUMENTARY Hx Dermatological Problems: No Hx Cellulitis: Yes - MUSCULOSKELETAL/RHEUMATOLOGICAL Hx Musculoskeletal Disorders: Yes Hx Falls: Yes - GASTROINTESTINAL Hx Gastrointestinal Disorders: No - GENITOURINARY/GYNECOLOGICAL Hx Hematuria: Yes Hx Urinary Tract Infection: Yes - PSYCHIATRIC Hx Psychophysiologic Disorder: No Hx Emotional Abuse: No Hx Physical Abuse: No Hx Substance Use: No - SURGICAL HISTORY Hx Tonsillectomy: Yes - ANESTHESIA Hx Anesthesia: Yes Hx Anesthesia Reactions: No Hx Malignant Hyperthermia: No Meds Allergies/Adverse Reactions: Allergies Allergy/AdvReac Type Severity Reaction Status Date / Time No Known Allergies Allergy Unknown RASH Verified 06/09/18 23:08 Physical Exam - Head Exam Head Exam: NORMAL INSPECTION - Eye Exam Eye Exam: Normal appearance - Respiratory Exam Respiratory Exam: Clear to Auscultation Bilateral - Cardiovascular Exam Additional comments: paced rhythm - GI/Abdominal Exam GI & Abdominal Exam: Normal Bowel Sounds - Exam Additional comments: gross hamturia noted - Neurological Exam Neurological exam: Alert, CN II-XII Intact Results - Vital Signs Recent Vital Signs: Last Vital Signs Temp 98.4 F 06/13/18 20:00 Pulse 63 06/14/18 02:00 Resp 19 06/14/18 02:00 BP 130/72 06/14/18 02:00 Pulse Ox 97 06/14/18 02:00 - Labs Result Diagrams: 06/14/18 04:28 06/14/18 04:30 Labs: Laboratory Results - last 24 hr 06/14/18 06/14/18 04:28 04:30 WBC 12.2 H RBC 3.18 L Hgb 9.6 L Hct 29.7 L MCV 93.6 MCH 30.3 MCHC 32.4 L RDW 14.8 H Plt Count 175 Sodium 144 Potassium 3.5 L Chloride 112 H Carbon Dioxide 26 Anion Gap 10 BUN 35 H Creatinine 0.8 Est GFR ( Amer) > 60 Est GFR (Non-Af Amer) > 60 Random Glucose 118 H Calcium 8.1 L Assessment & Plan (1) Acute renal failure Status: Acute (2) NICOLLE (acute kidney injury) Status: Acute (3) Hematuria Status: Acute (4) CAD (coronary artery disease) Status: Acute (5) Chronic a-fib Status: Acute (6) HTN (hypertension) Status: Acute (7) Orthostatic hypotension Status: Acute (8) Stented coronary artery Status: Acute (9) Hypothyroidism Status: Acute - Assessment and Plan (Free Text) Plan: Will keep patient in ICU as BP at present is very low and continues to have hematuria will monitor CBC CMP Renal eval cardiology eval will continue IV fluids ID consult and start IV antibiotics will do blood and urine C and S. Monitor renal function. prognosis: guarded
--- NOTE | 2018-06-14 06:27 | CP.PCM.PN ---
Subjective - Date & Time of Evaluation Date of Evaluation: 06/11/18 Time of Evaluation: 10:30 - Subjective Subjective: Patient continues to have low BP. Has no chest pain Has mild SOB Continues to have hematuria. Hgb 9.3 creatinine 4.5 C and S urine G neg rods US o fthe kidneys showed hydronephrosis Objective - Vital Signs/Intake and Output Vital Signs (last 24 hours): Temp Pulse Resp BP Pulse Ox 98.3 F 60 20 121/67 99 06/14/18 04:00 06/14/18 06:00 06/14/18 06:00 06/14/18 06:00 06/14/18 06:00 Intake and Output: 06/13/18 06/14/18 18:59 06:59 Intake Total 1700 1305 Output Total 950 1000 Balance 750 305 - Medications Medications: Current Medications Albuterol/Ipratropium (Duoneb 3 Mg/0.5 Mg (3 Ml) Ud) 3 ml INH RTID [facility] Last Admin: 06/13/18 19:11 Dose: 3 ml Clopidogrel Bisulfate (Plavix) 75 mg PO DAILY [facility] Last Admin: 06/13/18 08:45 Dose: 75 mg Lactated Ringer's (Lactated Ringer's) 1,000 mls @ 75 mls/hr IV .[id number] [facility] Last Admin: 06/13/18 20:28 Dose: 75 mls/hr Meropenem 500 mg/ Sodium (Chloride) 100 mls @ 100 mls/hr IVPB Q12H [facility]; Protocol Last Admin: 06/14/18 06:02 Dose: 100 mls/hr Aztreonam 500 mg/ Sodium (Chloride) 50 mls @ 50 mls/hr IVPB Q12 [facility]; Protocol Last Admin: 06/13/18 20:29 Dose: 50 mls/hr Levothyroxine Sodium (Synthroid) 225 mcg PO DAILY@0630 [facility] Last Admin: 06/14/18 05:58 Dose: 225 mcg Potassium Chloride (K-Dur 20 Meq Er Tab) 20 meq PO DAILY [facility] Last Admin: 06/13/18 09:08 Dose: 20 meq - Labs Labs: 06/14/18 04:28 06/14/18 04:30 PT 26.1 Seconds (9.8-13.1) H 06/10/18 12:08 INR 2.3 06/10/18 12:08 APTT 39.5 Seconds (25.6-37.1) H 06/10/18 12:08 - Head Exam Head Exam: NORMAL INSPECTION - Eye Exam Eye Exam: Normal appearance - ENT Exam ENT Exam: Mucous Membranes Moist - Respiratory Exam Respiratory Exam: Clear to Ausculation Bilateral - Cardiovascular Exam Additional comments: paced rhythm - GI/Abdominal Exam GI & Abdominal Exam: Normal Bowel Sounds - Neurological Exam Neurological Exam: Awake, Oriented x3 Assessment and Plan (1) Acute renal failure Status: Acute (2) NICOLLE (acute kidney injury) Status: Acute (3) Hematuria Status: Acute (4) CAD (coronary artery disease) Status: Acute (5) Chronic a-fib Status: Acute (6) HTN (hypertension) Status: Acute (7) Orthostatic hypotension Status: Acute (8) Stented coronary artery Status: Acute (9) Hypothyroidism Status: Acute - Assessment and Plan (Free Text) Plan: Cont meds Cont tx monitor CBC follow up with ID Iv antibiotics IV fluids urology eval.if needed.
--- NOTE | 2018-06-14 06:52 | CP.PCM.PN ---
Subjective - Date & Time of Evaluation Date of Evaluation: 06/12/18 Time of Evaluation: 11:25 - Subjective Subjective: Noted ot have hypotension Still with hematuria Hgb 9.3 Creatinine improved to 2.2 Awake Has less SOB Noted E coli urine Objective - Vital Signs/Intake and Output Vital Signs (last 24 hours): Temp Pulse Resp BP Pulse Ox 98.3 F 60 20 121/67 99 06/14/18 04:00 06/14/18 06:00 06/14/18 06:00 06/14/18 06:00 06/14/18 06:00 Intake and Output: 06/13/18 06/14/18 18:59 06:59 Intake Total 1700 1305 Output Total 950 1000 Balance 750 305 - Medications Medications: Current Medications Albuterol/Ipratropium (Duoneb 3 Mg/0.5 Mg (3 Ml) Ud) 3 ml INH RTID [facility] Last Admin: 06/13/18 19:11 Dose: 3 ml Clopidogrel Bisulfate (Plavix) 75 mg PO DAILY [facility] Last Admin: 06/13/18 08:45 Dose: 75 mg Lactated Ringer's (Lactated Ringer's) 1,000 mls @ 75 mls/hr IV .[id number] [facility] Last Admin: 06/13/18 20:28 Dose: 75 mls/hr Meropenem 500 mg/ Sodium (Chloride) 100 mls @ 100 mls/hr IVPB Q12H [facility]; Protocol Last Admin: 06/14/18 06:02 Dose: 100 mls/hr Aztreonam 500 mg/ Sodium (Chloride) 50 mls @ 50 mls/hr IVPB Q12 [facility]; Protocol Last Admin: 06/13/18 20:29 Dose: 50 mls/hr Levothyroxine Sodium (Synthroid) 225 mcg PO DAILY@0630 [facility] Last Admin: 06/14/18 05:58 Dose: 225 mcg Potassium Chloride (K-Dur 20 Meq Er Tab) 20 meq PO DAILY [facility] Last Admin: 06/13/18 09:08 Dose: 20 meq - Labs Labs: 06/14/18 04:28 06/14/18 04:30 PT 26.1 Seconds (9.8-13.1) H 06/10/18 12:08 INR 2.3 06/10/18 12:08 APTT 39.5 Seconds (25.6-37.1) H 06/10/18 12:08 - Head Exam Head Exam: NORMAL INSPECTION - Eye Exam Eye Exam: Normal appearance - Respiratory Exam Respiratory Exam: NORMAL BREATHING PATTERN - Cardiovascular Exam Additional comments: paced rhythm - GI/Abdominal Exam GI & Abdominal Exam: Normal Bowel Sounds - Neurological Exam Neurological Exam: Awake, Oriented x3 Assessment and Plan (1) Acute renal failure Status: Acute (2) NICOLLE (acute kidney injury) Status: Acute (3) Hematuria Status: Acute (4) CAD (coronary artery disease) Status: Acute (5) Chronic a-fib Status: Acute (6) HTN (hypertension) Status: Acute (7) Orthostatic hypotension Status: Acute (8) Stented coronary artery Status: Acute (9) Hypothyroidism Status: Acute - Assessment and Plan (Free Text) Plan: Cont meds IV antibiotics follow up with Dr Vazquez Cont med Discussed with Dr Darron Arreaga hydration, monitor cbc cmp. Cont current meds Levophed
--- NOTE | 2018-06-14 06:56 | CP.PCM.PN ---
Subjective - Date & Time of Evaluation Date of Evaluation: 06/13/18 Time of Evaluation: 11:00 - Subjective Subjective: Patient noted to have better BP today Has less SOB Has no fever. HGb is 9 and remains to have gross hematuria. Creatinine is reversed to normal. Objective - Vital Signs/Intake and Output Vital Signs (last 24 hours): Temp Pulse Resp BP Pulse Ox 98.3 F 60 20 121/67 99 06/14/18 04:00 06/14/18 06:00 06/14/18 06:00 06/14/18 06:00 06/14/18 06:00 Intake and Output: 06/13/18 06/14/18 18:59 06:59 Intake Total 1700 1305 Output Total 950 1000 Balance 750 305 - Medications Medications: Current Medications Albuterol/Ipratropium (Duoneb 3 Mg/0.5 Mg (3 Ml) Ud) 3 ml INH RTID [facility] Last Admin: 06/13/18 19:11 Dose: 3 ml Clopidogrel Bisulfate (Plavix) 75 mg PO DAILY [facility] Last Admin: 06/13/18 08:45 Dose: 75 mg Lactated Ringer's (Lactated Ringer's) 1,000 mls @ 75 mls/hr IV .[id number] [facility] Last Admin: 06/13/18 20:28 Dose: 75 mls/hr Meropenem 500 mg/ Sodium (Chloride) 100 mls @ 100 mls/hr IVPB Q12H [facility]; Protocol Last Admin: 06/14/18 06:02 Dose: 100 mls/hr Aztreonam 500 mg/ Sodium (Chloride) 50 mls @ 50 mls/hr IVPB Q12 [facility]; Protocol Last Admin: 06/13/18 20:29 Dose: 50 mls/hr Levothyroxine Sodium (Synthroid) 225 mcg PO DAILY@0630 [facility] Last Admin: 06/14/18 05:58 Dose: 225 mcg Potassium Chloride (K-Dur 20 Meq Er Tab) 20 meq PO DAILY [facility] Last Admin: 06/13/18 09:08 Dose: 20 meq - Labs Labs: 06/14/18 04:28 06/14/18 04:30 PT 26.1 Seconds (9.8-13.1) H 06/10/18 12:08 INR 2.3 06/10/18 12:08 APTT 39.5 Seconds (25.6-37.1) H 06/10/18 12:08 - Head Exam Head Exam: NORMAL INSPECTION - Eye Exam Eye Exam: Normal appearance - ENT Exam ENT Exam: Mucous Membranes Moist - Respiratory Exam Respiratory Exam: NORMAL BREATHING PATTERN - Cardiovascular Exam Cardiovascular Exam: REGULAR RHYTHM - GI/Abdominal Exam GI & Abdominal Exam: Normal Bowel Sounds - Neurological Exam Neurological Exam: Awake, Oriented x3 Assessment and Plan (1) Acute renal failure Status: Acute (2) NICOLLE (acute kidney injury) Status: Acute (3) Hematuria Status: Acute (4) CAD (coronary artery disease) Status: Acute (5) Chronic a-fib Status: Acute (6) HTN (hypertension) Status: Acute (7) Orthostatic hypotension Status: Acute (8) Stented coronary artery Status: Acute (9) Hypothyroidism Status: Acute (10) UTI (urinary tract infection) Status: Acute - Assessment and Plan (Free Text) Plan: Cot meds hydration monitor cbc cmp IV antibiotics keep in ICU follow up with cardiology
--- NOTE | 2018-06-14 07:52 | CP.CCUPN ---
CCU Subjective - Physician Review Events Since Last Encounter (Free Text): 06/14/18 13:42 The patient was Seen/interviewed and examined by me at the bedside during ICU round, Medical records reviewed and Management issues were discussed and formulated with the house staff. Events reviewed Patient is 82 years old male with past medical history of congestive heart failure, coronary artery disease, chronic atrial fibrillation is status post pacemaker, hypothyroid And orthostatic hypotension who was admitted for septic shock with bacteremia, urinary tract infection with hematuria and acute kidney injury Initially required vasopressor with Levophed which is off and on for more than 24 hours this morning patient is feeling well, he is laying comfortable in bed in no apparent distress Afebrile overnight Adequate urine output, hematuria clearing up Last 24H I&O 3005/1950 This morning labs revealed Leucocytosis trending down, improving renal function BUN/Cr 35/0.8 06/14/18 13:49 Renal ultrasound reviewed, prior right sided hydronephrosis appears to have resolved, limited to residual left-sided hydronephrosis We will remove the Dong catheter today CCU Objective - Vital Signs / Intake & Output Vital Signs (Last 4 hours): Vital Signs Temp Pulse Resp BP Pulse Ox 06/14/18 06:00 60 20 121/67 99 06/14/18 04:00 98.3 F 60 20 120/71 100 Intake and Output (Last 8hrs): Intake & Output 06/13/18 06/14/18 06/14/18 22:59 06:59 14:59 Intake Total 1070 835 Output Total 710 1000 Balance 360 -165 Weight 199 lb 14.4 oz Intake: IV 600 375 Intake, Piggyback 50 100 Oral 420 360 Output: Urine 710 1000 Urethral (Dong) 710 1000 - Physical Exam Head: Positive for: Other (on NC, 2L ) Extroacular Muscles: Positive for: EOMI Mouth: Positive for: Dry Respiratory/Chest: Positive for: Good Air Exchange. Negative for: Respiratory Distress, Wheezes, Rales Cardiovascular: Positive for: Normal S1, S2, Irregular Rhythm. Negative for: Murmurs Abdomen: Positive for: Normal Bowel Sounds. Negative for: Tenderness, Distention Genitourinary Male: Positive for: Other (Dong noted, no lesions on the surface, bag draining dark urine ) Upper Extremity: Positive for: Normal Inspection. Negative for: Edema Lower Extremity: Positive for: Normal Inspection, Other (Central and arterial line noted, R femoral and R arterial intact. ). Negative for: Edema Skin: Positive for: Warm, Dry, Normal Color Psychiatric: Positive for: Alert - Medications Active Medications: Active Medications Generic Name Dose Route Start Last Admin Trade Name Freq PRN Reason Stop Dose Admin Albuterol/Ipratropium 3 ml 06/10/18 14:00 06/13/18 19:11 Duoneb 3 Mg/0.5 Mg (3 Ml) Ud INH 3 ml RTID BRIAN Administration Clopidogrel Bisulfate 75 mg 06/10/18 19:00 06/13/18 08:45 Plavix PO 75 mg DAILY BRIAN Administration Lactated Ringer's 1,000 mls @ 75 mls/hr 06/11/18 10:15 06/13/18 20:28 Lactated Ringer's IV 75 mls/hr .[id number] BRIAN Administration Meropenem 500 mg/ Sodium 100 mls @ 100 mls/hr 06/12/18 17:30 06/14/18 06:02 Chloride IVPB 100 mls/hr Q12H BRIAN Administration Protocol Aztreonam 500 mg/ Sodium 50 mls @ 50 mls/hr 06/12/18 21:00 06/13/18 20:29 Chloride IVPB 50 mls/hr Q12 BRIAN Administration Protocol Levothyroxine Sodium 225 mcg 06/12/18 06:30 06/14/18 05:58 Synthroid PO 225 mcg DAILY@0630 BRIAN Administration Potassium Chloride 20 meq 06/13/18 09:00 06/13/18 09:08 K-Dur 20 Meq Er Tab PO 20 meq DAILY BRIAN Administration - Patient Studies Lab Studies: Lab Studies 06/14/18 06/14/18 Range/Units 04:30 04:28 WBC 12.2 H (4.8-10.8) K/uL RBC 3.18 L (4.40-5.90) Mil/uL Hgb 9.6 L (12.0-18.0) g/dL Hct 29.7 L (35.0-51.0) % MCV 93.6 (80.0-94.0) fl MCH 30.3 (27.0-31.0) pg MCHC 32.4 L (33.0-37.0) g/dL RDW 14.8 H (11.5-14.5) % Plt Count 175 (130-400) K/uL Sodium 144 (132-148) mmol/l Potassium 3.5 L (3.6-5.0) MMOL/L Chloride 112 H (98-107) mmol/L Carbon Dioxide 26 (22-30) mmol/L Anion Gap 10 (10-20) BUN 35 H (9-20) mg/dl Creatinine 0.8 (0.8-1.5) mg/dl Est GFR ( Amer) > 60 Est GFR (Non-Af Amer) > 60 Random Glucose 118 H (75-110) mg/dL Calcium 8.1 L (8.4-10.2) mg/dL Laboratory Results - last 24 hr 06/14/18 06/14/18 04:28 04:30 WBC 12.2 H RBC 3.18 L Hgb 9.6 L Hct 29.7 L MCV 93.6 MCH 30.3 MCHC 32.4 L RDW 14.8 H Plt Count 175 Sodium 144 Potassium 3.5 L Chloride 112 H Carbon Dioxide 26 Anion Gap 10 BUN 35 H Creatinine 0.8 Est GFR ( Amer) > 60 Est GFR (Non-Af Amer) > 60 Random Glucose 118 H Calcium 8.1 L Critical Care Progress Note - Nutrition Nutrition: Nutrition Category Date Time Status Dysphagia/Modified Consistency Diet [DIET] Diets 06/12/18 Dinner Active Assessment/Plan (1) NICOLLE (acute kidney injury) Current Visit: Yes Status: Acute Priority: High Comment: Status post acute kidney injury due to circulatory failure with septic shock Renal function continue to improve, almost back to baseline (2) Severe sepsis Current Visit: Yes Status: Acute Priority: High Comment: Hemodynamically improving Off vasopressor for more than 24 hours (3) Bacteremia Current Visit: Yes Status: Acute Priority: High Comment: Continue intravenous antibiotic with Azactam and meropenem (4) Hematuria Current Visit: Yes Status: Acute Priority: High Comment: Neurology consult appreciated Renal ultrasound reviewed, prior right sided hydronephrosis appears to have resolved, limited to residual left-sided hydronephrosis We will remove the Dong catheter today (5) UTI (urinary tract infection) Current Visit: Yes Status: Acute Priority: High (6) Hypothyroidism Current Visit: Yes Status: Chronic Priority: Medium Comment: Continue levothyroxine (7) Orthostatic hypotension Current Visit: No Status: Chronic Priority: Medium
[2018-06-14] MEDS: Albuterol-Ipratrop 3 mg / 0.5 (3 ml) UD INH SCH ×3 (08:12→19:04)
[2018-06-14] MEDS: Potassium Chloride 20 mEq ER Tab PO SCH (08:46)
[2018-06-14 09:04] LABS: INR 1.4; PROTHROMBIN TIME 16.2 Seconds (9.8-13.1)
--- NOTE | 2018-06-14 09:29 | CP.PCM.PN ---
Subjective - Date & Time of Evaluation Date of Evaluation: 06/14/18 Time of Evaluation: 09:28 - Subjective Subjective: Patient in bed feeling much better. Kidney function almost recovering status post obstructive uropathy Objective - Vital Signs/Intake and Output Vital Signs (last 24 hours): Temp Pulse Resp BP Pulse Ox 97.4 F L 60 21 129/78 100 06/14/18 08:00 06/14/18 08:00 06/14/18 08:00 06/14/18 08:00 06/14/18 08:00 Intake and Output: 06/14/18 06/14/18 06:59 18:59 Intake Total 1305 170 Output Total 1000 Balance 305 170 - Medications Medications: Current Medications Albuterol/Ipratropium (Duoneb 3 Mg/0.5 Mg (3 Ml) Ud) 3 ml INH RTID BRIAN Last Admin: 06/14/18 08:12 Dose: 3 ml Clopidogrel Bisulfate (Plavix) 75 mg PO DAILY BRIAN Last Admin: 06/14/18 08:46 Dose: 75 mg Lactated Ringer's (Lactated Ringer's) 1,000 mls @ 75 mls/hr IV .[id number] BRIAN Last Admin: 06/13/18 20:28 Dose: 75 mls/hr Meropenem 500 mg/ Sodium (Chloride) 100 mls @ 100 mls/hr IVPB Q12H BRIAN; Prot ocol Last Admin: 06/14/18 06:02 Dose: 100 mls/hr Aztreonam 500 mg/ Sodium (Chloride) 50 mls @ 50 mls/hr IVPB Q12 BRIAN; Protocol Last Admin: 06/14/18 08:50 Dose: 50 mls/hr Levothyroxine Sodium (Synthroid) 225 mcg PO DAILY@0630 [facility] Last Admin: 06/14/18 05:58 Dose: 225 mcg Potassium Chloride (K-Dur 20 Meq Er Tab) 20 meq PO DAILY [facility]RIAN Last Admin: 06/14/18 08:46 Dose: 20 meq - Labs Labs: 06/14/18 04:28 06/14/18 04:30 PT 16.2 Seconds (9.8-13.1) H 06/14/18 08:54 INR 1.4 06/14/18 08:54 APTT 39.5 Seconds (25.6-37.1) H 06/10/18 12:08 - Constitutional Appears: No Acute Distress - Eye Exam Eye Exam: Conjunctival injection - ENT Exam ENT Exam: absent: Mucous Membranes Moist - Neck Exam Neck Exam: absent: Lymphadenopathy - Respiratory Exam Respiratory Exam: NORMAL BREATHING PATTERN. absent: Chest Wall Tenderness, Rhonchi - Cardiovascular Exam Cardiovascular Exam: Irregular Rhythm. absent: Gallop, JVD, Rubs - GI/Abdominal Exam GI & Abdominal Exam: Soft, Normal Bowel Sounds - Extremities Exam Extremities Exam: absent: Calf Tenderness - Back Exam Back Exam: absent: CVA tenderness (L), CVA tenderness (R) - Neurological Exam Neurological Exam: Alert - Skin Skin Exam: absent: Cyanosis Assessment and Plan (1) Hyperkalemia Status: Acute (2) UTI (urinary tract infection) Status: Acute (3) NICOLLE (acute kidney injury) Assessment & Plan: Obstructive uropathy causing acute kidney injury and worsening kidney function on admission Serum creatinine and BUN improving Gross hematuria Leukocytosis Urine tract infection History of coronary artery disease with previous stenting h/o chronic AF Recommendation Patient responded to hydration putting Dong catheter and is making good urine and kidney function improving. Antibiotics as per primary team considering GFR Serum phosphorus and PTH pending Continue monitoring Status: Acute (4) CAD (coronary artery disease) Status: Acute
--- NOTE | 2018-06-14 18:46 | CP.PCM.PN ---
Subjective - Date & Time of Evaluation Date of Evaluation: 06/14/18 Time of Evaluation: 09:00 - Subjective Subjective: patient seen and examined at bedside. Interim events noted No complaints offered at this time denies cp/sob/fever/chills. available diagnostic data reviewed Review of Systems All systems: reviewed and no additional remarkable complaints except mentioned above Objective Vital Signs Stable - Constitutional Appears: Non-toxic, No Acute Distress Head Exam: NORMAL INSPECTION Eye Exam: Normal appearance Respiratory Exam: NORMAL BREATHING PATTERN Cardiovascular Exam: +S1, +S2 GI & Abdominal Exam: Soft Neurological Exam: Alert, Awake Psychiatric exam: Normal Affect, Normal Mood Skin Exam: Normal Color, Warm Assessment and Plan monitor vitals monitor labs Cont meds Cont tx consultants appreciated input wbc persists though improving transfer out of icu rest of plan as ordered Objective - Vital Signs/Intake and Output Vital Signs (last 24 hours): Temp Pulse Resp BP Pulse Ox 97.7 F 64 18 104/62 95 06/14/18 18:02 06/14/18 18:02 06/14/18 18:02 06/14/18 18:02 06/14/18 18:02 Intake and Output: 06/14/18 06/14/18 06:59 18:59 Intake Total 1305 1640 Output Total 1000 150 Balance 305 1490 - Medications Medications: Current Medications Albuterol/Ipratropium (Duoneb 3 Mg/0.5 Mg (3 Ml) Ud) 3 ml INH RTID BRIAN Last Admin: 06/14/18 13:15 Dose: 3 ml Clopidogrel Bisulfate (Plavix) 75 mg PO DAILY BRIAN Last Admin: 06/14/18 08:46 Dose: 75 mg Lactated Ringer's (Lactated Ringer's) 1,000 mls @ 75 mls/hr IV .[id number] BRIAN Last Admin: 06/13/18 20:28 Dose: 75 mls/hr Meropenem 500 mg/ Sodium (Chloride) 100 mls @ 100 mls/hr IVPB Q12H BRIAN; Protocol Last Admin: 06/14/18 17:02 Dose: 100 mls/hr Aztreonam 500 mg/ Sodium (Chloride) 50 mls @ 50 mls/hr IVPB Q12 BRIAN; Protocol Last Admin: 06/14/18 08:50 Dose: 50 mls/hr Levothyroxine Sodium (Synthroid) 225 mcg PO DAILY@0630 [facility] Last Admin: 06/14/18 05:58 Dose: 225 mcg Potassium Chloride (K-Dur 20 Meq Er Tab) 20 meq PO DAILY [facility] Last Admin: 06/14/18 08:46 Dose: 20 meq Rivaroxaban (Xarelto) 15 mg PO QD5 [facility]; Protocol Last Admin: 06/14/18 17:08 Dose: 15 mg - Labs Labs: 06/14/18 04:28 06/14/18 04:30 PT 16.2 Seconds (9.8-13.1) H 06/14/18 08:54 INR 1.4 06/14/18 08:54 APTT 39.5 Seconds (25.6-37.1) H 06/10/18 12:08 Assessment and Plan (1) Infection due to ESBL-producing Escherichia coli Status: Acute
[2018-06-15] MEDS: Meropenem 500 MG in Sodium Chloride 0.9% 100 ML IVPB SCH ×2 (04:38→18:09)
[2018-06-15 05:36] LABS: HEMOGLOBIN 9.4 g/dL (12.0-18.0); MEAN CORPUSCULAR HGB CONC 33.3 g/dL (33.0-37.0); RBC 3.03 Mil/uL (4.40-5.90); RED CELL DISTRIBUTION WIDTH 14.4 % (11.5-14.5)
[2018-06-15 05:49] LABS: BLOOD UREA NITROGEN 28 mg/dl (9-20); CALCIUM 8.2 mg/dL (8.4-10.2); GFR NON-AFRICAN AMERICAN > 60
[2018-06-15] MEDS: Levothyroxine 75 MCG TAB PO SCH (05:51)
[2018-06-15] MEDS ORDERED: Lidocaine 2% Jelly (5 ml) TOP ONE (07:44)
[2018-06-15] MEDS: Albuterol-Ipratrop 3 mg / 0.5 (3 ml) UD INH SCH ×3 (07:55→19:39)
[2018-06-15] MEDS: Potassium Chloride 20 mEq ER Tab PO SCH (10:10)
[2018-06-15] MEDS ORDERED: Lidocaine 2% Inj (20ml) SC ONE (11:00)
--- NOTE | 2018-06-15 11:20 | CP.PCM.PN ---
Subjective - Date & Time of Evaluation Date of Evaluation: 06/15/18 Time of Evaluation: 11:17 - Subjective Subjective: Patient feeling much better Vital signs stable No vomiting reported no nausea and eating much better Objective - Vital Signs/Intake and Output Vital Signs (last 24 hours): Temp Pulse Resp BP Pulse Ox 97.9 F 60 18 116/75 97 06/15/18 08:14 06/15/18 08:14 06/15/18 08:14 06/15/18 08:14 06/15/18 08:14 - Medications Medications: Current Medications Albuterol/Ipratropium (Duoneb 3 Mg/0.5 Mg (3 Ml) Ud) 3 ml INH RTID BRIAN Last Admin: 06/15/18 07:55 Dose: 3 ml Clopidogrel Bisulfate (Plavix) 75 mg PO DAILY BRIAN Last Admin: 06/15/18 10:10 Dose: 75 mg Furosemide (Lasix) 20 mg IVP DAILY [facility] Lactated Ringer's (Lactated Ringer's) 1,000 mls @ 75 mls/hr IV .[id number] BRIAN Last Admin: 06/13/18 20:28 Dose: 75 mls/hr Meropenem 500 mg/ Sodium (Chloride) 100 mls @ 100 mls/hr IVPB Q12H BRIAN; Protocol Last Admin: 06/15/18 04:38 Dose: 100 mls/hr Aztreonam 500 mg/ Sodium (Chloride) 50 mls @ 50 mls/hr IVPB Q12 BRIAN; Protocol Last Admin: 06/15/18 10:11 Dose: 50 mls/hr Levothyroxine Sodium (Synthroid) 225 mcg PO DAILY@0630 [facility]RIAN Last Admin: 06/15/18 05:51 Dose: Not Given Potassium Chloride (K-Dur 20 Meq Er Tab) 20 meq PO DAILY BRIAN Last Admin: 06/15/18 10:10 Dose: 20 meq Rivaroxaban (Xarelto) 15 mg PO QD5 [facility]; Protocol Last Admin: 06/14/18 17:08 Dose: 15 mg Tamsulosin HCl (Flomax) 0.4 mg PO DAILY [facility] - Labs Labs: 06/15/18 04:50 06/15/18 04:50 PT 16.2 Seconds (9.8-13.1) H 06/14/18 08:54 INR 1.4 06/14/18 08:54 APTT 39.5 Seconds (25.6-37.1) H 06/10/18 12:08 - Constitutional Appears: No Acute Distress - Eye Exam Eye Exam: Conjunctival injection - ENT Exam ENT Exam: Mucous Membranes Moist - Neck Exam Neck Exam: absent: Lymphadenopathy - Respiratory Exam Respiratory Exam: Rhonchi, NORMAL BREATHING PATTERN. absent: Chest Wall Tenderness - Cardiovascular Exam Cardiovascular Exam: absent: Gallop, JVD, Rubs - GI/Abdominal Exam GI & Abdominal Exam: Soft, Normal Bowel Sounds - Extremities Exam Extremities Exam: absent: Calf Tenderness - Back Exam Back Exam: absent: CVA tenderness (R) - Neurological Exam Neurological Exam: Alert - Skin Skin Exam: absent: Cyanosis Assessment and Plan (1) Hyperkalemia Status: Acute (2) UTI (urinary tract infection) Status: Acute (3) NICOLLE (acute kidney injury) Assessment & Plan: Patient recovered from acute kidney injury . Serum creatinine down to normal Status post obstructive uropathy Leukocytosis Initially presented with a gross hematuria History of atrial fibrillation and initially admitted with sepsis Recommendation Patient recovered from acute kidney injury Electrolyte unremarkable. Antibiotics as per primary team Status: Acute (4) CAD (coronary artery disease) Status: Acute
[2018-06-16] MEDS: Meropenem 500 MG in Sodium Chloride 0.9% 100 ML IVPB SCH ×3 (04:40→17:39)
[2018-06-16] MEDS: Levothyroxine 75 MCG TAB PO SCH (05:38)
--- NOTE | 2018-06-16 07:19 | CP.PCM.PN ---
Subjective - Date & Time of Evaluation Date of Evaluation: 06/15/18 Time of Evaluation: 11:00 - Subjective Subjective: Patient is not feeling well as he was not able to void after sibley cath was removed. Has no fever Noted some rales. WBC is 15 Urine C and S E coli sens to Merem and Zosyn Currently on Merem Objective - Vital Signs/Intake and Output Vital Signs (last 24 hours): Temp Pulse Resp BP Pulse Ox 98.7 F 60 20 124/80 100 06/16/18 04:57 06/16/18 04:57 06/16/18 04:57 06/16/18 04:57 06/16/18 04:57 Intake and Output: 06/16/18 06/16/18 06:59 18:59 Intake Total 1150 Output Total 3151 -2000 - Medications Medications: Current Medications Albuterol/Ipratropium (Duoneb 3 Mg/0.5 Mg (3 Ml) Ud) 3 ml INH RTID [facility] Last Admin: 06/15/18 19:39 Dose: 3 ml Clopidogrel Bisulfate (Plavix) 75 mg PO DAILY [facility] Last Admin: 06/15/18 10:10 Dose: 75 mg Furosemide (Lasix) 20 mg IVP DAILY [facility] Last Admin: 06/15/18 14:15 Dose: 20 mg Lactated Ringer's (Lactated Ringer's) 1,000 mls @ 75 mls/hr IV .[id number] [facility] Last Admin: 06/13/18 20:28 Dose: 75 mls/hr Meropenem 500 mg/ Sodium (Chloride) 100 mls @ 100 mls/hr IVPB Q12H [facility]; Protocol Last Admin: 06/16/18 04:40 Dose: 100 mls/hr Aztreonam 500 mg/ Sodium (Chloride) 50 mls @ 50 mls/hr IVPB Q12 [facility]; Protocol Last Admin: 06/15/18 20:39 Dose: 50 mls/hr Levothyroxine Sodium (Synthroid) 225 mcg PO DAILY@0630 [facility] Last Admin: 06/16/18 05:38 Dose: 225 mcg Potassium Chloride (K-Dur 20 Meq Er Tab) 20 meq PO DAILY [facility] Last Admin: 06/15/18 10:10 Dose: 20 meq Rivaroxaban (Xarelto) 15 mg PO QD5 [facility]; Protocol Last Admin: 06/15/18 18:12 Dose: Not Given Tamsulosin HCl (Flomax) 0.4 mg PO DAILY [facility] Last Admin: 06/15/18 14:15 Dose: 0.4 mg - Labs Labs: 06/15/18 04:50 06/15/18 04:50 PT 16.2 Seconds (9.8-13.1) H 06/14/18 08:54 INR 1.4 06/14/18 08:54 APTT 39.5 Seconds (25.6-37.1) H 06/10/18 12:08 - Head Exam Head Exam: NORMAL INSPECTION - Eye Exam Eye Exam: Normal appearance - Respiratory Exam Respiratory Exam: Decreased Breath Sounds, Rales - Cardiovascular Exam Additional comments: PACED RHYTHM - GI/Abdominal Exam GI & Abdominal Exam: Tenderness, Normal Bowel Sounds Additional comments: slight tenderness lower abd area distended bladder Assessment and Plan (1) Acute renal failure Status: Acute (2) NICOLLE (acute kidney injury) Status: Acute (3) Hematuria Status: Acute (4) CAD (coronary artery disease) Status: Acute (5) Chronic a-fib Status: Acute (6) HTN (hypertension) Status: Acute (7) Orthostatic hypotension Status: Acute (8) Stented coronary artery Status: Acute (9) Hypothyroidism Status: Chronic (10) UTI (urinary tract infection) Status: Acute - Assessment and Plan (Free Text) Plan: Cont meds Cont tx Cont I antibiotics Follow up with Urology re sibley cath re insertion. Dr Rangel was informed.
[2018-06-16] MEDS: Albuterol-Ipratrop 3 mg / 0.5 (3 ml) UD INH SCH ×3 (07:26→19:21)
[2018-06-16] MEDS: Potassium Chloride 20 mEq ER Tab PO SCH (09:06)
[2018-06-16] MEDS ORDERED: Magnesium Sulfate 1 gm in D5W 1 GM/100 ML BAG IVPB ONE (09:38)
--- NOTE | 2018-06-16 11:20 | CP.PCM.PN ---
Subjective - Date & Time of Evaluation Date of Evaluation: 06/16/18 Time of Evaluation: 11:17 - Subjective Subjective: Patient is conscious alert not in acute distress Patient feeling much better Vital signs stable Objective - Vital Signs/Intake and Output Vital Signs (last 24 hours): Temp Pulse Resp BP Pulse Ox 97.7 F 59 L 18 148/84 95 06/16/18 08:09 06/16/18 08:09 06/16/18 08:09 06/16/18 09:05 06/16/18 08:09 Intake and Output: 06/16/18 06/16/18 06:59 18:59 Intake Total 1150 Output Total 3151 Balance -2000 - Medications Medications: Current Medications Albuterol/Ipratropium (Duoneb 3 Mg/0.5 Mg (3 Ml) Ud) 3 ml INH RTID [facility] Last Admin: 06/16/18 07:26 Dose: 3 ml Clopidogrel Bisulfate (Plavix) 75 mg PO DAILY [facility] Last Admin: 06/16/18 09:06 Dose: 75 mg Furosemide (Lasix) 20 mg IVP DAILY [facility] Last Admin: 06/16/18 09:05 Dose: 20 mg Lactated Ringer's (Lactated Ringer's) 1,000 mls @ 75 mls/hr IV .[id number] [facility] Last Admin: 06/13/18 20:28 Dose: 75 mls/hr Meropenem 500 mg/ Sodium (Chloride) 100 mls @ 100 mls/hr IVPB Q12H [facility]; Protocol Last Admin: 06/16/18 04:40 Dose: 100 mls/hr Aztreonam 500 mg/ Sodium (Chloride) 50 mls @ 50 mls/hr IVPB Q12 [facility]; Protocol Last Admin: 06/16/18 09:07 Dose: 50 mls/hr Levothyroxine Sodium (Synthroid) 225 mcg PO DAILY@0630 [facility] Last Admin: 06/16/18 05:38 Dose: 225 mcg Potassium Chloride (K-Dur 20 Meq Er Tab) 20 meq PO DAILY [facility] Last Admin: 06/16/18 09:06 Dose: 20 meq Rivaroxaban (Xarelto) 15 mg PO QD5 [facility]; Protocol Last Admin: 06/15/18 18:12 Dose: Not Given Tamsulosin HCl (Flomax) 0.4 mg PO DAILY [facility] Last Admin: 06/16/18 09:06 Dose: 0.4 mg - Labs Labs: 06/15/18 04:50 06/15/18 04:50 PT 16.2 Seconds (9.8-13.1) H 06/14/18 08:54 INR 1.4 06/14/18 08:54 APTT 39.5 Seconds (25.6-37.1) H 06/10/18 12:08 - Constitutional Appears: No Acute Distress - Eye Exam Eye Exam: Conjunctival injection - ENT Exam ENT Exam: Mucous Membranes Moist - Respiratory Exam Respiratory Exam: NORMAL BREATHING PATTERN. absent: Chest Wall Tenderness - Cardiovascular Exam Cardiovascular Exam: absent: Gallop, JVD, Rubs - GI/Abdominal Exam GI & Abdominal Exam: Soft, Normal Bowel Sounds - Extremities Exam Extremities Exam: absent: Calf Tenderness - Back Exam Back Exam: absent: CVA tenderness (L), CVA tenderness (R) - Neurological Exam Neurological Exam: Alert - Skin Skin Exam: absent: Cyanosis Assessment and Plan (1) Hyperkalemia Status: Acute (2) UTI (urinary tract infection) Assessment & Plan: Patient recovered from acute kidney injury . Serum creatinine down to normal Status post obstructive uropathy Leukocytosis UTI Initially presented with a gross hematuria History of atrial fibrillation and initially admitted with sepsis Recommendation Patient recovered from acute kidney injury Electrolyte unremarkable. Antibiotics as per primary team Status: Acute (3) NICOLLE (acute kidney injury) Status: Acute (4) CAD (coronary artery disease) Status: Acute
--- NOTE | 2018-06-16 17:19 | PQF ---
PROVIDER RESPONSE TEXT: Provider was unable to determine a response for this query. REVIEWER QUERY TEXT: Clarification of Clinical Diagnostic Findings Physician?s Documentation Request This Form is Not a Permanent Document in the Medical Record Pt Name: KIMMY CALDERON MR #: [id number] Payor: MEDICARE PART A Unit/Bed: [id number].TEL-H415-1 Adm Date: 06/10/2018 2:20:00 AM Reviewer: Jolene Mei Ext. Query Date: 06/15/2018 3:30:25 PM Clarification of Clinical Diagnostic Findings [id number] By submitting this query, we are merely seeking further clarification of documentation to accurately reflect all conditions that you are monitoring, evaluating, treating or that extend the hospitalizati on or utilize additional resources of care. Please utilize your independent clinical judgment when ad dressing the question(s) below. Dear Doctor Kirill Carrillo, The patient?s Clinical Indicators include: -- Please clarify if in agreement with Sepsis: POA: as listed in the Critical Care and Renal progress no te? OR: Disagree OR: Other explanation of clinical finding : @23:31:B/P: 151/84----06/10: B/P:79/41->78/44->75/41->76/43->111/51 WBC:18.0->24.1->22.6->22.1 with band 2->8->8 06/12 Critical Care note includes:: Septic metabolic encephalopathy, resolving.- --Gram-negative bacteremia, source urine, Escherichia coli positive, sensitive to aztreonam and vanco mycin. Vancomycin on hold, secondary to high trough level. --Leukocytosis secondary to gram-negative bacteremia urinary tract infection. Mild coagulopathy secondary to sepsis. 06/14: Critical Care note includes: Status post acute kidney injury due to circulatory failure with s eptic shock-- --Severe sepsis Current Visit: Yes Status: Acute Priority: High Comment: Hemodynamically improving Of f vasopressor for more than 24 hours -- Bacteremia Current Visit: Yes Status: Acute Priority: High Comment: Continue intravenous antibioti c with Azactam and meropenem --Hematuria_Current Visit: Yes Status: Acute Priority: High Comment: Renal ultrasound reviewed, prior right sided hydronephrosis appears to have resolved, limited to residual left-sided hydronephrosis We will remove the Dong catheter today 06/15 Renal: NICOLLE (acute kidney injury) ; recovered from acute kidney injury .Serum creatinine down to normal Status post obstructive uropathy Leukocytosis Initially presented with a gross hematuria History of atrial fibrillation and initially admitted with sepsis PLEASE DOCUMENT ANY ADDITIONAL DIAGNOSES AND/OR SPECIFICITY IN THE PROGRESS NOTES AND/OR DISCHARGE PAGAN MMARY. Clinically unable to determine/unknown Disagree with the above request Need to discuss Query created by: Jolene Mei on 06/15/2018 3:30 PM Electronically signed by: Kirill Carrillo 06/16/2018 5:17 PM
[2018-06-17] MEDS: Meropenem 500 MG in Sodium Chloride 0.9% 100 ML IVPB SCH ×2 (04:47→17:46)
[2018-06-17] MEDS: Levothyroxine 75 MCG TAB PO SCH (06:02)
[2018-06-17 06:09] LABS: HEMOGLOBIN 9.7 g/dL (12.0-18.0); MEAN CELL VOLUME 93.2 fl (80.0-94.0); MEAN CORPUSCULAR HEMOGLOBIN 31.5 pg (27.0-31.0); MEAN CORPUSCULAR HGB CONC 33.8 g/dL (33.0-37.0); RBC 3.08 Mil/uL (4.40-5.90); RED CELL DISTRIBUTION WIDTH 14.6 % (11.5-14.5); WHITE BLOOD COUNT 11.6 K/uL (4.8-10.8)
[2018-06-17 06:22] LABS: BLOOD UREA NITROGEN 20 mg/dl (9-20); CALCIUM 7.9 mg/dL (8.4-10.2); GFR NON-AFRICAN AMERICAN > 60
[2018-06-17] MEDS: Albuterol-Ipratrop 3 mg / 0.5 (3 ml) UD INH SCH ×3 (08:04→19:14)
[2018-06-17] MEDS: Potassium Chloride 20 mEq ER Tab PO SCH (10:03)
[2018-06-17] MEDS ORDERED: Magnesium Sulfate 2 gm/50 ml 2 GM/50 ML BAG IVPB ONE (14:04)
--- NOTE | 2018-06-17 15:37 | CP.PCM.PN ---
Subjective - Date & Time of Evaluation Date of Evaluation: 06/17/18 Time of Evaluation: 09:00 - Subjective Subjective: patient seen and examined at bedside. Interim events noted complains of constipation denies cp/sob/fever/chills. available diagnostic data reviewed Review of Systems All systems: reviewed and no additional remarkable complaints except mentioned above Objective Vital Signs Stable - Constitutional Appears: Non-toxic, No Acute Distress Head Exam: NORMAL INSPECTION Eye Exam: Normal appearance Respiratory Exam: NORMAL BREATHING PATTERN Cardiovascular Exam: +S1, +S2 GI & Abdominal Exam: mildly distended, +BS Neurological Exam: Alert, Awake Psychiatric exam: Normal Affect, Normal Mood Skin Exam: Normal Color, Warm Assessment and Plan monitor vitals monitor labs Cont meds Cont tx consultants appreciated input lactulose if no improvement, consider abd xray rest of plan as ordered Objective - Vital Signs/Intake and Output Vital Signs (last 24 hours): Temp Pulse Resp BP Pulse Ox 97.5 F L 84 20 112/64 96 06/17/18 11:49 06/17/18 14:43 06/17/18 11:49 06/17/18 11:49 06/17/18 14:43 Intake and Output: 06/17/18 06/17/18 06:59 18:59 Intake Total 350 70 Output Total 600 1675 Balance -250 -1605 - Medications Medications: Current Medications Albuterol/Ipratropium (Duoneb 3 Mg/0.5 Mg (3 Ml) Ud) 3 ml INH RTID [facility] Last Admin: 06/17/18 13:13 Dose: 3 ml Clopidogrel Bisulfate (Plavix) 75 mg PO DAILY [facility] Last Admin: 06/17/18 10:04 Dose: 75 mg Docusate Sodium (Colace) 100 mg PO BID [facility] Last Admin: 06/17/18 10:02 Dose: 100 mg Furosemide (Lasix) 20 mg IVP DAILY [facility] Last Admin: 06/17/18 10:04 Dose: 20 mg Lactated Ringer's (Lactated Ringer's) 1,000 mls @ 75 mls/hr IV .[id number] [facility] Last Admin: 06/13/18 20:28 Dose: 75 mls/hr Meropenem 500 mg/ Sodium (Chloride) 100 mls @ 100 mls/hr IVPB Q12H [facility]; Protocol Last Admin: 06/17/18 04:47 Dose: 100 mls/hr Aztreonam 500 mg/ Sodium (Chloride) 50 mls @ 50 mls/hr IVPB Q12 [facility]; Protocol Last Admin: 06/17/18 10:02 Dose: 50 mls/hr Lactulose (Enulose) 20 gm PO DAILY PRN PRN Reason: Constipation Last Admin: 06/17/18 10:06 Dose: 20 gm Levothyroxine Sodium (Synthroid) 225 mcg PO DAILY@0630 [facility] Last Admin: 06/17/18 06:02 Dose: 225 mcg Potassium Chloride (K-Dur 20 Meq Er Tab) 20 meq PO DAILY [facility] Last Admin: 06/17/18 10:03 Dose: 20 meq Tamsulosin HCl (Flomax) 0.4 mg PO DAILY [facility] Last Admin: 06/17/18 10:03 Dose: 0.4 mg - Labs Labs: 06/17/18 05:15 06/17/18 05:15 PT 16.2 Seconds (9.8-13.1) H 06/14/18 08:54 INR 1.4 06/14/18 08:54 APTT 39.5 Seconds (25.6-37.1) H 06/10/18 12:08 Assessment and Plan (1) Infection due to ESBL-producing Escherichia coli Status: Acute
[2018-06-17] MEDS ORDERED: Chlorhexidine Gluconate 1 APPL/PKT TP ONE (16:34)
--- NOTE | 2018-06-18 00:33 | CP.PCM.PN ---
Subjective - Date & Time of Evaluation Date of Evaluation: 06/16/18 Time of Evaluation: 09:00 - Subjective Subjective: Pt seen and assessed at bedside. Renal function has improved, urine is starting to clear up. As per the pt, he is constipated and has not moved his bowels in 3 days. Subjective Review of Systems: Reviewed and no additional remarkable complaints except cough and intermittent dyspnea. Objective Appears: Anxious, Non-toxic, No Acute Distress. Head Exam: NORMAL INSPECTION, normocephalic. Eye Exam: Normal eye inspection, EOMI, PERRLA. Respiratory Exam: NORMAL BREATHING PATTERN, breath sounds diminished bilaterally. Cardiovascular Exam: +S1, +S2. RRR. GI & Abdominal Exam: Soft, non-tender, non-distended. Neurological Exam: Alert, awake, oriented x 3. Psychiatric exam: Normal mood. Calm and cooperative. Skin exam: Pallor, warm, dry. Assessment/Impression/Plan: 1.) Renal failure/Hematuria -NICOLLE resolving; secondary to obstructive uropathy as well as pre-renal etiology. -All consults input appreciated. -Started on lactulose for constipation. -Merrem antibiotics ongoing. -Monitor urine output. -Continue current treatment. Objective - Vital Signs/Intake and Output Vital Signs (last 24 hours): Temp Pulse Resp BP Pulse Ox 98 F 59 L 18 119/71 99 06/18/18 00:19 06/18/18 00:19 06/18/18 00:19 06/18/18 00:19 06/18/18 00:19 Intake and Output: 06/17/18 06/18/18 18:59 06:59 Intake Total 70 Output Total 1675 Balance -1605 - Medications Medications: Current Medications Albuterol/Ipratropium (Duoneb 3 Mg/0.5 Mg (3 Ml) Ud) 3 ml INH RTID [facility] Last Admin: 06/17/18 19:14 Dose: Not Given Clopidogrel Bisulfate (Plavix) 75 mg PO DAILY [facility] Last Admin: 06/17/18 10:04 Dose: 75 mg Docusate Sodium (Colace) 100 mg PO BID [facility] Last Admin: 06/17/18 16:27 Dose: 100 mg Furosemide (Lasix) 20 mg IVP DAILY [facility] Last Admin: 06/17/18 10:04 Dose: 20 mg Lactated Ringer's (Lactated Ringer's) 1,000 mls @ 75 mls/hr IV .[id number] [facility] Last Admin: 06/13/18 20:28 Dose: 75 mls/hr Meropenem 500 mg/ Sodium (Chloride) 100 mls @ 100 mls/hr IVPB Q12H [facility]; Protocol Last Admin: 06/17/18 17:46 Dose: 100 mls/hr Lactulose (Enulose) 20 gm PO DAILY PRN PRN Reason: Constipation Last Admin: 06/17/18 10:06 Dose: 20 gm Levothyroxine Sodium (Synthroid) 225 mcg PO DAILY@0630 [facility] Last Admin: 06/17/18 06:02 Dose: 225 mcg Potassium Chloride (K-Dur 20 Meq Er Tab) 20 meq PO DAILY [facility] Last Admin: 06/17/18 10:03 Dose: 20 meq Tamsulosin HCl (Flomax) 0.4 mg PO DAILY [facility] Last Admin: 06/17/18 10:03 Dose: 0.4 mg - Labs Labs: 06/17/18 05:15 06/17/18 05:15 PT 16.2 Seconds (9.8-13.1) H 06/14/18 08:54 INR 1.4 06/14/18 08:54 APTT 39.5 Seconds (25.6-37.1) H 06/10/18 12:08 Assessment and Plan (1) NICOLLE (acute kidney injury) Status: Acute (2) Acute renal failure Status: Acute (3) Hematuria Status: Acute
[2018-06-18] MEDS: Meropenem 500 MG in Sodium Chloride 0.9% 100 ML IVPB SCH ×2 (06:25→18:27)
[2018-06-18] MEDS: Levothyroxine 75 MCG TAB PO SCH (06:40)
[2018-06-18] MEDS: Albuterol-Ipratrop 3 mg / 0.5 (3 ml) UD INH SCH ×3 (08:08→19:29)
[2018-06-18] MEDS: Potassium Chloride 20 mEq ER Tab PO SCH (09:33)
--- NOTE | 2018-06-18 13:41 | RAD ---
Date of service: 06/18/2018 HISTORY: constipation COMPARISON: None available. TECHNIQUE: 1 view obtained. FINDINGS: BOWEL: Distended stomach containing fluid and debris. BONES: Normal. OTHER FINDINGS: None. IMPRESSION: Limited study to a single AP view. Gastric distension noted. No other significant findings on this limited examination.
[2018-06-18] MEDS ORDERED: Magnesium Sulfate 1 gm in D5W 1 GM/100 ML BAG IVPB ONE (14:19)
[2018-06-19] MEDS: Meropenem 500 MG in Sodium Chloride 0.9% 100 ML IVPB SCH (06:04)
[2018-06-19] MEDS: Levothyroxine 75 MCG TAB PO SCH (06:04)
[2018-06-19 06:50] LABS: MEAN CELL VOLUME 93.3 fl (80.0-94.0); MEAN CORPUSCULAR HEMOGLOBIN 30.7 pg (27.0-31.0); MEAN CORPUSCULAR HGB CONC 32.9 g/dL (33.0-37.0); RBC 2.94 Mil/uL (4.40-5.90); RED CELL DISTRIBUTION WIDTH 14.6 % (11.5-14.5); WHITE BLOOD COUNT 16.1 K/uL (4.8-10.8)
[2018-06-19 06:55] LABS: ALB/GLOB RATIO 0.7 (1.0-2.1); ALBUMIN 2.2 g/dL (3.5-5.0); ALT/SGPT 24 U/L (21-72); AST/SGOT 19 U/L (17-59); BLOOD UREA NITROGEN 16 mg/dl (9-20); CALCIUM 7.7 mg/dL (8.4-10.2); GFR NON-AFRICAN AMERICAN > 60
[2018-06-19] MEDS: Albuterol-Ipratrop 3 mg / 0.5 (3 ml) UD INH SCH ×2 (07:08→12:59)
[2018-06-19] MEDS: Potassium Chloride 20 mEq ER Tab PO SCH (09:19)
[2018-06-19 15:46] VITALS: BP 115/72; PULSE 62; RESP 18; TEMP 97.7; O2SAT 95
--- NOTE | 2018-06-20 20:06 | CP.PCM.PN ---
Subjective - Date & Time of Evaluation Date of Evaluation: 06/18/18 Time of Evaluation: 11:15 - Subjective Subjective: Patient remains stable Has no chest or SOB Still constipated. Objective - Vital Signs/Intake and Output Vital Signs (last 24 hours): Temp Pulse Resp BP Pulse Ox 97.7 F 62 18 115/72 95 06/19/18 15:45 06/19/18 15:45 06/19/18 15:45 06/19/18 15:45 06/19/18 15:45 - Labs Labs: 06/19/18 04:35 06/19/18 04:35 PT 16.2 Seconds (9.8-13.1) H 06/14/18 08:54 INR 1.4 06/14/18 08:54 APTT 39.5 Seconds (25.6-37.1) H 06/10/18 12:08 - Head Exam Head Exam: NORMAL INSPECTION - Eye Exam Eye Exam: Normal appearance - ENT Exam ENT Exam: Mucous Membranes Moist - Respiratory Exam Respiratory Exam: Clear to Ausculation Bilateral - GI/Abdominal Exam GI & Abdominal Exam: Soft, Normal Bowel Sounds - Neurological Exam Neurological Exam: Awake - Psychiatric Exam Psychiatric exam: Normal Mood Assessment and Plan (1) Acute renal failure Status: Acute (2) NICOLLE (acute kidney injury) Status: Acute (3) Hematuria Status: Acute (4) CAD (coronary artery disease) Status: Acute (5) Chronic a-fib Status: Acute (6) HTN (hypertension) Status: Acute (7) Orthostatic hypotension Status: Acute (8) Stented coronary artery Status: Acute (9) Hypothyroidism Status: Chronic (10) UTI (urinary tract infection) Status: Acute - Assessment and Plan (Free Text) Plan: Cont meds Cont tx discharge plans follow up Xray abdomen
--- NOTE | 2018-06-21 01:17 | CP.PCM.DIS ---
Provider - Provider Date of Admission: 06/10/18 02:20 Attending physician: Nabor Dueñas MD Consults: 06/10/18 05:55 Nephrology Consult Stat Comment: Consulting Provider: Phoenix Dejesus Consulting Physician: Phoenix Dejesus Reason for Consult: renal failure 06/10/18 10:33 Cardiology Consult Routine Comment: Consulting Provider: Galdino Rob Consulting Physician: Galdino Rob Reason for Consult: A-fib, CHF 06/10/18 10:37 Critical Care Consult Routine Comment: Consulting Provider: Philippe Scanlon Consulting Physician: Philippe Scanlon Reason for Consult: hypotension, active bleed 06/11/18 15:19 Infectious Disease Consult Routine Comment: Consulting Provider: Brandon Vazquez Consulting Physician: Brandon Vazquez Reason for Consult: bacteremia 06/12/18 09:00 Case Management Referral Routine Comment: Physician Instructions: Reason For Exam: admission 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 06/15/18 07:00 Urology Consult Routine Comment: Consulting Provider: Елена Marquez Consulting Physician: Елена Marquez Reason for Consult: place urinary cath Time Spent in preparation of Discharge (in minutes): 30 Diagnosis - Discharge Diagnosis (1) NICOLLE (acute kidney injury) Status: Acute Priority: High (2) Acute renal failure Status: Acute (3) Hematuria Status: Acute Priority: High Hospital Course - Lab Results Lab Results: Micro Results 06/17/18 12:30 Blood-Venous Blood Culture - Preliminary NO GROWTH AFTER 3 DAYS 06/18/18 15:15 Urine,Dong Urine Culture - Final No Growth (<1,000 CFU/ML) 06/14/18 16:48 Nose MRSA Culture (Admit) - Final MRSA NOT DETECTED 06/10/18 01:15 Blood-Venous Blood Culture - Final Escherichia Coli 06/10/18 01:15 Blood-Venous Gram Stain - Final 06/10/18 06:00 Urine,Dong Urine Culture - Final Escherichia Coli 06/10/18 01:00 Blood-Venous Blood Culture - Final Escherichia Coli 06/10/18 01:00 Blood-Venous Gram Stain - Final 06/10/18 17:00 Naris MRSA Culture (Admit) - Final MRSA NOT DETECTED Most Recent Lab Values WBC 16.1 K/uL (4.8-10.8) H 06/19/18 04:35 RBC 2.94 Mil/uL (4.40-5.90) L 06/19/18 04:35 Hgb 9.0 g/dL (12.0-18.0) L 06/19/18 04:35 Hct 27.5 % (35.0-51.0) L 06/19/18 04:35 MCV 93.3 fl (80.0-94.0) 06/19/18 04:35 MCH 30.7 pg (27.0-31.0) 06/19/18 04:35 MCHC 32.9 g/dL (33.0-37.0) L 06/19/18 04:35 RDW 14.6 % (11.5-14.5) H 06/19/18 04:35 Plt Count 191 K/uL (130-400) 06/19/18 04:35 MPV 8.4 fl (7.2-11.7) 06/13/18 04:08 Neut % (Auto) 84.5 % (50.0-75.0) H 06/13/18 04:08 Lymph % (Auto) 7.9 % (20.0-40.0) L 06/13/18 04:08 Haywood % (Auto) 7.3 % (0.0-10.0) 06/13/18 04:08 Eos % (Auto) 0.2 % (0.0-4.0) 06/13/18 04:08 Baso % (Auto) 0.1 % (0.0-2.0) 06/13/18 04:08 Neut # (Auto) 12.1 K/uL (1.8-7.0) H 06/13/18 04:08 Lymph # (Auto) 1.1 K/uL (1.0-4.3) 06/13/18 04:08 Haywood # (Auto) 1.0 K/uL (0.0-0.8) H 06/13/18 04:08 Eos # (Auto) 0.0 K/uL (0.0-0.7) 06/13/18 04:08 Baso # (Auto) 0.0 K/uL (0.0-0.2) 06/13/18 04:08 Total Counted Cancelled 06/11/18 05:55 Neutrophils % (Manual) 81 % (42-75) H 06/11/18 18:20 Band Neutrophils % 8 % (0-2) H 06/11/18 18:20 Lymphocytes % (Manual) 6 % (20-50) L 06/11/18 18:20 Reactive Lymphs % Cancelled 06/11/18 05:55 Monocytes % (Manual) 5 % (0-10) 06/11/18 18:20 Eosinophils % (Manual) 1 % (0-7) 06/10/18 01:00 Basophils % (Manual) 1 % (0-2) 06/10/18 01:00 Metamyelocytes % Cancelled 06/11/18 05:55 Myelocytes % Cancelled 06/11/18 05:55 Promyelocytes % Cancelled 06/11/18 05:55 Blast Cells % Cancelled 06/11/18 05:55 Plasma Cell % (Manual) Cancelled 06/11/18 05:55 Nucleated RBC % Cancelled 06/11/18 05:55 Hypersegmented Polys Cancelled 06/11/18 05:55 Smudge Cells Present 06/11/18 18:20 Toxic Granulation Present 06/10/18 10:38 Dohle Bodies Cancelled 06/11/18 05:55 John Rods Cancelled 06/11/18 05:55 Platelet Estimate Normal (NORMAL) 06/11/18 18:20 Plt Clumps, EDTA Present 06/10/18 10:38 Large Platelets Cancelled 06/11/18 05:55 Giant Platelets Cancelled 06/11/18 05:55 RBC Morphology Normal (NORMAL) 06/10/18 01:00 Polychromasia Slight 06/10/18 17:45 Hypochromasia (manual) Slight 06/11/18 18:20 Poikilocytosis (manual Slight 06/11/18 18:20 Basophilic Stippling Cancelled 06/11/18 05:55 Anisocytosis (manual) Slight 06/11/18 18:20 Microcytosis (manual) Cancelled 06/11/18 05:55 Macrocytosis (manual) Cancelled 06/11/18 05:55 Spherocytes Cancelled 06/11/18 05:55 Sickle Cells Cancelled 06/11/18 05:55 Target Cells Cancelled 06/11/18 05:55 Tear Drop Cells Cancelled 06/11/18 05:55 Ovalocytes Slight 06/10/18 17:45 Stomatocytes Cancelled 06/11/18 05:55 Helmet Cells Cancelled 06/11/18 05:55 Lindquist-Epworth Bodies Cancelled 06/11/18 05:55 Bety Cells Slight 06/10/18 17:45 Acanthocytes (Spur) Cancelled 06/11/18 05:55 Rouleaux Cancelled 06/11/18 05:55 Schistocytes Slight 06/10/18 17:45 PT 16.2 Seconds (9.8-13.1) H 06/14/18 08:54 INR 1.4 06/14/18 08:54 APTT 39.5 Seconds (25.6-37.1) H 06/10/18 12:08 pO2 22 mm/Hg (30-55) L 06/10/18 01:12 VBG pH 7.38 (7.32-7.43) 06/10/18 01:12 VBG pCO2 40 mmHg (40-60) 06/10/18 01:12 VBG HCO3 22.2 mmol/L 06/10/18 01:12 VBG Total CO2 24.9 mmol/L (22-28) 06/10/18 01:12 VBG O2 Sat (Calc) 31.1 % (40-65) L 06/10/18 01:12 VBG Base Excess -1.3 mmol/L (0.0-2.0) L 06/10/18 01:12 Sodium 169.0 mmol/L (132-148) H* 06/10/18 01:12 Chloride 114.0 mmol/L (98-107) H 06/10/18 01:12 Glucose 88 mg/dL (75-110) 06/10/18 01:12 Lactate 2.4 mmol/L (0.7-2.1) H 06/10/18 01:12 FiO2 21.0 % 06/10/18 01:12 Crit Value Called To Zak syed md 06/10/18 01:12 Crit Value Called By 333 06/10/18 01:12 Crit Value Read Back Y 06/10/18 01:12 Blood Gas Notified Time 115 06/10/18 01:12 Sodium 134 mmol/l (132-148) 06/19/18 04:35 Potassium 3.8 MMOL/L (3.6-5.0) 06/19/18 04:35 Chloride 98 mmol/L (98-107) 06/19/18 04:35 Carbon Dioxide 31 mmol/L (22-30) H 06/19/18 04:35 Anion Gap 9 (10-20) L 06/19/18 04:35 BUN 16 mg/dl (9-20) 06/19/18 04:35 Creatinine 0.6 mg/dl (0.8-1.5) L 06/19/18 04:35 Est GFR ( Amer) > 60 06/19/18 04:35 Est GFR (Non-Af Amer) > 60 06/19/18 04:35 POC Glucose (mg/dL) 92 mg/dL (65-110) 06/10/18 05:01 Random Glucose 79 mg/dL (75-110) 06/19/18 04:35 Lactic Acid 1.4 mmol/L (0.7-2.1) 06/10/18 17:45 Calcium 7.7 mg/dL (8.4-10.2) L 06/19/18 04:35 Phosphorus 2.6 mg/dl (2.5-4.5) 06/19/18 04:35 Magnesium 1.5 MG/DL (1.6-2.3) L 06/19/18 04:35 Total Bilirubin 0.5 mg/dl (0.2-1.3) 06/19/18 04:35 AST 19 U/L (17-59) 06/19/18 04:35 ALT 24 U/L (21-72) 06/19/18 04:35 Alkaline Phosphatase 64 U/L (38-126) 06/19/18 04:35 Troponin I 0.0240 ng/mL (0.00-0.120) 06/11/18 00:20 Total Protein 5.1 G/DL (6.3-8.2) L 06/19/18 04:35 Albumin 2.2 g/dL (3.5-5.0) L 06/19/18 04:35 Globulin 3.0 gm/dL (2.2-3.9) 06/19/18 04:35 Albumin/Globulin Ratio 0.7 (1.0-2.1) L 06/19/18 04:35 Procalcitonin 4.92 NG/ML (0.19-0.49) H 06/10/18 08:45 Thyroxine (T4) 2.81 ug/dl (5.5-11.0) L 06/10/18 17:45 Free T3 pg/mL 1.10 pg/mL (2.77-5.27) L 06/11/18 05:55 TSH 3rd Generation 1.26 mIU/ML (0.46-4.68) 06/10/18 17:45 Urine Color Yellow (YELLOW) 06/10/18 02:54 Urine Clarity Cloudy (Clear) 06/10/18 02:54 Urine pH 6.0 (5.0-8.0) 06/10/18 02:54 Ur Specific [place] 1.005 (1.003-1.030) 06/10/18 02:54 Urine Protein 30 mg/dL (NEGATIVE) 06/10/18 02:54 Urine Glucose (UA) Neg mg/dL (NEGATIVE) 06/10/18 02:54 Urine Ketones Negative mg/dL (NEGATIVE) 06/10/18 02:54 Urine Blood Large (NEGATIVE) 06/10/18 02:54 Urine Nitrate Negative (NEGATIVE) 06/10/18 02:54 Urine Bilirubin Negative (NEGATIVE) 06/10/18 02:54 Urine Urobilinogen 0.2-1.0 mg/dL (0.2-1.0) 06/10/18 02:54 Ur Leukocyte Esterase Large Michael/uL (Negative) 06/10/18 02:54 Urine RBC (Auto) 7496 /hpf (0-3) H 06/10/18 02:54 Urine Microscopic WBC 930 /hpf (0-5) H 06/10/18 02:54 Ur Random Creatinine 75.7 mg/dL 06/11/18 05:45 Ur Random Sodium 90 meq/L 06/10/18 17:00 Ur Random Potassium 28.2 mmol/L 06/10/18 17:00 Digoxin 2.1 ng/mL (0.8-2.0) H 06/10/18 18:00 Blood Type B POSITIVE 06/10/18 17:45 Antibody Screen Negative 06/10/18 17:45 BBK History Checked Patient has bt 06/10/18 17:45 - Hospital Course Hospital Course: Pt was admitted for NICOLLE/Renal failure and gross hematuria. The pt was found to be severely dehydrated and was given IVF volume replacement. After kidney function improved, the pt was stabilized and transferred to telemetry. He remains stable and was discharged back to [facility]. Discharge Exam - Head Exam Head Exam: NORMAL INSPECTION - Eye Exam Eye Exam: Normal appearance Pupil Exam: NORMAL ACCOMODATION - ENT Exam ENT Exam: Mucous Membranes Moist - Neck Exam Neck exam: Normal Inspection - Respiratory Exam Respiratory Exam: NORMAL BREATHING PATTERN - Cardiovascular Exam Cardiovascular Exam: REGULAR RHYTHM - GI/Abdominal Exam GI & Abdominal Exam: Normal Bowel Sounds - Extremities Exam Extremities exam: normal inspection - Back Exam Back exam: NORMAL INSPECTION - Neurological Exam Neurological exam: Alert - Psychiatric Exam Psychiatric exam: Normal Mood - Skin Skin Exam: Dry, Normal Color, Warm Discharge Plan - Discharge Medications Prescriptions: MEROPENEM 500 MG in NS [Merrem IV 500 MG/NS 50 ML] 500 mg IV Q12 #20 bag - Follow Up Plan Condition: FAIR Disposition: REHAB FACILITY/REHAB UNIT Additional Instructions: Continue with Dong for urinary retention. follow up with Urologist, Dr. Marquez for further orders. Referrals: Елена Marquez MD [Medical Doctor] -
--- NOTE | 2018-06-23 11:54 | PQF ---
PROVIDER RESPONSE TEXT: Sepsis was present. REVIEWER QUERY TEXT: Clarification of Clinical Diagnostic Findings I need to consult with you, the Attending physician, regarding coding uncertain diagnoses. I need to consult with you, the Attending physician, regarding coding uncertain diagnoses. Based on your previous query response: Unable to determine regarding the diagnosis of Sepsis, which i s documented by several other practitioners. Uncertain diagnoses will be coded as if established base d on the official coding guidelines. Shall Sepsis be coded? OR: Disagree The patient's Clinical Indicators include: -- Query created by: Jolene Mei on 06/18/2018 11:41 AM Electronically signed by: Kirill Carrillo 06/23/2018 11:51 AM
== END 2018-06-19 15:55 | DRG 698 ==
LOC: H.ER 23:05 → H.ERHOLD 06-10 02:20 → H.ICU/CCU 06-10 06:45 → H.TEL 06-14 17:19
PROVIDERS: ADMIT Family Medicine; ATTEND Family Medicine
PROC: 06HM33Z Insertion of Infusion Device into Right Femoral Vein, Percutaneous Approach (ICD-10-PCS; principal; 2018-06-10)
PROC: 04HK33Z Insertion of Infusion Device into Right Femoral Artery, Percutaneous Approach (ICD-10-PCS; 2018-06-10)
DX: N13.9 Obstructive and reflux uropathy, unspecified (principal); A41.9 Sepsis, unspecified organism; R65.21 Severe sepsis with septic shock; G93.41 Metabolic encephalopathy; N17.9 Acute kidney failure, unspecified; E87.2 Acidosis; I13.0 Hypertensive heart and chronic kidney disease with heart failure and stage 1 through stage 4 chronic kidney disease, or unspecified chronic kidney disease; D68.9 Coagulation defect, unspecified; N13.6 Pyonephrosis; N39.0 Urinary tract infection, site not specified; I48.2 Chronic atrial fibrillation; E87.5 Hyperkalemia; E11.22 Type 2 diabetes mellitus with diabetic chronic kidney disease; B96.20 Unspecified Escherichia coli [E. coli] as the cause of diseases classified elsewhere; B96.89 Other specified bacterial agents as the cause of diseases classified elsewhere; E03.9 Hypothyroidism, unspecified; E78.00 Pure hypercholesterolemia, unspecified; E86.0 Dehydration; E87.6 Hypokalemia; I25.10 Atherosclerotic heart disease of native coronary artery without angina pectoris; I35.0 Nonrheumatic aortic (valve) stenosis; I95.1 Orthostatic hypotension; K59.00 Constipation, unspecified; N18.9 Chronic kidney disease, unspecified; R13.10 Dysphagia, unspecified; R29.6 Repeated falls; R31.0 Gross hematuria; Z16.12 Extended spectrum beta lactamase (ESBL) resistance; Z79.01 Long term (current) use of anticoagulants; Z79.02 Long term (current) use of antithrombotics/antiplatelets; Z79.82 Long term (current) use of aspirin; Z87.440 Personal history of urinary (tract) infections; Z95.0 Presence of cardiac pacemaker; Z95.5 Presence of coronary angioplasty implant and graft; E05.90 Thyrotoxicosis, unspecified without thyrotoxic crisis or storm; R00.1 Bradycardia, unspecified; Z79.899 Other long term (current) drug therapy; I50.9 Heart failure, unspecified

== ENCOUNTER 2018-06-24 11:41 | Emergency (ER) | payer MEDICARE ==
[2018-06-24 11:41] VITALS: PULSE 60
[2018-06-24 11:44] VITALS: BMI 27.2
[2018-06-24 11:45] VITALS: PULSE 79; TEMP 98
[2018-06-24 13:54] LABS: BASO # 0.1 K/uL (0.0-0.2); BASO % 0.9 % (0.0-2.0); EOS # 0.1 K/uL (0.0-0.7); EOS % 1.2 % (0.0-4.0); HEMOGLOBIN 10.8 g/dL (12.0-18.0); LYMPH % 8.5 % (20.0-40.0); MEAN CELL VOLUME 92.8 fl (80.0-94.0); MEAN CORPUSCULAR HGB CONC 33.4 g/dL (33.0-37.0); MONO # 0.6 K/uL (0.0-0.8); MONO % 5.8 % (0.0-10.0); NEUT # 9.4 K/uL (1.8-7.0); NEUT % 83.6 % (50.0-75.0); PLATELET COUNT 310 K/uL (130-400); RBC 3.49 Mil/uL (4.40-5.90); RED CELL DISTRIBUTION WIDTH 15.3 % (11.5-14.5); WHITE BLOOD COUNT 11.2 K/uL (4.8-10.8)
[2018-06-24 14:01] LABS: VENOUS BLOOD GAS BASE EXCESS 4.5 mmol/L (0.0-2.0); VENOUS BLOOD GAS PCO2 46 mmHg (40-60); VENOUS BLOOD GAS PO2 23 mm/Hg (30-55); VENOUS BLOOD PH 7.42 (7.32-7.43)
[2018-06-24 14:02] LABS: ALB/GLOB RATIO 0.8 (1.0-2.1); ALBUMIN 2.9 g/dL (3.5-5.0); ALT/SGPT 22 U/L (21-72); AST/SGOT 30 U/L (17-59); BLOOD UREA NITROGEN 18 mg/dl (9-20); CALCIUM 8.9 mg/dL (8.4-10.2); GFR NON-AFRICAN AMERICAN > 60
[2018-06-24 15:27] LABS: ANISOCYTOSIS SLIGHT; EOSINOPHIL 2 % (0-7); HYPOCHROMIC SLIGHT; LYMPHOCYTE 9 % (20-50); MONOCYTE 6 % (0-10); NEUTROPHIL 83 % (42-75); OVALOCYTES SLIGHT; PLATELET ESTIMATE NORMAL (NORMAL); TOTAL CELLS COUNTED 100
[2018-06-24 15:28] LABS: LARGE PLATELETS PRESENT
[2018-06-24 15:42] LABS: URINE BACTERIA RARE (<OCC); URINE BILIRUBIN NEGATIVE (NEGATIVE); URINE BLOOD MODERATE (NEGATIVE); URINE CLARITY SLIGHTY-CLOUDY (Clear); URINE COLOR YELLOW (YELLOW); URINE GLUCOSE (UA) NEG (NEGATIVE); URINE LEUKOCYTE ESTERASE LARGE Leu/uL (Negative); URINE PROTEIN 30 mg/dL (NEGATIVE); URINE UROBILINOGEN 0.2-1.0 mg/dL (0.2-1.0)
--- NOTE | 2018-06-24 16:11 | ED PDOC ---
HPI: Male Pain Time Seen by Provider: 06/24/18 11:57 Chief Complaint (Nursing): Male Genitourinary Chief Complaint (Provider): urinary retention History Per: Patient, Other History/Exam Limitations: no limitations Onset/Duration Of Symptoms: Hrs (8) Additional Complaint(s): 82 yo male with history of HTN, kidney failure, urinary retention, CAD and hypothyroid presents for evaluation of urinary retention. PT was seen in ER 2 weeks ago for retnetiuon and UTI. Pt on meropenem for ESBL E.Coli. Pts catheter was removed today and he has not urinated in 8 hours. PT reports suprapubic pain. PT reports eating breakfast as usual. Pt denies fever/chills. PT reports otherwise feeling well. Past Medical History Reviewed: Historical Data, Nursing Documentation, Vital Signs Vital Signs: Last Vital Signs Temp 98 F 06/24/18 11:45 Pulse 79 06/24/18 11:45 Resp 20 06/24/18 11:45 BP 121/76 06/24/18 11:45 Pulse Ox 96 06/24/18 11:45 Primary Care Provider: Nabor Dueñas - Medical History PMH: Atrial Fibrillation, CAD, Cardia Arrhythmia (bradycardia), CHF, HTN, Hypercholesterolemia, Hypothyroidism Denies: HIV, Chronic Kidney Disease - Surgical History Surgical History: Pacemaker, Tonsillectomy - Family History Family History: States: Unknown Family Hx - Living Arrangements Living Arrangements: With Family - Social History Current smoker - smoking cessation education provided: No - Immunization History Hx Tetanus Toxoid Vaccination: No Hx Influenza Vaccination: Yes Hx Pneumococcal Vaccination: Yes - Home Medications Home Medications: Ambulatory Orders Medication Instructions Recorded Ca/D3/Mag#11/Zinc/Ropeman/Todd/Bor 1 tab PO BID 12/29/17 [Caltrate 600+D Plus Tablet] Cyanocobalamin (Vitamin B-12) 250 mcg PO DAILY 12/29/17 [Vitamin B-12] Ergocalciferol (Vitamin D2) 50,000 unit PO MO 12/29/17 [Vitamin D2] Albuterol/Ipratropium [Duoneb 3 3 ml INH RTID neb 05/20/18 mg/0.5 mg (3 ml) UD] Aspirin [Aspirin Chewable] 81 mg PO DAILY chew 05/20/18 Atorvastatin [Lipitor] 20 mg PO DAILY tab 05/20/18 Carvedilol [Coreg] 3.125 mg PO Q12 tab 05/20/18 Clopidogrel [Plavix] 75 mg PO DAILY tab 05/20/18 Digoxin 0.125 mg PO FRI tab 05/20/18 Digoxin 0.125 mg PO MON tab 05/20/18 Digoxin 0.125 mg PO SUN tab 05/20/18 Digoxin 0.125 mg PO TUTH tab 05/20/18 Digoxin [Lanoxin] 0.25 mg PO SAT tab 05/20/18 Levothyroxine [Synthroid] 225 mcg PO DAILY@0630 tab 05/20/18 Lisinopril [Zestril] 2.5 mg PO DAILY tab 05/20/18 Midodrine [Proamatine] 5 mg PO TID tab 05/20/18 Docusate [Colace] 100 mg PO BID cap 06/18/18 Lactulose [Enulose] 20 gm PO DAILY PRN udc 06/18/18 MEROPENEM 500 MG in NS [Merrem IV 500 mg IV Q12 #20 bag 06/18/18 500 MG/NS 50 ML] - Allergies Allergies/Adverse Reactions: Allergies Allergy/AdvReac Type Severity Reaction Status Date / Time No Known Allergies Allergy Unknown RASH Verified 06/09/18 23:08 Review of Systems ROS Statement: Except As Marked, All Systems Reviewed And Found Negative Constitutional: Negative for: Fever, Chills Gastrointestinal: Positive for: Abdominal Pain. Negative for: Nausea, Vomiting, Diarrhea, Rectal Pain Genitourinary Male: Positive for: Other. Negative for: Dysuria, Frequency, Incontinence Physical Exam - Reviewed Nursing Documentation Reviewed: Yes Vital Signs Reviewed: Yes - Physical Exam Appears: Positive for: Well, Non-toxic, No Acute Distress Head Exam: Positive for: ATRAUMATIC, NORMAL INSPECTION, NORMOCEPHALIC Skin: Positive for: Normal Color, Warm, DRY Eye Exam: Positive for: Normal appearance ENT: Positive for: Normal ENT Inspection Neck: Positive for: Normal, Painless ROM Cardiovascular/Chest: Positive for: Regular Rate, Rhythm Respiratory: Positive for: Normal Breath Sounds. Negative for: Accessory Muscle Use, Respiratory Distress Gastrointestinal/Abdominal: Positive for: Normal Exam, Soft, Tenderness (Suprapubic) Back: Positive for: Normal Inspection Extremity: Positive for: Normal ROM Neurological/Psych: Positive for: Awake, Alert, Normal Tone - Laboratory Results Result Diagrams: 06/24/18 13:46 06/24/18 13:46 Lab Results: pO2 23 mm/Hg (30-55) L 06/24/18 13:55 VBG pH 7.42 (7.32-7.43) 06/24/18 13:55 VBG pCO2 46 mmHg (40-60) 06/24/18 13:55 VBG HCO3 26.9 mmol/L 06/24/18 13:55 VBG Total CO2 31.2 mmol/L (22-28) H 06/24/18 13:55 VBG O2 Sat (Calc) 47.9 % (40-65) 06/24/18 13:55 VBG Base Excess 4.5 mmol/L (0.0-2.0) H 06/24/18 13:55 VBG Potassium 4.4 mmol/L (3.6-5.2) 06/24/18 13:55 Sodium 133.0 mmol/L (132-148) 06/24/18 13:55 Chloride 101.0 mmol/L (98-107) 06/24/18 13:55 Glucose 77 mg/dL (75-110) 06/24/18 13:55 Lactate 1.1 mmol/L (0.7-2.1) 06/24/18 13:55 FiO2 21.0 % 06/24/18 13:55 Total Bilirubin 0.7 mg/dl (0.2-1.3) 06/24/18 13:46 AST 30 U/L (17-59) 06/24/18 13:46 ALT 22 U/L (21-72) 06/24/18 13:46 Alkaline Phosphatase 96 U/L (38-126) 06/24/18 13:46 Total Protein 6.6 G/DL (6.3-8.2) 06/24/18 13:46 Albumin 2.9 g/dL (3.5-5.0) L D 06/24/18 13:46 Globulin 3.7 gm/dL (2.2-3.9) 06/24/18 13:46 Albumin/Globulin Ratio 0.8 (1.0-2.1) L 06/24/18 13:46 Urine Color Yellow (YELLOW) 06/24/18 15:20 Urine Clarity Slighty-cloudy (Clear) 06/24/18 15:20 Urine pH 7.0 (5.0-8.0) 06/24/18 15:20 Ur Specific [place] 1.008 (1.003-1.030) 06/24/18 15:20 Urine Protein 30 mg/dL (NEGATIVE) 06/24/18 15:20 Urine Glucose (UA) Neg mg/dL (NEGATIVE) 06/24/18 15:20 Urine Ketones Negative mg/dL (NEGATIVE) 06/24/18 15:20 Urine Blood Moderate (NEGATIVE) 06/24/18 15:20 Urine Nitrate Negative (NEGATIVE) 06/24/18 15:20 Urine Bilirubin Negative (NEGATIVE) 06/24/18 15:20 Urine Urobilinogen 0.2-1.0 mg/dL (0.2-1.0) 06/24/18 15:20 Ur Leukocyte Esterase Large Michael/uL (Negative) 06/24/18 15:20 Urine RBC (Auto) 28 /hpf (0-3) H 06/24/18 15:20 Urine Microscopic WBC 136 /hpf (0-5) H 06/24/18 15:20 Urine Bacteria Rare (<OCC) 06/24/18 15:20 - ECG O2 Sat by Pulse Oximetry: 96 Medical Decision Making Medical Decision Making: WBC improved from yesterday and lactate normal. Anemia which is stable. BUN and creatinine normal. Dong catheter with leg bag placed. PT reports feeling better on re-evaluation. Disposition - Clinical Impression Clinical Impression: UTI (urinary tract infection), Urinary retention - Patient ED Disposition Is Patient to be Admitted: No Counseled Patient/Family Regarding: Diagnosis, Need For Followup - Disposition Disposition: Routine/Home Disposition Time: 15:58 Condition: GOOD Instructions: Urinary Tract Infection, Adult (DC), Dong Catheter, Male
[2018-06-24 19:53] VITALS: BP 125/76; RESP 18; O2SAT 99
== END 2018-06-24 21:08 ==
LOC: H.ER 11:41
DX: N39.0 Urinary tract infection, site not specified (principal); E03.9 Hypothyroidism, unspecified; E78.00 Pure hypercholesterolemia, unspecified; I11.0 Hypertensive heart disease with heart failure; Z95.0 Presence of cardiac pacemaker

== ENCOUNTER 2018-07-07 14:48 | Observation (INO) | payer MEDICARE ==
[2018-07-07 14:49] VITALS: PULSE 60; BMI 27.2
[2018-07-07] MEDS ORDERED: Sodium Chloride 0.9% 1,000 ML IV STA (15:04)
--- NOTE | 2018-07-07 15:16 | ED PDOC ---
HPI: CCC, URI, Sore Throat Time Seen by Provider: 07/07/18 14:56 Chief Complaint (Nursing): Abnormal Labs Chief Complaint (Provider): Abnormal Labs History Per: Patient History/Exam Limitations: no limitations Onset/Duration Of Symptoms: Days (x 1) Current Symptoms Are (Timing): Still Present Location Of Pain: None Associated Symptoms: Cough, Nasal Congestion Additional Complaint(s): 83 year old male with a history of ESRD and HTN presents to the ED for evaluation of cough, congestion and abnormal labs. Patient was transferred to the ED from [facility] due to abnormal labs today. He has been receiving IV Invanz for gram negative rods in his urine. Denies fever, shortness of breath and chest pain. PMD: none provided Past Medical History Reviewed: Historical Data, Nursing Documentation, Vital Signs Vital Signs: Last Vital Signs Temp 98.7 F 07/07/18 14:52 Pulse 84 07/07/18 14:52 Resp 18 07/07/18 14:52 BP 137/74 07/07/18 14:52 Pulse Ox 95 07/07/18 14:52 Primary Care Provider: Non [facility] Provider, - Medical History PMH: Atrial Fibrillation, CAD, Cardia Arrhythmia (bradycardia), CHF, HTN, Hypercholesterolemia, Hypothyroidism Denies: HIV, Chronic Kidney Disease - Surgical History Surgical History: Pacemaker, Tonsillectomy - Family History Family History: States: Unknown Family Hx - Immunization History Hx Tetanus Toxoid Vaccination: No Hx Influenza Vaccination: Yes Hx Pneumococcal Vaccination: Yes - Home Medications Home Medications: Ambulatory Orders Medication Instructions Recorded Cyanocobalamin (Vitamin B-12) 250 mcg PO DAILY 12/29/17 [Vitamin B-12] Ergocalciferol (Vitamin D2) 50,000 unit PO MO 12/29/17 [Vitamin D2] Albuterol/Ipratropium [Duoneb 3 3 ml INH RTID neb 05/20/18 mg/0.5 mg (3 ml) UD] Aspirin [Aspirin Chewable] 81 mg PO DAILY chew 05/20/18 Carvedilol [Coreg] 3.125 mg PO Q12 tab 05/20/18 Clopidogrel [Plavix] 75 mg PO DAILY tab 05/20/18 Digoxin [Lanoxin] 0.25 mg PO SAT tab 05/20/18 Levothyroxine [Synthroid] 225 mcg PO DAILY@0630 tab 05/20/18 Lisinopril [Zestril] 2.5 mg PO DAILY tab 05/20/18 Midodrine [Proamatine] 5 mg PO TID tab 05/20/18 Docusate [Colace] 100 mg PO BID cap 06/18/18 Acetaminophen [Tylenol 325mg tab] 650 mg PO Q4 PRN 07/07/18 Acetaminophen [Tylenol 325mg tab] 650 mg PO Q4 PRN 07/07/18 Atorvastatin [Lipitor] 20 mg PO HS 07/07/18 Bisacodyl [Dulcolax] 10 mg RC DAILY PRN 07/07/18 Calcium Carbonate/Vitamin D3 1 tab PO BID 07/07/18 [Caltrate 600 Plus D3 Tablet] Digoxin 0.125 mg PO SUMOTUTHFR 07/07/18 Ertapenem [Invanz] 1 gm IV DAILY 07/07/18 Finasteride [Proscar] 5 mg PO DAILY 07/07/18 Lactulose [Enulose] 20 gm PO DAILY 07/07/18 Magnesium Hydroxide [Milk Of 30 ml PO HS PRN 07/07/18 Magnesia] - Allergies Allergies/Adverse Reactions: Allergies Allergy/AdvReac Type Severity Reaction Status Date / Time No Known Allergies Allergy Unknown RASH Verified 07/07/18 14:56 Review of Systems ROS Statement: Except As Marked, All Systems Reviewed And Found Negative Constitutional: Negative for: Fever, Chills ENT: Positive for: Nose Congestion Cardiovascular: Negative for: Chest Pain Respiratory: Positive for: Cough. Negative for: Shortness of Breath Physical Exam - Reviewed Nursing Documentation Reviewed: Yes Vital Signs Reviewed: Yes - Physical Exam Appears: Positive for: No Acute Distress Head Exam: Positive for: ATRAUMATIC, NORMAL INSPECTION, NORMOCEPHALIC Skin: Positive for: Normal Color, Warm, Dry Eye Exam: Positive for: EOMI, Normal appearance, PERRL Neck: Positive for: Normal, Painless ROM, Supple Cardiovascular/Chest: Positive for: Regular Rate, Rhythm. Negative for: Murmur Respiratory: Positive for: Rhonchi (bilateral). Negative for: Wheezing, Respiratory Distress Gastrointestinal/Abdominal: Positive for: Normal Exam, Soft. Negative for: Tenderness Extremity: Positive for: Pedal Edema (chronic venous stasis changes; 1+ edema to bilateral lower extremities). Negative for: Other (erytnema or drainage) Neurological/Psych: Positive for: Awake, Alert, Normal Tone, Oriented (x 2). Negative for: Motor/Sensory Deficits - Laboratory Results Result Diagrams: 07/07/18 15:35 07/07/18 15:35 - ECG O2 Sat by Pulse Oximetry: 95 (RA) Pulse Ox Interpretation: Normal Medical Decision Making Medical Decision Makin:02 MDM: --VBG --EKG --CMP --CBC --CR --Digoxin levels --NS IV 1,000 mls --Blood cx --Urine cx --UA ------- Scribe Attestation: Documented by Jennifer Johnson, acting as a scribe for Nabeel Llamas MD Pt still with UTI despite being on Invanz. Does not meet criteria for sepsis. Urine C&S from [facility] shows sensitivity to Zosyn Provider Scribe Attestation: All medical record entries made by the Scribe were at my direction and personally dictated by me. I have reviewed the chart and agree that the record accurately reflects my personal performance of the history, physical exam, medical decision making, and the department course for this patient. I have also personally directed, reviewed, and agree with the discharge instructions and disposition. Disposition - Clinical Impression Clinical Impression: UTI (urinary tract infection) - Patient ED Disposition Is Patient to be Admitted: Yes - Disposition Disposition Time: 16:53 Condition: FAIR Forms: CallMD (Yoruba) - Pt Status Changed To: Hospital Disposition Of: Inpatient - Admit Certification Admit to Inpatient:: After my assessment, the patient will require hospital ization for at least two midnights. This is because of the severity of symptoms shown, intensity of services needed, and/or the medical risk in this patient being treated as an outpatient. - POA Present On Arrival: None
[2018-07-07 15:40] LABS: BASO % 0.5 % (0.0-2.0); EOS # 0.2 K/uL (0.0-0.7); EOS % 1.6 % (0.0-4.0); HEMOGLOBIN 9.7 g/dL (12.0-18.0); LYMPH # 1.7 K/uL (1.0-4.3); LYMPH % 17.1 % (20.0-40.0); MEAN CORPUSCULAR HEMOGLOBIN 31.3 pg (27.0-31.0); MEAN CORPUSCULAR HGB CONC 33.3 g/dL (33.0-37.0); MEAN PLATELET VOLUME 7.6 fl (7.2-11.7); MONO # 0.8 K/uL (0.0-0.8); MONO % 8.3 % (0.0-10.0); NEUT # 7.3 K/uL (1.8-7.0); NEUT % 72.5 % (50.0-75.0); NRBC % 0.1 % (0.0-0.0); RBC 3.08 Mil/uL (4.40-5.90); WHITE BLOOD COUNT 10.1 K/uL (4.8-10.8)
[2018-07-07 15:54] LABS: VENOUS BLOOD GAS BASE EXCESS 5.2 mmol/L (0.0-2.0); VENOUS BLOOD GAS PCO2 59 mmHg (40-60); VENOUS BLOOD GAS PO2 23 mm/Hg (30-55); VENOUS BLOOD PH 7.35 (7.32-7.43)
--- NOTE | 2018-07-07 15:55 | RAD ---
Date of service: 07/07/2018 HISTORY: cough COMPARISON: 06/11/2018 TECHNIQUE: 1 view obtained. FINDINGS: LUNGS: The faint opacity over the inferior tip of the right glenoid and lateral right mid lung zone is not significantly changed. No worsening or dense consolidation suggested.. PLEURA: Small bilateral pleural effusions are suspect. There is trace blunting of each costophrenic angle the left is similar. That on the right likely increased in conspicuity compared to prior recent studies. No pneumothorax appreciated. CARDIOVASCULAR: There is presence of aortic atherosclerotic calcification on x-ray. Cardiomegaly-similar. An element of minimal/-mild pulmonary venous congestion is possible-no change in this appearance perceived. Single lead pacemaker device in place. OSSEOUS STRUCTURES: Thoracic spondylosis similar. Bilateral shoulder arthrosis. VISUALIZED UPPER ABDOMEN: Normal. OTHER FINDINGS: None. IMPRESSION: Small bilateral pleural effusions that on the right is probably increased in conspicuity. No moderate pleural effusions. No interval dense consolidation. Lateral right mid lung zone minimal pleural parenchymal opacities appearing similar some contiguous right pleural thickening reaction here a consideration. No interval change perceived. Cardiomegaly and mild pulmonary venous congestion inferred.
[2018-07-07 16:05] LABS: ALB/GLOB RATIO 0.8 (1.0-2.1); ALBUMIN 2.9 g/dL (3.5-5.0); ALT/SGPT 18 U/L (21-72); AST/SGOT 21 U/L (17-59); BLOOD UREA NITROGEN 16 mg/dl (9-20); CALCIUM 8.5 mg/dL (8.4-10.2); GFR NON-AFRICAN AMERICAN > 60
[2018-07-07 16:42] LABS: URINE BACTERIA MOD (<OCC); URINE BILIRUBIN NEGATIVE (NEGATIVE); URINE BLOOD MODERATE (NEGATIVE); URINE CLARITY TURBID (Clear); URINE COLOR YELLOW (YELLOW); URINE GLUCOSE (UA) NEG (NEGATIVE); URINE LEUKOCYTE ESTERASE LARGE Leu/uL (Negative); URINE PROTEIN 30 mg/dL (NEGATIVE); URINE UROBILINOGEN 0.2-1.0 mg/dL (0.2-1.0); WBC CLUMPS MANY /hpf
[2018-07-07] MEDS ORDERED: Piperacillin/Tazobact 3.375 GM in Sodium Chloride 0.9% 100 ML IVPB STA (16:51)
[2018-07-07] MEDS ORDERED: Piperacillin/Tazobact 3.375 gm Inj IVPB ONE (18:20)
[2018-07-07] MEDS ORDERED: Magnesium Hydroxide Susp 30 ml UD PO PRN (19:08)
[2018-07-07] MEDS: Albuterol-Ipratrop 3 mg / 0.5 (3 ml) UD INH SCH (20:21)
--- NOTE | 2018-07-07 20:59 | CP.PCM.PN ---
Subjective - Date & Time of Evaluation Date of Evaluation: 07/07/18 Time of Evaluation: 20:52 - Subjective Subjective: I D NOTE PATIENT IS WELL KNOWN TO ME PATIENT HAS CHRONIC ESBL E.COLI UTI HAVE STARTED MEROPENEM Objective - Vital Signs/Intake and Output Vital Signs (last 24 hours): Temp Pulse Resp BP Pulse Ox 97.8 F 64 18 111/68 89 L 07/07/18 19:04 07/07/18 20:25 07/07/18 19:04 07/07/18 19:04 07/07/18 19:04 Intake and Output: 07/07/18 07/08/18 18:59 06:59 Output Total 350 Balance -350 - Medications Medications: Current Medications Acetaminophen (Tylenol 325mg Tab) 650 mg PO Q4 PRN PRN Reason: Temp 101 and above Acetaminophen (Tylenol 325mg Tab) 650 mg PO Q4 PRN PRN Reason: Pain, Mild (1-3) Albuterol/Ipratropium (Duoneb 3 Mg/0.5 Mg (3 Ml) Ud) 3 ml INH RTID BRIAN Last Admin: 07/07/18 20:21 Dose: 3 ml Aspirin (Aspirin Chewable) 81 mg PO DAILY [facility] Atorvastatin Calcium (Lipitor) 20 mg PO HS [facility] Bisacodyl (Dulcolax) 10 mg RC DAILY PRN PRN Reason: No bowel movement x 3 days Carvedilol (Coreg) 3.125 mg PO Q12 [facility] Clopidogrel Bisulfate (Plavix) 75 mg PO DAILY [facility] Cyanocobalamin (Vitamin B-12) 250 mcg PO DAILY [facility] Digoxin (Digoxin) 0.125 mg PO SUMOTUTHFR [facility] Digoxin (Lanoxin) 0.25 mg PO SAT [facility] Docusate Sodium (Colace) 100 mg PO BID [facility] Ergocalciferol (Drisdol 50,000 Intl Units Cap) 1 cap PO MO BRIAN Finasteride (Proscar) 5 mg PO DAILY [facility] Home Med (Calcium Carbonate/Vitamin D3 [Caltrate 600 Plus D3 Tablet]) 1 tab PO BID [facility] Sodium Chloride (Sodium Chloride 0.9%) 1,000 mls @ 100 mls/hr IV .Q10H STA Stop: 07/08/18 01:03 Last Admin: 07/07/18 15:59 Dose: 100 mls/hr Meropenem 500 mg/ Sodium (Chloride) 100 mls @ 100 mls/hr IVPB Q12 BRIAN; Protocol Lactulose (Enulose) 20 gm PO DAILY [facility]RIAN Levothyroxine Sodium (Synthroid) 225 mcg PO DAILY@0630 [facility]AN Lisinopril (Zestril) 2.5 mg PO DAILY [facility] Magnesium Hydroxide (Milk Of Magnesia) 30 ml PO HS PRN PRN Reason: No bowel movement x 2 days Midodrine (Proamatine) 5 mg PO TID BRIAN - Labs Labs: 07/07/18 15:35 07/07/18 15:35
[2018-07-07] MEDS ORDERED: Meropenem 500 MG in Sodium Chloride 0.9% 100 ML IVPB SCH (21:00)
[2018-07-07] MEDS: Meropenem 1 GM in Sodium Chloride 0.9% 100 ML IVPB SCH (21:46)
--- NOTE | 2018-07-07 23:42 | CP.PCM.HP ---
History of Present Illness - History of Present Illness History of Present Illness: This is an 83 y/o male admitted for persistent UTI despite use of Invanz.. He was noted to have ESBL in the last hospitalization and was sent to [facility] for Phsy therapy and IV antibiotics. Medical Hx HTn Hypothyroidsim atrial fibrilalltion Present on Admission - Present on Admission Any Indicators Present on Admission: No History of DVT/PE: No History of Uncontrolled Diabetes: No Urinary Catheter: No Decubitus Ulcer Present: No Past Patient History - Past Medical History & Family History Past Medical History?: Yes - Past Social History Smoking Status: Never Smoked - CARDIAC Hx Atrial Fibrillation: Yes Hx Cardia Arrhythmia: Yes (bradycardia) Hx Congestive Heart Failure: Yes Hx Hypercholesterolemia: Yes Hx Hypertension: Yes Hx Pacemaker: Yes - PULMONARY Hx Respiratory Disorders: No - NEUROLOGICAL Hx Neurological Disorder: No - HEENT Hx HEENT Problems: No - RENAL Hx Chronic Kidney Disease: No - ENDOCRINE/METABOLIC Hx Hypothyroidism: Yes - HEMATOLOGICAL/ONCOLOGICAL Hx Human Immunodeficiency Virus (HIV): No - INTEGUMENTARY Hx Dermatological Problems: No Hx Cellulitis: Yes - MUSCULOSKELETAL/RHEUMATOLOGICAL Hx Musculoskeletal Disorders: Yes Hx Falls: Yes - GASTROINTESTINAL Hx Gastrointestinal Disorders: No - GENITOURINARY/GYNECOLOGICAL Hx Hematuria: Yes Hx Prostate Problems: Yes Hx Urinary Tract Infection: Yes Other/Comment: with 2wfc - PSYCHIATRIC Hx Psychophysiologic Disorder: No Hx Emotional Abuse: No Hx Physical Abuse: No Hx Substance Use: No - SURGICAL HISTORY Hx Tonsillectomy: Yes - ANESTHESIA Hx Anesthesia: Yes Hx Anesthesia Reactions: No Hx Malignant Hyperthermia: No Meds Home Medications: Home Medication List Medication Instructions Recorded Confirmed Type Meropenem [Merrem IV] 1 gm IVPB Q12 #24 vial 07/09/18 Rx Tamsulosin [Flomax] 0.4 mg PO DAILY #30 cap 07/09/18 Rx Allergies/Adverse Reactions: Allergies Allergy/AdvReac Type Severity Reaction Status Date / Time No Known Allergies Allergy Unknown RASH Verified 07/07/18 14:56 Physical Exam - Eye Exam Eye Exam: PERRL - ENT Exam ENT Exam: Mucous Membranes Moist - Neurological Exam Neurological exam: CN II-XII Intact Results - Vital Signs Recent Vital Signs: Last Vital Signs Temp 97.8 F 07/07/18 19:04 Pulse 65 07/07/18 21:46 Resp 18 07/07/18 19:04 BP 123/73 07/07/18 21:46 Pulse Ox 89 L 07/07/18 19:04 - Labs Result Diagrams: 07/07/18 15:35 07/07/18 15:35 Labs: Laboratory Results - last 24 hr 07/07/18 07/07/18 07/07/18 15:27 15:35 15:35 WBC 10.1 RBC 3.08 L Hgb 9.7 L Hct 29.0 L MCV 94.0 MCH 31.3 H MCHC 33.3 RDW 16.0 H Plt Count 263 MPV 7.6 Neut % (Auto) 72.5 Lymph % (Auto) 17.1 L [place] % (Auto) 8.3 Eos % (Auto) 1.6 Baso % (Auto) 0.5 Neut # (Auto) 7.3 H Lymph # (Auto) 1.7 [place] # (Auto) 0.8 Eos # (Auto) 0.2 Baso # (Auto) 0.0 pO2 VBG pH VBG pCO2 VBG HCO3 VBG Total CO2 VBG O2 Sat (Calc) VBG Base Excess VBG Potassium Glucose Lactate FiO2 Sodium 135 Potassium 4.6 Chloride 100 Carbon Dioxide 28 Anion Gap 12 BUN 16 Creatinine 0.7 L Est GFR ( Amer) > 60 Est GFR (Non-Af Amer) > 60 POC Glucose (mg/dL) 90 Random Glucose 84 Calcium 8.5 Total Bilirubin 0.4 AST 21 ALT 18 L Alkaline Phosphatase 102 Total Protein 6.5 Albumin 2.9 L Globulin 3.6 Albumin/Globulin Ratio 0.8 L Venous Blood Potassium Urine Color Urine Clarity Urine pH Ur Specific [place] Urine Protein Urine Glucose (UA) Urine Ketones Urine Blood Urine Nitrate Urine Bilirubin Urine Urobilinogen Ur Leukocyte Esterase Urine RBC (Auto) Urine WBC Clumps (Auto) Urine Microscopic WBC Urine Bacteria Urine Yeast (Budding) Digoxin 07/07/18 07/07/18 07/07/18 15:35 15:41 16:12 WBC RBC Hgb Hct MCV MCH MCHC RDW Plt Count MPV Neut % (Auto) Lymph % (Auto) [place] % (Auto) Eos % (Auto) Baso % (Auto) Neut # (Auto) Lymph # (Auto) [place] # (Auto) Eos # (Auto) Baso # (Auto) pO2 23 L VBG pH 7.35 VBG pCO2 59 VBG HCO3 27.3 VBG Total CO2 34.4 H VBG O2 Sat (Calc) 41.8 VBG Base Excess 5.2 H VBG Potassium 4.5 Glucose 83 Lactate 1.4 FiO2 21.0 Sodium 135.0 Potassium Chloride 102.0 Carbon Dioxide Anion Gap BUN Creatinine Est GFR ( Amer) Est GFR (Non-Af Amer) POC Glucose (mg/dL) Random Glucose Calcium Total Bilirubin AST ALT Alkaline Phosphatase Total Protein Albumin Globulin Albumin/Globulin Ratio Venous Blood Potassium 4.5 Urine Color Yellow Urine Clarity Turbid Urine pH 7.0 Ur Specific [place] 1.009 Urine Protein 30 Urine Glucose (UA) Neg Urine Ketones Negative Urine Blood Moderate Urine Nitrate Negative Urine Bilirubin Negative Urine Urobilinogen 0.2-1.0 Ur Leukocyte Esterase Large Urine RBC (Auto) 53 H Urine WBC Clumps (Auto) Many H Urine Microscopic WBC 1240 H Urine Bacteria Mod H Urine Yeast (Budding) Mod H Digoxin 1.0 Assessment & Plan (1) ESBL (extended spectrum beta-lactamase) producing bacteria infection Status: Acute (2) UTI (urinary tract infection) Status: Acute Priority: High (3) Atrial fibrillation Status: Chronic (4) Hypothyroidism Status: Chronic Priority: Medium - Assessment and Plan (Free Text) Plan: Cont meds Cont tx Discussed with ID start IV antibiotics PICC line check cbc cmp
[2018-07-08] MEDS: Levothyroxine 75 MCG TAB PO SCH (05:51)
[2018-07-08 06:55] LABS: INR 1.3; PROTHROMBIN TIME 14.9 Seconds (9.8-13.1)
[2018-07-08 06:58] LABS: PARTIAL THROMBOPLASTIN TIME 33.6 Seconds (25.6-37.1)
[2018-07-08] MEDS: Albuterol-Ipratrop 3 mg / 0.5 (3 ml) UD INH SCH ×3 (07:01→19:03)
[2018-07-08] MEDS: Meropenem 1 GM in Sodium Chloride 0.9% 100 ML IVPB SCH ×2 (09:34→20:31)
[2018-07-08] MEDS: Calcium-Vit D 500 mg-200 Units Tab UD PO SCH ×2 (09:35→17:16)
[2018-07-08] MEDS: CYANOCOBALAMIN (VITAMIN B-12) 250 MCG TABLET PO SCH (09:37)
[2018-07-08] MEDS: Proshield Plus GEL TOP SCH ×2 (12:31→17:17)
[2018-07-08] MEDS ORDERED: Lidocaine Hydrochloride 5 ML INJ ONE (15:33)
--- NOTE | 2018-07-08 16:02 | PCM.SURG1 ---
Surgeon's Initial Post Op Note - Surgeon's Notes Surgeon: Melly [employer] Manager: None Type of Anesthesia: Local Pre-Operative Diagnosis: IV access Operative Findings: Patent right brachial vein Post-Operative Diagnosis: IV access Operation Performed: Right brachial vein 4F 35cm SL PICC placed with the tip n the prox RA Specimen/Specimens Removed: None Estimated Blood Loss: EBL {In ML}: 1 Date of Surgery/Procedure: 07/08/18 Time of Surgery/Procedure: 15:40
--- NOTE | 2018-07-08 17:36 | CARD ---
APPROVED REPORT Date of service: 07/07/2018 EKG Measurement Heart [id number] <Conclusion> Ventricular-paced rhythm Abnormal ECG
[2018-07-08] MEDS ORDERED: Digoxin 125 mcg (0.125 mg) Tab PO SCH (19:08)
[2018-07-09] MEDS: Proshield Plus GEL TOP SCH ×2 (01:24→08:54)
[2018-07-09] MEDS: Levothyroxine 75 MCG TAB PO SCH (05:45)
[2018-07-09] MEDS: Albuterol-Ipratrop 3 mg / 0.5 (3 ml) UD INH SCH (08:08)
[2018-07-09 08:14] VITALS: BP 126/81; PULSE 61; RESP 19; TEMP 97.5; O2SAT 99
[2018-07-09] MEDS: Meropenem 1 GM in Sodium Chloride 0.9% 100 ML IVPB SCH (08:52)
[2018-07-09] MEDS: CYANOCOBALAMIN (VITAMIN B-12) 250 MCG TABLET PO SCH (08:54)
--- NOTE | 2018-07-09 09:04 | CP.PCM.PN ---
Subjective - Date & Time of Evaluation Date of Evaluation: 07/09/18 Time of Evaluation: 08:55 - Subjective Subjective: I D NOTE URINE CULTURE:ESBL,E.COLI THAT CAN BE CONSIDERED MDRSENSITIVE TO MEROPENEM WHICH SHOULD BE CONTINUED Objective - Vital Signs/Intake and Output Vital Signs (last 24 hours): Temp Pulse Resp BP Pulse Ox 97.5 F L 61 19 126/81 99 07/09/18 08:14 07/09/18 08:55 07/09/18 08:14 07/09/18 08:55 07/09/18 08:14 Intake and Output: 07/09/18 07/09/18 06:59 18:59 Output Total 100 Balance -100 - Medications Medications: Current Medications Acetaminophen (Tylenol 325mg Tab) 650 mg PO Q4 PRN PRN Reason: Temp 101 and above Acetaminophen (Tylenol 325mg Tab) 650 mg PO Q4 PRN PRN Reason: Pain, Mild (1-3) Albuterol/Ipratropium (Duoneb 3 Mg/0.5 Mg (3 Ml) Ud) 3 ml INH RTID [facility] Last Admin: 07/09/18 08:08 Dose: 3 ml Aspirin (Aspirin Chewable) 81 mg PO DAILY [facility] Last Admin: 07/09/18 08:51 Dose: 81 mg Atorvastatin Calcium (Lipitor) 20 mg PO HS [facility] Last Admin: 07/08/18 21:20 Dose: 20 mg Bisacodyl (Dulcolax) 10 mg RC DAILY PRN PRN Reason: No bowel movement x 3 days Calcium/Vitamin D (Oyster Shell Calcium/Vitamin D 500 Mg-200 Iu) 1 tab PO BID [facility] Last Admin: 07/08/18 17:16 Dose: 1 tab Carvedilol (Coreg) 3.125 mg PO Q12 [facility] Last Admin: 07/09/18 08:51 Dose: 3.125 mg Clopidogrel Bisulfate (Plavix) 75 mg PO DAILY [facility] Last Admin: 07/09/18 08:54 Dose: 75 mg Cyanocobalamin (Vitamin B-12) 250 mcg PO DAILY [facility] Last Admin: 07/09/18 08:54 Dose: 250 mcg Digoxin (Digoxin) 0.125 mg PO SUMOTUTHFR [facility] Last Admin: 07/08/18 19:31 Dose: 0.125 mg Digoxin (Lanoxin) 0.25 mg PO SAT [facility] Dimethicone (Proshield Plus Skin Protectant) 1 applic TOP Q8 [facility] Last Admin: 07/09/18 08:54 Dose: 1 applic Docusate Sodium (Colace) 100 mg PO BID [facility] Last Admin: 07/09/18 08:51 Dose: 100 mg Ergocalciferol (Drisdol 50,000 Intl Units Cap) 1 cap PO MO [facility] Finasteride (Proscar) 5 mg PO DAILY [facility] Last Admin: 07/09/18 08:54 Dose: 5 mg Meropenem 1 gm/ Sodium (Chloride) 100 mls @ 100 mls/hr IVPB Q12H [facility]; Protocol Last Admin: 07/09/18 08:52 Dose: 100 mls/hr Lactulose (Enulose) 20 gm PO DAILY [facility] Last Admin: 07/09/18 08:52 Dose: 20 gm Levothyroxine Sodium (Synthroid) 225 mcg PO DAILY@0630 [facility] Last Admin: 07/09/18 05:45 Dose: 225 mcg Lisinopril (Zestril) 2.5 mg PO DAILY [facility] Last Admin: 07/09/18 08:55 Dose: 2.5 mg Magnesium Hydroxide (Milk Of Magnesia) 30 ml PO HS PRN PRN Reason: No bowel movement x 2 days Midodrine (Proamatine) 5 mg PO TID [facility] Last Admin: 07/09/18 08:53 Dose: 5 mg - Labs Labs: 07/07/18 15:35 07/07/18 15:35 PT 14.9 Seconds (9.8-13.1) H 07/08/18 06:05 INR 1.3 07/08/18 06:05 APTT 33.6 Seconds (25.6-37.1) 07/08/18 06:05
[2018-07-09] MEDS: Calcium-Vit D 500 mg-200 Units Tab UD PO SCH (09:35)
--- NOTE | 2018-07-09 11:38 | CP.PCM.PCO ---
Assessment/Plan - Assessment/Plan Assessment (Free Text): Pt stable, offers no complains, wants to go back to [facility]. Spoke to Dr. Bryan, sibley catheter to stay in for now since pt has active infection. Trial of void should be attempted after infection clears up. Dr. Dueñas aware, pt will be followed by Dr. Redmond in [place] for continuation of care. Pt seen and cleared for d/c back to [place] by Dr. Dueñas to continue IV abx for min of 12 more days Pt and RN aware of plan - Consults Consult Orders: Consultations 07/08/18 00:15 Case Management Referral Routine Comment: Physician Instructions: [facility] Reason for Referral: Discharge Planning Nursing Referral for Wound Care Routine Comment: Physician Instructions: Reason For Exam: sacral decubiti Social Work [facility]ine [facility] Phys[facility] Instructions: Reason For Exam: discharge planning
--- NOTE | 2018-07-09 12:17 | CP.PCM.PN ---
Subjective - Date & Time of Evaluation Date of Evaluation: 07/09/18 Time of Evaluation: 12:14 - Subjective Subjective: Pt with sibley because of urinary retention on last admission with sibley pt is still undergoing Rx for ristant ecoli infection.Suggest add flomax to proscar give voiding trial on last day of antibiotic RX. Thanks Randi Objective - Vital Signs/Intake and Output Vital Signs (last 24 hours): Temp Pulse Resp BP Pulse Ox 97.5 F L 61 19 126/81 99 07/09/18 08:14 07/09/18 08:55 07/09/18 08:14 07/09/18 08:55 07/09/18 08:14 Intake and Output: 07/09/18 07/09/18 06:59 18:59 Output Total 100 Balance -100 - Medications Medications: Current Medications Acetaminophen (Tylenol 325mg Tab) 650 mg PO Q4 PRN PRN Reason: Temp 101 and above Acetaminophen (Tylenol 325mg Tab) 650 mg PO Q4 PRN PRN Reason: Pain, Mild (1-3) Albuterol/Ipratropium (Duoneb 3 Mg/0.5 Mg (3 Ml) Ud) 3 ml INH RTID [facility] Last Admin: 07/09/18 08:08 Dose: 3 ml Aspirin (Aspirin Chewable) 81 mg PO DAILY [facility] Last Admin: 07/09/18 08:51 Dose: 81 mg Atorvastatin Calcium (Lipitor) 20 mg PO HS [facility] Last Admin: 07/08/18 21:20 Dose: 20 mg Bisacodyl (Dulcolax) 10 mg RC DAILY PRN PRN Reason: No bowel movement x 3 days Calcium/Vitamin D (Oyster Shell Calcium/Vitamin D 500 Mg-200 Iu) 1 tab PO BID [facility] Last Admin: 07/09/18 09:35 Dose: 1 tab Carvedilol (Coreg) 3.125 mg PO Q12 [facility] Last Admin: 07/09/18 08:51 Dose: 3.125 mg Clopidogrel Bisulfate (Plavix) 75 mg PO DAILY [facility] Last Admin: 07/09/18 08:54 Dose: 75 mg Cyanocobalamin (Vitamin B-12) 250 mcg PO DAILY [facility] Last Admin: 07/09/18 08:54 Dose: 250 mcg Digoxin (Digoxin) 0.125 mg PO SUMOTUTHFR [facility] Last Admin: 07/08/18 19:31 Dose: 0.125 mg Digoxin (Lanoxin) 0.25 mg PO SAT [facility] Dimethicone (Proshield Plus Skin Protectant) 1 applic TOP Q8 [facility] Last Admin: 07/09/18 08:54 Dose: 1 applic Docusate Sodium (Colace) 100 mg PO BID [facility] Last Admin: 07/09/18 08:51 Dose: 100 mg Ergocalciferol (Drisdol 50,000 Intl Units Cap) 1 cap PO MO [facility] Finasteride (Proscar) 5 mg PO DAILY [facility] Last Admin: 07/09/18 08:54 Dose: 5 mg Meropenem 1 gm/ Sodium (Chloride) 100 mls @ 100 mls/hr IVPB Q12H [facility]; Protocol Last Admin: 07/09/18 08:52 Dose: 100 mls/hr Lactulose (Enulose) 20 gm PO DAILY [facility] Last Admin: 07/09/18 08:52 Dose: 20 gm Levothyroxine Sodium (Synthroid) 225 mcg PO DAILY@0630 [facility] Last Admin: 07/09/18 05:45 Dose: 225 mcg Lisinopril (Zestril) 2.5 mg PO DAILY [facility] Last Admin: 07/09/18 08:55 Dose: 2.5 mg Magnesium Hydroxide (Milk Of Magnesia) 30 ml PO HS PRN PRN Reason: No bowel movement x 2 days Midodrine (Proamatine) 5 mg PO TID [facility] Last Admin: 07/09/18 08:53 Dose: 5 mg - Labs Labs: 07/07/18 15:35 07/07/18 15:35 PT 14.9 Seconds (9.8-13.1) H 07/08/18 06:05 INR 1.3 07/08/18 06:05 APTT 33.6 Seconds (25.6-37.1) 07/08/18 06:05
[2018-07-10] MEDS ORDERED: Digoxin 250 mcg (0.25 mg) Tab PO SCH (09:00)
--- NOTE | 2018-07-11 02:07 | CP.PCM.PN ---
Subjective - Date & Time of Evaluation Date of Evaluation: 07/08/18 Time of Evaluation: 11:00 - Subjective Subjective: Patient remains stable. Has no chest pain or SOB. Hgb 9.7 Objective - Vital Signs/Intake and Output Vital Signs (last 24 hours): Temp Pulse Resp BP Pulse Ox 97.5 F L 61 19 126/81 99 07/09/18 08:14 07/09/18 08:55 07/09/18 08:14 07/09/18 08:55 07/09/18 08:14 - Labs Labs: 07/07/18 15:35 07/07/18 15:35 PT 14.9 Seconds (9.8-13.1) H 07/08/18 06:05 INR 1.3 07/08/18 06:05 APTT 33.6 Seconds (25.6-37.1) 07/08/18 06:05 - Head Exam Head Exam: NORMAL INSPECTION - Eye Exam Eye Exam: Normal appearance - ENT Exam ENT Exam: Mucous Membranes Moist - Respiratory Exam Respiratory Exam: Clear to Ausculation Bilateral - Cardiovascular Exam Cardiovascular Exam: Irregular Rhythm - GI/Abdominal Exam GI & Abdominal Exam: Normal Bowel Sounds Assessment and Plan (1) Urinary tract infection Status: Acute (2) Chronic a-fib Status: Acute (3) Hematuria Status: Acute (4) Hypothyroidism Status: Chronic - Assessment and Plan (Free Text) Plan: Cont meds Cont tx Cont IV antibiotics
--- NOTE | 2018-07-11 02:25 | CP.PCM.DIS ---
Provider - Provider Date of Admission: 07/07/18 16:54 Attending physician: Nabor Dueñas MD Consults: 07/07/18 19:12 Infectious Disease Consult Routine Comment: Consulting Provider: Brandon Vazquez Consulting Physician: Brandon Vazquez Reason for Consult: recurrent UTI 07/08/18 00:15 Case Management Referral Routine Comment: Physician Instructions: Reason For Exam: from [facility] Reason for Referral: Discharge Planning Nursing Referral for Wound Care Routine Comment: Physician Instructions: Reason For Exam: sacral decubiti Social Work Referral Routine Comment: from [facility] Physician Instructions: Reason For Exam: discharge planning 07/08/18 11:36 Urology Consult Routine Comment: Consulting Provider: Jason Bryan Jr. Consulting Physician: Jason Bryan Jr. 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 if sibley can be removed Time Spent in preparation of Discharge (in minutes): 30 Diagnosis - Discharge Diagnosis (1) ESBL (extended spectrum beta-lactamase) producing bacteria infection Status: Acute (2) UTI (urinary tract infection) Status: Acute Priority: High (3) Atrial fibrillation Status: Chronic (4) Hypothyroidism Status: Chronic Priority: Medium Hospital Course - Lab Results Lab Results: Micro Results 07/07/18 15:40 Blood-Venous Blood Culture - Preliminary NO GROWTH AFTER 3 DAYS 07/07/18 15:40 Urine,Sibley Urine Culture - Final Escherichia Coli Most Recent Lab Values WBC 10.1 K/uL (4.8-10.8) 07/07/18 15:35 RBC 3.08 Mil/uL (4.40-5.90) L 07/07/18 15:35 Hgb 9.7 g/dL (12.0-18.0) L 07/07/18 15:35 Hct 29.0 % (35.0-51.0) L 07/07/18 15:35 MCV 94.0 fl (80.0-94.0) 07/07/18 15:35 MCH 31.3 pg (27.0-31.0) H 07/07/18 15:35 MCHC 33.3 g/dL (33.0-37.0) 07/07/18 15:35 RDW 16.0 % (11.5-14.5) H 07/07/18 15:35 Plt Count 263 K/uL (130-400) 07/07/18 15:35 MPV 7.6 fl (7.2-11.7) 07/07/18 15:35 Neut % (Auto) 72.5 % (50.0-75.0) 07/07/18 15:35 Lymph % (Auto) 17.1 % (20.0-40.0) L 07/07/18 15:35 [place] % (Auto) 8.3 % (0.0-10.0) 07/07/18 15:35 Eos % (Auto) 1.6 % (0.0-4.0) 07/07/18 15:35 Baso % (Auto) 0.5 % (0.0-2.0) 07/07/18 15:35 Neut # (Auto) 7.3 K/uL (1.8-7.0) H 07/07/18 15:35 Lymph # (Auto) 1.7 K/uL (1.0-4.3) 07/07/18 15:35 [place] # (Auto) 0.8 K/uL (0.0-0.8) 07/07/18 15:35 Eos # (Auto) 0.2 K/uL (0.0-0.7) 07/07/18 15:35 Baso # (Auto) 0.0 K/uL (0.0-0.2) 07/07/18 15:35 PT 14.9 Seconds (9.8-13.1) H 07/08/18 06:05 INR 1.3 07/08/18 06:05 APTT 33.6 Seconds (25.6-37.1) 07/08/18 06:05 pO2 23 mm/Hg (30-55) L 07/07/18 15:41 VBG pH 7.35 (7.32-7.43) 07/07/18 15:41 VBG pCO2 59 mmHg (40-60) 07/07/18 15:41 VBG HCO3 27.3 mmol/L 07/07/18 15:41 VBG Total CO2 34.4 mmol/L (22-28) H 07/07/18 15:41 VBG O2 Sat (Calc) 41.8 % (40-65) 07/07/18 15:41 VBG Base Excess 5.2 mmol/L (0.0-2.0) H 07/07/18 15:41 VBG Potassium 4.5 mmol/L (3.6-5.2) 07/07/18 15:41 Sodium 135.0 mmol/L (132-148) 07/07/18 15:41 Chloride 102.0 mmol/L (98-107) 07/07/18 15:41 Glucose 83 mg/dL (75-110) 07/07/18 15:41 Lactate 1.4 mmol/L (0.7-2.1) 07/07/18 15:41 FiO2 21.0 % 07/07/18 15:41 Sodium 135 mmol/l (132-148) 07/07/18 15:35 Potassium 4.6 MMOL/L (3.6-5.0) 07/07/18 15:35 Chloride 100 mmol/L (98-107) 07/07/18 15:35 Carbon Dioxide 28 mmol/L (22-30) 07/07/18 15:35 Anion Gap 12 (10-20) 07/07/18 15:35 BUN 16 mg/dl (9-20) 07/07/18 15:35 Creatinine 0.7 mg/dl (0.8-1.5) L 07/07/18 15:35 Est GFR ( Amer) > 60 07/07/18 15:35 Est GFR (Non-Af Amer) > 60 07/07/18 15:35 POC Glucose (mg/dL) 90 mg/dL (65-110) 07/07/18 15:27 Random Glucose 84 mg/dL (75-110) 07/07/18 15:35 Calcium 8.5 mg/dL (8.4-10.2) 07/07/18 15:35 Total Bilirubin 0.4 mg/dl (0.2-1.3) 07/07/18 15:35 AST 21 U/L (17-59) 07/07/18 15:35 ALT 18 U/L (21-72) L 07/07/18 15:35 Alkaline Phosphatase 102 U/L (38-126) 07/07/18 15:35 Total Protein 6.5 G/DL (6.3-8.2) 07/07/18 15:35 Albumin 2.9 g/dL (3.5-5.0) L 07/07/18 15:35 Globulin 3.6 gm/dL (2.2-3.9) 07/07/18 15:35 Albumin/Globulin Ratio 0.8 (1.0-2.1) L 07/07/18 15:35 Venous Blood Potassium 4.5 mmol/L (3.6-5.2) 07/07/18 15:41 Urine Color Yellow (YELLOW) 07/07/18 16:12 Urine Clarity Turbid (Clear) 07/07/18 16:12 Urine pH 7.0 (5.0-8.0) 07/07/18 16:12 Ur Specific [place] 1.009 (1.003-1.030) 07/07/18 16:12 Urine Protein 30 mg/dL (NEGATIVE) 07/07/18 16:12 Urine Glucose (UA) Neg mg/dL (NEGATIVE) 07/07/18 16:12 Urine Ketones Negative mg/dL (NEGATIVE) 07/07/18 16:12 Urine Blood Moderate (NEGATIVE) 07/07/18 16:12 Urine Nitrate Negative (NEGATIVE) 07/07/18 16:12 Urine Bilirubin Negative (NEGATIVE) 07/07/18 16:12 Urine Urobilinogen 0.2-1.0 mg/dL (0.2-1.0) 07/07/18 16:12 Ur Leukocyte Esterase Large Michael/uL (Negative) 07/07/18 16:12 Urine RBC (Auto) 53 /hpf (0-3) H 07/07/18 16:12 Urine WBC Clumps (Auto) Many /hpf (NONE) H 07/07/18 16:12 Urine Microscopic WBC 1240 /hpf (0-5) H 07/07/18 16:12 Urine Bacteria Mod (<OCC) H 07/07/18 16:12 Urine Yeast (Budding) Mod /hpf (NEGATIVE) H 07/07/18 16:12 Digoxin 1.0 ng/mL (0.8-2.0) 07/07/18 15:35 - Hospital Course Hospital Course: This is an 83 y/o male with hx of recurrent UTI on sibley , hyupothyroidism and HTN and atrial fibrillation admitted for antibiotic treatment of persistent UTRI despite being on Invanz at the Detention. He was noted to have ESBL. laisha Giles revealed ESBL. ID was called and was switched to Merem. Indwelling cath was kept as per advice of Urologist. PICC line was placed and patient was discharged back to [facility] for continuation of IV antibiotics and fusther Phys therapy. He was discharged in stable condition. Discharge Exam - Head Exam Head Exam: NORMAL INSPECTION - Eye Exam Eye Exam: Normal appearance - Respiratory Exam Respiratory Exam: NORMAL BREATHING PATTERN - Cardiovascular Exam Cardiovascular Exam: Irregular Rhythm - GI/Abdominal Exam GI & Abdominal Exam: Normal Bowel Sounds Discharge Plan - Discharge Medications Prescriptions: Tamsulosin [Flomax] 0.4 mg PO DAILY #30 cap Meropenem [Merrem IV] 1 gm IVPB Q12 #24 vial - Follow Up Plan Condition: FAIR Disposition: REHAB FACILITY/REHAB UNIT Instructions: Urinary Tract Infection, Adult (DC), Extended-Spectrum Beta Lactamase Infection Additional Instructions: from [facility] Referrals: Brandon Vazquez MD [Medical Doctor] -
[2018-07-12] MEDS ORDERED: Ergocalciferol 50,000 Intl Units Cap PO SCH (19:08)
== END 2018-07-09 13:25 ==
LOC: H.ER 14:48 → INTOOBSV 16:54 → H.ERHOLD 16:54 → H.MEDSURG1 18:45
PROVIDERS: ADMIT Family Medicine; ATTEND Family Medicine
DX: N39.0 Urinary tract infection, site not specified (principal); B96.20 Unspecified Escherichia coli [E. coli] as the cause of diseases classified elsewhere; I48.2 Chronic atrial fibrillation; E03.9 Hypothyroidism, unspecified; I50.9 Heart failure, unspecified; I11.0 Hypertensive heart disease with heart failure; Z95.0 Presence of cardiac pacemaker; E78.00 Pure hypercholesterolemia, unspecified; R00.1 Bradycardia, unspecified; R94.31 Abnormal electrocardiogram [ECG] [EKG]; Z79.899 Other long term (current) drug therapy; Z79.890 Hormone replacement therapy; Z79.02 Long term (current) use of antithrombotics/antiplatelets; Z87.440 Personal history of urinary (tract) infections; Z79.82 Long term (current) use of aspirin; I25.10 Atherosclerotic heart disease of native coronary artery without angina pectoris
CPT/HCPCS: 36415; 36573; 71045; 80053; 80162; 81003; 82803; 82948; 85025; 85610; 85730; 87040; 87086; 87181; 93005; 94640; 99281; A4310; C1751; G0378; J2185; J2543; J7030

== ENCOUNTER 2018-07-09 20:44 | Emergency (ER) | payer MEDICARE ==
[2018-07-09 20:44] VITALS: PULSE 60; BMI 27.2
[2018-07-09 20:47] VITALS: PULSE 86; RESP 16; TEMP 98.8; O2SAT 95
--- NOTE | 2018-07-09 21:48 | ED PDOC ---
HPI: Male Pain Time Seen by Provider: 07/09/18 20:54 Chief Complaint (Nursing): Male Genitourinary Chief Complaint (Provider): Male Genitourinary History Per: Patient History/Exam Limitations: no limitations Onset/Duration Of Symptoms: Days (today) Quality Of Discomfort: "Pain" Additional Complaint(s): 83 year old male recently discharged from hospital today with Dong catheter for UTI presents to the ED for evaluation. Physical nursing report and patient report that he has not voided since leaving the hospital. He also reports suprapubic pain. PMD: Zaid Gallo Past Medical History Reviewed: Historical Data, Nursing Documentation, Vital Signs Vital Signs: Last Vital Signs Temp 98.8 F 07/09/18 20:46 Pulse 86 07/09/18 20:46 Resp 16 07/09/18 20:46 BP 135/79 07/09/18 20:46 Pulse Ox 95 07/09/18 20:46 Primary Care Provider: Zaid Gallo - Medical History PMH: Atrial Fibrillation, CAD, Cardia Arrhythmia (bradycardia), CHF, HTN, Hypercholesterolemia, Hypothyroidism Denies: HIV, Chronic Kidney Disease - Surgical History Surgical History: Pacemaker, Tonsillectomy - Family History Family History: States: Unknown Family Hx - Immunization History Hx Tetanus Toxoid Vaccination: No Hx Influenza Vaccination: Yes Hx Pneumococcal Vaccination: Yes - Home Medications Home Medications: Ambulatory Orders Medication Instructions Recorded Cyanocobalamin (Vitamin B-12) 250 mcg PO DAILY 12/29/17 [Vitamin B-12] Ergocalciferol (Vitamin D2) 50,000 unit PO MO 12/29/17 [Vitamin D2] Albuterol/Ipratropium [Duoneb 3 3 ml INH RTID neb 05/20/18 mg/0.5 mg (3 ml) UD] Aspirin [Aspirin Chewable] 81 mg PO DAILY chew 05/20/18 Carvedilol [Coreg] 3.125 mg PO Q12 tab 05/20/18 Clopidogrel [Plavix] 75 mg PO DAILY tab 05/20/18 Digoxin [Lanoxin] 0.25 mg PO SAT tab 05/20/18 Levothyroxine [Synthroid] 225 mcg PO DAILY@0630 tab 05/20/18 Lisinopril [Zestril] 2.5 mg PO DAILY tab 05/20/18 Midodrine [Proamatine] 5 mg PO TID tab 05/20/18 Docusate [Colace] 100 mg PO BID cap 06/18/18 Acetaminophen [Tylenol 325mg tab] 650 mg PO Q4 PRN 07/07/18 Acetaminophen [Tylenol 325mg tab] 650 mg PO Q4 PRN 07/07/18 Atorvastatin [Lipitor] 20 mg PO HS 07/07/18 Bisacodyl [Dulcolax] 10 mg RC DAILY PRN 07/07/18 Calcium Carbonate/Vitamin D3 1 tab PO BID 07/07/18 [Caltrate 600 Plus D3 Tablet] Digoxin 0.125 mg PO SUMOTUTHFR 07/07/18 Finasteride [Proscar] 5 mg PO DAILY 07/07/18 Lactulose [Enulose] 20 gm PO DAILY 07/07/18 Magnesium Hydroxide [Milk Of 30 ml PO HS PRN 07/07/18 Magnesia] Meropenem [Merrem IV] 1 gm IVPB Q12 #24 vial 07/09/18 Tamsulosin [Flomax] 0.4 mg PO DAILY #30 cap 07/09/18 - Allergies Allergies/Adverse Reactions: Allergies Allergy/AdvReac Type Severity Reaction Status Date / Time No Known Allergies Allergy Unknown RASH Verified 07/07/18 14:56 Review of Systems ROS Statement: Except As Marked, All Systems Reviewed And Found Negative Gastrointestinal: Positive for: Abdominal Pain Physical Exam - Reviewed Nursing Documentation Reviewed: Yes Vital Signs Reviewed: Yes - Physical Exam Appears: Positive for: Non-toxic, No Acute Distress Head Exam: Positive for: ATRAUMATIC, NORMOCEPHALIC Skin: Positive for: Normal Color, Warm, Dry Eye Exam: Positive for: Normal appearance, EOMI, PERRL Cardiovascular/Chest: Positive for: Regular Rate, Rhythm. Negative for: Murmur Respiratory: Positive for: Normal Breath Sounds. Negative for: Respiratory Distress Gastrointestinal/Abdominal: Positive for: Tenderness (suprapubic ), Distended Male Genital Exam: Positive for: other (Dong catheter in place) - ECG O2 Sat by Pulse Oximetry: 95 (RA) Pulse Ox Interpretation: Normal Medical Decision Making Medical Decision Making: Time: 2129 Impression: Dong catheter malfunction or malplacement, will flush Dong or replace 2214 --Dong was placed by physician with nurse assistance due to swelling of foreskin and difficulty visualizing meatus --Dong placed successfully with good urine output, patient reports feeling better --Ambulance ordered to take patient home Scribe Attestation: Documented by Yesika Diaz, acting as a scribe for Kali Crespo MD. Provider Scribe Attestation: All medical record entries made by the Scribe were at my direction and personally dictated by me. I have reviewed the chart and agree that the record accurately reflects my personal performance of the history, physical exam, medical decision making, and the department course for this patient. I have also personally directed, reviewed, and agree with the discharge instructions and disposition. Disposition - Clinical Impression Clinical Impression: Urinary retention - Patient ED Disposition Is Patient to be Admitted: No - Disposition Disposition: Long-Term Care Hospital Disposition Time: 22:15 Condition: IMPROVED Instructions: Urinary Retention (DC) Forms: [employer] ([place])
[2018-07-10 02:17] VITALS: BP 134/85
== END 2018-07-10 02:17 | disposition home or self-care (01) ==
LOC: H.ER 20:44
DX: R33.9 Retention of urine, unspecified (principal); E03.9 Hypothyroidism, unspecified; E78.00 Pure hypercholesterolemia, unspecified; I11.0 Hypertensive heart disease with heart failure; Z95.0 Presence of cardiac pacemaker